=== PATIENT | female | born 1955 | race Caucasian/White ===

== ENCOUNTER → 2017-11-21 11:45 | Outpatient (CLI) | payer OTHER, SELFPAY ==
[2017-11-21 17:27] LABS: Hemoglobin A1c 7.1 % (4.2-6.3)
[2017-11-21 18:08] LABS: AST(SGOT) 17 U/L (15-37); Alanine Aminotransfer ALT/SGPT 28 U/L (13-56); Albumin, Serum 3.4 g/dL (3.2-5.0); Alkaline Phosphatase 182 U/L (45-117); Anion Gap 9 (5-15); BUN 10 mg/dL (7-18); BUN/Creat Ratio 13.4 RATIO (10-20); Chloride 101 mmol/L (98-107); Cholesterol 230 mg/dL (200); Creatinine, Serum 0.75 mg/dL (0.55-1.02); EST Glomerular Filtration Rate 83 mL/min (>60); Est Glom Filt Rate - Afr Amer 101 mL/min (>60); Globulin 3.8 g/dL (2.2-4.2); Glucose 164 mg/dL (74-106); High Density Lipoprotein 43 mg/dL; Potassium 3.3 mmol/L (3.5-5.1); Protein, Total 7.2 g/dL (6.4-8.2); Sodium Level 139 mmol/L (136-145); Triglycerides 300 mg/dL; Very Low Density Lipoprotein 60 mg/dL (5-40)
== END ==
PROVIDERS: Family Provider Family Medicine; PCP Family Medicine; Visit Provider Family Medicine
DX: E11.9 Type 2 diabetes mellitus without complications (principal); I10 Essential (primary) hypertension
CPT/HCPCS: 36415; 80048; 80061; 80076; 83036

== ENCOUNTER 2018-10-12 14:12 | Emergency (ER) | payer SELFPAY ==
[2018-10-12] VITALS (8 sets, daily range): BP systolic 155–199; BP diastolic 78–135; PULSE 71–92; RESP 15–18; TEMP 36.7–37.1; O2SAT 91–95; BMI 26.7
--- NOTE | 2018-10-12 16:27 | CT_ITS ---
STUDY: CT BRAIN WITHOUT CONTRAST REASON FOR EXAM: Female, 63 years old. Weakness. History of breast cancer. RADIATION DOSAGE (If Supplied By Facility): CTDIvol = ( 44.99 ) mGy, DLP = ( 728.62 ) mGycm TECHNIQUE: Transaxial CT imaging of the brain was performed without administration of intravenous contrast material. Individualized dose optimization techniques were used for this CT. COMPARISON: None. FINDINGS: There is no acute bleed or infarct. There are chronic ischemic and atrophic changes. The ventricles are normal in configuration. There is no hydrocephalus. The visualized paranasal sinuses are clear. The mastoid air cells are well aerated. There is no skull fracture. CT/Brain/Head without Contrast IMPRESSION: No acute intracranial abnormality. Chronic ischemic and atrophic changes. Electronically Signed: Juan Carlos Stallings, at 17:48 EST Tel , Service support ,
--- NOTE | 2018-10-12 16:28 | EKG12_ITS ---
Test Reason : Blood Pressure : / mmHG Vent. Rate : 082 BPM Atrial Rate : 082 BPM P-R Int : 118 ms QRS Dur : 086 ms QT Int : 406 ms P-R-T Axes : 000 020 245 degrees QTc Int : 474 ms Sinus rhythm with occasional Premature ventricular complexes ST & T wave abnormality, consider inferolateral ischemia Anterior septal [place], age undetermined, cannot be excluded Abnormal ECG Confirmed by KATHARINA LEO, MYRON ([id number]), supervising editor trailer JEFFERY MEJIA ([id number]) on 10/14/2018 3:27:16 PM Referred By: PATTI Confirmed By:MYRON POSADAS MD
--- NOTE | 2018-10-12 16:29 | ED.VISSUMM ---
- ER Visit Summary Date of Service: 10/12/18 Chief Complaint: Vertigo History of Present Illness: The patient is a 63 F who presents with 1 month of vertigo. Patient states she has had constant symptoms for the last month, described as feeling dizzy and spinning. Symptoms are worse if she changes positions or bends forward. She denies any period where she is not having symptoms but emphasizes that it is worse if she stands up or bends her head forward. Patient denies any associated fever, headache, vision changes, URI symptoms, chest pain, shortness of breath or cough, abdominal pain, nausea or vomiting, diarrhea, urinary symptoms or any other complaints. She has history of COPD, hypothyroidism, hypokalemia, diabetes, hypertension and cholesterol. No history of stroke or coronary artery disease. Patient is a smoker and drinks once a week. Patient is not on home oxygen. Physical Examination: Vital signs: afebrile, hemodynamically stable, 91% on room air General: well nourished, well developed, unkempt appearing, in no distress Skin: warm, dry, no rash, no pallor HEENT: normocephalic and atraumatic; PERRL, EOMI, dry mucous membranes Cardiovascular: regular rate and rhythm without murmurs, no peripheral edema, 2+ pulses all distal extremities Respiratory: No increased work of breathing, lungs show diffuse inspiratory and expiratory wheezing bilaterally Abdominal: Abdomen is soft, nontender with normoactive bowel sounds, no guarding or rebound, no masses MSK: Moves all extremities, no deformities, normal strength Neuro: Awake and alert, oriented ?4. No facial droop, sensation and motor function intact and symmetric, normal finger to nose and heel to garcia testing. Test Results: Abnormal Lab Results 10/12/18 10/12/18 10/12/18 16:35 16:35 16:35 WBC 10.7 RBC 5.21 Hgb 15.2 H Hct 45.6 MCV 87.5 MCH 29.2 MCHC 33.3 RDW 13.9 RDW Differential 44.9 H Plt Count 277 MPV 10.9 Immature Gran % (Auto) 0.300 Neut % (Auto) 58.4 Lymph % (Auto) 33.3 [place] % (Auto) 6.0 Eos % (Auto) 1.3 Baso % (Auto) 0.7 Absolute Neuts (auto) 6.2 Absolute Lymphs (auto) 3.55 Total Counted Not Reportable PT 11.9 INR 0.9 APTT 27.2 Sodium 134 L Potassium 3.2 L Chloride 94 L Carbon Dioxide 33.0 H Anion Gap 7 BUN 14 Creatinine 1.12 H Estim Creat Clear Calc 36.45 Est GFR (MDRD) Af Amer 63 Est GFR (MDRD) Non-Af 52 L BUN/Creatinine Ratio 12.5 Glucose 371 H Calcium 8.9 Total Bilirubin 0.50 AST 21 ALT 20 Alkaline Phosphatase 157 H Troponin I < 0.015 Total Protein 6.7 Albumin 3.4 Globulin 3.3 Albumin/Globulin Ratio 1.0 Urine Color Urine Clarity Urine pH Ur Specific [place] Urine Protein Urine Glucose (UA) Urine Ketones Urine Occult Blood Urine Nitrite Urine Bilirubin Urine Urobilinogen Ur Leukocyte Esterase Urine RBC Urine WBC Ur Squamous Epith Cells Urine Bacteria Urine Mucus Urine Yeast 10/12/18 17:35 WBC RBC Hgb Hct MCV MCH MCHC RDW RDW Differential Plt Count MPV Immature Gran % (Auto) Neut % (Auto) Lymph % (Auto) [place] % (Auto) Eos % (Auto) Baso % (Auto) Absolute Neuts (auto) Absolute Lymphs (auto) Total Counted PT INR APTT Sodium Potassium Chloride Carbon Dioxide Anion Gap BUN Creatinine Estim Creat Clear Calc Est GFR (MDRD) Af Amer Est GFR (MDRD) Non-Af BUN/Creatinine Ratio Glucose Calcium Total Bilirubin AST ALT Alkaline Phosphatase Troponin I Total Protein Albumin Globulin Albumin/Globulin Ratio Urine Color Yellow Urine Clarity Sl. Cloudy Urine pH 7.0 Ur Specific [place] 1.015 Urine Protein 100 H Urine Glucose (UA) 1000 H Urine Ketones Negative Urine Occult Blood 10 H Urine Nitrite Negative Urine Bilirubin Negative Urine Urobilinogen Normal Ur Leukocyte Esterase 100 H Urine RBC 0 SEEN Urine WBC 0-5 SEEN Ur Squamous Epith Cells 5-10 SEEN Urine Bacteria RARE Urine Mucus 0 SEEN Urine Yeast RARE Clinical Impression(s) from Imaging Studies Brain CT 10/12/18 16:27 IMPRESSION: No acute intracranial abnormality. Chronic ischemic and atrophic changes. Electronically Signed: Juan Carlos Stallings, at 17:48 EST Tel , Service support , Chest X-Ray 10/12/18 16:56 IMPRESSION: No acute thoracic pathology. Electronically Signed: Juan Carlos Stallings, at 17:15 EST Tel , Service support , Medications Given Discontinued Medications Sodium Chloride () 1,000 mls @ 1,000 mls/hr IV .Q1H ONE Stop: 10/12/18 17:26 Last Admin: 10/12/18 16:52 Dose: 1,000 mls/hr Meclizine HCl (Antivert) 25 mg PO X1 ONE Stop: 10/12/18 16:33 Last Admin: 10/12/18 16:52 Dose: 25 mg Emergency Department Course and Treatment: Patient states she has been having vertigo for 1 month that is worse with positional changes but is constant. Patient's history of her current complaint and her physical exam is less concerning for central origin, such as stroke. EKG showed a sinus rhythm with diffuse T wave changes, present on an old EKG. CBC unremarkable for leukocytosis or anemia. Chemistry showed no significant lab abnormalities other than mild hypokalemia, for which patient is aware. Urine was negative for infection. Troponin negative. Chest x-ray showed no acute process. Head CT was performed given patient's age and lack of prior workup, and it showed no acute changes. Patient was given IV fluids and meclizine and had great improvement in her symptoms. On reevaluation she remained neurologically intact with no deficits. She was discharged home with a prescription for meclizine. Her blood pressure was elevated while in the emergency department, and patient states she is not taking her medications because it is hard for her to get to the pharmacy to pick them up. That she takes them every other day or less so that they stretch out longer. We discussed the importance of medication compliance since she is currently hypertensive. We discussed the possibility of a mail order prescription, and she will discuss this with her doctor. Patient's blood pressure was not aggressively treated in the emergency department since it is likely chronically elevated and rapid lowering could have worse outcomes then patient taking her medication when she got home. Patient discharged home in improved condition. Treatment Plan: [] Disposition: [] Impression: Peripheral vertigo, episodic, medication noncompliance, poorly controlled hypertension This note was generated with [employer]Bion[employer] software. It may contain incorrect words, spelling, and punctuation that were not noted in review of the chart prior to signing ED Disposition - Plan for ED Patient: Disposition: Home or Assisted Living Chief Complaint: General Illness Instructions: Dizziness (Vertigo) and Balance Problems: Ensuring Your Safety, ED BPV Vertigo Prescriptions: RX: Meclizine HCl 25 mg PO TID PRN #15 tab PRN Reason: Vertigo Referrals: Lydia Moore MD [Primary Care Provider] - 3-5 Days Additional Instructions: Please look into getting your prescriptions delivered by mail so that you can take your medications as prescribed. Your blood pressure is too high and you need to be on your medications every day. Your blood sugar is also too high and you need occasions every day. Take the meclizine as needed for spinning sensation/vertigo. Follow-up with your doctor if you continue to have symptoms despite taking meclizine. If you have any worsening of your condition or any new concerning symptoms, please return immediately to the emergency department for another evaluation.
[2018-10-12 16:52] LABS: Absolute Lymphocyte Count 3.55 X10^3/ul (0.83-4.51); Absolute Neutrophil Count 6.2 X10^3/uL (2.0-7.7); Basophil# 0.07 X10^3/uL; Basophil% 0.7 % (0-1); Eosinophil# 0.14 X10^3/uL; Eosinophils% 1.3 % (0-5); Hematocrit 45.6 % (37-47); Hemoglobin 15.2 g/dl (12.0-15.0); Lymphocyte # 3.55 X10^3/ul (4.0); Lymphocyte % 33.3 % (19-41); Mean Corp Hgb Conc 33.3 g/gl (32-36); Mean Corpuscular Hgb 29.2 pg (27.0-32.0); Mean Corpuscular Volume 87.5 fL (81-99); Mean Platelet Vol. 10.9 fl (6.2-12.0); Monocyte# 0.64 X10^3/uL; Neutrophil # 6.24 X10^3/uL (2.7-7.7); Neutrophil % 58.4 % (47-70); Platelet Count 277 K/mm3 (150-450); RBC Distribution Width CV 13.9 % (11.6-14.6); RBC Distribution Width SD 44.9 fl (35.1-43.9); Red Blood Count 5.21 M/mm3 (4.2-5.4); White Blood Count 10.7 K/mm3 (4.4-11.0)
[2018-10-12] MEDS: 0.9% Normal Saline 1,000 ML 1000 ML IV (16:52)
[2018-10-12] MEDS: Meclizine HCl 25 MG Tablet PO (16:52)
--- NOTE | 2018-10-12 16:56 | RAD_ITS ---
STUDY: X-RAY CHEST REASON FOR EXAM: Female, 63 years old. Shortness of breath TECHNIQUE: Frontal and lateral views of the chest COMPARISON: 11/14/2016 FINDINGS: The lungs are clear. There are no pleural effusions. There is no pneumothorax. The heart is normal in size. The visualized osseous structures are within normal limits. RAD/Chest PA and Lateral IMPRESSION: No acute thoracic pathology. Electronically Signed: Juan Carlos Stallings, at 17:15 EST Tel , Service support ,
[2018-10-12 17:00] LABS: POSITIVE COUNT NO; POSITIVE DIFFERENTIAL NO; POSITIVE MORPHOLOGY NO
[2018-10-12 17:05] LABS: International Normalized Ratio 0.9; Partial Thromboplast Time 27.2 Seconds (24.1-36.2); Prothrombin Time (Protime)PT. 11.9 SECONDS (11.7-14.9)
[2018-10-12 17:16] LABS: AST(SGOT) 21 U/L (15-37); Alanine Aminotransfer ALT/SGPT 20 U/L (13-56); Albumin, Serum 3.4 g/dL (3.2-5.0); Alkaline Phosphatase 157 U/L (45-117); Anion Gap 7 (5-15); BUN 14 mg/dL (7-18); BUN/Creat Ratio 12.5 RATIO (10-20); Calcium,Total 8.9 mg/dL (8.5-10.1); Chloride 94 mmol/L (98-107); Creatinine, Serum 1.12 mg/dL (0.55-1.02); EST Glomerular Filtration Rate 52 mL/min (>60); Est Glom Filt Rate - Afr Amer 63 mL/min (>60); Estimated Creatinine Clearance 36.45 ml/min; Globulin 3.3 g/dL (2.2-4.2); Glucose 371 mg/dL (74-106); Potassium 3.2 mmol/L (3.5-5.1); Protein, Total 6.7 g/dL (6.4-8.2); Sodium Level 134 mmol/L (136-145)
[2018-10-12 17:39] LABS: Mucous, Urine 0 SEEN /hpf (<or=2+)
[2018-10-12 17:41] LABS: Color, Urine Yellow (Yellow); Glucose, Dipstick 1000 mg/dl (Normal); Ketone-Dipstick Negative (Negative); Leukocyte Esterase-Dipstick 100 /ul (Negative); Nitrite-Dipstick Negative (Negative); Occult Blood-Urine 10 /ul (Negative); Protein-Dipstick 100 mg/dl (Negative); Specific Gravity, Urine 1.015 (1.002-1.030); Urine Bilirubin Dipstick Negative (Negative); Urine Clarity Sl. Cloudy (Clear); Urine Urobilinogen Normal (Normal)
[2018-10-12 18:24] LABS: Bacteria RARE /hpf (None Seen); Squamous Epithelial Cells - UA 5-10 SEEN /hpf (5-10); White Blood Cells 0-5 SEEN /hpf (0-5)
[2018-10-12 18:25] LABS: Red Blood Cells-Urine 0 SEEN /hpf (0-5); Yeast-Urine RARE /hpf (None Seen)
--- NOTE | 2018-10-12 19:53 | ED.DEP ---
ED Disposition - Plan for ED Patient: Disposition: Home or Assisted Living Chief Complaint: General Illness Instructions: ED BPV Vertigo, Dizziness (Vertigo) and Balance Problems: Ensuring Your Safety Prescriptions: Meclizine HCl 25 mg PO TID PRN #15 tab PRN Reason: Vertigo Referrals: Lydia Moore MD [Primary Care Provider] - 3-5 Days Additional Instructions: Please look into getting your prescriptions delivered by mail so that you can take your medications as prescribed. Your blood pressure is too high and you need to be on your medications every day. Your blood sugar is also too high and you need occasions every day. Take the meclizine as needed for spinning sensation/vertigo. Follow-up with your doctor if you continue to have symptoms despite taking meclizine. If you have any worsening of your condition or any new concerning symptoms, please return immediately to the emergency department for another evaluation.
== END 2018-10-12 20:08 | disposition home or self-care (01) ==
PROVIDERS: Emergency Provider Emergency Medicine; Family Provider Family Medicine; PCP Family Medicine
DX: H81.399 Other peripheral vertigo, unspecified ear (principal); Z91.14 Patient's other noncompliance with medication regimen; I10 Essential (primary) hypertension; E11.9 Type 2 diabetes mellitus without complications; E78.00 Pure hypercholesterolemia, unspecified; J44.9 Chronic obstructive pulmonary disease, unspecified; E03.9 Hypothyroidism, unspecified; F17.200 Nicotine dependence, unspecified, uncomplicated
CPT/HCPCS: 70450; 71046; 80053; 81001; 84484; 85025; 85610; 85730; 93005; 96360; 99285; J7030; A4216

== ENCOUNTER 2019-03-23 17:28 | Emergency (ER) | payer SELFPAY ==
[2018-10-12 14:13] VITALS: BMI 26.7
[2019-03-23 17:28] VITALS: BP 187/110; PULSE 87; RESP 16; TEMP 36.6; O2SAT 92; BMI 25.7
--- NOTE | 2019-03-23 18:04 | RAD_ITS ---
STUDY: X-RAY CHEST REASON FOR EXAM: Female, 63 years old. Shortness of breath and cough TECHNIQUE: Frontal and lateral views of the chest. COMPARISON: October 12, 2018 FINDINGS: Surgical clips left axilla The lungs are clear and expanded. There is no demonstrated pleural abnormality. Normal size heart. Normal mediastinum and jason. Normal visualized pulmonary arteries. Normal visualized aortic arch and descending thoracic aorta. Normal visualized thoracic spine. Normal visualized ribs, clavicles, and shoulders. There is no demonstrated abnormality of the visualized soft tissue structures of the upper abdomen. RAD/Chest PA and Lateral IMPRESSION: No acute disease Electronically Signed: Kai Breaux MD at 19:42 EDT , Service support ,
--- NOTE | 2019-03-23 18:04 | CT_ITS ---
STUDY: CT BRAIN WITHOUT CONTRAST REASON FOR EXAM: Female, 63 years old. Dizziness and unsteadiness. Frequent falls x1 month. History of breast cancer, hypertension and diabetes. RADIATION DOSAGE (If Supplied By Facility): CTDIvol = ( 44.99 ) mGy, DLP = ( 745.49 ) mGycm TECHNIQUE: Transaxial CT imaging of the brain was performed without administration of intravenous contrast material. Individualized dose optimization techniques were used for this CT. COMPARISON: October 12, 2018. FINDINGS: Normal soft tissue structures. Normal calvarium. Normal size ventricles and extra-axial spaces for the patient's age. There are areas of decreased attenuation within the white matter tracts of the supratentorial brain, consistent with microvascular disease changes. There is a remote lacunar infarct in the head of the right caudate nucleus. Old lacunar infarct is seen in the left external capsule. Otherwise normal basal ganglia and thalami. Normal brainstem. Normal cerebellum. There is no intracranial hemorrhage. There are no findings of an acute ischemic infarction. Normal visualized paranasal sinuses. CT/Brain/Head without Contrast IMPRESSION: Chronic involutional changes without evidence of acute intracranial or calvarial abnormality. There is no major interval change. Electronically Signed: Jose Paredes DO at 19:19 EDT Tel [phone], Service support ,
--- NOTE | 2019-03-23 18:06 | EKG12_ITS ---
Test Reason : Blood Pressure : / mmHG Vent. Rate : 085 BPM Atrial Rate : 085 BPM P-R Int : 152 ms QRS Dur : 074 ms QT Int : 354 ms P-R-T Axes : 051 032 249 degrees QTc Int : 421 ms Normal sinus rhythm Septal infarct , age undetermined ST & T wave abnormality, consider inferolateral ischemia Abnormal ECG Confirmed by BLANKA FLORES ([id number]), art editor BRIGITTE VILLEGAS ([id number]) on 03/29/2019 10:18:00 AM Referred By: TL Confirmed By:BLANKA FLORES
--- NOTE | 2019-03-23 18:08 | ED.DCSUM_ITS ---
- ER Visit Summary Date of Service: 03/23/19 Chief Complaint: Unsteady gait and frequent falls History of Present Illness: The patient is a 63 F who presents with unsteady gait and frequent falls for the past month. Patient states she has been falling more frequently over the past month. Patient states she feels like she is off balance. Patient also admits to some slurred speech and increasing fatigue over this time. Patient also admits to some urinary frequency and occasional incontinence. Patient admits to subjective chills but denies any fevers. Patient admits to nausea but denies any vomiting. Patient also admits to chronic back pain. Patient denies any chest pain or shortness of breath. Physical Examination: Vital signs are stable except for mildly elevated blood pressure 187/110. Patient is afebrile. Patient is in no acute distress. Oral mucosa is pink and moist. Neck is supple. Trachea is midline. There is no JVD noted. Heart was regular rate and rhythm. Lungs are clear and equal bilaterally. Abdomen is soft. Bowel sounds are normal. There is no tenderness. There is no guarding noted. Cranial nerves II through XII are intact. There are no focal motor or sensory deficits noted. Extremities are intact. There is 2+ edema of the right lower extremity 1+ edema of the left lower extremity. Test Results: EKG showed normal sinus rhythm with a rate of 85. There are nonspecific ST-T wave changes in leads V4 through V6. These were unchanged compared to previous EKG dated 10/12/2018. CBC shows slight leukocytosis of 14.0. Potassium was slightly low at 2.8. Glucose was 270. Creatinine is 1.13. This was consistent with prior results. Urinalysis does not show any evidence of urinary tract infection. Troponin was normal. CT scan of the brain was obtained. There is no acute abnormality. Venous duplex of the right lower extremity was obtained and was negative. PA and lateral chest x-ray was obtained. There is no acute cardiopulmonary process. Emergency Department Course and Treatment: Patient was given a dose of oral potassium here. Patient was able to ambulate with a wheeled walker without difficulty. Patient feels like she can go home safely with a wheeled walker. Patient was instructed to take an extra dose of potassium tomorrow. Patient was instructed to follow-up with her primary care physician in 3-5 days. Patient understood and was agreeable with the plan. All questions were answered. Disposition: Discharge home Impression: 1. Hypokalemia 2. General weakness This note was generated with [employer]idence dictation software. It may contain incorrect words, spelling, and punctuation that were not noted in review of the chart prior to signing ED Disposition - Plan for ED Patient: Disposition: Home or Assisted Living Diagnosis: Hypokalemia, General weakness Instructions: Hypokalemia Referrals: Lydia Moore MD [Primary Care Provider] - 3-5 Days Additional Instructions: Your potassium was low today. Take an extra dose of potassium tomorrow. Follow-up with your primary care physician in 3 to 5 days.
--- NOTE | 2019-03-23 18:20 | US_ITS ---
STUDY: VENOUS DOPPLER ULTRASOUND - RIGHT LOWER EXTREMITY REASON FOR EXAM: Female, 63 years old. Swelling right calf TECHNIQUE: Ultrasound evaluation of the deep vein system to include barillas-scale imaging and compression was performed. Barillas-scale imaging and Doppler sonographic evaluation, including duplex spectral analysis and qualitative color flow sonography, was performed. COMPARISON: None. FINDINGS: Common Femoral Vein: Normal compression, spontaneity and augmentation. Normal color Doppler. Common Femoral Vein/Greater Saphenous Junction: Normal compression, spontaneity and augmentation. Normal color Doppler. Deep Femoral Vein: Normal compression, spontaneity and augmentation. Normal color Doppler. Femoral Proximal: Normal compression, spontaneity and augmentation. Normal color Doppler. Femoral Middle: Normal compression, spontaneity and augmentation. Normal color Doppler. Femoral Distal: Normal compression, spontaneity and augmentation. Normal color Doppler. Popliteal Vein: Normal compression, spontaneity and augmentation. Normal color Doppler. Posterior Tibial Vein: Normal compression, spontaneity and augmentation. Normal color Doppler. Peroneal Vein: Normal compression, spontaneity and augmentation. Normal color Doppler. US/Venous Duplex Imag/Limited/Uni IMPRESSION: Normal venous Doppler ultrasound of the lower extremity. Electronically Signed: Kai Breaux MD at 19:55 EDT , Service support ,
[2019-03-23 18:37] LABS: Absolute Lymphocyte Count 4.08 X10^3/ul (0.83-4.51); Absolute Neutrophil Count 8.8 X10^3/uL (2.0-7.7); Basophil# 0.09 X10^3/uL; Basophil% 0.6 % (0-1); Eosinophil# 0.19 X10^3/uL; Eosinophils% 1.4 % (0-5); Hematocrit 46.6 % (37-47); Hemoglobin 15.5 g/dl (12.0-15.0); Lymphocyte # 4.08 X10^3/ul (4.0); Lymphocyte % 29.2 % (19-41); Mean Corp Hgb Conc 33.3 g/gl (32-36); Mean Corpuscular Hgb 28.3 pg (27.0-32.0); Mean Corpuscular Volume 85.2 fL (81-99); Mean Platelet Vol. 10.7 fl (6.2-12.0); Monocyte# 0.77 X10^3/uL; Monocyte% 5.5 % (0-10); Neutrophil # 8.78 X10^3/uL (2.7-7.7); Neutrophil % 62.9 % (47-70); Platelet Count 292 K/mm3 (150-450); RBC Distribution Width CV 14.3 % (11.6-14.6); RBC Distribution Width SD 43.9 fl (35.1-43.9); Red Blood Count 5.47 M/mm3 (4.2-5.4)
[2019-03-23 18:39] LABS: POSITIVE COUNT NO; POSITIVE DIFFERENTIAL NO; POSITIVE MORPHOLOGY NO
[2019-03-23 18:58] LABS: ALB/GLOB Ratio 0.7 RATIO (0.9-2.4); AST(SGOT) 13 U/L (15-37); Alanine Aminotransfer ALT/SGPT 22 U/L (13-56); Albumin, Serum 3.1 g/dL (3.2-5.0); Alkaline Phosphatase 159 U/L (45-117); Anion Gap 10 (5-15); BUN 16 mg/dL (7-18); BUN/Creat Ratio 14.2 RATIO (10-20); Calcium,Total 10.2 mg/dL (8.5-10.1); Chloride 95 mmol/L (98-107); Creatinine, Serum 1.13 mg/dL (0.55-1.02); EST Glomerular Filtration Rate 51 mL/min (>60); Est Glom Filt Rate - Afr Amer 62 mL/min (>60); Estimated Creatinine Clearance 36.13 ml/min; Globulin 4.2 g/dL (2.2-4.2); Glucose 270 mg/dL (74-106); Potassium 2.8 mmol/L (3.5-5.1); Protein, Total 7.3 g/dL (6.4-8.2); Sodium Level 139 mmol/L (136-145)
[2019-03-23 19:36] LABS: Bacteria 0 SEEN /hpf (None Seen); Mucous, Urine 0 SEEN /hpf (<or=2+)
[2019-03-23 19:42] LABS: Color, Urine Yellow (Yellow); Glucose, Dipstick 100 mg/dl (Normal); Ketone-Dipstick Negative (Negative); Leukocyte Esterase-Dipstick Negative /ul (Negative); Nitrite-Dipstick Negative (Negative); Occult Blood-Urine 10 /ul (Negative); Protein-Dipstick 100 mg/dl (Negative); Urine Bilirubin Dipstick Negative (Negative); Urine Clarity Clear (Clear); Urine Urobilinogen Normal (Normal)
[2019-03-23 19:48] LABS: Red Blood Cells-Urine 0-5 SEEN /hpf (0-5); Squamous Epithelial Cells - UA 0-5 SEEN /hpf (5-10); White Blood Cells 0-5 SEEN /hpf (0-5)
[2019-03-23 20:23] VITALS: BP 163/112; PULSE 79; RESP 16; O2SAT 91
[2019-03-23 21:04] VITALS: BP 148/95; PULSE 84; RESP 18; O2SAT 94
== END 2019-03-23 21:05 | disposition home or self-care (01) ==
PROVIDERS: Emergency Provider Emergency Medicine; Family Provider Family Medicine; PCP Family Medicine
DX: E87.6 Hypokalemia (principal); R53.1 Weakness; R60.0 Localized edema; R47.81 Slurred speech; R35.0 Frequency of micturition; R32 Unspecified urinary incontinence; R29.6 Repeated falls; M54.9 Dorsalgia, unspecified; G89.29 Other chronic pain; E11.9 Type 2 diabetes mellitus without complications; I10 Essential (primary) hypertension; E78.00 Pure hypercholesterolemia, unspecified; E03.9 Hypothyroidism, unspecified; Z79.84 Long term (current) use of oral hypoglycemic drugs; Z79.899 Other long term (current) drug therapy; F17.200 Nicotine dependence, unspecified, uncomplicated
CPT/HCPCS: 70450; 71046; 80053; 81001; 84484; 85025; 93005; 93971; 99285; A4216

== ENCOUNTER → 2019-12-27 11:16 | Outpatient (CLI) | payer BC, SELFPAY ==
[2019-12-27 10:47] VITALS: BMI 25.7
[2019-12-27 12:56] LABS: Absolute Lymphocyte Count 3.82 X10^3/uL (0.83-4.51); Absolute Neutrophil Count 7.4 X10^3/uL (2.0-7.7); Basophil# 0.13 X10^3/uL; Eosinophil# 0.54 X10^3/uL; Eosinophils% 4.3 % (0-5); Hemoglobin 14.6 g/dL (12.0-15.0); Lymphocyte # 3.82 X10^3/ul (4.0); Lymphocyte % 30.4 % (19-41); Mean Corp Hgb Conc 31.7 g/dL (32-36); Mean Corpuscular Hgb 27.3 pg (27.0-32.0); Mean Platelet Vol. 11.4 fl (6.2-12.0); Monocyte# 0.65 X10^3/uL; Monocyte% 5.2 % (0-10); NRBC Flagged by Analyzer 0 % (0-5); Neutrophil # 7.38 X10^3/uL (2.7-7.7); Neutrophil % 58.6 % (47-70); Platelet Count 261 K/mm3 (150-450); RBC Distribution Width SD 43.4 fl (35.1-43.9); Red Blood Count 5.35 M/mm3 (4.2-5.4); White Blood Count 12.6 K/mm3 (4.4-11.0)
[2019-12-27 12:57] LABS: Hemoglobin A1c 11.7 % (4.2-6.3)
[2019-12-27 13:15] LABS: ALB/GLOB Ratio 0.8 RATIO (0.9-2.4); AST(SGOT) 16 U/L (15-37); Alanine Aminotransfer ALT/SGPT 18 U/L (13-56); Albumin, Serum 3.1 g/dL (3.2-5.0); Alkaline Phosphatase 179 U/L (45-117); Anion Gap 5 (5-15); BUN 15 mg/dL (7-18); Calcium,Total 9.3 mg/dL (8.5-10.1); Chloride 97 mmol/L (98-107); Cholesterol 284 mg/dL (200); Creatinine, Serum 1.07 mg/dL (0.55-1.02); EST Glomerular Filtration Rate 55 mL/min (>60); Est Glom Filt Rate - Afr Amer 66 mL/min (>60); Globulin 3.8 g/dL (2.2-4.2); Glucose 317 mg/dL (74-106); High Density Lipoprotein 45 mg/dL; Potassium 3.2 mmol/L (3.5-5.1); Protein, Total 6.9 g/dL (6.4-8.2); Sodium Level 135 mmol/L (136-145); Triglycerides 386 mg/dL; Very Low Density Lipoprotein 77 mg/dL (5-40)
[2019-12-27 14:55] LABS: Microalbumin:Creatinine Ratio 5368.7 mg/g CRE (<30 mg/g CRE)
== END ==
PROVIDERS: PCP Internal Medicine; Referring Provider Internal Medicine; Visit Provider Internal Medicine
DX: E03.9 Hypothyroidism, unspecified (principal); I10 Essential (primary) hypertension; E11.9 Type 2 diabetes mellitus without complications
CPT/HCPCS: 36415; 80053; 80061; 82043; 82570; 83036; 84443; 85025

== ENCOUNTER 2020-01-10 17:23 | Inpatient (IN) | payer BC, SELFPAY ==
[2020-01-04 09:14] VITALS: BMI 25.7
[2020-01-10 17:24] VITALS: BP 163/93; PULSE 99; RESP 18; TEMP 36.7; O2SAT 93; BMI 22.6
--- NOTE | 2020-01-10 17:35 | CT_ITS ---
STUDY: CT BRAIN WITHOUT CONTRAST REASON FOR EXAM: Female, 64 years old. FALL, HIT HEAD. NO LOC. RADIATION DOSAGE (If Supplied By Facility): CTDIvol = ( 44.99 ) mGy, DLP = ( 745.49 ) mGycm TECHNIQUE: Transaxial CT imaging of the brain was performed without administration of intravenous contrast material. Individualized dose optimization techniques were used for this CT. COMPARISON: 03/23/2019. FINDINGS: Normal soft tissue structures. Normal calvarium. There is moderate cerebral atrophy with widening of the extra-axial spaces and ventricular dilatation. There are areas of decreased attenuation within the white matter tracts of the supratentorial brain, consistent with microvascular disease changes. There is no intracranial hemorrhage. There are no findings of an acute words or infarct. Chronic right caudate and basal ganglia lacunar infarcts. Chronic left caudate, basal ganglia, and thalamic lacunar infarcts. Normal visualized paranasal sinuses. CT/Brain/Head without Contrast IMPRESSION: 1. No acute findings. 2. Chronic bilateral lacunar infarcts. 3. Microvascular ischemia. Atrophy. Electronically Signed: Rosario Perry MD at 19:09 EDT Tel , Service support ,
--- NOTE | 2020-01-10 17:36 | EKG12_ITS ---
Test Reason : FALL Blood Pressure : / mmHG Vent. Rate : 103 BPM Atrial Rate : 103 BPM P-R Int : 144 ms QRS Dur : 082 ms QT Int : 332 ms P-R-T Axes : 066 046 231 degrees QTc Int : [address] & T wave abnormality, consider inferior ischemia ST & T wave abnormality, consider anterolateral ischemia Abnormal ECG Confirmed by KATHARINA LEO, MYRON ([id number]), food expeditor CARLOS SNELL ([id number]) on 01/11/2020 1:43:58 PM Referred By: DC Confirmed By:MYRON POSADAS MD
[2020-01-10] MEDS: fentaNYL 100 MCG/2 ML Ampul 50 MCG IV (17:59)
[2020-01-10 18:00] LABS: Absolute Lymphocyte Count 3.65 X10^3/uL (0.83-4.51); Basophil# 0.08 X10^3/uL; Basophil% 0.6 % (0-1); Eosinophil# 0.13 X10^3/uL; Hematocrit 46.9 % (37-47); Hemoglobin 15.2 g/dL (12.0-15.0); Lymphocyte # 3.65 X10^3/ul (4.0); Lymphocyte % 28.7 % (19-41); Mean Corp Hgb Conc 32.4 g/dL (32-36); Mean Corpuscular Hgb 28.4 pg (27.0-32.0); Mean Corpuscular Volume 87.5 fL (81-99); Mean Platelet Vol. 10.9 fl (6.2-12.0); Monocyte# 0.74 X10^3/uL; Monocyte% 5.8 % (0-10); NRBC Flagged by Analyzer 0 % (0-5); Neutrophil # 8.01 X10^3/uL (2.7-7.7); Platelet Count 341 K/mm3 (150-450); RBC Distribution Width CV 13.6 % (11.6-14.6); RBC Distribution Width SD 43.4 fl (35.1-43.9); Red Blood Count 5.36 M/mm3 (4.2-5.4); White Blood Count 12.7 K/mm3 (4.4-11.0)
[2020-01-10] MEDS: Ondansetron 4 MG/2 ML Vial IV (18:00)
[2020-01-10 18:14] LABS: Anion Gap 5 (5-15); BUN 18 mg/dL (7-18); BUN/Creat Ratio 15.9 RATIO (10-20); Calcium,Total 9.5 mg/dL (8.5-10.1); Chloride 102 mmol/L (98-107); Creatinine, Serum 1.13 mg/dL (0.55-1.02); EST Glomerular Filtration Rate 51 mL/min (>60); Est Glom Filt Rate - Afr Amer 62 mL/min (>60); Estimated Creatinine Clearance 35.65 ml/min; Glucose 316 mg/dL (74-106); Potassium 3.1 mmol/L (3.5-5.1); Sodium Level 138 mmol/L (136-145)
[2020-01-10 18:23] VITALS: BP 164/91; PULSE 88; RESP 16; O2SAT 94
--- NOTE | 2020-01-10 18:30 | RAD_ITS ---
STUDY: X-RAY - PELVIS AND RIGHT HIP REASON FOR EXAM: Female, 64 years old. Fall today. Rt hip pain TECHNIQUE: 3 views of the pelvis and hip. COMPARISON: None. FINDINGS: Acute intertrochanteric fracture of the right hip, with 1.5 cm medial displacement of the shaft relative to the femoral neck. There is moderate varus angulation. Nondisplaced fracture of the lesser trochanters present. Insufficiency fracture of the sacral ala is questioned. Soft tissues and bony structures are otherwise unremarkable. RAD/HIP, UNI W/ Pelvis 2-3 Views IMPRESSION: 1. Acute intertrochanteric fracture of the right femur with moderate varus angulation. 2. Suspected sacral insufficiency fracture. Electronically Signed: Rosario Perry MD at 19:11 EDT Tel , Service support ,
--- NOTE | 2020-01-10 18:30 | RAD_ITS ---
STUDY: X-RAY - RIGHT SHOULDER REASON FOR EXAM: Female, 64 years old. Fall today. Rt shoulder pain TECHNIQUE: 2 view(s) of the shoulder. COMPARISON: None. FINDINGS: Bones are demineralized. Normal glenohumeral articulation. Normal acromioclavicular joint. Normal acromion. Normal humeral head and visualized proximal humerus. The soft tissue structures are unremarkable. Normal visualized pulmonary apex. RAD/Shoulder min 2 Views IMPRESSION: Bony demineralization, otherwise negative x-ray examination of the shoulder. Electronically Signed: Rosario Perry MD at 19:17 EDT Tel , Service support ,
--- NOTE | 2020-01-10 18:30 | RAD_ITS ---
STUDY: X-RAY CHEST REASON FOR EXAM: Female, 64 years old. Fall today. Rt hip pain. Pre-op chest TECHNIQUE: AP chest. COMPARISON: 03/23/2019. FINDINGS: The lungs are clear and expanded. There is no demonstrated pleural abnormality. Normal size heart. Normal mediastinum and jason. Normal visualized pulmonary arteries. Normal visualized aortic arch and descending thoracic aorta. Normal visualized thoracic spine. Normal visualized ribs, clavicles, and shoulders. There is no demonstrated abnormality of the visualized soft tissue structures of the upper abdomen. RAD/Chest 1 View (Portable) IMPRESSION: Normal x-ray examination of the chest. Electronically Signed: Roasrio Perry MD at 19:12 EDT Tel , Service support ,
[2020-01-10 18:38] LABS: Prothrombin Time (Protime)PT. 12.5 SECONDS (11.7-14.9)
[2020-01-10 19:26] VITALS: BP 164/91; PULSE 98; RESP 18; O2SAT 96
--- NOTE | 2020-01-10 19:27 | ED.DCSUM_ITS ---
- ER Visit Summary Date of Service: 01/10/20 Chief Complaint: Fall History of Present Illness: The patient is a 64 F who fell shortly prior to arrival. She has a history of dizziness and vertigo. This is not a new symptom for her. She had an episode today and it caused her to fall. She landed on her right hip. She complains of pain and is unable to ambulate. She also has right shoulder pain and she hit her head. She did not lose consciousness. She does not take blood thinners. Physical Examination: Afebrile and vital signs unremarkable. Head and neck atraumatic. Heart regular. Lungs clear. Abdomen soft. Right hip tender. Right leg shortened and abnormally rotated. Neurovascular intact distally. Test Results: CT brain unremarkable. Chest x-ray normal. Right hip shows a intertrochanteric fracture and sacral insufficiency fracture. EKG showed sinus rhythm at a rate of [address]-T wave changes. White count 12.7, hemoglobin 15.2, potassium 3.1, glucose 316, creatinine 1.13. Coags normal. Emergency Department Course and Treatment: Patient received fentanyl for pain. She was treated with Zofran as well. X-rays showed a right hip fracture. She was discussed with Dr. El Maurer who will see the patient if she is cleared by medicine. I contacted the hospitalist to admit. Treatment Plan: As above Disposition: Admission Impression: Right hip intertrochanteric fracture This note was generated with [employer] dictation software. It may contain incorrect words, spelling, and punctuation that were not noted in review of the chart prior to signing ED Disposition - Plan for ED Patient: Referrals: Tera Butts MD [Primary Care Provider] -
[2020-01-10 19:48] VITALS: BP 143/90; PULSE 91; RESP 18; TEMP 36.6; O2SAT 95
--- NOTE | 2020-01-10 19:53 | HP.PCM_ITS ---
History of Present Illness Date of Admission: 01/10/20 Chief Complaint: fall The patient is a 64 year old F who was in her normal state of health and then became dizzy as she coming does with her vertigo and fell. Did not lose consciousness but landed on her hip and pain. Also laying on her right shoulder. Presented to the emergency room and was found to have an acute intertrochanteric fracture of the right femur with moderate varus angulation. Possible suspected sacral insufficiency fracture as well. Shoulder x-ray was unremarkable. Patient did receive fentanyl in the emergency room. Dr. Maurer, of orthopedics, was contacted through the emergency room and said he would be happy to see patient in consultation. Patient states that she gets the dizzy intermittently but does not elaborate in regards to addressing how frequent these episodes are. She states that other than when she has her vertigo her performance status is pretty well. She does not engage in stairs but does do routine chores around her house where she does not develop any shortness of breath nor chest pain with that. [] Past Medical History Past Medical History (Chronic Problems): Chronic Problems (Last Reviewed 12/27/19 @ 10:47 by Ivonne Melissa) Type 2 diabetes mellitus (Chronic) Hypothyroidism (Chronic) Vision problems (Chronic) Thyroid disease (Chronic) High blood pressure (Chronic) Hearing problem (Chronic) Diabetes (Chronic) Breast cancer (Chronic) Asthma (Chronic) Arthritis (Chronic) Medical History: Medical History (Last Reviewed 01/10/20 @ 19:[address] Howard Summers, DO) Vision problems (Chronic) H54.7 Thyroid disease (Chronic) E07.9 High blood pressure (Chronic) I10 Hearing problem (Chronic) H91.90 Diabetes (Chronic) E11.9 Carpal tunnel syndrome (Acute) G56.00 Breast cancer (Chronic) C50.919 Asthma (Chronic) J45.909 Arthritis (Chronic) M19.90 Allergies aspirin Allergy (Unknown, Verified 01/10/20 17:27) Nausea albuterol Adverse Reaction (Verified 01/10/20 17:27) I GET VERY SHAKEY/HYPERVENTILATING Penicillins Adverse Reaction (Verified 01/10/20 17:27) Nausea/Vom/Diarrhea Home Medications: Ambulatory Orders Medication Instructions Recorded Glimepiride [Amaryl] 4 mg PO BID 12/22/14 Potassium Chloride [K-Dur] 20 meq PO DAILY 12/22/14 metFORMIN HCl [Glucophage] 500 mg PO DAILY 12/22/14 Anastrozole 1 mg PO DAILY 03/23/19 Amlodipine [Norvasc] 5 mg PO DAILY 01/10/20 Enalapril Maleate [Vasotec] 10 mg PO BID 01/10/20 Hydrochlorothiazide [Hctz] 25 mg PO DAILY 01/10/20 Insulin Glargine,Hum.rec.anlog 10 unit SUBCUT DAILY 01/10/20 [Lantus Solostar U-100 Insulin] Levothyroxine Sodium [Synthroid] 125 mcg PO DAILY 01/10/20 Smoking Status: Heavy Smoker (>10/day) Tobacco Use: Cigarettes Alcohol: None Drugs: Marijuana - 3 times per day - *Family History Maternal Family History: Family History (Last Reviewed 01/10/20 @ 19:[address] Howard Summers, DO) Father Cancer Brother Heart disease Review of Systems Constitutional: Denies: Anorexia, Chills, Fever, Night Sweats Eyes: Denies: Blurred vision, Double vision HEENT: Denies: Head Aches, Sinus Congestion, Sinus Drainage Cardiovascular: Denies: Chest Pain, Palpitations Respiratory: Denies: Cough, Shortness of breath at rest, Sputum production Gastrointestinal: Denies: Abdominal Pain, Nausea, Vomiting Genitourinary: Denies: Dysuria Musculoskeletal: Reports: - - Right hip pain Skin: Denies: Dryness, Jaundice Neurological: Reports: Balance problems Psychiatric: Denies: Anxiety, Depression Hematologic/ Lymphatic: Denies: Easy Bruising, Easy Bleeding, Hx of blood clot Comment: All review of systems were negative except as mentioned above in the history of present illness and the other review of systems. VTE Information - Inpt Only VTE Present on Admission: No VTE Mechan Device Prophylaxis: SCD's VTE Pharm Prophylaxis ordered?: No Reason prophylaxis not ordered:: Medical Contraindication - Physical Exam Vitals/I&O's: Vital Signs Temp Pulse Resp BP Pulse Ox 36.6 C 91 18 143/90 H 95 01/10/20 19:48 01/10/20 19:48 01/10/20 19:48 01/10/20 19:48 01/10/20 19:48 Oxygen Flow Rate (L/min) 3 Oxygen Delivery Method Nasal Cannula Weight: 52.7 kg Body Mass Index (BMI) 22.6 Finger Stick Blood Glucose 181 General: Alert, Cooperative, No apparent distress, - - Appears older than stated age HEENT: Atraumatic, Normocephalic Oral: Moist Mucosa, - - Edentulous Neck: No Nodes, Trachea Midline Lungs: Clear to auscultation, Normal air movement, No rhonchi, No wheeze, No rales Cardiovascular: Regular rate, Regular Rhythm, Normal S1, Normal S2, No murmurs Abdomen: Bowel Sounds Present, Soft, Non Tender, Non-Distended, No Hepato- splenomegaly Extremities: No edema, No Calf Tenderness, - - Right lower extremity shortened as compared to the left Skin: No rashes, No breakdown Musculoskeletal: Cachexia, Muscle Wasting Neurological: Muscle tone normal, Sensory exam intact to light touch and pain Psych/Mental Status: Normal Affect, Appropriate Laboratory Results 01/10/20 17:44: WBC 12.7 H, RBC 5.36, Hgb 15.2 H, Hct 46.9, MCV 87.5, MCH 28.4, MCHC 32.4, RDW Std Deviation 43.4, RDW Coeff of Chad 13.6, Plt Count 341, MPV 10.9, Immature Gran % (Auto) 0.900, Neut % (Auto) 63.0, Lymph % (Auto) 28.7, [place] % (Auto) 5.8, Eos % (Auto) 1.0, Baso % (Auto) 0.6, Absolute Neuts (auto) 8.0 H, Absolute Lymphs (auto) 3.65, Nucleated RBC % 0 01/10/20 17:44: PT 12.5, INR 1.0, APTT 31.0 01/10/20 17:44: Sodium 138, Potassium 3.1 L, Chloride 102, Carbon Dioxide 31.0, Anion Gap 5, BUN 18, Creatinine 1.13 H, Estim Creat Clear Calc 35.65, Est GFR (MDRD) Af Amer 62, Est GFR (MDRD) Non-Af 51 L, BUN/Creatinine Ratio 15.9, Glucose 316 H, Calcium 9.5 EKG reviewed showed sinus tach but no other acute changes. Clinical Impression(s) from Imaging Studies Brain CT 01/10/20 17:35 IMPRESSION: 1. No acute findings. 2. Chronic bilateral lacunar infarcts. 3. Microvascular ischemia. Atrophy. Electronically Signed: Rosario Perry MD at 19:09 EDT Tel , Service support , Chest X-Ray 01/10/20 18:30 IMPRESSION: Normal x-ray examination of the chest. Electronically Signed: Rosario Perry MD at 19:12 EDT Tel , Service support , Hip/Pelvis X-Ray 01/10/20 18:30 IMPRESSION: 1. Acute intertrochanteric fracture of the right femur with moderate varus angulation. 2. Suspected sacral insufficiency fracture. Electronically Signed: Rosario Perry MD at 19:11 EDT Tel , Service support , Shoulder X-Ray 01/10/20 18:30 IMPRESSION: Bony demineralization, otherwise negative x-ray examination of the shoulder. Electronically Signed: Rosario Perry MD at 19:17 EDT Tel , Service support , Assessment/Plan All Active Problems (Last Reviewed 12/27/19 @ 10:47 by Ivonne Melissa) Carpal tunnel syndrome (Acute) 1. Acute right intertrochanteric femur fracture: * Status post fall associated with vertigo. * Patient is medically cleared to proceed with surgery. The NSQIP was assessed and offered no additional recommendations for clearance at this time. * We will fine-tune some of the subtle derangement she has such as her hypokalemia but otherwise nothing to prohibit from her from proceeding with surgery. * Patient is chronically ill given her underlying COPD and other medical comorbidities but medically cleared to proceed with surgery. We will check a 25-hydroxy vitamin D level. * Patient is on Arimidex at baseline which could make her prone to osteoporosis but will continue with that for now 2. COPD: Stable at this time. 3. Diabetes mellitus type 2: Stable. * Patient is on basal insulin in the mornings. We will give her half dose in the morning anticipate that she will have surgery. * Hold metformin. * Sliding scale insulin 4. Hypokalemia: Likely secondary to HCTZ. Will replace check magnesium level and replace accordingly. 5. hypertension: Continue with HCTZ and amlodipine. 6. VTE prophylaxis: High risk but will commence with SCDs for now. Hold chemical prophylaxis until after surgery. 7. Advanced care planning: Discussed with the patient about advanced directives, CPR and intubation. Patient initially said that she wants to be full code but not be intubated. I told her that generally if someone needs to have CPR that they are oftentimes intubated. She then stated that she would not want to have CPR in the event of cardiac arrest. Patient is okay with temporary intubation for surgery. CODE STATUS is DNR Comfort Care arrest no intubation otherwise. Essential Procedure Criteria Procedure Essential: Yes Criteria Note: Urgent procedure for hip repair post fracture Risk to Patient if Procedure Delayed: Threat of permanent dysfunction of an extremity or organ system Inpatient E&M: 83715 Init Hosp L3
[2020-01-10 20:15] VITALS: BP 186/99; PULSE 111; RESP 20; TEMP 37; O2SAT 95
[2020-01-10 20:31] VITALS: BMI 23.5
[2020-01-10 20:40] VITALS: BMI 23.6
--- NOTE | 2020-01-10 20:40 | NURSING ---
Pt reports no flu shot since 2015. Reports last PNA shot was about 6 years ago.
[2020-01-10 20:43] LABS: Vitamin D,25 Hydroxy 17.9 ng/mL
[2020-01-10] MEDS: Lisinopril 10 MG Tablet PO (21:43)
[2020-01-10] MEDS: oxyCODONE 5 MG Tablet 10 MG PO (21:43)
[2020-01-10] MEDS: 0.9% Saline Lock 10 ML Syringe IV (21:43)
[2020-01-10 21:53] VITALS: BP 155/79; PULSE 99; RESP 16; TEMP 37; O2SAT 95
[2020-01-10 23:16] LABS: Bedside Glucose 278 mg/dL (70-110)
[2020-01-11] VITALS (16 sets, daily range): BP systolic 117–177; BP diastolic 68–99; PULSE 87–115; RESP 9–20; TEMP 36.8–38.9; O2SAT 91–95; BMI 23.5; BMI 23.6
[2020-01-11] MEDS: Morphine 2 MG/ML Syringe IV ×3 (04:18→17:04)
[2020-01-11 05:53] LABS: Absolute Neutrophil Count 11.2 X10^3/uL (2.0-7.7); Basophil# 0.08 X10^3/uL; Basophil% 0.5 % (0-1); Eosinophil# 0.07 X10^3/uL; Eosinophils% 0.5 % (0-5); Hematocrit 42.5 % (37-47); Hemoglobin 13.6 g/dL (12.0-15.0); Lymphocyte % 21.2 % (19-41); Mean Corpuscular Hgb 28.1 pg (27.0-32.0); Mean Corpuscular Volume 87.8 fL (81-99); Mean Platelet Vol. 10.9 fl (6.2-12.0); Monocyte# 0.81 X10^3/uL; Monocyte% 5.2 % (0-10); NRBC Flagged by Analyzer 0 % (0-5); Platelet Count 312 K/mm3 (150-450); RBC Distribution Width CV 13.6 % (11.6-14.6); RBC Distribution Width SD 43.8 fl (35.1-43.9); Red Blood Count 4.84 M/mm3 (4.2-5.4); White Blood Count 15.6 K/mm3 (4.4-11.0)
[2020-01-11] MEDS: 0.9% Saline Lock 10 ML Syringe IV ×2 (06:06→17:04)
[2020-01-11 06:14] LABS: Anion Gap 5 (5-15); BUN 11 mg/dL (7-18); BUN/Creat Ratio 14.1 RATIO (10-20); Calcium,Total 8.5 mg/dL (8.5-10.1); Chloride 106 mmol/L (98-107); Creatinine, Serum 0.78 mg/dL (0.55-1.02); EST Glomerular Filtration Rate 79 mL/min (>60); Est Glom Filt Rate - Afr Amer 95 mL/min (>60); Estimated Creatinine Clearance 51.65 ml/min; Glucose 149 mg/dL (74-106); Magnesium 1.4 mg/dL (1.6-2.6); Potassium 3.4 mmol/L (3.5-5.1); Sodium Level 140 mmol/L (136-145); Thyroid Stim Hormone (TSH) 0.87 uIU/mL (0.358-3.74)
[2020-01-11 07:24] LABS: Hemoglobin A1c 10.8 % (4.2-6.3)
[2020-01-11] MEDS: Lactated Ringers 1,000 ML 100 ML IV ×3 (08:49→20:43)
[2020-01-11] MEDS: Potassium Chloride 10mEq/100mL 10 MEQ/100 ML IV.SOLN. 100 MEQ IV BOLUS ×2 (08:51→10:11)
[2020-01-11] MEDS: Lisinopril 10 MG Tablet PO ×2 (09:17→22:21)
[2020-01-11] MEDS: amLODIPine 5 MG Tablet PO (09:18)
[2020-01-11] MEDS: Levothyroxine 125 MCG Tablet PO ×2 (09:18→09:19)
[2020-01-11 09:25] LABS: Bedside Glucose 139 mg/dL (70-110)
--- NOTE | 2020-01-11 11:17 | PCM.CONS.GEN ---
Problem List (1) Intertrochanteric fracture of right hip Status: Acute (2) Type 2 diabetes mellitus Status: Chronic (3) Hypothyroidism Status: Chronic (4) Vision problems Status: Chronic (5) Thyroid disease Status: Chronic (6) High blood pressure Status: Chronic (7) Hearing problem Status: Chronic (8) Diabetes Status: Chronic (9) Carpal tunnel syndrome Status: Chronic (10) Breast cancer Status: Chronic (11) Asthma Status: Chronic (12) Arthritis Status: Chronic Reason for Consult Date of Consultation: 01/11/20 History of Present Illness: The patient is a 64 year old female that fell yesterday injuring her right hip. Was fine before that. Was brought to the emergency room and diagnosed with a hip fracture. Orthopedics was appropriately consulted. [] Past Medical History Past Medical History (Chronic Problems): Chronic Problems (Last Reviewed 01/10/20 @ 19:[address] Howard Summers, DO) Type 2 diabetes mellitus (Chronic) Hypothyroidism (Chronic) Vision problems (Chronic) Thyroid disease (Chronic) High blood pressure (Chronic) Hearing problem (Chronic) Diabetes (Chronic) Carpal tunnel syndrome (Chronic) Breast cancer (Chronic) Asthma (Chronic) Arthritis (Chronic) Medical History: Medical History (Last Reviewed 01/10/20 @ 19:[address] Howard Summers, ) Vision problems (Chronic) H54.7 Thyroid disease (Chronic) E07.9 High blood pressure (Chronic) I10 Hearing problem (Chronic) H91.90 Diabetes (Chronic) E11.9 Carpal tunnel syndrome (Acute) G56.00 Breast cancer (Chronic) C50.919 Asthma (Chronic) J45.909 Arthritis (Chronic) M19.90 Allergies aspirin Allergy (Unknown, Verified 01/10/20 17:27) Nausea albuterol Adverse Reaction (Verified 01/10/20 17:27) I GET VERY SHAKEY/HYPERVENTILATING Penicillins Adverse Reaction (Verified 01/10/20 17:27) Nausea/Vom/Diarrhea Home Medications: Ambulatory Orders Medication Instructions Recorded Potassium Chloride [K-Dur] 20 meq PO DAILY 12/22/14 metFORMIN HCl [Glucophage] 500 mg PO DAILY 12/22/14 Anastrozole 1 mg PO DAILY 03/23/19 Amlodipine [Norvasc] 5 mg PO DAILY 01/10/20 Enalapril Maleate [Vasotec] 10 mg PO BID 01/10/20 Hydrochlorothiazide [Hctz] 25 mg PO DAILY 01/10/20 Insulin Glargine,Hum.rec.anlog 10 unit SUBCUT DAILY 01/10/20 [Lantus Solostar U-100 Insulin] Levothyroxine Sodium [Synthroid] 125 mcg PO DAILY 01/10/20 Smoking Status: Heavy Smoker (>10/day) Tobacco Use: Cigarettes Alcohol: None Drugs: Marijuana - 3 times per day - *Family History Maternal Family History: Family History (Last Reviewed 01/10/20 @ 19:[address] Howard Summers DO) Father Cancer Brother Heart disease Review of Systems HEENT: Denies: Head Aches, Sinus Congestion, Sinus Drainage Cardiovascular: Reports: Light Headedness. Denies: Chest Pain, Palpitations Respiratory: Denies: Cough, Shortness of breath at rest, Sputum production Gastrointestinal: Denies: Abdominal Pain, Nausea, Vomiting Genitourinary: Denies: Dysuria Musculoskeletal: Reports: Leg Pain Skin: Denies: Rash, Wounds Neurological: Denies: Numbness, Tingling, Focal weakness Psychiatric: Denies: Anxiety, Depression, Homicidal Ideations, Suicidal Ideations Hematologic/ Lymphatic: Denies: Easy Bruising, Easy Bleeding Patient Problems: Active and Suspected Problems (Last Reviewed 01/10/20 @ 19:[address] Howard Summers DO) Intertrochanteric fracture of right hip (Acute) Objective: Right hip has shortening and external rotation. Right hip has pain on palpation. No calf pain or swelling bilaterally. Negative Homans sign bilaterally. She is able to gently move her toes and ankles bilaterally. She had no pain on palpation to left hip. No pain with moving the left hip. X-rays AP pelvis AP and lateral right hip there is a displaced intertrochanteric fracture of the right hip. Lab work and vital signs reviewed - Physical Exam Vitals/I&O's: Vital Signs Temp Pulse Resp BP Pulse Ox 99.0 F 90 16 156/95 H 92 01/11/20 07:46 01/11/20 08:06 01/11/20 07:46 01/11/20 07:46 01/11/20 07:46 Oxygen Flow Rate (L/min) 2 Oxygen Delivery Method Nasal Cannula Weight: 54.7 kg Body Mass Index (BMI) 23.5 Finger Stick Blood Glucose 181 Intake and Output for Last 24 Hours 01/09/20 01/10/20 01/11/20 23:59 23:59 23:59 Intake Total 450 / 450 1085 / 1085 Output Total 340 / 340 320 / 320 Balance 110 / 110 765 / 765 Laboratory Results 01/10/20 17:44: WBC 12.7 H, RBC 5.36, Hgb 15.2 H, Hct 46.9, MCV 87.5, MCH 28.4, MCHC 32.4, RDW Std Deviation 43.4, RDW Coeff of Chad 13.6, Plt Count 341, MPV 10.9, Immature Gran % (Auto) 0.900, Neut % (Auto) 63.0, Lymph % (Auto) 28.7, [place] % (Auto) 5.8, Eos % (Auto) 1.0, Baso % (Auto) 0.6, Absolute Neuts (auto) 8.0 H, Absolute Lymphs (auto) 3.65, Nucleated RBC % 0 01/10/20 17:44: PT 12.5, INR 1.0, APTT 31.0 01/10/20 17:44: Sodium 138, Potassium 3.1 L, Chloride 102, Carbon Dioxide 31.0, Anion Gap 5, BUN 18, Creatinine 1.13 H, Estim Creat Clear Calc 35.65, Est GFR (MDRD) Af Amer 62, Est GFR (MDRD) Non-Af 51 L, BUN/Creatinine Ratio 15.9, Glucose 316 H, Calcium 9.5 01/10/20 17:44: Vitamin D 25-Hydroxy 17.9 01/10/20 21:52: POC Glucose 278 H 01/11/20 05:20: WBC 15.6 H, RBC 4.84, Hgb 13.6, Hct 42.5, MCV 87.8, MCH 28.1, MCHC 32.0, RDW Std Deviation 43.8, RDW Coeff of Chad 13.6, Plt Count 312, MPV 10.9, Immature Gran % (Auto) 0.600, Neut % (Auto) 72.0 H, Lymph % (Auto) 21.2, [place] % (Auto) 5.2, Eos % (Auto) 0.5, Baso % (Auto) 0.5, Absolute Neuts (auto) 11.2 H, Absolute Lymphs (auto) 3.30, Nucleated RBC % 0 01/11/20 05:20: Sodium 140, Potassium 3.4 L, Chloride 106, Carbon Dioxide 29.0, Anion Gap 5, BUN 11, Creatinine 0.78, Estim Creat Clear Calc 51.65, Est GFR (MDRD) Af Amer 95, Est GFR (MDRD) Non-Af 79, BUN/Creatinine Ratio 14.1, Glucose 149 H, Calcium 8.5, Magnesium 1.4 L, TSH 0.87 01/11/20 05:20: Hemoglobin A1c 10.8 H 01/11/20 05:20: Blood Type A POSITIVE, Antibody Screen NEGATIVE 01/11/20 09:24: POC Glucose 139 H Current Medications Acetaminophen (Tylenol) 650 mg PO Q6H PRN PRN PRN Reason: Pain Score 1-10/Temp > 100.7 F Amlodipine Besylate (Norvasc) 5 mg PO DAILY COUNT INCLUDES THE [facility] Last Admin: 01/11/20 09:18 Dose: 5 mg Documented by: Anastrozole (Arimidex) 1 mg PO DAILY COUNT INCLUDES THE [facility] Dextrose (D50w Syringe) 0 gm IV X1 PRN; Protocol PRN Reason: Hypoglycemia Glucagon () 1 mg IM .X1 PRN PRN Reason: Hypoglycemia Hydrochlorothiazide (Hctz) 25 mg PO DAILY COUNT INCLUDES THE [facility] Sodium Chloride () 250 mls @ 15 mls/hr IV .[id number] PRN PRN Reason: Saline Flush Sodium Chloride () 250 mls @ 15 mls/hr IV .[id number] PRN PRN Reason: Additional IVPB Infusion Lactated Ringer's () 1,000 mls @ 100 mls/hr IV .Q10H COUNT INCLUDES THE [facility] Last Admin: 01/11/20 08:49 Dose: 100 mls/hr Documented by: Insulin Glargine (Lantus (Bkc)) 10 units SC DAILY COUNT INCLUDES THE [facility] Insulin Human Lispro (Humalog Kwikpen (Bk)) 0 unit SC TIDAC COUNT INCLUDES THE [facility]; Protocol Last Admin: 01/11/20 06:55 Dose: Not Given Documented by: Levothyroxine Sodium (Synthroid) 125 mcg PO DAILY@0600 COUNT INCLUDES THE [facility] Last Admin: 01/11/20 09:19 Dose: 125 mcg Documented by: Lisinopril (Zestril) 10 mg PO BID VANNESSA Last Admin: 01/11/20 09:17 Dose: 10 mg Documented by: Melatonin (Melatonin) 3 mg PO QHS PRN PRN PRN Reason: INSOMNIA Morphine Sulfate () 2 mg IV Q3H PRN PRN PRN Reason: breakthrough pain Last Admin: 01/11/20 08:16 Dose: 2 mg Documented by: Oxycodone HCl (Oxyir) 5 mg PO Q4H PRN PRN PRN Reason: Pain Score 4-5/10 Oxycodone HCl (Oxyir) 10 mg PO Q4H PRN PRN PRN Reason: Pain Score 6-10/10 Last Admin: 01/10/20 21:43 Dose: 10 mg Documented by: Potassium Chloride (K-Dur) 20 meq PO DAILY COUNT INCLUDES THE [facility] Sodium Chloride () 10 - 40 ml IV UD PRN PRN Reason: SALINE FLUSH Last Admin: 01/11/20 06:06 Dose: 10 ml Documented by: Assessment/Plan All Active Problems (Last Reviewed 01/10/20 @ 19:[address] Howard Summers, DO) Intertrochanteric fracture of right hip (Acute) Her diagnosis and treatment options regarding her right hip displaced intertrochanteric fracture discussed with her at length. She would like to proceed with right hip surgery. We will plan open reduction internal fixation. Risk of surgery including but not limited to from operative or postoperative complications. Risk of anesthetic complications such as heart attacks, strokes, seizures, or . Risk of infections. Risk of damage to nerves arteries tendons. Risk of inadvertent fractures or dislocations. Risk of bone or wound healing complications. Possibility of nonunion malunion pain stiffness weakness. Possible need for further surgery such as hardware removal. Risk of DVT PE and other potential complications could lead to or disability explained. No guarantees were stated or implied. All of their questions were answered. Appropriate informed consent was obtained and signed for surgical intervention. Her poorly controlled diabetes discussed with her at length. I recommend with the help of her primary care physician she obtain better control of this because of the risks of infection, bone healing problems, etc.
[2020-01-11 11:25] LABS: Bedside Glucose 153 mg/dL (70-110)
[2020-01-11] MEDS: Cefazolin 1 GM/50 ML BAG IV (11:26)
--- NOTE | 2020-01-11 11:45 | RAD_ITS ---
STUDY: X-RAY - PELVIS AND RIGHT HIP REASON FOR EXAM: Female, 64 years old. RIGHT HIP NAILING TECHNIQUE: 6 views of the pelvis and hip. COMPARISON: None. FINDINGS: Views were obtained intraoperatively during internal fixation of the right femur. Intramedullary marisabel and compression screw are in place. Intertrochanteric fracture is identified. RAD/Hip Min 2 Views (Portable) IMPRESSION: Fluoroscopic spot views for hardware localization. Electronically Signed: Rosario Perry MD at 16:04 EDT Tel , Service support ,
--- NOTE | 2020-01-11 13:17 | PCM.OP.PRO ---
Problem List (1) Intertrochanteric fracture of right hip Status: Acute (2) Type 2 diabetes mellitus Status: Chronic (3) Hypothyroidism Status: Chronic (4) Vision problems Status: Chronic (5) Thyroid disease Status: Chronic (6) High blood pressure Status: Chronic (7) Hearing problem Status: Chronic (8) Diabetes Status: Chronic (9) Carpal tunnel syndrome Status: Chronic (10) Breast cancer Status: Chronic (11) Asthma Status: Chronic (12) Arthritis Status: Chronic
--- NOTE | 2020-01-11 13:22 | PCM.OP.PRO ---
Problem List (1) Intertrochanteric fracture of right hip Status: Acute (2) Type 2 diabetes mellitus Status: Chronic (3) Hypothyroidism Status: Chronic (4) Vision problems Status: Chronic (5) Thyroid disease Status: Chronic (6) High blood pressure Status: Chronic (7) Hearing problem Status: Chronic (8) Diabetes Status: Chronic (9) Carpal tunnel syndrome Status: Chronic (10) Breast cancer Status: Chronic (11) Asthma Status: Chronic (12) Arthritis Status: Chronic Procedure Report Date of Procedure: 01/11/20 Preoperative diagnosis: Right hip displaced unstable intertrochanteric fracture Postoperative diagnosis: Same Title of operation:RIGHT hip open reduction internal fixation, intramedullary nail fixation, locked Surgeon: Dr. El Maurer Telecommunications Network Engineer: Marielena Harris PA-C Anesthesia: General Medications: Ancef Complications none EBL: 50 Indications for surgery: Patient is an 64-year-old fermale sustained a hip fracture yesterday. Patient explained diagnosis and treatment options. Patient evaluated by the medical services. Patient did wish to have surgery. Appropriate informed consent obtained and signed. Findings: Patient had a displaced unstable intertrochanteric hip fracture. They underwent standard reduction, internal fixation using a Dean short gamma nail. X-rays taken throughout. central supply assistant, physician res habilitation assistant, was utilized throughout the entire procedure. They were vital to the procedure from beginning to end. They help with patient transfer, patient padding and positioning, fracture reduction, maintenance of fracture reduction, internal fixation of implants, wound closure, bandage application, patient transfer. Without assistant professor of life sciences, surgical time would have been significantly increased and surgical outcome could have been less optimal. Procedure: Patient was taken to the operating room. Placed under a general anesthetic and transferred to the operating table with the help of the res habilitation assistant. With the help of the res habilitation assistant patient was prepped and padded for surgery. Operative side foot was well-padded and placed in the traction boot. Uninjured lower extremity was abducted and flexed out of harms way. NAVEEN hose and SCDs utilized. Fluoroscopy was brought in. With the help of the res habilitation assistant and manipulation of the limb, reduction was nicely obtained as verified under AP lateral and oblique fluoroscopic images. . Operative hip/thigh was prepped padded draped in usual orthopedic sterile fashion for the procedure. Longitudinal incision was made just proximal to the greater trochanter. Taken through skin and subcutaneous tissue. Sharp awl was placed on the tip of the greater trochanter. Position verified under AP and lateral fluoroscopic images. This was then taken down inside the bone. Slightly bent ball-tipped guide marisabel was then placed from the tip of the greater trochanter into the intra-medullary canal of the femur. Its position verified radiographically. Reamer was then done over the tip of this with the help of the res habilitation assistant holding the soft tissue protector appropriately. We reamed distally with the long reamers to 12.5 mm in diameter. once reaming was done we placed the short 125? angle device over the guidepin. This was easily introduced. Guide marisabel removed. Outrigger device was utilized to position a guidepin from the lateral cortex of the femur across the fracture site and into the femoral head in a good position centrally, as noted on AP lateral and oblique fluoroscopic images. This was measured. Appropriate reaming done. Appreciate length lag screw was placed from the lateral cortex of the femur into the femoral head. Noted the femoral head and neck were rotating with screw placement. A secondary guidepin was placed anteriorly to control the femoral head. Screw was further introduced without further displacement. A small amount of the screw was noted to be protruding laterally as planned. No cartilage penetration of the femoral head noted on any x-ray. Accessory guidepin was removed. fracture was then compressed with the outrigger device. Proximal cap screw was placed by the res habilitation assistant seated down completely, confirmed, and then loosened one fourth turn. We then used the outrigger device to place distal cross locking screw under standard technique. This was confirmed to be of adequate length in good position on AP and lateral images. Outrigger device removed. Final set of AP and lateral proximal x-rays taken and saved. Incisions thoroughly irrigated. Closing by the res habilitation assistant with deep 0 Vicryl, mid layer 0 Vicryl, inverted 2-0 Vicryl, skin teddy. Puncture wounds closed with inverted 2-0 Vicryl and teddy. Xeroform 4 x 4's ABD tape applied. Patient was awoken from their anesthetic, transferred back to their own bed with the help of the res habilitation assistant and into recovery room in satisfactory condition. Patient will continue to be admitted to the hospital under the hospitalist service. This note was generated with [employer] software. It may contain incorrect words, spelling, and punctuation that were not noted in checking the note before signing.
[2020-01-11 13:41] LABS: Bedside Glucose 162 mg/dL (70-110)
--- NOTE | 2020-01-11 15:04 | PN_ITS ---
<Vikash Figueroa - Last Filed: 01/11/20 15:04> Patient Problems: Active and Suspected Problems (Last Reviewed 01/10/20 @ 19:[address] Howard Summers DO) Intertrochanteric fracture of right hip (Acute) Reason for Visit: right intertroch fx Subjective: Pt seen and examined post op. Doing well. Some residual right hip pain. Pt appears comfortable at rest NAD. No fever/chills/SOB/cough/nausea. Still somewhat lethergic post op. Vitals/I&O's: Vital Signs Temp Pulse Resp BP Pulse Ox 98.9 F 102 H 18 134/89 H 94 01/11/20 14:30 01/11/20 14:30 01/11/20 14:30 01/11/20 14:30 01/11/20 14:30 Oxygen Flow Rate (L/min) 3 Oxygen Delivery Method Nasal Cannula Weight: 120 lb 9.486 oz Body Mass Index (BMI) 23.5 Finger Stick Blood Glucose 181 Intake and Output for Last 24 Hours 01/09/20 01/10/20 01/11/20 23:59 23:59 23:59 Intake Total 450 / 450 2339 / 2339 Output Total 340 / 340 750 / 750 Balance 110 / 110 1589 / 1589 General: Alert, Oriented x3, Cooperative HEENT: Atraumatic, PERRLA, EOMI, Normocephalic Neck: Supple, No JVD, Negative Carotid Bruits Lungs: Clear to auscultation, Normal air movement Cardiovascular: Regular rate, No murmurs Abdomen: Bowel Sounds Present, Soft, Non Tender Extremities: No edema, Capillary Refill Less than 3 Seconds Skin: No rashes, No breakdown Musculoskeletal: - - post op right hip Neurological: Cranial nerves II-XII grossly intact Psych/Mental Status: Normal Affect, Appropriate, Alert and oriented to time, place, person, mood and affect Laboratory Results 01/10/20 17:44: WBC 12.7 H, RBC 5.36, Hgb 15.2 H, Hct 46.9, MCV 87.5, MCH 28.4, MCHC 32.4, RDW Std Deviation 43.4, RDW Coeff of Chad 13.6, Plt Count 341, MPV 10.9, Immature Gran % (Auto) 0.900, Neut % (Auto) 63.0, Lymph % (Auto) 28.7, [place] % (Auto) 5.8, Eos % (Auto) 1.0, Baso % (Auto) 0.6, Absolute Neuts (auto) 8.0 H, Absolute Lymphs (auto) 3.65, Nucleated RBC % 0 01/10/20 17:44: PT 12.5, INR 1.0, APTT 31.0 01/10/20 17:44: Sodium 138, Potassium 3.1 L, Chloride 102, Carbon Dioxide 31.0, Anion Gap 5, BUN 18, Creatinine 1.13 H, Estim Creat Clear Calc 35.65, Est GFR (MDRD) Af Amer 62, Est GFR (MDRD) Non-Af 51 L, BUN/Creatinine Ratio 15.9, Glucose 316 H, Calcium 9.5 01/10/20 17:44: Vitamin D 25-Hydroxy 17.9 01/10/20 21:52: POC Glucose 278 H 01/11/20 05:20: WBC 15.6 H, RBC 4.84, Hgb 13.6, Hct 42.5, MCV 87.8, MCH 28.1, MCHC 32.0, RDW Std Deviation 43.8, RDW Coeff of Chad 13.6, Plt Count 312, MPV 10.9, Immature Gran % (Auto) 0.600, Neut % (Auto) 72.0 H, Lymph % (Auto) 21.2, [place] % (Auto) 5.2, Eos % (Auto) 0.5, Baso % (Auto) 0.5, Absolute Neuts (auto) 11.2 H, Absolute Lymphs (auto) 3.30, Nucleated RBC % 0 01/11/20 05:20: Sodium 140, Potassium 3.4 L, Chloride 106, Carbon Dioxide 29.0, Anion Gap 5, BUN 11, Creatinine 0.78, Estim Creat Clear Calc 51.65, Est GFR (MDRD) Af Amer 95, Est GFR (MDRD) Non-Af 79, BUN/Creatinine Ratio 14.1, Glucose 149 H, Calcium 8.5, Magnesium 1.4 L, TSH 0.87 01/11/20 05:20: Hemoglobin A1c 10.8 H 01/11/20 05:20: Blood Type A POSITIVE, Antibody Screen NEGATIVE 01/11/20 06:53: POC Glucose 153 H 01/11/20 09:24: POC Glucose 139 H 01/11/20 13:37: POC Glucose 162 H Current Medications Acetaminophen (Tylenol) 650 mg PO Q6H PRN PRN PRN Reason: Pain Score 1-10/Temp > 100.7 F Amlodipine Besylate (Norvasc) 5 mg PO DAILY COUNTS INCLUDE 234 BEDS AT THE [facility] Last Admin: 01/11/20 09:18 Dose: 5 mg Documented by: Anastrozole (Arimidex) 1 mg PO DAILY COUNTS INCLUDE 234 BEDS AT THE [facility] Last Admin: 01/11/20 14:08 Dose: Not Given Documented by: Dextrose (D50w Syringe) 0 gm IV X1 PRN; Protocol PRN Reason: Hypoglycemia Glucagon () 1 mg IM .X1 PRN PRN Reason: Hypoglycemia Hydrochlorothiazide (Hctz) 25 mg PO DAILY COUNTS INCLUDE 234 BEDS AT THE [facility] Last Admin: 01/11/20 14:09 Dose: Not Given Documented by: Sodium Chloride () 250 mls @ 15 mls/hr IV .[id number] PRN PRN Reason: Saline Flush Sodium Chloride () 250 mls @ 15 mls/hr IV .[id number] PRN PRN Reason: Additional IVPB Infusion Lactated Ringer's () 1,000 mls @ 100 mls/hr IV .Q10H COUNTS INCLUDE 234 BEDS AT THE [facility] Last Admin: 01/11/20 13:25 Dose: 100 mls/hr Documented by: Insulin Glargine (Lantus (Bkc)) 10 units SC DAILY COUNTS INCLUDE 234 BEDS AT THE [facility] Last Admin: 01/11/20 14:09 Dose: Not Given Documented by: Insulin Human Lispro (Humalog Kwikpen (Bk)) 0 unit SC TIDAC COUNTS INCLUDE 234 BEDS AT THE [facility]; Protocol Last Admin: 01/11/20 14:09 Dose: Not Given Documented by: Levothyroxine Sodium (Synthroid) 125 mcg PO DAILY@0600 COUNTS INCLUDE 234 BEDS AT THE [facility] Last Admin: 01/11/20 09:19 Dose: 125 mcg Documented by: Lisinopril (Zestril) 10 mg PO BID COUNTS INCLUDE 234 BEDS AT THE [facility] Last Admin: 01/11/20 09:17 Dose: 10 mg Documented by: Melatonin (Melatonin) 3 mg PO QHS PRN PRN PRN Reason: INSOMNIA Morphine Sulfate () 2 mg IV Q3H PRN PRN PRN Reason: breakthrough pain Last Admin: 01/11/20 08:16 Dose: 2 mg Documented by: Oxycodone HCl (Oxyir) 5 mg PO Q4H PRN PRN PRN Reason: Pain Score 4-5/10 Oxycodone HCl (Oxyir) 10 mg PO Q4H PRN PRN PRN Reason: Pain Score 6-10/10 Last Admin: 01/10/20 21:43 Dose: 10 mg Documented by: Potassium Chloride (K-Dur) 20 meq PO DAILY VANNESSA Last Admin: 01/11/20 14:09 Dose: Not Given Documented by: Sodium Chloride () 10 - 40 ml IV UD PRN PRN Reason: SALINE FLUSH Last Admin: 01/11/20 06:06 Dose: 10 ml Documented by: STROKE Vital Signs/Narrative: Vital Signs Temp Pulse Resp BP Pulse Ox 01/11/20 14:30 98.9 F 102 H 18 134/89 H 94 01/11/20 14:15 99 14 134/89 H 93 01/11/20 14:10 99.2 F H 96 01/11/20 14:00 101 H 14 138/83 H 93 01/11/20 13:45 106 H 14 156/85 H 92 01/11/20 13:30 115 H 16 167/98 H 92 01/11/20 13:24 102.0 F H 115 H 9 L 177/95 H 92 Medical Necessity - Tobacco Use Smoking Status: Heavy Smoker (>10/day) Tobacco Use: Cigarettes Assessment/Plan All Active Problems (Last Reviewed 01/10/20 @ 19:[address] Howard Summers, DO) Intertrochanteric fracture of right hip (Acute) 1. Right intertroch fx - post op D#0 (open reduction internal fixation, inramedullary nail) pt of Dr. Maurer. doing well post op. Had periop cefazolin 2. Fever/leukocytosis/tachycardia - cxr normal. no specific complaints. Fever 102 today. Periop cefazolin. Check UA. 3. Hypokalemia/hypomag - replete, check in AM, check phos. Hold HCTZ. 4. DMt2 - A1C 10.8. will attempt to optimize while here. Continue lantus, hold metformin, continue SSI. 5. hypothyroidism - synthroid. TSH normal. 6. HTN - norvasc. 7. hx Breast cancer - on anastrozole. 8. Vitamin D deficiency - vit d 17.9, start PO replacement. DVT ppx: per ortho. DC planning: PTOT evals This patient was seen by Vikash Figueroa PA-C under the supervision of Dr. Welch. <Bill Welch - Last Filed: 01/11/20 15:38> Reason for Visit: Right intertrochanteric fracture with varus angulation. Objective: Patient was seen and examined in the morning before surgery and then afternoon after surgery. In the morning she was at normal baseline except right hip pain and debility. Right hip abducted and externally rotated. After surgery, she is groggy, sleepy but she is oriented x3. No nausea or vomiting. Labs reviewed. Vitals/I&O's: Vital Signs Temp Pulse Resp BP Pulse Ox 98.7 F 98 15 141/69 H 92 01/11/20 14:58 01/11/20 15:05 01/11/20 14:58 01/11/20 14:58 01/11/20 14:58 Oxygen Flow Rate (L/min) 2.5 Oxygen Delivery Method Room Air Weight: 120 lb 9.486 oz Body Mass Index (BMI) 23.5 Finger Stick Blood Glucose 181 Intake and Output for Last 24 Hours 01/09/20 01/10/20 01/11/20 23:59 23:59 23:59 Intake Total 450 / 450 2339 / 2339 Output Total 340 / 340 750 / 750 Balance 110 / 110 1589 / 1589 General: Oriented x3, Cooperative, Lethargic HEENT: Atraumatic, PERRLA, EOMI, Normocephalic Neck: Supple, No JVD, Negative Carotid Bruits Lungs: Clear to auscultation, No rhonchi, No wheeze, No rales, Diminished - Diminished in bilateral lung emesis Cardiovascular: Regular rate, No murmurs Abdomen: Bowel Sounds Present, Soft, Non Tender, Non-Distended Extremities: No edema, Capillary Refill Less than 3 Seconds Skin: No rashes, No breakdown Musculoskeletal: Arthritic Changes, - - post op right hip There is tenderness in the right hip or groin region and right hip with external rate. After surgery, surgical dressing is dry. Neurological: Cranial nerves II-XII grossly intact, Neuro grossly intact Psych/Mental Status: Normal Affect, Appropriate Laboratory Results 01/10/20 17:44: WBC 12.7 H, RBC 5.36, Hgb 15.2 H, Hct 46.9, MCV 87.5, MCH 28.4, MCHC 32.4, RDW Std Deviation 43.4, RDW Coeff of Chad 13.6, Plt Count 341, MPV 10.9, Immature Gran % (Auto) 0.900, Neut % (Auto) 63.0, Lymph % (Auto) 28.7, [place] % (Auto) 5.8, Eos % (Auto) 1.0, Baso % (Auto) 0.6, Absolute Neuts (auto) 8.0 H, Absolute Lymphs (auto) 3.65, Nucleated RBC % 0 01/10/20 17:44: PT 12.5, INR 1.0, APTT 31.0 01/10/20 17:44: Sodium 138, Potassium 3.1 L, Chloride 102, Carbon Dioxide 31.0, Anion Gap 5, BUN 18, Creatinine 1.13 H, Estim Creat Clear Calc 35.65, Est GFR (MDRD) Af Amer 62, Est GFR (MDRD) Non-Af 51 L, BUN/Creatinine Ratio 15.9, Glucose 316 H, Calcium 9.5 01/10/20 17:44: Vitamin D 25-Hydroxy 17.9 01/10/20 21:52: POC Glucose 278 H 01/11/20 05:20: WBC 15.6 H, RBC 4.84, Hgb 13.6, Hct 42.5, MCV 87.8, MCH 28.1, MCHC 32.0, RDW Std Deviation 43.8, RDW Coeff of Chad 13.6, Plt Count 312, MPV 10.9, Immature Gran % (Auto) 0.600, Neut % (Auto) 72.0 H, Lymph % (Auto) 21.2, [place] % (Auto) 5.2, Eos % (Auto) 0.5, Baso % (Auto) 0.5, Absolute Neuts (auto) 11.2 H, Absolute Lymphs (auto) 3.30, Nucleated RBC % 0 01/11/20 05:20: Sodium 140, Potassium 3.4 L, Chloride 106, Carbon Dioxide 29.0, Anion Gap 5, BUN 11, Creatinine 0.78, Estim Creat Clear Calc 51.65, Est GFR (MDRD) Af Amer 95, Est GFR (MDRD) Non-Af 79, BUN/Creatinine Ratio 14.1, Glucose 149 H, Calcium 8.5, Magnesium 1.4 L, TSH 0.87 01/11/20 05:20: Hemoglobin A1c 10.8 H 01/11/20 05:20: Blood Type A POSITIVE, Antibody Screen NEGATIVE 01/11/20 06:53: POC Glucose 153 H 01/11/20 09:24: POC Glucose 139 H 01/11/20 13:37: POC Glucose 162 H Current Medications Acetaminophen (Tylenol) 650 mg PO Q6H PRN PRN PRN Reason: Pain Score 1-10/Temp > 100.7 F Amlodipine Besylate (Norvasc) 5 mg PO DAILY COUNTS INCLUDE 234 BEDS AT [facility] Last Admin: 01/11/20 09:18 Dose: 5 mg Documented by: Anastrozole (Arimidex) 1 mg PO DAILY COUNTS INCLUDE 234 BEDS AT [facility] Last Admin: 01/11/20 14:08 Dose: Not Given Documented by: Cholecalciferol (Vitamin D (25mcg)) 2,000 unit PO DAILY COUNTS INCLUDE 234 BEDS AT THE [facility] Dextrose (D50w Syringe) 0 gm IV X1 PRN; Protocol PRN Reason: Hypoglycemia Glucagon () 1 mg IM .X1 PRN PRN Reason: Hypoglycemia Sodium Chloride () 250 mls @ 15 mls/hr IV .[id number] PRN PRN Reason: Saline Flush Sodium Chloride () 250 mls @ 15 mls/hr IV .[id number] PRN PRN Reason: Additional IVPB Infusion Lactated Ringer's () 1,000 mls @ 100 mls/hr IV .Q10H COUNTS INCLUDE 234 BEDS AT [facility] Last Admin: 01/11/20 13:25 Dose: 100 mls/hr Documented by: Insulin Glargine (Lantus ([facility])) 10 units SC DAILY COUNTS INCLUDE 234 BEDS AT [facility] Last Admin: 01/11/20 14:09 Dose: Not Given Documented by: Insulin Human Lispro (Humalog Kwikpen ([facility])) 0 unit SC TIDAC COUNTS INCLUDE 234 BEDS AT [facility]; Protocol Last Admin: 01/11/20 14:09 Dose: Not Given Documented by: Levothyroxine Sodium (Synthroid) 125 mcg PO DAILY@0600 COUNTS INCLUDE 234 BEDS AT [facility] Last Admin: 01/11/20 09:19 Dose: 125 mcg Documented by: Lisinopril (Zestril) 10 mg PO BID COUNTS INCLUDE 234 BEDS AT [facility] Last Admin: 01/11/20 09:17 Dose: 10 mg Documented by: Melatonin (Melatonin) 3 mg PO QHS PRN PRN PRN Reason: INSOMNIA Morphine Sulfate () 2 mg IV Q3H PRN PRN PRN Reason: breakthrough pain Last Admin: 01/11/20 08:16 Dose: 2 mg Documented by: Oxycodone HCl (Oxyir) 5 mg PO Q4H PRN PRN PRN Reason: Pain Score 4-5/10 Oxycodone HCl (Oxyir) 10 mg PO Q4H PRN PRN PRN Reason: Pain Score 6-10/10 Last Admin: 01/11/20 15:14 Dose: 10 mg Documented by: Potassium Chloride (K-Dur) 20 meq PO DAILY VANNESSA Last Admin: 01/11/20 14:09 Dose: Not Given Documented by: Sodium Chloride () 10 - 40 ml IV UD PRN PRN Reason: SALINE FLUSH Last Admin: 01/11/20 06:06 Dose: 10 ml Documented by: STROKE Vital Signs/Narrative: Vital Signs Temp Pulse Resp BP Pulse Ox 01/11/20 15:05 98 01/11/20 14:58 98.7 F 101 H 15 141/69 H 92 01/11/20 14:30 98.9 F 102 H 18 134/89 H 94 01/11/20 14:15 99 14 134/89 H 93 01/11/20 14:10 99.2 F H 96 01/11/20 14:00 101 H 14 138/83 H 93 01/11/20 13:45 106 H 14 156/85 H 92 01/11/20 13:30 115 H 16 167/98 H 92 01/11/20 13:24 102.0 F H 115 H 9 L 177/95 H 92 Assessment/Plan This patient was seen in conjunction with Vikash MAHARAJ. I have independently interviewed and examined the patient and reviewed pertinent history, examination findings, laboratory and plan of management. I have reviewed the note and agree with the documented findings with the few additional points. In brief, patient is 64-year-old female is being admitted after she got dizzy and fell down which resulted into right intertrochanteric fracture with moderate varus angulation. Shoulder x-ray was unremarkable. Dr. Maurer, orthopedic surgeon was consulted and patient had right ORIF with intramedullary nail fixation done on 01/11/2020. In the afternoon, patient had fever 102.0 Fahrenheit, tachycardia sinus tachycardia 115/min, blood pressure 177/95 respiratory rate 9 and pulse ox 92% on 3 to of oxygen. Timing coincides with Intra-Op probably effect of anesthetic medications. UA with reflex urine culture ordered. Chest x-ray reported normal. Patient has leukocytosis 12.7 thousand which increased to 50.6 thousand. Mild hypokalemia and hypomagnesemia; electrolytes replaced. Monitor intake and output, incentive spirometry, H&H and electrolytes. If patient further spikes temperature, will need blood culture x2 and repeat chest x-ray and empirically start of antibiotics. Diabetes mellitus type 2: Accu-Chek before meals and at bedtime. Blood sugars are controlled. Hypertension: Blood pressure is controlled on lisinopril 10 mg twice daily. Patient other comorbidities include COPD, hypothyroidism on levothyroxine, breast cancer which is in remission: Multiple comorbidities complicates the present care and expect difficult and delay recovery CODE STATUS: DNR CC arrest with no intubation. I have discussed my assessment with Vikash MAHARAJ and orders have been reviewed. Total time of the visit including total time spent in counseling or coordination of care, (more than 50% of the total time, spent in obtaining medical information from nurses and other ancillary care providers), discussion with solar sales consultant, review of labs and imaging is 35 minutes Laboratory Results 01/10/20 17:44: WBC 12.7 H, RBC 5.36, Hgb 15.2 H, Hct 46.9, MCV 87.5, MCH 28.4, MCHC 32.4, RDW Std Deviation 43.4, RDW Coeff of Chad 13.6, Plt Count 341, MPV 10.9, Immature Gran % (Auto) 0.900, Neut % (Auto) 63.0, Lymph % (Auto) 28.7, [place] % (Auto) 5.8, Eos % (Auto) 1.0, Baso % (Auto) 0.6, Absolute Neuts (auto) 8.0 H, Absolute Lymphs (auto) 3.65, Nucleated RBC % 0 01/10/20 17:44: PT 12.5, INR 1.0, APTT 31.0 01/10/20 17:44: Sodium 138, Potassium 3.1 L, Chloride 102, Carbon Dioxide 31.0, Anion Gap 5, BUN 18, Creatinine 1.13 H, Estim Creat Clear Calc 35.65, Est GFR (M DRD) Af Amer 62, Est GFR (MDRD) Non-Af 51 L, BUN/Creatinine Ratio 15.9, Glucose 316 H, Calcium 9.5 01/10/20 17:44: Vitamin D 25-Hydroxy 17.9 01/10/20 21:52: POC Glucose 278 H 01/11/20 05:20: WBC 15.6 H, RBC 4.84, Hgb 13.6, Hct 42.5, MCV 87.8, MCH 28.1, MCHC 32.0, RDW Std Deviation 43.8, RDW Coeff of Chad 13.6, Plt Count 312, MPV 10.9, Immature Gran % (Auto) 0.600, Neut % (Auto) 72.0 H, Lymph % (Auto) 21.2, [place] % (Auto) 5.2, Eos % (Auto) 0.5, Baso % (Auto) 0.5, Absolute Neuts (auto) 11.2 H, Absolute Lymphs (auto) 3.30, Nucleated RBC % 0 01/11/20 05:20: Sodium 140, Potassium 3.4 L, Chloride 106, Carbon Dioxide 29.0, Anion Gap 5, BUN 11, Creatinine 0.78, Estim Creat Clear Calc 51.65, Est GFR (MDRD) Af Amer 95, Est GFR (MDRD) Non-Af 79, BUN/Creatinine Ratio 14.1, Glucose 149 H, Calcium 8.5, Magnesium 1.4 L, TSH 0.87 01/11/20 05:20: Hemoglobin A1c 10.8 H 01/11/20 05:20: Blood Type A POSITIVE, Antibody Screen NEGATIVE 01/11/20 06:53: POC Glucose 153 H 01/11/20 09:24: POC Glucose 139 H 01/11/20 13:37: POC Glucose 162 H Inpatient E&M: 03163 Subs Hosp L3
[2020-01-11] MEDS: oxyCODONE 5 MG Tablet 10 MG PO ×2 (15:14→22:28)
--- NOTE | 2020-01-11 16:29 | CHAPLAIN ---
two attempts made to visit but patient and bed were out of room
[2020-01-11 16:36] LABS: Bacteria 0 SEEN /hpf (None Seen); Mucous, Urine 0 SEEN /hpf (<or=2+); Squamous Epithelial Cells - UA 0 SEEN /hpf (5-10)
[2020-01-11] MEDS: Acetaminophen 325 MG Tablet 650 MG PO (16:38)
[2020-01-11] MEDS: Insulin Lispro 100 UNIT/ML INSULN.PEN SC (16:41)
[2020-01-11 16:43] LABS: Color, Urine Yellow (Yellow); Glucose, Dipstick 50 mg/dl (Normal); Ketone-Dipstick 15 mg/dl (Negative); Leukocyte Esterase-Dipstick 100 /ul (Negative); Nitrite-Dipstick Negative (Negative); Occult Blood-Urine 150 /ul (Negative); Protein-Dipstick 100 mg/dl (Negative); Specific Gravity, Urine 1.025 (1.002-1.030); Urine Bilirubin Dipstick Negative (Negative); Urine Clarity Clear (Clear); Urine Urobilinogen Normal (Normal)
[2020-01-11 16:54] LABS: White Blood Cells 5-10 SEEN /hpf (0-5)
[2020-01-11 16:55] LABS: Red Blood Cells-Urine 0-5 SEEN /hpf (0-5)
[2020-01-11 18:18] LABS: Hematocrit 40.8 % (37-47)
[2020-01-11 19:16] LABS: Bedside Glucose 194 mg/dL (70-110)
--- NOTE | 2020-01-11 19:53 | NURSING ---
Pt's called in this evening. Updated on pt's status.
[2020-01-11 22:31] LABS: Bedside Glucose 197 mg/dL (70-110)
[2020-01-12] VITALS (7 sets, daily range): BP systolic 124–156; BP diastolic 66–94; PULSE 86–101; RESP 16–20; TEMP 36.8–37; O2SAT 87–97; BMI 23.6
[2020-01-12] MEDS: 0.9% Normal Saline 1,000 ML 999 ML IV (00:31)
[2020-01-12] MEDS: Lactated Ringers 1,000 ML 100 ML IV ×2 (05:57→16:06)
[2020-01-12 06:12] LABS: Absolute Lymphocyte Count 2.37 X10^3/uL (0.83-4.51); Absolute Neutrophil Count 14.2 X10^3/uL (2.0-7.7); Anion Gap 6 (5-15); BUN 13 mg/dL (7-18); BUN/Creat Ratio 15.3 RATIO (10-20); Basophil# 0.08 X10^3/uL; Basophil% 0.5 % (0-1); Calcium,Total 8.1 mg/dL (8.5-10.1); Chloride 108 mmol/L (98-107); Creatinine, Serum 0.85 mg/dL (0.55-1.02); EST Glomerular Filtration Rate 71 mL/min (>60); Eosinophil# 0.02 X10^3/uL; Eosinophils% 0.1 % (0-5); Est Glom Filt Rate - Afr Amer 86 mL/min (>60); Glucose 221 mg/dL (74-106); Hematocrit 33.9 % (37-47); Hemoglobin 10.5 g/dL (12.0-15.0); Lymphocyte # 2.37 X10^3/ul (4.0); Lymphocyte % 13.4 % (19-41); Magnesium 1.6 mg/dL (1.6-2.6); Mean Corpuscular Hgb 27.9 pg (27.0-32.0); Mean Corpuscular Volume 89.9 fL (81-99); Mean Platelet Vol. 11.2 fl (6.2-12.0); Monocyte# 0.88 X10^3/uL; NRBC Flagged by Analyzer 0 % (0-5); Neutrophil # 14.21 X10^3/uL (2.7-7.7); Neutrophil % 80.1 % (47-70); Phosphorus 3.5 mg/dL (2.5-4.9); Platelet Count 249 K/mm3 (150-450); Potassium 3.8 mmol/L (3.5-5.1); RBC Distribution Width CV 13.7 % (11.6-14.6); RBC Distribution Width SD 45.6 fl (35.1-43.9); Red Blood Count 3.77 M/mm3 (4.2-5.4); Sodium Level 138 mmol/L (136-145); White Blood Count 17.7 K/mm3 (4.4-11.0)
[2020-01-12] MEDS: Insulin Lispro 100 UNIT/ML INSULN.PEN SC ×3 (06:42→16:31)
[2020-01-12] MEDS: oxyCODONE 5 MG Tablet 10 MG PO (06:49)
[2020-01-12 06:51] LABS: Bedside Glucose 226 mg/dL (70-110)
--- NOTE | 2020-01-12 08:35 | PN.ORTHO_ITS ---
Patient Problems: Active and Suspected Problems (Last Reviewed 01/10/20 @ 19:[address] Howard Summers, DO) Intertrochanteric fracture of right hip (Acute) Subjective: The patient was sitting in bedside chair upon examination. Patient denies any chest pain, shortness of breath, dizziness, lightheadedness, nausea or vomiting, or calf pain. Pain is controlled on medications. Patient does report pain into her right hip but medications have been helpful. No adverse overnight events. Patient has required nasal oxygen which is gone from 4 L to 3 L. Patient has poorly controlled diabetic with recent A1c 10.8. Does have history of vertigo. Objective: Vital signs stable and afebrile. Patient is able to plantarflex and dorsiflex actively. Sensation is intact to light touch to saphenous, sural, superficial and deep peroneal, and tibial distribution. Dressing is clean dry and intact. Thigh is soft and supple Negative Homans bilaterally, negative signs and symptoms of DVT. - Physical Exam Vitals/I&O's: Vital Signs Temp Pulse Resp BP Pulse Ox 98.2 F 88 16 140/71 H 97 01/12/20 04:41 01/12/20 04:41 01/12/20 04:41 01/12/20 04:41 01/12/20 04:41 Oxygen Flow Rate (L/min) 3 Oxygen Delivery Method Nasal Cannula Weight: 54.7 kg Body Mass Index (BMI) 23.5 Finger Stick Blood Glucose 181 Intake and Output for Last 24 Hours 01/10/20 01/11/20 01/12/20 23:59 23:59 23:59 Intake Total 450 / 450 3569 / 3669 2143.33 / 2143.33 Output Total 340 / 340 930 / 1030 275 / 275 Balance 110 / 110 2639 / 2639 1868.33 / 1868.33 General: Alert, Oriented x3, Cooperative, No apparent distress Laboratory Results 01/11/20 06:53: POC Glucose 153 H 01/11/20 09:24: POC Glucose 139 H 01/11/20 13:37: POC Glucose 162 H 01/11/20 15:35: Urine Color Yellow, Urine Clarity Clear, Urine pH 6.0, Ur Specific [place] 1.025, Urine Protein 100 H, Urine Glucose (UA) 50 H, Urine Ketones 15 H, Urine Occult Blood 150 H, Urine Nitrite Negative, Urine Bilirubin Negative, Urine Urobilinogen Normal, Ur Leukocyte Esterase 100 H, Urine RBC 0-5 SEEN, Urine WBC 5-10 SEEN, Ur Squamous Epith Cells 0 SEEN, Urine Bacteria 0 SEEN, Urine Mucus 0 SEEN 01/11/20 16:32: POC Glucose 194 H 01/11/20 17:54: Hgb 13.0, Hct 40.8 01/11/20 22:24: POC Glucose 197 H 01/12/20 05:32: WBC 17.7 H, RBC 3.77 L, Hgb 10.5 L, Hct 33.9 L, MCV 89.9, MCH 27.9, MCHC 31.0 L, RDW Std Deviation 45.6 H, RDW Coeff of Chad 13.7, Plt Count 249, MPV 11.2, Immature Gran % (Auto) 0.900, Neut % (Auto) 80.1 H, Lymph % (Auto) 13.4 L, [place] % (Auto) 5.0, Eos % (Auto) 0.1, Baso % (Auto) 0.5, Absolute Neuts (auto) 14.2 H, Absolute Lymphs (auto) 2.37, Nucleated RBC % 0 01/12/20 05:32: Sodium 138, Potassium 3.8, Chloride 108 H, Carbon Dioxide 24.0, Anion Gap 6, BUN 13, Creatinine 0.85, Estim Creat Clear Calc 47.40, Est GFR (MDRD) Af Amer 86, Est GFR (MDRD) Non-Af 71, BUN/Creatinine Ratio 15.3, Glucose 221 H, Calcium 8.1 L, Phosphorus 3.5, Magnesium 1.6 01/12/20 06:39: POC Glucose 226 H Current Medications Acetaminophen (Tylenol) 650 mg PO Q6H PRN PRN PRN Reason: Pain Score 1-10/Temp > 100.7 F Last Admin: 01/11/20 16:38 Dose: 650 mg Documented by: Amlodipine Besylate (Norvasc) 5 mg PO DAILY [facility] Last Admin: 01/11/20 09:18 Dose: 5 mg Documented by: Anastrozole (Arimidex) 1 mg PO DAILY [facility] Last Admin: 01/11/20 14:08 Dose: Not Given Documented by: Cholecalciferol (Vitamin D (25mcg)) 2,000 unit PO DAILY [facility] Dextrose (D50w Syringe) 0 gm IV X1 PRN; Protocol PRN Reason: Hypoglycemia Glucagon () 1 mg IM .X1 PRN PRN Reason: Hypoglycemia Sodium Chloride () 250 mls @ 15 mls/hr IV .[id number] PRN PRN Reason: Saline Flush Sodium Chloride () 250 mls @ 15 mls/hr IV .[id number] PRN PRN Reason: Additional IVPB Infusion Lactated Ringer's () 1,000 mls @ 100 mls/hr IV .Q10H [facility] Last Admin: 01/12/20 05:57 Dose: 100 mls/hr Documented by: Insulin Glargine (Lantus ([facility])) 10 units SC DAILY [facility] Last Admin: 01/11/20 14:09 Dose: Not Given Documented by: Insulin Human Lispro (Humalog Kwikpen ([facility])) 0 unit SC TIDAC [facility]; Protocol Last Admin: 01/12/20 06:42 Dose: 2 units Documented by: Levothyroxine Sodium (Synthroid) 125 mcg PO DAILY@0600 [facility] Last Admin: 01/11/20 09:19 Dose: 125 mcg Documented by: Lisinopril (Zestril) 10 mg PO BID [facility] Last Admin: 01/11/20 22:21 Dose: 10 mg Documented by: Melatonin (Melatonin) 3 mg PO QHS PRN PRN PRN Reason: INSOMNIA Morphine Sulfate () 2 mg IV Q3H PRN PRN PRN Reason: breakthrough pain Last Admin: 01/11/20 17:04 Dose: 2 mg Documented by: Oxycodone HCl (Oxyir) 5 mg PO Q4H PRN PRN PRN Reason: Pain Score 4-5/10 Oxycodone HCl (Oxyir) 10 mg PO Q4H PRN PRN PRN Reason: Pain Score 6-10/10 Last Admin: 01/12/20 06:49 Dose: 10 mg Documented by: Potassium Chloride (K-Dur) 20 meq PO DAILY [facility] Last Admin: 01/11/20 14:09 Dose: Not Given Documented by: Sodium Chloride () 10 - 40 ml IV UD PRN PRN Reason: SALINE FLUSH Last Admin: 01/11/20 17:04 Dose: 10 ml Documented by: Medical Necessity - Tobacco Use Smoking Status: Heavy Smoker (>10/day) Tobacco Use: Cigarettes Assessment/Plan All Active Problems (Last Reviewed 01/10/20 @ 19:[address] Howard Summers, DO) Intertrochanteric fracture of right hip (Acute) 1. S/P right hip open reduction internal fixation intramedullary nail fixation locked POD #1 2. Continue Pain Medications: Tylenol and OxyIR 3. DVT Prophylaxis: Xarelto for DVT prophylaxis for 2 weeks postoperatively 4. PT/OT: Toe-touch weightbearing right lower extremity with use of walker for 6 weeks postoperatively 5. H & H: 10.5/33.9, asymptomatic. Preoperatively patient hemoglobin was 15.2 6. Encouraged Incentive Spirometry 7. Continue postoperative medical management per medicine: Appreciate consult for surgical intervention and management of patient's comorbidities 8. Disposition: Orthopedically stable, okay for discharge from orthopedic standpoint when medically stable. Patient will require follow-up with [facility] Marielena Harris PA-C in 10 to 12 days for x-rays and suture/staple removal. Dressing can be removed 5 to 7 days postoperatively. Continue with dry dressing changes. Continue with Tylenol and oxycodone for pain control. Please contact orthopedics with any concerns or questions. Continue with toe-touch weightbearing with use of walker for the r ight lower extremity.
--- NOTE | 2020-01-12 08:36 | RAD_ITS ---
STUDY: X-RAY CHEST REASON FOR EXAM: Female, 64 years old. Hip surgery yesterday with a fever following, leucocytosis TECHNIQUE: Single AP portable view of the chest. COMPARISON: Comparison is made with prior examination of January 10, 2020. FINDINGS: The lungs are clear and expanded. There is no demonstrated pleural abnormality. Normal size heart. Normal mediastinum and jason. Normal visualized pulmonary arteries. There is atherosclerotic tortuosity of the aortic arch and descending thoracic aorta. Normal visualized thoracic spine. Normal visualized ribs, clavicles, and shoulders. There is no demonstrated abnormality of the visualized soft tissue structures of the upper abdomen. RAD/Chest 1 View (Portable) IMPRESSION: Normal x-ray examination of the chest. Electronically Signed: Billy Heath, at 9:27 EDT , Service support ,
--- NOTE | 2020-01-12 09:12 | CASEMGMT ---
Assessment- SW completed assessment with patient. She was sitting up in recliner Living situation- Patient lives with her and son in a 1 story home with a few entry steps PCP: Dr Butts Specialists: None [facility]: walker and grab bars ADL's/IADL's: Patient said she normally does not use her walker. She said she should have been using it. Her helps her with bathing, cooking, and cleaning. She does not drive. She manages her own medications. Past SNF/rehab: None Past HH: None LW: None POA: None Plan: SW spoke with patient about her d/c plan. SW explained that most patients with hip fractures go to nursing homes short term for rehab. She seemed to feel she would need to go to a longterm. SW told her SW will give her a list of nursing homes that are in network with her insurance. She will then just need to let SW know which facilities she would be willing to go to. Josy WHITTEN MSW
--- NOTE | 2020-01-12 09:52 | CASEMGMT ---
LUIS ARMANDO gave patient a list of facilities that are in network with her insurance. LUIS ARMANDO again instructed her to pick a couple of facilities she would be willing to go to. LUIS ARMANDO will check back. Josy WHITTEN MSW
[2020-01-12] MEDS: Levothyroxine 125 MCG Tablet PO (09:59)
[2020-01-12] MEDS: amLODIPine 5 MG Tablet PO (10:00)
[2020-01-12] MEDS: Lisinopril 10 MG Tablet PO ×2 (10:00→22:04)
[2020-01-12] MEDS: Anastrozole 1 MG Tablet PO (10:01)
--- NOTE | 2020-01-12 11:42 | CASEMGMT ---
RN told SW that patient's called in to patient's room and she told him she is going home. RN told patient's that patient is not going home today and that the SW will call him. SW called patient's and there was no answer and no option to leave a voice mail. SW will try and call again in a little bit. Josy WHITTEN MSW
[2020-01-12 11:51] LABS: Bedside Glucose 214 mg/dL (70-110)
--- NOTE | 2020-01-12 12:03 | PCM.PN.HOSP ---
<Vikash Figueroa - Last Filed: 01/12/20 12:03> Patient Problems: Active and Suspected Problems (Last Reviewed 01/10/20 @ 19:[address] Howard Summers DO) Intertrochanteric fracture of right hip (Acute) Reason for Visit: hip fx Subjective: The patient has minimal pain. No fever/chills. No SOB/cough. No nausea/vomiting/diarrhea. No dysuria. She denies LH/dizziness. No urbano bleeding. Vitals/I&O's: Vital Signs Temp Pulse Resp BP Pulse Ox 98.5 F 101 H 20 H 156/94 H 95 01/12/20 08:45 01/12/20 08:45 01/12/20 08:45 01/12/20 08:45 01/12/20 08:45 Oxygen Flow Rate (L/min) 2 Oxygen Delivery Method Nasal Cannula Weight: 120 lb 9.486 oz Body Mass Index (BMI) 23.5 Finger Stick Blood Glucose 181 Intake and Output for Last 24 Hours 01/10/20 01/11/20 01/12/20 23:59 23:59 23:59 Intake Total 450 / 450 3569 / 3669 2143.33 / 2143.33 Output Total 340 / 340 930 / 1030 275 / 275 Balance 110 / 110 2639 / 2639 1868.33 / 1868.33 General: Alert, Oriented x3, Cooperative HEENT: Atraumatic, PERRLA, EOMI, Normocephalic Neck: Supple, No JVD, Negative Carotid Bruits Lungs: Clear to auscultation, Normal air movement Cardiovascular: Regular rate, No murmurs Abdomen: Bowel Sounds Present, Soft, Non Tender Extremities: No edema, Capillary Refill Less than 3 Seconds Skin: No rashes, No breakdown Musculoskeletal: No Tenderness to Palpation of Joints or Extremities Neurological: Cranial nerves II-XII grossly intact Psych/Mental Status: Normal Affect, Appropriate, Alert and oriented to time, place, person, mood and affect Laboratory Results 01/11/20 13:37: POC Glucose 162 H 01/11/20 15:35: Urine Color Yellow, Urine Clarity Clear, Urine pH 6.0, Ur Specific [place] 1.025, Urine Protein 100 H, Urine Glucose (UA) 50 H, Urine Ketones 15 H, Urine Occult Blood 150 H, Urine Nitrite Negative, Urine Bilirubin Negative, Urine Urobilinogen Normal, Ur Leukocyte Esterase 100 H, Urine RBC 0-5 SEEN, Urine WBC 5-10 SEEN, Ur Squamous Epith Cells 0 SEEN, Urine Bacteria 0 SEEN, Urine Mucus 0 SEEN 01/11/20 16:32: POC Glucose 194 H 01/11/20 17:54: Hgb 13.0, Hct 40.8 01/11/20 22:24: POC Glucose 197 H 01/12/20 05:32: WBC 17.7 H, RBC 3.77 L, Hgb 10.5 L, Hct 33.9 L, MCV 89.9, MCH 27.9, MCHC 31.0 L, RDW Std Deviation 45.6 H, RDW Coeff of Chad 13.7, Plt Count 249, MPV 11.2, Immature Gran % (Auto) 0.900, Neut % (Auto) 80.1 H, Lymph % (Auto) 13.4 L, [place] % (Auto) 5.0, Eos % (Auto) 0.1, Baso % (Auto) 0.5, Absolute Neuts (auto) 14.2 H, Absolute Lymphs (auto) 2.37, Nucleated RBC % 0 01/12/20 05:32: Sodium 138, Potassium 3.8, Chloride 108 H, Carbon Dioxide 24.0, Anion Gap 6, BUN 13, Creatinine 0.85, Estim Creat Clear Calc 47.40, Est GFR (MDRD) Af Amer 86, Est GFR (MDRD) Non-Af 71, BUN/Creatinine Ratio 15.3, Glucose 221 H, Calcium 8.1 L, Phosphorus 3.5, Magnesium 1.6 01/12/20 06:39: POC Glucose 226 H 01/12/20 11:43: POC Glucose 214 H Current Medications Acetaminophen (Tylenol) 650 mg PO Q6H PRN PRN PRN Reason: Pain Score 1-10/Temp > 100.7 F Last Admin: 01/11/20 16:38 Dose: 650 mg Documented by: Amlodipine Besylate (Norvasc) 5 mg PO DAILY [facility] Last Admin: 01/12/20 10:00 Dose: 5 mg Documented by: Anastrozole (Arimidex) 1 mg PO DAILY [facility] Last Admin: 01/12/20 10:01 Dose: 1 mg Documented by: Cholecalciferol (Vitamin D (25mcg)) 2,000 unit PO DAILY [facility] Last Admin: 01/12/20 10:00 Dose: 2,000 unit Documented by: Dextrose (D50w Syringe) 0 gm IV X1 PRN; Protocol PRN Reason: Hypoglycemia Glucagon () 1 mg IM .X1 PRN PRN Reason: Hypoglycemia Sodium Chloride () 250 mls @ 15 mls/hr IV .[id number] PRN PRN Reason: Saline Flush Sodium Chloride () 250 mls @ 15 mls/hr IV .[id number] PRN PRN Reason: Additional IVPB Infusion Lactated Ringer's () 1,000 mls @ 100 mls/hr IV .Q10H [facility] Last Admin: 01/12/20 05:57 Dose: 100 mls/hr Documented by: Insulin Glargine (Lantus ([facility])) 10 units SC DAILY [facility] Last Admin: 01/12/20 10:02 Dose: 10 u Documented by: Insulin Human Lispro (Humalog Kwikpen ([facility])) 0 unit SC TIDAC [facility]; Protocol Last Admin: 01/12/20 06:42 Dose: 2 units Documented by: Levothyroxine Sodium (Synthroid) 125 mcg PO DAILY@0600 [facility] Last Admin: 01/12/20 09:59 Dose: 125 mcg Documented by: Lisinopril (Zestril) 10 mg PO BID [facility] Last Admin: 01/12/20 10:00 Dose: 10 mg Documented by: Melatonin (Melatonin) 3 mg PO QHS PRN PRN PRN Reason: INSOMNIA Morphine Sulfate () 2 mg IV Q3H PRN PRN PRN Reason: breakthrough pain Last Admin: 01/11/20 17:04 Dose: 2 mg Documented by: Oxycodone HCl (Oxyir) 5 mg PO Q4H PRN PRN PRN Reason: Pain Score 4-5/10 Oxycodone HCl (Oxyir) 10 mg PO Q4H PRN PRN PRN Reason: Pain Score 6-10/10 Last Admin: 01/12/20 06:49 Dose: 10 mg Documented by: Potassium Chloride (K-Dur) 20 meq PO DAILY [facility] Last Admin: 01/12/20 10:00 Dose: 20 meq Documented by: Sodium Chloride () 10 - 40 ml IV UD PRN PRN Reason: SALINE FLUSH Last Admin: 01/11/20 17:04 Dose: 10 ml Documented by: STROKE Vital Signs/Narrative: Vital Signs Temp Pulse Resp BP Pulse Ox 01/12/20 08:45 98.5 F 101 H 20 H 156/94 H 95 Medical Necessity - Tobacco Use Smoking Status: Heavy Smoker (>10/day) Tobacco Use: Cigarettes Assessment/Plan All Active Problems (Last Reviewed 01/10/20 @ 19:[address] Howard Summers, DO) Intertrochanteric fracture of right hip (Acute) 1. Right intertroch fx - post op D#0 (open reduction internal fixation, inramedullary nail) pt of Dr. Maurer. doing well post op. Had periop cefazolin. -Hgb decreased 15 to 10, recheck H/H. Xarelto held for the time being. If repeat Hgb is stable pt needs to resume xarelto 10 mg qd for DVT ppx as previously ordered by Dr. Maurer. 2. Periop fever- possibly anasthesia reaction as it has not recurred. WBC increased again, possibly reactive to fx/surgery. I do not see any obvious source of infection. CXR normal, UA negative, no symptoms indicating infectious source as per subjective. 3. Hypokalemia/hypomag - K normalized, replete mag. phos normal. 4. DMt2 - A1C 10.8. will attempt to optimize while here. Continue lantus, hold metformin, continue SSI. 5. hypothyroidism - synthroid. TSH normal. 6. HTN - norvasc. 7. hx Breast cancer - on anastrozole. 8. Vitamin D deficiency - vit d 17.9, continue PO replacement. DVT ppx: held for anemia, resume if H/H stable DC planning: PTOT This patient was seen by Vikash Figueroa PA-C under the supervision of Dr. Welch. <Bill Welch - Last Filed: 01/12/20 15:17> Reason for Visit: Right intertrochanteric fracture. Objective: Patient H&H dropped but does not require transfusion. Leukocytosis. No fever or chills. Heart rate is controlled. Yesterday it was in 100s. Vitals/I&O's: Vital Signs Temp Pulse Resp BP Pulse Ox 98.5 F 101 H 20 H 156/94 H 95 01/12/20 08:45 01/12/20 08:45 01/12/20 08:45 01/12/20 08:45 01/12/20 08:45 Oxygen Flow Rate (L/min) 2 Oxygen Delivery Method Nasal Cannula Weight: 120 lb 9.486 oz Body Mass Index (BMI) 23.5 Finger Stick Blood Glucose 181 Intake and Output for Last 24 Hours 01/10/20 01/11/20 01/12/20 23:59 23:59 23:59 Intake Total 450 / 450 3569 / 3669 2343.33 / 2343.33 Output Total 340 / 340 930 / 1030 525 / 525 Balance 110 / 110 2639 / 2639 1818.33 / 1818.33 General: Alert, Oriented x3, Cooperative HEENT: Atraumatic, PERRLA, EOMI, Normocephalic Neck: Supple, No JVD, Negative Carotid Bruits Lungs: Clear to auscultation, Normal air movement Cardiovascular: Regular rate, Regular Rhythm, Normal S1, Normal S2, No murmurs Abdomen: Bowel Sounds Present, Soft, Non Tender, Non-Distended Extremities: No edema, Capillary Refill Less than 3 Seconds Skin: No rashes, No breakdown Musculoskeletal: Arthritic Changes, Tenderness - Tenderness over operative region near night 3. Surgical dressing is dry. Neurological: Cranial nerves II-XII grossly intact, Deep Tendon Reflexes 2+/4 and Symmetrical, Neuro grossly intact Psych/Mental Status: Normal Affect, Appropriate Laboratory Results 01/11/20 15:35: Urine Color Yellow, Urine Clarity Clear, Urine pH 6.0, Ur Specific [place] 1.025, Urine Protein 100 H, Urine Glucose (UA) 50 H, Urine Ketones 15 H, Urine Occult Blood 150 H, Urine Nitrite Negative, Urine Bilirubin Negative, Urine Urobilinogen Normal, Ur Leukocyte Esterase 100 H, Urine RBC 0-5 SEEN, Urine WBC 5-10 SEEN, Ur Squamous Epith Cells 0 SEEN, Urine Bacteria 0 SEEN, Urine Mucus 0 SEEN 01/11/20 16:32: POC Glucose 194 H 01/11/20 17:54: Hgb 13.0, Hct 40.8 01/11/20 22:24: POC Glucose 197 H 01/12/20 05:32: WBC 17.7 H, RBC 3.77 L, Hgb 10.5 L, Hct 33.9 L, MCV 89.9, MCH 27.9, MCHC 31.0 L, RDW Std Deviation 45.6 H, RDW Coeff of [place] 13.7, Plt Count 249, MPV 11.2, Immature Gran % (Auto) 0.900, Neut % (Auto) 80.1 H, Lymph % (Auto) 13.4 L, [place] % (Auto) 5.0, Eos % (Auto) 0.1, Baso % (Auto) 0.5, Absolute Neuts (auto) 14.2 H, Absolute Lymphs (auto) 2.37, Nucleated RBC % 0 01/12/20 05:32: Sodium 138, Potassium 3.8, Chloride 108 H, Carbon Dioxide 24.0, Anion Gap 6, BUN 13, Creatinine 0.85, Estim Creat Clear Calc 47.40, Est GFR (MDRD) Af Amer 86, Est GFR (MDRD) Non-Af 71, BUN/Creatinine Ratio 15.3, Glucose 221 H, Calcium 8.1 L, Phosphorus 3.5, Magnesium 1.6 01/12/20 06:39: POC Glucose 226 H 01/12/20 11:43: POC Glucose 214 H 01/12/20 12:00: Hgb 11.3 L, Hct 36.5 L Current Medications Acetaminophen (Tylenol) 650 mg PO Q6H PRN PRN PRN Reason: Pain Score 1-10/Temp > 100.7 F Last Admin: 01/11/20 16:38 Dose: 650 mg Documented by: Amlodipine Besylate (Norvasc) 5 mg PO DAILY [facility] Last Admin: 01/12/20 10:00 Dose: 5 mg Documented by: Anastrozole (Arimidex) 1 mg PO DAILY [facility] Last Admin: 01/12/20 10:01 Dose: 1 mg Documented by: Cholecalciferol (Vitamin D (25mcg)) 2,000 unit PO DAILY [facility] Last Admin: 01/12/20 10:00 Dose: 2,000 unit Documented by: Dextrose (D50w Syringe) 0 gm IV X1 PRN; Protocol PRN Reason: Hypoglycemia Glucagon () 1 mg IM .X1 PRN PRN Reason: Hypoglycemia Sodium Chloride () 250 mls @ 15 mls/hr IV .[id number] PRN PRN Reason: Saline Flush Sodium Chloride () 250 mls @ 15 mls/hr IV .[id number] PRN PRN Reason: Additional IVPB Infusion Lactated Ringer's () 1,000 mls @ 100 mls/hr IV .Q10H [facility] Last Admin: 01/12/20 05:57 Dose: 100 mls/hr Documented by: Insulin Glargine (Lantus ([facility])) 10 units SC DAILY [facility] Last Admin: 01/12/20 10:02 Dose: 10 u Documented by: Insulin Human Lispro (Humalog Kwikpen ([facility])) 0 unit SC TIDAC [facility]; Protocol Last Admin: 01/12/20 12:09 Dose: 2 units Documented by: Levothyroxine Sodium (Synthroid) 125 mcg PO DAILY@0600 [facility] Last Admin: 01/12/20 09:59 Dose: 125 mcg Documented by: Lisinopril (Zestril) 10 mg PO BID [facility] Last Admin: 01/12/20 10:00 Dose: 10 mg Documented by: Melatonin (Melatonin) 3 mg PO QHS PRN PRN PRN Reason: INSOMNIA Morphine Sulfate () 2 mg IV Q3H PRN PRN PRN Reason: breakthrough pain Last Admin: 01/11/20 17:04 Dose: 2 mg Documented by: Oxycodone HCl (Oxyir) 5 mg PO Q4H PRN PRN PRN Reason: Pain Score 4-5/10 Oxycodone HCl (Oxyir) 10 mg PO Q4H PRN PRN PRN Reason: Pain Score 6-10/10 Last Admin: 01/12/20 06:49 Dose: 10 mg Documented by: Potassium Chloride (K-Dur) 20 meq PO DAILY [facility] Last Admin: 01/12/20 10:00 Dose: 20 meq Documented by: Sodium Chloride () 10 - 40 ml IV UD PRN PRN Reason: SALINE FLUSH Last Admin: 01/11/20 17:04 Dose: 10 ml Documented by: Assessment/Plan This patient was seen in conjunction with Vikash MAHARAJ. I have independently interviewed and examined the patient and reviewed pertinent history, examination findings, laboratory and plan of management. I have reviewed the note and agree with the documented findings with the few additional points. In brief, patient is 64-year-old female is being admitted after she got dizzy and fell down which resulted into right intertrochanteric fracture with moderate varus angulation. Shoulder x-ray was unremarkable. Dr. Maurer, orthopedic surgeon was consulted and patient had right ORIF with intramedullary nail fixation done on 01/11/2020. On the day of surgery, patient had fevers, sinus tachycardia related to perioperative stress and anesthetic medication effects. 01/12/2020: No fever today. UA is negative. Urine culture pending. No new acute urinary tract symptoms including burning micturition. Repeat chest x-ray independently reviewed and no acute change noticed and official report is normal. Leukocytosis worsened probably inflammatory in nature secondary to surgery. Mild acute anemia on anemia of chronic disease: Hemoglobin dropped from 15-11.3. Does not require transfusion. Continue incentive spirometry, DVT prophylaxis, PT and OT as perioperative care. Mild hypokalemia and hypomagnesemia; electrolytes replaced. Repeat magnesium 1.6 and is replaced. Diabetes mellitus type 2: Accu-Chek before meals and at bedtime. Glucose is between 150-214. Hypertension: Blood pressure is controlled on lisinopril 10 mg twice daily. Patient other comorbidities include COPD, hypothyroidism on levothyroxine, breast cancer which is in remission: Multiple comorbidities complicates the present care and expect difficult and delay recovery CODE STATUS: DNR CC arrest with no intubation. I have discussed my assessment with Vikash MAHARAJ and orders have been reviewed. Total time of the visit including total time spent in counseling or coordination of care, (more than 50% of the total time, spent in obtaining medical information from nurses and other ancillary care providers), discussion with platform consultant, review of labs and imaging is 35 minutes Inpatient E&M: [id number] [facility] H[facility] L2
--- NOTE | 2020-01-12 12:06 | CHAPLAIN ---
Type of Pastoral Visit _x__ Initial Visit ___ Follow-up Visit ___ On-call Visit ___ General Patient Visit ___ Spiritual Assessment ___ Family Conference ___ Bereavement ___ Rapid Response ___ Code Blue ___ Other (describe below) Pastoral Care Referral From _x__ Patient ___ Family ___ Nurse ___ Physician ___ Asset Protection Specialist ___ It Risk And Assurance Senior Manager ___ Other (describe below) Sacrament/Intervention _x__ Active listening ___ Anointing ___ Yarsanism ___ Bereavement ___ Communion ___ Tessie exploration ___ ___ Life review _x__ Prayer ___ Reconciliation ___ Sacrament of Sick _x__ Supportive presence ___ Wedding ___ Other (describe below) Pastoral Comments
[2020-01-12] MEDS: Magnesium Oxide 400 MG Tablet 800 MG PO (12:12)
[2020-01-12 12:42] LABS: Hematocrit 36.5 % (37-47); Hemoglobin 11.3 g/dL (12.0-15.0)
--- NOTE | 2020-01-12 13:14 | CASEMGMT ---
SW called patient's and discussed d/c plan. SW explained she will need to go to a shelter for rehab. He said he is not surprised. SW attempted to talk with him regarding which SNF and he told SW to ask patient as she will probably get mad if he picks the wrong one. SW told him SW will keep him up to date. SW went to patient's room and showed her the list again. She said she will have to talk with her about it. LUIS ARMANDO told her the sooner the better as SW will need to make a referral. Josy WHITTEN MSW
[2020-01-12] MEDS: oxyCODONE 5 MG Tablet PO (16:19)
[2020-01-12] MEDS: Rivaroxaban 10 MG Tablet PO (16:19)
[2020-01-12 16:56] LABS: Bedside Glucose 222 mg/dL (70-110)
[2020-01-12] MEDS: Acetaminophen 325 MG Tablet 650 MG PO (18:23)
[2020-01-12] MEDS: Morphine 2 MG/ML Syringe IV (18:23)
[2020-01-12] MEDS: 0.9% Saline Lock 10 ML Syringe IV (18:23)
[2020-01-12 22:31] LABS: Bedside Glucose 137 mg/dL (70-110)
[2020-01-13] MEDS: Lactated Ringers 1,000 ML 100 ML IV (02:42)
[2020-01-13] MEDS: oxyCODONE 5 MG Tablet 10 MG PO ×2 (02:43→20:48)
[2020-01-13] MEDS: Acetaminophen 325 MG Tablet 650 MG PO ×2 (02:43→15:21)
[2020-01-13 02:55] VITALS: BP 156/84; PULSE 114; RESP 18; TEMP 36.8; O2SAT 94
[2020-01-13] MEDS: Levothyroxine 125 MCG Tablet PO (05:31)
[2020-01-13 06:36] LABS: Bedside Glucose 150 mg/dL (70-110)
[2020-01-13 06:53] LABS: Absolute Lymphocyte Count 1.72 X10^3/uL (0.83-4.51); Absolute Neutrophil Count 13.6 X10^3/uL (2.0-7.7); Basophil# 0.06 X10^3/uL; Basophil% 0.4 % (0-1); Eosinophil# 0.05 X10^3/uL; Eosinophils% 0.3 % (0-5); Hemoglobin 9.9 g/dL (12.0-15.0); Lymphocyte # 1.72 X10^3/ul (4.0); Lymphocyte % 10.4 % (19-41); Mean Corp Hgb Conc 31.9 g/dL (32-36); Mean Corpuscular Hgb 27.9 pg (27.0-32.0); Mean Corpuscular Volume 87.3 fL (81-99); Mean Platelet Vol. 11.4 fl (6.2-12.0); Monocyte# 0.85 X10^3/uL; Monocyte% 5.2 % (0-10); NRBC Flagged by Analyzer 0 % (0-5); Neutrophil # 13.62 X10^3/uL (2.7-7.7); Neutrophil % 82.5 % (47-70); Platelet Count 201 K/mm3 (150-450); RBC Distribution Width CV 13.2 % (11.6-14.6); RBC Distribution Width SD 42.1 fl (35.1-43.9); Red Blood Count 3.55 M/mm3 (4.2-5.4); White Blood Count 16.5 K/mm3 (4.4-11.0)
[2020-01-13 09:00] VITALS: BP 168/97; PULSE 89; RESP 18; TEMP 37.1; O2SAT 92
[2020-01-13] MEDS: Lisinopril 10 MG Tablet PO ×2 (09:18→22:13)
[2020-01-13] MEDS: amLODIPine 5 MG Tablet PO ×2 (09:18→15:22)
[2020-01-13] MEDS: 0.9% Saline Lock 10 ML Syringe IV (09:18)
[2020-01-13] MEDS: Morphine 2 MG/ML Syringe IV ×2 (09:18→15:23)
[2020-01-13] MEDS: Anastrozole 1 MG Tablet PO (09:19)
--- NOTE | 2020-01-13 11:20 | CASEMGMT ---
LUIS ARMANDO spoke with patient and she has not talked with her yet. LUIS ARMANDO asked if she is ok with her making the decision and she said she is fine with that. LUIS ARMANDO called patient's and he would like [facility] TCU. LUIS ARMANDO spoke with Tamara and they can accept patient in TCU. She will start the pre-cert. LUIS ARMANDO spoke with patient and let her know this plan. She too was in agreement. LUIS ARMANDO updated RN. Plan: [facility] TCU pending insurance approval. Josy DARNELL
[2020-01-13 11:21] LABS: Bedside Glucose 161 mg/dL (70-110)
[2020-01-13] MEDS: Insulin Lispro 100 UNIT/ML INSULN.PEN SC ×2 (11:23→16:33)
--- NOTE | 2020-01-13 14:29 | PN_ITS ---
<Nazanin Hernandez - Last Filed: 01/13/20 14:36> Patient Problems: Active and Suspected Problems (Last Reviewed 01/10/20 @ 19:[address] Howard Summers DO) Intertrochanteric fracture of right hip (Acute) Subjective: Patient seen and examined. Complains of significant right hip pain. Plan for TCU pending insurance approval. - Physical Exam Vitals/I&O's: Vital Signs Temp Pulse Resp BP Pulse Ox 98.7 F 89 18 168/97 H 92 01/13/20 09:00 01/13/20 09:00 01/13/20 09:00 01/13/20 09:00 01/13/20 09:00 Oxygen Flow Rate (L/min) 2 Oxygen Delivery Method Nasal Cannula Weight: 120 lb 9.486 oz Body Mass Index (BMI) 23.5 Finger Stick Blood Glucose 181 Intake and Output for Last 24 Hours 01/11/20 01/12/20 01/13/20 23:59 23:59 23:59 Intake Total 3569 / 3669 3543.33 / 3543.33 / Output Total 930 / 1030 825 / 825 Balance 2639 / 2639 2718.33 / 2718.33 / General: Alert, Oriented x3, Cooperative HEENT: Atraumatic, PERRLA, EOMI, Normocephalic Neck: Supple, No JVD, Negative Carotid Bruits Lungs: Clear to auscultation, Normal air movement Cardiovascular: Regular rate, Regular Rhythm, Normal S1, Normal S2, No murmurs Abdomen: Bowel Sounds Present, Soft, Non Tender Extremities: No clubbing, No cyanosis, No edema, Capillary Refill Less than 3 Seconds Skin: No rashes, No breakdown, - - Right hip dressing intact Musculoskeletal: Tenderness - Right hip Neurological: Cranial nerves II-XII grossly intact, Neuro grossly intact Psych/Mental Status: Normal Affect, Appropriate Microbiology Past 72 Hours 01/11/20 15:35 Urine Catheter - Leonard Urine Culture - Preliminary Culture exhibits no growth. Laboratory Results 01/12/20 16:30: POC Glucose 222 H 01/12/20 22:03: POC Glucose 137 H 01/13/20 06:10: WBC 16.5 H, RBC 3.55 L, Hgb 9.9 L, Hct 31.0 L, MCV 87.3, MCH 27.9, MCHC 31.9 L, RDW Std Deviation 42.1, RDW Coeff of Chad 13.2, Plt Count 201, MPV 11.4, Immature Gran % (Auto) 1.200 H, Neut % (Auto) 82.5 H, Lymph % (Auto) 10.4 L, Harvey % (Auto) 5.2, Eos % (Auto) 0.3, Baso % (Auto) 0.4, Absolute Neuts (auto) 13.6 H, Absolute Lymphs (auto) 1.72, Nucleated RBC % 0 01/13/20 06:32: POC Glucose 150 H 01/13/20 11:18: POC Glucose 161 H Current Medications Acetaminophen (Tylenol) 650 mg PO Q6H PRN PRN PRN Reason: Pain Score 1-10/Temp > 100.7 F Last Admin: 01/13/20 02:43 Dose: 650 mg Documented by: Amlodipine Besylate (Norvasc) 5 mg PO DAILY [facility] Last Admin: 01/13/20 09:18 Dose: 5 mg Documented by: Anastrozole (Arimidex) 1 mg PO DAILY [facility] [place] Last Admin: 01/13/20 09:19 Dose: 1 mg Documented by: Cholecalciferol (Vitamin D (25mcg)) 2,000 unit PO DAILY [facility] [place] Last Admin: 01/13/20 09:18 Dose: 2,000 unit Documented by: Dextrose (D50w Syringe) 0 gm IV X1 PRN; Protocol PRN Reason: Hypoglycemia Docusate Sodium (Colace) 200 mg PO BID [facility] [place] Glucagon () 1 mg IM .X1 PRN PRN Reason: Hypoglycemia Sodium Chloride () 250 mls @ 15 mls/hr IV .[id number] PRN PRN Reason: Saline Flush Sodium Chloride () 250 mls @ 15 mls/hr IV .[id number] PRN PRN Reason: Additional IVPB Infusion Insulin Glargine (Lantus (Bkc)) 10 units SC DAILY [facility] [place] Last Admin: 01/13/20 09:17 Dose: 10 u Documented by: Insulin Glargine (Lantus (Bkc)) 5 units SC QHS [facility] [place] Last Admin: 01/12/20 22:06 Dose: 5 units Documented by: Insulin Human Lispro (Humalog Kwikpen (Bkc)) 0 unit SC TIDAC [facility] [place]; Protocol Last Admin: 01/13/20 11:23 Dose: 1 units Documented by: Levothyroxine Sodium (Synthroid) 125 mcg PO DAILY@0600 [facility] [place] Last Admin: 01/13/20 05:31 Dose: 125 mcg Documented by: Lisinopril (Zestril) 10 mg PO BID [facility] [place] Last Admin: 01/13/20 09:18 Dose: 10 mg Documented by: Magnesium Hydroxide (Milk Of Magnesia) 30 ml PO DAILY PRN PRN Reason: Constipation Melatonin (Melatonin) 3 mg PO QHS PRN PRN PRN Reason: INSOMNIA Morphine Sulfate () 2 mg IV Q3H PRN PRN PRN Reason: breakthrough pain Last Admin: 01/13/20 09:18 Dose: 2 mg Documented by: Oxycodone HCl (Oxyir) 5 mg PO Q4H PRN PRN PRN Reason: Pain Score 4-5/10 Last Admin: 01/12/20 16:19 Dose: 5 mg Documented by: Oxycodone HCl (Oxyir) 10 mg PO Q4H PRN PRN PRN Reason: Pain Score 6-10/10 Last Admin: 01/13/20 02:43 Dose: 10 mg Documented by: Potassium Chloride (K-Dur) 20 meq PO DAILY [facility] [place] Last Admin: 01/13/20 09:18 Dose: 20 meq Documented by: Rivaroxaban (Xarelto) 10 mg PO DAILY@1700 [facility] [place] Last Admin: 01/12/20 16:19 Dose: 10 mg Documented by: Sodium Chloride () 10 - 40 ml IV UD PRN PRN Reason: SALINE FLUSH Last Admin: 01/13/20 09:18 Dose: 10 ml Documented by: Medical Necessity - Tobacco Use Smoking Status: Heavy Smoker (>10/day) Tobacco Use: Cigarettes Assessment/Plan All Active Problems (Last Reviewed 01/10/20 @ 19:[address] Howard Summers, DO) Intertrochanteric fracture of right hip (Acute) 1. Right intertrochanter fracture status post open reduction internal fixation with intramedullary nailing by Dr. Maurer 01/12/2020- PT/OT. Ortho following. PRN pain regimen. TCU pending acceptance. 2. Perioperative fever-resolved. Suspect reactive. No evidence of infection. Chest x-ray and UA unremarkable. 3. Acute blood loss anemia, expected outcome related to surgery-appears stable, trend CBC. 4. Hypokalemia/hypomagnesia-resolved. 5. Type 2 diabetes mellitus-hemoglobin A1c 10.8%. Hold oral regimen. Accu- Cheks with sliding scale insulin. Continue long-acting regimen. 6. Hypothyroidism-continue Synthroid. 7. Hypertension-continue Norvasc regimen. 8. History of breast cancer-on anastrozole. 9. Vitamin D deficiency-continue oral replacement. DVT prophylaxis-Xarelto. Discharge planning: TCU pending acceptance. This patient was seen by VLADIMIR Berry under the supervision of Dr. Welch. <Bill Welch - Last Filed: 01/13/20 14:46> Subjective: Reason for visit: Right intertrochanteric hip fracture. Objective: Dynamically stable. Blood pressure elevated 168/97 Patient still has leukocytosis. H&H about 10 g%. - Physical Exam Vitals/I&O's: Vital Signs Temp Pulse Resp BP Pulse Ox 98.7 F 89 18 168/97 H 92 01/13/20 09:00 01/13/20 09:00 01/13/20 09:00 01/13/20 09:00 01/13/20 09:00 Oxygen Flow Rate (L/min) 2 Oxygen Delivery Method Nasal Cannula Weight: 120 lb 9.486 oz Body Mass Index (BMI) 23.5 Finger Stick Blood Glucose 181 Intake and Output for Last 24 Hours 01/11/20 01/12/20 01/13/20 23:59 23:59 23:59 Intake Total 3569 / 3669 3543.33 / 3543.33 Output Total 930 / 1030 825 / 825 Balance 2639 / 2639 2718.33 / 2718.33 General: Alert, Oriented x3, Cooperative HEENT: Atraumatic, PERRLA, EOMI, Normocephalic Neck: Supple, No JVD, Negative Carotid Bruits Lungs: Clear to auscultation, No rhonchi, No wheeze, No rales, Diminished - Air entry diminished bilateral lung bases. Cardiovascular: Regular rate, Regular Rhythm, Normal S2, No murmurs Abdomen: Bowel Sounds Present, Soft, Non Tender, Non-Distended Extremities: No edema, Capillary Refill Less than 3 Seconds Skin: No rashes, No breakdown, - - Right hip dressing intact Hip dressing is dry. Musculoskeletal: No Tenderness to Palpation of Joints or Extremities, Tenderness - Right hip Postsurgical pain Neurological: Cranial nerves II-XII grossly intact, Deep Tendon Reflexes 2+/4 and Symmetrical Psych/Mental Status: Normal Affect, Appropriate Microbiology Past 72 Hours 01/11/20 15:35 Urine Catheter - Leonard Urine Culture - Preliminary Culture exhibits no growth. Laboratory Results 01/12/20 16:30: POC Glucose 222 H 01/12/20 22:03: POC Glucose 137 H 01/13/20 06:10: WBC 16.5 H, RBC 3.55 L, Hgb 9.9 L, Hct 31.0 L, MCV 87.3, MCH 27.9, MCHC 31.9 L, RDW Std Deviation 42.1, RDW Coeff of Chad 13.2, Plt Count 201, MPV 11.4, Immature Gran % (Auto) 1.200 H, Neut % (Auto) 82.5 H, Lymph % (Auto) 10.4 L, Harvey % (Auto) 5.2, Eos % (Auto) 0.3, Baso % (Auto) 0.4, Absolute Neuts (auto) 13.6 H, Absolute Lymphs (auto) 1.72, Nucleated RBC % 0 01/13/20 06:32: POC Glucose 150 H 01/13/20 11:18: POC Glucose 161 H Current Medications Acetaminophen (Tylenol) 650 mg PO Q6H PRN PRN PRN Reason: Pain Score 1-10/Temp > 100.7 F Last Admin: 01/13/20 02:43 Dose: 650 mg Documented by: Amlodipine Besylate (Norvasc) 5 mg PO DAILY [facility] Last Admin: 01/13/20 09:18 Dose: 5 mg Documented by: Anastrozole (Arimidex) 1 mg PO DAILY [facility] Last Admin: 01/13/20 09:19 Dose: 1 mg Documented by: Cholecalciferol (Vitamin D (25mcg)) 2,000 unit PO DAILY [facility] [place] Last Admin: 01/13/20 09:18 Dose: 2,000 unit Documented by: Dextrose (D50w Syringe) 0 gm IV X1 PRN; Protocol PRN Reason: Hypoglycemia Docusate Sodium (Colace) 200 mg PO BID [facility] Glucagon () 1 mg IM .X1 PRN PRN Reason: Hypoglycemia Sodium Chloride () 250 mls @ 15 mls/hr IV .[id number] PRN PRN Reason: Saline Flush Sodium Chloride () 250 mls @ 15 mls/hr IV .[id number] PRN PRN Reason: Additional IVPB Infusion Insulin Glargine (Lantus (Bkc)) 10 units SC DAILY [facility] Last Admin: 01/13/20 09:17 Dose: 10 u Documented by: Insulin Glargine (Lantus (Bk)) 5 units SC QHS [facility] [place] Last Admin: 01/12/20 22:06 Dose: 5 units Documented by: Insulin Human Lispro (Humalog Kwikpen ([facility])) 0 unit SC TIDAC [facility]; Protocol Last Admin: 01/13/20 11:23 Dose: 1 units Documented by: Levothyroxine Sodium (Synthroid) 125 mcg PO DAILY@0600 [facility] Last Admin: 01/13/20 05:31 Dose: 125 mcg Documented by: Lisinopril (Zestril) 10 mg PO BID [facility] Last Admin: 01/13/20 09:18 Dose: 10 mg Documented by: Magnesium Hydroxide (Milk Of Magnesia) 30 ml PO DAILY PRN PRN Reason: Constipation Melatonin (Melatonin) 3 mg PO QHS PRN PRN PRN Reason: INSOMNIA Morphine Sulfate () 2 mg IV Q3H PRN PRN PRN Reason: breakthrough pain Last Admin: 01/13/20 09:18 Dose: 2 mg Documented by: Oxycodone HCl (Oxyir) 5 mg PO Q4H PRN PRN PRN Reason: Pain Score 4-5/10 Last Admin: 01/12/20 16:19 Dose: 5 mg Documented by: Oxycodone HCl (Oxyir) 10 mg PO Q4H PRN PRN PRN Reason: Pain Score 6-10/10 Last Admin: 01/13/20 02:43 Dose: 10 mg Documented by: Potassium Chloride (K-Dur) 20 meq PO DAILY [facility] Last Admin: 01/13/20 09:18 Dose: 20 meq Documented by: Rivaroxaban (Xarelto) 10 mg PO DAILY@1700 [facility] Last Admin: 01/12/20 16:19 Dose: 10 mg Documented by: Sodium Chloride () 10 - 40 ml IV UD PRN PRN Reason: SALINE FLUSH Last Admin: 01/13/20 09:18 Dose: 10 ml Documented by: Assessment/Plan This patient was seen in conjunction with Nazanin DEUTSCH. I have independently interviewed and examined the patient and reviewed pertinent history, examination findings, laboratory and plan of management. I have reviewed the note and agree with the documented findings with the few additional points. In brief, patient is 64-year-old female is being admitted after she got dizzy and fell down which resulted into right intertrochanteric fracture with moderate varus angulation. Shoulder x-ray was unremarkable. Dr. Maurer, orthopedic surgeon was consulted and patient had right ORIF with intramedullary nail fixation done on 01/11/2020. On the day of surgery, patient had fevers, sinus tachycardia related to perioperative stress and anesthetic medication effects. 01/13/2020: No fever. UA and urine culture negative. Repeat chest x-ray independently reviewed and no acute change noticed and official report is normal. Cytosis improving. Mild acute anemia on anemia of chronic disease: Hemoglobin dropped from 15-11.3, 9.9/31. Does not require transfusion. Continue incentive spirometry, DVT prophylaxis, PT and OT as perioperative care. Mild hypokalemia and hypomagnesemia; electrolytes replaced. Repeat magnesium 1.6 and is replaced. Diabetes mellitus type 2: Accu-Chek before meals and at bedtime. Glucose is between 150-214. Hypertension: Blood sugar is elevated. On lisinopril 10 mg twice daily and aml odipine 5 mg daily. Amlodipine increased to 10 mg daily. On hydralazine 10 mg IV every 4 hourly as needed for systolic blood pressure more than 180 mmHg. Patient other comorbidities include COPD, hypothyroidism on levothyroxine, breast cancer which is in remission: Multiple comorbidities complicates the present care and expect difficult and delay recovery CODE STATUS: DNR CC arrest with no intubation. I have discussed my assessment with Nazanin DEUTSCH and orders have been reviewed. Inpatient E&M: 36023 Subs Hosp L2
[2020-01-13 15:18] VITALS: BP 189/95; PULSE 100; RESP 18; TEMP 37.6; O2SAT 98
[2020-01-13] MEDS: Magnesium Hydroxide 30 ML UDC PO (15:22)
[2020-01-13] MEDS: Rivaroxaban 10 MG Tablet PO (16:32)
[2020-01-13 16:37] VITALS: BP 164/98; PULSE 102; RESP 18; TEMP 37.2; O2SAT 95
[2020-01-13 16:45] LABS: Bedside Glucose 182 mg/dL (70-110)
[2020-01-13 22:00] VITALS: O2SAT 94
[2020-01-13] MEDS: Docusate Sodium 100 MG Capsule 200 MG PO (22:13)
[2020-01-13 22:35] LABS: Bedside Glucose 231 mg/dL (70-110)
[2020-01-13 22:37] VITALS: BP 161/92; PULSE 97; RESP 16; TEMP 37.3; O2SAT 94
[2020-01-14 04:12] VITALS: BP 182/99; PULSE 98
[2020-01-14] MEDS: hydrALAZINE 20 MG/ML Vial 10 MG IV (04:12)
[2020-01-14 04:22] VITALS: BP 182/99; PULSE 98; RESP 16; TEMP 37.1; O2SAT 97
[2020-01-14 06:59] LABS: Hematocrit 33.2 % (37-47); Mean Corp Hgb Conc 33.1 g/dL (32-36); Mean Corpuscular Volume 84.5 fL (81-99); Mean Platelet Vol. 11.3 fl (6.2-12.0); Platelet Count 245 K/mm3 (150-450); RBC Distribution Width CV 13.3 % (11.6-14.6); RBC Distribution Width SD 41.1 fl (35.1-43.9); Red Blood Count 3.93 M/mm3 (4.2-5.4)
[2020-01-14] MEDS: Levothyroxine 125 MCG Tablet PO (07:01)
[2020-01-14] MEDS: Insulin Lispro 100 UNIT/ML INSULN.PEN SC ×2 (07:01→12:01)
[2020-01-14 07:25] LABS: Anion Gap 7 (5-15); BUN 12 mg/dL (7-18); BUN/Creat Ratio 18.2 RATIO (10-20); Calcium,Total 8.6 mg/dL (8.5-10.1); Chloride 98 mmol/L (98-107); Creatinine, Serum 0.66 mg/dL (0.55-1.02); EST Glomerular Filtration Rate 95 mL/min (>60); Est Glom Filt Rate - Afr Amer 115 mL/min (>60); Estimated Creatinine Clearance 61.04 ml/min; Glucose 181 mg/dL (74-106); Potassium 2.9 mmol/L (3.5-5.1); Sodium Level 134 mmol/L (136-145)
[2020-01-14 08:01] LABS: Bedside Glucose 184 mg/dL (70-110)
[2020-01-14 10:00] VITALS: RESP 18
[2020-01-14] MEDS: oxyCODONE 5 MG Tablet PO (10:32)
[2020-01-14] MEDS: Docusate Sodium 100 MG Capsule 200 MG PO (10:33)
[2020-01-14] MEDS: Lisinopril 10 MG Tablet PO (10:33)
[2020-01-14] MEDS: Anastrozole 1 MG Tablet PO (10:34)
[2020-01-14 10:37] VITALS: BP 137/94; PULSE 95; RESP 18; TEMP 36.8; O2SAT 97
[2020-01-14] MEDS: amLODIPine 10 MG Tablet PO (10:37)
--- NOTE | 2020-01-14 10:57 | CASEMGMT ---
Addendum entered by Eladia Amezcua 01/14/20 12:13: Social Work Pt ready for discharge. Orders faxed to TCU and RN made aware that pt can d/c when ready. SERGEY Pantoja Original Note: Social Work Phone call from Tamara in TCU and pt has been approved by insurance for admission to TCU. Physician notified and d/c planned for today. SW met with pt and informed and she is agreeable. With pt permission, phone call to pt and updated on d/c to TCU today. Plan: TCU, today SERGEY Pantoja
--- NOTE | 2020-01-14 11:37 | PCM.EXTCARCO ---
- Diet 01/12/20 08:03 Diet: Calorie Controlled Is pt able to select menu?: No How many daily calories?: 1800 calorie - Routine Orders/Code Status Enema Type: Fleetz Enema Frequency: Daily PRN Suppository Type: Dulcolax 10mg Suppository Frequency: Daily PRN Routine Lab Work: CBC, BMP, - - Daily X3 days then Q week. Reassess potassium. Code Status: DNRCC-A - No intubation - Wound(s) RIGHT HIP, LATERAL Wound Type: Surgical Incision - Suggestions for Active Care Change Position every (hours): 2 Times a day to sit in chair: 3 - Therapies Weight Bearin % WT BEARING Physical Therapy: Eval and Treat Occupational Therapy: Eval and Treat - Problem/Diagnosis (1) Intertrochanteric fracture of right hip Status: Acute Current Visit: Yes (2) Type 2 diabetes mellitus Status: Chronic Current Visit: No (3) Hypothyroidism Status: Chronic Current Visit: No (4) Thyroid disease Status: Chronic Current Visit: No - Allergies/Procedures Done in Hospital Allergies/Adverse Reactions: Allergies aspirin Allergy (Unknown, Verified 01/10/20 17:27) Nausea albuterol Adverse Reaction (Verified 01/10/20 17:27) I GET VERY SHAKEY/HYPERVENTILATING Penicillins Adverse Reaction (Verified 01/10/20 17:27) Nausea/Vom/Diarrhea Procedures: - - Right hip ORIF, intramedullary nail fixation - Type of Care/Length of Stay Estimated LOS: Convalescent Care Less Than 30 days Type of Care Needed: Skilled Rehab Potential: Fair Prognosis: Fair - Additional Orders/Day of Discharge Additional Orders: Toe-touch weightbearing right lower extremity with use of walker for 6 weeks postoperatively. Encourage incentive spirometry. H&P will serve as current which was dated: 01/10/20 Day of Discharge: 01/14/20 - Follow Up Care Primary Care Physician: Tera Butts MD [Primary Care Provider] - Please follow up with your Primary Care Physician in: 1 Week Please Follow Up With: Marielena Harris - Real When: 10 days
--- NOTE | 2020-01-14 12:07 | DS.PCM_ITS ---
<Nazanin Hernandez - Last Filed: 01/14/20 12:14> Discharge Date and Diagnosis Date of Admission: 01/10/20 Date of Discharge: 01/14/20 - Primary Discharge Diagnosis Active and Suspected Problems (Last Reviewed 01/10/20 @ 19:[address] Howard Summers DO) 1. Right intertrochanter fracture status post open reduction internal fixation with intramedullary nailing by Dr. Maurer 01/12/2020 2. Perioperative fever-resolved. Suspect reactive. No evidence of infection. 3. Acute blood loss anemia, expected outcome related to surgery 4. Hypokalemia/hypomagnesia-resolved. 5. Type 2 diabetes mellitus 6. Hypothyroidism 7. Hypertension 8. History of breast cancer 9. Vitamin D deficiency - Secondary Discharge Diagnosis Chronic Problems (Last Reviewed 01/10/20 @ 19:[address] Howard Summers DO) Type 2 diabetes mellitus (Chronic) Hypothyroidism (Chronic) Vision problems (Chronic) Thyroid disease (Chronic) High blood pressure (Chronic) Hearing problem (Chronic) Diabetes (Chronic) Carpal tunnel syndrome (Chronic) Breast cancer (Chronic) Asthma (Chronic) Arthritis (Chronic) Hospital Course and Treatment Imaging Results: Diagnostic Data Brain CT 01/10/20 17:35 IMPRESSION: 1. No acute findings. 2. Chronic bilateral lacunar infarcts. 3. Microvascular ischemia. Atrophy. Electronically Signed: Rosario Perry MD at 19:09 EDT Tel , Service support , Hip/Pelvis X-Ray 01/10/20 18:30 IMPRESSION: 1. Acute intertrochanteric fracture of the right femur with moderate varus angulation. 2. Suspected sacral insufficiency fracture. Electronically Signed: Rosario Perry MD at 19:11 EDT Tel , Service support , Shoulder X-Ray 01/10/20 18:30 IMPRESSION: Bony demineralization, otherwise negative x-ray examination of the shoulder. Electronically Signed: Rosario Perry MD at 19:17 EDT Tel , Service support , Hip X-Ray 01/11/20 11:45 IMPRESSION: Fluoroscopic spot views for hardware localization. Electronically Signed: Rosario Perry MD at 16:04 EDT Tel , Service support , Chest X-Ray 01/12/20 08:36 IMPRESSION: Normal x-ray examination of the chest. Electronically Signed: Billy Kumar, at 9:27 EDT , Service support , Dr. El Maurer, orthopedic surgery Operations: - - Right hip ORIF, intramedullary nail fixation Procedures: None Summary of Care Provided: The patient is a 64 year old F admitted for 01/10/2020 due to fall right hip. 1. Right intertrochanter fracture status post open reduction internal fixation with intramedullary nailing by Dr. Maurer 01/12/2020- PT/OT. TCU at discharge for rehab. Continue Xarelto for DVT prophylaxis. Follow-up with orthopedic medicine in 10 days for repeat imaging and suture/staple removal. 2. Perioperative fever-resolved. Suspect reactive. No evidence of infection. Chest x-ray and UA unremarkable. 3. Acute blood loss anemia, expected outcome related to surgery-stable, trend CBC. 4. Hypokalemia/hypomagnesia-replaced per protocol. Continue monitoring BMP at SNF. 5. Type 2 diabetes mellitus-hemoglobin A1c 10.8%. Continue home oral and insulin regimen. Home Lantus regimen increased to 10 units twice daily. 6. Hypothyroidism-continue Synthroid. 7. Hypertension-continue Norvasc regimen. 8. History of breast cancer-on anastrozole. 9. Vitamin D deficiency-continue oral replacement. General: Alert, Oriented x3, Cooperative HEENT: Atraumatic, PERRLA, EOMI, Normocephalic Neck: Supple, No JVD, Negative Carotid Bruits Lungs: Clear to auscultation, Normal air movement Cardiovascular: Regular rate, Regular Rhythm, Normal S1, Normal S2, No murmurs Abdomen: Bowel Sounds Present, Soft, Non Tender Extremities: No clubbing, No cyanosis, No edema, Capillary Refill Less than 3 Seconds Skin: No rashes, No breakdown, - - Right hip dressing intact Musculoskeletal: Tenderness - Right hip Neurological: Cranial nerves II-XII grossly intact, Neuro grossly intact Psych/Mental Status: Normal Affect, Appropriate Patient seen and examined prior to discharge. Physical assessment as noted ab ove. Patient is stable for discharge with follow up recommendations as noted above. This patient was seen by VLADIMIR Berry under the supervision of Dr. Welch. - Physical Exam Vitals/I&O's: Vital Signs Temp Pulse Resp BP Pulse Ox 98.2 F 95 18 137/94 H 97 01/14/20 10:37 01/14/20 10:37 01/14/20 10:37 01/14/20 10:37 01/14/20 10:37 Oxygen Flow Rate (L/min) 1 Oxygen Delivery Method Room Air Weight: 120 lb 9.486 oz Body Mass Index (BMI) 23.5 Finger Stick Blood Glucose 181 Intake and Output for Last 24 Hours 01/12/20 01/13/20 01/14/20 23:59 23:59 23:59 Intake Total 3543.33 / 3543.33 2166.67 / 2466.67 500 / 500 Output Total 825 / 825 450 / 450 Balance 2718.33 / 2718.33 2166.67 / 2216.67 50 / 50 Microbiology Past 72 Hours 01/11/20 15:35 Urine Catheter - Leonard Urine Culture - Final Culture exhibits no growth. Laboratory Results 01/13/20 16:31: POC Glucose 182 H 01/13/20 22:17: POC Glucose 231 H 01/14/20 06:24: WBC 14.0 H, RBC 3.93 L, Hgb 11.0 L, Hct 33.2 L, MCV 84.5, MCH 28.0, MCHC 33.1, RDW Std Deviation 41.1, RDW Coeff of Chad 13.3, Plt Count 245, MPV 11.3 01/14/20 06:24: Sodium 134 L, Potassium 2.9 L, Chloride 98, Carbon Dioxide 29.0, Anion Gap 7, BUN 12, Creatinine 0.66, Estim Creat Clear Calc 61.04, Est GFR (MDRD) Af Amer 115, Est GFR (MDRD) Non-Af 95, BUN/Creatinine Ratio 18.2, Glucose 181 H, Calcium 8.6 01/14/20 06:56: POC Glucose 184 H Current Medications Acetaminophen (Tylenol) 650 mg PO Q6H PRN PRN PRN Reason: Pain Score 1-10/Temp > 100.7 F Last Admin: 01/13/20 15:21 Dose: 650 mg Documented by: Amlodipine Besylate (Norvasc) 10 mg PO DAILY [facility] Last Admin: 01/14/20 10:37 Dose: 10 mg Documented by: Anastrozole (Arimidex) 1 mg PO DAILY [facility] Last Admin: 01/14/20 10:34 Dose: 1 mg Documented by: Cholecalciferol (Vitamin D (25mcg)) 2,000 unit PO DAILY [facility] Last Admin: 01/14/20 10:32 Dose: 2,000 unit Documented by: Dextrose (D50w Syringe) 0 gm IV X1 PRN; Protocol PRN Reason: Hypoglycemia Docusate Sodium (Colace) 200 mg PO BID [facility] Last Admin: 01/14/20 10:33 Dose: 200 mg Documented by: Glucagon () 1 mg IM .X1 PRN PRN Reason: Hypoglycemia Hydralazine HCl (Apresoline Iv) 10 mg IV Q4H PRN PRN PRN Reason: SBP>180 Last Admin: 01/14/20 04:12 Dose: 10 mg Documented by: Sodium Chloride () 250 mls @ 15 mls/hr IV .[id number] PRN PRN Reason: Saline Flush Sodium Chloride () 250 mls @ 15 mls/hr IV .[id number] PRN PRN Reason: Additional IVPB Infusion Insulin Glargine (Lantus (Bkc)) 10 units SC DAILY [facility] Last Admin: 01/14/20 10:34 Dose: 10 u Documented by: Insulin Glargine (Lantus (Bkc)) 5 units SC QHS [facility] Last Admin: 01/13/20 22:14 Dose: 5 units Documented by: Insulin Human Lispro (Humalog Kwikpen (Bkc)) 0 unit SC TIDAC [facility]; Protocol Last Admin: 01/14/20 12:01 Dose: 2 units Documented by: Levothyroxine Sodium (Synthroid) 125 mcg PO DAILY@0600 [facility] Last Admin: 01/14/20 07:01 Dose: 125 mcg Documented by: Lisinopril (Zestril) 10 mg PO BID [facility] Last Admin: 01/14/20 10:33 Dose: 10 mg Documented by: Magnesium Hydroxide (Milk Of Magnesia) 30 ml PO DAILY PRN PRN Reason: Constipation Last Admin: 01/13/20 15:22 Dose: 30 ml Documented by: Melatonin (Melatonin) 3 mg PO QHS PRN PRN PRN Reason: INSOMNIA Morphine Sulfate () 2 mg IV Q3H PRN PRN PRN Reason: breakthrough pain Last Admin: 01/13/20 15:23 Dose: 2 mg Documented by: Oxycodone HCl (Oxyir) 5 mg PO Q4H PRN PRN PRN Reason: Pain Score 4-5/10 Last Admin: 01/14/20 10:32 Dose: 5 mg Documented by: Oxycodone HCl (Oxyir) 10 mg PO Q4H PRN PRN PRN Reason: Pain Score 6-10/10 Last Admin: 01/13/20 20:48 Dose: 10 mg Documented by: Potassium Chloride (K-Dur) 20 meq PO DAILY [facility] Last Admin: 01/14/20 10:33 Dose: 20 meq Documented by: Rivaroxaban (Xarelto) 10 mg PO DAILY@1700 [facility] Last Admin: 01/13/20 16:32 Dose: 10 mg Documented by: Sodium Chloride () 10 - 40 ml IV UD PRN PRN Reason: SALINE FLUSH Last Admin: 01/13/20 09:18 Dose: 10 ml Documented by: Home Medications: Medications to take at Discharge metFORMIN HCl [Glucophage] 500 mg PO DAILY 12/22/14 Anastrozole 1 mg PO DAILY 03/23/19 Amlodipine [Norvasc] 5 mg PO DAILY 01/10/20 Enalapril Maleate [Vasotec] 10 mg PO BID 01/10/20 Levothyroxine Sodium [Synthroid] 125 mcg PO DAILY 01/10/20 Acetaminophen [Tylenol Tablet] 650 mg PO Q6H PRN PRN tab 01/14/20 Cholecalciferol (VIT D3) [Vitamin D3] 2,000 unit PO DAILY tab 01/14/20 Docusate Sodium [Colace] 200 mg PO BID cap 01/14/20 Insulin Glargine,Hum.rec.anlog [Lantus Solostar] 10 unit SUBCUT BID #0 01/14/20 Insulin Lispro [Humalog KwikPen] See Protocol SUBCUT TIDAC insuln.pen 01/14/20 Oxycodone [Oxyir] 5 mg PO Q4H PRN PRN 2 Days #10 tab 01/14/20 Potassium Chloride [K-Dur] 40 meq PO DAILY #0 01/14/20 Rivaroxaban [Xarelto] 10 mg PO DAILY@1700 tab 01/14/20 Primary Care Physician: Tera Butts MD [Primary Care Provider] - Please follow up with your Primary Care Physician in: 1 Week Please Follow Up With: Marielena Harris - Real When: 10 days Disposition: Halfway facility Minutes spent on discharge:: 35 Patient Condition:: Stable Medical Necessity - Tobacco Use Smoking Status: Heavy Smoker (>10/day) Tobacco Use: Cigarettes Meaningful Use Info Meaningful Use Diagnoses (Choose all that apply): None applicable <Bill Welch - Last Filed: 01/14/20 13:37> Discharge Date and Diagnosis - Secondary Discharge Diagnosis Chronic Problems (Last Reviewed 01/10/20 @ 19:[address] Howard Summers, DO) Type 2 diabetes mellitus (Chronic) Hypothyroidism (Chronic) Vision problems (Chronic) Thyroid disease (Chronic) High blood pressure (Chronic) Hearing problem (Chronic) Diabetes (Chronic) Carpal tunnel syndrome (Chronic) Breast cancer (Chronic) Asthma (Chronic) Arthritis (Chronic) Hospital Course and Treatment Summary of Care Provided: This patient was seen in conjunction with [employer] OFFICERN[employer]anin. I have independently interviewed and examined the patient and reviewed pertinent history, examination findings, laboratory and plan of management. I have reviewed the note and agree with the documented findings with the few additional points. In brief, patient is 64-year-old female is being admitted after she got dizzy and fell down which resulted into right intertrochanteric fracture with moderate varus angulation. Shoulder x-ray was unremarkable. Dr. Maurer, orthopedic surgeon was consulted and patient had right ORIF with intramedullary nail fixation done on 01/11/2020. On the day of surgery, patient had fevers, sinus tachycardia related to perioperative stress and anesthetic medication effects. 01/14/2020: No fever. UA and urine culture negative. Repeat chest x-ray independently reviewed and no acute change noticed and official report is normal. Leukocytosis improving. Mild acute anemia on anemia of chronic disease: Hemoglobin dropped from 15-11.3, 9., improved to . Does not require transfusion. Continue incentive spirometry, DVT prophylaxis, PT and OT as perioperative care. Mild hypokalemia and hypomagnesemia; electrolytes replaced. K2.9, potassium being replaced. Diabetes mellitus type 2: Accu-Chek before meals and at bedtime. Glucose is between 150-215. Hypertension: Blood sugar is elevated. On lisinopril 10 mg twice daily and Amlodipine 5 mg daily. On hydralazine 10 mg IV every 4 hourly as needed for systolic blood pressure more than 180 mmHg. Patient other comorbidities include COPD, hypothyroidism on levothyroxine, breast cancer which is in remission: Multiple comorbidities complicates the present care and expect difficult and delay recovery CODE STATUS: DNR CC arrest with no intubation.[] Discharge medication reconciliation done. Discharge follow-up instructions completed. Discharge process discussed with the patient and all questions were answered to patient's satisfaction. Patient is being discharged to TCU Total time spent, exact 35 minutes on discharge meds reconciliation, examination, coordination of care with nurses and ancillary staff, review of imaging and blood test and discussion with the patient on follow-up instructions Subjective: Seen and examined. Hemodynamically stable. No fever. Objective: General: Alert, Oriented x3, Cooperative HEENT: Atraumatic, PERRLA, EOMI, Normocephalic Neck: Supple, No JVD, Negative Carotid Bruits Lungs: Clear to auscultation, No rhonchi, No wheeze, No rales, Air entry d iminished bilateral lung bases. Cardiovascular: Regular rate, Regular Rhythm, Normal S2, No murmurs Abdomen: Bowel Sounds Present, Soft, Non Tender, Non-Distended Extremities: No edema, Capillary Refill Less than 3 Seconds Skin: No rashes, No breakdown, Right hip dressing intact Hip dressing is dry. Musculoskeletal: No Tenderness to Palpation of Joints or Extremities, Right hip Postsurgical mild tenderness Neurological: Cranial nerves II-XII grossly intact, Deep Tendon Reflexes 2+/4 and Symmetrical Psych/Mental Status: Normal Affect, Appropriate - Physical Exam Vitals/I&O's: Vital Signs Temp Pulse Resp BP Pulse Ox 97.7 F L 117 H 18 138/55 H 94 01/14/20 12:53 01/14/20 12:53 01/14/20 12:53 01/14/20 12:53 01/14/20 12:53 Oxygen Flow Rate (L/min) 1 Oxygen Delivery Method Room Air Weight: 120 lb 9.486 oz Body Mass Index (BMI) 23.5 Finger Stick Blood Glucose 181 Intake and Output for Last 24 Hours 01/12/20 01/13/20 01/14/20 23:59 23:59 23:59 Intake Total 3543.33 / 3543.33 2166.67 / 2466.67 1250 / 1250 Output Total 825 / 825 450 / 450 Balance 2718.33 / 2718.33 2166.67 / 2216.67 800 / 800 Microbiology Past 72 Hours 01/11/20 15:35 Urine Catheter - Leonard Urine Culture - Final Culture exhibits no growth. Laboratory Results 01/13/20 16:31: POC Glucose 182 H 01/13/20 22:17: POC Glucose 231 H 01/14/20 06:24: WBC 14.0 H, RBC 3.93 L, Hgb 11.0 L, Hct 33.2 L, MCV 84.5, MCH 28.0, MCHC 33.1, RDW Std Deviation 41.1, RDW Coeff of Chad 13.3, Plt Count 245, MPV 11.3 01/14/20 06:24: Sodium 134 L, Potassium 2.9 L, Chloride 98, Carbon Dioxide 29.0, Anion Gap 7, BUN 12, Creatinine 0.66, Estim Creat Clear Calc 61.04, Est GFR (MDRD) Af Amer 115, Est GFR (MDRD) Non-Af 95, BUN/Creatinine Ratio 18.2, Glucose 181 H, Calcium 8.6 01/14/20 06:56: POC Glucose 184 H 01/14/20 11:59: POC Glucose 215 H Inpatient E&M: [id number] Disch Hosp
[2020-01-14 12:21] LABS: Bedside Glucose 215 mg/dL (70-110)
[2020-01-14 12:53] VITALS: BP 138/55; PULSE 117; RESP 18; TEMP 36.5; O2SAT 94
== END 2020-01-14 13:30 | disposition skilled nursing facility (03) | DRG 481 ==
LOC: ED 18:48 → PCU 20:28
PROVIDERS: Anesthesiology; Nurse Practitioner Family; Orthopaedic Surgery; Physician Assistant; Emergency Provider Emergency Medicine; PCP Internal Medicine; Visit Provider Internal Medicine
PROC: 0QS606Z Reposition Right Upper Femur with Intramedullary Internal Fixation Device, Open Approach (ICD-10-PCS; CPT 27245; principal; 2020-01-11 09:40)
DX: S72.141A Displaced intertrochanteric fracture of right femur, initial encounter for closed fracture (principal); D62 Acute posthemorrhagic anemia; R50.9 Fever, unspecified; W19.XXXA Unspecified fall, initial encounter; T50.2X5A Adverse effect of carbonic-anhydrase inhibitors, benzothiadiazides and other diuretics, initial encounter; E87.6 Hypokalemia; D63.8 Anemia in other chronic diseases classified elsewhere; E55.9 Vitamin D deficiency, unspecified; E03.9 Hypothyroidism, unspecified; I10 Essential (primary) hypertension; E11.9 Type 2 diabetes mellitus without complications; J44.9 Chronic obstructive pulmonary disease, unspecified; F17.210 Nicotine dependence, cigarettes, uncomplicated; G56.00 Carpal tunnel syndrome, unspecified upper limb; M19.90 Unspecified osteoarthritis, unspecified site; Z66 Do not resuscitate; Z85.3 Personal history of malignant neoplasm of breast; Z79.899 Other long term (current) drug therapy; Z79.4 Long term (current) use of insulin
CPT/HCPCS: 36415; 70450; 71045; 73030; 73502; 76000; 80048; 81001; 82306; 82962; 83036; 83735; 84100; 84443; 85014; 85018; 85025; 85027; 85610; 85730; 86850; 86900; 86901; 87086; 93005; 97110; 97116; 97162; 97166; 97530; 97535; 99285; 99406; C1713; J7030; J7040; J7120; A4216; J2405

== ENCOUNTER 2020-01-14 13:46 | Inpatient (IN) | payer BC, SELFPAY ==
[2020-01-11 14:57] VITALS: BMI 23.5
[2020-01-14 13:54] VITALS: BP 140/78; PULSE 100; PULSE 120; RESP 18; TEMP 37.7; O2SAT 90; BMI 24.7; BMI 24.8
--- NOTE | 2020-01-14 13:55 | HP.PCM_ITS ---
Problem List (1) Debility Status: Acute (2) Fall Status: Acute (3) Sacral fracture Status: Acute (4) Stroke Status: Chronic (5) Vertigo Status: Chronic (6) Osteoarthritis Status: Chronic (7) Hypokalemia Status: Chronic (8) Marijuana smoker, continuous Status: Chronic (9) Intertrochanteric fracture of right hip Status: Acute (10) Hypothyroidism Status: Chronic (11) High blood pressure Status: Chronic (12) Diabetes Status: Chronic (13) Breast cancer Status: Chronic (14) Asthma Status: Chronic History of Present Illness Date of Admission: 01/14/20 Chief Complaint: Here for rehabilitation, strengthening, prior to discharge home with . The patient is a 64 year old Female with below past medical history presented to [facility] Emergency Department 01/10/2020 with fall. 01/10/2020 CT brain showed chronic bilateral lacunar infarcts, microvascular ischemia, atrophy. 01/10/2020 EKG sinus tachycardia, ST&T wave abnormality, consider inferior, anterolateral ischemia. 01/10/2020 Chest X-ray normal. 01/10/2020 X-ray pelvis, right hip showed right hip fracture, sacral fracture. 01/10/2020 X-ray right shoulder negative. Chronic vertigo, fell, landed right hip. WBC 12.7, Hemoglobin 15.2, Potassium 3.1, Glucose 316. Cr 1.13. Fentanyl, Zofran given. 01/10/2020 Admit to Hospital. Low risk for surgery. Replete potassium for hypokalemia. Hold Metformin, use sliding scale insulin instead for diabetes. 01/11/2020 Dr. El Maurer performed ORIF right hip, intramedullary nail fixation, locked. 01/11/2020 Fever 102, check UA. Replete potassium, magnesium. 01/12/2020 Chest X-ray negative. 01/12/2020 Hold Xarelto for postoperative anemia. Xarelto 10MG daily for DVT prophylaxis if hemoglobin stable. Fever, no obvious source of infection. A1c 10.8, optimize diabetes medication while in hospital. 01/13/2020 Fever resolved. CBC stable. 01/14/2020 Admit to TCU with debility, here for rehabilitation, strengthening, prior to discharge home with . Past Medical History Past Medical History (Chronic Problems): Chronic Problems (Last Reviewed 01/10/20 @ 19:[address] Howard Summers, DO) Stroke (Chronic) Vertigo (Chronic) Osteoarthritis (Chronic) Hypokalemia (Chronic) Marijuana smoker, continuous (Chronic) Type 2 diabetes mellitus (Chronic) Hypothyroidism (Chronic) Vision problems (Chronic) Thyroid disease (Chronic) High blood pressure (Chronic) Hearing problem (Chronic) Diabetes (Chronic) Carpal tunnel syndrome (Chronic) Breast cancer (Chronic) Asthma (Chronic) Arthritis (Chronic) Medical History: Medical History (Last Reviewed 01/10/20 @ 19:[address] Howard Summers DO) Vision problems (Chronic) H54.7 Thyroid disease (Chronic) E07.9 High blood pressure (Chronic) I10 Hearing problem (Chronic) H91.90 Diabetes (Chronic) E11.9 Carpal tunnel syndrome (Chronic) G56.00 Breast cancer (Chronic) C50.919 Asthma (Chronic) J45.909 Arthritis (Chronic) M19.90 Allergies aspirin Allergy (Unknown, Verified 01/10/20 17:27) Nausea albuterol Adverse Reaction (Verified 01/10/20 17:27) I GET VERY SHAKEY/HYPERVENTILATING Penicillins Adverse Reaction (Verified 01/10/20 17:27) Nausea/Vom/Diarrhea Home Medications: Ambulatory Orders Medication Instructions Recorded metFORMIN HCl [Glucophage] 500 mg PO DAILY 12/22/14 Anastrozole 1 mg PO DAILY 03/23/19 Amlodipine [Norvasc] 5 mg PO DAILY 01/10/20 Enalapril Maleate [Vasotec] 10 mg PO BID 01/10/20 Levothyroxine Sodium [Synthroid] 125 mcg PO DAILY 01/10/20 Acetaminophen [Tylenol Tablet] 650 mg PO Q6H PRN PRN tab 01/14/20 Cholecalciferol (VIT D3) [Vitamin 2,000 unit PO DAILY tab 01/14/20 D3] Docusate Sodium [Colace] 200 mg PO BID cap 01/14/20 Insulin Glargine,Hum.rec.anlog 10 unit SUBCUT BID #0 01/14/20 [Lantus Solostar] Insulin Lispro [Humalog KwikPen] See Protocol SUBCUT TIDAC 01/14/20 insuln.pen Oxycodone [Oxyir] 5 mg PO Q4H PRN PRN 2 Days #10 tab 04/10/20 Potassium Chloride [K-Dur] 40 meq PO DAILY #0 01/14/20 Rivaroxaban [Xarelto] 10 mg PO DAILY@1700 tab 01/14/20 Surgical History: - - ORIF right hip, intramedullary nail, locked 01/11/2020. 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 - *Family History Maternal Family History: Family History (Last Reviewed 01/10/20 @ 19:[address] Howard Summers DO) Father Cancer Brother Heart disease History Items: No pertinent history Paternal Family History: Family History (Last Reviewed 01/10/20 @ 19:[address] Howard Summers DO) Father Cancer Brother Heart disease History Items: No pertinent history Review of Systems Constitutional: Denies: Chills, Fever, Weight Change HEENT: Denies: Head Aches, Sinus Congestion, Sinus Drainage Cardiovascular: Denies: Chest Pain, Palpitations Respiratory: Denies: Cough, Shortness of breath at rest, Sputum production Gastrointestinal: Denies: Abdominal Pain, Nausea, Vomiting Genitourinary: Denies: Dysuria Musculoskeletal: Denies: Joint Pain, Joint Tenderness Skin: Denies: Rash, Wounds Neurological: Denies: Numbness, Tingling, Focal weakness Psychiatric: Denies: Anxiety, Depression, Homicidal Ideations, Suicidal Ideations Hematologic/ Lymphatic: Denies: Easy Bruising, Easy Bleeding VTE Information - Inpt Only VTE Present on Admission: No VTE Mechan Device Prophylaxis: Knee High NAVENE Hose VTE Pharm Prophylaxis ordered?: Yes Patient Problems: Active and Suspected Problems (Last Reviewed 01/10/20 @ 19:[address] Howard Summers DO) Debility (Acute) Fall (Acute) Sacral fracture (Acute) - Physical Exam Vitals/I&O's: Body Mass Index (BMI) 23.5 Finger Stick Blood Glucose 181 General: Alert, Oriented x3, Cooperative HEENT: Atraumatic, PERRLA, EOMI, Normocephalic Neck: Supple, No JVD, Negative Carotid Bruits Lungs: Clear to auscultation, Normal air movement Cardiovascular: Regular rate, No murmurs Abdomen: Bowel Sounds Present, Soft, Non Tender Extremities: No edema, Capillary Refill Less than 3 Seconds Skin: No rashes, No breakdown, Incision - Right hip incision clean, dry, intact. Musculoskeletal: No Tenderness to Palpation of Joints or Extremities Neurological: Cranial nerves II-XII grossly intact Psych/Mental Status: Normal Affect, Appropriate Assessment/Plan All Active Problems (Last Reviewed 01/10/20 @ 19:[address] Howard Summers, DO) Debility (Acute) Fall (Acute) Sacral fracture (Acute) Intertrochanteric fracture of right hip (Acute) 64 year old female with below past medical history hospitalized for right hip fracture, sacral fracture, underwent right hip ORIF, intramedullary nail 01/11/[address] El Maurer, postoperative course complicated by reactive fever, admitted to TCU with debility, here for rehabilitation, strengthening, prior to discharge home with . * Debility - PT/OT. * Pain - Tylenol 1000MG Q6H PRN pain (1-3), Oxycodone 5MG Q4H PRN pain (4-10). * Bowel - Miralax 17GM daily, senna/colace 2 tablets BID, Dulcolax 10MG daily PRN. * Adult immunization - Administer Prevnar 13, Pneumovax 23, Fluzone as appropriate. * DVT prophylaxis - Xarelto 10MG daily thru 02/15/2020. * Diabetes Mellitus II - Metformin 500MG daily, Lantus 20 units QHS, Humalog 7 units TIDAC, monitor blood sugars. * Breast cancer - Anastrazole 1MG daily. * Hypertension - Enalapril 10MG BID, Amlodipine 5MG daily. * Hypothyroidism - Levothyroxine 125MCG daily. * Vitamin D deficiency - D3 2000IU daily. * Hypokalemia - K-Dur 40MEQ daily.
--- NOTE | 2020-01-14 14:16 | CASEMGMT ---
Social work Met with pt to complete initial assessment. Completed MOLST form-copy placed on chart. Pt denies wanting to complete advanced directives at this time. Francie Ibanez, social work director international CARIE RiveraW
--- NOTE | 2020-01-14 14:17 | CASEMGMT ---
Social Work Reviewed and agreed with social work planning intern documentation on this date. Denisha Cadet, GARDENER FLORIST CHEMICAL OPERATOR
[2020-01-14] MEDS: Senna/Docusate Sodium 1 Tablet 2 TABLET PO (17:07)
[2020-01-14] MEDS: oxyCODONE 5 MG Tablet PO (17:07)
[2020-01-14] MEDS: Rivaroxaban 10 MG Tablet PO (17:08)
[2020-01-14] MEDS: Lisinopril 10 MG Tablet PO (17:09)
[2020-01-14] MEDS: Insulin Lispro 100 UNIT/ML INSULN.PEN 7 UNIT SC (17:17)
[2020-01-14 17:21] LABS: Bedside Glucose 303 mg/dL (70-110)
[2020-01-14 20:56] LABS: Bedside Glucose 174 mg/dL (70-110)
[2020-01-15] MEDS: oxyCODONE 5 MG Tablet PO ×2 (02:38→19:54)
[2020-01-15 06:01] LABS: Absolute Lymphocyte Count 2.08 X10^3/uL (0.83-4.51); Absolute Neutrophil Count 8.5 X10^3/uL (2.0-7.7); Basophil# 0.08 X10^3/uL; Basophil% 0.7 % (0-1); Eosinophil# 0.38 X10^3/uL; Eosinophils% 3.1 % (0-5); Hemoglobin 11.4 g/dL (12.0-15.0); Lymphocyte # 2.08 X10^3/ul (4.0); Lymphocyte % 17.1 % (19-41); Mean Corp Hgb Conc 32.6 g/dL (32-36); Mean Platelet Vol. 10.5 fl (6.2-12.0); Monocyte# 1.08 X10^3/uL; Monocyte% 8.9 % (0-10); NRBC Flagged by Analyzer 0 % (0-5); Neutrophil # 8.45 X10^3/uL (2.7-7.7); Neutrophil % 69.4 % (47-70); Platelet Count 313 K/mm3 (150-450); RBC Distribution Width CV 13.2 % (11.6-14.6); RBC Distribution Width SD 41.4 fl (35.1-43.9); Red Blood Count 4.07 M/mm3 (4.2-5.4); White Blood Count 12.2 K/mm3 (4.4-11.0)
[2020-01-15 06:11] LABS: Bedside Glucose 100 mg/dL (70-110)
[2020-01-15 06:20] LABS: Anion Gap 5 (5-15); BUN 13 mg/dL (7-18); BUN/Creat Ratio 17.7 RATIO (10-20); Calcium,Total 8.9 mg/dL (8.5-10.1); Chloride 104 mmol/L (98-107); Creatinine, Serum 0.74 mg/dL (0.55-1.02); EST Glomerular Filtration Rate 84 mL/min (>60); Est Glom Filt Rate - Afr Amer 102 mL/min (>60); Estimated Creatinine Clearance 54.44 ml/min; Glucose 89 mg/dL (74-106); Potassium 3.6 mmol/L (3.5-5.1); Sodium Level 140 mmol/L (136-145)
[2020-01-15] MEDS: Lisinopril 10 MG Tablet PO ×2 (07:00→17:48)
[2020-01-15] MEDS: Levothyroxine 125 MCG Tablet PO (07:00)
[2020-01-15] MEDS: amLODIPine 5 MG Tablet PO (07:00)
[2020-01-15] MEDS: Polyethylene Glycol 3350 17 GM PACKET PO (07:00)
[2020-01-15] MEDS: Senna/Docusate Sodium 1 Tablet 2 TABLET PO ×2 (07:00→17:47)
[2020-01-15] MEDS: Anastrozole 1 MG Tablet PO (07:02)
[2020-01-15] MEDS: metFORMIN HCl 500 MG Tablet PO ×2 (08:40)
[2020-01-15] MEDS: Tuberculin,Purif.prot.deriv. 50 TU/ML Vial 5 ML ID (10:44)
[2020-01-15] MEDS: Insulin Lispro 100 UNIT/ML INSULN.PEN 7 UNIT SC (12:53)
[2020-01-15 13:01] LABS: Bedside Glucose 210 mg/dL (70-110)
[2020-01-15 14:04] VITALS: BP 147/89; PULSE 102; RESP 18; TEMP 37.1; O2SAT 91
--- NOTE | 2020-01-15 14:59 | NURSING ---
This nurse is aware of vital signs that were taken this afternoon.
[2020-01-15 16:26] LABS: Bedside Glucose 78 mg/dL (70-110)
[2020-01-15] MEDS: Rivaroxaban 10 MG Tablet PO (17:47)
[2020-01-15 18:21] LABS: Bedside Glucose 160 mg/dL (70-110)
[2020-01-15] MEDS: Acetaminophen 500 MG Tablet 1000 MG PO (19:54)
[2020-01-15 20:06] LABS: Bedside Glucose 173 mg/dL (70-110)
[2020-01-16] MEDS: oxyCODONE 5 MG Tablet PO ×2 (05:50→21:30)
[2020-01-16] MEDS: Acetaminophen 500 MG Tablet 1000 MG PO ×2 (05:50→21:31)
[2020-01-16] MEDS: Anastrozole 1 MG Tablet PO (05:51)
[2020-01-16] MEDS: Lisinopril 10 MG Tablet PO ×2 (05:52→18:05)
[2020-01-16] MEDS: Levothyroxine 125 MCG Tablet PO (05:52)
[2020-01-16] MEDS: amLODIPine 5 MG Tablet PO (05:52)
[2020-01-16 06:36] LABS: Bedside Glucose 103 mg/dL (70-110)
[2020-01-16] MEDS: metFORMIN HCl 500 MG Tablet PO (08:16)
[2020-01-16 10:00] VITALS: PULSE 88; RESP 16
[2020-01-16 11:30] LABS: Bedside Glucose 262 mg/dL (70-110)
[2020-01-16] MEDS: Insulin Lispro 100 UNIT/ML INSULN.PEN 7 UNIT SC ×2 (11:40→18:02)
--- NOTE | 2020-01-16 15:12 | NURSING ---
1510 checked pt's back, some redness noted. pt with no c/o of itching or pain. applied lotion, will monitor. Jason PAGAN
[2020-01-16 15:17] VITALS: BP 129/79; PULSE 90; RESP 18; TEMP 36.9; O2SAT 92
[2020-01-16 16:36] LABS: Bedside Glucose 214 mg/dL (70-110)
[2020-01-16] MEDS: Rivaroxaban 10 MG Tablet PO (18:02)
[2020-01-16 21:05] LABS: Bedside Glucose 123 mg/dL (70-110)
[2020-01-17] MEDS: Anastrozole 1 MG Tablet PO (05:08)
[2020-01-17] MEDS: amLODIPine 5 MG Tablet PO (05:09)
[2020-01-17] MEDS: Levothyroxine 125 MCG Tablet PO (05:09)
[2020-01-17] MEDS: Lisinopril 10 MG Tablet PO ×2 (05:09→16:05)
[2020-01-17] MEDS: Senna/Docusate Sodium 1 Tablet 2 TABLET PO ×2 (05:10→16:05)
[2020-01-17 06:26] LABS: Bedside Glucose 111 mg/dL (70-110)
[2020-01-17] MEDS: metFORMIN HCl 500 MG Tablet PO (08:11)
--- NOTE | 2020-01-17 10:45 | NURSING ---
gema singh called and want xray of RT hip on and will review and notify staff on Friday regarding any new orders and staple removal date/time.
[2020-01-17 10:56] LABS: Bedside Glucose 120 mg/dL (70-110)
[2020-01-17] MEDS: oxyCODONE 5 MG Tablet PO (12:14)
--- NOTE | 2020-01-17 14:25 | PHA.CONS_ITS ---
<NavinAustyn meijai - Last Filed: 01/17/20 14:25> Progress Note - Pharmacy Subjective: TCU Admission Objective: Allergies aspirin Allergy (Unknown, Verified 01/10/20 17:27) Nausea albuterol Adverse Reaction (Verified 01/10/20 17:27) I GET VERY SHAKEY/HYPERVENTILATING Penicillins Adverse Reaction (Verified 01/10/20 17:27) Nausea/Vom/Diarrhea Current Medications Generic Name Dose Route Start Last Admin Trade Name Freq PRN Reason Stop Dose Admin Acetaminophen 1,000 mg 01/14/20 14:20 01/16/20 21:31 Tylenol PO 1,000 mg Q6H PRN Administration Pain Score 1-3/10 Amlodipine Besylate 5 mg 01/15/20 06:00 01/17/20 05:09 Norvasc PO 5 mg DAILY VANNESSA Administration Anastrozole 1 mg 01/15/20 06:00 01/17/20 05:08 Arimidex PO 1 mg DAILY VANNESSA Administration Bisacodyl 10 mg 01/14/20 14:23 Dulcolax PO DAILY PRN Constipation Cholecalciferol 2,000 unit 01/15/20 06:00 01/17/20 05:09 Vitamin D (25mcg) PO 2,000 unit DAILY VANNESSA Administration Hydrocortisone 1 applic 01/17/20 12:51 Hytone TOPICAL TID PRN PRN ITCHING Protocol Insulin Glargine 15 units 01/17/20 22:00 Lantus (Bkc) SC QHS VANNESSA Levothyroxine Sodium 125 mcg 01/15/20 06:00 01/17/20 05:09 Synthroid PO 125 mcg DAILY@0600 VANNESSA Administration Lisinopril 10 mg 01/14/20 18:00 01/17/20 05:09 Zestril PO 10 mg BID VANNESSA Administration Metformin HCl 500 mg 01/15/20 08:00 01/17/20 08:11 Glucophage PO 500 mg DAILYCM VANNESSA Administration Nicotine 21 mg 01/16/20 06:00 01/17/20 05:09 Nicoderm Cq (Pbkc) TRANSDERM. 21 mg DAILY VANNESSA Administration Oxycodone HCl 5 mg 01/14/20 14:21 01/17/20 12:14 Oxyir PO 5 mg Q4H PRN PRN Administration Pain Score 4-10/10 Polyethylene Glycol 17 gm 01/15/20 06:00 01/17/20 05:07 Miralax PO Not Given DAILY VANNESSA Potassium Chloride 40 meq 01/15/20 08:00 01/17/20 08:11 K-Dur PO 40 meq DAILYCM VANNESSA Administration Rivaroxaban 10 mg 01/14/20 17:00 01/16/20 18:02 Xarelto PO 02/15/20 23:59 10 mg DAILY@1700 VANENSSA Administration Senna/Docusate Sodium 2 tablet 01/14/20 18:00 01/17/20 05:10 Senokot-S, Bonny-Colace PO 2 tablet BID VANNESSA Administration Tuberculin PPD 5 tu 01/22/20 10:00 Tubersol, Aplisol, Ppd ID 01/22/20 10:01 X1 ONE Problem List (Last Reviewed 01/10/20 @ 19:[address] Howard Summers, DO) Debility (Acute) Fall (Acute) Sacral fracture (Acute) Stroke (Chronic) Vertigo (Chronic) Osteoarthritis (Chronic) Hypokalemia (Chronic) Marijuana smoker, continuous (Chronic) Vital Signs Temp Pulse Resp BP Pulse Ox 98.5 F 90 18 129/79 H 92 01/16/20 15:17 01/16/20 15:17 01/16/20 15:17 01/16/20 15:17 01/16/20 15:17 Oxygen Delivery Method Room Air Weight: 56.719 kg Body Mass Index (BMI) 24.7 Finger Stick Blood Glucose 181 Sodium 140 mmol/L (136-145) 01/15/20 05:54 Potassium 3.6 mmol/L (3.5-5.1) 01/15/20 05:54 Chloride 104 mmol/L (98-107) 01/15/20 05:54 Carbon Dioxide 31.0 mmol/L (21.0-32.0) 01/15/20 05:54 Anion Gap 5 (5-15) 01/15/20 05:54 BUN 13 mg/dL (7-18) 01/15/20 05:54 Creatinine 0.74 mg/dL (0.55-1.02) 01/15/20 05:54 Est GFR (MDRD) Af Amer 102 mL/min (>60) 01/15/20 05:54 Est GFR (MDRD) Non-Af 84 mL/min (>60) 01/15/20 05:54 BUN/Creatinine Ratio 17.7 RATIO (-20) 01/15/20 05:54 Glucose 89 mg/dL (74-106) 01/15/20 05:54 Assessment/Plan: 1. Pain: acetaminophen 1000mg PO Q6H PRN pain (1-12/13) and oxycodone 5mg PO Q4H PRN pain (4-07/15). Please continue to monitor for increased pain, PRN usage, constipation, and decreased respiratory drive. 2. DVT prophylaxis: rivaroxaban 10mg PO daily with dinner. Please continue to monitor for S/S of bleeding/DVT, hemoglobin and renal function. 3. Breast cancer: anastrozole 1mg PO daily. Please continue to monitor bone mineral density, lipid panel and for GI side effects. 4. Type II Diabetes Mellitus: metformin 500mg PO daily with breakfast and insulin glargine 15units SC QHS. Please continue to monitor blood glucose readings, A1c, renal function, and for S/S of hypo/hyperglycemia. 5. Hypertension: lisinopril 10mg PO BID and amlodipine 5mg PO daily. Please continue to monitor BP, potassium, renal function, and edema. 6. Hypothyroidism: levothyroxine 125mcg PO daily. Please continue to monitor TSH and for S/S of hypo/hyperthyroidism. 7. Hypokalemia: potassium chloride 40mEq PO daily. Please continue to monitor potassium levels. 8. Vitamin D deficiency: cholecalciferol 2000units PO daily. Please continue to monitor vitamin D levels annually as clinically appropriate. 9. Smoking (heavy smoker): nicotine patch 21mg SC daily. Please continue to monitor for skin irritation, vivid dreams, hypertension, and nicotine cravings. Please consider adding nicotine gum 4mg Q2H PRN nicotine cravings if needed. Psychotropic Medications: None Unnecessary Medications: None Bowel Regimen: Miralax 17gm PO daily, senna/docusate 2T PO BID, bisacodyl 10mg P O daily PRN constipation. Patient has refused 2/3 Miralax doses. Please consider changing to daily PRN. Please continue to monitor for constipation and PRN usage. Date of Note:: 01/17/20 - Provider Comments Provider responsibility: Provider responsible to enter orders to implement recommendations <Mj,Maurice Chi - Last Filed: 01/17/20 16:33> Progress Note - Pharmacy Subjective: [] Objective: Allergies aspirin Allergy (Unknown, Verified 01/10/20 17:27) Nausea albuterol Adverse Reaction (Verified 01/10/20 17:27) I GET VERY SHAKEY/HYPERVENTILATING Penicillins Adverse Reaction (Verified 01/10/20 17:27) Nausea/Vom/Diarrhea Current Medications Generic Name Dose Route Start Last Admin Trade Name Freq PRN Reason Stop Dose Admin Acetaminophen 1,000 mg 01/14/20 14:20 01/16/20 21:31 Tylenol PO 1,000 mg Q6H PRN Administration Pain Score 1-3/10 Amlodipine Besylate 5 mg 01/15/20 06:00 01/17/20 05:09 Norvasc PO 5 mg DAILY VANNESSA Administration Anastrozole 1 mg 01/15/20 06:00 01/17/20 05:08 Arimidex PO 1 mg DAILY VANNESSA Administration Bisacodyl 10 mg 01/14/20 14:23 Dulcolax PO DAILY PRN Constipation Cholecalciferol 2,000 unit 01/15/20 06:00 01/17/20 05:09 Vitamin D (25mcg) PO 2,000 unit DAILY VANNESSA Administration Hydrocortisone 1 applic 01/17/20 12:51 Hytone TOPICAL TID PRN PRN ITCHING Protocol Dextrose/Sodium Chloride 1,000 mls @ 60 mls/hr 01/17/20 16:35 IV .[id number] [facility] Insulin Glargine 15 units 01/17/20 22:00 Lantus (Bkc) SC QHS VANNESSA Levothyroxine Sodium 125 mcg 01/15/20 06:00 01/17/20 05:09 Synthroid PO 125 mcg DAILY@0600 VANNESSA Administration Lisinopril 10 mg 01/14/20 18:00 01/17/20 16:05 Zestril PO 10 mg BID VANNESSA Administration Metformin HCl 500 mg 01/15/20 08:00 01/17/20 08:11 Glucophage PO 500 mg DAILYCM VANNESSA Administration Nicotine 21 mg 01/16/20 06:00 01/17/20 05:09 Nicoderm Cq (Pbkc) TRANSDERM. 21 mg DAILY VANNESSA Administration Oxycodone HCl 5 mg 01/14/20 14:21 01/17/20 12:14 Oxyir PO 5 mg Q4H PRN PRN Administration Pain Score 4-1010 Polyethylene Glycol 17 gm 01/15/20 06:00 01/17/20 05:07 Miralax PO Not Given DAILY [facility] Potassium Chloride 40 meq 01/15/20 08:00 01/17/20 08:11 K-Dur PO 40 meq DAILYCM VANNESSA Administration Rivaroxaban 10 mg 01/14/20 17:00 01/17/20 16:05 Xarelto PO 02/15/20 23:59 10 mg DAILY@1700 VANNESSA Administration Senna/Docusate Sodium 2 tablet 01/14/20 18:00 01/17/20 16:05 Senokot-S, Bonny-Colace PO 2 tablet BID VANNESSA Administration Tuberculin PPD 5 tu 01/22/20 10:00 Tubersol, Aplisol, Ppd ID 01/22/20 10:01 X1 ONE Problem List (Last Reviewed 01/10/20 @ 19:[address] Howard uSmmers, DO) Debility (Acute) Fall (Acute) Sacral fracture (Acute) Stroke (Chronic) Vertigo (Chronic) Osteoarthritis (Chronic) Hypokalemia (Chronic) Marijuana smoker, continuous (Chronic) Vital Signs Temp Pulse Resp BP Pulse Ox 98.2 F 95 16 149/99 H 98 01/17/20 14:28 01/17/20 14:28 01/17/20 14:28 01/17/20 14:28 01/17/20 14:28 Oxygen Delivery Method Room Air Weight: 56.719 kg Body Mass Index (BMI) 24.7 Finger Stick Blood Glucose 181 Sodium 140 mmol/L (136-145) 01/15/20 05:54 Potassium 3.6 mmol/L (3.5-5.1) 01/15/20 05:54 Chloride 104 mmol/L (98-107) 01/15/20 05:54 Carbon Dioxide 31.0 mmol/L (21.0-32.0) 01/15/20 05:54 Anion Gap 5 (5-15) 01/15/20 05:54 BUN 13 mg/dL (7-18) 01/15/20 05:54 Creatinine 0.74 mg/dL (0.55-1.02) 01/15/20 05:54 Est GFR (MDRD) Af Amer 102 mL/min (>60) 01/15/20 05:54 Est GFR (MDRD) Non-Af 84 mL/min (>60) 01/15/20 05:54 BUN/Creatinine Ratio 17.7 RATIO (-) 01/15/20 05:54 Glucose 89 mg/dL (74-106) 01/15/20 05:54 Assessment/Plan: Psychotropic Medications: Unnecessary Medications: Bowel Regimen: - Provider Comments Provider responsibility: Provider responsible to enter orders to implement recommendations Provider Comments to Recommendations by Pharmacy: Agree
[2020-01-17 14:28] VITALS: BP 149/99; PULSE 95; RESP 16; TEMP 36.8; O2SAT 98
[2020-01-17] MEDS: Rivaroxaban 10 MG Tablet PO (16:05)
[2020-01-17 16:35] LABS: Bedside Glucose 131 mg/dL (70-110)
--- NOTE | 2020-01-17 16:44 | RAD_ITS ---
STUDY: X-RAY - ABDOMEN/PELVIS REASON FOR EXAM: Female, 64 years old. anorexia TECHNIQUE: Single AP view of the abdomen / pelvis. COMPARISON: None. FINDINGS: Normal visualized lung bases. A pattern suggesting constipation is present. The bowel gas pattern is nonobstructive in appearance. There is no demonstrated free abdominal air. The visualized liver, spleen and kidneys are grossly normal in size and morphology. Pelvic phleboliths. Right femoral hardware. RAD/Abdomen Single View (Portable) IMPRESSION: A pattern suggesting constipation is present. The bowel gas pattern is nonobstructive in appearance. Electronically Signed: Gunnar Campa MD at 17:02 EDT Tel , Service support ,
--- NOTE | 2020-01-17 17:41 | NURSING ---
Addendum entered by Fara Hess 01/18/20 00:08: Pt has only drank about 20cc since it was given to her earlier. Takes lots of encouragement for pt to drink. When pt does take a drink it is a very small sip. Educated pt on importance of drink the full 300ml. Pt said she would work on it more. Resting in bed, call light in reach, PA on. Addendum entered by Sri Kyle 01/17/20 18:40: kub results called to Dr Barker, new order mag citrate 300ml x1. pt aware Original Note: pt w/poor appetite & low blood sugars, Dr Barker aware. new orders for IVF, UA, labs and KUB. pt updated on all.
[2020-01-17 18:14] LABS: Bacteria 0 SEEN /hpf (None Seen); Mucous, Urine 0 SEEN /hpf (<or=2+); Squamous Epithelial Cells - UA 0 SEEN /hpf (5-10)
[2020-01-17 18:15] LABS: Color, Urine Yellow (Yellow); Glucose, Dipstick Normal (Normal); Ketone-Dipstick 5 mg/dl (Negative); Leukocyte Esterase-Dipstick Negative /ul (Negative); Nitrite-Dipstick Negative (Negative); Occult Blood-Urine Negative /ul (Negative); Protein-Dipstick 100 mg/dl (Negative); Urine Bilirubin Dipstick Negative (Negative); Urine Clarity Clear (Clear); Urine Urobilinogen Normal (Normal)
[2020-01-17] MEDS: Dext 5%-0.45% NS 1,000 ML 60 ML IV (18:35)
[2020-01-17] MEDS: 0.9% Saline Lock 10 ML Syringe IV (18:36)
[2020-01-17] MEDS: Magnesium Citrate 300 ML PO (18:38)
[2020-01-17 19:02] LABS: White Blood Cells 0-5 SEEN /hpf (0-5)
[2020-01-17 19:03] LABS: Transitional Epithelial - Ur 0-5 SEEN /hpf (0-5)
[2020-01-17 19:04] LABS: Red Blood Cells-Urine 0-5 SEEN /hpf (0-5)
[2020-01-17 19:08] LABS: Hyaline Cast 0-5 SEEN /lpf (0-5)
[2020-01-17 21:11] LABS: Bedside Glucose 246 mg/dL (70-110)
[2020-01-18] MEDS: oxyCODONE 5 MG Tablet PO ×2 (00:06→17:25)
[2020-01-18] MEDS: amLODIPine 5 MG Tablet PO (05:47)
[2020-01-18] MEDS: Acetaminophen 500 MG Tablet 1000 MG PO ×2 (05:47→20:39)
[2020-01-18] MEDS: Senna/Docusate Sodium 1 Tablet 2 TABLET PO ×2 (05:47→16:24)
[2020-01-18] MEDS: Polyethylene Glycol 3350 17 GM PACKET PO (05:47)
[2020-01-18] MEDS: Menthol/Lanolin/Calamine/Znox 113 GM Tube 1 APPLIC TOPICAL ×2 (05:47→20:39)
[2020-01-18] MEDS: Levothyroxine 125 MCG Tablet PO (05:47)
[2020-01-18] MEDS: Lisinopril 10 MG Tablet PO ×2 (05:47→16:24)
[2020-01-18] MEDS: Anastrozole 1 MG Tablet PO (05:47)
[2020-01-18 05:54] LABS: Absolute Lymphocyte Count 3.15 X10^3/uL (0.83-4.51); Basophil# 0.05 X10^3/uL; Basophil% 0.5 % (0-1); Eosinophil# 0.47 X10^3/uL; Eosinophils% 4.4 % (0-5); Hematocrit 33.7 % (37-47); Hemoglobin 10.6 g/dL (12.0-15.0); Lymphocyte # 3.15 X10^3/ul (4.0); Lymphocyte % 29.2 % (19-41); Mean Corp Hgb Conc 31.5 g/dL (32-36); Mean Corpuscular Hgb 27.2 pg (27.0-32.0); Mean Corpuscular Volume 86.4 fL (81-99); Mean Platelet Vol. 10.4 fl (6.2-12.0); Monocyte# 0.95 X10^3/uL; Monocyte% 8.8 % (0-10); NRBC Flagged by Analyzer 0 % (0-5); Neutrophil % 55.4 % (47-70); Platelet Count 374 K/mm3 (150-450); RBC Distribution Width CV 13.8 % (11.6-14.6); White Blood Count 10.8 K/mm3 (4.4-11.0)
[2020-01-18 06:10] LABS: Bedside Glucose 210 mg/dL (70-110)
[2020-01-18 06:13] LABS: Anion Gap 5 (5-15); BUN 16 mg/dL (7-18); BUN/Creat Ratio 19.8 RATIO (10-20); Calcium,Total 8.3 mg/dL (8.5-10.1); Chloride 103 mmol/L (98-107); Creatinine, Serum 0.81 mg/dL (0.55-1.02); EST Glomerular Filtration Rate 75 mL/min (>60); Est Glom Filt Rate - Afr Amer 91 mL/min (>60); Estimated Creatinine Clearance 49.74 ml/min; Glucose 210 mg/dL (74-106); Sodium Level 136 mmol/L (136-145)
[2020-01-18] MEDS: metFORMIN HCl 500 MG Tablet PO (07:51)
[2020-01-18 10:45] LABS: Bedside Glucose 369 mg/dL (70-110)
[2020-01-18] MEDS: Hydrocortisone 2.5% Crm 1 APPLIC TOPICAL (11:17)
[2020-01-18] MEDS: Insulin Lispro 100 UNIT/ML INSULN.PEN 10 UNIT SC (11:32)
[2020-01-18 14:31] VITALS: BP 122/70; PULSE 87; RESP 18; TEMP 36.8; O2SAT 94
--- NOTE | 2020-01-18 15:47 | CHAPLAIN ---
Type of Pastoral Visit _x__ Initial Visit ___ Follow-up Visit ___ On-call Visit ___ General Patient Visit ___ Spiritual Assessment ___ Family Conference ___ Bereavement ___ Rapid Response ___ Code Blue ___ Other (describe below) Pastoral Care Referral From _x__ Patient ___ Family ___ Nurse ___ Physician ___ Automatic Embroidery Machine Tender ___ Systems Analyst Developer ___ Other (describe below) Sacrament/Intervention _x__ Active listening ___ Anointing ___ Confucianist ___ Bereavement ___ Communion _x__ Tessie exploration ___ ___ Life review _x__ Prayer ___ Reconciliation ___ Sacrament of Sick _x__ Supportive presence ___ Wedding ___ Other (describe below) Pastoral Comments patient is welcoming of spiritual care and support; pt says she relies on the hand of God
[2020-01-18] MEDS: Rivaroxaban 10 MG Tablet PO (16:24)
[2020-01-18 16:25] LABS: Bedside Glucose 121 mg/dL (70-110)
[2020-01-18] MEDS: Insulin Lispro 100 UNIT/ML INSULN.PEN SC (17:26)
--- NOTE | 2020-01-18 18:57 | NURSING ---
SSE given per order, pt had one loose med stool today, small flecks of soft stool noted. pt did not hold fluid well.
--- NOTE | 2020-01-18 19:19 | NURSING ---
Mepilex to RT hip incisions removed, teddy intact, no drng noted, Left JAVED.
[2020-01-18 21:36] LABS: Bedside Glucose 111 mg/dL (70-110)
[2020-01-19] MEDS: oxyCODONE 5 MG Tablet PO ×4 (01:11→21:45)
[2020-01-19] MEDS: Anastrozole 1 MG Tablet PO (05:53)
[2020-01-19] MEDS: Senna/Docusate Sodium 1 Tablet 2 TABLET PO ×2 (05:53→16:48)
[2020-01-19] MEDS: Polyethylene Glycol 3350 17 GM PACKET PO (05:53)
[2020-01-19] MEDS: Lisinopril 10 MG Tablet PO ×2 (05:54→16:48)
[2020-01-19] MEDS: amLODIPine 5 MG Tablet PO (05:54)
[2020-01-19] MEDS: Levothyroxine 125 MCG Tablet PO (05:54)
[2020-01-19] MEDS: Menthol/Lanolin/Calamine/Znox 113 GM Tube 1 APPLIC TOPICAL ×2 (05:59→21:47)
[2020-01-19 06:26] LABS: Bedside Glucose 134 mg/dL (70-110)
[2020-01-19] MEDS: Insulin Lispro 100 UNIT/ML INSULN.PEN SC ×3 (07:43→17:34)
[2020-01-19] MEDS: metFORMIN HCl 500 MG Tablet PO (07:43)
--- NOTE | 2020-01-19 10:17 | CASEMGMT ---
Social Work Met with pt to for care plan meeting. Attempted to call , no answer. Pt is able to do bed mobility, transfers and ambulation at CGA. Pt is able to walk 30ft with FWW at CGA, but has difficulty maintaining TTWBS on rt LE. Pt is able to do UE ADLS set-up, supervised and seated at SBA. Pt is able to do LE bathing and toilet transfers at min assist and LE dressing and clothing management at mod assist. Pt is reading books, playing cards, watching TV for activities. Pt had IV fluids on 01/16 and is on 1800 calorie diet. Pt is eating 50-74% of meals that are small portions and dietary is recommending appetite stimulant-pt agreeable. Pt urine culture came back negative and is having an x-ray done on 01/19 to determine when to get teddy removed. Explained insurance to pt, NRD 01/23. Pt states will be able to assist at home upon DC. Pt requesting new bed, stating bed is uncomfortable, f/u with maintenance and nursing to get bed replaced. Will continue to follow. Francie Ibanez, social work tech intern Denisha Cadet, CONCERT OR LECTURE HALL MANAGER HYPERION ADMINISTRATOR
[2020-01-19 11:16] LABS: Bedside Glucose 205 mg/dL (70-110)
[2020-01-19 13:33] VITALS: BP 137/80; PULSE 84; RESP 20; TEMP 36.8; O2SAT 96
[2020-01-19] MEDS: Rivaroxaban 10 MG Tablet PO (16:49)
[2020-01-19 17:15] LABS: Bedside Glucose 136 mg/dL (70-110)
[2020-01-19 20:16] LABS: Bedside Glucose 162 mg/dL (70-110)
[2020-01-20] MEDS: oxyCODONE 5 MG Tablet PO ×2 (05:12→22:22)
[2020-01-20] MEDS: Levothyroxine 125 MCG Tablet PO (05:13)
[2020-01-20] MEDS: Lisinopril 10 MG Tablet PO ×2 (05:14→18:08)
[2020-01-20] MEDS: Anastrozole 1 MG Tablet PO (05:14)
[2020-01-20] MEDS: Senna/Docusate Sodium 1 Tablet 2 TABLET PO ×2 (05:14→18:07)
[2020-01-20] MEDS: amLODIPine 5 MG Tablet PO (05:14)
[2020-01-20] MEDS: Polyethylene Glycol 3350 17 GM PACKET PO (05:14)
[2020-01-20] MEDS: Menthol/Lanolin/Calamine/Znox 113 GM Tube 1 APPLIC TOPICAL ×2 (05:21→22:24)
[2020-01-20 06:16] LABS: Bedside Glucose 118 mg/dL (70-110)
--- NOTE | 2020-01-20 08:25 | RAD_ITS ---
STUDY: X-RAY - PELVIS AND RIGHT HIP REASON FOR EXAM: Female, 64 years old. RECENT HIP SURGERY TECHNIQUE: 3 views of the pelvis and hip. COMPARISON: None. FINDINGS: There is a non-specific bowel gas pattern. Normal visualized soft tissue structures. There is narrowing with cortical sclerosis and osteophyte formation of the sacroiliac joint consistent with degenerative osteoarthritic changes. Normal bilateral superior and inferior pubic rami. There are degenerative changes of the pubic symphysis with articular narrowing and sclerosis. Normal bilateral ischial tuberosities. There is internal fixation of a right femoral neck fracture in good alignment. RAD/HIP, UNI W/ Pelvis 2-3 Views IMPRESSION: There is internal fixation of a right femoral neck fracture in good alignment. Electronically Signed: Tori Elmore, at 10:23 EDT Tel , Service support ,
[2020-01-20] MEDS: Insulin Lispro 100 UNIT/ML INSULN.PEN SC ×3 (08:46→18:08)
[2020-01-20] MEDS: metFORMIN HCl 500 MG Tablet PO (08:46)
[2020-01-20 11:05] LABS: Bedside Glucose 149 mg/dL (70-110)
--- NOTE | 2020-01-20 11:55 | NURSING ---
Pain interview for muna 01/21/20 completed.
[2020-01-20] MEDS: 0.9% Saline Lock 10 ML Syringe IV ×2 (13:09→22:26)
[2020-01-20 15:27] VITALS: BP 122/69; PULSE 84; RESP 17; TEMP 36.8; O2SAT 96
[2020-01-20 16:30] LABS: Bedside Glucose 131 mg/dL (70-110)
[2020-01-20] MEDS: Rivaroxaban 10 MG Tablet PO (18:08)
[2020-01-20 21:31] LABS: Bedside Glucose 78 mg/dL (70-110)
[2020-01-20 22:31] LABS: Bedside Glucose 139 mg/dL (70-110)
--- NOTE | 2020-01-21 01:01 | NURSING ---
Nicotine patch intact to rt shoulder.
[2020-01-21] MEDS: Senna/Docusate Sodium 1 Tablet 2 TABLET PO (06:05)
[2020-01-21] MEDS: Lisinopril 10 MG Tablet PO ×2 (06:05→15:38)
[2020-01-21] MEDS: amLODIPine 5 MG Tablet PO (06:05)
[2020-01-21 06:06] LABS: Bedside Glucose 95 mg/dL (70-110)
[2020-01-21] MEDS: Anastrozole 1 MG Tablet PO (06:06)
[2020-01-21] MEDS: Levothyroxine 125 MCG Tablet PO (06:06)
[2020-01-21] MEDS: Polyethylene Glycol 3350 17 GM PACKET PO (06:06)
[2020-01-21] MEDS: Menthol/Lanolin/Calamine/Znox 113 GM Tube 1 APPLIC TOPICAL ×2 (06:09→21:12)
[2020-01-21] MEDS: oxyCODONE 5 MG Tablet PO (06:12)
[2020-01-21] MEDS: metFORMIN HCl 500 MG Tablet PO (08:52)
[2020-01-21] MEDS: 0.9% Saline Lock 10 ML Syringe IV (08:55)
[2020-01-21 11:16] LABS: Bedside Glucose 223 mg/dL (70-110)
--- NOTE | 2020-01-21 11:59 | NURSING ---
xray faxed to DR Smallwood, reviewed and then called with orders to DC teddy 12-14 days, ok to shower as long as incision healing & no drng. F/U in 1 month via telehealth.
[2020-01-21 12:02] VITALS: PULSE 84; RESP 16; O2SAT 94
[2020-01-21 13:30] VITALS: BP 133/83; PULSE 90; RESP 14; TEMP 36.7; O2SAT 99
--- NOTE | 2020-01-21 15:29 | CHAPLAIN ---
Type of Pastoral Visit ___ Initial Visit _x__ Follow-up Visit ___ On-call Visit ___ General Patient Visit ___ Spiritual Assessment ___ Family Conference ___ Bereavement ___ Rapid Response ___ Code Blue ___ Other (describe below) Pastoral Care Referral From _x__ Patient ___ Family ___ Nurse ___ Physician ___ Hotel Front Desk Clerk ___ Auto Dismantler ___ Other (describe below) Sacrament/Intervention _x__ Active listening ___ Anointing ___ Restoration ___ Bereavement ___ Communion _x__ Tessie exploration ___ ___ Life review _x__ Prayer ___ Reconciliation ___ Sacrament of Sick _x__ Supportive presence ___ Wedding ___ Other (describe below) Pastoral Comments
[2020-01-21] MEDS: Rivaroxaban 10 MG Tablet PO (15:38)
[2020-01-21 16:11] LABS: Bedside Glucose 190 mg/dL (70-110)
[2020-01-21 21:11] LABS: Bedside Glucose 171 mg/dL (70-110)
[2020-01-22] MEDS: Polyethylene Glycol 3350 17 GM PACKET PO (05:40)
[2020-01-22] MEDS: 0.9% Saline Lock 10 ML Syringe IV (05:40)
[2020-01-22] MEDS: oxyCODONE 5 MG Tablet PO ×3 (05:40→20:29)
[2020-01-22] MEDS: Senna/Docusate Sodium 1 Tablet 2 TABLET PO (05:41)
[2020-01-22] MEDS: Lisinopril 10 MG Tablet PO ×2 (05:41→17:39)
[2020-01-22] MEDS: Anastrozole 1 MG Tablet PO (05:41)
[2020-01-22] MEDS: Menthol/Lanolin/Calamine/Znox 113 GM Tube 1 APPLIC TOPICAL ×2 (05:41→20:30)
[2020-01-22] MEDS: amLODIPine 5 MG Tablet PO (05:41)
[2020-01-22] MEDS: Levothyroxine 125 MCG Tablet PO (05:42)
[2020-01-22 06:31] LABS: Bedside Glucose 77 mg/dL (70-110)
[2020-01-22] MEDS: metFORMIN HCl 500 MG Tablet PO (08:33)
[2020-01-22 10:00] VITALS: PULSE 88; RESP 16; O2SAT 93
[2020-01-22] MEDS: Tuberculin,Purif.prot.deriv. 50 TU/ML Vial 5 ML ID (10:47)
[2020-01-22 10:56] LABS: Bedside Glucose 146 mg/dL (70-110)
[2020-01-22 15:15] VITALS: BP 131/80; PULSE 86; RESP 18; TEMP 36.8; O2SAT 98
[2020-01-22 16:51] LABS: Bedside Glucose 164 mg/dL (70-110)
[2020-01-22] MEDS: Rivaroxaban 10 MG Tablet PO (17:39)
[2020-01-22 21:51] LABS: Bedside Glucose 183 mg/dL (70-110)
[2020-01-23] MEDS: amLODIPine 5 MG Tablet PO (05:33)
[2020-01-23] MEDS: Lisinopril 10 MG Tablet PO ×2 (05:33→17:43)
[2020-01-23] MEDS: Levothyroxine 125 MCG Tablet PO (05:33)
[2020-01-23] MEDS: Anastrozole 1 MG Tablet PO (05:34)
[2020-01-23] MEDS: Menthol/Lanolin/Calamine/Znox 113 GM Tube 1 APPLIC TOPICAL ×2 (05:34→19:54)
[2020-01-23 06:21] LABS: Bedside Glucose 84 mg/dL (70-110)
[2020-01-23] MEDS: metFORMIN HCl 500 MG Tablet PO (07:53)
[2020-01-23] MEDS: oxyCODONE 5 MG Tablet PO ×2 (10:50→19:48)
[2020-01-23 11:01] LABS: Bedside Glucose 220 mg/dL (70-110)
[2020-01-23 14:24] VITALS: BP 110/61; PULSE 87; RESP 16; TEMP 37.2; O2SAT 95
[2020-01-23 15:36] LABS: Bedside Glucose 150 mg/dL (70-110)
[2020-01-23] MEDS: Rivaroxaban 10 MG Tablet PO (17:43)
[2020-01-23 21:05] LABS: Bedside Glucose 211 mg/dL (70-110)
--- NOTE | 2020-01-23 21:35 | NURSING ---
Nicotine patch intact to rt upper arm.
[2020-01-24] MEDS: oxyCODONE 5 MG Tablet PO ×3 (05:10→19:00)
[2020-01-24] MEDS: Menthol/Lanolin/Calamine/Znox 113 GM Tube 1 APPLIC TOPICAL ×2 (05:12→21:07)
[2020-01-24] MEDS: Levothyroxine 125 MCG Tablet PO (05:12)
[2020-01-24] MEDS: Lisinopril 10 MG Tablet PO ×2 (05:12→17:21)
[2020-01-24] MEDS: Anastrozole 1 MG Tablet PO (05:12)
[2020-01-24] MEDS: amLODIPine 5 MG Tablet PO (05:12)
[2020-01-24] MEDS: metFORMIN HCl 500 MG Tablet PO (08:09)
[2020-01-24 10:26] LABS: Bedside Glucose 81 mg/dL (70-110)
[2020-01-24 11:25] LABS: Bedside Glucose 193 mg/dL (70-110)
[2020-01-24 16:35] LABS: Bedside Glucose 147 mg/dL (70-110)
[2020-01-24 16:38] VITALS: BP 123/62; PULSE 78; RESP 14; TEMP 36.8; O2SAT 93
[2020-01-24] MEDS: Rivaroxaban 10 MG Tablet PO (17:20)
[2020-01-24] MEDS: Acetaminophen 500 MG Tablet 1000 MG PO (21:04)
[2020-01-24] MEDS: Mirtazapine 15 MG Tablet 7.5 MG PO (21:06)
[2020-01-24 21:46] LABS: Bedside Glucose 181 mg/dL (70-110)
--- NOTE | 2020-01-24 22:30 | NURSING ---
Nicotine patch intact to lt deltoid.
[2020-01-25] MEDS: oxyCODONE 5 MG Tablet PO ×2 (05:24→20:40)
[2020-01-25] MEDS: Lisinopril 10 MG Tablet PO ×2 (05:25→17:30)
[2020-01-25] MEDS: amLODIPine 5 MG Tablet PO (05:25)
[2020-01-25] MEDS: Anastrozole 1 MG Tablet PO (05:25)
[2020-01-25] MEDS: Senna/Docusate Sodium 1 Tablet 2 TABLET PO ×2 (05:25→17:30)
[2020-01-25] MEDS: Polyethylene Glycol 3350 17 GM PACKET PO (05:26)
[2020-01-25] MEDS: Levothyroxine 125 MCG Tablet PO (05:27)
[2020-01-25] MEDS: Menthol/Lanolin/Calamine/Znox 113 GM Tube 1 APPLIC TOPICAL ×2 (05:32→20:43)
[2020-01-25 05:33] VITALS: BP 116/76; PULSE 66
[2020-01-25 06:31] LABS: Bedside Glucose 113 mg/dL (70-110)
[2020-01-25] MEDS: metFORMIN HCl 500 MG Tablet PO (08:51)
[2020-01-25] MEDS: Acetaminophen 500 MG Tablet 1000 MG PO (08:59)
--- NOTE | 2020-01-25 09:46 | MDS.RN ---
Information for the mds was obtained from review of the clinical record, interview of resident, staff, and direct observation of resident's care.
[2020-01-25 10:51] LABS: Bedside Glucose 236 mg/dL (70-110)
[2020-01-25 14:16] VITALS: BP 96/59; PULSE 77; RESP 18; TEMP 37.2; O2SAT 92
[2020-01-25 16:01] LABS: Bedside Glucose 183 mg/dL (70-110)
[2020-01-25] MEDS: Rivaroxaban 10 MG Tablet PO (17:30)
[2020-01-25 17:32] VITALS: BP 113/74; PULSE 81
[2020-01-25 18:39] LABS: Bacteria 0 SEEN /hpf (None Seen); Mucous, Urine 0 SEEN /hpf (<or=2+); Squamous Epithelial Cells - UA 0 SEEN /hpf (5-10)
[2020-01-25 18:43] LABS: Color, Urine Yellow (Yellow); Glucose, Dipstick Normal (Normal); Ketone-Dipstick Negative (Negative); Leukocyte Esterase-Dipstick 500 /ul (Negative); Nitrite-Dipstick Negative (Negative); Occult Blood-Urine 250 /ul (Negative); Protein-Dipstick 500 mg/dl (Negative); Urine Bilirubin Dipstick Negative (Negative); Urine Clarity Cloudy (Clear); Urine Urobilinogen Normal (Normal)
[2020-01-25 18:49] LABS: Red Blood Cells-Urine 0-5 SEEN /hpf (0-5)
[2020-01-25 18:50] LABS: White Blood Cells >100 SEEN /hpf (0-5)
[2020-01-25] MEDS: Mirtazapine 15 MG Tablet 7.5 MG PO (20:44)
[2020-01-25 21:06] LABS: Bedside Glucose 208 mg/dL (70-110)
[2020-01-25] MEDS: Ciprofloxacin 250 MG Tablet PO (21:21)
[2020-01-26 05:10] VITALS: BP 132/76; PULSE 85
[2020-01-26] MEDS: Senna/Docusate Sodium 1 Tablet 2 TABLET PO ×2 (05:11→16:33)
[2020-01-26] MEDS: Anastrozole 1 MG Tablet PO (05:11)
[2020-01-26] MEDS: Ciprofloxacin 250 MG Tablet PO ×2 (05:11→16:32)
[2020-01-26] MEDS: oxyCODONE 5 MG Tablet PO ×2 (05:11→21:20)
[2020-01-26] MEDS: Levothyroxine 125 MCG Tablet PO (05:12)
[2020-01-26] MEDS: amLODIPine 5 MG Tablet PO (05:12)
[2020-01-26] MEDS: Lisinopril 10 MG Tablet PO ×2 (05:12→16:32)
[2020-01-26] MEDS: Polyethylene Glycol 3350 17 GM PACKET PO (05:12)
[2020-01-26] MEDS: Menthol/Lanolin/Calamine/Znox 113 GM Tube 1 APPLIC TOPICAL ×2 (05:21→21:23)
[2020-01-26 06:06] LABS: Bedside Glucose 104 mg/dL (70-110)
[2020-01-26] MEDS: metFORMIN HCl 500 MG Tablet PO (08:24)
[2020-01-26 08:35] VITALS: PULSE 92; RESP 18; O2SAT 94
[2020-01-26 11:00] LABS: Bedside Glucose 162 mg/dL (70-110)
[2020-01-26 13:44] VITALS: BP 141/63; PULSE 86; RESP 18; TEMP 36.9; O2SAT 95
[2020-01-26 16:31] LABS: Bedside Glucose 146 mg/dL (70-110)
[2020-01-26] MEDS: Rivaroxaban 10 MG Tablet PO (16:32)
--- NOTE | 2020-01-26 16:42 | NURSING ---
pt requesting to lay down in bed, assisted pt from recliner to bed, asked pt if she would like to go to [facility] and pt stated no this nurse noted that pt attends soaked. pt attends changed, pericare provided.
[2020-01-26 21:16] LABS: Bedside Glucose 144 mg/dL (70-110)
[2020-01-26] MEDS: Mirtazapine 15 MG Tablet 7.5 MG PO (21:22)
[2020-01-27] MEDS: oxyCODONE 5 MG Tablet PO ×3 (04:00→20:48)
[2020-01-27 05:35] VITALS: BP 143/75; PULSE 75
[2020-01-27] MEDS: Polyethylene Glycol 3350 17 GM PACKET PO (05:37)
[2020-01-27] MEDS: Lisinopril 10 MG Tablet PO ×2 (05:38→16:30)
[2020-01-27] MEDS: Anastrozole 1 MG Tablet PO (05:38)
[2020-01-27] MEDS: Ciprofloxacin 250 MG Tablet PO ×2 (05:39→16:30)
[2020-01-27] MEDS: Senna/Docusate Sodium 1 Tablet 2 TABLET PO (05:39)
[2020-01-27] MEDS: Levothyroxine 125 MCG Tablet PO (05:39)
[2020-01-27] MEDS: amLODIPine 5 MG Tablet PO (05:39)
[2020-01-27] MEDS: Menthol/Lanolin/Calamine/Znox 113 GM Tube 1 APPLIC TOPICAL ×2 (05:46→20:50)
[2020-01-27 06:11] LABS: Bedside Glucose 101 mg/dL (70-110)
[2020-01-27] MEDS: metFORMIN HCl 500 MG Tablet PO (08:58)
[2020-01-27 11:01] LABS: Bedside Glucose 244 mg/dL (70-110)
[2020-01-27] MEDS: Acetaminophen 500 MG Tablet 1000 MG PO (13:08)
[2020-01-27 13:56] VITALS: BP 107/61; PULSE 83; RESP 16; TEMP 36.8; O2SAT 94
[2020-01-27 16:15] LABS: Bedside Glucose 209 mg/dL (70-110)
[2020-01-27] MEDS: Rivaroxaban 10 MG Tablet PO (16:33)
[2020-01-27] MEDS: Mirtazapine 15 MG Tablet 7.5 MG PO (20:48)
[2020-01-27 21:36] LABS: Bedside Glucose 208 mg/dL (70-110)
[2020-01-28] MEDS: oxyCODONE 5 MG Tablet PO ×3 (03:35→21:13)
[2020-01-28] MEDS: Senna/Docusate Sodium 1 Tablet 2 TABLET PO (05:53)
[2020-01-28] MEDS: amLODIPine 5 MG Tablet PO (05:53)
[2020-01-28] MEDS: Ciprofloxacin 250 MG Tablet PO ×2 (05:53→18:05)
[2020-01-28] MEDS: Levothyroxine 125 MCG Tablet PO (05:53)
[2020-01-28] MEDS: Menthol/Lanolin/Calamine/Znox 113 GM Tube 1 APPLIC TOPICAL ×2 (05:53→21:14)
[2020-01-28] MEDS: Anastrozole 1 MG Tablet PO (05:53)
[2020-01-28] MEDS: Polyethylene Glycol 3350 17 GM PACKET PO (05:53)
[2020-01-28] MEDS: Lisinopril 10 MG Tablet PO ×2 (05:53→18:05)
[2020-01-28 06:16] LABS: Bedside Glucose 156 mg/dL (70-110)
[2020-01-28] MEDS: metFORMIN HCl 500 MG Tablet PO (08:24)
[2020-01-28 11:15] LABS: Bedside Glucose 170 mg/dL (70-110)
[2020-01-28 14:26] VITALS: BP 133/71; PULSE 80; RESP 18; TEMP 36.9; O2SAT 98
[2020-01-28 17:50] LABS: Bedside Glucose 152 mg/dL (70-110)
[2020-01-28] MEDS: Rivaroxaban 10 MG Tablet PO (18:05)
[2020-01-28 21:10] LABS: Bedside Glucose 160 mg/dL (70-110)
[2020-01-28] MEDS: Mirtazapine 15 MG Tablet 7.5 MG PO (21:13)
[2020-01-29] MEDS: amLODIPine 5 MG Tablet PO (05:20)
[2020-01-29] MEDS: Lisinopril 10 MG Tablet PO ×2 (05:20→17:39)
[2020-01-29] MEDS: Senna/Docusate Sodium 1 Tablet 2 TABLET PO ×2 (05:20→17:40)
[2020-01-29] MEDS: Polyethylene Glycol 3350 17 GM PACKET PO (05:20)
[2020-01-29] MEDS: Ciprofloxacin 250 MG Tablet PO ×2 (05:21→17:40)
[2020-01-29] MEDS: Menthol/Lanolin/Calamine/Znox 113 GM Tube 1 APPLIC TOPICAL ×2 (05:21→21:22)
[2020-01-29] MEDS: Levothyroxine 125 MCG Tablet PO (05:21)
[2020-01-29] MEDS: Anastrozole 1 MG Tablet PO (05:21)
[2020-01-29] MEDS: oxyCODONE 5 MG Tablet PO ×3 (05:24→21:20)
[2020-01-29 06:26] LABS: Bedside Glucose 104 mg/dL (70-110)
[2020-01-29] MEDS: metFORMIN HCl 500 MG Tablet PO (08:40)
[2020-01-29 10:06] VITALS: PULSE 80; RESP 18; O2SAT 92
[2020-01-29 11:01] LABS: Bedside Glucose 189 mg/dL (70-110)
[2020-01-29 14:14] VITALS: BP 104/74; PULSE 82; RESP 17; TEMP 36.4; O2SAT 98
[2020-01-29 16:46] LABS: Bedside Glucose 145 mg/dL (70-110)
[2020-01-29] MEDS: Rivaroxaban 10 MG Tablet PO (17:40)
[2020-01-29 21:16] LABS: Bedside Glucose 175 mg/dL (70-110)
[2020-01-29] MEDS: Mirtazapine 15 MG Tablet 7.5 MG PO (21:20)
[2020-01-30] MEDS: Polyethylene Glycol 3350 17 GM PACKET PO (05:30)
[2020-01-30] MEDS: oxyCODONE 5 MG Tablet PO (05:30)
[2020-01-30] MEDS: amLODIPine 5 MG Tablet PO (05:30)
[2020-01-30] MEDS: Senna/Docusate Sodium 1 Tablet 2 TABLET PO ×2 (05:30→17:25)
[2020-01-30] MEDS: Levothyroxine 125 MCG Tablet PO (05:30)
[2020-01-30] MEDS: Anastrozole 1 MG Tablet PO (05:30)
[2020-01-30] MEDS: Ciprofloxacin 250 MG Tablet PO ×2 (05:30→17:25)
[2020-01-30] MEDS: Lisinopril 10 MG Tablet PO ×2 (05:30→17:25)
[2020-01-30] MEDS: Menthol/Lanolin/Calamine/Znox 113 GM Tube 1 APPLIC TOPICAL ×2 (05:33→21:37)
[2020-01-30 06:05] LABS: Bedside Glucose 141 mg/dL (70-110)
[2020-01-30] MEDS: metFORMIN HCl 500 MG Tablet PO (08:52)
[2020-01-30 11:01] LABS: Bedside Glucose 187 mg/dL (70-110)
[2020-01-30 14:17] VITALS: BP 119/64; PULSE 81; RESP 18; TEMP 36.9; O2SAT 94
[2020-01-30 16:45] LABS: Bedside Glucose 180 mg/dL (70-110)
[2020-01-30] MEDS: Rivaroxaban 10 MG Tablet PO (17:25)
[2020-01-30 19:25] VITALS: PULSE 75; O2SAT 98
[2020-01-30 21:30] LABS: Bedside Glucose 214 mg/dL (70-110)
[2020-01-30] MEDS: Mirtazapine 15 MG Tablet 7.5 MG PO (21:36)
[2020-01-31] MEDS: Levothyroxine 125 MCG Tablet PO (06:07)
[2020-01-31] MEDS: oxyCODONE 5 MG Tablet PO ×3 (06:07→21:07)
[2020-01-31] MEDS: Polyethylene Glycol 3350 17 GM PACKET PO (06:07)
[2020-01-31] MEDS: Lisinopril 10 MG Tablet PO ×2 (06:07→17:44)
[2020-01-31] MEDS: amLODIPine 5 MG Tablet PO (06:07)
[2020-01-31] MEDS: Anastrozole 1 MG Tablet PO (06:07)
[2020-01-31] MEDS: Senna/Docusate Sodium 1 Tablet 2 TABLET PO ×2 (06:07→17:44)
[2020-01-31] MEDS: Ciprofloxacin 250 MG Tablet PO ×2 (06:08→17:44)
[2020-01-31] MEDS: Menthol/Lanolin/Calamine/Znox 113 GM Tube 1 APPLIC TOPICAL ×2 (06:11→21:11)
[2020-01-31 06:21] LABS: Bedside Glucose 159 mg/dL (70-110)
[2020-01-31] MEDS: metFORMIN HCl 500 MG Tablet PO (08:03)
[2020-01-31 10:00] VITALS: PULSE 84; RESP 16; O2SAT 96
[2020-01-31 11:31] LABS: Bedside Glucose 220 mg/dL (70-110)
[2020-01-31 15:17] VITALS: BP 108/66; PULSE 79; RESP 16; TEMP 36.8; O2SAT 93
[2020-01-31 16:21] LABS: Bedside Glucose 248 mg/dL (70-110)
--- NOTE | 2020-01-31 16:26 | CHAPLAIN ---
Type of Pastoral Visit ___ Initial Visit _x__ Follow-up Visit ___ On-call Visit ___ General Patient Visit ___ Spiritual Assessment ___ Family Conference ___ Bereavement ___ Rapid Response ___ Code Blue ___ Other (describe below) Pastoral Care Referral From _x__ Patient ___ Family ___ Nurse ___ Physician ___ Housekeeper Caregiver ___ Welt Rougher ___ Other (describe below) Sacrament/Intervention _x__ Active listening ___ Anointing ___ Cheondoism ___ Bereavement ___ Communion _x__ Tessie exploration ___ ___ Life review _x__ Prayer ___ Reconciliation ___ Sacrament of Sick _x__ Supportive presence ___ Wedding ___ Other (describe below) Pastoral Comments patient likes to talk about her tessie in God and about her family
[2020-01-31] MEDS: Rivaroxaban 10 MG Tablet PO (17:44)
[2020-01-31] MEDS: Mirtazapine 15 MG Tablet 7.5 MG PO (21:09)
[2020-01-31 21:11] LABS: Bedside Glucose 245 mg/dL (70-110)
[2020-02-01 05:41] VITALS: BP 146/76; PULSE 84
[2020-02-01] MEDS: Anastrozole 1 MG Tablet PO (05:43)
[2020-02-01] MEDS: Ciprofloxacin 250 MG Tablet PO ×2 (05:43→18:10)
[2020-02-01] MEDS: Levothyroxine 125 MCG Tablet PO (05:43)
[2020-02-01] MEDS: Lisinopril 10 MG Tablet PO ×2 (05:43→18:10)
[2020-02-01] MEDS: amLODIPine 5 MG Tablet PO (05:43)
[2020-02-01] MEDS: Menthol/Lanolin/Calamine/Znox 113 GM Tube 1 APPLIC TOPICAL ×2 (05:46→22:03)
--- NOTE | 2020-02-01 05:46 | NURSING ---
Old Nicotine patch removed from rt deltoid, new one applied to lt deltoid.
[2020-02-01 06:25] LABS: Bedside Glucose 103 mg/dL (70-110)
[2020-02-01] MEDS: metFORMIN HCl 500 MG Tablet PO (08:20)
[2020-02-01 11:30] LABS: Bedside Glucose 152 mg/dL (70-110)
--- NOTE | 2020-02-01 13:53 | CASEMGMT ---
Social Work Spoke with the to discuss discharge plans. Inquired what the pt would need to do for to care for her at home. 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 Explained pt's current level of functioning. stated if she had to come DC home now, he could 'make it work' and they would all care for her. Pt has a FWW and can do 3 steps to get inside the home. Pt is requiring min-max assist for ADLs, walking 100 ft CGA while maintaining TTWBS. IDT recommending continued therapy, but explained insurance to provide 24 hour notice to DC. understands. Will continue to follow. Denisha Cadet, MOLD POLISHER SOLAR INSTALLATION MANAGER
[2020-02-01 15:15] VITALS: BP 103/68; PULSE 91; RESP 16; TEMP 36.6; O2SAT 95
[2020-02-01] MEDS: oxyCODONE 5 MG Tablet PO (15:21)
[2020-02-01 17:16] LABS: Bedside Glucose 152 mg/dL (70-110)
[2020-02-01] MEDS: Rivaroxaban 10 MG Tablet PO (18:10)
[2020-02-01] MEDS: Mirtazapine 15 MG Tablet 7.5 MG PO (22:01)
[2020-02-01 22:20] LABS: Bedside Glucose 180 mg/dL (70-110)
[2020-02-02] MEDS: oxyCODONE 5 MG Tablet PO (05:19)
[2020-02-02] MEDS: Polyethylene Glycol 3350 17 GM PACKET PO (05:20)
--- NOTE | 2020-02-02 05:20 | NURSING ---
Old Nicotine patvh removed from lt deltoid, new one applied to rt deltoid.
[2020-02-02] MEDS: Lisinopril 10 MG Tablet PO ×2 (05:21→16:49)
[2020-02-02] MEDS: Ciprofloxacin 250 MG Tablet PO (05:21)
[2020-02-02] MEDS: Levothyroxine 125 MCG Tablet PO (05:21)
[2020-02-02] MEDS: amLODIPine 5 MG Tablet PO (05:21)
[2020-02-02] MEDS: Senna/Docusate Sodium 1 Tablet 2 TABLET PO (05:21)
[2020-02-02] MEDS: Anastrozole 1 MG Tablet PO (05:22)
[2020-02-02] MEDS: Menthol/Lanolin/Calamine/Znox 113 GM Tube 1 APPLIC TOPICAL ×2 (05:24→22:02)
[2020-02-02 05:25] VITALS: BP 137/80; PULSE 79
[2020-02-02 06:20] LABS: Bedside Glucose 76 mg/dL (70-110)
[2020-02-02] MEDS: metFORMIN HCl 500 MG Tablet PO (09:15)
[2020-02-02 11:30] LABS: Bedside Glucose 177 mg/dL (70-110)
[2020-02-02 14:45] VITALS: BP 108/68; PULSE 74; RESP 18; TEMP 36.7; O2SAT 95
--- NOTE | 2020-02-02 16:08 | NURSING ---
This nurse was told by resident that she has been in contact with her family and are aware of her status.
[2020-02-02 16:15] LABS: Bedside Glucose 137 mg/dL (70-110)
[2020-02-02] MEDS: Rivaroxaban 10 MG Tablet PO (16:46)
[2020-02-02 16:50] VITALS: BP 121/68
[2020-02-02 21:31] LABS: Bedside Glucose 182 mg/dL (70-110)
[2020-02-02] MEDS: Mirtazapine 15 MG Tablet 7.5 MG PO (22:01)
[2020-02-03] MEDS: Polyethylene Glycol 3350 17 GM PACKET PO (05:21)
[2020-02-03] MEDS: amLODIPine 5 MG Tablet PO (05:23)
[2020-02-03] MEDS: Senna/Docusate Sodium 1 Tablet 2 TABLET PO (05:23)
[2020-02-03] MEDS: Lisinopril 10 MG Tablet PO ×2 (05:23→16:21)
[2020-02-03] MEDS: Levothyroxine 125 MCG Tablet PO (05:23)
[2020-02-03] MEDS: Anastrozole 1 MG Tablet PO (05:23)
[2020-02-03] MEDS: Menthol/Lanolin/Calamine/Znox 113 GM Tube 1 APPLIC TOPICAL ×2 (05:29→21:59)
[2020-02-03 06:16] LABS: Bedside Glucose 146 mg/dL (70-110)
[2020-02-03] MEDS: metFORMIN HCl 500 MG Tablet PO (08:13)
[2020-02-03 11:16] LABS: Bedside Glucose 215 mg/dL (70-110)
[2020-02-03 14:51] VITALS: BP 104/69; PULSE 78; RESP 18; TEMP 37; O2SAT 94
--- NOTE | 2020-02-03 15:55 | CASEMGMT ---
Addendum entered by Denisha Cadet 02/04/20 13:36: Muriel stated pt received FWW in 2019 and not eligible for insurance to cover. Spoke with pt and she is okay with not having a new one at [facility]. Original Note: Social Work Spoke with patient whom is requesting to DC home 02/04. IDT agreeable. Insurance approved with NRD 02/02. Pt declined [facility]. requested FWW. Referral made to Muriel. aware. Plan: DC home with 02/04. [facility] [place] - FWW Denisha Cadet, WEB CONTENT DIRECTOR CHEESE BLENDER
[2020-02-03] MEDS: Rivaroxaban 10 MG Tablet PO (16:21)
[2020-02-03 17:21] LABS: Bedside Glucose 147 mg/dL (70-110)
--- NOTE | 2020-02-03 19:48 | PCM.DC ---
- Discharge Diagnoses Current Active Problems: Current Active and Chronic Problems (Last Reviewed 01/10/20 @ 19:[address] Howard Summers, DO) Debility (Acute) Fall (Acute) Sacral fracture (Acute) Stroke (Chronic) Vertigo (Chronic) Osteoarthritis (Chronic) Hypokalemia (Chronic) Marijuana smoker, continuous (Chronic) You will use the following diet at home:: No restrictions, Regular Your food should be the consistency of: Regular Your liquids should be the consistency of: Regular/Thin Discharge Activity: Return to Normal Activity, May Shower, Use Walker Weight Bearing Status: Weight bearing as tolerated Call your doctor if you observe: Fever of 101 or Higher, Inability to urinate, Inability to have a bowel movement, Shortness of breath, Chest pain, Uncontrolled pain Allergies/Adverse Reactions: Allergies aspirin Allergy (Unknown, Verified 01/10/20 17:27) Nausea albuterol Adverse Reaction (Verified 01/10/20 17:27) I GET VERY SHAKEY/HYPERVENTILATING Penicillins Adverse Reaction (Verified 01/10/20 17:27) Nausea/Vom/Diarrhea Medications to take at Discharge metFORMIN HCl [Glucophage] 500 mg PO DAILY 12/22/14 Anastrozole 1 mg PO DAILY 03/23/19 Amlodipine [Norvasc] 5 mg PO DAILY 01/10/20 Enalapril Maleate [Vasotec] 10 mg PO BID 01/10/20 Levothyroxine Sodium [Synthroid] 125 mcg PO DAILY 01/10/20 Cholecalciferol (VIT D3) [Vitamin D3] 2,000 unit PO DAILY tab 01/14/20 Oxycodone [Oxyir] 5 mg PO Q4H PRN PRN 2 Days #10 tab 01/14/20 Rivaroxaban [Xarelto] 10 mg PO DAILY@1700 tab 01/14/20 Acetaminophen [Tylenol] 1,000 mg PO Q6H PRN tablet 02/03/20 Amlodipine [Norvasc] 5 mg PO DAILY tablet 02/03/20 Anastrozole [Arimidex] 1 mg PO DAILY tablet 02/03/20 Cholecalciferol (VIT D3) [Vitamin D3] 2,000 unit PO DAILY tablet 02/03/20 Insulin Glargine [Lantus SoloStar Pen] 15 units SC QHS pen 02/03/20 Levothyroxine [Synthroid] 125 mcg PO DAILY@0600 tablet 02/03/20 Menthol/Lanolin/Calamine/Znox [Calmoseptine Ointment] 1 applic TOPICAL 0600,2200 tube 02/03/20 Nicotine [Nicoderm Cq] 21 mg TRANSDERM. DAILY #30 patch 02/03/20 Oxycodone [Oxyir] 5 mg PO Q4H PRN PRN 7 Days #28 tablet 02/03/20 Polyethylene Glycol 3350 [Miralax] 17 gm PO DAILY #30 packet 02/03/20 Potassium Chloride [K-Dur] 40 meq PO DAILYCM tablet 02/03/20 Rivaroxaban [Xarelto] 10 mg PO DAILY@1700 #10 tab 02/03/20 Senna/Docusate Sodium [Senokot-S] 2 tab PO BID #60 tab 02/03/20 metFORMIN HCl [Glucophage] 500 mg PO DAILYCM tablet 02/03/20 The following prescriptions were given: Polyethylene Glycol 3350 [Miralax] 17 gm PO DAILY #30 packet Transmission Status: Pending to [facility]30 Nicotine [Nicoderm Cq] 21 mg TRANSDERM. DAILY #30 patch Transmission Status: Pending to [facility]30 Oxycodone [Oxyir] 5 mg PO Q4H PRN PRN 7 Days #28 tablet PRN Reason: Pain Score 4-10/10 Transmission Status: Sent to [facility] #30 Senna/Docusate Sodium [Senokot-S] 2 tab PO BID #60 tab Transmission Status: Pending to [facility]30 Rivaroxaban [Xarelto] 10 mg PO DAILY@1700 #10 tab Transmission Status: Pending to [facility]30 Primary Care Physician: Tera Butts MD [Primary Care Provider] - Please follow up with your Primary Care Physician in: 1 week. Test Results: Test results from this visit will be discussed in further detail at your follow-up appointment, if applicable. Please Follow Up With: at [facility] When: 2 weeks. Proposed Discharge Date: 02/05/20
--- NOTE | 2020-02-03 19:49 | PCM.DC.SUM ---
Discharge Date and Diagnosis - Problem List Patient Problems: Active and Suspected Problems (Last Reviewed 01/10/20 @ 19:[address] Howard Summers DO) Debility (Acute) Fall (Acute) Sacral fracture (Acute) Date of Admission: 01/14/20 Date of Discharge: 02/05/20 - Primary Discharge Diagnosis Active and Suspected Problems (Last Reviewed 01/10/20 @ 19:[address] Howard Summers DO) Debility (Acute) Fall (Acute) Sacral fracture (Acute) - Secondary Discharge Diagnosis Chronic Problems (Last Reviewed 01/10/20 @ 19:[address] Howard Summers DO) Stroke (Chronic) Vertigo (Chronic) Osteoarthritis (Chronic) Hypokalemia (Chronic) Marijuana smoker, continuous (Chronic) Type 2 diabetes mellitus (Chronic) Hypothyroidism (Chronic) Vision problems (Chronic) Thyroid disease (Chronic) High blood pressure (Chronic) Hearing problem (Chronic) Diabetes (Chronic) Carpal tunnel syndrome (Chronic) Breast cancer (Chronic) Asthma (Chronic) Arthritis (Chronic) Hospital Course and Treatment Imaging Results: 01/15/20 06:55 Diet: Calorie Controlled Food consistency:: Regular Liquid Consistency:: Regular/Thin Is pt able to select menu?: Yes How many daily calories?: 1800 calorie Clinical Impression(s) from Imaging Studies KUB X-Ray 01/17/20 16:44 IMPRESSION: A pattern suggesting constipation is present. The bowel gas pattern is nonobstructive in appearance. Electronically Signed: Gunnar Campa MD at 17:02 EDT Tel , Service support , Hip/Pelvis X-Ray 01/20/20 08:25 IMPRESSION: There is internal fixation of a right femoral neck fracture in good alignment. Electronically Signed: Tori Elmore at 10:23 EDT Tel , Service support , Labs (Last 48 Hours) 02/01/20 02/02/20 02/02/20 21:59 06:05 11:26 POC Glucose 180 H 76 177 H 02/02/20 02/02/20 02/03/20 16:08 21:26 06:09 POC Glucose 137 H 182 H 146 H 02/03/20 02/03/20 11:06 17:16 POC Glucose 215 H 147 H Operations: None, - - Right hip ORIF, intramedullary nail fixation Procedures: None Summary of Care Provided: The patient is a 64 year old Female with below past medical history hospitalized for right hip fracture, sacral fracture, underwent right hip ORIF, intramedullary nail 01/11/[address] El Maurer, postoperative course complicated by reactive fever, admitted to TCU with debility, here for rehabilitation, strengthening, prior to discharge home with . Discharge home with , [employer] Front Wheeled Walker. Patient Problems: Active and Suspected Problems (Last Reviewed 01/10/20 @ 19:[address] Howard Summers, DO) Debility (Acute) Fall (Acute) Sacral fracture (Acute) - Physical Exam Vitals/I&O's: Vital Signs Temp Pulse Resp BP Pulse Ox 98.6 F 78 18 104/69 94 02/03/20 14:51 02/03/20 14:51 02/03/20 14:51 02/03/20 14:51 02/03/20 14:51 Oxygen Delivery Method Room Air Weight: 56.702 kg Body Mass Index (BMI) 24.7 Finger Stick Blood Glucose 181 Intake and Output for Last 24 Hours 02/01/20 02/02/20 02/03/20 23:59 23:59 23:59 Intake Total 720 / 720 400 / 400 360 / 360 Balance 720 / 720 400 / 400 360 / 360 Laboratory Results 02/02/20 21:26: POC Glucose 182 H 02/03/20 06:09: POC Glucose 146 H 02/03/20 11:06: POC Glucose 215 H 02/03/20 17:16: POC Glucose 147 H Current Medications Acetaminophen (Tylenol) 1,000 mg PO Q6H PRN PRN Reason: Pain Score 1-3/10 Last Admin: 01/27/20 13:08 Dose: 1,000 mg Documented by: Amlodipine Besylate (Norvasc) 5 mg PO DAILY [facility] Last Admin: 02/03/20 05:23 Dose: 5 mg Documented by: Anastrozole (Arimidex) 1 mg PO DAILY [facility] Last Admin: 02/03/20 05:23 Dose: 1 mg Documented by: Bisacodyl (Dulcolax) 10 mg PO DAILY PRN PRN Reason: Constipation Calamine/Phenol (Calmoseptine Ointment) 1 applic TOPICAL 0600,2200 [facility]; Protocol Last Admin: 02/03/20 05:29 Dose: 1 applicatio Documented by: Cholecalciferol (Vitamin D (25mcg)) 2,000 unit PO DAILY [facility] Last Admin: 02/03/20 05:23 Dose: 2,000 unit Documented by: Dextrose (D50w Syringe) 0 gm IV X1 PRN; Protocol PRN Reason: Hypoglycemia Glucagon () 1 mg IM .X1 PRN PRN Reason: Hypoglycemia Hydrocortisone (Hytone) 1 applic TOPICAL TID PRN PRN; Protocol PRN Reason: ITCHING Last Admin: 01/18/20 11:17 Dose: 1 applicatio Documented by: Insulin Glargine (Lantus (Bkc)) 15 units SC QHS [facility] Last Admin: 02/02/20 22:00 Dose: 15 units Documented by: Levothyroxine Sodium (Synthroid) 125 mcg PO DAILY@0600 [facility] Last Admin: 02/03/20 05:23 Dose: 125 mcg Documented by: Lisinopril (Zestril) 10 mg PO BID [facility] Last Admin: 02/03/20 16:21 Dose: 10 mg Documented by: [facility] Admin: 02/03/20 08:13 Dose: 500 mg Documented by: Mirtazapine (Remeron) 7.5 mg PO QHS [facility] Last Admin: 02/02/20 22:01 Dose: 7.5 mg Documented by: Nicotine (Nicoderm Cq (Pbkc)) 21 mg TRANSDERM. DAILY [facility] Last Admin: 02/03/20 05:23 Dose: 21 mg Documented by: Oxycodone HCl (Oxyir) 5 mg PO Q4H PRN PRN PRN Reason: Pain Score 4-10/10 Last Admin: 02/02/20 05:19 Dose: 5 mg Documented by: Polyethylene Glycol (Miralax) 17 gm PO DAILY [facility] Last Admin: 02/03/20 05:21 Dose: 17 gm Documented by: Potassium Chloride (K-Dur) [facility] Last Admin: 04/30/20 08:13 Dose: 40 meq Documented by: Rivaroxaban (Xarelto) 10 mg PO DAILY@1700 [facility] Stop: 02/15/20 23:59 Last Admin: 02/03/20 16:21 Dose: 10 mg Documented by: Senna/Docusate Sodium (Senokot-S, Bonny-Colace) 2 tablet PO BID [facility] Last Admin: 02/03/20 16:20 Dose: Not Given Documented by: Sodium Chloride () 10 - 40 ml IV UD PRN PRN Reason: SALINE FLUSH Last Admin: 01/22/20 05:40 Dose: 10 ml Documented by: Discharge Diet: No Restrictions Discharge Activity: Return to Normal Activity, May Shower, Use Walker Weight Bearing Status: Weight bearing as tolerated Call your doctor if you observe: Fever of 101 or Higher, Inability to urinate, Inability to have a bowel movement, Shortness of breath, Chest pain, Uncontrolled pain Home Medications: Medications to take at Discharge metFORMIN HCl [Glucophage] 500 mg PO DAILY 12/22/14 Anastrozole 1 mg PO DAILY 03/23/19 Amlodipine [Norvasc] 5 mg PO DAILY 01/10/20 Enalapril Maleate [Vasotec] 10 mg PO BID 01/10/20 Levothyroxine Sodium [Synthroid] 125 mcg PO DAILY 01/10/20 Cholecalciferol (VIT D3) [Vitamin D3] 2,000 unit PO DAILY tab 01/14/20 Oxycodone [Oxyir] 5 mg PO Q4H PRN PRN 2 Days #10 tab 01/14/20 Rivaroxaban [Xarelto] 10 mg PO DAILY@1700 tab 01/14/20 Acetaminophen [Tylenol] 1,000 mg PO Q6H PRN tablet 02/03/20 Amlodipine [Norvasc] 5 mg PO DAILY tablet 02/03/20 Anastrozole [Arimidex] 1 mg PO DAILY tablet 02/03/20 Cholecalciferol (VIT D3) [Vitamin D3] 2,000 unit PO DAILY tablet 02/03/20 Insulin Glargine [Lantus SoloStar Pen] 15 units SC QHS pen 02/03/20 Levothyroxine [Synthroid] 125 mcg PO DAILY@0600 tablet 02/03/20 Menthol/Lanolin/Calamine/Znox [Calmoseptine Ointment] 1 applic TOPICAL 0600,2200 tube 02/03/20 Nicotine [Nicoderm Cq] 21 mg TRANSDERM. DAILY #30 patch 02/03/20 Oxycodone [Oxyir] 5 mg PO Q4H PRN PRN 7 Days #28 tablet 02/03/20 Polyethylene Glycol 3350 [Miralax] 17 gm PO DAILY #30 packet 02/03/20 Potassium Chloride [K-Dur] 40 meq PO DAILYCM tablet 02/03/20 Rivaroxaban [Xarelto] 10 mg PO DAILY@1700 #10 tab 02/03/20 Senna/Docusate Sodium [Senokot-S] 2 tab PO BID #60 tab 02/03/20 metFORMIN HCl [Glucophage] 500 mg PO DAILYCM tablet 02/03/20 Following Prescrptions Were Given to Patient: Polyethylene Glycol 3350 [Miralax] 17 gm PO DAILY #30 packet Transmission Status: Pending to [facility]. #30 Nicotine [Nicoderm Cq] 21 mg TRANSDERM. DAILY #30 patch Transmission Status: Pending to [facility] #30 Oxycodone [Oxyir] 5 mg PO Q4H PRN PRN 7 Days #28 tablet PRN Reason: Pain Score 4-10/10 Transmission Status: Sent to [facility]. #30 Senna/Docusate Sodium [Senokot-S] 2 tab PO BID #60 tab Transmission Status: Pending to [facility] #30 Rivaroxaban [Xarelto] 10 mg PO DAILY@1700 #10 tab Transmission Status: Pending to [facility] #30 Primary Care Physician: Tera Butts MD [Primary Care Provider] - Please follow up with your Primary Care Physician in: 1 week. Please Follow Up With: at [facility] When: 2 weeks. Disposition: Home Minutes spent on discharge:: 30 Patient Condition:: Stable Medical Necessity - Tobacco Use Smoking Status: Heavy Smoker (>10/day) Tobacco Use: Cigarettes Meaningful Use Info Meaningful Use Diagnoses (Choose all that apply): None applicable
[2020-02-03 21:35] LABS: Bedside Glucose 181 mg/dL (70-110)
[2020-02-03] MEDS: oxyCODONE 5 MG Tablet PO (21:57)
[2020-02-03] MEDS: Mirtazapine 15 MG Tablet 7.5 MG PO (21:57)
[2020-02-04] MEDS: Polyethylene Glycol 3350 17 GM PACKET PO (05:29)
[2020-02-04] MEDS: Anastrozole 1 MG Tablet PO (05:30)
[2020-02-04] MEDS: Lisinopril 10 MG Tablet PO ×2 (05:30→16:51)
[2020-02-04] MEDS: amLODIPine 5 MG Tablet PO (05:30)
[2020-02-04] MEDS: Levothyroxine 125 MCG Tablet PO (05:30)
[2020-02-04] MEDS: Senna/Docusate Sodium 1 Tablet 2 TABLET PO (05:30)
[2020-02-04] MEDS: Menthol/Lanolin/Calamine/Znox 113 GM Tube 1 APPLIC TOPICAL (05:38)
[2020-02-04 06:25] LABS: Bedside Glucose 89 mg/dL (70-110)
[2020-02-04] MEDS: metFORMIN HCl 500 MG Tablet PO (09:22)
[2020-02-04 11:21] LABS: Bedside Glucose 227 mg/dL (70-110)
--- NOTE | 2020-02-04 13:11 | MDS.RN ---
Pain interview for muna 02/05/20 completed.
--- NOTE | 2020-02-04 14:26 | CASEMGMT ---
Social Work BIMS and PHQ-9 completed for MDS assessment. Denisha Cadet, MANAGER STUDENT SERVICES PARTS FACILITATOR
[2020-02-04 14:49] VITALS: BP 104/67; PULSE 80; RESP 16; TEMP 36.7; O2SAT 96
[2020-02-04 16:25] LABS: Bedside Glucose 170 mg/dL (70-110)
[2020-02-04] MEDS: Rivaroxaban 10 MG Tablet PO (16:51)
--- NOTE | 2020-02-04 21:50 | CASEMGMT ---
Social Work Consult: Support Informant: Officer No Maurer Officer Erasto reporting to patient that patient son, Mekhi this evening. Patient tearful but able to collected self. Patient wanting family to come to be with patient. Due to COVID-19 precautions there are to be no visitors at this time. Patient with a planned discharge date for tomorrow. Collaborating with medical team including Dr. Barker, patient is cleared for discharge this evening. Patient updated to be cleared for discharge this evening if patient would like to discharge, patient choosing to discharge this evening to be with family. Patient reporting to have all needed DME in the home (walker) and to have support from spouse. Patient stating that patient spouse, Cullen will need to come coal picker patient. Patient stating that spouse works at [employer]. Officer Erasto getting in contact with patient spouse. Patient spouse able to come and coal picker patient. Active support and listening provided. Patient tearful but able to collect self throughout conversation. Medical team aware of plan. Patient to discharge on this day: 02/04/2020 to home with spouse. Sanjiv DARNELL, MARIA DOLORES
[2020-02-04 22:00] VITALS: BP 134/81; PULSE 96; RESP 18; TEMP 36.7; O2SAT 96
== END 2020-02-04 22:15 | disposition home or self-care (01) | DRG 561 ==
PROVIDERS: Admitting Provider Family Medicine Geriatric Medicine; PCP Internal Medicine; Visit Provider Family Medicine Geriatric Medicine
DX: S72.141D Displaced intertrochanteric fracture of right femur, subsequent encounter for closed fracture with routine healing (principal); S32.10XD Unspecified fracture of sacrum, subsequent encounter for fracture with routine healing; W19.XXXD Unspecified fall, subsequent encounter; J45.909 Unspecified asthma, uncomplicated; M19.90 Unspecified osteoarthritis, unspecified site; E03.9 Hypothyroidism, unspecified; E11.9 Type 2 diabetes mellitus without complications; F17.210 Nicotine dependence, cigarettes, uncomplicated; E87.6 Hypokalemia; E55.9 Vitamin D deficiency, unspecified; I10 Essential (primary) hypertension; Z23 Encounter for immunization
CPT/HCPCS: 36415; 73502; 74018; 80048; 81001; 82962; 85025; 87086; 87088; 87186; 97110; 97116; 97162; 97166; 97530; 97535; 97802; 99406; 90670; A4216; J7799

== ENCOUNTER 2020-02-08 08:13 | Emergency (ER) | payer BC, SELFPAY ==
[2020-01-14 13:54] VITALS: BMI 24.7
[2020-02-08 08:15] VITALS: BP 175/99; PULSE 100; RESP 16; TEMP 36.4; O2SAT 99; BMI 24.7
--- NOTE | 2020-02-08 08:36 | RAD_ITS ---
STUDY: X-RAY - RIGHT HAND REASON FOR EXAM: Female, 64 years old. Fell last night, injury to 5th finger, swelling -- unable to move hand very well TECHNIQUE: 3 view(s) of the hand. COMPARISON: None. FINDINGS: Normal radiocarpal articulation. Normal distal radioulnar joint. Normal visualized carpal bones. Normal carpal articulations Normal carpometacarpal articulation of the thumb. Normal second through fifth carpometacarpal joints. Normal metacarpi. Normal metacarpophalangeal joint of the thumb. Normal interphalangeal joint of the thumb. Normal proximal and distal phalanges of the thumb. Normal metacarpophalangeal joints of the second through fifth fingers. Normal proximal and distal interphalangeal joints of the second through fifth fingers. Nondisplaced fracture at the base of the middle phalanx of the fifth digit. Soft tissue swelling. RAD/Hand Min 3 Views IMPRESSION: Nondisplaced fracture at the base of the middle phalanx of the fifth digit. Soft tissue swelling. Electronically Signed: Billy Heath, at 9:17 EDT , Service support ,
--- NOTE | 2020-02-08 08:36 | RAD_ITS ---
STUDY: X-RAY - RIGHT FEMUR REASON FOR STUDY: Female, 64 years old. Fell last night, no hip pain, but hip surgery last month TECHNIQUE: 4 view(s) of the femur. COMPARISON: Comparison is made with prior examination dated January 20, 2020. FINDINGS: The patient is status post intramedullary marisabel and compression screw fixation of the right intertrochanteric fracture. There is evidence of healing of the fracture. The position is maintained. Normal visualized soft tissue structure. RAD/Femur Min 2 Views IMPRESSION: Status post ORIF of the right intratrochanteric fracture. The fracture is healing. The alignment is maintained. Electronically Signed: Billy Heath, at 9:03 EDT , Service support ,
[2020-02-08] MEDS: HYDROcodone Bitartrate/Apap 5/325 Tablet PO (08:55)
--- NOTE | 2020-02-08 09:31 | ED.VISSUMM ---
- ER Visit Summary Date of Service: 02/08/20 Chief Complaint: Fall History of Present Illness: The patient is a [address] El Maurer and Dr. Butts. Patient reports that this morning she was using her walker and caught it on the is door strip to the bathroom and lost her balance and fell. She reports that she has right hand pain is 10 of 10 in severity. She has right hip pain that is 4 out of 10 in severity. She denies any blow to the head or loss consciousness. She is not on anticoagulants. She denies any neck, back, shoulder pain. Physical Examination: Vitals: Stable. Afebrile. Neck: No vertebral tenderness. Full ROM without difficulty. Cleared by NEXUS criteria. Back: No vertebral tenderness. General: A&O x 3. NAD. Cardiovascular exam: Regular rate and rhythm, no murmur, rub or gallop. Respiratory exam: Chest nontender. No crepitus. Clear to auscultation bilaterally. No wheezes or stridor. Abdominal exam: Soft, nontender, nondistended, normal bowel sounds. No pain in RUQ or LUQ specifically. No peritoneal signs. Extremity: Mild tenderness palpation over the right greater trochanter. Minimal pain with internal or external rotation of her hip. Moderate tensional patient soft tissue swelling over her right fourth and fifth digits. She is neurovascular intact distally. Test Results: Clinical Impression(s) from Imaging Studies Femur X-Ray 02/08/20 08:36 IMPRESSION: Status post ORIF of the right intratrochanteric fracture. The fracture is healing. The alignment is maintained. Electronically Signed: Billy Heath, at 9:03 EDT , Service support , Hand X-Ray 02/08/20 08:36 IMPRESSION: Nondisplaced fracture at the base of the middle phalanx of the fifth digit. Soft tissue swelling. Electronically Signed: Billy Heath, at 9:17 EDT , Service support , Emergency Department Course and Treatment: Patient was treated with [place] p.o. I discussed with her the possibility of an aluminum foam splint Ortho-Glass splint. She would rather have the Ortho-Glass splint. This was placed. Treatment Plan: Patient is asking for a wheelchair for home. She is given a prescription for this. She will be discharged with [place]. Instructed to follow-up Dr. El Maurer in 1 week for another exam. Return to the emergency department for any worsening symptoms. Disposition: To home in improved and stable condition. Impression: 1. Fall. 2. Right fifth finger middle phalanx fracture. 3. Ortho-Glass ulnar gutter splint, fabricated. This note was generated with [employer] dictation software. It may contain incorrect words, spelling, and punctuation that were not noted in review of the chart prior to signing ED Disposition - Plan for ED Patient: Instructions: ED FINGER FRACTURE Closed Prescriptions: Hydrocodone Bitart/Apap 5-325 [[place] 5MG-325MG] 1 tablet PO Q4H PRN PRN 2 Days #10 tablet PRN Reason: Pain Wheelchair 1 each MC CONT #1 each Referrals: El Maurer MD [STAFF PHYSICIAN] - 1 Week
== END 2020-02-08 10:08 | disposition home or self-care (01) ==
LOC: ED 09:32
PROVIDERS: Emergency Provider Emergency Medicine; PCP Internal Medicine
DX: S62.626A Displaced fracture of middle phalanx of right little finger, initial encounter for closed fracture (principal); W01.0XXA Fall on same level from slipping, tripping and stumbling without subsequent striking against object, initial encounter; Y93.9 Activity, unspecified; Y92.89 Other specified places as the place of occurrence of the external cause; Y99.9 Unspecified external cause status; E11.9 Type 2 diabetes mellitus without complications; J44.9 Chronic obstructive pulmonary disease, unspecified; I10 Essential (primary) hypertension; E78.00 Pure hypercholesterolemia, unspecified; F17.210 Nicotine dependence, cigarettes, uncomplicated
CPT/HCPCS: 29130; 73130; 73552; 99283

== ENCOUNTER → 2020-02-15 09:06 | Outpatient (CLI) | payer BC, SELFPAY ==
[2020-02-09 10:50] VITALS: BMI 24.7
--- NOTE | 2020-02-15 09:10 | BD_ITS ---
STUDY: DUAL ENERGY X-RAY ABSORPTIOMETRY / DXA REASON FOR EXAM: Female, 64 years old. 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 ( PT DIDN''T MENTION, BUT FOUND FEMUR MURALI ON IMAGE) -- HX OF RIGHT FEMUR MURALI -- FORD OF 1 INCH TECHNIQUE: Bone Mineral Density (BMD) measurements of lumbar spine and left hip were obtained. COMPARISON: None. FINDINGS: Lumbar Spine (L1-L4): g/cm2 (0.884) / T-score (-2.5) / Z-score (0.9) Findings are suggestive of osteoporosis with a high fracture risk. Left Femur Total: g/cm2 (0.685) / T-score (-2.6) / Z-score (-1.3) Left Femoral Neck: g/cm2 (0.655) / T-score (-2.8) / Z-score (-1.3) BD/Dexa Bone Density Study IMPRESSION: The patient is considered osteoporotic as outlined below according to World Bry[employer] Organization (WHO) criteria with a high fracture risk. Reference Information: The T-score is the number of standard deviations above or below the standard which is normal for young adults at their peak bone mineral density. The World Health Organization (WHO) interprets the T-scores as follows: Above -1 Normal bone density Between -1 and -2.5 Osteopenia Equal to / or below -2.5 Osteoporosis As a practical clinical guideline, osteopenia may be graded as follows: Mild -1 through -1.5 Moderate -1.6 through -2.0 Severe -2.1 through -2.4 The Z-score is the number of standard deviations above or below age-matched controls. A Z-score of less than -1.5 would be considered abnormal. References: 1. NIH Osteoporosis and Related Bone Diseases http://www.osteo.org 2. International Society for Clinical Densitometry http://www.iscd.org 3. National Osteoporosis Foundation http://www.nof.org Electronically Signed: Billy Heath, at 11:59 EDT , Service support ,
== END ==
PROVIDERS: PCP Internal Medicine; Referring Provider Internal Medicine; Visit Provider Internal Medicine
DX: Z78.0 Asymptomatic menopausal state (principal)
CPT/HCPCS: 77080

== ENCOUNTER 2020-03-21 10:32 | Inpatient (IN) | payer BC, SELFPAY ==
[2020-02-24 13:25] VITALS: BMI 24.7
[2020-03-21] VITALS (15 sets, daily range): BP systolic 138–175; BP diastolic 78–102; PULSE 85–101; RESP 12–18; TEMP 36.2–37.1; O2SAT 93–97; BMI 22.4; BMI 20.2; BMI 21.5
--- NOTE | 2020-03-21 10:44 | EKG12_ITS ---
Test Reason : STROKE Blood Pressure : / mmHG Vent. Rate : 093 BPM Atrial Rate : 093 BPM P-R Int : 142 ms QRS Dur : 070 ms QT Int : 376 ms P-R-T Axes : 083 026 -57 degrees QTc Int : 467 ms Normal sinus rhythm Nonspecific ST and T wave abnormality Abnormal ECG Confirmed by KATHARINA LEO, MYRON ([id number]), make up editor JEFFERY MEJIA ([id number] on 03/24/2020 11:06:10 AM Referred By: TAHIR Confirmed By:MYRON POSADAS MD
--- NOTE | 2020-03-21 10:44 | CT_ITS ---
STUDY: CT BRAIN WITHOUT CONTRAST REASON FOR EXAM: Female, 64 years old. CVA RADIATION DOSAGE (If Supplied By Facility): CTDIvol = ( 44.99 ) mGy, DLP = ( 711.75 ) mGycm TECHNIQUE: Transaxial CT imaging of the brain was performed without administration of intravenous contrast material. Individualized dose optimization techniques were used for this CT. COMPARISON: Comparison is made with prior study dated January 10, 2020. FINDINGS: Normal soft tissue structures. Normal calvarium. There is mild cerebral atrophy with widening of the extra-axial spaces and ventricular dilatation. There are areas of decreased attenuation within the white matter tracts of the supratentorial brain, consistent with microvascular disease changes. Old lacunar infarcts in the basal ganglion bilaterally. Normal brainstem. There is mild cerebellar atrophy. There is no intracranial hemorrhage. There are no findings of an acute ischemic infarction. Normal visualized paranasal sinuses. CT/Brain/Head without Contrast IMPRESSION: Chronic involutional changes of the brain. Old lacunar infarcts in the basal ganglion bilaterally. N.B. : The above information has been verbally conveyed by Billy Heath to Josephine Blevins on 03/21/2020 11:06:18 (ET). Electronically Signed: Billy Heath, at 11:07 EDT , Service support ,
--- NOTE | 2020-03-21 10:45 | CT_ITS ---
STUDY: CTA HEAD AND NECK WITH CONTRAST REASON FOR EXAM: Female, 64 years old. CVA RADIATION DOSAGE (If Supplied By Facility): CTDIvol = ( 15.27 ) mGy, DLP = ( 457.50 ) mGycm TECHNIQUE: CT angiography was performed with a multi-detector CT scanner. Data acquisition was obtained from the skull base through the vertex following intravenous administration of 100ML ISOVUE 370. MIP images were reconstructed from the axial data set. Post-processing of the angiographic images was performed, with multiplanar reformation and 3D reconstruction. Individualized dose optimization techniques were used for this CT. COMPARISON: No relevant priors. FINDINGS: Normal bilateral petrous carotid arteries. There is calcified plaque formation of the right cavernous carotid artery, without a cross-sectional luminal stenosis. There is calcified plaque formation of the left cavernous carotid artery, without a cross-sectional luminal stenosis. Normal right A1 segments of the anterior cerebral artery. Normal left A1 segments of the anterior cerebral artery. Normal intact anterior communicating artery (ACOM). Normal bilateral A2 segments of the anterior cerebral arteries. Normal right M1 and M2 segments of the middle cerebral arteries, with a normal M1 bifurcation. Normal left M1 and M2 segments of the middle cerebral arteries, with a normal M1 bifurcation. Normal right posterior communicating artery (PCOM). Normal left posterior communicating artery (PCOM). Normal bilateral vertebral arteries. Normal basilar artery with a normal basilar bifurcation. The visualized bilateral superior cerebellar (SCA) arteries are normal. Normal bilateral P1, P2 and visualized P3 segments of the posterior cerebral arteries. There is no demonstrated aneurysm of the [place]. There is no demonstrated abnormality of the visualized brain. AORTIC ARCH: There is atherosclerotic calcific plaque formation of the aortic arch and great vessels arising from the aortic arch, without a hemodynamically significant stenosis. There is a normal origin of the brachiocephalic, left common carotid, and left subclavian arteries. Focal nonstenotic plaque is seen at the origin of the left subclavian artery. RIGHT CAROTID ARTERIES: Normal right common carotid artery (CCA). Normal right common carotid bulb. There is mild atherosclerotic plaque formation of the origin of the right internal carotid artery with less than 50% cross sectional diameter stenosis. Normal visualized cervical portion of the right internal carotid artery. Normal origin of the right external carotid artery (ECA). LEFT CAROTID ARTERIES: Normal left common carotid artery (CCA). Normal left common carotid bulb. There is mild atherosclerotic plaque formation of the origin of the left internal carotid artery with less than 50% cross sectional diameter stenosis. Normal visualized cervical portion of the left internal carotid artery. Normal origin of the left external carotid artery (ECA). VERTEBRAL ARTERIES: Normal bilateral vertebral arteries. CT/CTA Head AND Neck W/ Contrast IMPRESSION: Minimal nonstenotic calcific plaques are seen at the origins of the left and right internal carotid arteries. N.B. : The above information has been verbally conveyed by Billy Heath to Dr Alison DO, on 03/21/2020 11:10:46 (ET). Electronically Signed: Billy Heath, at 11:12 EDT , Service support ,
--- NOTE | 2020-03-21 10:49 | ED.DCSUM_ITS ---
- ER Visit Summary Date of Service: 03/21/20 Chief Complaint: [Slurred speech and left-sided weakness] History of Present Illness: The patient is a 64 F [presents to the emergency department with symptoms that started sometime after 11 PM last evening. Patient went to bed her normal self and woke up a little after 3 AM when her son came home from work and she had slurred speech. Patient also complains of some weakness to her left side. She does complain of a headache. She complains of pain in the back of her neck. She denies any chest pain or shortness of breath. She denies recent illness. Patient does have history of prior diabetes, hypertension, hypothyroidism, breast cancer, and asthma. Patient is currently on Xarelto for history of DVT. She denies urinary symptoms or recent illness.] Patient continues to smoke Physical Examination: [HEENT-PERRLA, EOMI. Cranial nerves II through XII grossly intact. TMs clear. Mucous membranes moist. No adenopathy. Cardiovascular-regular rate and rhythm without murmur or ectopy Lungs-clear to auscultation, chest wall stable without crepitus or subcu emphysema Abdomen-normoactive bowel sounds, soft, nontender, no rebound or rigidity, no peritoneal signs. Neuro exam-no facial droop noted. Patient does have dysarthria. Patient has subtle weakness of the left leg as she is able to hold it up for a count of 5 but it does start to drift towards the bed. Patient has no paresthesias. Her NIH stroke scale for us was a 3. Extremities-intact ?4, normal range of motion, normal pulses, atraumatic] Test Results: [EKG obtained arrival shows sinus rhythm with a ventricular rate of 93 bpm with some nonspecific ST changes. CBC with differential showed a white of 16.2, hemoglobin 13, hematocrit 44, platelets 450. Chemistries unremarkable. INR was 1.0. Troponin less than 0.015. On arrival a fingerstick blood sugar was performed and was 154. CT scan of the brain showed old lacunar infarct otherwise nothing acute. CTA of the head and neck essentially unremarkable.] Emergency Department Course and Treatment: [Patient is not a thrombolytic candidate given time of onset greater than 7 hours and also patient on Xarelto.] Patient was evaluated by stroke neurologist from [facility] and recommendations were that if patient had large vessel occlusion she was to be transferred to their facility. Without a large vessel occlusion patient could remain at [facility] for further evaluation and definitive treatment. Treatment Plan: [Admit] Disposition: [Admit] Impression: [CVA Leukocytosis-etiology uncertain] This note was generated with [employer] dictation software. It may contain incorrect words, spelling, and punctuation that were not noted in review of the chart prior to signing ED Disposition - Plan for ED Patient: Referrals: Tera Butts MD [Primary Care Provider] -
[2020-03-21 10:50] LABS: Bedside Glucose 154 mg/dL (70-110)
[2020-03-21 10:55] LABS: Absolute Lymphocyte Count 3.45 X10^3/uL (0.83-4.51); Absolute Neutrophil Count 11.4 X10^3/uL (2.0-7.7); Basophil# 0.14 X10^3/uL; Basophil% 0.9 % (0-1); Eosinophil# 0.27 X10^3/uL; Eosinophils% 1.7 % (0-5); Hemoglobin 13.5 g/dL (12.0-15.0); Lymphocyte # 3.45 X10^3/ul (4.0); Lymphocyte % 21.4 % (19-41); Mean Corp Hgb Conc 30.7 g/dL (32-36); Mean Corpuscular Hgb 25.6 pg (27.0-32.0); Mean Corpuscular Volume 83.3 fL (81-99); Monocyte# 0.85 X10^3/uL; Monocyte% 5.3 % (0-10); NRBC Flagged by Analyzer 0 % (0-5); Neutrophil # 11.37 X10^3/uL (2.7-7.7); Neutrophil % 70.3 % (47-70); Platelet Count 450 K/mm3 (150-450); RBC Distribution Width SD 42.4 fl (35.1-43.9); Red Blood Count 5.28 M/mm3 (4.2-5.4); White Blood Count 16.2 K/mm3 (4.4-11.0)
[2020-03-21] MEDS: 0.9% Normal Saline 1,000 ML 100 ML IV (10:57)
--- NOTE | 2020-03-21 10:58 | CM.ED ---
Social Work Responding to stork alert, patient son present and appears to be coping well. Patient son stepped outside to get air and then came back in and is now with patient in room. Waiting [facility] neurologist evaluation. Son talking with patient. Ludell Ray also present and providing support. Sanjiv DARNELL, MARIA DOLORES
[2020-03-21 11:07] LABS: Prothrombin Time (Protime)PT. 12.4 SECONDS (11.7-14.9)
[2020-03-21 11:10] LABS: Anion Gap 6 (5-15); BUN 15 mg/dL (7-18); BUN/Creat Ratio 18.5 RATIO (10-20); Calcium,Total 9.2 mg/dL (8.5-10.1); Chloride 105 mmol/L (98-107); Creatinine, Serum 0.81 mg/dL (0.55-1.02); EST Glomerular Filtration Rate 75 mL/min (>60); Est Glom Filt Rate - Afr Amer 91 mL/min (>60); Estimated Creatinine Clearance 56.73 ml/min; Glucose 154 mg/dL (74-106); Potassium 3.5 mmol/L (3.5-5.1); Sodium Level 140 mmol/L (136-145)
--- NOTE | 2020-03-21 11:22 | CHAPLAIN ---
Type of Pastoral Visit ___ Initial Visit ___ Follow-up Visit ___ On-call Visit ___ General Patient Visit ___ Spiritual Assessment ___ Family Conference ___ Bereavement _x__ Rapid Response ___ Code Blue ___ Other (describe below) Pastoral Care Referral From ___ Patient ___ Family ___ Nurse ___ Physician ___ Supervisor Fishing ___ Operator Prefinish _x__ Other (describe below) Sacrament/Intervention ___ Active listening ___ Anointing ___ Uatsdin ___ Bereavement ___ Communion ___ Tessie exploration ___ ___ Life review ___ Prayer ___ Reconciliation ___ Sacrament of Sick _x__ Supportive presence ___ Wedding ___ Other (describe below) Pastoral Comments met spouse and escorted him to room of patient; offer of presence and support
--- NOTE | 2020-03-21 11:30 | HP.PCM_ITS ---
Problem List (1) Debility Status: Chronic (2) Fall Status: Chronic (3) Sacral fracture Status: Chronic (4) Stroke Status: Acute (5) Vertigo Status: Chronic (6) Osteoarthritis Status: Chronic (7) Hypokalemia Status: Chronic (8) Marijuana smoker, continuous Status: Chronic (9) Intertrochanteric fracture of right hip Status: Acute (10) Type 2 diabetes mellitus Status: Chronic (11) Hypothyroidism Status: Chronic (12) Vision problems Status: Chronic (13) Thyroid disease Status: Chronic (14) High blood pressure Status: Chronic (15) Hearing problem Status: Chronic (16) Diabetes Status: Chronic (17) Carpal tunnel syndrome Status: Chronic (18) Breast cancer Status: Chronic (19) Asthma Status: Chronic (20) Arthritis Status: Chronic History of Present Illness Date of Admission: 03/21/20 Chief Complaint: Slurred speech The patient is a 64 year old F multiple comorbidities including physical debility following recent fall with right hip fracture for which patient underwent surgical intervention in February 2020, hypertension, diabetes mellitus type 2, previous history of CVA, tobacco dependence who was brought to the emergency department by the on account of suspected stroke. Patient was last known to be well around 10 PM on the night prior to her admission. Son found the patient on the morning of her admission with slurred speech and some left-sided weakness. Patient was brought to the emergency department. She did not qualify for TPA since she was outside the window moreover patient is on Xarelto for previous DVTs. Initial head CT did not reveal any acute CVA patient symptoms were however consistent and suspicious for CVA she was therefore ad mitted to monitored bed for further management Past Medical History Past Medical History (Chronic Problems): Chronic Problems (Last Reviewed 03/21/20 @ 11:[address] Ulises Rainey MD) Debility (Chronic) Fall (Chronic) Sacral fracture (Chronic) Vertigo (Chronic) Osteoarthritis (Chronic) Hypokalemia (Chronic) Marijuana smoker, continuous (Chronic) Type 2 diabetes mellitus (Chronic) Hypothyroidism (Chronic) Vision problems (Chronic) Thyroid disease (Chronic) High blood pressure (Chronic) Hearing problem (Chronic) Diabetes (Chronic) Carpal tunnel syndrome (Chronic) Breast cancer (Chronic) Asthma (Chronic) Arthritis (Chronic) Medical History: Medical History (Last Reviewed 03/21/20 @ 11:[address] Ulises Rainey MD) Vision problems (Chronic) H54.7 Thyroid disease (Chronic) E07.9 High blood pressure (Chronic) I10 Hearing problem (Chronic) H91.90 Diabetes (Chronic) E11.9 Carpal tunnel syndrome (Chronic) G56.00 Breast cancer (Chronic) C50.919 Asthma (Chronic) J45.909 Arthritis (Chronic) M19.90 Allergies aspirin Allergy (Unknown, Verified 03/21/20 10:36) Nausea albuterol Adverse Reaction (Verified 03/21/20 10:36) I GET VERY SHAKEY/HYPERVENTILATING Penicillins Adverse Reaction (Verified 03/21/20 10:36) Nausea/Vom/Diarrhea Home Medications: Ambulatory Orders Medication Instructions Recorded Enalapril Maleate [Vasotec] 10 mg PO BID 01/10/20 Alendronate Sodium [Fosamax] 70 mg PO QWEEK 03/21/20 Amlodipine [Norvasc] 5 mg PO DAILY 03/21/20 Anastrozole [Arimidex] 1 mg PO DAILY 03/21/20 Calcium Carbonate [Calcium] 600 mg PO BID 03/21/20 Cholecalciferol (Vitamin D3) 50 mcg PO DAILY 03/21/20 [Vitamin D3] Hydrochlorothiazide [Hctz] 25 mg PO DAILY 03/21/20 Insulin Glargine [Lantus SoloStar 15 units SUBCUT QHS 03/21/20 Pen] Levothyroxine [Synthroid] 125 mcg PO DAILY@0600 03/21/20 Potassium Chloride [K-Dur] 40 meq PO DAILYCM 03/21/20 Rivaroxaban [Xarelto] 10 mg PO DAILY@1700 03/21/20 Wheelchair 1 ea MC CONT 03/21/20 metFORMIN HCl [Glucophage] 500 mg PO DAILYCM 03/21/20 Surgical History: - - ORIF right hip, intramedullary nail, locked 01/11/2020. 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 Ulises aRiney MD) Father Cancer Brother Heart disease History Items: No pertinent history Paternal Family History: Family History (Last Reviewed 03/21/20 @ 11:[address] Ulises Rainey MD) Father Cancer Brother Heart disease History Items: No pertinent history Review of Systems Constitutional: Denies: Anorexia, Chills, Fever, Weight Change HEENT: Denies: Head Aches, Sinus Drainage Cardiovascular: Denies: Chest Pain, Orthopnea, Palpitations, Paroxysmal Noc. Dyspnea Respiratory: Denies: Cough, Shortness of breath at rest, Shortness of breath upon exertion, Sputum production Gastrointestinal: Denies: Abdominal Pain, Hematemesis, Hematochezia, Nausea, Melena, Vomiting Genitourinary: Denies: Dysuria, Frequency, Hematuria, Urgency Musculoskeletal: Denies: Joint Pain, Joint Tenderness Skin: Denies: Rash Neurological: Reports: Slurred speech, Focal weakness Psychiatric: Denies: Homicidal Ideations, Suicidal Ideations Hematologic/ Lymphatic: Denies: Easy Bruising, Easy Bleeding VTE Information - Inpt Only VTE Present on Admission: No VTE Mechan Device Prophylaxis: None VTE Pharm Prophylaxis ordered?: Yes Objective: GENERAL: cooperative HEENT: Atraumatic; EYES; Anicteric, Normal Conjunctiva NECK; supple, normal thyroid, RESPIRATORY: Diminished to auscultation CARDIOVASCULAR: Regular S1 S2, GI: soft, normoactive bowel sounds, : No Renal angle tenderness; EXTREMITIES: No edema, no clubbing, MUSCULOSKELETAL: no muscle waisting NEURO: 3 with muscle strength in left lower extremity 3/5 in 4/5 in left upper extremity 5/5 on the right SKIN: No Rash PSYCH; Flat affect - Physical Exam Vitals/I&O's: Vital Signs Temp Pulse Resp BP Pulse Ox 97.2 F L 100 18 154/89 H 94 03/21/20 11:23 03/21/20 11:23 03/21/20 11:23 03/21/20 11:23 03/21/20 11:23 Oxygen Delivery Method Room Air Weight: 51.9 kg Body Mass Index (BMI) 20.2 Finger Stick Blood Glucose 154 Laboratory Results 03/21/20 10:43: POC Glucose 154 H 03/21/20 10:45: WBC 16.2 H, RBC 5.28, Hgb 13.5, Hct 44.0, MCV 83.3, MCH 25.6 L, MCHC 30.7 L, RDW Std Deviation 42.4, RDW Coeff of Chad 14.0, Plt Count 450, MPV 10.0, Immature Gran % (Auto) 0.400, Neut % (Auto) 70.3 H, Lymph % (Auto) 21.4, Hudspeth % (Auto) 5.3, Eos % (Auto) 1.7, Baso % (Auto) 0.9, Absolute Neuts (auto) 11.4 H, Absolute Lymphs (auto) 3.45, Nucleated RBC % 0 03/21/20 10:45: PT 12.4, INR 1.0, APTT 32.0 03/21/20 10:45: Sodium 140, Potassium 3.5, Chloride 105, Carbon Dioxide 29.0, Anion Gap 6, BUN 15, Creatinine 0.81, Estim Creat Clear Calc 56.73, Est GFR (MDRD) Af Amer 91, Est GFR (MDRD) Non-Af 75, BUN/Creatinine Ratio 18.5, Glucose 154 H, Calcium 9.2, Troponin I < 0.015 Current Medications Sodium Chloride () 1,000 mls @ 100 mls/hr IV .Q10H ONE Stop: 03/21/20 20:43 Last Admin: 03/21/20 10:57 Dose: 100 mls/hr Documented by: Labetalol HCl (Trandate) 20 mg IV X1 PRN PRN Reason: BLOOD PRESSURE Assessment/Plan All Active Problems (Last Reviewed 03/21/20 @ 11:[address] Ulises Rainey MD) Stroke (Acute) Intertrochanteric fracture of right hip (Acute) Elvira is a 64-year-old lady with multiple comorbidities admitted with dysarthria and left-sided weakness 1. Suspected acute CVA ?Patient has been admitted to monitored bed currently being managed with every 4 neurochecks, MRI ordered to confirm the suspicion. Patient also had a 2D echo performed patient is already on antiplatelet therapy did continue 2. Physical debility ?Patient has history of recent right hip fracture for which patient underwent ORIF on 01/12/2020 3. Diabetes mellitus type II - uncontrolled, patient's oral hypoglycemics held. Placed on l Accu-Cheks a.c. and at bedtime and covered with sliding scale insulin 4. Hypertension - Blood pressure controlled, home medications continued with dose adjustment as needed 5. Hypothyroidism - Patient is on levothyroxine home dose continued 6. Previous history of DVTs ?Patient is on Xarelto 7. Tobacco dependence - Counseled on cessation, offered nicotine patch for tobacco cravings 8. History of breast CA ?Currently on remission on anastrozole 9. Vitamin D deficiency ?Patient is on oral supplement 10. DVT prophylaxis -patient is on Xarelto Inpatient E&M: 02096 Init Hosp L3
[2020-03-21 11:36] LABS: Bacteria 0 SEEN /hpf (None Seen); Mucous, Urine 0 SEEN /hpf (<or=2+); Red Blood Cells-Urine 0 SEEN /hpf (0-5)
[2020-03-21 11:40] LABS: Color, Urine Yellow (Yellow); Glucose, Dipstick Normal (Normal); Ketone-Dipstick Negative (Negative); Leukocyte Esterase-Dipstick 25 /ul (Negative); Nitrite-Dipstick Negative (Negative); Occult Blood-Urine Negative /ul (Negative); Protein-Dipstick 100 mg/dl (Negative); Specific Gravity, Urine 1.005 (1.002-1.030); Urine Bilirubin Dipstick Negative (Negative); Urine Clarity Sl. Cloudy (Clear); Urine Urobilinogen Normal (Normal)
[2020-03-21 11:50] LABS: Squamous Epithelial Cells - UA 0-5 SEEN /hpf (5-10); White Blood Cells 0-5 SEEN /hpf (0-5)
--- NOTE | 2020-03-21 12:02 | MRI_ITS ---
We are attempting to reach an attending provider to discuss findings. An addendum with communication details will be sent when the communication is complete. STUDY: MRI BRAIN WITHOUT CONTRAST REASON FOR EXAM: Female, 64 years old. CVA, slurred speech, left sided weakness TECHNIQUE: Standardized multiplanar fat and water weighted pulse sequences were obtained. COMPARISON: CT 03/21/2020 FINDINGS: Normal size of the ventricles and extra-axial spaces for the patient''s age. There are multiple white matter hyperintensities, distributed throughout the deep white matter tracts of the cerebral hemispheres, consistent with moderate chronic white matter ischemic changes. An acute infarct is present extending from the right urban radiata to the posterior limb of the right internal capsule. Remote infarcts in the bilateral basal ganglia. Remote infarct in the right thalamus. There is no extra-axial fluid accumulation. Normal flow voids within the major intracranial circulation suggesting patency by spin echo criteria. Normal sella turcica, pituitary gland, infundibular stalk, optic chiasm and hypothalamus. Normal tectal plate and pineal gland. Normal midbrain, king and medulla. Normal cerebellum. Normal basal cisterns. Normal bilateral temporal bones. Normal bilateral internal auditory canals. No demonstrated orbital abnormality, within the constraints of a routine brain study. Normal visualized paranasal sinuses. Normal calvarium and skull base. Normal visualized soft tissue structures. Normal visualized upper cervical spine. MRI/Brain without Contrast IMPRESSION: An acute infarct is present extending from the right urban radiata to the posterior limb of the right internal capsule. No evidence of acute intracranial hemorrhage. Electronically Signed: Gunnar Campa MD at 17:02 EDT Tel , Service support ,
--- NOTE | 2020-03-21 12:02 | ECHOCS_ITS ---
Reason For Study: TIA/CVA Procedure This was a 2D Doppler, Color Flow transthoracic echocardiogram. Poor parasternal window. The study was technically difficult. Contrast injection was performed. Exam performed portable in patient room. Left Ventricle Normal LV size. Left ventricular systolic function is normal. The estimated ejection fraction is 65 %. Diastolic function is indeterminate. No regional wall motion abnormalities noted. Right Ventricle Normal RV size. Normal systolic function. Atria Normal left atrium. Normal right atrium. No doppler evidence for ASD. Bubble contrast study negative for right to left interatrial shunt. Mitral Valve There is no mitral annular calcification. Normal mitral valve. Trivial mitral valve insufficiency. Tricuspid Valve Normal tricuspid valve. Trivial tricuspid valve insufficiency. Unable to estimate RV systolic pressure/pulmonary artery pressure due to technically difficult study. Aortic Valve The aortic valve is not well visualized. Mild focal aortic valve calcification. Mild aortic stenosis. Pulmonic Valve The pulmonic valve is not well visualized. Great Vessels Normal sized aortic root. Calcified aortic root. Pericardium/Pleural No pericardial effusion. Medication Diluted definity 4.0ml given slow IV push to enhance endocardial definition. Performed a rapid injection of agitated mix of 9 cc saline and 1cc air to assess for atrial septal defect. MMode/2D Measurements & Calculations LVIDd: 4.2 cm IVSd: 0.89 cm LVOT diam: 1.9 cm LVIDs: 2.8 cm LVPWd: 1.0 cm RVDd: 2.5 cm FS: 33.1 % LVOT area: 2.8 cm2 Ao root diam: 2.6 cm LAV(MOD-bp): 25.4 ml LA A4 area: 8.7 cm2 LAV(MOD-bp) Indexed: 16.7 ml/m2 LAV(MOD-sp2): 31.6 ml LAV(MOD-sp4): 17.0 ml LA dimension(2D): 2.9 cm RA A4 area: 7.9 cm2 Time Measurements MV dec time: 0.22 sec Doppler Measurements & Calculations MV E max true: 68.4 cm/sec Lat Peak E' True: 6.8 cm/sec Med Peak E' True: 4.5 cm/sec MV A max true: 115.2 cm/sec E/E' lat: 10.0 E/E' med: 15.1 MV E/A: 0.59 Ao V2 max: 177.7 cm/sec LV V1 max: 101.2 cm/sec SV(LVOT): 57.9 ml Ao max P.6 mmHg LV V1 max P.1 mmHg Ao V2 mean: 133.9 cm/sec LV V1 mean P.2 mmHg Ao mean P.7 mmHg LV V1 mean: 68.5 cm/sec Ao V2 VTI: 36.0 cm LV V1 VTI: 21.0 cm GREG(I,D): 1.6 cm2 GREG(V,D): 1.6 cm2 Interpretation Summary The study was technically difficult. Contrast injection was performed. Left ventricular systolic function is normal. The estimated ejection fraction is 65 %. Trivial mitral valve insufficiency. Trivial tricuspid valve insufficiency. Mild aortic stenosis. Calcified aortic root. Unable to estimate RV systolic pressure/pulmonary artery pressure due to technically difficult study. Diastolic function is indeterminate. Bubble contrast study negative for right to left interatrial shunt. Ordering Physician: Ulises Rainey Referring Physician: Tera Butts Performed By: Kiki Childress, HUMA, RVT
[2020-03-21 12:46] LABS: Bedside Glucose 137 mg/dL (70-110)
--- NOTE | 2020-03-21 14:33 | NURSING ---
This RN taking over care at this time
[2020-03-21] MEDS: 0.9% Saline Lock 10 ML Syringe IV (15:50)
[2020-03-21] MEDS: LORazepam 2 MG/ML Syringe 1 MG IV (15:51)
--- NOTE | 2020-03-21 16:12 | NURSING ---
Unable to complete vitals and NIHSS on time due to patient being off floor at MRI
[2020-03-21 17:15] LABS: Bedside Glucose 130 mg/dL (70-110)
[2020-03-21 21:25] LABS: Bedside Glucose 135 mg/dL (70-110)
[2020-03-22] VITALS (12 sets, daily range): BP systolic 131–166; BP diastolic 76–112; PULSE 78–102; RESP 16–18; TEMP 36.7–37.2; O2SAT 94–98; BMI 21.5
[2020-03-22 00:46] LABS: Bedside Glucose 128 mg/dL (70-110)
[2020-03-22] MEDS: 0.9% Saline Lock 10 ML Syringe IV (05:25)
[2020-03-22 05:31] LABS: Absolute Lymphocyte Count 3.86 X10^3/uL (0.83-4.51); Basophil# 0.13 X10^3/uL; Basophil% 0.9 % (0-1); Eosinophil# 0.35 X10^3/uL; Eosinophils% 2.5 % (0-5); Hematocrit 40.3 % (37-47); Hemoglobin 12.3 g/dL (12.0-15.0); Lymphocyte # 3.86 X10^3/ul (4.0); Lymphocyte % 27.2 % (19-41); Mean Corp Hgb Conc 30.5 g/dL (32-36); Mean Corpuscular Hgb 25.8 pg (27.0-32.0); Mean Corpuscular Volume 84.7 fL (81-99); Monocyte# 0.85 X10^3/uL; NRBC Flagged by Analyzer 0 % (0-5); Neutrophil # 8.95 X10^3/uL (2.7-7.7); Neutrophil % 62.9 % (47-70); Platelet Count 402 K/mm3 (150-450); RBC Distribution Width CV 14.2 % (11.6-14.6); RBC Distribution Width SD 42.8 fl (35.1-43.9); Red Blood Count 4.76 M/mm3 (4.2-5.4); White Blood Count 14.2 K/mm3 (4.4-11.0)
[2020-03-22 05:36] LABS: Bedside Glucose 81 mg/dL (70-110)
[2020-03-22 05:51] LABS: Anion Gap 7 (5-15); BUN 9 mg/dL (7-18); BUN/Creat Ratio 14.4 RATIO (10-20); Calcium,Total 8.4 mg/dL (8.5-10.1); Chloride 108 mmol/L (98-107); Cholesterol 188 mg/dL (200); Creatinine, Serum 0.62 mg/dL (0.55-1.02); EST Glomerular Filtration Rate 101 mL/min (>60); Est Glom Filt Rate - Afr Amer 123 mL/min (>60); Estimated Creatinine Clearance 64.98 ml/min; Glucose 83 mg/dL (74-106); High Density Lipoprotein 32 mg/dL; Magnesium 1.4 mg/dL (1.6-2.6); Potassium 3.2 mmol/L (3.5-5.1); Sodium Level 140 mmol/L (136-145); Triglycerides 176 mg/dL; Very Low Density Lipoprotein 35 mg/dL (5-40)
--- NOTE | 2020-03-22 07:16 | PN_ITS ---
Reason for Visit: Acute CVA Subjective: Patient is a 64-year-old lady with multiple comorbidities admitted with dysarthria and left-sided weakness MRI obtained as part of patient's evaluation demonstrated An acute infarct is present extending from the right urban radiata to the posterior limb of the right internal capsule. No evidence of acute intracranial hemorrhage. Patient has significant electrolyte abnormalities including hypokalemia and hypomagnesemia Objective: GENERAL: cooperative HEENT: Atraumatic; EYES; Anicteric, Normal Conjunctiva NECK; supple, normal thyroid, RESPIRATORY: Diminished to auscultation CARDIOVASCULAR: Regular S1 S2, GI: soft, normoactive bowel sounds, : No Renal angle tenderness; EXTREMITIES: No edema, no clubbing, MUSCULOSKELETAL: no muscle waisting NEURO: 3 with muscle strength in left lower extremity 3/5 in 4/5 in left upper extremity 5/5 on the right SKIN: No Rash PSYCH; Flat affect Vitals/I&O's: Vital Signs Temp Pulse Resp BP Pulse Ox 98.4 F 83 18 161/100 H 95 03/22/20 04:40 03/22/20 06:52 03/22/20 04:40 03/22/20 04:40 03/22/20 04:40 Oxygen Delivery Method Room Air Weight: 50 kg Body Mass Index (BMI) 21.5 Finger Stick Blood Glucose 154 Intake and Output for Last 24 Hours 03/20/20 03/21/20 03/22/20 23:59 23:59 23:59 Intake Total 1076.66 / 1076.66 83.34 / 83.34 Output Total 450 / 450 250 / 250 Balance 626.66 / 626.66 -166.66 / -166.66 Laboratory Results 03/21/20 10:43: POC Glucose 154 H 03/21/20 10:45: WBC 16.2 H, RBC 5.28, Hgb 13.5, Hct 44.0, MCV 83.3, MCH 25.6 L, MCHC 30.7 L, RDW Std Deviation 42.4, RDW Coeff of Chad 14.0, Plt Count 450, MPV 10.0, Immature Gran % (Auto) 0.400, Neut % (Auto) 70.3 H, Lymph % (Auto) 21.4, Ector % (Auto) 5.3, Eos % (Auto) 1.7, Baso % (Auto) 0.9, Absolute Neuts (auto) 11.4 H, Absolute Lymphs (auto) 3.45, Nucleated RBC % 0 03/21/20 10:45: PT 12.4, INR 1.0, APTT 32.0 03/21/20 10:45: Sodium 140, Potassium 3.5, Chloride 105, Carbon Dioxide 29.0, Anion Gap 6, BUN 15, Creatinine 0.81, Estim Creat Clear Calc 56.73, Est GFR (MDRD) Af Amer 91, Est GFR (MDRD) Non-Af 75, BUN/Creatinine Ratio 18.5, Glucose 154 H, Calcium 9.2, Troponin I < 0.015 03/21/20 11:33: Urine Color Yellow, Urine Clarity Sl. Cloudy, Urine pH 7.0, Ur Specific [place] 1.005, Urine Protein 100 H, Urine Glucose (UA) Normal, Urine Ketones Negative, Urine Occult Blood Negative, Urine Nitrite Negative, Urine Bilirubin Negative, Urine Urobilinogen Normal, Ur Leukocyte Esterase 25 H, Urine RBC 0 SEEN, Urine WBC 0-5 SEEN, Ur Squamous Epith Cells 0-5 SEEN, Urine Bacteria 0 SEEN, Urine Mucus 0 SEEN 03/21/20 12:35: Troponin I < 0.015 03/21/20 12:42: POC Glucose 137 H 03/21/20 16:38: POC Glucose 130 H 03/21/20 21:11: POC Glucose 135 H 03/22/20 00:25: POC Glucose 128 H 03/22/20 05:02: WBC 14.2 H, RBC 4.76, Hgb 12.3, Hct 40.3, MCV 84.7, MCH 25.8 L, MCHC 30.5 L, RDW Std Deviation 42.8, RDW Coeff of Chad 14.2, Plt Count 402, MPV 10.0, Immature Gran % (Auto) 0.500, Neut % (Auto) 62.9, Lymph % (Auto) 27.2, Ector % (Auto) 6.0, Eos % (Auto) 2.5, Baso % (Auto) 0.9, Absolute Neuts (auto) 9.0 H, Absolute Lymphs (auto) 3.86, Nucleated RBC % 0 03/22/20 05:02: Sodium 140, Potassium 3.2 L, Chloride 108 H, Carbon Dioxide 25.0, Anion Gap 7, BUN 9, Creatinine 0.62, Estim Creat Clear Calc 64.98, Est GFR (MDRD) Af Amer 123, Est GFR (MDRD) Non-Af 101, BUN/Creatinine Ratio 14.4, Glucose 83, Calcium 8.4 L, Magnesium 1.4 L, Triglycerides 176, Cholesterol 188, LDL Cholesterol 121, VLDL Cholesterol 35, HDL Cholesterol 32 L 03/22/20 05:31: POC Glucose 81 Current Medications Acetaminophen (Tylenol) 650 mg PO Q6H PRN PRN PRN Reason: Pain Score 1-10/Temp > 100.7 F Al Hydroxide/Mg Hydroxide (Mylanta Ii) 30 ml PO Q6H PRN PRN PRN Reason: Gastric Burning Amlodipine Besylate (Norvasc) 5 mg PO DAILY [facility] Anastrozole (Arimidex) 1 mg PO DAILY [facility] Atorvastatin Calcium (Lipitor) 80 mg PO QHS [facility] Last Admin: 03/21/20 21:00 Dose: Not Given Documented by: Calcium Carbonate (Os-Rian 500) 500 mg PO BIDCM [facility] Last Admin: 03/21/20 16:14 Dose: Not Given Documented by: Dextrose (D50w Syringe) 0 gm IV X1 PRN; Protocol PRN Reason: Hypoglycemia Glucagon () 1 mg IM .X1 PRN PRN Reason: Hypoglycemia Hydralazine HCl (Apresoline Iv) 5 mg IV Q30M PRN PRN Reason: to maintain BP goals Hydrochlorothiazide (Hctz) 25 mg PO DAILY [facility] Potassium Chloride/Sodium Chloride () 1,000 mls @ 100 mls/hr IV .Q10H [facility] Last Admin: 03/22/20 00:58 Dose: 100 mls/hr Documented by: Potassium Chloride () 10 meq in 100 mls @ 100 mls/hr IV BOLUS Q1H [facility] Stop: 03/22/20 11:14 Magnesium Sulfate () 4 gm in 100 mls @ 25 mls/hr IV X1 ONE Stop: 03/22/20 11:13 Insulin Glargine (Lantus (Bkc)) 15 units SC QHS [facility] Last Admin: 03/21/20 21:19 Dose: 15 units Documented by: Insulin Human Lispro (Humalog Kwikpen (Bk)) 0 unit SC Q6 [facility]; Protocol Last Admin: 03/22/20 05:31 Dose: Not Given Documented by: Labetalol HCl (Trandate) 20 mg IV X1 PRN PRN Reason: BLOOD PRESSURE Labetalol HCl (Trandate) 10 - 20 mg IV Q10M PRN PRN PRN Reason: to maintain BP goals Levothyroxine Sodium (Synthroid) 125 mcg PO DAILY@0600 [facility] Last Admin: 03/22/20 05:26 Dose: Not Given Documented by: Lisinopril (Zestril) 10 mg PO BID [facility] Last Admin: 03/21/20 21:01 Dose: Not Given Documented by: Magnesium Hydroxide (Milk Of Magnesia) 30 ml PO DAILY PRN PRN PRN Reason: Constipation Magnesium Oxide (Mag-Ox 400) 400 mg PO BIDCO[facility] Melatonin (Melatonin) 3 mg PO QHS PRN PRN PRN Reason: INSOMNIA Morphine Sulfate () 2 mg IV Q3H PRN PRN PRN Reason: Pain Score 6-10/10 Nitroglycerin (Nitrostat) 0.4 mg SUBLINGUAL Q5M PRN PRN Reason: CARDIAC/CHEST PAIN Ondansetron HCl (Zofran) 4 mg IV Q8H PRN PRN PRN Reason: NAUSEA/VOMITING Oxycodone HCl (Oxyir) 5 mg PO Q4H PRN PRN PRN Reason: Pain Score 4-5/10 Potassium Chloride (K-Dur) 40 meq PO DAILY[facility] Rivaroxaban (Xarelto) 10 mg PO DAILY@1700 [facility] Last Admin: 03/21/20 16:14 Dose: Not Given Documented by: Sodium Chloride () 10 - 40 ml IV UD PRN PRN Reason: SALINE FLUSH Last Admin: 03/22/20 05:25 Dose: 10 ml Documented by: STROKE Vital Signs/Narrative: Vital Signs Temp Pulse Resp BP Pulse Ox 03/22/20 06:52 83 03/22/20 04:40 98.4 F 93 18 161/100 H 95 Medical Necessity - Tobacco Use Smoking Status: Current every day smoker Assessment/Plan All Active Problems (Last Reviewed 03/21/20 @ 11:[address] Ulises Rainey MD) Stroke (Acute) Intertrochanteric fracture of right hip (Acute) Patient is a 64-year-old lady with multiple comorbidities admitted with dysarthria and left-sided weakness 1. Suspected acute CVA ?Patient has been admitted to monitored bed currently being managed with every 4 neurochecks, MRI ordered to confirm the suspicion. Patient also had a 2D echo performed patient is already on antiplatelet therapy did continue -03/22/2020; MRI obtained as part of patient's evaluation demonstrated An acute infarct is present extending from the right urban radiata to the posterior limb of the right internal capsule. No evidence of acute intracranial hemorrhage. Currently on recommended therapy including antiplatelet therapy as well as statin therapy. Patient is scheduled to be evaluated by speech; physical as well as Occupational Therapy. Did discuss with neurology; plan is for patient to be discharged home with a Holter monitor and follow-up with neurology as outpatient 2. Physical debility ?Patient has history of recent right hip fracture for which patient underwent ORIF on 01/12/2020 3. Diabetes mellitus type II - uncontrolled, patient's oral hypoglycemics held. Placed on l Accu-Cheks a.c. and at bedtime and covered with sliding scale insulin 4. Hypertension - Blood pressure controlled, home medications continued with dose adjustment as needed 5. Hypothyroidism - Patient is on levothyroxine home dose continued 6. Previous history of DVTs ?Patient is on Xarelto 7. Tobacco dependence - Counseled on cessation, offered nicotine patch for tobacco cravings 8. History of breast CA ?Currently on remission on anastrozole 9. Vitamin D deficiency ?Patient is on oral supplement 10. Hypokalemia - Repleted as needed 11. Hypomagnesemia - Repleted as needed 12. DVT prophylaxis -patient is on Xarelto Active Medications Acetaminophen (Tylenol) 650 mg PO Q6H PRN PRN PRN Reason: Pain Score 1-10/Temp > 100.7 F Al Hydroxide/Mg Hydroxide (Mylanta Ii) 30 ml PO Q6H PRN PRN PRN Reason: Gastric Burning Amlodipine Besylate (Norvasc) 5 mg PO DAILY [facility] Anastrozole (Arimidex) 1 mg PO DAILY [facility] Atorvastatin Calcium (Lipitor) 80 mg PO QHS [facility] Last Admin: 03/21/20 21:00 Dose: Not Given Documented by: Calcium Carbonate (Os-Rian 500) 500 mg PO BIDCM [facility] Last Admin: 03/21/20 16:14 Dose: Not Given Documented by: Dextrose (D50w Syringe) 0 gm IV X1 PRN; Protocol PRN Reason: Hypoglycemia Glucagon () 1 mg IM .X1 PRN PRN Reason: Hypoglycemia Hydralazine HCl (Apresoline Iv) 5 mg IV Q30M PRN PRN Reason: to maintain BP goals Hydrochlorothiazide (Hctz) 25 mg PO DAILY [facility] Potassium Chloride/Sodium Chloride () 1,000 mls @ 100 mls/hr IV .Q10H [facility] Last Admin: 03/22/20 00:58 Dose: 100 mls/hr Documented by: Potassium Chloride () 10 meq in 100 mls @ 100 mls/hr IV BOLUS Q1H [facility] Stop: 03/22/20 11:29 Magnesium Sulfate () 4 gm in 100 mls @ 25 mls/hr IV X1 ONE Stop: 03/22/20 11:13 Insulin Glargine (Lantus ([facility])) 15 units SC QHS [facility] Last Admin: 03/21/20 21:19 Dose: 15 units Documented by: Insulin Human Lispro (Humalog Kwikpen ([facility])) 0 unit SC Q6 [facility]; Protocol Last Admin: 03/22/20 05:31 Dose: Not Given Documented by: Labetalol HCl (Trandate) 20 mg IV X1 PRN PRN Reason: BLOOD PRESSURE Labetalol HCl (Trandate) 10 - 20 mg IV Q10M PRN PRN PRN Reason: to maintain BP goals Levothyroxine Sodium (Synthroid) 125 mcg PO DAILY@0600 [facility] Last Admin: 03/22/20 05:26 Dose: Not Given Documented by: Lisinopril (Zestril) 10 mg PO BID [facility] Last Admin: 03/21/20 21:01 Dose: Not Given Documented by: Magnesium Hydroxide (Milk Of Magnesia) 30 ml PO DAILY PRN PRN PRN Reason: Constipation Magnesium Oxide (Mag-Ox 400) 400 mg PO BIDCOX BRANSON Melatonin (Melatonin) 3 mg PO QHS PRN PRN PRN Reason: INSOMNIA Morphine Sulfate () 2 mg IV Q3H PRN PRN PRN Reason: Pain Score 6-10/10 Nitroglycerin (Nitrostat) 0.4 mg SUBLINGUAL Q5M PRN PRN Reason: CARDIAC/CHEST PAIN Ondansetron HCl (Zofran) 4 mg IV Q8H PRN PRN PRN Reason: NAUSEA/VOMITING Oxycodone HCl (Oxyir) 5 mg PO Q4H PRN PRN PRN Reason: Pain Score 4-5/10 Potassium Chloride (K-Dur) 40 meq PO DAILYCM [facility] Rivaroxaban (Xarelto) 10 mg PO DAILY@1700 [facility] Last Admin: 03/21/20 16:14 Dose: Not Given Documented by: Sodium Chloride () 10 - 40 ml IV UD PRN PRN Reason: SALINE FLUSH Last Admin: 03/22/20 05:25 Dose: 10 ml Documented by: Inpatient E&M: [id number] Subs Hosp L3
[2020-03-22] MEDS: Potassium Chloride 10mEq/100mL 10 MEQ/100 ML IV.SOLN. 100 MEQ IV BOLUS ×4 (08:23→12:00)
[2020-03-22] MEDS: amLODIPine 5 MG Tablet PO (10:11)
[2020-03-22] MEDS: hydroCHLOROthiazide 25 MG Tablet PO (10:12)
[2020-03-22] MEDS: Lisinopril 10 MG Tablet PO ×2 (10:12→22:26)
[2020-03-22] MEDS: Anastrozole 1 MG Tablet PO (10:12)
[2020-03-22] MEDS: Clopidogrel Bisulfate 75 MG Tablet PO (10:16)
--- NOTE | 2020-03-22 10:18 | CASEMGMT ---
Addendum entered by Josy Montana 03/22/20 12:32: LUIS ARMANDO called patient's and left him a voice mail letting him know that d/c plan is for TCU. Josy WHITTEN AGENT PRODUCER Addendum entered by Josy Montana 03/22/20 12:16: Patient will also need a COVID test before she can go to TCU. These tests are sent out and have been taking 48-72 hours. LUIS ARMANDO notified discharge planner who notified physician that test needs ordered. LUIS ARMANDO spoke with Tamara and she will start the pre-cert. LUIS ARMANDO also spoke with patient and she is okay with going to [facility] TCU for her rehab. She was ok with LUIS ARMANDO calling her to update him on the d/c plan. Josy WHITTEN AGENT PRODUCER Addendum entered by Josy Montana 03/22/20 12:01: LUIS ARMANDO spoke with Kirsten in Rehab and due to physician staffing issues patient would not be able to go to Inpatient Rehab until Friday. Patient would definitely be ready for d/c before then so it was decided to plan for TCU. LUIS ARMANDO called Tamara and left her a message asking her to please start the pre-cert. LUIS ARMANDO will also confirm with patient that this is ok. Josy WHITTEN AGENT PRODUCER Original Note: LUIS ARMANDO completed a PHQ 9 with patient and she scored a 14 which indicates moderate depression. Patient was just in the hospital in January for hip fracture then she went to TCU for rehab. She left TCU February 03 as her son completed suicide. Patient has had an unfortunate chain of events and would benefit from mental health follow up. LUIS ARMANDO spoke with her about [facility] Inpatient Rehab Unit and she agreed to go there if she would be able to do 3 hours of therapy. LUIS ARMANDO will see how patient does and make referral to rehab. LUIS ARMANDO will pass along above concerns to rehab SW if patient does end up going there. Josy DARNELL
[2020-03-22] MEDS: Magnesium Sulfate 4gm/100mL 4 GM/100 ML IV.SOLN. IV (10:20)
[2020-03-22] MEDS: Acetaminophen 325 MG Tablet 650 MG PO (10:58)
[2020-03-22] MEDS: oxyCODONE 5 MG Tablet PO ×2 (10:58→20:09)
[2020-03-22 11:10] LABS: Bedside Glucose 137 mg/dL (70-110)
--- NOTE | 2020-03-22 13:12 | NURSING ---
Updated patient's , Cullen, on patient status and POC at this time.
--- NOTE | 2020-03-22 14:34 | PCM.NTREPORT ---
Nutrition Therapy Report - History Nutrition Services has been consulted to:: Manage nutrient details of diet order, Conduct nutrition education Current diet / nutrition support order:: 1800 calorie controlled, cardiac- puree/honey thick - Anthropometric Measurements Height:: 5 ft Weight:: 50 kg Body Mass Index (BMI):: 21.5 - Relevant Labs Relevant Labs:: WBC 14.2 K/mm3 (4.4-11.0) H 03/22/20 05:02 MCH 25.8 pg (27.0-32.0) L 03/22/20 05:02 MCHC 30.5 g/dL (32-36) L 03/22/20 05:02 Neut % (Auto) 70.3 % (47-70) H 03/21/20 10:45 Absolute Neuts (auto) 9.0 X10^3/uL (2.0-7.7) H 03/22/20 05:02 Potassium 3.2 mmol/L (3.5-5.1) L 03/22/20 05:02 Chloride 108 mmol/L (98-107) H 03/22/20 05:02 Glucose 154 mg/dL (74-106) H 03/21/20 10:45 Calcium 8.4 mg/dL (8.5-10.1) L 03/22/20 05:02 Magnesium 1.4 mg/dL (1.6-2.6) L 03/22/20 05:02 HDL Cholesterol 32 mg/dL (40-) L 03/22/20 05:02 - Assessment Food / Nutrition-Related History:: 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 States she always eats like a bird, but does admit to some decline w/ intake recently and wt loss after hip fx in January. UBW ~120-125#. Per EMR, was 125# on 01/25/20 and CBW 110.2#-14.8#/11.8% wt loss x <3 months, significant for malnutrition. OFFICE AUTOMATION TECHNICIAN evaluated this date, on puree/honey thick diet. Tolerating w/o complaints this afternoon. - Nutrition Diagnosis Problem / Etiology / Signs & Symptoms (PES):: Severe, acute malnutrition related to hip fx in January 2020 as evidenced by estimated PO intake >50% of estimated needs >1 week and 14.8#/11.8% wt loss < 3 months Evidence of Malnutrition Exists:: Yes Severe PCM:: Acute Illness - Nutrition Intervention Nutrition Prescription:: [id number] calories/day, 45-55 g protein/day - Food / Nutrient Delivery Interventions Summary of nutrition intervention:: Will add ensure pudding or magic cup w/ lunch/dinner for additional protein/calories if consumed. Pt w/ no nutritional concerns at this time. Nutrition support ordered as / adjusted to:: 1600 calorie controlled, cardiac; ensure pudding or magic cup BID Nutrition education provided?: No - pt declined - MNT Monitoring Further MNT monitoring and evaluation required?: Yes MNT Follow-up in:: 3-5 days
--- NOTE | 2020-03-22 14:54 | CASEMGMT ---
LUIS ARMANDO received a return call from patient's . LUIS ARMANDO updated him and let him know the plan is TCU whenever she is ready and insurance approves. Josy WHITTEN MSW
[2020-03-22] MEDS: Calcium (Elemental) 500 MG Tablet PO (15:59)
[2020-03-22] MEDS: Magnesium Oxide 400 MG Tablet PO (15:59)
[2020-03-22] MEDS: Rivaroxaban 10 MG Tablet PO (16:00)
[2020-03-22 18:18] LABS: Bacteria 0 SEEN /hpf (None Seen); Mucous, Urine 0 SEEN /hpf (<or=2+); Squamous Epithelial Cells - UA 0 SEEN /hpf (5-10)
[2020-03-22 18:25] LABS: Color, Urine Straw (Yellow); Glucose, Dipstick Normal (Normal); Ketone-Dipstick 15 mg/dl (Negative); Leukocyte Esterase-Dipstick Negative /ul (Negative); Nitrite-Dipstick Negative (Negative); Occult Blood-Urine 250 /ul (Negative); Protein-Dipstick 30 mg/dl (Negative); Specific Gravity, Urine 1.005 (1.002-1.030); Urine Bilirubin Dipstick Negative (Negative); Urine Clarity Clear (Clear); Urine Urobilinogen Normal (Normal)
[2020-03-22 18:37] LABS: Red Blood Cells-Urine 50-100 SEEN /hpf (0-5); White Blood Cells 0-5 SEEN /hpf (0-5)
[2020-03-22] MEDS: Atorvastatin Calcium 80 MG Tablet PO (22:27)
[2020-03-22] MEDS: Insulin Lispro 100 UNIT/ML INSULN.PEN SC (22:35)
[2020-03-22 23:01] LABS: Bedside Glucose 212 mg/dL (70-110)
[2020-03-23] VITALS (7 sets, daily range): BP systolic 131–152; BP diastolic 76–94; PULSE 80–91; RESP 16–18; TEMP 36.8–36.9; O2SAT 94–98; BMI 21.5
[2020-03-23 06:04] LABS: Absolute Lymphocyte Count 3.86 X10^3/uL (0.83-4.51); Absolute Neutrophil Count 10.8 X10^3/uL (2.0-7.7); Basophil# 0.14 X10^3/uL; Basophil% 0.9 % (0-1); Eosinophil# 0.37 X10^3/uL; Eosinophils% 2.3 % (0-5); Hematocrit 39.9 % (37-47); Hemoglobin 12.6 g/dL (12.0-15.0); Lymphocyte # 3.86 X10^3/ul (4.0); Lymphocyte % 24.1 % (19-41); Mean Corp Hgb Conc 31.6 g/dL (32-36); Mean Corpuscular Hgb 25.9 pg (27.0-32.0); Mean Corpuscular Volume 81.9 fL (81-99); Mean Platelet Vol. 10.1 fl (6.2-12.0); Monocyte# 0.78 X10^3/uL; Monocyte% 4.9 % (0-10); NRBC Flagged by Analyzer 0 % (0-5); Neutrophil # 10.76 X10^3/uL (2.7-7.7); Neutrophil % 67.2 % (47-70); Platelet Count 435 K/mm3 (150-450); RBC Distribution Width CV 13.7 % (11.6-14.6); Red Blood Count 4.87 M/mm3 (4.2-5.4)
[2020-03-23 06:31] LABS: Anion Gap 8 (5-15); BUN 7 mg/dL (7-18); BUN/Creat Ratio 10.8 RATIO (10-20); Calcium,Total 8.5 mg/dL (8.5-10.1); Chloride 107 mmol/L (98-107); Creatinine, Serum 0.65 mg/dL (0.55-1.02); EST Glomerular Filtration Rate 98 mL/min (>60); Est Glom Filt Rate - Afr Amer 118 mL/min (>60); Estimated Creatinine Clearance 61.98 ml/min; Glucose 125 mg/dL (74-106); Potassium 3.7 mmol/L (3.5-5.1); Sodium Level 138 mmol/L (136-145)
[2020-03-23] MEDS: Levothyroxine 125 MCG Tablet PO (06:39)
[2020-03-23 06:56] LABS: Bedside Glucose 133 mg/dL (70-110)
[2020-03-23] MEDS: Magnesium Oxide 400 MG Tablet PO ×2 (08:29→16:47)
[2020-03-23] MEDS: Calcium (Elemental) 500 MG Tablet PO ×2 (08:30→16:47)
[2020-03-23] MEDS: Anastrozole 1 MG Tablet PO (08:30)
[2020-03-23] MEDS: hydroCHLOROthiazide 25 MG Tablet PO (08:31)
[2020-03-23] MEDS: Lisinopril 10 MG Tablet PO (08:31)
[2020-03-23] MEDS: Clopidogrel Bisulfate 75 MG Tablet PO (08:31)
[2020-03-23] MEDS: amLODIPine 5 MG Tablet PO (08:31)
[2020-03-23] MEDS: Insulin Lispro 100 UNIT/ML INSULN.PEN SC (12:06)
[2020-03-23 12:11] LABS: Bedside Glucose 225 mg/dL (70-110)
--- NOTE | 2020-03-23 16:21 | NURSING ---
Phone call received from Tamara Marina informing that pre-cert came through and bed is available. Dr Funes informed.
[2020-03-23] MEDS: Rivaroxaban 10 MG Tablet PO (16:48)
--- NOTE | 2020-03-23 16:54 | PCM.TXEXTCAR ---
- Diet 03/22/20 10:06 Diet: Cardiac: Calorie-Controlled Food consistency:: Puree Liquid Consistency:: Honey Thick Is pt able to select menu?: Yes Diet Comments: 1:1 supervision, all bite/sip by tsp, HOB 90, meds crushed w/ pureed How many daily calories?: 1600 calorie - Routine Orders/Code Status Routine Lab Work: - - Fingerstick blood sugars before meals /nightly-sliding scale insulin with Humalog subcu per protocol: 200-250: 5 units subcu, 251-300: 8 units subcu, 301-350: 12 units subcu - Therapies Weight Bearing: Full weight bearing Physical Therapy: Eval and Treat Occupational Therapy: Eval and Treat Speech Therapy: Eval and Treat - Problem/Diagnosis (1) Acute infarct right urban radiata Status: Acute Current Visit: Yes (2) Osteoarthritis Status: Chronic Current Visit: No (3) Type 2 diabetes mellitus Status: Chronic Current Visit: No (4) Hypothyroidism Status: Chronic Current Visit: No (5) High blood pressure Status: Chronic Current Visit: No (6) Breast cancer Status: Chronic Current Visit: No - Allergies/Procedures Done in Hospital Allergies/Adverse Reactions: Allergies aspirin Allergy (Unknown, Verified 03/21/20 10:36) Nausea albuterol Adverse Reaction (Verified 03/21/20 10:36) I GET VERY SHAKEY/HYPERVENTILATING Penicillins Adverse Reaction (Verified 03/21/20 10:36) Nausea/Vom/Diarrhea Procedures: 2-D Echocardiogram - Type of Care/Length of Stay Estimated LOS: Convalescent Care Less Than 30 days Type of Care Needed: Skilled Rehab Potential: Good Prognosis: Good - Additional Orders/Day of Discharge H&P will serve as current which was dated: 03/21/20 Day of Discharge: 03/23/20 - Dietary and Speech Recommendations Dietitian Recommendations/Changes: Will change diet to cardiac, 1600 calorie controlled diet- consistency per REGISTERED ASSOCIATE. If PO intake declines, will consider liberalizing diet. Will add ONS w/ meals for additional calories/protein if consumed. Speech Linguistic Eval Summary: Tearful throughout evaluation. Informal evaluation completed this date. Oriented except day of week, off by one. Simple/complex yes/no ?s 100% accuracy. 1 & 2 step commands 100% accuracy, 0% w/ complex/3 step commands. Able to read at the phrase level - further assessment recommended. No appreciated neglect or field cut. Picture naming - 100% accuracy. ID by function WNL w/ min prompting. Divergent naming - 8 items named w/in 45 seconds, patient discontinued d/t dysarthria/difficulty expressing words rather than inability to recall/generate additional responses. Immediate recall 3/3 words; delayed recall 2/3 words, able to recall 3/3 w/ category cue. Severe flaccid dysarthria characterized by reduced breath support and articulatory precision. Education provided re: compensatory strategy use to improve speech intelligibility and listener comprehension for expression and wants/needs. Recommend inpatient rehabilitation for intensive skilled ST intervention following acute care stay w/ the goal of returning home at the highest level of independent function, expressing wants/needs independently & tolerating the least restrictive means of nutrition hydration possible. Additional assessment of cognitive-lingusitic function recommended at next level of care w/ additional goals to be established as appropriate. - Follow Up Care Primary Care Physician: Tera Butts MD [Primary Care Provider] -
[2020-03-23 17:00] LABS: Bedside Glucose 120 mg/dL (70-110)
--- NOTE | 2020-03-23 17:16 | NURSING ---
Report called to TCU nurse.
--- NOTE | 2020-03-30 14:34 | PCM.DC.SUM ---
Discharge Date and Diagnosis - Problem List Patient Problems: Active and Suspected Problems (Last Reviewed 03/21/20 @ 11:[address] Ulises Rainey MD) Dysarthria (Acute) Left hemiparesis (Acute) Date of Admission: 03/21/20 Date of Discharge: 03/23/20 - Primary Discharge Diagnosis Acute Problems: Active Problems (Last Reviewed 03/21/20 @ 11:[address] Ulises Rainey MD) #1 acute ischemic stroke from right urban radiata to the posterior limb of the right internal capsule #2 essential hypertension #3 type 2 diabetes #4 hypokalemia #5 hypomagnesemia #6 leukocytosis-etiology unknown - Secondary Discharge Diagnosis Chronic Problems: Chronic Problems (Last Reviewed 03/21/20 @ 11:[address] Ulises Rainey MD) Fall (Chronic) Sacral fracture (Chronic) Vertigo (Chronic) Osteoarthritis (Chronic) Hypokalemia (Chronic) Marijuana smoker, continuous (Chronic) Marijuana abuse (Chronic) Closed right hip fracture (Chronic) DVT (deep venous thrombosis) (Chronic) Tobacco abuse (Chronic) Type 2 diabetes mellitus (Chronic) Hypothyroidism (Chronic) Vision problems (Chronic) Thyroid disease (Chronic) High blood pressure (Chronic) Hearing problem (Chronic) Diabetes (Chronic) Carpal tunnel syndrome (Chronic) Breast cancer (Chronic) Asthma (Chronic) Arthritis (Chronic) Hospital Course and Treatment Operations: None, - - Right hip ORIF, intramedullary nail fixation Procedures: 2-D Echocardiogram Summary of Care Provided: The patient is a 64 year old F was seen in the emergency room at [facility] with a chief complaint of slurred speech and left-sided weakness. Patient did complain of a headache. Work-up in the emergency room included a CBC which showed an elevated white blood cell count at 16.2, chemistries were unremarkable, CT of the brain showed an old lacunar infarct, CT of the head and neck for negative for significant stenosis. Patient was evaluated by a neurologist from [facility] via tele-consultation, it was felt that the patient was not a candidate for TPA due to the time of onset of symptoms and also the fact the patient was on Xarelto. Patient was admitted to PCU, MRI was obtained which showed an acute stroke of the right urban radiata and right internal capsule. Patient was seen by PT OT and speech therapy, echocardiogram was obtained which showed no evidence of thrombus with a normal ejection fraction. It was felt that the patient would be a candidate for a short stay in inpatient rehab. On 03/23/2020, patient was seen and examined: On examination she appeared in good health and spirits, she does not appear to be in any distress. Vital signs as documented. Skin warm and dry and without overt rashes. Neck without JVD, thyroid appears normal, trachea is midline, neck is supple. Lungs clear, normal air movement was noted. Heart exam notable for regular rhythm, normal sounds and absence of murmurs, rubs or gallops. Abdomen unremarkable and without evidence of organomegaly, masses, or abdominal aortic enlargement, bowel sounds are present in all 4 quadrants, no abdominal tenderness was noted. Extremities nonedematous, no cyanosis was noted, no clubbing was noted. Neuro: Cranial nerves II through XII are grossly intact, mild left-sided upper extremity weakness was noted, sensation to light touch and pinprick is intact. Psych: Patient is alert and oriented x3, she does not appear anxious or depressed, she does not appear agitated. On 03/23/2020, patient was transferred to TCU for inpatient rehab services. Patient Problems: Active and Suspected Problems (Last Reviewed 03/21/20 @ 11:[address] Ulises Rainey MD) Dysarthria (Acute) Left hemiparesis (Acute) - Physical Exam Vitals/I&O's: Vital Signs Temp Pulse Resp BP Pulse Ox 98.2 F 86 16 145/88 H 98 03/23/20 16:58 03/23/20 16:58 03/23/20 16:58 03/23/20 16:58 03/23/20 16:58 Oxygen Delivery Method Room Air Weight: 50 kg Body Mass Index (BMI) 21.5 Finger Stick Blood Glucose 154 Home Medications: Medications to take at Discharge Alendronate Sodium [Fosamax] 70 mg PO QWEEK 03/21/20 Amlodipine [Norvasc] 5 mg PO DAILY 03/21/20 Anastrozole [Arimidex] 1 mg PO DAILY 03/21/20 Calcium Carbonate [Calcium] 600 mg PO BID 03/21/20 Hydrochlorothiazide [Hctz] 25 mg PO DAILY 03/21/20 Insulin Glargine [Lantus SoloStar Pen] 15 units SUBCUT QHS 03/21/20 Levothyroxine [Synthroid] 125 mcg PO DAILY@0600 03/21/20 Potassium Chloride [K-Dur] 40 meq PO DAILYCM 03/21/20 Rivaroxaban [Xarelto] 10 mg PO DAILY@1700 03/21/20 Acetaminophen [Tylenol Tablet] 650 mg PO Q6H PRN PRN tab 03/23/20 Atorvastatin Calcium [Lipitor] 80 mg PO QHS 03/23/20 Cholecalciferol (VIT D3) [Vitamin D] 2,000 unit PO DAILY 03/23/20 Clopidogrel Bisulfate [Plavix] 75 mg PO DAILY 03/23/20 Lisinopril [Zestril] 10 mg PO BID 03/23/20 Magnesium Oxide [Mag-Ox 400] 400 mg PO BIDCM 03/23/20 Nicotine [Nicoderm Cq] 21 mg TRANSDERM. DAILY 03/23/20 metFORMIN HCl [Glucophage] 500 mg PO BIDCM 03/23/20 Primary Care Physician: Tera Butts MD [Primary Care Provider] - Disposition: Senior Care facility Minutes spent on discharge:: 32 Patient Condition:: Stable Medical Necessity - Tobacco Use Smoking Status: Heavy Smoker (>10/day) Tobacco Use: Cigarettes Meaningful Use Info Meaningful Use Diagnoses (Choose all that apply): Ischemic CVA - CVA Therapy Assessed for PT,OT and/or ST?: Yes - Ischemic Stroke Antithrombotic order at d/c?: Yes Dx of Atrial fib/flutter?: No Anticoagulant at discharge?: Yes Statins at discharge?: Yes Primary Dx Acute Ischemic CVA?: Yes IV tPA ordered during stay?: No Reason IV t-PA not ordered: Treatment not Indicated Inpatient E&M: 34185 Disch Hosp
== END 2020-03-23 17:50 | disposition skilled nursing facility (03) | DRG 66 ==
LOC: ED 11:22 → PCU 11:36
PROVIDERS: Admitting Provider Internal Medicine; Emergency Provider Emergency Medicine; PCP Internal Medicine; Visit Provider Internal Medicine
DX: I63.9 Cerebral infarction, unspecified (principal); E11.65 Type 2 diabetes mellitus with hyperglycemia; R47.1 Dysarthria and anarthria; E55.9 Vitamin D deficiency, unspecified; I10 Essential (primary) hypertension; E03.9 Hypothyroidism, unspecified; Z79.01 Long term (current) use of anticoagulants; Z86.718 Personal history of other venous thrombosis and embolism; Z85.3 Personal history of malignant neoplasm of breast; F17.200 Nicotine dependence, unspecified, uncomplicated; E87.6 Hypokalemia; Z79.4 Long term (current) use of insulin; Z79.83 Long term (current) use of bisphosphonates; Z79.890 Hormone replacement therapy; R29.703 NIHSS score 3; F12.90 Cannabis use, unspecified, uncomplicated; J45.909 Unspecified asthma, uncomplicated; Z86.73 Personal history of transient ischemic attack (TIA), and cerebral infarction without residual deficits
CPT/HCPCS: 36415; 70450; 70496; 70498; 70551; 80048; 80061; 81001; 82962; 83735; 84484; 85025; 85610; 85730; 87086; 87088; 87186; 87635; 92523; 92610; 93005; 93306; 94762; 97116; 97162; 97166; 97530; 97535; 97802; 99251; 99285; 99406; G2023; J7030; Q9957; Q9967; A4216; C8929; G0463; U0003

== ENCOUNTER 2020-03-23 18:10 | Inpatient (IN) | payer BC, SELFPAY ==
[2020-03-23 10:35] VITALS: BMI 21.5
[2020-03-23 18:15] VITALS: BP 158/97; PULSE 94; RESP 16; TEMP 37.3; O2SAT 95; BMI 21.5
[2020-03-23] MEDS: Acetaminophen 325 MG Tablet 650 MG PO (20:43)
--- NOTE | 2020-03-23 20:44 | HP.PCM_ITS ---
Problem List (1) Dysarthria Status: Acute (2) Left hemiparesis Status: Acute (3) Marijuana abuse Status: Chronic (4) Closed right hip fracture Status: Chronic (5) DVT (deep venous thrombosis) Status: Chronic (6) Tobacco abuse Status: Chronic (7) Debility Status: Acute (8) Stroke Status: Acute (9) Vertigo Status: Chronic (10) Osteoarthritis Status: Chronic (11) Hypokalemia Status: Chronic (12) Hypothyroidism Status: Chronic (13) High blood pressure Status: Chronic (14) Diabetes Status: Chronic (15) Breast cancer Status: Chronic (16) Asthma Status: Chronic History of Present Illness Date of Admission: 03/23/20 Chief Complaint: Here for rehabilitation, strengthening, prior to discharge home with . 03/21/2020 The patient is a 64 year old Female with below past medical history presented to [facility] [place] Emergency Department with slurred speech, left sided weakness. 03/21/2020 CT brain chronic involutional changes of brain, old lacunar infarcts in bilateral basal ganglia. 03/21/2020 CTA head, neck, minimal nonstenotic calcific plaques origins bilateral internal carotid arteries. Headache, slurred speech, left sided weakness. EKG sinus rhythm, nonspecific ST changes. WBC 16.2, Hemoglobin 13, Hematocrit 44, Platelets 450, BMP okay. INR 1.0, Troponin negative, glucose 154. Not tPA candidate due to time, and already on Xarelto for DVT. Telestroke recommended transfer to tertiary center if large vessel occlusion. 03/21/2020 Admit to Hospital. 03/21/2020 MRI brain confirmed right stroke. 03/21/2020 Echo EF 65%. Mild aortic stenosis. negative bubble study for shunt. 03/21/2020 Telestroke recommended Holter monitor, hypercoagulable panel, Atorvastatin 40MG QHS, NPO until passing swallowing evaluation. 03/23/2020 Admit to TCU with debility, here for rehabilitation, strengthening, prior to discharge home with . Past Medical History Past Medical History (Chronic Problems): Chronic Problems (Last Reviewed 03/21/20 @ 11:[address] Ulises Rainey MD) Fall (Chronic) Sacral fracture (Chronic) Vertigo (Chronic) Osteoarthritis (Chronic) Hypokalemia (Chronic) Marijuana smoker, continuous (Chronic) Marijuana abuse (Chronic) Closed right hip fracture (Chronic) DVT (deep venous thrombosis) (Chronic) Tobacco abuse (Chronic) Type 2 diabetes mellitus (Chronic) Hypothyroidism (Chronic) Vision problems (Chronic) Thyroid disease (Chronic) High blood pressure (Chronic) Hearing problem (Chronic) Diabetes (Chronic) Carpal tunnel syndrome (Chronic) Breast cancer (Chronic) Asthma (Chronic) Arthritis (Chronic) Medical History: Medical History (Last Reviewed 03/21/20 @ 11:[address] Ulises Rainey MD) Vision problems (Chronic) H54.7 Thyroid disease (Chronic) E07.9 High blood pressure (Chronic) I10 Hearing problem (Chronic) H91.90 Diabetes (Chronic) E11.9 Carpal tunnel syndrome (Chronic) G56.00 Breast cancer (Chronic) C50.919 Asthma (Chronic) J45.909 Arthritis (Chronic) M19.90 Allergies aspirin Allergy (Unknown, Verified 03/21/20 10:36) Nausea albuterol Adverse Reaction (Verified 03/21/20 10:36) I GET VERY SHAKEY/HYPERVENTILATING Penicillins Adverse Reaction (Verified 03/21/20 10:36) Nausea/Vom/Diarrhea Home Medications: Ambulatory Orders Medication Instructions Recorded Alendronate Sodium [Fosamax] 70 mg PO QWEEK 03/21/20 Amlodipine [Norvasc] 5 mg PO DAILY 03/21/20 Anastrozole [Arimidex] 1 mg PO DAILY 03/21/20 Calcium Carbonate [Calcium] 600 mg PO BID 03/21/20 Hydrochlorothiazide [Hctz] 25 mg PO DAILY 03/21/20 Insulin Glargine [Lantus SoloStar 15 units SUBCUT QHS 03/21/20 Pen] Levothyroxine [Synthroid] 125 mcg PO DAILY@0600 03/21/20 Potassium Chloride [K-Dur] 40 meq PO DAILYCM 03/21/20 Rivaroxaban [Xarelto] 10 mg PO DAILY@1700 03/21/20 Acetaminophen [Tylenol Tablet] 650 mg PO Q6H PRN PRN tab 03/23/20 Atorvastatin Calcium [Lipitor] 80 mg PO QHS 03/23/20 Cholecalciferol (VIT D3) [Vitamin 2,000 unit PO DAILY 03/23/20 D] Clopidogrel Bisulfate [Plavix] 75 mg PO DAILY 03/23/20 Lisinopril [Zestril] 10 mg PO BID 03/23/20 Magnesium Oxide [Mag-Ox 400] 400 mg PO BIDCM 03/23/20 Nicotine [Nicoderm Cq] 21 mg TRANSDERM. DAILY 03/23/20 metFORMIN HCl [Glucophage] 500 mg PO BIDCM 03/23/20 Surgical History: - - ORIF right hip, intramedullary nail, locked 01/11/2020. 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 - *Family History Maternal Family History: Family History (Last Reviewed 03/21/20 @ 11:[address] Ulises Rainey MD) Father Cancer Brother Heart disease History Items: No pertinent history Paternal Family History: Family History (Last Reviewed 03/21/20 @ 11:[address] Ulises Rainey MD) Father Cancer Brother Heart disease History Items: No pertinent history Review of Systems Constitutional: Denies: Chills, Fever, Weight Change HEENT: Denies: Head Aches, Sinus Congestion, Sinus Drainage Cardiovascular: Denies: Chest Pain, Palpitations Respiratory: Denies: Cough, Shortness of breath at rest, Sputum production Gastrointestinal: Denies: Abdominal Pain, Nausea, Vomiting Genitourinary: Denies: Dysuria Musculoskeletal: Denies: Joint Pain, Joint Tenderness Skin: Denies: Rash, Wounds Neurological: Reports: Focal weakness - Left lower extremity.. Denies: Numbness, Tingling Psychiatric: Denies: Anxiety, Depression, Homicidal Ideations, Suicidal Ideations Hematologic/ Lymphatic: Denies: Easy Bruising, Easy Bleeding VTE Information - Inpt Only VTE Present on Admission: No VTE Mechan Device Prophylaxis: Knee High NAVEEN Hose VTE Pharm Prophylaxis ordered?: No Reason prophylaxis not ordered:: Treatment Not Indicated Patient Problems: Active and Suspected Problems (Last Reviewed 03/21/20 @ 11:[address] Ulises Rainey MD) Dysarthria (Acute) Left hemiparesis (Acute) - Physical Exam Vitals/I&O's: Vital Signs Temp Pulse Resp BP Pulse Ox 99.1 F 94 16 158/97 H 95 03/23/20 18:15 03/23/20 18:15 03/23/20 18:15 03/23/20 18:15 03/23/20 18:15 Oxygen Delivery Method Room Air Weight: 50.1 kg Body Mass Index (BMI) 21.5 Finger Stick Blood Glucose 154 General: Alert, Oriented x3, Cooperative HEENT: Atraumatic, PERRLA, EOMI, Normocephalic Neck: Supple, No JVD, Negative Carotid Bruits Lungs: Clear to auscultation, Normal air movement Cardiovascular: Regular rate, No murmurs Abdomen: Bowel Sounds Present, Soft, Non Tender Extremities: No edema, Capillary Refill Less than 3 Seconds Skin: No rashes, No breakdown Musculoskeletal: No Tenderness to Palpation of Joints or Extremities Neurological: Cranial nerves II-XII grossly intact, - - Mild left hemiparesis. Psych/Mental Status: Normal Affect, Appropriate Laboratory Results 03/23/20 19:55: COVID-19 ([facility]) Pending Current Medications Acetaminophen (Tylenol) 650 mg PO Q6H PRN PRN PRN Reason: Pain Score 1-10/Temp > 100.7 F Alendronate Sodium (Fosamax) 70 mg PO QWEEK [facility] Amlodipine Besylate (Norvasc) 5 mg PO DAILY [facility] Anastrozole (Arimidex) 1 mg PO DAILY [facility] Atorvastatin Calcium (Lipitor) 80 mg PO QHS [facility] Calamine/Phenol (Calmoseptine Ointment) 1 applic TOPICAL 0600,2200 [facility]; Protocol Calcium Carbonate ([facility]Rian 500) [facility] Cholecalciferol (Vitamin D (25mcg)) 2,000 unit PO DAILY [facility] Clopidogrel Bisulfate (Plavix) 75 mg PO DAILY [facility] Hydrochlorothiazide (Hctz) 25 mg PO DAILY [facility] Insulin Glargine (Lantus (Bkc)) 15 units SC QHS [facility] Insulin Human Lispro (Humalog Kwikpen (Bkc)) 0 unit SC ACHS [facility]; Protocol Levothyroxine Sodium (Synthroid) 125 mcg PO DAILY@0600 [facility] Lisinopril (Zestril) 10 mg PO BID [facility] Magnesium Oxide (Mag-Ox 400) [facility] Metformin HCl (Glucophage) [facility] Nicotine (Nicoderm Cq (Pbkc)) 21 mg TRANSDERM. DAILY [facility] Potassium Chloride (K-Dur) 40 meq [facility] Rivaroxaban (Xarelto) 10 mg PO DAILY@1700 [facility] Tuberculin PPD (Tubersol, Aplisol, Ppd) 5 tu ID X1 ONE Stop: 03/24/20 10:01 Tuberculin PPD (Tubersol, Aplisol, Ppd) 5 tu ID X1 ONE Stop: 03/31/20 10:01 Assessment/Plan All Active Problems (Last Reviewed 03/21/20 @ 11:[address] Ulises Rainey MD) Debility (Acute) Stroke (Acute) Acute infarct right urban radiata (Acute) Dysarthria (Acute) Left hemiparesis (Acute) Intertrochanteric fracture of right hip (Acute) 64 year old female with below past medical history hospitalized for right sided stroke, admitted to TCU with debility, here for rehabilitation, strengthening, prior to discharge home with . * Debility - PT/OT. * Dysphagia - ST. * Pain - Tylenol 1000MG Q6H PRN pain (1-10). * Bowel - Miralax 17GM daily, Senna/colace 1 tablet BID, Dulcolax 10MG [place] daily PRN. * Adult immunization - Administer Prevnar 13, Pneumovax 23, Fluzone as appropriate. * DVT prophylaxis - Not necessary, already on Xarelto. * Osteoporosis - Alendronate 70MG Qweek. * Hypertension - Amlodipine 5MG daily, Lisinopril 10MG daily, HCTZ 25MG daily. * Breast Cancer - Anastrozole 1MG daily. * Hyperlipidemia - High intensity Atorvastatin 80MG QHS. * Calcium deficiency - Calcium 500MG BID. * Vitamin D deficiency - D3 2000IU daily. * Stroke - Plavix 75MG daily, Xarelto 10MG daily. * Diabetes Mellitus II - Metformin 500MG BID, Lantus 15 units QHS. * Hypothyroidism - Levothyroxine 125MCG daily. * Hypomagnesemia - Magnesium Oxide 400MG BID. * Skin irritation - Calmoseptine BID. * Tobacco Abuse - Nicotine 21MG patch daily. * Hypokalemia - K-Dur 40MEQ daily. * DVT - Xarelto 10MG daily.
[2020-03-23] MEDS: Atorvastatin Calcium 80 MG Tablet PO (20:53)
[2020-03-23] MEDS: Menthol/Lanolin/Calamine/Znox 113 GM Tube 1 APPLIC TOPICAL (20:58)
[2020-03-23 22:16] LABS: Bedside Glucose 220 mg/dL (70-110)
[2020-03-24 06:12] LABS: Absolute Lymphocyte Count 3.61 X10^3/uL (0.83-4.51); Absolute Neutrophil Count 6.2 X10^3/uL (2.0-7.7); Basophil# 0.12 X10^3/uL; Basophil% 1.1 % (0-1); Eosinophil# 0.39 X10^3/uL; Eosinophils% 3.5 % (0-5); Hematocrit 40.1 % (37-47); Hemoglobin 12.5 g/dL (12.0-15.0); Lymphocyte # 3.61 X10^3/ul (4.0); Lymphocyte % 32.8 % (19-41); Mean Corp Hgb Conc 31.2 g/dL (32-36); Mean Corpuscular Hgb 26.2 pg (27.0-32.0); Mean Corpuscular Volume 84.1 fL (81-99); Mean Platelet Vol. 10.3 fl (6.2-12.0); Monocyte# 0.64 X10^3/uL; Monocyte% 5.8 % (0-10); NRBC Flagged by Analyzer 0 % (0-5); Neutrophil # 6.19 X10^3/uL (2.7-7.7); Neutrophil % 56.2 % (47-70); Platelet Count 401 K/mm3 (150-450); RBC Distribution Width CV 14.2 % (11.6-14.6); RBC Distribution Width SD 43.2 fl (35.1-43.9); Red Blood Count 4.77 M/mm3 (4.2-5.4)
[2020-03-24 06:25] LABS: Anion Gap 6 (5-15); BUN 10 mg/dL (7-18); BUN/Creat Ratio 12.7 RATIO (10-20); Calcium,Total 8.9 mg/dL (8.5-10.1); Chloride 108 mmol/L (98-107); Creatinine, Serum 0.79 mg/dL (0.55-1.02); EST Glomerular Filtration Rate 78 mL/min (>60); Est Glom Filt Rate - Afr Amer 94 mL/min (>60); Glucose 146 mg/dL (74-106); Sodium Level 139 mmol/L (136-145)
[2020-03-24 06:41] LABS: Bedside Glucose 152 mg/dL (70-110)
[2020-03-24 06:59] VITALS: BP 131/70; PULSE 80; RESP 14; TEMP 36.6; O2SAT 94
[2020-03-24] MEDS: Anastrozole 1 MG Tablet PO (07:02)
[2020-03-24] MEDS: Menthol/Lanolin/Calamine/Znox 113 GM Tube 1 APPLIC TOPICAL ×2 (07:03→21:52)
[2020-03-24] MEDS: hydroCHLOROthiazide 25 MG Tablet PO (07:04)
[2020-03-24] MEDS: Polyethylene Glycol 3350 17 GM PACKET PO (07:05)
[2020-03-24] MEDS: amLODIPine 5 MG Tablet PO (07:05)
[2020-03-24] MEDS: Clopidogrel Bisulfate 75 MG Tablet PO (07:06)
[2020-03-24] MEDS: Senna/Docusate Sodium 1 Tablet PO ×2 (07:06→17:53)
[2020-03-24] MEDS: Levothyroxine 125 MCG Tablet PO (07:07)
[2020-03-24] MEDS: Lisinopril 10 MG Tablet PO ×2 (07:07→17:54)
--- NOTE | 2020-03-24 07:14 | NURSING ---
nicotine patch removed on rt arm and new reapplied to lt upper arm
[2020-03-24] MEDS: metFORMIN HCl 500 MG Tablet PO ×2 (09:23→17:51)
[2020-03-24] MEDS: Calcium (Elemental) 500 MG Tablet PO ×2 (09:23→17:52)
[2020-03-24] MEDS: Magnesium Oxide 400 MG Tablet PO ×2 (09:23→17:51)
[2020-03-24 11:36] LABS: Bedside Glucose 281 mg/dL (70-110)
[2020-03-24] MEDS: Tuberculin,Purif.prot.deriv. 50 TU/ML Vial 5 ML ID (12:00)
--- NOTE | 2020-03-24 12:02 | CASEMGMT ---
Social Work Multiple staff members noted pt to be very tearful. Met with patient to complete initial assessment. While conversing with pt, she became tearful when relaying her wedding anniversary is 03/29. She apologized for getting emotional and stated I just cry all the time now, but they told me it is because of my stroke. Provided emotional support and confirmed it is common to be tearful/emotional after a stroke. Inquired about reason behind tearfulness when speaking about anniversary - pt explained I'm happy but because I'm here. Validated feelings and offered a video call, if able, with on that date. Pt appreciative. Pt opened up about son's suicide about a month ago the previous admission in TCU. Discussed pt's feelings, personal details on the relationship between the son and pt, and son's personal life. Pt very tearful during discussion. Continued to provide supportive listening. Discussed coping mechanisms. Pt expressed she does like to talk about her feelings, enjoys playing cards, is orthodox and has good family support. Offered counseling - pt agreed and for SW to make appt at [facility]. Offered Cushion Former visits - pt agreed. Offered medications - pt agreeable. Pt overall stated 2020 has been bad and COVID-19 has been making me depressed. Validated feelings. SW inquired about care at home and needs being met. Pt explained her son and have a routine and take very good care of her. Inquired about showers. Pt stated her shower doesn't work - the shower head is broken and has not replaced it yet; therefore, pt has not gotten a shower for awhile. does try to give pt bed baths every other day. SW observed pt could benefit from a shower. SW provided ongoing emotional support and active listening. Provided pt with name and phone number to contact any time. Pt very appreciative. Notified speech correction assistant and shower was given and fingernails were cleaned on this date. OT to complete morning ADL on following date. Referral made to mission support specialist. Notified physician of request for medications. Will continue to follow. CARIE Rivera
[2020-03-24] MEDS: Acetaminophen 500 MG Tablet 1000 MG PO (13:28)
--- NOTE | 2020-03-24 14:27 | PCM.PN.RX ---
<Jah Loyola D - Last Filed: 03/24/20 14:27> Progress Note - Pharmacy Subjective: TCU Admission Objective: Allergies aspirin Allergy (Unknown, Verified 03/21/20 10:36) Nausea albuterol Adverse Reaction (Verified 03/21/20 10:36) I GET VERY SHAKEY/HYPERVENTILATING Penicillins Adverse Reaction (Verified 03/21/20 10:36) Nausea/Vom/Diarrhea Current Medications Generic Name Dose Route Start Last Admin Trade Name Freq PRN Reason Stop Dose Admin Acetaminophen 1,000 mg 03/23/20 21:01 03/24/20 13:28 Tylenol PO 1,000 mg Q6H PRN PRN Administration Pain Score 1-3/10 Alendronate Sodium 70 mg 03/27/20 06:00 Fosamax PO Mo@0600 [facility] Amlodipine Besylate 5 mg 03/24/20 06:00 03/24/20 07:05 Norvasc PO 5 mg DAILY [facility] Administration Anastrozole 1 mg 03/24/20 06:00 03/24/20 07:02 Arimidex PO 1 mg DAILY [facility] Administration Atorvastatin Calcium 80 mg 03/23/20 22:00 03/23/20 20:53 Lipitor PO 80 mg QHS [facility] Administration Baclofen 10 mg 03/24/20 22:00 Lioresal PO 03/31/20 22:01 QHS [facility] Bisacodyl 10 mg 03/23/20 21:01 Dulcolax RECTAL DAILY PRN Constipation Calamine/Phenol 1 applic 03/23/20 22:00 03/24/20 07:03 Calmoseptine Ointment TOPICAL 1 applicatio 0600,2200 [facility] Administration Protocol Calcium Carbonate 500 mg 03/24/20 08:00 03/24/20 09:23 Os-Rian 500 PO 500 mg BIDCM [facility] Administration Cholecalciferol 2,000 unit 03/24/20 06:00 03/24/20 07:07 Vitamin D (25mcg) PO 2,000 unit DAILY [facility] Administration Clopidogrel Bisulfate 75 mg 03/24/20 06:00 03/24/20 07:06 Plavix PO 75 mg DAILY [facility] Administration Hydrochlorothiazide 25 mg 03/24/20 06:00 03/24/20 07:04 Hctz PO 25 mg DAILY [facility] Administration Insulin Glargine 15 units 03/23/20 22:00 03/23/20 23:18 Lantus ([facility]) SC 15 u QHS [facility] Administration Insulin Human Lispro 5 unit 03/24/20 16:45 Humalog Kwikpen ([facility]) SC TIDAC [facility] Levothyroxine Sodium 125 mcg 03/24/20 06:00 03/24/20 07:07 Synthroid PO 125 mcg DAILY@0600 [facility] Administration Lisinopril 10 mg 03/24/20 06:00 03/24/20 07:07 Zestril PO 10 mg BID [facility] Administration Magnesium Oxide 400 mg 03/24/20 08:00 03/24/20 09:23 Mag-Ox 400 PO 400 mg BIDCM [facility] Administration Metformin HCl 500 mg 03/24/20 08:00 03/24/20 09:23 Glucophage PO 500 mg BIDCM [facility] Administration Mirtazapine 7.5 mg 03/24/20 22:00 Remeron PO QHS [facility] Nicotine 21 mg 03/24/20 06:00 03/24/20 07:05 Nicoderm Cq ([facility]) TRANSDERM. 21 mg DAILY [facility] Administration Polyethylene Glycol 17 gm 03/24/20 06:00 03/24/20 07:05 Miralax PO 17 gm DAILY [facility] Administration Potassium Chloride 40 meq 03/24/20 08:00 03/24/20 09:23 K[facility]Dur [facility] Administration Rivaroxaban 10 mg 03/24/20 17:00 Xarelto PO DAILY@1700 [facility] Senna/Docusate Sodium 1 tablet 03/24/20 06:00 03/24/20 07:06 Senokot-S, Bonny-Colace PO 1 tablet BID [facility] Administration Tuberculin PPD 5 tu 03/31/20 10:00 Tubersol, Aplisol, Ppd ID 03/31/20 10:01 X1 ONE Problem List (Last Reviewed 03/21/20 @ 11:[address] Ulises Rainey MD) Dysarthria (Acute) Left hemiparesis (Acute) Marijuana abuse (Chronic) Closed right hip fracture (Chronic) DVT (deep venous thrombosis) (Chronic) Tobacco abuse (Chronic) Vital Signs Temp Pulse Resp BP Pulse Ox 97.8 F 80 14 131/70 H 94 03/24/20 06:59 03/24/20 06:59 03/24/20 06:59 03/24/20 06:59 03/24/20 06:59 Oxygen Delivery Method Room Air Weight: 50.1 kg Body Mass Index (BMI) 21.5 Finger Stick Blood Glucose 154 Sodium 139 mmol/L (136-145) 03/24/20 05:10 Potassium 4.0 mmol/L (3.5-5.1) 03/24/20 05:10 Chloride 108 mmol/L (98-107) H 03/24/20 05:10 Carbon Dioxide 25.0 mmol/L (21.0-32.0) 03/24/20 05:10 Anion Gap 6 (5-15) 03/24/20 05:10 BUN 10 mg/dL (7-18) 03/24/20 05:10 Creatinine 0.79 mg/dL (0.55-1.02) 03/24/20 05:10 Est GFR (MDRD) Af Amer 94 mL/min (>60) 03/24/20 05:10 Est GFR (MDRD) Non-Af 78 mL/min (>60) 03/24/20 05:10 BUN/Creatinine Ratio 12.7 RATIO (10-20) 03/24/20 05:10 Glucose 146 mg/dL (74-106) H 03/24/20 05:10 Assessment/Plan: 1) Pain APAP prn, baclofen for neck pain. Continue to monitor prn medication use, daily pain scores. 2) HTN Amlodipine, HCTZ, lisinopril. Continue to monitor BP/HR, renal function, electrolytes. 3) DVT Rivaroxaban. Continue to monitor renal function, s/s bleeding/clot. 4) Hypothyroidism Levothyroxine. Continue to monitor s/s hyper/hypothyroidism. 5) Lipids/Stroke Atorvastatin, clopidogrel. Continue to monitor lipids, s/s stroke. 6) DM2 Insulin glargine, aspart, metformin. Continue to monitor renal function, BGT, s/s hyper/hypoglycemia. 7) Nutrition/Osteoporosis Ca, D, alendronate, Mg, KCL. Continue to monitor electrolytes. 8) Breast Ca Anastrozole. Continue to monitor clinically. Psychotropic Medications: 9) Depression Mirtazapine at HS. Continue to monitor clinically. Unnecessary Medications: None Bowel Regimen: 10) Senna/s, PEG, prn bisacodyl. Continue to monitor prn medication use, for constipation/diarrhea. Date of Note:: 03/24/20 - Provider Comments Provider responsibility: Provider responsible to enter orders to implement recommendations <Mj,Maurice Foy - Last Filed: 03/24/20 16:44> Progress Note - Pharmacy Subjective: [] Objective: Allergies aspirin Allergy (Unknown, Verified 03/21/20 10:36) Nausea albuterol Adverse Reaction (Verified 03/21/20 10:36) I GET VERY SHAKEY/HYPERVENTILATING Penicillins Adverse Reaction (Verified 03/21/20 10:36) Nausea/Vom/Diarrhea Current Medications Generic Name Dose Route Start Last Admin Trade Name Freq PRN Reason Stop Dose Admin Acetaminophen 1,000 mg 03/23/20 21:01 03/24/20 13:28 Tylenol PO 1,000 mg Q6H PRN PRN Administration Pain Score 1-3/10 Alendronate Sodium 70 mg 03/27/20 06:00 Fosamax PO Mo@0600 [facility] Amlodipine Besylate 5 mg 03/24/20 06:00 03/24/20 07:05 Norvasc PO 5 mg DAILY [facility] Administration Anastrozole 1 mg 03/24/20 06:00 03/24/20 07:02 Arimidex PO 1 mg DAILY [facility] Administration Atorvastatin Calcium 80 mg 03/23/20 22:00 03/23/20 20:53 Lipitor PO 80 mg QHS [facility] Administration Baclofen 10 mg 03/24/20 22:00 Lioresal PO 03/31/20 22:01 QHS [facility] Bisacodyl 10 mg 03/23/20 21:01 Dulcolax RECTAL DAILY PRN Constipation Calamine/Phenol 1 applic 03/23/20 22:00 03/24/20 07:03 Calmoseptine Ointment TOPICAL 1 applicatio 0600,2200 [facility] Administration Protocol Calcium Carbonate 500 mg 03/24/20 08:00 03/24/20 09:23 Os-Rian 500 PO 500 mg BIDCM [facility] Administration Cholecalciferol 2,000 unit 03/24/20 06:00 03/24/20 07:07 Vitamin D (25mcg) PO 2,000 unit DAILY [facility] Administration Clopidogrel Bisulfate 75 mg 03/24/20 06:00 03/24/20 07:06 Plavix PO 75 mg DAILY [facility] Administration Hydrochlorothiazide 25 mg 03/24/20 06:00 03/24/20 07:04 Hctz PO 25 mg DAILY [facility] Administration Insulin Glargine 15 units 03/23/20 22:00 03/23/20 23:18 Lantus ([facility]) SC 15 u QHS [facility] Administration Insulin Human Lispro 5 unit 03/24/20 16:45 Humalog Kwikpen ([facility]) SC TIDAC [facility] Levothyroxine Sodium 125 mcg 03/24/20 06:00 03/24/20 07:07 Synthroid PO 125 mcg DAILY@0600 [facility] Administration Lisinopril 10 mg 03/24/20 06:00 03/24/20 07:07 Zestril PO 10 mg BID [facility] Administration Magnesium Oxide 400 mg 03/24/20 08:00 03/24/20 09:23 Mag-Ox 400 PO 400 mg BIDCM [facility] Administration Metformin HCl 500 mg 03/24/20 08:00 03/24/20 09:23 Glucophage PO 500 mg BIDCM [facility] Administration Mirtazapine 7.5 mg 03/24/20 22:00 Remeron PO QHS [facility] Nicotine 21 mg 03/24/20 06:00 03/24/20 07:05 Nicoderm Cq ([facility]) TRANSDERM. 21 mg DAILY [facility] Administration Polyethylene Glycol 17 gm 03/24/20 06:00 03/24/20 07:05 Miralax PO 17 gm DAILY [facility] Administration Potassium Chloride 40 meq 03/24/20 08:00 03/24/20 09:23 K-Dur PO 40 meq DAILYCM [facility] Administration Rivaroxaban 10 mg 03/24/20 17:00 Xarelto PO DAILY@1700 [facility] Senna/Docusate Sodium 1 tablet 03/24/20 06:00 03/24/20 07:06 Senokot-S, Bonny-Colace PO 1 tablet BID [facility] Administration Tuberculin PPD 5 tu 03/31/20 10:00 Tubersol, Aplisol, Ppd ID 03/31/20 10:01 X1 ONE Problem List (Last Reviewed 03/21/20 @ 11:[address] Ulises Rianey MD) Dysarthria (Acute) Left hemiparesis (Acute) Marijuana abuse (Chronic) Closed right hip fracture (Chronic) DVT (deep venous thrombosis) (Chronic) Tobacco abuse (Chronic) Vital Signs Temp Pulse Resp BP Pulse Ox 98.1 F 83 15 151/90 H 98 03/24/20 14:41 03/24/20 14:41 03/24/20 14:41 03/24/20 14:41 03/24/20 14:41 Oxygen Delivery Method Room Air Weight: 50.1 kg Body Mass Index (BMI) 21.5 Finger Stick Blood Glucose 154 Sodium 139 mmol/L (136-145) 03/24/20 05:10 Potassium 4.0 mmol/L (3.5-5.1) 03/24/20 05:10 Chloride 108 mmol/L (98-107) H 03/24/20 05:10 Carbon Dioxide 25.0 mmol/L (21.0-32.0) 03/24/20 05:10 Anion Gap 6 (5-15) 03/24/20 05:10 BUN 10 mg/dL (7-18) 03/24/20 05:10 Creatinine 0.79 mg/dL (0.55-1.02) 03/24/20 05:10 Est GFR (MDRD) Af Amer 94 mL/min (>60) 03/24/20 05:10 Est GFR (MDRD) Non-Af 78 mL/min (>60) 03/24/20 05:10 BUN/Creatinine Ratio 12.7 RATIO (10-20) 03/24/20 05:10 Glucose 146 mg/dL (74-106) H 03/24/20 05:10 Assessment/Plan: Psychotropic Medications: Unnecessary Medications: Bowel Regimen: - Provider Comments Provider responsibility: Provider responsible to enter orders to implement recommendations Provider Comments to Recommendations by Pharmacy: Agree
--- NOTE | 2020-03-24 14:28 | CHAPLAIN ---
Type of Pastoral Visit _x__ Initial Visit ___ Follow-up Visit ___ On-call Visit ___ General Patient Visit ___ Spiritual Assessment ___ Family Conference ___ Bereavement ___ Rapid Response ___ Code Blue ___ Other (describe below) Pastoral Care Referral From _x__ Patient ___ Family ___ Nurse ___ Physician _x__ Leading Firefighter ___ Fabric Designer ___ Other (describe below) Sacrament/Intervention _x__ Active listening ___ Anointing ___ Christian _x__ Bereavement ___ Communion _x__ Tessie exploration ___ _x__ Life review _x__ Prayer ___ Reconciliation ___ Sacrament of Sick _x__ Supportive presence ___ Wedding ___ Other (describe below) Pastoral Comments patient was seen in previous admission; pt referred to this head grower by SW due to new grief issues; pt's son of suicide recently; pt and spouse to have their 25th anniversary next week but will be separate due to current visitation restrictions; pt talks of her tessie and that God will see her through; future support would be recommended
[2020-03-24 14:41] VITALS: BP 151/90; PULSE 83; RESP 15; TEMP 36.7; O2SAT 98
[2020-03-24 16:50] LABS: Bedside Glucose 243 mg/dL (70-110)
[2020-03-24] MEDS: Insulin Lispro 100 UNIT/ML INSULN.PEN SC (17:48)
[2020-03-24] MEDS: Rivaroxaban 10 MG Tablet PO (17:53)
[2020-03-24] MEDS: Mirtazapine 15 MG Tablet 7.5 MG PO (21:49)
[2020-03-24] MEDS: Atorvastatin Calcium 80 MG Tablet PO (21:50)
[2020-03-24] MEDS: Baclofen 10 MG Tablet PO (21:50)
[2020-03-24 23:26] LABS: Bedside Glucose 172 mg/dL (70-110)
[2020-03-25] MEDS: Senna/Docusate Sodium 1 Tablet PO ×2 (05:52→17:40)
[2020-03-25] MEDS: Lisinopril 10 MG Tablet PO ×2 (05:52→17:40)
[2020-03-25] MEDS: Clopidogrel Bisulfate 75 MG Tablet PO (05:52)
[2020-03-25] MEDS: Anastrozole 1 MG Tablet PO (05:52)
[2020-03-25] MEDS: amLODIPine 5 MG Tablet PO (05:52)
[2020-03-25] MEDS: Levothyroxine 125 MCG Tablet PO (05:52)
[2020-03-25] MEDS: hydroCHLOROthiazide 25 MG Tablet PO (05:52)
[2020-03-25] MEDS: Polyethylene Glycol 3350 17 GM PACKET PO (05:53)
[2020-03-25] MEDS: Menthol/Lanolin/Calamine/Znox 113 GM Tube 1 APPLIC TOPICAL ×2 (05:57→20:38)
[2020-03-25 06:02] VITALS: BP 161/94; PULSE 75; RESP 14; TEMP 36.4; O2SAT 95
--- NOTE | 2020-03-25 06:10 | NURSING ---
nicotine patch replaced on rt upper arm
[2020-03-25 06:41] LABS: Bedside Glucose 144 mg/dL (70-110)
[2020-03-25] MEDS: Insulin Lispro 100 UNIT/ML INSULN.PEN SC ×3 (09:36→17:39)
[2020-03-25] MEDS: metFORMIN HCl 500 MG Tablet PO ×2 (09:37→17:39)
[2020-03-25] MEDS: Calcium (Elemental) 500 MG Tablet PO ×2 (09:38→17:40)
[2020-03-25] MEDS: Magnesium Oxide 400 MG Tablet PO ×2 (09:38→17:39)
[2020-03-25 10:00] VITALS: O2SAT 97
[2020-03-25 11:35] LABS: Bedside Glucose 255 mg/dL (70-110)
[2020-03-25 14:56] VITALS: BP 103/67; PULSE 81; RESP 14; TEMP 36.6; O2SAT 96
[2020-03-25 16:41] LABS: Bedside Glucose 159 mg/dL (70-110)
[2020-03-25] MEDS: Rivaroxaban 10 MG Tablet PO (17:40)
[2020-03-25] MEDS: Mirtazapine 15 MG Tablet 7.5 MG PO (20:34)
[2020-03-25] MEDS: Atorvastatin Calcium 80 MG Tablet PO (20:34)
[2020-03-25] MEDS: Baclofen 10 MG Tablet PO (20:35)
[2020-03-25 21:31] LABS: Bedside Glucose 135 mg/dL (70-110)
--- NOTE | 2020-03-26 03:22 | NURSING ---
Nicotine patch on right deltoid
[2020-03-26 06:01] VITALS: BP 120/77; PULSE 72; RESP 16; O2SAT 96
[2020-03-26] MEDS: Levothyroxine 125 MCG Tablet PO (06:03)
[2020-03-26] MEDS: amLODIPine 5 MG Tablet PO (06:03)
[2020-03-26] MEDS: Lisinopril 10 MG Tablet PO ×2 (06:03→17:01)
[2020-03-26] MEDS: Clopidogrel Bisulfate 75 MG Tablet PO (06:03)
[2020-03-26] MEDS: Anastrozole 1 MG Tablet PO (06:04)
[2020-03-26] MEDS: hydroCHLOROthiazide 25 MG Tablet PO (06:05)
[2020-03-26] MEDS: Menthol/Lanolin/Calamine/Znox 113 GM Tube 1 APPLIC TOPICAL ×2 (06:06→21:19)
--- NOTE | 2020-03-26 06:10 | NURSING ---
Old nicotine patch removed from right arm and new patch on left deltoid.
[2020-03-26 06:21] LABS: Bedside Glucose 108 mg/dL (70-110)
[2020-03-26] MEDS: Insulin Lispro 100 UNIT/ML INSULN.PEN SC ×3 (08:51→17:01)
[2020-03-26] MEDS: Magnesium Oxide 400 MG Tablet PO ×2 (08:52→17:02)
[2020-03-26] MEDS: metFORMIN HCl 500 MG Tablet PO ×2 (08:52→17:02)
[2020-03-26] MEDS: Calcium (Elemental) 500 MG Tablet PO ×2 (08:53→17:02)
[2020-03-26 11:15] LABS: Bedside Glucose 216 mg/dL (70-110)
[2020-03-26 14:18] VITALS: BP 128/75; PULSE 84; RESP 16; TEMP 36.8; O2SAT 95
[2020-03-26 16:25] LABS: Bedside Glucose 115 mg/dL (70-110)
[2020-03-26] MEDS: Rivaroxaban 10 MG Tablet PO (17:01)
--- NOTE | 2020-03-26 20:45 | RAD_ITS ---
STUDY: X-RAY - ABDOMEN/PELVIS REASON FOR EXAM: Female, 64 years old. Diarrhea TECHNIQUE: AP supine and upright views of the abdomen and pelvis. COMPARISON: 01/17/2020. FINDINGS: Normal visualized lung bases. There is an unremarkable bowel gas pattern. There is no demonstrated free abdominal air. The visualized liver, spleen and kidneys are grossly normal in size and morphology. Normal soft tissue structures. Normal visualized osseous structures. RAD/Abd Inc Decub and/or Erect IMPRESSION: No definite acute or significant abnormality seen. Electronically Signed: Markie Mathews MD at 22:41 EDT , Service support ,
[2020-03-26] MEDS: Mirtazapine 15 MG Tablet 7.5 MG PO (21:14)
[2020-03-26] MEDS: Baclofen 10 MG Tablet PO (21:14)
[2020-03-26] MEDS: Atorvastatin Calcium 80 MG Tablet PO (21:15)
[2020-03-26 21:20] VITALS: PULSE 80; RESP 16; O2SAT 96
[2020-03-26 21:21] LABS: Bedside Glucose 105 mg/dL (70-110)
--- NOTE | 2020-03-26 23:26 | NURSING ---
2030- Pt c/o loose stools on and off x2 days. Had 6 LG loose BMs in about 2 hours this shift and laxatives were held today. Dr. Barker notified and new orders received for KUB.
[2020-03-27 05:20] VITALS: BP 121/85; PULSE 70; RESP 16; TEMP 36.9; O2SAT 94
[2020-03-27] MEDS: Nystatin Powder 15gm Bottle 1 APPLIC TOPICAL ×2 (05:23→17:42)
[2020-03-27] MEDS: Anastrozole 1 MG Tablet PO (05:24)
[2020-03-27] MEDS: Clopidogrel Bisulfate 75 MG Tablet PO (05:24)
[2020-03-27] MEDS: amLODIPine 5 MG Tablet PO (05:24)
[2020-03-27] MEDS: Lisinopril 10 MG Tablet PO ×2 (05:24→17:43)
[2020-03-27] MEDS: hydroCHLOROthiazide 25 MG Tablet PO (05:24)
[2020-03-27] MEDS: Levothyroxine 125 MCG Tablet PO (05:24)
[2020-03-27] MEDS: Alendronate Sodium 70 MG Tablet PO (05:26)
[2020-03-27] MEDS: Menthol/Lanolin/Calamine/Znox 113 GM Tube 1 APPLIC TOPICAL ×2 (05:31→21:27)
[2020-03-27 06:30] LABS: Bedside Glucose 143 mg/dL (70-110)
--- NOTE | 2020-03-27 06:50 | NURSING ---
Old nicotine patch removed from left deltoid and new nicotine patch placed on right deltoid.
[2020-03-27] MEDS: metFORMIN HCl 500 MG Tablet PO ×2 (08:28→17:40)
[2020-03-27] MEDS: Insulin Lispro 100 UNIT/ML INSULN.PEN SC ×2 (08:29→17:40)
[2020-03-27] MEDS: Magnesium Oxide 400 MG Tablet PO ×2 (08:30→17:41)
[2020-03-27] MEDS: Calcium (Elemental) 500 MG Tablet PO ×2 (08:30→17:41)
[2020-03-27 09:07] VITALS: RESP 18
[2020-03-27 11:31] LABS: Bedside Glucose 86 mg/dL (70-110)
[2020-03-27 14:40] VITALS: BP 100/66; PULSE 89; RESP 16; TEMP 36.7; O2SAT 93
--- NOTE | 2020-03-27 14:47 | NURSING ---
Dr avila aware of KUB results.
[2020-03-27 16:36] LABS: Bedside Glucose 209 mg/dL (70-110)
[2020-03-27] MEDS: Rivaroxaban 10 MG Tablet PO (17:42)
[2020-03-27] MEDS: Mirtazapine 15 MG Tablet 7.5 MG PO (21:23)
[2020-03-27] MEDS: Baclofen 10 MG Tablet PO (21:23)
[2020-03-27] MEDS: Atorvastatin Calcium 80 MG Tablet PO (21:23)
[2020-03-27 21:31] LABS: Bedside Glucose 122 mg/dL (70-110)
--- NOTE | 2020-03-28 06:00 | NURSING ---
Removed old nicotine patch from right deltoid. Placed new Nicotine patch to left deltoid.
[2020-03-28] MEDS: Lisinopril 10 MG Tablet PO ×2 (06:17→18:06)
[2020-03-28] MEDS: Levothyroxine 125 MCG Tablet PO (06:17)
[2020-03-28] MEDS: Clopidogrel Bisulfate 75 MG Tablet PO (06:17)
[2020-03-28] MEDS: Anastrozole 1 MG Tablet PO (06:17)
[2020-03-28] MEDS: hydroCHLOROthiazide 25 MG Tablet PO (06:17)
[2020-03-28] MEDS: amLODIPine 5 MG Tablet PO (06:17)
[2020-03-28] MEDS: Menthol/Lanolin/Calamine/Znox 113 GM Tube 1 APPLIC TOPICAL ×2 (06:24→20:58)
[2020-03-28] MEDS: Nystatin Powder 15gm Bottle 1 APPLIC TOPICAL ×2 (06:24→18:06)
[2020-03-28 06:26] LABS: Bedside Glucose 86 mg/dL (70-110)
[2020-03-28 06:44] VITALS: BP 116/73; PULSE 79; RESP 16; TEMP 36.2; O2SAT 94
[2020-03-28] MEDS: metFORMIN HCl 500 MG Tablet PO ×2 (09:55→17:43)
[2020-03-28] MEDS: Calcium (Elemental) 500 MG Tablet PO ×2 (09:56→17:46)
[2020-03-28] MEDS: Magnesium Oxide 400 MG Tablet PO ×2 (09:56→17:45)
[2020-03-28 11:30] LABS: Bedside Glucose 336 mg/dL (70-110)
[2020-03-28] MEDS: Insulin Lispro 100 UNIT/ML INSULN.PEN SC ×2 (12:29→17:43)
[2020-03-28 15:28] VITALS: BP 100/68; PULSE 83; RESP 14; TEMP 37.1; O2SAT 96
[2020-03-28] MEDS: Acetaminophen 500 MG Tablet 1000 MG PO (16:31)
[2020-03-28 16:36] LABS: Bedside Glucose 214 mg/dL (70-110)
[2020-03-28] MEDS: Rivaroxaban 10 MG Tablet PO (17:46)
[2020-03-28] MEDS: Baclofen 10 MG Tablet PO (20:57)
[2020-03-28] MEDS: Atorvastatin Calcium 80 MG Tablet PO (20:57)
[2020-03-28] MEDS: Mirtazapine 15 MG Tablet 7.5 MG PO (20:57)
[2020-03-28 21:16] LABS: Bedside Glucose 132 mg/dL (70-110)
[2020-03-29 01:16] LABS: Bedside Glucose 158 mg/dL (70-110)
[2020-03-29] MEDS: Clopidogrel Bisulfate 75 MG Tablet PO (05:15)
[2020-03-29] MEDS: Anastrozole 1 MG Tablet PO (05:15)
[2020-03-29] MEDS: Levothyroxine 125 MCG Tablet PO (05:15)
[2020-03-29] MEDS: Menthol/Lanolin/Calamine/Znox 113 GM Tube 1 APPLIC TOPICAL ×2 (05:25→21:16)
[2020-03-29] MEDS: Nystatin Powder 15gm Bottle 1 APPLIC TOPICAL ×2 (05:25→17:01)
[2020-03-29 05:26] VITALS: BP 102/65; PULSE 77; RESP 16; TEMP 36.9; O2SAT 97
[2020-03-29 06:06] LABS: Bedside Glucose 121 mg/dL (70-110)
[2020-03-29 06:23] VITALS: BP 99/70; PULSE 80
[2020-03-29] MEDS: Insulin Lispro 100 UNIT/ML INSULN.PEN SC ×3 (08:05→16:53)
[2020-03-29] MEDS: Magnesium Oxide 400 MG Tablet PO ×2 (08:09→16:55)
[2020-03-29] MEDS: metFORMIN HCl 500 MG Tablet PO ×2 (08:09→16:55)
[2020-03-29] MEDS: hydroCHLOROthiazide 25 MG Tablet PO (08:10)
[2020-03-29] MEDS: Lisinopril 10 MG Tablet PO ×2 (08:10→16:59)
[2020-03-29] MEDS: amLODIPine 5 MG Tablet PO (08:10)
[2020-03-29] MEDS: Calcium (Elemental) 500 MG Tablet PO ×2 (08:10→16:55)
[2020-03-29 10:00] VITALS: PULSE 84; RESP 16; O2SAT 95
[2020-03-29 11:06] LABS: Bedside Glucose 189 mg/dL (70-110)
[2020-03-29 14:09] VITALS: BP 98/59; PULSE 64; RESP 16; TEMP 37.3; O2SAT 90
--- NOTE | 2020-03-29 15:14 | CASEMGMT ---
Social Work IDT met with patient and via conference call for care plan meeting. Discussed patient's progress in therapy. Pt is SBA for bed mobility, uses bed rail, CGA for transfers with FWW, CGA to ambulate 40 ft with FWW. Pt is min assist for grooming, mod assist for bathing, SBA for UE dressing, min assist for LE dressing, mod assist for toileting for clothing and hygiene management, min assist for toilet transfers. Pt is on [facility]. soft, thin liquid diet. ST working on swallowing exercises, continuing with cognitive testing and voice strategies. Pt is on a carb controlled diet, receiving ensure, and appetite tis improving with diet upgrade. Pit os out of room isolation 04/06, and responding well to Remeron. Explained [employer] insurance with [employer] 03/27 and continued stay is not guaranteed. and son can continue to assist her at [place]. Will continue to follow. Insurance approved with [employer] 04/01. Denisha Cadet, CARIE REVELESW
--- NOTE | 2020-03-29 16:01 | CHAPLAIN ---
Type of Pastoral Visit ___ Initial Visit _x__ Follow-up Visit ___ On-call Visit ___ General Patient Visit ___ Spiritual Assessment ___ Family Conference ___ Bereavement ___ Rapid Response ___ Code Blue ___ Other (describe below) Pastoral Care Referral From _x__ Patient ___ Family ___ Nurse ___ Physician ___ Pigment Pumper ___ Business Leader ___ Other (describe below) Sacrament/Intervention _x__ Active listening ___ Anointing ___ Oriental Orthodox ___ Bereavement ___ Communion ___ Tessie exploration ___ ___ Life review _x__ Prayer ___ Reconciliation ___ Sacrament of Sick _x__ Supportive presence ___ Wedding ___ Other (describe below) Pastoral Comments today is patient's 25th anniversary and she is not able to see her
[2020-03-29 16:26] LABS: Bedside Glucose 120 mg/dL (70-110)
[2020-03-29] MEDS: Rivaroxaban 10 MG Tablet PO (16:56)
--- NOTE | 2020-03-29 19:45 | NURSING ---
Called and left message with Patient's son for Patient's , Cullen to update him on patient. States that he will have his father call him back when he gets home after midnight from work.
[2020-03-29] MEDS: Baclofen 10 MG Tablet PO (21:10)
[2020-03-29] MEDS: Mirtazapine 15 MG Tablet 7.5 MG PO (21:10)
[2020-03-29] MEDS: Atorvastatin Calcium 80 MG Tablet PO (21:11)
--- NOTE | 2020-03-29 21:19 | NURSING ---
nicotine patch on right deltoid
[2020-03-29 21:31] LABS: Bedside Glucose 137 mg/dL (70-110)
[2020-03-30 04:00] VITALS: BP 111/67; PULSE 73; RESP 16; TEMP 36.8; O2SAT 96
[2020-03-30 06:35] LABS: Bedside Glucose 80 mg/dL (70-110)
[2020-03-30] MEDS: hydroCHLOROthiazide 25 MG Tablet PO (06:47)
[2020-03-30] MEDS: Lisinopril 10 MG Tablet PO ×2 (06:47→17:23)
[2020-03-30] MEDS: amLODIPine 5 MG Tablet PO (06:47)
[2020-03-30] MEDS: Clopidogrel Bisulfate 75 MG Tablet PO (06:47)
[2020-03-30] MEDS: Levothyroxine 125 MCG Tablet PO (06:47)
[2020-03-30] MEDS: Anastrozole 1 MG Tablet PO (06:48)
[2020-03-30] MEDS: Nystatin Powder 15gm Bottle 1 APPLIC TOPICAL ×2 (06:54→17:23)
[2020-03-30] MEDS: Menthol/Lanolin/Calamine/Znox 113 GM Tube 1 APPLIC TOPICAL ×2 (06:54→20:46)
--- NOTE | 2020-03-30 07:30 | NURSING ---
Pt nicotine patch removed from right deltoid and new patch on left deltoid.
[2020-03-30] MEDS: Insulin Lispro 100 UNIT/ML INSULN.PEN SC ×3 (08:11→16:49)
[2020-03-30] MEDS: metFORMIN HCl 500 MG Tablet PO ×2 (08:12→16:50)
[2020-03-30] MEDS: Calcium (Elemental) 500 MG Tablet PO ×2 (08:12→16:50)
[2020-03-30] MEDS: Magnesium Oxide 400 MG Tablet PO ×2 (08:12→16:51)
[2020-03-30 11:15] LABS: Bedside Glucose 186 mg/dL (70-110)
[2020-03-30 14:45] VITALS: BP 99/52; PULSE 87; RESP 16; TEMP 36.7; O2SAT 95
--- NOTE | 2020-03-30 16:35 | CASEMGMT ---
Social Work Brief interview for mental status (BIMS) and resident mood assessment (PHQ-9) completed on this day. BIMS score . PHQ-9 score 06/01. Sanjiv DARNELL, MARIA DOLORES
[2020-03-30 16:46] LABS: Bedside Glucose 141 mg/dL (70-110)
[2020-03-30] MEDS: Rivaroxaban 10 MG Tablet PO (16:50)
[2020-03-30 17:24] VITALS: BP 117/70; PULSE 81
[2020-03-30 20:00] VITALS: PULSE 85; RESP 18; O2SAT 98
--- NOTE | 2020-03-30 20:09 | NURSING ---
STATION MECHANIC APPRENTICE notified this nurse that the patient was on the floor. This nurse went in to assess the patient and she was sitting on her coccyx and knees bent. No injuries noted during the assessment call light was wrapped around the side rail within reach for the patient to reach. States she was getting up to get call light because she didn't have it. States when she was assisted back to bed from chair that she didn't have call light. STATION MECHANIC APPRENTICE was in the room and notice the call light wrapped around the side rail within patient reach. Vital signs Bp-111/71, RR 18, HR 85, Spo2-98 RA, & Temp 98.2 oral. Lungs clear A&P. Denies any pain. Pt states she used the side table to walk over to get call light. This call and left a voicemail for her to call back. Rn made aware.
[2020-03-30] MEDS: Mirtazapine 15 MG Tablet 7.5 MG PO (20:41)
[2020-03-30] MEDS: Baclofen 10 MG Tablet PO (20:42)
[2020-03-30] MEDS: Atorvastatin Calcium 80 MG Tablet PO (20:42)
[2020-03-30 21:51] LABS: Bedside Glucose 170 mg/dL (70-110)
--- NOTE | 2020-03-30 23:34 | NURSING ---
21:40 Pt was having problems with cellphone not been able to connect to the wifi this nurse was able to get cellphone connected to wifi. Pt called son on Facetime while nurse was in the room and she let him know that she fell on her coccyx. has not called back at this time.
--- NOTE | 2020-03-31 02:08 | NURSING ---
Pt called at this time communicated that pt was found on the floor and no injuries noted.
[2020-03-31 06:02] LABS: Absolute Lymphocyte Count 3.33 X10^3/uL (0.83-4.51); Absolute Neutrophil Count 8.1 X10^3/uL (2.0-7.7); Basophil# 0.11 X10^3/uL; Basophil% 0.8 % (0-1); Eosinophil# 0.54 X10^3/uL; Eosinophils% 4.2 % (0-5); Hematocrit 39.5 % (37-47); Lymphocyte # 3.33 X10^3/ul (4.0); Lymphocyte % 25.7 % (19-41); Mean Corp Hgb Conc 30.4 g/dL (32-36); Mean Corpuscular Hgb 25.9 pg (27.0-32.0); Mean Corpuscular Volume 85.3 fL (81-99); Mean Platelet Vol. 10.9 fl (6.2-12.0); Monocyte# 0.78 X10^3/uL; NRBC Flagged by Analyzer 0 % (0-5); Neutrophil # 8.13 X10^3/uL (2.7-7.7); Neutrophil % 62.8 % (47-70); Platelet Count 415 K/mm3 (150-450); RBC Distribution Width CV 14.2 % (11.6-14.6); RBC Distribution Width SD 43.5 fl (35.1-43.9); Red Blood Count 4.63 M/mm3 (4.2-5.4)
[2020-03-31 06:20] VITALS: BP 121/72; PULSE 72; RESP 16; TEMP 36.9; O2SAT 95
[2020-03-31 06:22] LABS: Anion Gap 4 (5-15); BUN 31 mg/dL (7-18); BUN/Creat Ratio 32.6 RATIO (10-20); Calcium,Total 8.7 mg/dL (8.5-10.1); Chloride 108 mmol/L (98-107); Creatinine, Serum 0.95 mg/dL (0.55-1.02); EST Glomerular Filtration Rate 63 mL/min (>60); Est Glom Filt Rate - Afr Amer 76 mL/min (>60); Estimated Creatinine Clearance 42.41 ml/min; Glucose 102 mg/dL (74-106); Potassium 3.9 mmol/L (3.5-5.1); Sodium Level 140 mmol/L (136-145)
[2020-03-31] MEDS: amLODIPine 5 MG Tablet PO (06:27)
[2020-03-31] MEDS: Senna/Docusate Sodium 1 Tablet PO (06:27)
[2020-03-31] MEDS: Levothyroxine 125 MCG Tablet PO (06:27)
[2020-03-31] MEDS: Clopidogrel Bisulfate 75 MG Tablet PO (06:27)
[2020-03-31] MEDS: Lisinopril 10 MG Tablet PO ×2 (06:27→18:02)
[2020-03-31] MEDS: hydroCHLOROthiazide 25 MG Tablet PO (06:27)
[2020-03-31] MEDS: Anastrozole 1 MG Tablet PO (06:28)
[2020-03-31 06:31] LABS: Bedside Glucose 105 mg/dL (70-110)
[2020-03-31] MEDS: Menthol/Lanolin/Calamine/Znox 113 GM Tube 1 APPLIC TOPICAL ×2 (06:34→21:17)
[2020-03-31] MEDS: Nystatin Powder 15gm Bottle 1 APPLIC TOPICAL ×2 (06:35→18:00)
--- NOTE | 2020-03-31 07:14 | NURSING ---
old nicotine patch removed from left deltoid, new patch on right deltoid.
[2020-03-31] MEDS: metFORMIN HCl 500 MG Tablet PO ×2 (08:28→18:01)
[2020-03-31] MEDS: Calcium (Elemental) 500 MG Tablet PO ×2 (08:28→18:00)
[2020-03-31] MEDS: Magnesium Oxide 400 MG Tablet PO ×2 (08:28→18:01)
[2020-03-31] MEDS: Insulin Lispro 100 UNIT/ML INSULN.PEN SC ×3 (08:28→17:59)
[2020-03-31] MEDS: Tuberculin,Purif.prot.deriv. 50 TU/ML Vial 5 ML ID (10:24)
[2020-03-31 11:35] LABS: Bedside Glucose 124 mg/dL (70-110)
[2020-03-31 16:00] VITALS: BP 99/66; PULSE 90; RESP 16; TEMP 37.3; O2SAT 94
--- NOTE | 2020-03-31 16:05 | PCM.CONS.GEN ---
Reason for Consult Date of Consultation: 03/31/20 Reason for Consultation: Toenails History of Present Illness: The patient is a 64 year old F who has long thickened toenails which need to be reduced, she has no other pedal complaints. Patient w/ hx of stroke. Past Medical History Past Medical History (Chronic Problems): Chronic Problems (Last Reviewed 03/21/20 @ 11:[address] Ulises Rainey MD) Fall (Chronic) Sacral fracture (Chronic) Vertigo (Chronic) Osteoarthritis (Chronic) Hypokalemia (Chronic) Marijuana smoker, continuous (Chronic) Marijuana abuse (Chronic) Closed right hip fracture (Chronic) DVT (deep venous thrombosis) (Chronic) Tobacco abuse (Chronic) Type 2 diabetes mellitus (Chronic) Hypothyroidism (Chronic) Vision problems (Chronic) Thyroid disease (Chronic) High blood pressure (Chronic) Hearing problem (Chronic) Diabetes (Chronic) Carpal tunnel syndrome (Chronic) Breast cancer (Chronic) Asthma (Chronic) Arthritis (Chronic) Medical History: Medical History (Last Reviewed 03/21/20 @ 11:[address] Ulises Rainey MD) Vision problems (Chronic) H54.7 Thyroid disease (Chronic) E07.9 High blood pressure (Chronic) I10 Hearing problem (Chronic) H91.90 Diabetes (Chronic) E11.9 Carpal tunnel syndrome (Chronic) G56.00 Breast cancer (Chronic) C50.919 Asthma (Chronic) J45.909 Arthritis (Chronic) M19.90 Allergies aspirin Allergy (Unknown, Verified 03/21/20 10:36) Nausea albuterol Adverse Reaction (Verified 03/21/20 10:36) I GET VERY SHAKEY/HYPERVENTILATING Penicillins Adverse Reaction (Verified 03/21/20 10:36) Nausea/Vom/Diarrhea Home Medications: Ambulatory Orders Medication Instructions Recorded Alendronate Sodium [Fosamax] 70 mg PO QWEEK 03/21/20 Amlodipine [Norvasc] 5 mg PO DAILY 03/21/20 Anastrozole [Arimidex] 1 mg PO DAILY 03/21/20 Calcium Carbonate [Calcium] 600 mg PO BID 03/21/20 Hydrochlorothiazide [Hctz] 25 mg PO DAILY 03/21/20 Insulin Glargine [Lantus SoloStar 15 units SUBCUT QHS 03/21/20 Pen] Levothyroxine [Synthroid] 125 mcg PO DAILY@0600 06/16/20 Potassium Chloride [K-Dur] 40 meq PO DAILYCM 03/21/20 Rivaroxaban [Xarelto] 10 mg PO DAILY@1700 03/21/20 Acetaminophen [Tylenol Tablet] 650 mg PO Q6H PRN PRN tab 03/23/20 Atorvastatin Calcium [Lipitor] 80 mg PO QHS 03/23/20 Cholecalciferol (VIT D3) [Vitamin 2,000 unit PO DAILY 03/23/20 D] Clopidogrel Bisulfate [Plavix] 75 mg PO DAILY 03/23/20 Lisinopril [Zestril] 10 mg PO BID 03/23/20 Magnesium Oxide [Mag-Ox 400] 400 mg PO BIDCM 03/23/20 Nicotine [Nicoderm Cq] 21 mg TRANSDERM. DAILY 03/23/20 metFORMIN HCl [Glucophage] 500 mg PO BIDCM 03/23/20 Surgical History: - - ORIF right hip, intramedullary nail, locked 01/11/2020. Psychiatric History: No pertinent psych hx SAND MIXER History: No pertinent SAND MIXER history Lives: Spouse/ Significant Other Smoking Status: Heavy Smoker (>10/day) Tobacco Use: Cigarettes Alcohol: None Drugs: Marijuana - 3x/day. - *Family History Maternal Family History: Family History (Last Reviewed 03/21/20 @ 11:[address] Ulises Rainey MD) Father Cancer Brother Heart disease History Items: No pertinent history Paternal Family History: Family History (Last Reviewed 03/21/20 @ 11:[address] Ulises Rainey MD) Father Cancer Brother Heart disease History Items: No pertinent history Patient Problems: Active and Suspected Problems (Last Reviewed 03/21/20 @ 11:[address] Ulises Rainey MD) Dysarthria (Acute) Left hemiparesis (Acute) - Physical Exam Vitals/I&O's: Vital Signs Temp Pulse Resp BP Pulse Ox 98.5 F 72 16 121/72 H 95 03/31/20 06:20 03/31/20 06:20 03/31/20 06:20 03/31/20 06:20 03/31/20 06:20 Oxygen Delivery Method Room Air Weight: 50.434 kg Body Mass Index (BMI) 21.5 Finger Stick Blood Glucose 154 Intake and Output for Last 24 Hours 03/29/20 03/30/20 03/31/20 23:59 23:59 23:59 Intake Total 840 / 840 920 / 920 480 / 480 Balance 840 / 840 920 / 920 480 / 480 General: Alert, Oriented x3, Cooperative, No apparent distress Extremities: Capillary Refill Less than 3 Seconds, No Calf Tenderness, - - Toenails 1-5 elongated, thickened, dystrophic, yellow, incurvated w/ subungual debris, painful bilateral. No open lesions, no cellulitis, no maloder, no crepitus bilateral. No m/s POP or pain on ROM to the foot/ankle bilateral. No evidence of ischemia to the foot/ankle bilateral. Psych/Mental Status: Appropriate Microbiology Past 72 Hours 03/29/20 14:00 Stool Enteric Bacteriology - Final 03/29/20 14:00 Stool C. difficile DNA Amplification - Final Laboratory Results 03/30/20 16:13: POC Glucose 141 H 03/30/20 21:38: POC Glucose 170 H 03/31/20 05:06: WBC 13.0 H, RBC 4.63, Hgb 12.0, Hct 39.5, MCV 85.3, MCH 25.9 L, MCHC 30.4 L, RDW Std Deviation 43.5, RDW Coeff of Chad 14.2, Plt Count 415, MPV 10.9, Immature Gran % (Auto) 0.500, Neut % (Auto) 62.8, Lymph % (Auto) 25.7, Harmon % (Auto) 6.0, Eos % (Auto) 4.2, Baso % (Auto) 0.8, Absolute Neuts (auto) 8.1 H, Absolute Lymphs (auto) 3.33, Nucleated RBC % 0 03/31/20 05:06: Sodium 140, Potassium 3.9, Chloride 108 H, Carbon Dioxide 28.0, Anion Gap 4 L, BUN 31 H, Creatinine 0.95, Estim Creat Clear Calc 42.41, Est GFR (MDRD) Af Amer 76, Est GFR (MDRD) Non-Af 63, BUN/Creatinine Ratio 32.6 H, Glucose 102, Calcium 8.7 03/31/20 06:11: POC Glucose 105 03/31/20 11:15: POC Glucose 124 H Current Medications Acetaminophen (Tylenol) 1,000 mg PO Q6H PRN PRN PRN Reason: Pain Score 1-3/10 Last Admin: 03/28/20 16:31 Dose: 1,000 mg Documented by: Alendronate Sodium (Fosamax) 70 mg PO Mo@0600 [facility] Last Admin: 03/27/20 05:26 Dose: 70 mg Documented by: Amlodipine Besylate (Norvasc) 5 mg PO DAILY [facility] Last Admin: 03/31/20 06:27 Dose: 5 mg Documented by: Anastrozole (Arimidex) 1 mg PO DAILY [facility] Last Admin: 03/31/20 06:28 Dose: 1 mg Documented by: Atorvastatin Calcium (Lipitor) 80 mg PO QHS [facility] Last Admin: 03/30/20 20:42 Dose: 80 mg Documented by: Baclofen (Lioresal) 10 mg PO QHS [facility] Stop: 03/31/20 22:01 Last Admin: 03/30/20 20:42 Dose: 10 mg Documented by: Bisacodyl (Dulcolax) 10 mg RECTAL DAILY PRN PRN Reason: Constipation Calamine/Phenol (Calmoseptine Ointment) 1 applic TOPICAL 0600,2200 [facility]; Protocol Last Admin: 03/31/20 06:34 Dose: 1 applicatio Documented by: Calcium Carbonate (Os-Rian 500) 500 mg PO BIDCM [facility] Last Admin: 03/31/20 08:28 Dose: 500 mg Documented by: Cholecalciferol (Vitamin D (25mcg)) 2,000 unit PO DAILY [facility] Last Admin: 03/31/20 06:27 Dose: 2,000 unit Documented by: Clopidogrel Bisulfate (Plavix) 75 mg PO DAILY [facility] Last Admin: 03/31/20 06:27 Dose: 75 mg Documented by: Hydrochlorothiazide (Hctz) 25 mg PO DAILY [facility] Last Admin: 03/31/20 06:27 Dose: 25 mg Documented by: Insulin Glargine (Lantus (Bkc)) 15 units SC QHS [facility] Last Admin: 03/30/20 23:01 Dose: 15 u Documented by: Insulin Human Lispro (Humalog Kwikpen (Bkc)) 5 unit SC TIDAC [facility] Last Admin: 03/31/20 11:56 Dose: 5 u Documented by: Levothyroxine Sodium (Synthroid) 125 mcg PO DAILY@0600 [facility] Last Admin: 03/31/20 06:27 Dose: 125 mcg Documented by: Lisinopril (Zestril) 10 mg PO BID [facility] Last Admin: 03/31/20 06:27 Dose: 10 mg Documented by: [facility] ([facility]Ox 400) [facility] Last Admin: 03/31/20 08:28 Dose: 400 mg Documented by: Metformin HCl (Glucophage) [facility] Last Admin: 03/31/20 08:28 Dose: 500 mg Documented by: Mirtazapine (Remeron) 7.5 mg PO QHS [facility] Last Admin: 03/30/20 20:41 Dose: 7.5 mg Documented by: Nicotine (Nicoderm Cq (Pbkc)) 21 mg TRANSDERM. DAILY [facility] Last Admin: 03/31/20 06:24 Dose: 21 mg Documented by: Nystatin (Mycostatin Powder) 1 applic TOPICAL BID [facility]; Protocol Last Admin: 03/31/20 06:35 Dose: 1 applicatio Documented by: Polyethylene Glycol (Miralax) 17 gm PO DAILY [facility] Last Admin: 03/31/20 06:27 Dose: Not Given Documented by: Potassium Chloride (K-Dur) [facility]q [facility] Last Admin: 03/31/20 08:28 Dose: 40 meq Documented by: Rivaroxaban (Xarelto) 10 mg PO DAILY@1700 [facility] Last Admin: 03/30/20 16:50 Dose: 10 mg Documented by: Senna/Docusate Sodium (Senokot-S, Bonny-Colace) 1 tablet PO BID [facility] Last Admin: 03/31/20 06:27 Dose: 1 tablet Documented by: Assessment/Plan All Active Problems (Last Reviewed 03/21/20 @ 11:[address] Ulises Rainey MD) Debility (Acute) Stroke (Acute) Acute infarct right urban radiata (Acute) Dysarthria (Acute) Left hemiparesis (Acute) Intertrochanteric fracture of right hip (Acute) Onychomycosis/Dystrophic 1-5 bilateral Pain toe, right and left Debrided toenails 1-5 bilateral using a nail nipper, this was done w/out incident. Reviewed foot care with patient. Patient can follow up at [facility] for further foot care as needed. Thank you for consult.
[2020-03-31 17:01] LABS: Bedside Glucose 143 mg/dL (70-110)
[2020-03-31] MEDS: Rivaroxaban 10 MG Tablet PO (18:01)
[2020-03-31] MEDS: Baclofen 10 MG Tablet PO (21:19)
[2020-03-31] MEDS: Mirtazapine 15 MG Tablet 7.5 MG PO (21:20)
[2020-03-31] MEDS: Atorvastatin Calcium 80 MG Tablet PO (21:20)
[2020-03-31 21:25] LABS: Bedside Glucose 145 mg/dL (70-110)
[2020-04-01 04:00] VITALS: BP 116/74; PULSE 75; RESP 14; TEMP 36.8; O2SAT 90
[2020-04-01 06:31] LABS: Bedside Glucose 120 mg/dL (70-110)
[2020-04-01] MEDS: hydroCHLOROthiazide 25 MG Tablet PO (06:58)
[2020-04-01] MEDS: amLODIPine 5 MG Tablet PO (06:58)
[2020-04-01] MEDS: Levothyroxine 125 MCG Tablet PO (06:59)
[2020-04-01] MEDS: Senna/Docusate Sodium 1 Tablet PO (06:59)
[2020-04-01] MEDS: Lisinopril 10 MG Tablet PO ×2 (06:59→18:06)
[2020-04-01] MEDS: Clopidogrel Bisulfate 75 MG Tablet PO (06:59)
[2020-04-01] MEDS: Anastrozole 1 MG Tablet PO (07:01)
[2020-04-01] MEDS: Menthol/Lanolin/Calamine/Znox 113 GM Tube 1 APPLIC TOPICAL ×2 (07:06→21:02)
[2020-04-01] MEDS: Nystatin Powder 15gm Bottle 1 APPLIC TOPICAL ×2 (07:07→18:06)
[2020-04-01] MEDS: metFORMIN HCl 500 MG Tablet PO ×2 (08:45→18:05)
[2020-04-01] MEDS: Insulin Lispro 100 UNIT/ML INSULN.PEN SC ×3 (08:45→18:06)
[2020-04-01] MEDS: Magnesium Oxide 400 MG Tablet PO ×2 (08:46→18:05)
[2020-04-01] MEDS: Calcium (Elemental) 500 MG Tablet PO ×2 (08:47→18:06)
[2020-04-01 11:40] LABS: Bedside Glucose 196 mg/dL (70-110)
[2020-04-01 14:28] VITALS: BP 111/70; PULSE 86; RESP 16; TEMP 37.4; O2SAT 93
[2020-04-01 17:06] LABS: Bedside Glucose 121 mg/dL (70-110)
[2020-04-01] MEDS: Rivaroxaban 10 MG Tablet PO (18:05)
[2020-04-01] MEDS: Mirtazapine 15 MG Tablet 7.5 MG PO (21:00)
[2020-04-01] MEDS: Atorvastatin Calcium 80 MG Tablet PO (21:00)
[2020-04-01 21:45] LABS: Bedside Glucose 179 mg/dL (70-110)
[2020-04-02 04:00] VITALS: BP 122/67; PULSE 71; RESP 14; TEMP 36.8; O2SAT 93
[2020-04-02 06:26] LABS: Bedside Glucose 133 mg/dL (70-110)
[2020-04-02] MEDS: amLODIPine 5 MG Tablet PO (06:56)
[2020-04-02] MEDS: Anastrozole 1 MG Tablet PO (06:56)
[2020-04-02] MEDS: Levothyroxine 125 MCG Tablet PO (06:56)
[2020-04-02] MEDS: hydroCHLOROthiazide 25 MG Tablet PO (06:56)
[2020-04-02] MEDS: Clopidogrel Bisulfate 75 MG Tablet PO (06:57)
[2020-04-02] MEDS: Lisinopril 10 MG Tablet PO ×2 (06:57→17:11)
[2020-04-02] MEDS: Nystatin Powder 15gm Bottle 1 APPLIC TOPICAL ×2 (07:05→17:12)
[2020-04-02] MEDS: Menthol/Lanolin/Calamine/Znox 113 GM Tube 1 APPLIC TOPICAL ×2 (07:06→21:33)
--- NOTE | 2020-04-02 07:26 | NURSING ---
NICOTINE PATCH REMOVED FROM LT DELT AND NEW APPLIED TO RT.
[2020-04-02] MEDS: Magnesium Oxide 400 MG Tablet PO ×2 (08:29→17:12)
[2020-04-02] MEDS: metFORMIN HCl 500 MG Tablet PO ×2 (08:29→17:12)
[2020-04-02] MEDS: Insulin Lispro 100 UNIT/ML INSULN.PEN SC ×3 (08:29→17:12)
[2020-04-02] MEDS: Calcium (Elemental) 500 MG Tablet PO ×2 (08:29→17:12)
[2020-04-02 11:36] LABS: Bedside Glucose 197 mg/dL (70-110)
[2020-04-02 14:51] VITALS: BP 114/65; PULSE 88; RESP 16; TEMP 36.8; O2SAT 95
[2020-04-02 16:41] LABS: Bedside Glucose 128 mg/dL (70-110)
[2020-04-02] MEDS: Rivaroxaban 10 MG Tablet PO (17:11)
[2020-04-02] MEDS: Mirtazapine 15 MG Tablet 7.5 MG PO (21:27)
[2020-04-02] MEDS: Atorvastatin Calcium 80 MG Tablet PO (21:27)
[2020-04-02 21:30] LABS: Bedside Glucose 109 mg/dL (70-110)
[2020-04-03 04:00] VITALS: BP 126/75; PULSE 75; RESP 14; TEMP 36.8; O2SAT 92
[2020-04-03] MEDS: Levothyroxine 125 MCG Tablet PO (06:05)
[2020-04-03] MEDS: Anastrozole 1 MG Tablet PO (06:05)
[2020-04-03] MEDS: Lisinopril 10 MG Tablet PO ×2 (06:05→17:54)
[2020-04-03] MEDS: Senna/Docusate Sodium 1 Tablet PO ×2 (06:05→17:53)
[2020-04-03] MEDS: hydroCHLOROthiazide 25 MG Tablet PO (06:05)
[2020-04-03] MEDS: amLODIPine 5 MG Tablet PO (06:05)
[2020-04-03] MEDS: Clopidogrel Bisulfate 75 MG Tablet PO (06:05)
[2020-04-03] MEDS: Nystatin Powder 15gm Bottle 1 APPLIC TOPICAL ×2 (06:05→18:00)
[2020-04-03] MEDS: Menthol/Lanolin/Calamine/Znox 113 GM Tube 1 APPLIC TOPICAL ×2 (06:07→21:26)
[2020-04-03] MEDS: Alendronate Sodium 70 MG Tablet PO (06:07)
[2020-04-03 06:11] LABS: Bedside Glucose 144 mg/dL (70-110)
[2020-04-03] MEDS: Magnesium Oxide 400 MG Tablet PO ×2 (09:04→17:52)
[2020-04-03] MEDS: Calcium (Elemental) 500 MG Tablet PO ×2 (09:04→17:53)
[2020-04-03] MEDS: metFORMIN HCl 500 MG Tablet PO ×2 (09:04→17:52)
[2020-04-03] MEDS: Insulin Lispro 100 UNIT/ML INSULN.PEN SC ×3 (09:05→17:51)
[2020-04-03 11:10] LABS: Bedside Glucose 269 mg/dL (70-110)
[2020-04-03 14:36] VITALS: BP 102/68; PULSE 85; RESP 17; TEMP 36.8; O2SAT 92
[2020-04-03 16:56] LABS: Bedside Glucose 196 mg/dL (70-110)
[2020-04-03] MEDS: Rivaroxaban 10 MG Tablet PO (17:53)
[2020-04-03] MEDS: Mirtazapine 15 MG Tablet 7.5 MG PO (21:15)
[2020-04-03 21:16] LABS: Bedside Glucose 170 mg/dL (70-110)
[2020-04-03] MEDS: Atorvastatin Calcium 80 MG Tablet PO (21:16)
[2020-04-03 21:30] VITALS: PULSE 72; RESP 16; O2SAT 95
[2020-04-04 05:00] VITALS: BP 138/83; PULSE 78; RESP 16; TEMP 36.8; O2SAT 98
[2020-04-04] MEDS: Clopidogrel Bisulfate 75 MG Tablet PO (06:21)
[2020-04-04] MEDS: Senna/Docusate Sodium 1 Tablet PO (06:21)
[2020-04-04] MEDS: Anastrozole 1 MG Tablet PO (06:21)
[2020-04-04] MEDS: Levothyroxine 125 MCG Tablet PO (06:21)
[2020-04-04] MEDS: Lisinopril 10 MG Tablet PO (06:21)
[2020-04-04] MEDS: hydroCHLOROthiazide 25 MG Tablet PO (06:21)
[2020-04-04] MEDS: amLODIPine 5 MG Tablet PO (06:21)
[2020-04-04] MEDS: Menthol/Lanolin/Calamine/Znox 113 GM Tube 1 APPLIC TOPICAL ×2 (06:23→23:12)
[2020-04-04 06:26] LABS: Bedside Glucose 84 mg/dL (70-110)
[2020-04-04] MEDS: Nystatin Powder 15gm Bottle 1 APPLIC TOPICAL ×2 (06:31→16:52)
--- NOTE | 2020-04-04 07:10 | NURSING ---
Nicotine patch removed from left deltoid and new patch applied to right deltoid.
[2020-04-04] MEDS: Calcium (Elemental) 500 MG Tablet PO ×2 (08:37→16:52)
[2020-04-04] MEDS: metFORMIN HCl 500 MG Tablet PO ×2 (08:37→16:52)
[2020-04-04] MEDS: Magnesium Oxide 400 MG Tablet PO ×2 (08:37→16:52)
[2020-04-04 11:06] LABS: Bedside Glucose 190 mg/dL (70-110)
[2020-04-04] MEDS: Insulin Lispro 100 UNIT/ML INSULN.PEN SC ×2 (11:56→18:09)
--- NOTE | 2020-04-04 13:00 | MDS.RN ---
Information for the mds was obtained from review of the clinical record, interview of resident, staff, and direct observation of resident's care.
[2020-04-04 13:29] VITALS: BP 95/72; PULSE 88; RESP 18; TEMP 36.8; O2SAT 97
[2020-04-04] MEDS: Rivaroxaban 10 MG Tablet PO (16:52)
[2020-04-04 16:56] LABS: Bedside Glucose 159 mg/dL (70-110)
--- NOTE | 2020-04-04 17:00 | CASEMGMT ---
Social Work Pt requesting to return home. SW spoke with team who agreeable to d/c and recommending home health PT/OT/ST. SW met with pt who would like to d/c on Friday and is agreeable to [facility] with no preference of company. Attempted to call pt while in room with pt and left message requesting return call to discuss d/c. SW will await return call from pt and make final d/c arrangements. SERGEY Pantoja
[2020-04-04 21:30] LABS: Bedside Glucose 118 mg/dL (70-110)
[2020-04-04] MEDS: Mirtazapine 15 MG Tablet 7.5 MG PO (23:07)
[2020-04-04] MEDS: Atorvastatin Calcium 80 MG Tablet PO (23:08)
[2020-04-05 04:00] VITALS: BP 119/74; PULSE 78; RESP 16; TEMP 36.7; O2SAT 93
[2020-04-05] MEDS: Lisinopril 10 MG Tablet PO ×2 (05:40→17:11)
[2020-04-05] MEDS: hydroCHLOROthiazide 25 MG Tablet PO (05:40)
[2020-04-05] MEDS: Clopidogrel Bisulfate 75 MG Tablet PO (05:40)
[2020-04-05] MEDS: Levothyroxine 125 MCG Tablet PO (05:40)
[2020-04-05] MEDS: Anastrozole 1 MG Tablet PO (05:41)
[2020-04-05] MEDS: Menthol/Lanolin/Calamine/Znox 113 GM Tube 1 APPLIC TOPICAL ×2 (05:41→21:43)
[2020-04-05] MEDS: amLODIPine 5 MG Tablet PO (05:41)
[2020-04-05] MEDS: Nystatin Powder 15gm Bottle 1 APPLIC TOPICAL ×2 (05:51→17:11)
--- NOTE | 2020-04-05 05:52 | NURSING ---
Old nicotine patch removed from right deltoid and new patch applied to left deltoid.
[2020-04-05 06:26] LABS: Bedside Glucose 88 mg/dL (70-110)
[2020-04-05] MEDS: Calcium (Elemental) 500 MG Tablet PO ×2 (08:17→17:11)
[2020-04-05] MEDS: Insulin Lispro 100 UNIT/ML INSULN.PEN SC ×3 (08:18→17:36)
[2020-04-05] MEDS: metFORMIN HCl 500 MG Tablet PO ×2 (08:18→17:11)
[2020-04-05] MEDS: Magnesium Oxide 400 MG Tablet PO ×2 (08:18→17:11)
[2020-04-05] MEDS: Acetaminophen 500 MG Tablet 1000 MG PO (09:28)
[2020-04-05 11:21] LABS: Bedside Glucose 217 mg/dL (70-110)
--- NOTE | 2020-04-05 12:44 | CASEMGMT ---
Social Work SW spoke with pt who is agreeable to pt discharge on 04/08/20. Pt is agreeable to home health services PT/OT/ST/[employer] and referral as made to [facility]. [facility] states pt insurance does not always cover a [employer] but if so, it will be provided. Pt made aware. Pt has needed DME and pt and spouse both state they feel pt will be able to function well at home. Pt to tranport pt home and and son will assist with care needs as required. Pt has been tearful throughout stay and SW spoke with pt about this. Pt denies feelings of depression and states she is crying because she is happy to go home. SW provided a list of counseling services but pt denies need for SW to make a referral at this time. No further discharge needs. Plan: d/c 04/08/20 home with family and [facility] PT/OT/ST/[employer] [facility] SERGEY Pantoja
[2020-04-05 15:35] VITALS: BP 122/65; PULSE 86; RESP 18; TEMP 36.2; O2SAT 94
[2020-04-05 17:01] LABS: Bedside Glucose 161 mg/dL (70-110)
[2020-04-05] MEDS: Rivaroxaban 10 MG Tablet PO (17:11)
--- NOTE | 2020-04-05 20:51 | DCINST_ITS ---
- Discharge Diagnoses Current Active Problems: Current Active and Chronic Problems (Last Reviewed 03/21/20 @ 11:[address] Ulises Rainey MD) Dysarthria (Acute) Left hemiparesis (Acute) Marijuana abuse (Chronic) Closed right hip fracture (Chronic) DVT (deep venous thrombosis) (Chronic) Tobacco abuse (Chronic) You will use the following diet at home:: No restrictions, Regular Your food should be the consistency of: Regular Your liquids should be the consistency of: Regular/Thin Discharge Activity: Return to Normal Activity, May Shower, Use Walker Weight Bearing Status: Weight bearing as tolerated Call your doctor if you observe: Fever of 101 or Higher, Inability to urinate, Inability to have a bowel movement, Shortness of breath, Chest pain, Uncontrolled pain Allergies/Adverse Reactions: Allergies aspirin Allergy (Unknown, Verified 03/21/20 10:36) Nausea albuterol Adverse Reaction (Verified 03/21/20 10:36) I GET VERY SHAKEY/HYPERVENTILATING Penicillins Adverse Reaction (Verified 03/21/20 10:36) Nausea/Vom/Diarrhea Medications to take at Discharge Alendronate Sodium [Fosamax] 70 mg PO QWEEK 03/21/20 Amlodipine [Norvasc] 5 mg PO DAILY 03/21/20 Anastrozole [Arimidex] 1 mg PO DAILY 03/21/20 Calcium Carbonate [Calcium] 600 mg PO BID 03/21/20 Hydrochlorothiazide [Hctz] 25 mg PO DAILY 03/21/20 Insulin Glargine [Lantus SoloStar Pen] 15 units SUBCUT QHS 03/21/20 Levothyroxine [Synthroid] 125 mcg PO DAILY@0600 03/21/20 Potassium Chloride [K-Dur] 40 meq PO DAILYCM 03/21/20 Rivaroxaban [Xarelto] 10 mg PO DAILY@1700 03/21/20 Cholecalciferol (VIT D3) [Vitamin D3] 2,000 unit PO DAILY 03/23/20 Lisinopril [Zestril] 10 mg PO BID 03/23/20 Magnesium Oxide [Mag-Ox 400] 400 mg PO BIDCM 03/23/20 metFORMIN HCl [Glucophage] 500 mg PO BIDCM 03/23/20 Acetaminophen [Tylenol] 1,000 mg PO Q6H PRN PRN tab 07/01/20 Atorvastatin Calcium [Lipitor] 80 mg PO QHS #30 tab 04/05/20 Clopidogrel Bisulfate [Plavix] 75 mg PO DAILY #30 tab 04/05/20 Insulin Lispro [Humalog KwikPen] 5 unit SUBCUT TIDAC #1 insuln.pen 04/05/20 Menthol/Lanolin/Calamine/Znox [Calmoseptine Ointment] 1 applic TOPICAL 0600,2200 tube 04/05/20 Mirtazapine [Remeron] 7.5 mg PO QHS #30 tab 04/05/20 Nicotine [Nicoderm Cq] 21 mg TRANSDERM. DAILY #30 patch 04/05/20 Nystatin Powder [Mycostatin Powder] 1 applic TOPICAL BID bottle 04/05/20 The following prescriptions were given: Insulin Lispro [Humalog KwikPen] 5 unit SUBCUT TIDAC #1 insuln.pen Transmission Status: Pending to [facility] Atorvastatin Calcium [Lipitor] 80 mg PO QHS #30 tab Transmission Status: Pending to [facility] Nicotine [Nicoderm Cq] 21 mg TRANSDERM. DAILY #30 patch Transmission Status: Pending to [facility] Clopidogrel Bisulfate [Plavix] 75 mg PO DAILY #30 tab Transmission Status: Pending to [facility] Mirtazapine [Remeron] 7.5 mg PO QHS #30 tab Transmission Status: Pending to [facility] Primary Care Physician: Tera Butts MD [Primary Care Provider] - Please follow up with your Primary Care Physician in: 1 week. Test Results: Test results from this visit will be discussed in further detail at your follow- up appointment, if applicable. Please Follow Up With: CT SCAN AT [facility] When: lung screen Proposed Discharge Date: 04/08/20
--- NOTE | 2020-04-05 20:53 | DS.PCM_ITS ---
Discharge Date and Diagnosis - Problem List Patient Problems: Active and Suspected Problems (Last Reviewed 03/21/20 @ 11:[address] Ulises Rainey MD) Dysarthria (Acute) Left hemiparesis (Acute) Date of Admission: 03/21/20 Date of Discharge: 04/08/20 - Primary Discharge Diagnosis Acute Problems: Active Problems (Last Reviewed 03/21/20 @ 11:[address] Ulises Rainey MD) Dysarthria (Acute) Left hemiparesis (Acute) - Secondary Discharge Diagnosis Chronic Problems: Chronic Problems (Last Reviewed 03/21/20 @ 11:[address] Ulises Rainey MD) Fall (Chronic) Sacral fracture (Chronic) Vertigo (Chronic) Osteoarthritis (Chronic) Hypokalemia (Chronic) Marijuana smoker, continuous (Chronic) Marijuana abuse (Chronic) Closed right hip fracture (Chronic) DVT (deep venous thrombosis) (Chronic) Tobacco abuse (Chronic) Type 2 diabetes mellitus (Chronic) Hypothyroidism (Chronic) Vision problems (Chronic) Thyroid disease (Chronic) High blood pressure (Chronic) Hearing problem (Chronic) Diabetes (Chronic) Carpal tunnel syndrome (Chronic) Breast cancer (Chronic) Asthma (Chronic) Arthritis (Chronic) Hospital Course and Treatment Imaging Results: 03/24/20 13:13 Diet: Carbohydrate Controlled Food consistency:: Mechanical Soft/Ground Liquid Consistency:: Regular/Thin Is pt able to select menu?: Yes Diet Comments: 1:1 SUPERVISION, No straws, HOB 90, MEDS CRUSHED W/PUREES Clinical Impression(s) from Imaging Studies Abdomen X-Ray 03/26/20 20:45 IMPRESSION: No definite acute or significant abnormality seen. Electronically Signed: Markie Mathews MD at 22:41 EDT , Service support , Labs (Last 48 Hours) 04/03/20 04/04/20 04/04/20 20:57 06:09 10:50 POC Glucose 170 H 84 190 H 04/04/20 04/04/20 04/05/20 16:49 21:23 06:01 POC Glucose 159 H 118 H 88 04/05/20 04/05/20 11:14 16:57 POC Glucose 217 H 161 H Operations: None, - - Right hip ORIF, intramedullary nail fixation Procedures: None Summary of Care Provided: The patient is a 64 year old Female with below past medical history hospitalized for right sided stroke, admitted to TCU with debility, here for rehabilitation, strengthening, prior to discharge home with . Mirtazapine 7.5MG QHS added for appetite stimulation, can discontinue as outpatient. Humalog 5 units TID added for sugar control, can discontinue as outpatient. 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 Patient Problems: Active and Suspected Problems (Last Reviewed 03/21/20 @ 11:[address] Ulises Rainey MD) Dysarthria (Acute) Left hemiparesis (Acute) - Physical Exam Vitals/I&O's: Vital Signs Temp Pulse Resp BP Pulse Ox 97.2 F L 86 18 122/65 H 94 04/05/20 15:35 04/05/20 15:35 04/05/20 15:35 04/05/20 15:35 04/05/20 15:35 Oxygen Delivery Method Room Air Weight: 50.859 kg Body Mass Index (BMI) 21.5 Finger Stick Blood Glucose 154 Intake and Output for Last 24 Hours 04/03/20 04/04/20 04/05/20 23:59 23:59 23:59 Intake Total 480 / 480 360 / 360 480 / 480 Balance 480 / 480 360 / 360 480 / 480 Laboratory Results 04/04/20 21:23: POC Glucose 118 H 04/05/20 06:01: POC Glucose 88 04/05/20 11:14: POC Glucose 217 H 04/05/20 16:57: POC Glucose 161 H Current Medications Acetaminophen (Tylenol) 1,000 mg PO Q6H PRN PRN PRN Reason: Pain Score 1-3/10 Last Admin: 04/05/20 09:28 Dose: 1,000 mg Documented by: Alendronate Sodium (Fosamax) 70 mg PO Mo@0600 [facility] Last Admin: 04/03/20 06:07 Dose: 70 mg Documented by: Amlodipine Besylate (Norvasc) 5 mg PO DAILY [facility] Last Admin: 04/05/20 05:41 Dose: 5 mg Documented by: Anastrozole (Arimidex) 1 mg PO DAILY [facility] Last Admin: 04/05/20 05:41 Dose: 1 mg Documented by: Atorvastatin Calcium (Lipitor) 80 mg PO QHS [facility] Last Admin: 04/04/20 23:08 Dose: 80 mg Documented by: Bisacodyl (Dulcolax) 10 mg RECTAL DAILY PRN PRN Reason: Constipation Calamine/Phenol (Calmoseptine Ointment) 1 applic TOPICAL 0600,2200 [facility]; Protocol Last Admin: 04/05/20 05:41 Dose: 1 applicatio Documented by: Calcium Carbonate (Os-Rian 500) [facility] Last Admin: 04/05/20 17:11 Dose: 500 mg Documented by: Cholecalciferol (Vitamin D (25mcg)) 2,000 unit PO DAILY [facility] Last Admin: 04/05/20 05:40 Dose: 2,000 unit Documented by: Clopidogrel Bisulfate (Plavix) 75 mg PO DAILY [facility] Last Admin: 04/05/20 05:40 Dose: 75 mg Documented by: Hydrochlorothiazide (Hctz) 25 mg PO DAILY [facility] Last Admin: 04/05/20 05:40 Dose: 25 mg Documented by: Insulin Glargine (Lantus (Bk)) 15 units SC QHS [facility] Last Admin: 04/04/20 22:59 Dose: 15 u Documented by: Insulin Human Lispro (Humalog Kwikpen ([facility])) 5 [facility] Last Admin: 04/05/20 17:36 Dose: 5 u Documented by: Levothyroxine Sodium (Synthroid) 125 mcg PO DAILY@0600 [facility] Last Admin: 04/05/20 05:40 Dose: 125 mcg Documented by: Lisinopril (Zestril) 10 mg PO BID [facility] Last Admin: 04/05/20 17:11 Dose: 10 mg Documented by: Magnesium Oxide (Mag-Ox 400) 400 [facility]UN[facility] Last Admin: 04/05/20 17:11 Dose: 400 mg Documented by: Metformin HCl (Glucophage) 500 [facility] Last Admin: 04/05/20 17:11 Dose: 500 mg Documented by: Mirtazapine (Remeron) 7.5 mg PO QHS [facility] Last Admin: 04/04/20 23:07 Dose: 7.5 mg Documented by: Nicotine (Nicoderm Cq (Pbkc)) 21 mg TRANSDERM. DAILY [facility] Last Admin: 04/05/20 05:41 Dose: 21 mg Documented by: Nystatin (Mycostatin Powder) 1 applic TOPICAL BID [facility]; Protocol Last Admin: 04/05/20 17:11 Dose: 1 applicatio Documented by: Polyethylene Glycol (Miralax) 17 gm PO DAILY [facility] Last Admin: 04/05/20 05:39 Dose: Not Given Documented by: Potassium Chloride (K-Dur) 40 meq PO [facility]ILYUN[facility] Last Admin: 04/05/20 08:18 Dose: 40 meq Documented by: Rivaroxaban (Xarelto) 10 mg PO DAILY@1700 [facility] Last Admin: 04/05/20 17:11 Dose: 10 mg Documented by: Senna/Docusate Sodium (Senokot-S, Bonny-Colace) 1 tablet PO BID [facility] Last Admin: 04/05/20 17:12 Dose: Not Given Documented by: Discharge Diet: No Restrictions Discharge Activity: Return to Normal Activity, May Shower, Use Walker Weight Bearing Status: Weight bearing as tolerated Call your doctor if you observe: Fever of 101 or Higher, Inability to urinate, Inability to have a bowel movement, Shortness of breath, Chest pain, Uncont rolled pain Home Medications: Medications to take at Discharge Alendronate Sodium [Fosamax] 70 mg PO QWEEK 03/21/20 Amlodipine [Norvasc] 5 mg PO DAILY 03/21/20 Anastrozole [Arimidex] 1 mg PO DAILY 03/21/20 Calcium Carbonate [Calcium] 600 mg PO BID 03/21/20 Hydrochlorothiazide [Hctz] 25 mg PO DAILY 03/21/20 Insulin Glargine [Lantus SoloStar Pen] 15 units SUBCUT QHS 03/21/20 Levothyroxine [Synthroid] 125 mcg PO DAILY@0600 03/21/20 Potassium Chloride [K-Dur] 40 meq PO DAILY 03/21/20 Rivaroxaban [Xarelto] 10 mg PO DAILY@1700 03/21/20 Cholecalciferol (VIT D3) [Vitamin D3] 2,000 unit PO DAILY 03/23/20 Lisinopril [Zestril] 10 mg PO BID 03/23/20 Magnesium Oxide [Mag-Ox 400] 400 mg PO BID 03/23/20 metFORMIN HCl [Glucophage] 500 mg PO BID 03/23/20 Acetaminophen [Tylenol] 1,000 mg PO Q6H PRN PRN tab 04/05/20 Atorvastatin Calcium [Lipitor] 80 mg PO QHS #30 tab 04/05/20 Clopidogrel Bisulfate [Plavix] 75 mg PO DAILY #30 tab 04/05/20 Insulin Lispro [Humalog KwikPen] 5 unit SUBCUT TIDAC #1 insuln.pen 04/05/20 Menthol/Lanolin/Calamine/Znox [Calmoseptine Ointment] 1 applic TOPICAL 0600,2200 tube 04/05/20 Mirtazapine [Remeron] 7.5 mg PO QHS #30 tab 04/05/20 Nicotine [Nicoderm Cq] 21 mg TRANSDERM. DAILY #30 patch 04/05/20 Nystatin Powder [Mycostatin Powder] 1 applic TOPICAL BID bottle 04/05/20 Following Prescrptions Were Given to Patient: Insulin Lispro [Humalog KwikPen] 5 unit SUBCUT TIDAC #1 insuln.pen Transmission Status: Pending to [facility]30 Atorvastatin Calcium [Lipitor] 80 mg PO QHS #30 tab Transmission Status: Pending to [facility]30 Nicotine [Nicoderm Cq] 21 mg TRANSDERM. DAILY #30 patch Transmission Status: Pending to [facility] #30 Clopidogrel Bisulfate [Plavix] 75 mg PO DAILY #30 tab Transmission Status: Pending to [facility]30 Mirtazapine [Remeron] 7.5 mg PO QHS #30 tab Transmission Status: Pending to [facility]30 Primary Care Physician: Tera Butts MD [Primary Care Provider] - Please follow up with your Primary Care Physician in: 1 week. Please Follow Up With: CT SCAN AT [facility] When: lung screen Disposition: Home with Home Health Minutes spent on discharge:: 35 Patient Condition:: Stable Medical Necessity - Tobacco Use Smoking Status: Heavy Smoker (>10/day) Tobacco Use: Cigarettes Meaningful Use Info Meaningful Use Diagnoses (Choose all that apply): None applicable
[2020-04-05] MEDS: Atorvastatin Calcium 80 MG Tablet PO (21:36)
[2020-04-05] MEDS: Mirtazapine 15 MG Tablet 7.5 MG PO (21:37)
[2020-04-05 21:51] LABS: Bedside Glucose 132 mg/dL (70-110)
[2020-04-05 21:55] VITALS: PULSE 76; RESP 16; O2SAT 96
[2020-04-06 06:25] VITALS: BP 121/77; PULSE 74; RESP 16; TEMP 36.6; O2SAT 96
[2020-04-06 06:26] LABS: Bedside Glucose 89 mg/dL (70-110)
[2020-04-06] MEDS: amLODIPine 5 MG Tablet PO (06:29)
[2020-04-06] MEDS: Clopidogrel Bisulfate 75 MG Tablet PO (06:29)
[2020-04-06] MEDS: hydroCHLOROthiazide 25 MG Tablet PO (06:29)
[2020-04-06] MEDS: Levothyroxine 125 MCG Tablet PO (06:29)
[2020-04-06] MEDS: Anastrozole 1 MG Tablet PO (06:29)
[2020-04-06] MEDS: Lisinopril 10 MG Tablet PO ×2 (06:29→17:13)
[2020-04-06] MEDS: Menthol/Lanolin/Calamine/Znox 113 GM Tube 1 APPLIC TOPICAL ×2 (06:30→22:24)
[2020-04-06] MEDS: Nystatin Powder 15gm Bottle 1 APPLIC TOPICAL ×2 (06:31→17:12)
[2020-04-06] MEDS: Magnesium Oxide 400 MG Tablet PO ×2 (08:12→16:16)
[2020-04-06] MEDS: Calcium (Elemental) 500 MG Tablet PO ×2 (08:12→16:16)
[2020-04-06] MEDS: metFORMIN HCl 500 MG Tablet PO ×2 (08:12→16:16)
[2020-04-06] MEDS: Insulin Lispro 100 UNIT/ML INSULN.PEN SC ×3 (08:13→17:11)
[2020-04-06 11:01] LABS: Bedside Glucose 148 mg/dL (70-110)
--- NOTE | 2020-04-06 13:50 | MDS.RN ---
Pain interview for muna 04/08/20 completed.
[2020-04-06 14:15] VITALS: BP 100/73; PULSE 85; RESP 16; TEMP 36.9; O2SAT 95
[2020-04-06] MEDS: Rivaroxaban 10 MG Tablet PO (16:17)
--- NOTE | 2020-04-06 16:58 | CASEMGMT ---
Brief interview for mental status (BIMS) and resident mood assessment (PHQ-9) completed on this day. BIMS score . PHQ-9 score 12/30. Sanjiv DARNELL, MARIA DOLORES
[2020-04-06 17:00] LABS: Bedside Glucose 108 mg/dL (70-110)
[2020-04-06 21:11] LABS: Bedside Glucose 103 mg/dL (70-110)
[2020-04-06] MEDS: Atorvastatin Calcium 80 MG Tablet PO (22:19)
[2020-04-06] MEDS: Mirtazapine 15 MG Tablet 7.5 MG PO (22:19)
[2020-04-07 04:00] VITALS: BP 125/79; PULSE 77; RESP 15; TEMP 37; O2SAT 92
[2020-04-07] MEDS: Anastrozole 1 MG Tablet PO (05:20)
[2020-04-07] MEDS: hydroCHLOROthiazide 25 MG Tablet PO (05:21)
[2020-04-07] MEDS: Lisinopril 10 MG Tablet PO ×2 (05:21→18:08)
[2020-04-07] MEDS: Levothyroxine 125 MCG Tablet PO (05:21)
[2020-04-07] MEDS: Clopidogrel Bisulfate 75 MG Tablet PO (05:21)
[2020-04-07] MEDS: amLODIPine 5 MG Tablet PO (05:21)
[2020-04-07] MEDS: Menthol/Lanolin/Calamine/Znox 113 GM Tube 1 APPLIC TOPICAL ×2 (05:29→21:19)
[2020-04-07] MEDS: Nystatin Powder 15gm Bottle 1 APPLIC TOPICAL ×2 (05:29→18:08)
[2020-04-07 06:31] LABS: Bedside Glucose 121 mg/dL (70-110)
[2020-04-07 06:58] LABS: Absolute Neutrophil Count 9.8 X10^3/uL (2.0-7.7); Basophil# 0.11 X10^3/uL; Basophil% 0.8 % (0-1); Eosinophil# 0.52 X10^3/uL; Eosinophils% 3.7 % (0-5); Hematocrit 38.4 % (37-47); Hemoglobin 11.9 g/dL (12.0-15.0); Lymphocyte % 20.6 % (19-41); Mean Corpuscular Volume 83.8 fL (81-99); Mean Platelet Vol. 10.3 fl (6.2-12.0); Monocyte# 0.63 X10^3/uL; Monocyte% 4.5 % (0-10); NRBC Flagged by Analyzer 0 % (0-5); Neutrophil # 9.81 X10^3/uL (2.7-7.7); Neutrophil % 69.8 % (47-70); Platelet Count 443 K/mm3 (150-450); RBC Distribution Width CV 14.5 % (11.6-14.6); RBC Distribution Width SD 43.3 fl (35.1-43.9); Red Blood Count 4.58 M/mm3 (4.2-5.4); White Blood Count 14.1 K/mm3 (4.4-11.0)
[2020-04-07 07:21] LABS: Anion Gap 4 (5-15); BUN 19 mg/dL (7-18); BUN/Creat Ratio 23.3 RATIO (10-20); Calcium,Total 8.8 mg/dL (8.5-10.1); Chloride 107 mmol/L (98-107); Creatinine, Serum 0.82 mg/dL (0.55-1.02); EST Glomerular Filtration Rate 75 mL/min (>60); Est Glom Filt Rate - Afr Amer 90 mL/min (>60); Estimated Creatinine Clearance 49.13 ml/min; Glucose 120 mg/dL (74-106); Potassium 3.8 mmol/L (3.5-5.1); Sodium Level 138 mmol/L (136-145)
[2020-04-07] MEDS: metFORMIN HCl 500 MG Tablet PO ×2 (08:11→18:06)
[2020-04-07] MEDS: Calcium (Elemental) 500 MG Tablet PO ×2 (08:11→18:06)
[2020-04-07] MEDS: Magnesium Oxide 400 MG Tablet PO ×2 (08:11→18:07)
[2020-04-07] MEDS: Insulin Lispro 100 UNIT/ML INSULN.PEN SC ×3 (08:12→18:06)
[2020-04-07 09:27] VITALS: PULSE 94; RESP 16; O2SAT 95
[2020-04-07 11:30] LABS: Bedside Glucose 129 mg/dL (70-110)
[2020-04-07 15:02] VITALS: BP 101/62; PULSE 96; RESP 16; TEMP 36.6; O2SAT 97
[2020-04-07 16:41] LABS: Bedside Glucose 149 mg/dL (70-110)
[2020-04-07] MEDS: Rivaroxaban 10 MG Tablet PO (18:08)
[2020-04-07] MEDS: Atorvastatin Calcium 80 MG Tablet PO (21:09)
[2020-04-07] MEDS: Mirtazapine 15 MG Tablet 7.5 MG PO (21:09)
[2020-04-07 21:11] LABS: Bedside Glucose 186 mg/dL (70-110)
[2020-04-08 06:25] LABS: Bedside Glucose 75 mg/dL (70-110)
[2020-04-08] MEDS: Clopidogrel Bisulfate 75 MG Tablet PO (06:31)
[2020-04-08] MEDS: amLODIPine 5 MG Tablet PO (06:31)
[2020-04-08] MEDS: hydroCHLOROthiazide 25 MG Tablet PO (06:31)
[2020-04-08] MEDS: Levothyroxine 125 MCG Tablet PO (06:32)
[2020-04-08] MEDS: Lisinopril 10 MG Tablet PO (06:32)
[2020-04-08] MEDS: Anastrozole 1 MG Tablet PO (06:32)
[2020-04-08] MEDS: Menthol/Lanolin/Calamine/Znox 113 GM Tube 1 APPLIC TOPICAL (06:35)
[2020-04-08] MEDS: Nystatin Powder 15gm Bottle 1 APPLIC TOPICAL (06:38)
[2020-04-08 06:46] VITALS: BP 136/70; PULSE 77; RESP 16; TEMP 36.9; O2SAT 93
[2020-04-08 06:59] VITALS: PULSE 77; RESP 16; O2SAT 93
[2020-04-08] MEDS: metFORMIN HCl 500 MG Tablet PO (07:49)
[2020-04-08] MEDS: Magnesium Oxide 400 MG Tablet PO (07:49)
[2020-04-08] MEDS: Calcium (Elemental) 500 MG Tablet PO (07:51)
== END 2020-04-08 10:05 | disposition home health service (06) | DRG 57 ==
PROVIDERS: Admitting Provider Family Medicine Geriatric Medicine; PCP Internal Medicine; Visit Provider Family Medicine Geriatric Medicine
DX: I69.354 Hemiplegia and hemiparesis following cerebral infarction affecting left non-dominant side (principal); I69.322 Dysarthria following cerebral infarction; J45.909 Unspecified asthma, uncomplicated; E11.9 Type 2 diabetes mellitus without complications; E03.9 Hypothyroidism, unspecified; M19.90 Unspecified osteoarthritis, unspecified site; F17.210 Nicotine dependence, cigarettes, uncomplicated; M81.0 Age-related osteoporosis without current pathological fracture; I10 Essential (primary) hypertension; C50.919 Malignant neoplasm of unspecified site of unspecified female breast; E78.5 Hyperlipidemia, unspecified; E55.9 Vitamin D deficiency, unspecified; E87.6 Hypokalemia; Z86.718 Personal history of other venous thrombosis and embolism; F32.9 Major depressive disorder, single episode, unspecified; B35.1 Tinea unguium
CPT/HCPCS: 36415; 74019; 80048; 82962; 85025; 87493; 87506; 87635; 92507; 92523; 92526; 92610; 97110; 97116; 97162; 97166; 97530; 97535; 97802; G2023; U0003

== ENCOUNTER → 2020-06-13 11:34 | Outpatient (CLI) | payer BC, SELFPAY ==
[2020-06-13 11:14] VITALS: BMI 21.5
[2020-06-13 12:57] LABS: Magnesium 1.7 mg/dL (1.6-2.6); Thyroid Stim Hormone (TSH) 0.02 uIU/mL (0.358-3.74)
== END ==
PROVIDERS: PCP Internal Medicine; Visit Provider Internal Medicine
DX: E03.9 Hypothyroidism, unspecified (principal); E83.42 Hypomagnesemia
CPT/HCPCS: 36415; 83735; 84443

== ENCOUNTER 2020-07-16 12:01 | Emergency (ER) | payer BC, SELFPAY ==
[2020-06-13 11:14] VITALS: BMI 21.5
[2020-07-16 12:02] VITALS: BP 143/92; PULSE 99; RESP 16; TEMP 36.2; O2SAT 99; BMI 21.9
--- NOTE | 2020-07-16 12:36 | RAD_ITS ---
STUDY: X-RAY CHEST REASON FOR EXAM: Female, 65 years old. LEFT ARM PAIN. HX MASTECTOMY, CVA TECHNIQUE: AP COMPARISON: 01/12/2020 FINDINGS: Left breast is surgically absent. The lungs are clear and expanded. There is no demonstrated pleural abnormality. Normal size heart. Normal mediastinum and jason. Normal visualized pulmonary arteries. Normal visualized aortic arch and descending thoracic aorta. Normal visualized thoracic spine. Normal visualized ribs, clavicles, and shoulders. There is no demonstrated abnormality of the visualized soft tissue structures of the upper abdomen. RAD/Chest 1 View (Portable) IMPRESSION: Stable, nonacute portable x-ray examination of the chest. Electronically Signed: Jose A Wang MD (Brooks) at 13:56 EDT , Service support ,
--- NOTE | 2020-07-16 12:36 | EKG12_ITS ---
Test Reason : UPPER EXTREMETY Blood Pressure : / mmHG Vent. Rate : 094 BPM Atrial Rate : 094 BPM P-R Int : 148 ms QRS Dur : 078 ms QT Int : 374 ms P-R-T Axes : 057 021 -67 degrees QTc Int : 467 ms Normal sinus rhythm Septal infarct , age undetermined Nonspecific T- wave abnormality Abnormal ECG Confirmed by KATHARINA LEO, MYRON ([id number]), news assignment editor BRIGITTE VILLEGAS ([id number]) on 07/18/2020 12:52:47 PM Referred By: HILARY Confirmed By:MYRON POSADAS MD
--- NOTE | 2020-07-16 12:37 | RAD_ITS ---
STUDY: X-RAY - LEFT HUMERUS REASON FOR EXAM: Female, 65 years old. LEFT ARM PAIN. NKI TECHNIQUE: 2 view(s) of the humerus. COMPARISON: None. FINDINGS: Normal visualized humerus. There is no demonstrated fracture or osseous destructive process. There is no demonstrated soft tissue abnormality. Left breast is surgically absent. RAD/Humerus min 2 Views IMPRESSION: No fracture or malalignment. No lytic or sclerotic bone lesions. Electronically Signed: Jose A Wang MD (Brooks) at 13:56 EDT , Service support ,
--- NOTE | 2020-07-16 12:37 | ED.VIS.GEN ---
History of Present Illness Chief Complaint: Upper Extremity Injury Informant: Patient Onset: Days Context: Gradual Onset Current Severity: Moderate Maximum Severity: Moderate Narrative: Patient presents with a couple day history of left upper extremity pain. She denies any known injury. She states she had worsened pain with trying to move her arm. She is right-hand dominant. She has not taken anything for pain at this time. She denies paresthesias. She does have history of CVA with chronic left-sided weakness but states this is at her baseline. - Past Medical History (1) Stroke Status: Chronic (2) Arthritis Status: Chronic (3) Asthma Status: Chronic (4) Breast cancer Status: Chronic (5) Closed right hip fracture Status: Chronic (6) DVT (deep venous thrombosis) Status: Chronic (7) Diabetes Status: Chronic (8) High blood pressure Status: Chronic (9) Hypothyroidism Status: Chronic (10) Type 2 diabetes mellitus Status: Chronic (11) Vertigo Status: Chronic Past Medical History - Allergies and Home Meds Allergies/Adverse Reactions: Allergies aspirin Allergy (Unknown, Verified 07/16/20 12:02) Nausea albuterol Adverse Reaction (Verified 07/16/20 12:02) I GET VERY SHAKEY/HYPERVENTILATING Penicillins Adverse Reaction (Verified 07/16/20 12:02) Nausea/Vom/Diarrhea Primary Care Physician: Tera Butts MD [Primary Care Provider] - Prior records reviewed: Yes Surgical History: - - ORIF right hip, intramedullary nail, locked 01/11/2020. Smoking Status: Heavy Smoker (>10/day) - Family History Maternal Family History: Family History (Last Reviewed 03/21/20 @ 11:[address] Ulises Rainey MD) Father Cancer Brother Heart disease Family History: Reports: No pertinent history Paternal Family History: Family History (Last Reviewed 03/21/20 @ 11:[address] Ulises Rainey MD) Father Cancer Brother Heart disease Family History: Reports: No pertinent history Review of Systems General: Denies: Chills, Fever Eyes: Denies: Visual changes - bilaterally ENT: Denies: Bilateral ear pain Cardiovascular: Denies: Chest pain Respiratory: Denies: Dyspnea, Cough Gastrointestinal: Denies: Abdominal pain, Nausea, Vomiting, Diarrhea Musculoskeletal: Reports: Extremity Pain. Denies: Swelling Neurological: Denies: Parasthesia, Numbness Hematologic: Denies: Easy bruising, Easy bleeding Allergy: Denies: Uticaria Physical Exam Vital Signs/Narrative: Vital Signs Temp Pulse Resp BP Pulse Ox 07/16/20 12:02 97.2 F L 99 16 143/92 H 99 Inital Vital Signs reviewed: Yes General: Well nourished, Well developed Head: Normocephalic ENT: Moist mucous membranes Neck: Supple Cardiovascular: Regular rate, Regular rhythm Respiratory: No distress, CTA bilaterally Abdomen: Soft, Nontender Extremities: - - Tenderness palpation around the left shoulder and proximal left humerus. No deformity noted. No overlying skin changes. Strong distal pulses noted. Good range of motion. Skin: Normal color Neurological: Alert, Oriented x3 Psychological: Normal affect Diagnostic/Tx/Re-eval Impressions Chest X-Ray 07/16/20 12:36 IMPRESSION: Stable, nonacute portable x-ray examination of the chest. Electronically Signed: Jose A Wang MD (Brooks) at 13:56 EDT , Service support , Humerus X-Ray 07/16/20 12:37 IMPRESSION: No fracture or malalignment. No lytic or sclerotic bone lesions. Electronically Signed: Jsoe A Wang MD ([place]oks) at 13:56 EDT , Service support , 07/16/20 12:36 Chest 1 View (Portable) [RAD] Stat 07/16/20 12:37 Humerus min 2 Views [RAD] Stat Laboratory Results 07/16/20 07/16/20 12:50 12:50 WBC 15.6 H RBC 5.31 Hgb 13.8 Hct 43.6 MCV 82.1 MCH 26.0 L MCHC 31.7 L RDW Std Deviation 46.7 H RDW Coeff of Chad 15.7 H Plt Count 347 MPV 10.0 Immature Gran % (Auto) 0.600 Neut % (Auto) 70.0 Lymph % (Auto) 21.4 Pleasants % (Auto) 6.1 Eos % (Auto) 1.4 Baso % (Auto) 0.5 Absolute Neuts (auto) 10.9 H Absolute Lymphs (auto) 3.32 Nucleated RBC % 0 Sodium 139 Potassium 3.3 L Chloride 105 Carbon Dioxide 30.0 Anion Gap 4 L BUN 17 Creatinine 0.92 Estim Creat Clear Calc 43.21 Est GFR (MDRD) Af Amer 78 Est GFR (MDRD) Non-Af 65 BUN/Creatinine Ratio 18.5 Glucose 72 L Calcium 9.9 Troponin I < 0.015 - EKG Initial EKG Interpretation: Sinus Rhythm - Sinus at 94 with no acute ischemia. - Medical Decision Making Patient was given dose of [place] on arrival here. On repeat evaluation she is resting comfortably was able to sleep. Cardiac work-up is unremarkable. She does have reproducible pain over her left upper arm and I do believe this is musculoskeletal in nature. She will be given a short course of [place] for home. She is to follow-up with her PCP in the next 5 to 7 days. ED Disposition - Plan for ED Patient: Disposition: Home or Assisted Living Diagnosis: Musculoskeletal pain of left upper extremity Instructions: ED Shoulder Pain Uncertain Cause Prescriptions: Hydrocodone Bitart/Apap 5-325 [[place] 5MG-325MG] 1 tablet PO Q6H PRN PRN 3 Days #10 tablet PRN Reason: Pain Transmission Status: Sent to [facility] Referrals: Tera Butts MD [Primary Care Provider] - 5-7 Days
[2020-07-16] MEDS: HYDROcodone Bitartrate/Apap 5/325 Tablet PO (12:53)
[2020-07-16 13:01] LABS: Absolute Lymphocyte Count 3.32 X10^3/uL (0.83-4.51); Absolute Neutrophil Count 10.9 X10^3/uL (2.0-7.7); Basophil# 0.07 X10^3/uL; Basophil% 0.5 % (0-1); Eosinophil# 0.22 X10^3/uL; Eosinophils% 1.4 % (0-5); Hematocrit 43.6 % (37-47); Hemoglobin 13.8 g/dL (12.0-15.0); Lymphocyte # 3.32 X10^3/ul (4.0); Lymphocyte % 21.4 % (19-41); Mean Corp Hgb Conc 31.7 g/dL (32-36); Mean Corpuscular Volume 82.1 fL (81-99); Monocyte# 0.95 X10^3/uL; Monocyte% 6.1 % (0-10); NRBC Flagged by Analyzer 0 % (0-5); Platelet Count 347 K/mm3 (150-450); RBC Distribution Width CV 15.7 % (11.6-14.6); RBC Distribution Width SD 46.7 fl (35.1-43.9); Red Blood Count 5.31 M/mm3 (4.2-5.4); White Blood Count 15.6 K/mm3 (4.4-11.0)
[2020-07-16 13:19] LABS: Anion Gap 4 (5-15); BUN 17 mg/dL (7-18); BUN/Creat Ratio 18.5 RATIO (10-20); Calcium,Total 9.9 mg/dL (8.5-10.1); Chloride 105 mmol/L (98-107); Creatinine, Serum 0.92 mg/dL (0.55-1.02); EST Glomerular Filtration Rate 65 mL/min (>60); Est Glom Filt Rate - Afr Amer 78 mL/min (>60); Estimated Creatinine Clearance 43.21 ml/min; Glucose 72 mg/dL (74-106); Potassium 3.3 mmol/L (3.5-5.1); Sodium Level 139 mmol/L (136-145)
[2020-07-16 13:30] VITALS: BP 126/77; PULSE 89; RESP 16
[2020-07-16 14:16] VITALS: BP 118/74; PULSE 85; RESP 15
== END 2020-07-16 14:22 | disposition home or self-care (01) ==
PROVIDERS: Emergency Provider Emergency Medicine; PCP Internal Medicine
DX: M79.602 Pain in left arm (principal); M79.18 Myalgia, other site; I63.9 Cerebral infarction, unspecified; I69.354 Hemiplegia and hemiparesis following cerebral infarction affecting left non-dominant side; J45.909 Unspecified asthma, uncomplicated; M19.90 Unspecified osteoarthritis, unspecified site; E11.9 Type 2 diabetes mellitus without complications; I10 Essential (primary) hypertension; Z86.718 Personal history of other venous thrombosis and embolism; Z79.02 Long term (current) use of antithrombotics/antiplatelets; Z79.4 Long term (current) use of insulin; Z79.899 Other long term (current) drug therapy
CPT/HCPCS: 71045; 73060; 80048; 84484; 85025; 93005; 99285; A4216

== ENCOUNTER → 2020-07-20 10:36 | Outpatient (CLI) | payer BC, SELFPAY ==
[2020-07-19 09:51] VITALS: BMI 22.0
--- NOTE | 2020-07-20 11:05 | RAD_ITS ---
HISTORY: LEFT SHOULDER PAIN FOR 1 WEEK. NO KNOWN INJURY. ADDITIONAL HISTORY: None provided. EXAMINATION/TECHNIQUE: XR Shoulder Min 2 Views Left Number of images including paperwork: 4 COMPARISON: Humerus 07/16/2020 FINDINGS: BONES: No acute fracture. Mineralization appears decreased. JOINTS: No subluxation. SOFT TISSUES: No distinct foreign body. Left axillary surgical clips. RAD/Shoulder min 2 Views IMPRESSION: No acute osseous abnormality. at 1710 Reported and signed by: Ping Ross MD Electronically Signed: Ping Ross MD at 17:10 EDT Tel , Service support ,
== END ==
PROVIDERS: PCP Internal Medicine; Visit Provider Internal Medicine
DX: M25.512 Pain in left shoulder (principal)
CPT/HCPCS: 73030

== ENCOUNTER → 2020-09-11 11:43 | Outpatient (CLI) | payer BC, SELFPAY ==
[2020-09-11 11:03] VITALS: BMI 24.4
[2020-09-11 13:07] LABS: Thyroid Stim Hormone (TSH) 0.03 uIU/mL (0.358-3.74)
== END ==
PROVIDERS: PCP Internal Medicine; Visit Provider Internal Medicine
DX: E03.9 Hypothyroidism, unspecified (principal); E11.9 Type 2 diabetes mellitus without complications
CPT/HCPCS: 36415; 83036; 84443

== ENCOUNTER 2020-12-04 21:24 | Emergency (ER) | payer BC, SELFPAY ==
[2020-09-11 11:03] VITALS: BMI 24.4
[2020-12-04 21:25] VITALS: BP 153/103; PULSE 89; RESP 18; TEMP 36.1; O2SAT 95; BMI 24.2
[2020-12-04] MEDS: oxyCODONE 5 MG Tablet PO (21:52)
--- NOTE | 2020-12-04 22:08 | RAD_ITS ---
HISTORY: post rib pain ADDITIONAL HISTORY: None provided. COMPARISON: Chest 07/16/2020 EXAMINATION/TECHNIQUE: XR Ribs 4 Views W/ PA Chest Bilateral Bilateral FINDINGS: No acute fracture. Old left posterior lateral fifth rib fracture. Degenerative changes. No consolidation, pleural effusion or pneumothorax. Hyperinflation. Minimal linear opacities suggestive of subsegmental atelectasis versus scarring. Acute rib fractures can be difficult to visualize radiographically. Follow-up as clinically warranted. RAD/Ribs Zbigniew Min 4V w/PA Chest IMPRESSION: No acute rib fracture detected. at 2235 Reported and signed by: Ping Ross MD Electronically Signed: Ping Ross MD at 22:35 EST Tel , Service support ,
--- NOTE | 2020-12-04 22:42 | ED.DCSUM_ITS ---
History of Present Illness Chief Complaint: Back Narrative: Patient presents with left posterior rib pain. Is worse with twisting movement or palpation in that region especially when she lays down or sits against a seat. No rash in that region. She has no fever or chills she has no anterior chest pain she has no pleuritic component. She has no abdominal pain or urinary symptoms. No known trauma. Past medical history: Reviewed, includes COPD Medications: Reviewed Social history: Smoker Review of systems: All systems negative except as indicated General: Denies: Fever Eyes: Denies: Visual changes - bilaterally ENT: Denies: Rhinorrhea, Sore throat Cardiovascular: Denies: Chest pain Chest wall: There is left rib pain to palpation Respiratory: Denies: Dyspnea, Cough Gastrointestinal: Denies: Abdominal pain, Nausea, Vomiting Genitourinary: Denies: Dysuria Musculoskeletal: Denies: Myalgias Skin: Denies: Rash Neurological: Denies: Headache, no focal weakness Psych: Reports: negative Hematologic: Denies: Easy bruising, Easy bleeding Physical exam General: She appears chronically ill Head: Normocephalic, Atraumatic Eyes: Conjunctiva not pale ENT: Moist mucous membranes Neck: Supple, Nontender, No lymphadenopathy Cardiovascular: Regular rate, Regular rhythm Chest wall: There is left-sided posterior rib pain to palpation I did not see any rash or vesicles in that region. The pain is quite reducible. Respiratory: No distress, CTA bilaterally Abdomen: Soft, Nontender, Nondistended Back: Upper rib pain as in HPI otherwise no thoracic or lumbar spine tenderness no flank pain Extremities: Nontender, No edema Skin: Normal color, No rash Neurological: Alert, Normal Strength, Normal Sensation Psychological: Normal affect Past Medical History - Allergies and Home Meds Allergies/Adverse Reactions: Allergies aspirin Allergy (Unknown, Verified 12/04/20 21:29) Nausea albuterol Adverse Reaction (Verified 12/04/20 21:29) I GET VERY SHAKEY/HYPERVENTILATING Penicillins Adverse Reaction (Verified 12/04/20 21:29) Nausea/Vom/Diarrhea Primary Care Physician: Tera Butts MD [Primary Care Provider] - Surgical History: - - ORIF right hip, intramedullary nail, locked 01/11/2020. Smoking Status: Current every day smoker - Family History Maternal Family History: Family History (Last Reviewed 09/11/20 @ 11:15 by Ro De La Cruz) Father Cancer Brother Heart disease Family History: Reports: No pertinent history Paternal Family History: Family History (Last Reviewed 09/11/20 @ 11:15 by Ro De La Cruz) Father Cancer Brother Heart disease Family History: Reports: No pertinent history Physical Exam Vital Signs/Narrative: Vital Signs Temp Pulse Resp BP Pulse Ox 12/04/20 21:25 96.9 F L 89 18 153/103 H 95 Diagnostic/Tx/Re-eval Rib x-ray interpreted by radiologist and reviewed by me shows normal lungs no rib fracture is seen - Medical Decision Making Patient will be treated with analgesia, her pain is quite reproducible in the rib region. I emphasized again smoking cessation I will discharge in stable condition ED Disposition - Plan for ED Patient: Disposition: Psychiatric Hospital or Unit Diagnosis: Rib pain on left side Instructions: ED Chest Wall Pain, Costochondritis Prescriptions: Hydrocodone Bitart/Apap 5-325 [[place] 5MG-325MG] 1 tablet PO Q4H PRN PRN 2 Days #10 tablet PRN Reason: Pain Transmission Status: Sent to [facility] #30 Referrals: Tera Butts MD [Primary Care Provider] - 2 Days
--- NOTE | 2020-12-04 22:58 | ED.DEP ---
ED Disposition - Plan for ED Patient: Disposition: Psychiatric Hospital or Unit Diagnosis: Rib pain on left side Instructions: ED Chest Wall Pain, Costochondritis Prescriptions: Hydrocodone Bitart/Apap 5-325 [[place] 5MG-325MG] 1 tab PO Q4H PRN PRN 2 Days #10 tab PRN Reason: Pain Transmission Status: Received by [facility] #30 Referrals: Tera Butts MD [Primary Care Provider] - 2 Days
== END 2020-12-04 23:30 ==
PROVIDERS: Emergency Provider Emergency Medicine; PCP Internal Medicine
DX: R07.81 Pleurodynia (principal); J44.9 Chronic obstructive pulmonary disease, unspecified; F17.200 Nicotine dependence, unspecified, uncomplicated; Z82.49 Family history of ischemic heart disease and other diseases of the circulatory system; Z88.0 Allergy status to penicillin
CPT/HCPCS: 71111; 99283

== ENCOUNTER → 2021-01-12 15:39 | Outpatient (CLI) | payer BC, SELFPAY ==
[2021-01-12 10:07] VITALS: BMI 23.8
[2021-01-12 15:39] LABS: Mucous, Urine 0 SEEN /hpf (<or=2+)
[2021-01-12 16:47] LABS: Color, Urine Straw (Yellow); Glucose, Dipstick 1000 mg/dl (Normal); Ketone-Dipstick Negative (Negative); Leukocyte Esterase-Dipstick Negative /ul (Negative); Nitrite-Dipstick Negative (Negative); Occult Blood-Urine 10 /ul (Negative); Protein-Dipstick 500 mg/dl (Negative); Urine Bilirubin Dipstick Negative (Negative); Urine Clarity Clear (Clear); Urine Urobilinogen Normal (Normal)
[2021-01-12 17:05] LABS: Bacteria 1+ /hpf (None Seen); Red Blood Cells-Urine 0-5 SEEN /hpf (0-5); Squamous Epithelial Cells - UA 0-5 SEEN /hpf (5-10); White Blood Cells 0-5 SEEN /hpf (0-5)
== END ==
LOC: LABSPEC 15:39
PROVIDERS: PCP Internal Medicine; Referring Provider Internal Medicine; Visit Provider Internal Medicine
DX: R35.0 Frequency of micturition (principal)
CPT/HCPCS: 81001; 87086; 87088

== ENCOUNTER 2021-03-05 17:04 | Emergency (ER) | payer BC, SELFPAY ==
[2021-02-07 10:14] VITALS: BMI 23.8
[2021-03-05 17:05] VITALS: BP 128/102; PULSE 87; RESP 18; TEMP 36.2; O2SAT 96; BMI 24.7
--- NOTE | 2021-03-05 17:14 | RAD_ITS ---
STUDY: X-RAY - RIGHT ANKLE REASON FOR EXAM: Female, 65 years old. ankle pain TECHNIQUE: 3 view(s) of the ankle. COMPARISON: None. FINDINGS: Diffuse demineralization of the osseous structures. Normal medial and lateral malleoli. Normal tibiotalar articulation and ankle mortise. Normal visualized talus and calcaneus. A small plantar calcaneal spur is present as well as plantar fascial calcification. The visualized subtalar, talonavicular, calcaneocuboid and tarsal articulations are normal. There is no demonstrated fracture. The soft tissue structures are unremarkable. RAD/Ankle min 3 Views IMPRESSION: 1. A small plantar calcaneal spur is present as well as plantar fascial calcification. Electronically Signed: Henry Gale MD at 18:06 EDT , Service support ,
--- NOTE | 2021-03-05 17:15 | EX.ED.DYSGE1 ---
HPI History of Present Illness Chief Complaint: Lower Extremity Injury Narrative Narrative: 65-year-old female presenting with nontraumatic right ankle pain. She states she was sitting at a picnic and when she went to stand up her ankle started to hurt. She is ambulatory with antalgic gait. She denies any direct trauma. She has no numbness or tingling. She complains of some mild swelling. She states she smoked marijuana for pain control. [facility] Medical History Arthritis Asthma Breast cancer Carpal tunnel syndrome Diabetes Hearing problem High blood pressure Hypertension Right hip pain Thyroid disease Vision problems Home Medications alendronate 70 mg PO QWEEK 03/21/20 [History Last Taken Unknown] anastrozole 1 mg PO DAILY 03/21/20 [History Last Taken Unknown] hydrochlorothiazide 25 mg PO DAILY 03/21/20 [History Last Taken Unknown] rivaroxaban 10 mg PO DAILY@1700 03/21/20 [History Last Taken Unknown] cholecalciferol (vitamin D3) 2,000 unit PO DAILY 03/23/20 [History Last Taken Unknown] atorvastatin 80 mg PO QHS #30 tab 04/05/20 [Rx Last Taken Unknown] clopidogrel 75 mg PO DAILY #30 tab 04/05/20 [Rx Last Taken Unknown] mirtazapine 7.5 mg PO QHS #30 tab 04/05/20 [Rx Last Taken Unknown] magnesium oxide 400 mg (241.3 mg magnesium) tablet 400 mg PO BIDCM #180 tab 05/02/20 [Rx Last Taken Unknown] amlodipine 10 mg tablet 10 mg PO DAILY #90 tab 06/13/20 [Rx Last Taken Unknown] potassium chloride 20 mEq tablet,extended release(part/cryst) 40 meq PO DAILYCM #90 tab 06/30/20 [Rx Last Taken Unknown] enalapril maleate 10 mg tablet 10 mg PO BID #180 tab 07/07/20 [Rx Last Taken Unknown] calcium carbonate 600 mg calcium (1,500 mg) tablet 600 mg PO BID #180 tab 08/16/20 [Rx Last Taken Unknown] metformin 500 mg tablet 500 mg PO BIDCM #60 tab 09/06/20 [Rx Last Taken Unknown] compress.stocking,knee,reg,lrg #2 ea 09/11/20 [Rx Last Taken Unknown] levothyroxine 100 mcg tablet 100 mcg PO DAILY@0600 #60 tab 09/13/20 [Rx Last Taken Unknown] hydrocodone-acetaminophen 5-325mg 5mg-325mg 1 tab PO tab 12/06/20 [History Last Taken Unknown] naproxen sodium 220 mg capsule 220 mg PO BID PRN 12/06/20 [History Last Taken Unknown] insulin aspart U-100 100 unit/mL (3 mL) subcutaneous pen 7 unit SC TID 90 Days #18.9 ml 12/18/20 [Rx Last Taken Unknown] nicotine 14 mg/24 hr daily transdermal patch 1 patch TD Q24H #28 each 01/12/21 [Rx Last Taken Unknown] nicotine 21 mg/24 hr daily transdermal patch 1 patch TD Q24H #28 each 01/12/21 [Rx Last Taken Unknown] baclofen 5 mg tablet 5 mg PO BID PRN #20 tab 02/01/21 [Rx Last Taken Unknown] carvedilol 12.5 mg tablet 12.5 mg PO Q12H #60 tab 02/07/21 [Rx Last Taken Unknown] insulin glargine 100 unit/mL (3 mL) subcutaneous pen 25 unit SUBCUT QPM #15 ml 02/09/21 [Rx Last Taken Unknown] Allergy/AdvReac Type Severity Reaction Status Date / Time aspirin Allergy Unknown Nausea Verified 03/05/21 17:06 albuterol AdvReac I GET VERY Verified 03/05/21 17:06 SHAKEY/HYPERVENTILATING Penicillins AdvReac Nausea/Vom/ Verified 03/05/21 17:06 Diarrhea Family History Father Cancer bone cancer Brother Heart disease Surgical History History of appendectomy Social History Smoking Status: Current every day smoker tobacco type: cigarettes Tobacco: How many years used: 50 alcohol intake: never substance use type: marijuana and other details: smokes 4 joints a day ROS ROS ED Constitutional Constitutional ED: Denies chills, fever(s) or sweats Eyes Eyes: Denies blurry vision or change in vision ENT ENT ED: Denies ear pain, rhinorrhea or sore throat Cardiovascular Cardiovascular: Denies chest pain, palpitations or racing heartbeat Respiratory/Chest Respiratory/Chest: Denies cough, dyspnea or sputum Gastrointestinal Gastrointestinal: Denies abdominal pain, constipation, diarrhea or vomiting Genitourinary Genitourinary ED: Denies dysuria, hematuria or urinary frequency Musculoskeletal Musculoskeletal: Reports other Details: Right ankle pain ; Denies myalgias or neck pain Integumentary Denies abscess, Abrasions or rash Neurologic Neurologic: Denies headache(s), paresthesias or weakness Psychiatric Psychiatric: Denies anxiety, depression, suicidal ideation or suicidal thoughts Endocrine Endocrinology: Denies polydipsia or polyuria EXAM Physical Exam Const Vital Signs: 03/05/21 17:05 Temperature 97.2 F L Temperature Source Temporal Pulse Rate 87 Respiratory Rate 18 Blood Pressure 128/102 H Blood Pressure Mean 110 Pulse Ox 96 Oxygen Delivery Method Room Air Positive well nourished General Appearance ED: NAD HEENT Reports moist mucous membranes Negative for trauma Eyes PERRL and EOMs intact bilaterally Extremity Extremity Narrative: Tenderness to palpation over the distal lateral malleolus on the right. There is slight swelling here. There is no deformity. Right foot is neurovascular intact with brisk cap refill to all 5 toes. Neuro oriented x3 Sensorium / Orientation: alert Psych mental status grossly normal Skin no rashes or lesions noted and no wounds MDM MDM MDM Narrative Medical decision making narrative: Patient seen and evaluated on arrival for right ankle pain. She has no pain in the foot. She states she just stood up and it started to hurt. She denies any trauma. She had x-ray of the right ankle which shows a small calcaneal spur however on my interpretation there is no acute fracture or subluxation. Patient was placed in Julian wrap. She is counseled on alternating ice and heat as well as Tylenol and ibuprofen. Impression: 1 right ankle sprain Radiography Diagnostic Testing: Radiology Impression Ankle X-Ray 03/05/21 17:14 IMPRESSION: 1. A small plantar calcaneal spur is present as well as plantar fascial calcification. Electronically Signed: Henry Gale MD at 18:06 EDT , Service support , Discharge Plan Triage Chief Complaint: Lower Extremity Injury ED Provider: Tommie Valera Dx/Rx/DC Orders Instructions: ED Ankle Sprain (Adult) Prescriptions: No Action amlodipine 10 mg tablet 10 mg PO DAILY Qty: 90 RF: 3 (DME) compress.stocking,knee,reg,lrg Misc See Rx Instructions .MEDSUPPLY Qty: 2 RF: 1 insulin aspart U-100 [Novolog Flexpen U-100 Insulin] 100 unit/mL (3 mL) insulin pen 7 unit SC TID 90 Days Qty: 18.9 RF: 3 naproxen sodium [Aleve] 220 mg capsule 220 mg PO BID PRNRF: 0 hydrocodone-acetaminophen 5-325 mg tablet 1 tab PO RF: 0 carvedilol 12.5 mg tablet 12.5 mg PO Q12H Qty: 60 RF: 2 nicotine 21 mg/24 hr patch 24 hour 1 patch TD Q24H Qty: 28 RF: 0 nicotine 14 mg/24 hr patch 24 hour 1 patch TD Q24H Qty: 28 RF: 1 hydrochlorothiazide 25 MG tablet 25 mg PO DAILY RF: 0 anastrozole 1 MG tablet 1 mg PO DAILY RF: 0 alendronate 70 MG tablet 70 mg PO QWEEK RF: 0 rivaroxaban 10 MG tablet 10 mg PO DAILY@1700 RF: 0 cholecalciferol (vitamin D3) 1,000 UNIT tablet 2,000 unit PO DAILY RF: 0 mirtazapine 15 MG tablet 7.5 mg PO QHS Qty: 30 RF: 0 atorvastatin 80 MG tablet 80 mg PO QHS Qty: 30 RF: 0 clopidogrel 75 MG tablet 75 mg PO DAILY Qty: 30 RF: 0 magnesium oxide 400 mg (241.3 mg magnesium) tablet 400 mg PO BIDCM Qty: 180 RF: 3 potassium chloride 20 mEq tablet,ER particles/crystals 40 meq PO DAILYCM Qty: 90 RF: 2 enalapril maleate 10 mg tablet 10 mg PO BID Qty: 180 RF: 2 calcium carbonate 600 mg calcium (1,500 mg) tablet 600 mg PO BID Qty: 180 RF: 1 metformin 500 mg tablet 500 mg PO BIDCM Qty: 60 RF: 1 levothyroxine 100 mcg tablet 100 mcg PO DAILY@0600 Qty: 60 RF: 3 baclofen 5 mg tablet 5 mg PO BID PRN (Reason: muscle pain) Qty: 20 RF: 0 Lantus Solostar U-100 Insulin 100 unit/mL (3 mL) insulin pen 25 unit subcut QPM Qty: 15 RF: 3 Primary Care Provider: Tera Butts Referrals: Tera Butts MD [Primary Care Provider] - Disposition Disposition: Home, self care
[2021-03-05 19:12] VITALS: BP 138/79; PULSE 88; RESP 12; O2SAT 94
== END 2021-03-05 19:13 | disposition home or self-care (01) ==
PROVIDERS: Emergency Provider Student in an Organized Health Care Education/Training Program; PCP Internal Medicine
DX: S93.401A Sprain of unspecified ligament of right ankle, initial encounter (principal); X58.XXXA Exposure to other specified factors, initial encounter; Y93.89 Activity, other specified; Y92.89 Other specified places as the place of occurrence of the external cause; Y99.9 Unspecified external cause status; F12.90 Cannabis use, unspecified, uncomplicated; I10 Essential (primary) hypertension; E11.9 Type 2 diabetes mellitus without complications; Z85.3 Personal history of malignant neoplasm of breast; F17.210 Nicotine dependence, cigarettes, uncomplicated; M77.31 Calcaneal spur, right foot
CPT/HCPCS: 73610; 99282

== ENCOUNTER → 2021-03-09 11:39 | Outpatient (CLI) | payer BC, SELFPAY ==
[2021-03-09 11:04] VITALS: BMI 24.7
[2021-03-09 12:40] LABS: ALB/GLOB Ratio 0.9 RATIO (0.9-2.4); AST(SGOT) 9 U/L (15-37); Alanine Aminotransfer ALT/SGPT 14 U/L (13-56); Alkaline Phosphatase 184 U/L (45-117); Anion Gap 6 (5-15); BUN 15 mg/dL (7-18); BUN/Creat Ratio 13.8 RATIO (10-20); Calcium,Total 9.4 mg/dL (8.5-10.1); Chloride 99 mmol/L (98-107); Creatinine, Serum 1.09 mg/dL (0.55-1.02); EST Glomerular Filtration Rate 53 mL/min (>60); Est Glom Filt Rate - Afr Amer 64 mL/min (>60); Globulin 3.4 g/dL (2.2-4.2); Glucose 392 mg/dL (74-106); Potassium 3.7 mmol/L (3.5-5.1); Protein, Total 6.4 g/dL (6.4-8.2); Sodium Level 135 mmol/L (136-145)
[2021-03-09 14:58] LABS: Absolute Lymphocyte Count 3.03 X10^3/uL (0.83-4.51); Basophil# 0.11 X10^3/uL; Eosinophils% 1.8 % (0-5); Hematocrit 45.7 % (37-47); Hemoglobin 14.7 g/dL (12.0-15.0); Lymphocyte # 3.03 X10^3/ul (0.83-4.51); Lymphocyte % 27.4 % (19-41); Mean Corp Hgb Conc 32.2 g/dL (32-36); Mean Corpuscular Hgb 26.9 pg (27.0-32.0); Mean Corpuscular Volume 83.7 fL (81-99); Mean Platelet Vol. 11.2 fl (6.2-12.0); Monocyte# 0.63 X10^3/uL; Monocyte% 5.7 % (0-10); NRBC Flagged by Analyzer 0 % (0-5); Neutrophil # 7.02 X10^3/uL (2.7-7.7); Neutrophil % 63.4 % (47-70); Platelet Count 274 K/mm3 (150-450); RBC Distribution Width CV 13.9 % (11.6-14.6); RBC Distribution Width SD 42.3 fl (35.1-43.9); Red Blood Count 5.46 M/mm3 (4.2-5.4); White Blood Count 11.1 K/mm3 (4.4-11.0)
[2021-03-12 10:15] LABS: Thyroid Stim Hormone (TSH) 0.52 uIU/mL (0.358-3.74)
== END ==
LOC: BIMLAB 11:39
PROVIDERS: PCP Internal Medicine; Visit Provider Internal Medicine
DX: E03.9 Hypothyroidism, unspecified (principal); I10 Essential (primary) hypertension
CPT/HCPCS: 36415; 80053; 84443; 85025

== ENCOUNTER → 2021-06-29 11:19 | Outpatient (CLI) | payer BC, SELFPAY ==
[2021-06-29 12:12] LABS: Absolute Lymphocyte Count 2.94 X10^3/uL (0.83-4.51); Absolute Neutrophil Count 6.9 X10^3/uL (2.0-7.7); Basophil% 0.9 % (0-1); Eosinophil# 0.18 X10^3/uL; Eosinophils% 1.7 % (0-5); Hematocrit 45.5 % (37-47); Hemoglobin 14.7 g/dL (12.0-15.0); Lymphocyte # 2.94 X10^3/ul (0.83-4.51); Lymphocyte % 27.5 % (19-41); Mean Corp Hgb Conc 32.3 g/dL (32-36); Mean Corpuscular Hgb 27.6 pg (27.0-32.0); Mean Corpuscular Volume 85.5 fL (81-99); Mean Platelet Vol. 11.5 fl (6.2-12.0); Monocyte# 0.47 X10^3/uL; Monocyte% 4.4 % (0-10); NRBC Flagged by Analyzer 0 % (0-5); Neutrophil # 6.92 X10^3/uL (2.7-7.7); Neutrophil % 64.8 % (47-70); Platelet Count 272 K/mm3 (150-450); RBC Distribution Width CV 13.6 % (11.6-14.6); RBC Distribution Width SD 42.5 fl (35.1-43.9); Red Blood Count 5.32 M/mm3 (4.2-5.4); White Blood Count 10.7 K/mm3 (4.4-11.0)
[2021-06-29 12:54] LABS: ALB/GLOB Ratio 0.7 RATIO (0.9-2.4); AST(SGOT) 13 U/L (15-37); Alanine Aminotransfer ALT/SGPT 21 U/L (13-56); Albumin, Serum 2.7 g/dL (3.2-5.0); Alkaline Phosphatase 194 U/L (45-117); Anion Gap 6 (5-15); BUN 16 mg/dL (7-18); Calcium,Total 9.3 mg/dL (8.5-10.1); Chloride 99 mmol/L (98-107); Creatinine, Serum 1.14 mg/dL (0.55-1.02); EST Glomerular Filtration Rate 51 mL/min (>60); Est Glom Filt Rate - Afr Amer 61 mL/min (>60); Globulin 3.9 g/dL (2.2-4.2); Glucose 570 mg/dL (74-106); Potassium 3.6 mmol/L (3.5-5.1); Protein, Total 6.6 g/dL (6.4-8.2); Sodium Level 134 mmol/L (136-145)
== END ==
LOC: BIMLAB 11:21
PROVIDERS: PCP Internal Medicine; Referring Provider Internal Medicine; Visit Provider Internal Medicine
DX: I10 Essential (primary) hypertension (principal); E11.9 Type 2 diabetes mellitus without complications
CPT/HCPCS: 36415; 80053; 85025

== ENCOUNTER 2021-06-29 17:03 | Emergency (ER) | payer BC, SELFPAY ==
[2021-06-29 17:06] VITALS: BP 142/85; PULSE 90; RESP 18; TEMP 36.4; O2SAT 96; BMI 23.4
[2021-06-29 17:16] LABS: Bedside Glucose 421 mg/dL (70-110)
--- NOTE | 2021-06-29 19:34 | EX.ED.DYSGE1 ---
HPI History of Present Illness Chief Complaint: Hyperglycemia Detail of Chief Complaint: Blood sugar greater than 600 at primary care physician's office Informant: patient and spouse/S.O. Onset/Context/Timing Onset: Days Quality: Hyperglycemia due to noncompliance, A1c greater than 11 Current Severity: Moderate Maximum Severity: Moderate Worsened by: Nothing Relieved by: Nothing Associated Symptoms Associated Symptoms: None Narrative Narrative: Patient is a 66-year-old woman who is noncompliant with medical therapy who presents because of blood sugar greater than 600. She does report polyuria, polydipsia and nocturia. She has intermittent blurred vision. She also complains of thirst and dry mouth. She has no other complaints. Prior similar symptoms: Yes Recent Illness/Hospitalization: No PFSH PFSH Medical History Arthritis Asthma Breast cancer Carpal tunnel syndrome Diabetes Flu vaccine need Hearing problem High blood pressure Hypertension Noncompliance Right hip pain Thyroid disease Vision problems Home Medications alendronate 70 mg PO QWEEK 03/21/20 [History Last Taken Unknown] anastrozole 1 mg PO DAILY 03/21/20 [History Last Taken Unknown] hydrochlorothiazide 25 mg PO DAILY 03/21/20 [History Last Taken Unknown] rivaroxaban 10 mg PO DAILY@1700 03/21/20 [History Last Taken Unknown] cholecalciferol (vitamin D3) 2,000 unit PO DAILY 03/23/20 [History Last Taken Unknown] atorvastatin 80 mg PO QHS #30 tab 04/05/20 [Rx Last Taken Unknown] clopidogrel 75 mg PO DAILY #30 tab 04/05/20 [Rx Last Taken Unknown] mirtazapine 7.5 mg PO QHS #30 tab 04/05/20 [Rx Last Taken Unknown] magnesium oxide 400 mg (241.3 mg magnesium) tablet 400 mg PO BIDCM #180 tab 05/02/20 [Rx Last Taken Unknown] amlodipine 10 mg tablet 10 mg PO DAILY #90 tab 06/13/20 [Rx Last Taken Unknown] potassium chloride 20 mEq tablet,extended release(part/cryst) 40 meq PO DAILYCM #90 tab 06/30/20 [Rx Last Taken Unknown] enalapril maleate 10 mg tablet 10 mg PO BID #180 tab 07/07/20 [Rx Last Taken Unknown] calcium carbonate 600 mg calcium (1,500 mg) tablet 600 mg PO BID #180 tab 08/16/20 [Rx Last Taken Unknown] metformin 500 mg tablet 500 mg PO BIDCM #60 tab 09/06/20 [Rx Last Taken Unknown] compress.stocking,knee,reg,lrg #2 ea 09/11/20 [Rx Last Taken Unknown] levothyroxine 100 mcg tablet 100 mcg PO DAILY@0600 #60 tab 09/13/20 [Rx Last Taken Unknown] hydrocodone-acetaminophen 5-325mg 5mg-325mg 1 tab PO tab 12/06/20 [History Last Taken Unknown] naproxen sodium 220 mg capsule 220 mg PO BID PRN 12/06/20 [History Last Taken Unknown] insulin aspart U-100 100 unit/mL (3 mL) subcutaneous pen 7 unit SC TID 90 Days #18.9 ml 12/18/20 [Rx Last Taken Unknown] nicotine 14 mg/24 hr daily transdermal patch 1 patch TD Q24H #28 each 01/12/21 [Rx Last Taken Unknown] nicotine 21 mg/24 hr daily transdermal patch 1 patch TD Q24H #28 each 01/12/21 [Rx Last Taken Unknown] baclofen 5 mg tablet 5 mg PO BID PRN #20 tab 02/01/21 [Rx Last Taken Unknown] carvedilol 12.5 mg tablet 12.5 mg PO Q12H #60 tab 02/07/21 [Rx Last Taken Unknown] insulin glargine 100 unit/mL (3 mL) subcutaneous pen 25 unit SUBCUT QPM #15 ml 02/09/21 [Rx Last Taken Unknown] doxazosin 2 mg tablet 2 mg PO DAILY #30 tab 03/09/21 [Rx Last Taken Unknown] dulaglutide 1.5 mg/0.5 mL subcutaneous pen injector 1.5 mg SUBCUT QWEEK #2 ml 04/30/21 [Rx Last Taken Unknown] Allergy/AdvReac Type Severity Reaction Status Date / Time aspirin Allergy Unknown Nausea Verified 06/29/21 17:08 albuterol AdvReac I GET VERY Verified 06/29/21 17:08 SHAKEY/HYPERVENTILATING Penicillins AdvReac Nausea/Vom/ Verified 06/29/21 17:08 Diarrhea Family History Father Cancer bone cancer Brother Heart disease Surgical History History of appendectomy Social History (Updated 06/29/21 @ 19:[address] Christian Jones MD) household members: significant other Smoking Status: Current every day smoker tobacco type: cigarettes Tobacco: How many years used: 50 alcohol intake: never substance use type: marijuana and other details: smokes 4 joints a day ROS ROS ED Constitutional Constitutional ED: Denies chills, fever(s), subjective or sweats Eyes Eyes: Reports blurry vision bilateral; Denies change in vision or diplopia ENT ENT ED: Denies ear pain, rhinorrhea or sore throat Cardiovascular Cardiovascular: Denies chest pain, orthopnea, palpitations, paroxysmal nocturnal dyspnea or racing heartbeat Respiratory/Chest Respiratory/Chest: Reports cough and dyspnea; Denies dyspnea on exertion, orthopnea, paroxysmal nocturnal dyspnea or sputum Gastrointestinal Gastrointestinal: Denies abdominal pain, constipation, diarrhea, nausea or vomiting Genitourinary Genitourinary ED: Reports urinary frequency; Denies dysuria or hematuria Musculoskeletal Musculoskeletal: Denies arthralgias, back pain, myalgias or neck pain Integumentary Denies rash Neurologic Neurologic: Reports weakness; Denies headache(s) or paresthesias Endocrine Endocrinology: Reports polydipsia and polyuria Allergic/Immunologic Allergic/Immunologic ED: Denies urticaria EXAM Physical Exam Const Vital Signs: 06/29/21 17:06 Temperature 97.6 F L Temperature Source Temporal Pulse Rate 90 Respiratory Rate 18 Blood Pressure 142/85 H Blood Pressure Mean 104 Pulse Ox 96 Oxygen Delivery Method Room Air Positive well nourished, well developed and unkempt General Appearance ED: unkempt, well developed and NAD HEENT Reports dry mucous membranes HEENT Narrative: Head is atraumatic normocephalic. Ears are normal. Nares patent. Posterior pharynx no erythema or exudate. Mouth ED: Yes dry mucous membranes Mouth: dry mucous membranes Eyes PERRL and EOMs intact bilaterally General Eye ED: Negative for pale conjunctiva or scleral icterus Neck no lymphadenopathy, supple and no JVD Chest Wall inspection of chest normal and palpation of chest normal Resp normal respiratory effort and clear to auscultation bilaterally Cardio regular rate, regular rhythm, S1 normal heart sound, S2 normal heart sound and no murmurs GI normal to inspection, nondistended, normoactive bowel sounds, non-tender and non-distended Palpation: soft Back/Spine no CVA tenderness Cervical Spine: Negative for cervical spine tenderness Thoracic Spine / Upper Back: Negative for thoracic spinal tenderness or paraspinal muscle tenderness Extremity normal to inspection General Extremety ED: Negative for edema or tenderness General Extremity: Negative for edema Neuro oriented x3, CN's II-XII intact bilaterally and no sensory deficits noted Sensorium / Orientation: alert Motor Exam: strength 5/5 throughout Psych mental status grossly normal Appearance: unkempt Skin no rashes or lesions noted and no wounds MDM MDM MDM Narrative Medical decision making narrative: IV was established. Blood work was obtained to assess anion gap, renal function and electrolytes. CBC to assess white count and rule out anemia. Urine to assess for ketones and determine if she has a urinary tract infection. Lab Data Attestation: I reviewed the patient's lab results. Lab results narrative: Hyperglycemia with normal CO2 and anion gap. Patient was treated with IV fluids and insulin. She was discharged to home. Patient is poorly compliant. Her last A1c was greater than 11. Labs: Laboratory Results - last 24 hr 06/29/21 06/29/21 06/29/21 17:05 19:50 19:50 WBC 12.8 H RBC 5.43 H Hgb 14.7 Hct 45.5 MCV 83.8 MCH 27.1 MCHC 32.3 RDW Std Deviation 41.6 RDW Coeff of Cahd 13.7 Plt Count 283 MPV 11.1 Immature Gran % (Auto) 0.500 Neut % (Auto) 64.5 Lymph % (Auto) 28.2 [place] % (Auto) 4.9 Eos % (Auto) 1.4 Baso % (Auto) 0.5 Absolute Neuts (auto) 8.2 H Absolute Lymphs (auto) 3.60 Nucleated RBC % 0 Sodium 133 L Potassium 3.3 L Chloride 99 Carbon Dioxide 28.0 Anion Gap 6 BUN 15 Creatinine 1.03 H Estim Creat Clear Calc 38.07 Est GFR (MDRD) Af Amer 69 Est GFR (MDRD) Non-Af 57 L BUN/Creatinine Ratio 14.6 Glucose 376 H Calcium 9.3 POC Glucose 421 H Discharge Plan Triage Chief Complaint: Hyperglycemia ED Provider: Christian Jones Dx/Rx/DC Orders Clinical Impression: Diabetes mellitus due to underlying condition, uncontrolled, with hyperglycemia Instructions: ED Diabetic Hyperglycemia Prescriptions: No Action amlodipine 10 mg tablet 10 mg PO DAILY Qty: 90 RF: 3 (DME) compress.stocking,knee,reg,lrg Misc See Rx Instructions .MEDSUPPLY Qty: 2 RF: 1 insulin aspart U-100 [Novolog Flexpen U-100 Insulin] 100 unit/mL (3 mL) insulin pen 7 unit SC TID 90 Days Qty: 18.9 RF: 3 Hold Instructions: Order Changed naproxen sodium [Aleve] 220 mg capsule 220 mg PO BID PRNRF: 0 hydrocodone-acetaminophen 5-325 mg tablet 1 tab PO RF: 0 carvedilol 12.5 mg tablet 12.5 mg PO Q12H Qty: 60 RF: 2 nicotine 21 mg/24 hr patch 24 hour 1 patch TD Q24H Qty: 28 RF: 0 nicotine 14 mg/24 hr patch 24 hour 1 patch TD Q24H Qty: 28 RF: 1 doxazosin 2 mg tablet 2 mg PO DAILY Qty: 30 RF: 1 hydrochlorothiazide 25 MG tablet 25 mg PO DAILY RF: 0 anastrozole 1 MG tablet 1 mg PO DAILY RF: 0 alendronate 70 MG tablet 70 mg PO QWEEK RF: 0 rivaroxaban 10 MG tablet 10 mg PO DAILY@1700 RF: 0 cholecalciferol (vitamin D3) 1,000 UNIT tablet 2,000 unit PO DAILY RF: 0 mirtazapine 15 MG tablet 7.5 mg PO QHS Qty: 30 RF: 0 atorvastatin 80 MG tablet 80 mg PO QHS Qty: 30 RF: 0 clopidogrel 75 MG tablet 75 mg PO DAILY Qty: 30 RF: 0 magnesium oxide 400 mg (241.3 mg magnesium) tablet 400 mg PO BIDCM Qty: 180 RF: 3 potassium chloride 20 mEq tablet,ER particles/crystals 40 meq PO DAILYCM Qty: 90 RF: 2 enalapril maleate 10 mg tablet 10 mg PO BID Qty: 180 RF: 2 calcium carbonate 600 mg calcium (1,500 mg) tablet 600 mg PO BID Qty: 180 RF: 1 metformin 500 mg tablet 500 mg PO BIDCM Qty: 60 RF: 1 levothyroxine 100 mcg tablet 100 mcg PO DAILY@0600 Qty: 60 RF: 3 baclofen 5 mg tablet 5 mg PO BID PRN (Reason: muscle pain) Qty: 20 RF: 0 Lantus Solostar U-100 Insulin 100 unit/mL (3 mL) insulin pen 25 unit subcut QPM Qty: 15 RF: 3 Hold Instructions: Order Changed Trulicity 1.5 mg/0.5 mL pen injector 1.5 mg subcut QWEEK Qty: 2 RF: 0 Primary Care Provider: Tera Butts Referrals: Tera Butts MD [Primary Care Provider] - 3-5 Days Activity Restrictions/Additional Instructions: 1. You need to take your medicine as instructed. 2. You need to be compliant with your diet. 3. Your A1c is very elevated. This puts you at risk for stroke, heart attack, kidney failure and loss of toes and limbs Disposition Disposition: Home, Self Care
[2021-06-29] MEDS: 0.9% Normal Saline 1,000 ML 1000 ML IV (19:48)
[2021-06-29 20:02] LABS: Absolute Neutrophil Count 8.2 X10^3/uL (2.0-7.7); Basophil# 0.07 X10^3/uL; Basophil% 0.5 % (0-1); Eosinophil# 0.18 X10^3/uL; Eosinophils% 1.4 % (0-5); Hematocrit 45.5 % (37-47); Hemoglobin 14.7 g/dL (12.0-15.0); Lymphocyte % 28.2 % (19-41); Mean Corp Hgb Conc 32.3 g/dL (32-36); Mean Corpuscular Hgb 27.1 pg (27.0-32.0); Mean Corpuscular Volume 83.8 fL (81-99); Mean Platelet Vol. 11.1 fl (6.2-12.0); Monocyte# 0.63 X10^3/uL; Monocyte% 4.9 % (0-10); NRBC Flagged by Analyzer 0 % (0-5); Neutrophil # 8.22 X10^3/uL (2.7-7.7); Neutrophil % 64.5 % (47-70); Platelet Count 283 K/mm3 (150-450); RBC Distribution Width CV 13.7 % (11.6-14.6); RBC Distribution Width SD 41.6 fl (35.1-43.9); Red Blood Count 5.43 M/mm3 (4.2-5.4); White Blood Count 12.8 K/mm3 (4.4-11.0)
[2021-06-29 20:16] LABS: Anion Gap 6 (5-15); BUN 15 mg/dL (7-18); BUN/Creat Ratio 14.6 RATIO (10-20); Calcium,Total 9.3 mg/dL (8.5-10.1); Chloride 99 mmol/L (98-107); Creatinine, Serum 1.03 mg/dL (0.55-1.02); EST Glomerular Filtration Rate 57 mL/min (>60); Est Glom Filt Rate - Afr Amer 69 mL/min (>60); Estimated Creatinine Clearance 38.07 ml/min; Glucose 376 mg/dL (74-106); Potassium 3.3 mmol/L (3.5-5.1); Sodium Level 133 mmol/L (136-145)
[2021-06-29] MEDS: Insulin Lispro 100 UNIT/ML INSULN.PEN 6 UNIT SC (21:44)
== END 2021-06-29 21:47 | disposition home or self-care (01) ==
PROVIDERS: Emergency Provider Emergency Medicine; PCP Internal Medicine
DX: E11.65 Type 2 diabetes mellitus with hyperglycemia (principal); F17.210 Nicotine dependence, cigarettes, uncomplicated; I10 Essential (primary) hypertension; J45.909 Unspecified asthma, uncomplicated; M19.90 Unspecified osteoarthritis, unspecified site; Z79.01 Long term (current) use of anticoagulants; Z79.4 Long term (current) use of insulin; Z79.899 Other long term (current) drug therapy; Z91.14 Patient's other noncompliance with medication regimen
CPT/HCPCS: 80048; 82962; 85025; 96360; 99284; J7030; A4216

== ENCOUNTER → 2021-07-12 12:56 | Outpatient (CLI) | payer BC, SELFPAY | PROVIDERS: PCP Internal Medicine; Referring Provider Nurse Practitioner Adult Health; Visit Provider Nurse Practitioner Adult Health | DX: N39.0 Urinary tract infection, site not specified (principal) | CPT/HCPCS: 87077; 87086; 87088; 87186 ==

== ENCOUNTER 2021-08-06 16:50 | Emergency (ER) | payer BC, SELFPAY ==
[2021-08-06 16:52] VITALS: BP 172/104; PULSE 89; RESP 14; TEMP 36.1; O2SAT 96; BMI 22.8
--- NOTE | 2021-08-06 18:58 | RAD_ITS ---
STUDY: X-RAY CHEST REASON FOR EXAM: Female, 66 years old. History of COPD, cough, wheezing and pain TECHNIQUE: PA and lateral COMPARISON: 07/16/2020 FINDINGS: The lungs are clear and expanded. There is no demonstrated pleural abnormality. There are surgical clips in the left lateral chest wall status post mastectomy Normal size heart. Normal mediastinum and jason. Normal visualized pulmonary arteries. Normal visualized aortic arch and descending thoracic aorta. Normal visualized thoracic spine. Normal visualized ribs, clavicles, and shoulders. There is no demonstrated abnormality of the visualized soft tissue structures of the upper abdomen. No significant change since prior exam RAD/Chest PA and Lateral IMPRESSION: No acute disease status post left mastectomy Electronically Signed: Azam Hernadez MD at 20:39 EDT , Service support ,
--- NOTE | 2021-08-06 19:21 | EX.ED.DYSGE1 ---
HPI History of Present Illness Chief Complaint: Other, Pain/Inj Informant: patient and spouse/S.O. Onset/Context/Timing Onset: Days Context: Sudden Onset Timing: Intermittent Quality: Pain Location: Right breast Current Severity: Mild Maximum Severity: Severe Worsened by: Palpation Relieved by: Nothing Associated Symptoms Associated Symptoms: Patient does have a cough and wheezing Narrative Narrative: Patient presents because of right breast pain. She is concerned because she is status post mastectomy. She had a mastectomy 2 years ago. She denies fever or chills. She does report weight loss. states has not been eating well. She denies rhinorrhea, congestion, postnasal drainage or sore throat. Denies loss of taste or smell. She denies ear pain, ringing in ears or decreased hearing. Denies drainage from her ears. Denies neck pain or neck stiffness. She does have a cough. The cough is nonproductive. She does admit to dyspnea on exertion. She denies orthopnea or PND. She denies pleuritic chest pain. She does have remote history of DVT. She denies leg pain, swelling discoloration. She denies GI or symptoms. Prior similar symptoms: Yes (Breast cancer) Recent Illness/Hospitalization: No PFSH PFSH Medical History Arthritis Asthma Breast cancer Carpal tunnel syndrome Diabetes Flu vaccine need Hearing problem High blood pressure Hypertension Noncompliance Right hip pain Thyroid disease Vision problems Home Medications alendronate 70 mg PO QWEEK 03/21/20 [History Last Taken Unknown] hydrochlorothiazide 25 mg PO DAILY 03/21/20 [History Last Taken Unknown] cholecalciferol (vitamin D3) 2,000 unit PO DAILY 03/23/20 [History Last Taken Unknown] atorvastatin 80 mg PO QHS #30 tab 04/05/20 [Rx Last Taken Unknown] clopidogrel 75 mg PO DAILY #30 tab 04/05/20 [Rx Last Taken Unknown] mirtazapine 7.5 mg PO QHS #30 tab 04/05/20 [Rx Last Taken Unknown] magnesium oxide 400 mg (241.3 mg magnesium) tablet 400 mg PO BIDCM #180 tab 05/02/20 [Rx Last Taken Unknown] amlodipine 10 mg tablet 10 mg PO DAILY #90 tab 06/13/20 [Rx Last Taken Unknown] potassium chloride 20 mEq tablet,extended release(part/cryst) 40 meq PO DAILYCM #90 tab 06/30/20 [Rx Last Taken Unknown] enalapril maleate 10 mg tablet 10 mg PO BID #180 tab 07/07/20 [Rx Last Taken Unknown] calcium carbonate 600 mg calcium (1,500 mg) tablet 600 mg PO BID #180 tab 08/16/20 [Rx Last Taken Unknown] metformin 500 mg tablet 500 mg PO BIDCM #60 tab 09/06/20 [Rx Last Taken Unknown] compress.stocking,knee,reg,lrg #2 ea 09/11/20 [Rx Last Taken Unknown] hydrocodone-acetaminophen 5-325mg 5mg-325mg 1 tab PO tab 12/06/20 [History Last Taken Unknown] naproxen sodium 220 mg capsule 220 mg PO BID PRN 12/06/20 [History Last Taken Unknown] insulin aspart U-100 100 unit/mL (3 mL) subcutaneous pen 7 unit SC TID 90 Days #18.9 ml 12/18/20 [Rx Last Taken Unknown] carvedilol 12.5 mg tablet 12.5 mg PO Q12H #60 tab 02/07/21 [Rx Last Taken Unknown] doxazosin 2 mg tablet 2 mg PO DAILY #30 tab 03/09/21 [Rx Last Taken Unknown] baclofen 5 mg tablet 5 mg PO BID PRN #20 tab 07/02/21 [Rx Last Taken Unknown] levothyroxine 100 mcg tablet 100 mcg PO DAILY@0600 #60 tab 07/03/21 [Rx Last Taken Unknown] anastrozole 1 mg tablet 1 mg PO DAILY #90 tab 07/04/21 [Rx Last Taken Unknown] dulaglutide 3 mg/0.5 mL subcutaneous pen injector 3 mg SUBCUT QWEEK #2 ml 07/04/21 [Rx Last Taken Unknown] insulin glargine 100 unit/mL (3 mL) subcutaneous pen 25 unit SUBCUT QPM #15 ml 07/04/21 [Rx Last Taken Unknown] ciprofloxacin HCl 500 mg tablet 500 mg PO Q12H #14 tab 07/12/21 [Rx Last Taken Unknown] albuterol sulfate [Ventolin HFA] 2 puff INHALATION Q4H PRN PRN #1 inhaler 08/06/21 [Rx Last Taken Unknown] doxycycline monohydrate 100 mg PO BID #10 capsule 08/06/21 [Rx Last Taken Unknown] prednisone 60 mg PO DAILY #15 tablet 08/06/21 [Rx Last Taken Unknown] Allergy/AdvReac Type Severity Reaction Status Date / Time aspirin Allergy Unknown Nausea Verified 08/06/21 16:52 albuterol AdvReac I GET VERY Verified 08/06/21 16:52 SHAKEY/HYPERVENTILATING Penicillins AdvReac Nausea/Vom/ Verified 08/06/21 16:52 Diarrhea Family History Father Cancer bone cancer Brother Heart disease Surgical History History of appendectomy Social History household members: significant other Smoking Status: Current every day smoker tobacco type: cigarettes Tobacco: How many years used: 50 alcohol intake: never substance use type: marijuana and other details: smokes 4 joints a day ROS ROS ED Constitutional Constitutional ED: Reports weight loss; Denies chills, fever(s), subjective or sweats Eyes Eyes: Denies blurry vision, change in vision or diplopia ENT ENT ED: Denies ear pain, rhinorrhea or sore throat Cardiovascular Cardiovascular: Reports chest pain and other Details: Right anterior breast pain ; Denies orthopnea, palpitations, paroxysmal nocturnal dyspnea or racing heartbeat Respiratory/Chest Respiratory/Chest: Reports cough, dyspnea and dyspnea on exertion; Denies orthopnea, paroxysmal nocturnal dyspnea or sputum Gastrointestinal Gastrointestinal: Denies abdominal pain, diarrhea, nausea or vomiting Genitourinary Genitourinary ED: Denies dysuria, hematuria or urinary frequency Musculoskeletal Musculoskeletal: Denies arthralgias, myalgias or neck pain Integumentary Denies rash Neurologic Neurologic: Reports weakness; Denies headache(s) or paresthesias Endocrine Endocrinology: Denies polydipsia, polyphagia or polyuria Allergic/Immunologic Allergic/Immunologic ED: Denies mouth swelling or urticaria EXAM Physical Exam Const Vital Signs: 08/06/21 16:52 08/06/21 20:00 08/06/21 22:00 Temperature 97 F L Temperature Source Temporal Pulse Rate 89 82 81 Respiratory Rate 14 18 16 Blood Pressure 172/104 H 209/128 H 170/86 H Blood Pressure Mean 126 155 114 Pulse Ox 96 95 97 Oxygen Delivery Method Room Air Positive well nourished, well developed and unkempt General Appearance ED: unkempt, well developed and NAD; Negative for cyanotic, diaphoretic or pallor HEENT HEENT Narrative: Head is atraumatic and normocephalic. Ears normal. Nares patent. Posterior pharynx out erythema or exudate. Eyes PERRL and EOMs intact bilaterally General Eye ED: Negative for pale conjunctiva or scleral icterus Neck no lymphadenopathy, supple and no JVD Chest Wall inspection of chest normal and palpation of chest normal Chest Narrative: Breast exam with avionics safety inspector reveals no erythema, dimpling, induration, palpable mass, axillary lymphadenopathy. There is no discharge from the nipple. Resp normal respiratory effort and No clear to auscultation bilaterally Effort and Inspection: Negative for pain with movement Auscultation: wheezes Cardio regular rate, regular rhythm, S1 normal heart sound, S2 normal heart sound and no murmurs GI normal to inspection, nondistended, normoactive bowel sounds, non-tender and non-distended Palpation: soft Back/Spine no CVA tenderness Thoracic Spine / Upper Back: Negative for thoracic spinal tenderness Lumbar Spine / Lower Back: Negative for lumbar spinal tenderness Extremity normal to inspection General Extremety ED: Negative for edema or tenderness General Extremity: Negative for edema Neuro CN's II-XII intact bilaterally and no sensory deficits noted Sensorium / Orientation: alert Motor Exam: strength 5/5 throughout Psych mental status grossly normal Appearance: unkempt Skin no rashes or lesions noted and no wounds General Skin Exam: Negative for jaundice or pallor MDM MDM MDM Narrative Medical decision making narrative: With cough, wheezing history of COPD concern patient has aggressively COPD versus pneumonia versus viral infection with chest wall pain. There is no evidence of any abnormality on breast exam. Patient refused aerosol treatments that were ordered. Patient was informed of her laboratory results. Patient needs a prescription for inhaler. She was also treated with antibiotic and prednisone. Lab Data Attestation: I reviewed the patient's lab results. Lab results narrative: White count is slightly elevated with no shift. Sodium is 131 chloride 97. Creatinine slightly 1.23. Blood sugar is elevated at 410 and the low sodium probably represents pseudohyponatremia. Labs: Laboratory Results - last 24 hr 08/06/21 08/06/21 19:25 19:25 WBC 13.1 H RBC 5.86 H Hgb 16.1 H Hct 48.4 H MCV 82.6 MCH 27.5 MCHC 33.3 RDW Std Deviation 42.9 RDW Coeff of Chad 14.5 Plt Count 334 MPV 10.9 Immature Gran % (Auto) 0.800 Neut % (Auto) 70.0 Lymph % (Auto) 22.9 [place] % (Auto) 4.3 Eos % (Auto) 1.2 Baso % (Auto) 0.8 Absolute Neuts (auto) 9.2 H Absolute Lymphs (auto) 3.01 Nucleated RBC % 0 Sodium 131 L Potassium 3.6 Chloride 97 L Carbon Dioxide 27.0 Anion Gap 7 BUN 23 H Creatinine 1.23 H Estim Creat Clear Calc 31.88 Est GFR (MDRD) Af Amer 56 L Est GFR (MDRD) Non-Af 46 L BUN/Creatinine Ratio 18.7 Glucose 410 H Calcium 9.2 Radiography Chest X-Ray - ED: 2 View, Read by ED Physician, Unchanged, Heart, Lungs, Mediastinum, Bony Structures, No Acute Disease and Chronic Changes Diagnostic Testing: Clinical Impression(s) from Imaging Studies Chest X-Ray 08/06/21 18:58 IMPRESSION: No acute disease status post left mastectomy Electronically Signed: Azam Hernadez MD at 20:39 EDT , Service support , Discharge Plan Triage Chief Complaint: Other, Pain/Inj ED Provider: Christian Jones Dx/Rx/DC Orders Clinical Impression: Acute exacerbation of chronic obstructive pulmonary disease, Acute chest wall pain Instructions: Chronic Lung Disease ... Prescriptions: New prednisone 20 MG tablet 60 mg PO DAILY Qty: 15 RF: 0 doxycycline monohydrate 100 MG capsule 100 mg PO BID Qty: 10 RF: 0 albuterol sulfate [Ventolin HFA] 1 INHALER inhaler 2 puff inhalation Q4H PRN PRN (Reason: Wheezing) Qty: 1 RF: 0 No Action amlodipine 10 mg tablet 10 mg PO DAILY Qty: 90 RF: 3 (DME) compress.stocking,knee,reg,lrg Misc See Rx Instructions .MEDSUPPLY Qty: 2 RF: 1 insulin aspart U-100 [Novolog Flexpen U-100 Insulin] 100 unit/mL (3 mL) insulin pen 7 unit SC TID 90 Days Qty: 18.9 RF: 3 Hold Instructions: Order Changed naproxen sodium [Aleve] 220 mg capsule 220 mg PO BID PRNRF: 0 hydrocodone-acetaminophen 5-325 mg tablet 1 tab PO RF: 0 carvedilol 12.5 mg tablet 12.5 mg PO Q12H Qty: 60 RF: 2 doxazosin 2 mg tablet 2 mg PO DAILY Qty: 30 RF: 1 anastrozole 1 mg tablet 1 mg PO DAILY Qty: 90 RF: 0 Trulicity 3 mg/0.5 mL pen injector 3 mg subcut QWEEK Qty: 2 RF: 0 Lantus Solostar U-100 Insulin 100 unit/mL (3 mL) insulin pen 25 unit subcut QPM Qty: 15 RF: 3 Hold Instructions: Order Changed ciprofloxacin HCl 500 mg tablet 500 mg PO Q12H Qty: 14 RF: 0 hydrochlorothiazide 25 MG tablet 25 mg PO DAILY RF: 0 alendronate 70 MG tablet 70 mg PO QWEEK RF: 0 cholecalciferol (vitamin D3) 1,000 UNIT tablet 2,000 unit PO DAILY RF: 0 mirtazapine 15 MG tablet 7.5 mg PO QHS Qty: 30 RF: 0 atorvastatin 80 MG tablet 80 mg PO QHS Qty: 30 RF: 0 clopidogrel 75 MG tablet 75 mg PO DAILY Qty: 30 RF: 0 magnesium oxide 400 mg (241.3 mg magnesium) tablet 400 mg PO BIDCM Qty: 180 RF: 3 potassium chloride 20 mEq tablet,ER particles/crystals 40 meq PO DAILYCM Qty: 90 RF: 2 enalapril maleate 10 mg tablet 10 mg PO BID Qty: 180 RF: 2 calcium carbonate 600 mg calcium (1,500 mg) tablet 600 mg PO BID Qty: 180 RF: 1 metformin 500 mg tablet 500 mg PO BIDCM Qty: 60 RF: 1 baclofen 5 mg tablet 5 mg PO BID PRN (Reason: muscle pain) Qty: 20 RF: 0 levothyroxine 100 mcg tablet 100 mcg PO DAILY@0600 Qty: 60 RF: 3 Primary Care Provider: Tera Butts Referrals: Tera Butts MD [Primary Care Provider] - 3-5 Days if not improving Disposition Disposition: Home, Self Care
--- NOTE | 2021-08-06 19:24 | CPS ---
pt refused aero tx-states makes her hyper-tried to tell her it would help
[2021-08-06 19:43] LABS: Absolute Lymphocyte Count 3.01 X10^3/uL (0.83-4.51); Absolute Neutrophil Count 9.2 X10^3/uL (2.0-7.7); Basophil% 0.8 % (0-1); Eosinophil# 0.16 X10^3/uL; Eosinophils% 1.2 % (0-5); Hematocrit 48.4 % (37-47); Hemoglobin 16.1 g/dL (12.0-15.0); Lymphocyte # 3.01 X10^3/ul (0.83-4.51); Lymphocyte % 22.9 % (19-41); Mean Corp Hgb Conc 33.3 g/dL (32-36); Mean Corpuscular Hgb 27.5 pg (27.0-32.0); Mean Corpuscular Volume 82.6 fL (81-99); Mean Platelet Vol. 10.9 fl (6.2-12.0); Monocyte# 0.56 X10^3/uL; Monocyte% 4.3 % (0-10); NRBC Flagged by Analyzer 0 % (0-5); Neutrophil # 9.18 X10^3/uL (2.7-7.7); Platelet Count 334 K/mm3 (150-450); RBC Distribution Width CV 14.5 % (11.6-14.6); RBC Distribution Width SD 42.9 fl (35.1-43.9); Red Blood Count 5.86 M/mm3 (4.2-5.4); White Blood Count 13.1 K/mm3 (4.4-11.0)
[2021-08-06] MEDS: predniSONE 20 MG Tablet 60 MG PO (19:47)
[2021-08-06 20:00] VITALS: BP 209/128; PULSE 82; RESP 18; O2SAT 95
[2021-08-06 20:03] LABS: Anion Gap 7 (5-15); BUN 23 mg/dL (7-18); BUN/Creat Ratio 18.7 RATIO (10-20); Calcium,Total 9.2 mg/dL (8.5-10.1); Chloride 97 mmol/L (98-107); Creatinine, Serum 1.23 mg/dL (0.55-1.02); EST Glomerular Filtration Rate 46 mL/min (>60); Est Glom Filt Rate - Afr Amer 56 mL/min (>60); Estimated Creatinine Clearance 31.88 ml/min; Glucose 410 mg/dL (74-106); Potassium 3.6 mmol/L (3.5-5.1); Sodium Level 131 mmol/L (136-145)
[2021-08-06 22:00] VITALS: BP 170/86; PULSE 81; RESP 16; O2SAT 97
== END 2021-08-06 22:14 | disposition home or self-care (01) ==
PROVIDERS: Emergency Provider Emergency Medicine; PCP Internal Medicine
DX: J44.1 Chronic obstructive pulmonary disease with (acute) exacerbation (principal); R07.89 Other chest pain; F17.210 Nicotine dependence, cigarettes, uncomplicated; F12.90 Cannabis use, unspecified, uncomplicated; R63.4 Abnormal weight loss; Z86.718 Personal history of other venous thrombosis and embolism; E11.9 Type 2 diabetes mellitus without complications; I10 Essential (primary) hypertension; M19.90 Unspecified osteoarthritis, unspecified site; Z79.4 Long term (current) use of insulin; Z79.52 Long term (current) use of systemic steroids; Z91.19 Patient's noncompliance with other medical treatment and regimen; Z90.10 Acquired absence of unspecified breast and nipple
CPT/HCPCS: 71046; 80048; 85025; 94640; 99285; J7030

== ENCOUNTER 2021-10-03 08:15 | Inpatient (IN) | payer BC, SELFPAY ==
[2021-10-03] VITALS (15 sets, daily range): BP systolic 128–208; BP diastolic 83–130; PULSE 88–115; RESP 16–18; TEMP 36.3–36.9; O2SAT 89–97; BMI 19.4; BMI 26.6
[2021-10-03 08:30] LABS: Bedside Glucose > 500 mg/dL (70-110)
--- NOTE | 2021-10-03 08:33 | CT_ITS ---
STUDY: CT BRAIN WITHOUT CONTRAST REASON FOR EXAM: Female, 66 years old. fall RADIATION DOSAGE (If Supplied By Facility): CTDIvol = ( 44.99 ) mGy, DLP = ( 745.49 ) mGycm TECHNIQUE: Transaxial CT imaging of the brain was performed without administration of intravenous contrast material. Limited by motion artifact. Individualized dose optimization techniques were used for this CT. COMPARISON: 03/21/2020 FINDINGS: Normal soft tissue structures. Normal calvarium. There is mild cerebral atrophy with widening of the extra-axial spaces and ventricular dilatation. There are areas of decreased attenuation within the white matter tracts of the supratentorial brain, consistent with microvascular disease changes. 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 Normal brainstem. Normal cerebellum. There is no intracranial hemorrhage. There are no findings of an acute ischemic infarction. Normal visualized paranasal sinuses. CT/Brain/Head without Contrast IMPRESSION: No acute intracranial hemorrhage or mass effect. Stable chronic changes, as above. Electronically Signed: Jose A Wang MD ([place]) at 9:23 EST , Service support ,
--- NOTE | 2021-10-03 08:33 | RAD_ITS ---
STUDY: X-RAY CHEST REASON FOR EXAM: Female, 66 years old. hypoxia , seizure-like symptoms TECHNIQUE: AP COMPARISON: 08/06/2021 FINDINGS: EKG leads project over the chest. Left mastectomy. The lungs are clear and expanded. There is no demonstrated pleural abnormality. Normal size heart. Normal mediastinum and jason. Normal visualized pulmonary arteries. Normal visualized aortic arch and descending thoracic aorta. Normal visualized thoracic spine. Normal visualized ribs, clavicles, and shoulders. There is no demonstrated abnormality of the visualized soft tissue structures of the upper abdomen. RAD/Chest 1 View (Portable) IMPRESSION: Nonacute portable x-ray examination of the chest. Electronically Signed: Jose A Wang MD ([place]) at 9:34 EST , Service support ,
--- NOTE | 2021-10-03 08:33 | EKG12_ITS ---
Test Reason : GENERAL ILLNESS Blood Pressure : / mmHG Vent. Rate : 114 BPM Atrial Rate : 114 BPM P-R Int : 152 ms QRS Dur : 078 ms QT Int : 324 ms P-R-T Axes : 088 038 245 degrees QTc Int : 446 ms Sinus tachycardia Anteroseptal infarct (cited on or before 16-JUL-2020) ST & T wave abnormality, consider inferolateral ischemia Abnormal ECG Confirmed by ANJUM LEO, DARRON ([id number]), sound editor CARLOS SNELL ([id number]) on 10/09/2021 10:20:33 AM Referred By: OSCAR Confirmed By:DARRON VALERO MD
--- NOTE | 2021-10-03 08:38 | EX.ED.DYSGE1 ---
HPI History of Present Illness Chief Complaint: General Illness Narrative Narrative: 66-year-old female presenting for generalized weakness. Apparently she tried to get out of bed today and slid down onto the floor. Her son states that she was shaking her right arm but she was awake to this whole episode. He was concerned that maybe she had a mini stroke as she has had these before. He states he is pretty sure she did not hit her head. No LOC. She could not get up on her own strength. Blood sugar noted to be over 600 at home. Patient states she has some pain over her sacrum from the fall and she also states she was incontinent of urine after this. She does report that she started feeling unwell yesterday.She is unsure when her last normal blood sugar was. [facility] Medical History Arthritis Asthma Breast cancer Carpal tunnel syndrome Constipation Diabetes Flu vaccine need Hearing problem High blood pressure Hypertension Noncompliance Right hip pain Thyroid disease Vision problems Home Medications alendronate 70 mg PO QWEEK 03/21/20 [History Last Taken Unknown] hydrochlorothiazide 25 mg PO DAILY 03/21/20 [History Last Taken Unknown] cholecalciferol (vitamin D3) 2,000 unit PO DAILY 03/23/20 [History Last Taken Unknown] atorvastatin 80 mg PO QHS #30 tab 04/05/20 [Rx Last Taken Unknown] clopidogrel 75 mg PO DAILY #30 tab 04/05/20 [Rx Last Taken Unknown] mirtazapine 7.5 mg PO QHS #30 tab 04/05/20 [Rx Last Taken Unknown] magnesium oxide 400 mg (241.3 mg magnesium) tablet 400 mg PO BIDCM #180 tab 05/02/20 [Rx Last Taken Unknown] amlodipine 10 mg tablet 10 mg PO DAILY #90 tab 06/13/20 [Rx Last Taken Unknown] potassium chloride 20 mEq tablet,extended release(part/cryst) 40 meq PO DAILYCM #90 tab 06/30/20 [Rx Last Taken Unknown] enalapril maleate 10 mg tablet 10 mg PO BID #180 tab 07/07/20 [Rx Last Taken Unknown] calcium carbonate 600 mg calcium (1,500 mg) tablet 600 mg PO BID #180 tab 08/16/20 [Rx Last Taken Unknown] metformin 500 mg tablet 500 mg PO BIDCM #60 tab 09/06/20 [Rx Last Taken Unknown] compress.stocking,knee,reg,lrg #2 ea 09/11/20 [Rx Last Taken Unknown] hydrocodone-acetaminophen 5-325mg 5mg-325mg 1 tab PO tab 12/06/20 [History Last Taken Unknown] naproxen sodium 220 mg capsule 220 mg PO BID PRN 12/06/20 [History Last Taken Unknown] insulin aspart U-100 100 unit/mL (3 mL) subcutaneous pen 7 unit SC TID 90 Days #18.9 ml 12/18/20 [Rx Last Taken Unknown] carvedilol 12.5 mg tablet 12.5 mg PO Q12H #60 tab 02/07/21 [Rx Last Taken Unknown] doxazosin 2 mg tablet 2 mg PO DAILY #30 tab 03/09/21 [Rx Last Taken Unknown] baclofen 5 mg tablet 5 mg PO BID PRN #20 tab 07/02/21 [Rx Last Taken Unknown] levothyroxine 100 mcg tablet 100 mcg PO DAILY@0600 #60 tab 07/03/21 [Rx Last Taken Unknown] anastrozole 1 mg tablet 1 mg PO DAILY #90 tab 07/04/21 [Rx Last Taken Unknown] dulaglutide 3 mg/0.5 mL subcutaneous pen injector 3 mg SUBCUT QWEEK #2 ml 07/04/21 [Rx Last Taken Unknown] prednisone 60 mg PO DAILY #15 tablet 08/06/21 [Rx Last Taken Unknown] blood sugar diagnostic #50 ea 08/14/21 [Rx Last Taken Unknown] blood-glucose meter #1 ea 08/14/21 [Rx Last Taken Unknown] insulin glargine 100 unit/mL (3 mL) subcutaneous pen 25 unit SUBCUT QPM #15 ml 08/14/21 [Rx Last Taken Unknown] lancets 28 gauge #100 ea 08/14/21 [Rx Last Taken Unknown] polyethylene glycol 3350 17 gram/dose oral powder 17 g PO BID PRN #850 g 08/14/21 [Rx Last Taken Unknown] pen needle, diabetic 29 gauge x 1/2 #100 ea 09/05/21 [Rx Last Taken Unknown] Allergy/AdvReac Type Severity Reaction Status Date / Time aspirin Allergy Unknown Nausea Verified 10/03/21 08:16 albuterol AdvReac I GET VERY Verified 10/03/21 08:16 SHAKEY/HYPERVENTILATING Penicillins AdvReac Nausea/Vom/ Verified 10/03/21 08:16 Diarrhea Family History Father Cancer bone cancer Brother Heart disease Surgical History History of appendectomy Social History household members: significant other Smoking Status: Current every day smoker tobacco type: cigarettes Tobacco: How many years used: 50 alcohol intake: never substance use type: marijuana and other details: smokes 4 joints a day ROS ROS ED Constitutional Constitutional ED: Denies chills or fever(s) Eyes Eyes: Denies blurry vision or diplopia ENT ENT ED: Denies rhinorrhea or sore throat Cardiovascular Cardiovascular: Denies chest pain or palpitations Respiratory/Chest Respiratory/Chest: Denies cough or dyspnea Gastrointestinal Gastrointestinal: Denies abdominal pain, nausea or vomiting Genitourinary Genitourinary ED: Denies dysuria or hematuria Musculoskeletal Musculoskeletal: Reports other Details: Sacral pain Integumentary Reports other Details: Contusion to sacrum Neurologic Neurologic: Denies headache(s) Psychiatric Psychiatric: Denies anxiety or depression EXAM Physical Exam Const Vital Signs: 10/03/21 08:17 10/03/21 08:48 10/03/21 08:50 Temperature 97.5 F L 97.9 F 97.9 F Temperature Source Temporal Temporal Temporal Pulse Rate 115 H 113 H Respiratory Rate 16 16 Respiratory Effort Respiratory Pattern Blood Pressure 172/119 H 173/111 H Blood Pressure Mean 136 131 Pulse Ox 89 89 Oxygen Delivery Method Room Air Room Air Oxygen Flow Rate (L/min) 10/03/21 08:51 10/03/21 10:08 Temperature 97.4 F L Temperature Source Temporal Pulse Rate 115 H Respiratory Rate 18 Respiratory Effort Normal Respiratory Pattern Normal Blood Pressure 208/130 H Blood Pressure Mean 156 Pulse Ox 97 Oxygen Delivery Method Nasal Cannula Oxygen Flow Rate (L/min) 2 Positive obese General Appearance ED: NAD; Negative for pallor Nutritional Appearance: obese HEENT Reports moist mucous membranes Negative for trauma Eyes PERRL and EOMs intact bilaterally Resp normal respiratory effort and clear to auscultation bilaterally Cardio regular rate and regular rhythm GI normal to inspection, nondistended, normoactive bowel sounds Neuro oriented x3 and CN's II-XII intact bilaterally Sensorium / Orientation: alert Psych mental status grossly normal Skin General Skin Exam: Negative for jaundice or pallor MDM MDM MDM Narrative Medical decision making narrative: Patient presenting with hyperglycemia and generalized weakness. Sepsis work-up was obtained due to hypoxia and tachycardia. Patient found to have a slight white blood cell count 11.2. Hemoglobin hematocrit are stable. PT/INR normal. Lactic acid 0.8. Creatinine is elevated at 1.47. Patient was given a liter of normal saline given that she has dehydration and an elevated blood sugar of 739. Patient will be given 20 units of insulin subcutaneously. Patient found to have a urinary tract infection and was started on Cipro as her last UTI was pansensitive but she has allergy to penicillins. After speaking with the son it does not appear that he has the ability to care for her as he has still has to work. It does sound as if her blood sugar is not well managed and the patient is having difficulty taking care of herself at home. She is generally weak which could be a combination of the hyperglycemia as well as a UTI. Patient did not receive any of her home medications this morning. For this reason I think the patient would benefit from inpatient treatment and possibly retirement. This was discussed with the hospitalist for admission. Impression: 1. Generalized weakness 2. UTI 3. Hyperglycemia Lab Data Attestation: I reviewed the patient's lab results. Labs: Laboratory Results - last 24 hr 10/03/21 10/03/21 10/03/21 08:26 08:50 08:50 WBC 11.2 H RBC 4.73 Hgb 13.7 Hct 40.9 MCV 86.5 MCH 29.0 MCHC 33.5 RDW Std Deviation 45.4 H RDW Coeff of Chad 14.2 Plt Count 270 MPV 11.1 Immature Gran % (Auto) 4.100 H Neut % (Auto) 67.4 Lymph % (Auto) 21.0 [place] % (Auto) 5.4 Eos % (Auto) 1.0 Baso % (Auto) 1.1 H Absolute Neuts (auto) 7.6 Absolute Lymphs (auto) 2.35 Nucleated RBC % 0 PT 11.8 INR 0.9 APTT 26.5 Sodium Potassium Chloride Carbon Dioxide Anion Gap BUN Creatinine Estim Creat Clear Calc Est GFR (MDRD) Af Amer Est GFR (MDRD) Non-Af BUN/Creatinine Ratio Glucose Lactic Acid Calcium Total Bilirubin AST ALT Alkaline Phosphatase Troponin I High Sens Total Protein Albumin Globulin Albumin/Globulin Ratio Urine Color Urine Clarity Urine pH Ur Specific [place] Urine Protein Urine Glucose (UA) Urine Ketones Urine Occult Blood Urine Nitrite Urine Bilirubin Urine Urobilinogen Ur Leukocyte Esterase Urine RBC Urine WBC Ur Squamous Epith Cells Urine Bacteria Urine Mucus Acetone Level POC Glucose > 500 H* 10/03/21 10/03/21 10/03/21 08:50 08:50 08:50 WBC RBC Hgb Hct MCV MCH MCHC RDW Std Deviation RDW Coeff of Chad Plt Count MPV Immature Gran % (Auto) Neut % (Auto) Lymph % (Auto) [place] % (Auto) Eos % (Auto) Baso % (Auto) Absolute Neuts (auto) Absolute Lymphs (auto) Nucleated RBC % PT INR APTT Sodium 131 L Potassium 4.1 Chloride 95 L Carbon Dioxide 28.0 Anion Gap 8 BUN 36 H Creatinine 1.47 H Estim Creat Clear Calc 26.46 Est GFR (MDRD) Af Amer 46 L Est GFR (MDRD) Non-Af 38 L BUN/Creatinine Ratio 24.5 H Glucose 739 H* Lactic Acid 0.8 Calcium 9.2 Total Bilirubin 0.30 AST 14 L ALT 28 Alkaline Phosphatase 212 H Troponin I High Sens 33 Total Protein 6.2 L Albumin 2.4 L Globulin 3.8 Albumin/Globulin Ratio 0.6 L Urine Color Urine Clarity Urine pH Ur Specific [place] Urine Protein Urine Glucose (UA) Urine Ketones Urine Occult Blood Urine Nitrite Urine Bilirubin Urine Urobilinogen Ur Leukocyte Esterase Urine RBC Urine WBC Ur Squamous Epith Cells Urine Bacteria Urine Mucus Acetone Level NEGATIVE POC Glucose 10/03/21 09:01 WBC RBC Hgb Hct MCV MCH MCHC RDW Std Deviation RDW Coeff of Chad Plt Count MPV Immature Gran % (Auto) Neut % (Auto) Lymph % (Auto) [place] % (Auto) Eos % (Auto) Baso % (Auto) Absolute Neuts (auto) Absolute Lymphs (auto) Nucleated RBC % PT INR APTT Sodium Potassium Chloride Carbon Dioxide Anion Gap BUN Creatinine Estim Creat Clear Calc Est GFR (MDRD) Af Amer Est GFR (MDRD) Non-Af BUN/Creatinine Ratio Glucose Lactic Acid Calcium Total Bilirubin AST ALT Alkaline Phosphatase Troponin I High Sens Total Protein Albumin Globulin Albumin/Globulin Ratio Urine Color Yellow Urine Clarity Cloudy Urine pH 6.0 Ur Specific [place] 1.010 Urine Protein 100 H Urine Glucose (UA) 1000 H Urine Ketones Negative Urine Occult Blood 50 H Urine Nitrite Negative Urine Bilirubin Negative Urine Urobilinogen Normal Ur Leukocyte Esterase 500 H Urine RBC 0 SEEN Urine WBC >100 SEEN Ur Squamous Epith Cells 0 SEEN Urine Bacteria 2+ Urine Mucus 0 SEEN Acetone Level POC Glucose Radiography Diagnostic Testing: Clinical Impression(s) from Imaging Studies Brain CT 10/03/21 08:33 IMPRESSION: No acute intracranial hemorrhage or mass effect. Stable chronic changes, as above. Electronically Signed: Jose A Wang MD ([place]) at 9:23 EST , Service support , Chest X-Ray 10/03/21 08:33 IMPRESSION: Nonacute portable x-ray examination of the chest. Electronically Signed: Jose A Wang MD ([place]) at 9:34 EST , Service support , Sacrum and Coccyx X-Ray 10/03/21 08:41 IMPRESSION: 1. No demonstrated fracture. Electronically Signed: Jose A Wang MD ([place]) at 9:35 EST , Service support , Discharge Plan Triage Chief Complaint: General Illness ED Provider: Tommie Valera Dx/Rx/DC Orders Primary Care Provider: Tera Butts
--- NOTE | 2021-10-03 08:41 | RAD_ITS ---
STUDY: X-RAY - SACRUM/COCCYX REASON FOR EXAM: Female, 66 years old. pain after falling, seizure-like activity TECHNIQUE: 3 view(s) of the sacrum and coccyx were obtained. COMPARISON: None. FINDINGS: There is degenerative arthrosis of the bilateral sacroiliac joints. There is demineralization of the sacral ala. Normal sacrococcygeal junction with a normal angulation. There is demineralization of the coccygeal segments. The presacral soft tissue structures are unremarkable. Right hip operative changes. Vascular phleboliths of the pelvis. RAD/Sacrum-Coccyx min 2 Views IMPRESSION: 1. No demonstrated fracture. Electronically Signed: Jose A Wang MD ([place]) at 9:35 EST , Service support ,
[2021-10-03 09:04] LABS: Absolute Lymphocyte Count 2.35 X10^3/uL (0.83-4.51); Absolute Neutrophil Count 7.6 X10^3/uL (2.0-7.7); Basophil# 0.12 X10^3/uL; Basophil% 1.1 % (0-1); Eosinophil# 0.11 X10^3/uL; Hematocrit 40.9 % (37-47); Hemoglobin 13.7 g/dL (12.0-15.0); Lymphocyte # 2.35 X10^3/ul (0.83-4.51); Mean Corp Hgb Conc 33.5 g/dL (32-36); Mean Corpuscular Volume 86.5 fL (81-99); Mean Platelet Vol. 11.1 fl (6.2-12.0); Monocyte% 5.4 % (0-10); NRBC Flagged by Analyzer 0 % (0-5); Neutrophil # 7.56 X10^3/uL (2.7-7.7); Neutrophil % 67.4 % (47-70); Platelet Count 270 K/mm3 (150-450); RBC Distribution Width CV 14.2 % (11.6-14.6); RBC Distribution Width SD 45.4 fl (35.1-43.9); Red Blood Count 4.73 M/mm3 (4.2-5.4); White Blood Count 11.2 K/mm3 (4.4-11.0)
[2021-10-03] MEDS: 0.9% Normal Saline 1,000 ML 999 ML IV ×3 (09:07→15:22)
[2021-10-03 09:13] LABS: Mucous, Urine 0 SEEN /hpf (<or=2+); Red Blood Cells-Urine 0 SEEN /hpf (0-5); Squamous Epithelial Cells - UA 0 SEEN /hpf (5-10)
[2021-10-03 09:20] LABS: Color, Urine Yellow (Yellow); Glucose, Dipstick 1000 mg/dl (Normal); Ketone-Dipstick Negative (Negative); Leukocyte Esterase-Dipstick 500 /ul (Negative); Nitrite-Dipstick Negative (Negative); Occult Blood-Urine 50 /ul (Negative); Protein-Dipstick 100 mg/dl (Negative); Urine Bilirubin Dipstick Negative (Negative); Urine Clarity Cloudy (Clear); Urine Urobilinogen Normal (Normal)
[2021-10-03 09:23] LABS: ALB/GLOB Ratio 0.6 RATIO (0.9-2.4); AST(SGOT) 14 U/L (15-37); Alanine Aminotransfer ALT/SGPT 28 U/L (13-56); Albumin, Serum 2.4 g/dL (3.2-5.0); Alkaline Phosphatase 212 U/L (45-117); Anion Gap 8 (5-15); BUN 36 mg/dL (7-18); BUN/Creat Ratio 24.5 RATIO (10-20); Calcium,Total 9.2 mg/dL (8.5-10.1); Chloride 95 mmol/L (98-107); Creatinine, Serum 1.47 mg/dL (0.55-1.02); EST Glomerular Filtration Rate 38 mL/min (>60); Est Glom Filt Rate - Afr Amer 46 mL/min (>60); Estimated Creatinine Clearance 26.46 ml/min; Globulin 3.8 g/dL (2.2-4.2); Glucose 739 mg/dL (74-106); Potassium 4.1 mmol/L (3.5-5.1); Protein, Total 6.2 g/dL (6.4-8.2); Sodium Level 131 mmol/L (136-145); Troponin-I HS 33 pg/mL (3.0-54.0)
[2021-10-03 09:27] LABS: Lactic Acid 0.8 mmol/L (0.4-1.9)
[2021-10-03 09:30] LABS: International Normalized Ratio 0.9; Partial Thromboplast Time 26.5 Seconds (24.1-36.2); Prothrombin Time (Protime)PT. 11.8 SECONDS (11.7-14.9)
[2021-10-03 09:33] LABS: Bacteria 2+ /hpf (None Seen); White Blood Cells >100 SEEN /hpf (0-5)
[2021-10-03] MEDS: Ciprofloxacin 400 MG/200 ML BAG 200 MG IV (11:03)
[2021-10-03 11:11] LABS: Bedside Glucose > 500 mg/dL (70-110)
[2021-10-03] MEDS: Insulin Lispro 100 UNIT/ML INSULN.PEN 20 UNIT SC (11:19)
--- NOTE | 2021-10-03 11:40 | NURSING ---
PCU TERELETSKY UTI, HYPERGLYCEMIA
--- NOTE | 2021-10-03 13:55 | PCM.HP.STD ---
Documented by User: Tremayne MAHARAJ 10/03/21 14:29 HPI - General General Date of Admission: 10/03/21 Date of Service: 10/03/21 Chief Complaint: weakness w/ fall HPI Narrative MELODY HUGGINS is a 66-year-old female who presents to the ED at [facility] on 09/13/2021 with a chief complaint of fall secondary to weakness. Patient recollection of episode was extremely limited, although patient reports that she fell when attempting to get out of bed this morning. ED physician note notes that family members observed some right arm shaking, concerning for possible stroke as patient has had these in the past, there was no loss of consciousness noted from family or patient. Vital signs in the ED are temperature of 97.5 ?F, HR 115, BP of 117/119, RR of 16 and patient is satting 89% on room air. CBC demonstrates WBCs at 11.2,, hemoglobin at 13.7 and platelet count of 270. CBC shows sodium at 131, potassium of 4.1, creatinine at 1.47 with a BUN of 36. Initially patient glucose was noted to be 739 in the ED. UA demonstrates yellow cloudy urine with negative nitrites, 500 leukocyte esterase, greater than 100 WBCs seen and 2+ bacteria. Patient acetone level negative. Brain CT demonstrates no acute intracranial hemorrhage or mass-effect, and is otherwise stable. Chest x-ray demonstrates no acute findings. X-ray of the sacrum and coccyx demonstrated no acute fracture. [facility] Medical History (Updated 10/03/21 @ 14:10 by Tremayne MAHARAJ) Arthritis Asthma Breast cancer Carpal tunnel syndrome Constipation CVA (cerebral vascular accident) Diabetes Flu vaccine need Hearing problem High blood pressure Hypertension Noncompliance Right hip pain Thyroid disease Vertigo Vision problems Home Medications cholecalciferol (vitamin D3) 2,000 unit PO DAILY 03/23/20 [History Last Taken Unknown] amlodipine 10 mg tablet 10 mg PO DAILY #90 tab 06/13/20 [Rx Last Taken Unknown] potassium chloride 20 mEq tablet,extended release(part/cryst) 40 meq PO DAILYCM #90 tab 06/30/20 [Rx Last Taken Unknown] enalapril maleate 10 mg tablet 10 mg PO BID #180 tab 07/07/20 [Rx Last Taken Unknown] calcium carbonate 600 mg calcium (1,500 mg) tablet 600 mg PO BID #180 tab 08/16/20 [Rx Last Taken Unknown] metformin 500 mg tablet 500 mg PO BIDCM #60 tab 09/06/20 [Rx Last Taken Unknown] compress.stocking,knee,reg,lrg #2 ea 09/11/20 [Rx Last Taken Unknown] carvedilol 12.5 mg tablet 12.5 mg PO Q12H #60 tab 02/07/21 [Rx Last Taken Unknown] doxazosin 2 mg tablet 2 mg PO DAILY #30 tab 03/09/21 [Rx Last Taken Unknown] levothyroxine 100 mcg tablet 100 mcg PO DAILY@0600 #60 tab 07/03/21 [Rx Last Taken Unknown] anastrozole 1 mg tablet 1 mg PO DAILY #90 tab 07/04/21 [Rx Last Taken Unknown] dulaglutide 3 mg/0.5 mL subcutaneous pen injector 3 mg SUBCUT QWEEK #2 ml 07/04/21 [Rx Last Taken 09/24/21] blood sugar diagnostic #50 ea 08/14/21 [Rx Last Taken Unknown] blood-glucose meter #1 ea 08/14/21 [Rx Last Taken Unknown] lancets 28 gauge #100 ea 08/14/21 [Rx Last Taken Unknown] pen needle, diabetic 29 gauge x 1/2 #100 ea 09/05/21 [Rx Last Taken Unknown] albuterol sulfate 2 puff INHALATION Q4H PRN 10/03/21 [History Last Taken Unknown] insulin aspart U-100 [Novolog Flexpen U-100 Insulin] 5 unit SUBCUT TIDCM 10/03/21 [History Last Taken Unknown] insulin glargine [Basaglar KwikPen U-100 Insulin] 25 unit SUBCUT QHS 10/03/21 [History Last Taken Unknown] magnesium oxide 400 mg PO BID 10/03/21 [History Last Taken Unknown] Allergy/AdvReac Type Severity Reaction Status Date / Time aspirin Allergy Unknown Nausea Verified 10/03/21 08:16 albuterol AdvReac I GET VERY Verified 10/03/21 08:16 SHAKEY/HYPERVENTILATING Penicillins AdvReac Nausea/Vom/ Verified 10/03/21 08:16 Diarrhea Family History Father Cancer bone cancer Brother Heart disease Surgical History (Updated 10/03/21 @ 14:06 by Tremayne MAHARAJ) H/O mastectomy History of appendectomy History of section Social History household members: significant other Smoking Status: Current every day smoker tobacco type: cigarettes Tobacco: How many years used: 50 alcohol intake: never substance use type: marijuana and other details: smokes 4 joints a day ROS Review of Systems ROS Unobtainable: due to encephalopathy and due to mental status Vital Signs Vital Signs Vital Signs: 10/03/21 08:17 10/03/21 08:48 10/03/21 08:50 Temperature 97.5 F L 97.9 F 97.9 F Temperature Source Temporal Temporal Temporal Pulse Rate 115 H 113 H Respiratory Rate 16 16 Respiratory Effort Respiratory Pattern Blood Pressure 172/119 H 173/111 H Blood Pressure Mean 136 131 Blood Pressure Source Blood Pressure Position Blood Pressure Location Pulse Ox 89 89 Oxygen Delivery Method Room Air Room Air Oxygen Flow Rate (L/min) 10/03/21 08:51 10/03/21 10:08 10/03/21 11:32 Temperature 97.4 F L 97.7 F L Temperature Source Temporal Temporal Pulse Rate 115 H 115 H Respiratory Rate 18 16 Respiratory Effort Normal Respiratory Pattern Normal Blood Pressure 208/130 H 150/95 H Blood Pressure Mean 156 113 Blood Pressure Source Blood Pressure Position Blood Pressure Location Pulse Ox 97 97 Oxygen Delivery Method Nasal Cannula Nasal Cannula Oxygen Flow Rate (L/min) 2 2 10/03/21 11:49 10/03/21 12:13 10/03/21 13:00 Temperature 97.7 F L 97.7 F L 97.9 F Temperature Source Temporal Temporal Oral Pulse Rate 115 H 109 H Respiratory Rate 18 16 Respiratory Effort Respiratory Pattern Blood Pressure 150/99 H 128/83 H Blood Pressure Mean 116 98 Blood Pressure Source Monitor Blood Pressure Position Semi-Fowlers Blood Pressure Location Left Arm Pulse Ox 96 95 Oxygen Delivery Method Nasal Cannula Nasal Cannula Oxygen Flow Rate (L/min) 2 2 Weight Weight: 136 lb 3.931 oz Body Mass Index (BMI) 26.6 Physical Exam Const alert and oriented x3 General Appearance: cooperative HEENT normocephalic, head/scalp atraumatic and hearing grossly normal bilaterally Eyes PERRL, EOMs intact bilaterally and conjunctivae normal Neck no lymphadenopathy, supple and no JVD Resp normal respiratory effort, no retractions, no use of accessory muscles and clear to auscultation bilaterally Cardio regular rate, regular rhythm, no murmurs and no JVD GI normal to inspection, nondistended, normoactive bowel sounds, soft to palpation and non-tender Extremity normal to inspection, full ROM and no clubbing, cyanosis or edema Peripheral Pulses: Yes pulses 2+ throughout Skin no rashes or lesions noted, no wounds and skin turgor normal Neuro CN's II-XII intact bilaterally Psych affect normal Results Lab / Micro Data Result Diagrams: 10/03/21 08:50 10/03/21 13:46 Labs: Laboratory Results - last 24 hr 10/03/21 08:26: POC Glucose > 500 H* 10/03/21 08:50: WBC 11.2 H, RBC 4.73, Hgb 13.7, Hct 40.9, MCV 86.5, MCH 29.0, MCHC 33.5, RDW Std Deviation 45.4 H, RDW Coeff of Chad 14.2, Plt Count 270, MPV 11.1, Immature Gran % (Auto) 4.100 H, Neut % (Auto) 67.4, Lymph % (Auto) 21.0, Coleman % (Auto) 5.4, Eos % (Auto) 1.0, Baso % (Auto) 1.1 H, Absolute Neuts (auto) 7.6, Absolute Lymphs (auto) 2.35, Nucleated RBC % 0 10/03/21 08:50: PT 11.8, INR 0.9, APTT 26.5 10/03/21 08:50: Sodium 131 L, Potassium 4.1, Chloride 95 L, Carbon Dioxide 28.0, Anion Gap 8, BUN 36 H, Creatinine 1.47 H, Estim Creat Clear Calc 26.46, Est GFR (MDRD) Af Amer 46 L, Est GFR (MDRD) Non-Af 38 L, BUN/Creatinine Ratio 24.5 H, Glucose 739 H*, Calcium 9.2, Total Bilirubin 0.30, AST 14 L, ALT 28, Alkaline Phosphatase 212 H, Troponin I High Sens 33, Total Protein 6.2 L, Albumin 2.4 L, Globulin 3.8, Albumin/Globulin Ratio 0.6 L 10/03/21 08:50: Acetone Level NEGATIVE 10/03/21 08:50: Lactic Acid 0.8 10/03/21 09:01: Urine Color Yellow, Urine Clarity Cloudy, Urine pH 6.0, Ur Specific Aurora 1.010, Urine Protein 100 H, Urine Glucose (UA) 1000 H, Urine Ketones Negative, Urine Occult Blood 50 H, Urine Nitrite Negative, Urine Bilirubin Negative, Urine Urobilinogen Normal, Ur Leukocyte Esterase 500 H, Urine RBC 0 SEEN, Urine WBC >100 SEEN, Ur Squamous Epith Cells 0 SEEN, Urine Bacteria 2+, Urine Mucus 0 SEEN 10/03/21 10:58: POC Glucose > 500 H* Radiology Impression Brain CT 10/03/21 08:33 IMPRESSION: No acute intracranial hemorrhage or mass effect. Stable chronic changes, as above. Electronically Signed: Jose A Wang MD (Brooks) at 9:23 EST , Service support , Chest X-Ray 10/03/21 08:33 IMPRESSION: Nonacute portable x-ray examination of the chest. Electronically Signed: Jose A Wang MD (Brooks) at 9:34 EST , Service support , Sacrum and Coccyx X-Ray 10/03/21 08:41 IMPRESSION: 1. No demonstrated fracture. Electronically Signed: Jose A Wang MD (Bro[place]) at 9:35 EST , Service support , Assessment & Plan Assessment/Plan (1) Acute hyperglycemia: (2) Acute cystitis: (3) Debility: PLAN: Patient is a 66-year-old female who presents to the ED at [facility] on 10/03/2021 with a chief complaint of fall secondary to weakness. Patient will be admitted for evaluation of acute hyperglycemia, acute cystitis and evaluation of debility. 1) acute hyperglycemia with DM2 history Believe this is due to medication noncompliance as patient and family member are unclear about insulin requirements. Initial blood glucose in the ED was 740, repeat sugars pending. Patient was placed on prednisone recently for COPD exacerbation in early August by Dr. Jones, patient and family are unclear whether she is still taking this medication or not. Plan; admit to PCU for monitoring, continue home insulin requirements, obtain hemoglobin A1c, initiate IV fluids, CBC and CMP in a.m., Accu-Cheks with sliding scale ordered, calorie controlled diet ordered. 2) acute cystitis UA obtained in the ED demonstrates yellow cloudy urine, negative nitrites, 500 leukocyte esterase, greater than 100 WBCs seen and 2+ bacteria. Patient does have a tachycardia, but is afebrile and other vital signs are stable. WBCs are mildly elevated at 11.2. Patient is without urinary complaints. Plan; continue Rocephin initiated in the ED, urine culture pending, blood cultures pending. 3) debility/adult failure to thrive Admission note from the ED states that patient fell out of bed this morning due to weakness. Imaging was negative for any acute fracture. PT/OT eval for possible placement to SNF. Chronic medications yet to be reconciled. CODE STATUS: Full code DVT prophylaxis - heparin Patient seen by Tremayne Vasques PA-C, under the supervision of Dr. Funes. Documented by User: Dr. Johnnie Funes, DO 10/03/21 20:44 HPI - General General Date of Admission: 10/03/21 [facility] Medical History (Updated 10/03/21 @ 14:10 by Tremayne MAHARAJ) Arthritis Asthma Breast cancer Carpal tunnel syndrome Constipation CVA (cerebral vascular accident) Diabetes Flu vaccine need Hearing problem High blood pressure Hypertension Noncompliance Right hip pain Thyroid disease Vertigo Vision problems Home Medications cholecalciferol (vitamin D3) 2,000 unit PO DAILY 03/23/20 [History Last Taken Unknown] amlodipine 10 mg tablet 10 mg PO DAILY #90 tab 06/13/20 [Rx Last Taken Unknown] potassium chloride 20 mEq tablet,extended release(part/cryst) 40 meq PO DAILYCM #90 tab 06/30/20 [Rx Last Taken Unknown] enalapril maleate 10 mg tablet 10 mg PO BID #180 tab 07/07/20 [Rx Last Taken Unknown] calcium carbonate 600 mg calcium (1,500 mg) tablet 600 mg PO BID #180 tab 08/16/20 [Rx Last Taken Unknown] metformin 500 mg tablet 500 mg PO BIDCM #60 tab 09/06/20 [Rx Last Taken Unknown] compress.stocking,knee,reg,lrg #2 ea 09/11/20 [Rx Last Taken Unknown] carvedilol 12.5 mg tablet 12.5 mg PO Q12H #60 tab 02/07/21 [Rx Last Taken Unknown] doxazosin 2 mg tablet 2 mg PO DAILY #30 tab 03/09/21 [Rx Last Taken Unknown] levothyroxine 100 mcg tablet 100 mcg PO DAILY@0600 #60 tab 07/03/21 [Rx Last Taken Unknown] anastrozole 1 mg tablet 1 mg PO DAILY #90 tab 07/04/21 [Rx Last Taken Unknown] dulaglutide 3 mg/0.5 mL subcutaneous pen injector 3 mg SUBCUT QWEEK #2 ml 07/04/21 [Rx Last Taken 09/24/21] blood sugar diagnostic #50 ea 08/14/21 [Rx Last Taken Unknown] blood-glucose meter #1 ea 08/14/21 [Rx Last Taken Unknown] lancets 28 gauge #100 ea 08/14/21 [Rx Last Taken Unknown] pen needle, diabetic 29 gauge x 1/2 #100 ea 09/05/21 [Rx Last Taken Unknown] albuterol sulfate 2 puff INHALATION Q4H PRN 10/03/21 [History Last Taken Unknown] insulin aspart U-100 [Novolog Flexpen U-100 Insulin] 5 unit SUBCUT TIDCM 10/03/21 [History Last Taken Unknown] insulin glargine [Basaglar KwikPen U-100 Insulin] 25 unit SUBCUT QHS 10/03/21 [History Last Taken Unknown] magnesium oxide 400 mg PO BID 10/03/21 [History Last Taken Unknown] Allergy/AdvReac Type Severity Reaction Status Date / Time aspirin Allergy Unknown Nausea Verified 10/03/21 08:16 albuterol AdvReac I GET VERY Verified 10/03/21 08:16 SHAKEY/HYPERVENTILATING Penicillins AdvReac Nausea/Vom/ Verified 10/03/21 08:16 Diarrhea Family History Father Cancer bone cancer Brother Heart disease Surgical History (Updated 10/03/21 @ 14:06 by Tremayne MAHARAJ) H/O mastectomy History of appendectomy History of section Social History household members: significant other Smoking Status: Current every day smoker tobacco type: cigarettes Tobacco: How many years used: 50 alcohol intake: never substance use type: marijuana and other details: smokes 4 joints a day Results Lab / Micro Data Result Diagrams: 10/03/21 08:50 10/03/21 13:46 Charges/Coding Addendum Addendum: Patient was seen and examined today independently of Tremayne Vasques, she came to the emergency room today with generalized weakness, she had a fall today at home. On examination she appeared older than her stated age, she is a poor informant, she does not appear to be in any distress. Vital signs as documented. Skin warm and dry and without overt rashes. Neck without JVD, thyroid appears normal, trachea is midline, neck is supple. Lungs clear, normal air movement was noted. Heart exam notable for regular rhythm, normal sounds and absence of murmurs, rubs or gallops. Abdomen unremarkable and without evidence of organomegaly, masses, or abdominal aortic enlargement, bowel sounds are present in all 4 quadrants, no abdominal tenderness was noted. Extremities nonedematous, no cyanosis was noted, no clubbing was noted. Neuro: Cranial nerves II through XII are grossly intact, no focal motor deficits were noted, sensation to light touch and pinprick is intact, motor exam 5/5 throughout. Psych: Patient is alert, she is a poor informant Work-up in the emergency room showed the patient's blood sugar to be highly elevated, her white count was 11.2, and she had evidence of acute cystitis. Patient will be admitted to PCU, she was given IV fluids and insulin in the emergency room, she is not in DKA and I do not believe she needs to be on an insulin drip at this time. In talking with the patient and the patient's , it appears that the patient has not been taking any of her medications, she states she does not want to take a lot of pills. Patient has had a history of noncompliance according to her medical record here. I told the patient that we will try to consolidate her medications and place her on once a day medications if she would agree to take these medications at the time of discharge-she stated that she was agreeable to this. I have readjusted her medications with the hope of making them as simple as possible, she will probably have to take some twice daily medications however. understands this. I will have podiatry see the patient for toenail care. I have reviewed Tremayne Vasques's history and physical including his medical assessment and plan of care and endorse it. Visit Charges Inpatient E&M: 84022 Init Hosp L3
--- NOTE | 2021-10-03 14:04 | PCS.PANDOC ---
PANDEMIC DOCUMENTATION INITIATED: Date: 05/21/2021 Time: 190
[2021-10-03 14:33] LABS: Glucose 440 mg/dL (74-106)
[2021-10-03] MEDS: Acetaminophen 325 MG Tablet 650 MG PO ×2 (14:52→21:33)
[2021-10-03] MEDS: Insulin Lispro 100 UNIT/ML INSULN.PEN 15 UNIT SC (15:22)
[2021-10-03] MEDS: 0.9% Normal Saline 1,000 ML 125 ML IV (16:44)
[2021-10-03] MEDS: Insulin Lispro 100 UNIT/ML INSULN.PEN SC (16:48)
[2021-10-03 16:55] LABS: Bedside Glucose 196 mg/dL (70-110)
[2021-10-03] MEDS: Atorvastatin Calcium 80 MG Tablet PO (21:33)
[2021-10-03] MEDS: Heparin Injection (Vial) 5,000 UNIT/ML VIAL 5000 UNIT SC (21:34)
[2021-10-03 21:51] LABS: Bedside Glucose 60 mg/dL (70-110)
[2021-10-03] MEDS: Ceftriaxone 1 GM/50 ML BAG IV (21:55)
[2021-10-03 22:56] LABS: Bedside Glucose 118 mg/dL (70-110)
[2021-10-03] MEDS: Mirtazapine 15 MG Tablet 7.5 MG PO (23:54)
[2021-10-04] VITALS (9 sets, daily range): BP systolic 128–154; BP diastolic 85–107; PULSE 83–106; RESP 16–18; TEMP 36.6–36.9; O2SAT 2–95
[2021-10-04] MEDS: 0.9% Normal Saline 1,000 ML 125 ML IV (04:04)
[2021-10-04 04:21] LABS: Bedside Glucose 62 mg/dL (70-110)
[2021-10-04 05:39] LABS: Absolute Lymphocyte Count 2.82 X10^3/uL (0.83-4.51); Absolute Neutrophil Count 9.3 X10^3/uL (2.0-7.7); Basophil# 0.08 X10^3/uL; Basophil% 0.6 % (0-1); Eosinophil# 0.08 X10^3/uL; Eosinophils% 0.6 % (0-5); Hematocrit 36.3 % (37-47); Hemoglobin 11.7 g/dL (12.0-15.0); Lymphocyte # 2.82 X10^3/ul (0.83-4.51); Lymphocyte % 21.5 % (19-41); Mean Corp Hgb Conc 32.2 g/dL (32-36); Mean Corpuscular Hgb 28.3 pg (27.0-32.0); Mean Corpuscular Volume 87.7 fL (81-99); Mean Platelet Vol. 11.2 fl (6.2-12.0); Monocyte# 0.73 X10^3/uL; Monocyte% 5.6 % (0-10); NRBC Flagged by Analyzer 0 % (0-5); Neutrophil # 9.27 X10^3/uL (2.7-7.7); Neutrophil % 70.5 % (47-70); Platelet Count 240 K/mm3 (150-450); RBC Distribution Width CV 14.6 % (11.6-14.6); RBC Distribution Width SD 47.1 fl (35.1-43.9); Red Blood Count 4.14 M/mm3 (4.2-5.4); White Blood Count 13.1 K/mm3 (4.4-11.0)
[2021-10-04 06:20] LABS: Anion Gap 6 (5-15); BUN 22 mg/dL (7-18); Calcium,Total 7.5 mg/dL (8.5-10.1); Chloride 110 mmol/L (98-107); Creatinine, Serum 0.96 mg/dL (0.55-1.02); EST Glomerular Filtration Rate 62 mL/min (>60); Est Glom Filt Rate - Afr Amer 75 mL/min (>60); Estimated Creatinine Clearance 40.85 ml/min; Glucose 68 mg/dL (74-106); Sodium Level 143 mmol/L (136-145)
[2021-10-04] MEDS: Levothyroxine 100 MCG Tablet PO (06:32)
[2021-10-04 07:16] LABS: Bedside Glucose 58 mg/dL (70-110)
[2021-10-04] MEDS: Dextrose 50%-Water 25 GM/50 ML DISP.SYRIN IV (07:16)
[2021-10-04] MEDS: Ceftriaxone 1 GM/50 ML BAG IV (09:56)
[2021-10-04] MEDS: Doxazosin 1 MG Tablet 2 MG PO (09:57)
[2021-10-04] MEDS: Acetaminophen 325 MG Tablet 650 MG PO ×2 (09:57→16:16)
[2021-10-04] MEDS: Heparin Injection (Vial) 5,000 UNIT/ML VIAL 5000 UNIT SC (09:57)
[2021-10-04] MEDS: Potassium Chloride Oral Tablet 20 MEQ 40 MEQ PO (09:57)
[2021-10-04] MEDS: Lisinopril 20 MG Tablet PO (09:58)
[2021-10-04] MEDS: Clopidogrel Bisulfate 75 MG Tablet PO (09:58)
[2021-10-04] MEDS: amLODIPine 10 MG Tablet PO (09:58)
--- NOTE | 2021-10-04 10:26 | CASEMGMT ---
RN CM Assessment: Face to Face with patient for initial transition planning/care coordination assessment. Patient sitting in chair, appears drowsy but able to answer questions appropriately. CCM introduced self and role at [facility]. Care providers, pharmacy, and demographics verified. PCP: Benjamín Specialists: None [facility] Insurance: [place] Prescription Benefit: yes Living Will/HPOA: Patient denies having living will or HPOA. LNOK: , [place] Living Arrangements: Patient lives with and friend in two story house with one step to enter the home. Patient states she needs assistance with ADLs. Transportation: DME/HHC: Patient ambulates short distances with walker. Patient has glucometer at home, states checks blood sugars once a day. Denies previous HHC or SNF stays. Plan: SNF
--- NOTE | 2021-10-04 10:47 | CASEMGMT ---
Physician informed SW that patient is in agreement with going to a SNF as long as it is TCU. SW met with patient, introduced self as well as role at [facility]. Patient confirmed she wants [facility] TCU. SW offered a list of local SNFs with Medicare ratings, but patient declined stating she wants [facility] TCU. SW spoke with Kirti in TCU and they can take patient. Kirti will start the pre-cert. SW called patient's . Introduced self and role at [facility]. SW let him know that patient is going to go to [facility] TCU when her insurance gives us the okay. LUIS ARMANDO explained staff will notify him when patient is being discharged to TCU. Plan: d/c to [facility] TCU pending insurance approval. Josy WHITTEN
[2021-10-04] MEDS: Insulin Lispro 100 UNIT/ML INSULN.PEN SC (11:30)
[2021-10-04 11:35] LABS: Bedside Glucose 208 mg/dL (70-110)
--- NOTE | 2021-10-04 12:08 | CHAPLAIN ---
Type of Pastoral Visit _x__ Initial Visit ___ Follow-up Visit ___ On-call Visit ___ General Patient Visit ___ Spiritual Assessment ___ Family Conference ___ Bereavement ___ Rapid Response ___ Code Blue ___ Other (describe below) Pastoral Care Referral From _x__ Patient ___ Family ___ Nurse ___ Physician ___ Counter Sales Person ___ Bristle Machine Operator ___ Other (describe below) Sacrament/Intervention _x__ Active listening ___ Anointing ___ Hindu ___ Bereavement ___ Communion ___ Tessie exploration ___ ___ Life review _x__ Prayer ___ Reconciliation ___ Sacrament of Sick _x__ Supportive presence ___ Wedding ___ Other (describe below) Pastoral Comments patient has been seen in previous admission; pt welcomes presence and prayer
[2021-10-04 12:15] LABS: Magnesium 1.5 mg/dL (1.6-2.6)
[2021-10-04] MEDS: Furosemide 40 MG/4 ML Vial IV (13:38)
[2021-10-04] MEDS: Magnesium Sulfate 4gm/100mL 4 GM/100 ML IV.SOLN. IV (13:39)
[2021-10-04] MEDS: Potassium Chloride Oral Tablet 20 MEQ PO (13:39)
--- NOTE | 2021-10-04 13:40 | PCM.TXEXTCAR ---
Diet 10/03/21 13:19 Diet: Cardiac: Calorie-Controlled Food consistency:: Regular Liquid Consistency:: Regular/Thin How many daily calories?: 1800 calorie Routine Orders/Code Status Enema Type: Fleetz Enema Frequency: Daily PRN Suppository Type: Dulcolax 10mg Suppository Frequency: Daily PRN Code Status: Full Code Wound(s) BLE: Wound Type: cat scratches Suggestions for Active Care Hours to sit in a chair: 3 Times a day to sit in chair: 2 Therapies Physical Therapy: Eval and Treat Occupational Therapy: Eval and Treat Problem/Diagnosis (1) Acute hyperglycemia: Status: Acute (2) Acute cystitis: Status: Acute (3) Debility: Status: Acute Allergies/Procedures Done in Hospital Allergies aspirin Allergy (Unknown, Verified 10/03/21 08:16) Nausea albuterol Adverse Reaction (Verified 10/03/21 08:16) I GET VERY SHAKEY/HYPERVENTILATING Penicillins Adverse Reaction (Verified 10/03/21 08:16) Nausea/Vom/Diarrhea Procedures: None Type of Care/Length of Stay Estimated LOS: Convalescent Care Less Than 30 days Type of Care Needed: Skilled Rehab Potential: Fair Prognosis: Fair Additional Orders/Day of Discharge Day of Discharge: 10/04/21 Discharge Plan Admission Admit Date/Time: 10/03/21 10:57 Primary Reason for Your Visit: Debility Attending Provider: Johnnie Funes Primary Care Provider: Tera Butts Consulting Providers: Azam Mcclelland Discharge Orders/Prescriptions Prescriptions: New lisinopril 20 mg Tablet 20 mg PO DAILY Qty: 0 RF: 0 potassium chloride [Klor-Con M20] 20 mEq Tablet,Er Particles/Crystals 20 meq PO BIDCM Qty: 0 RF: 0 clopidogrel [Plavix] 75 mg tablet 75 mg PO DAILY Qty: 30 RF: 0 Basaglar KwikPen U-100 Insulin 100 unit/mL (3 mL) insulin pen 15 unit subcut BID Qty: 15 RF: 0 Continued amlodipine 10 mg tablet 10 mg PO DAILY Qty: 90 RF: 3 carvedilol 12.5 mg tablet 12.5 mg PO Q12H Qty: 60 RF: 2 doxazosin 2 mg tablet 2 mg PO DAILY Qty: 30 RF: 1 anastrozole 1 mg tablet 1 mg PO DAILY Qty: 90 RF: 0 cholecalciferol (vitamin D3) 1,000 UNIT tablet 2,000 unit PO DAILY RF: 0 albuterol sulfate 90 mcg/actuation HFA aerosol inhaler 2 puff INHALATION Q4H PRN (Reason: SOB) RF: 0 potassium chloride 20 mEq tablet,ER particles/crystals 40 meq PO DAILYCM Qty: 90 RF: 2 calcium carbonate 600 mg calcium (1,500 mg) tablet 600 mg PO BID Qty: 180 RF: 1 metformin 500 mg tablet 500 mg PO BIDCM Qty: 60 RF: 1 levothyroxine 100 mcg tablet 100 mcg PO DAILY@0600 Qty: 60 RF: 3 Discontinued Trulicity 3 mg/0.5 mL pen injector 3 mg subcut QWEEK Qty: 2 RF: 0 insulin aspart U-100 [Novolog Flexpen U-100 Insulin] 100 unit/mL (3 mL) insulin pen 5 unit SUBCUT TIDCM RF: 0 Basaglar KwikPen U-100 Insulin 100 unit/mL (3 mL) insulin pen 25 unit SUBCUT QHS RF: 0 magnesium oxide 400 mg magnesium Capsule 400 mg PO BID RF: 0 enalapril maleate 10 mg tablet 10 mg PO BID Qty: 180 RF: 2 No Action (DME) compress.stocking,knee,reg,lrg Misc See Rx Instructions .MEDSUPPLY Qty: 2 RF: 1 (DME) lancets [FreeStyle Lancets] 28 gauge misc See Rx Instructions .ROUTE .MEDSUPPLY Qty: 100 RF: 11 (DME) blood-glucose meter [FreeStyle System Kit] Kit See Rx Instructions .ROUTE .MEDSUPPLY Qty: 1 RF: 0 (DME) FreeStyle Test Strip See Rx Instructions .ROUTE .MEDSUPPLY Qty: 50 RF: 11 (DME) pen needle, diabetic [Unifine Pentips] 29 gauge x 1/2 needle See Rx Instructions .ROUTE .MEDSUPPLY Qty: 100 RF: 3 Referrals / Follow Up: Tera Butts MD [Primary Care Provider] - Disposition Disposition (needs filled in before D/C Order can be placed): [facility]
--- NOTE | 2021-10-04 13:56 | DS.PCM_ITS ---
Documented by User: [email or web address] Bryan 10/04/21 14:03 Providers Date of Admission: 10/03/21 Primary Care Physician: Dr. Tera Butts MD Consultations 10/03/21 14:36 Consult: Podiatry Routine Consulting Provider: Azam Mcclelland Reason for Consult: toenail care EMERGENT Consult: No MD Notified: Yes Date Notified: 10/03/21 Time Notified: 14:36 Method of Notification: Verbal Reason For Visit: CYSTITIS, UNCONTROLLED DIABETES Diagnosis Discharge Diagnosis (1) Acute hyperglycemia: Status: Acute Code(s): R73.9 - Hyperglycemia, unspecified (2) Acute cystitis: Status: Acute Code(s): N30.00 - Acute cystitis without hematuria (3) Debility: Status: Acute Code(s): R53.81 - Other malaise Medications at Discharge Home Medications cholecalciferol (vitamin D3) 2,000 unit PO DAILY 03/23/20 amlodipine 10 mg tablet 10 mg PO DAILY #90 tab 06/13/20 calcium carbonate 600 mg calcium (1,500 mg) tablet 600 mg PO BID #180 tab 08/16/20 metformin 500 mg tablet 500 mg PO BIDCM #60 tab 09/06/20 levothyroxine 100 mcg tablet 100 mcg PO DAILY@0600 #60 tab 07/03/21 anastrozole 1 mg tablet 1 mg PO DAILY #90 tab 07/04/21 albuterol sulfate 2 puff INHALATION Q4H PRN 10/03/21 blood sugar diagnostic [FreeStyle Test] 10/04/21 blood-glucose meter [FreeStyle System Kit] 10/04/21 carvedilol 12.5 mg PO Q12H 10/04/21 cephalexin [Keflex] 750 mg PO BID 10/04/21 clopidogrel [Plavix] 75 mg PO DAILY 10/04/21 compress.stocking,knee,reg,lrg 10/04/21 doxazosin 2 mg PO DAILY 10/04/21 insulin glargine [Basaglar KwikPen U-100 Insulin] 15 unit SUBCUT BID 10/04/21 lancets [FreeStyle Lancets] 10/04/21 lisinopril 20 mg PO DAILY 10/04/21 pen needle, diabetic [Unifine Pentips] 10/04/21 potassium chloride [Klor-Con M20] 20 meq PO BIDCM 10/04/21 Hospital Course Operations None Procedures None Summary of Care Provided Minutes Spent on Discharge: 35 Physical Exam Const General Appearance: cooperative Orientation / Consciousness: lethargic HEENT normocephalic and head/scalp atraumatic Eyes conjunctivae normal and no scleral icterus Neck supple General: trachea midline Resp normal respiratory effort, normal air movement and clear to auscultation bilaterally Cardio regular rate, regular rhythm, S1 normal heart sound and S2 normal heart sound GI normal to inspection, nondistended, normoactive bowel sounds, soft to palpation and non-tender Extremity normal capillary refill General Extremity: edema bilateral lower extremity Details: moderate and no tenderness to palpation of joints or extremities Skin skin turgor normal Lesions: no lesions Rashes: no rashes Neuro oriented x3, moves all extremities, no focal motor deficits and no sensory deficits noted Psych Mood & Affect: flat affect Weight / BMI Weight Weight: 136 lb 3.931 oz Body Mass Index (BMI) 26.6 ABG / Lab / Microbiology Data Result Diagrams: 10/04/21 05:05 10/04/21 05:05 Laboratory: Laboratory Results - last 24 hr 10/03/21 13:46: Glucose 440 H 10/03/21 16:47: POC Glucose 196 H 10/03/21 21:23: POC Glucose 60 L 10/03/21 22:50: POC Glucose 118 H 10/04/21 03:52: POC Glucose 62 L 10/04/21 05:05: WBC 13.1 H, RBC 4.14 L, Hgb 11.7 L, Hct 36.3 L, MCV 87.7, MCH 28.3, MCHC 32.2, RDW Std Deviation 47.1 H, RDW Coeff of Chad 14.6, Plt Count 240, MPV 11.2, Immature Gran % (Auto) 1.200 H, Neut % (Auto) 70.5 H, Lymph % (Auto) 21.5, [place] % (Auto) 5.6, Eos % (Auto) 0.6, Baso % (Auto) 0.6, Absolute Neuts ( auto) 9.3 H, Absolute Lymphs (auto) 2.82, Nucleated RBC % 0 10/04/21 05:05: Sodium 143, Potassium 3.0 L, Chloride 110 H, Carbon Dioxide 27.0, Anion Gap 6, BUN 22 H, Creatinine 0.96, Estim Creat Clear Calc 40.85, Est GFR (MDRD) Af Amer 75, Est GFR (MDRD) Non-Af 62, BUN/Creatinine Ratio 23.0 H, Glucose 68 L, Calcium 7.5 L 10/04/21 05:05: Magnesium 1.5 L 10/04/21 06:40: POC Glucose 58 L 10/04/21 11:29: POC Glucose 208 H Microbiology: Microbiology 10/03/21 09:01 Urine, Catheterized Urine Culture - Preliminary Beta streptococcus D/C Instructions Discharge Diet: Low fat / Low cholesterol and 1800 Calorie Control Diet Call your doctor if you observe: Shortness of breath, Swelling in the ankles and Chest pain Meaningful Use Info Meaningful Use Diagnoses (Choose all that apply): None applicable Discharge Plan Admission Admit Date/Time: 10/03/21 10:57 Primary Reason for Your Visit: Debility Attending Provider: Johnnie Funes Primary Care Provider: Tera Butts Consulting Providers: Azam Mcclelland Instructions Patient Instructions: Taking Medication Safely, Tips for Taking Medicines Discharge Orders/Prescriptions Prescriptions: Continued amlodipine 10 mg tablet 10 mg PO DAILY Qty: 90 RF: 3 anastrozole 1 mg tablet 1 mg PO DAILY Qty: 90 RF: 0 cholecalciferol (vitamin D3) 1,000 UNIT tablet 2,000 unit PO DAILY RF: 0 albuterol sulfate 90 mcg/actuation HFA aerosol inhaler 2 puff INHALATION Q4H PRN (Reason: SOB) RF: 0 calcium carbonate 600 mg calcium (1,500 mg) tablet 600 mg PO BID Qty: 180 RF: 1 metformin 500 mg tablet 500 mg PO BIDCM Qty: 60 RF: 1 levothyroxine 100 mcg tablet 100 mcg PO DAILY@0600 Qty: 60 RF: 3 Discontinued Trulicity 3 mg/0.5 mL pen injector 3 mg subcut QWEEK Qty: 2 RF: 0 insulin aspart U-100 [Novolog Flexpen U-100 Insulin] 100 unit/mL (3 mL) insulin pen 5 unit SUBCUT TIDCM RF: 0 Basaglar KwikPen U-100 Insulin 100 unit/mL (3 mL) insulin pen 25 unit SUBCUT QHS RF: 0 magnesium oxide 400 mg magnesium Capsule 400 mg PO BID RF: 0 enalapril maleate 10 mg tablet 10 mg PO BID Qty: 180 RF: 2 No Action carvedilol 12.5 mg tablet 12.5 mg PO Q12H RF: 0 lisinopril 20 mg tablet 20 mg PO DAILY RF: 0 clopidogrel [Plavix] 75 mg tablet 75 mg PO DAILY RF: 0 (DME) FreeStyle Test Strip See Rx Instructions .ROUTE .MEDSUPPLY RF: 0 potassium chloride [Klor-Con M20] 20 mEq tablet,ER particles/crystals 20 meq PO BIDCM RF: 0 (DME) blood-glucose meter [FreeStyle System Kit] Kit See Rx Instructions .ROUTE .MEDSUPPLY RF: 0 doxazosin 2 mg tablet 2 mg PO DAILY RF: 0 (DME) pen needle, diabetic [Unifine Pentips] 29 gauge x 1/2 needle See Rx Instructions .ROUTE .MEDSUPPLY RF: 0 cephalexin [Keflex] 750 mg capsule 750 mg PO BID RF: 0 Basaglar KwikPen U-100 Insulin 100 unit/mL (3 mL) insulin pen 15 unit subcut BID RF: 0 (DME) compress.stocking,knee,reg,lrg Misc See Rx Instructions MISCELLANEOUS RF: 0 (DME) lancets [FreeStyle Lancets] 28 gauge misc See Rx Instructions .ROUTE .MEDSUPPLY RF: 0 Referrals / Follow Up: Tera Butts MD [Primary Care Provider] - Disposition Disposition (needs filled in before D/C Order can be placed): [facility]irement Facility Documented by User: Dr. Johnnie Funes DO 10/07/21 19:25 Providers Date of Admission: 10/03/21 Reason For Visit: CYSTITIS, UNCONTROLLED DIABETES Medications at Discharge Home Medications cholecalciferol (vitamin D3) 2,000 unit PO DAILY 03/23/20 amlodipine 10 mg tablet 10 mg PO DAILY #90 tab 06/13/20 calcium carbonate 600 mg calcium (1,500 mg) tablet 600 mg PO BID #180 tab 08/16/20 metformin 500 mg tablet 500 mg PO BIDCM #60 tab 09/06/20 levothyroxine 100 mcg tablet 100 mcg PO DAILY@0600 #60 tab 07/03/21 anastrozole 1 mg tablet 1 mg PO DAILY #90 tab 07/04/21 albuterol sulfate 2 puff INHALATION Q4H PRN 10/03/21 blood sugar diagnostic [FreeStyle Test] 10/04/21 blood-glucose meter [FreeStyle System Kit] 10/04/21 carvedilol 12.5 mg PO Q12H 10/04/21 cephalexin [Keflex] 750 mg PO BID 10/04/21 clopidogrel [Plavix] 75 mg PO DAILY 10/04/21 compress.stocking,knee,reg,lrg 10/04/21 doxazosin 2 mg PO DAILY 10/04/21 insulin glargine [Basaglar KwikPen U-100 Insulin] 15 unit SUBCUT BID 10/04/21 lancets [FreeStyle Lancets] 10/04/21 lisinopril 20 mg PO DAILY 10/04/21 pen needle, diabetic [Unifine Pentips] 10/04/21 potassium chloride [Klor-Con M20] 20 meq PO BIDCM 10/04/21 ABG / Lab / Microbiology Data Result Diagrams: 10/04/21 05:05 10/04/21 05:05 Discharge Plan Admission Admit Date/Time: 10/03/21 10:57 Primary Reason for Your Visit: Debility Attending Provider: Johnnie Funes Primary Care Provider: Tera Butts Consulting Providers: Azam Mcclelland Instructions Patient Instructions: Taking Medication Safely, Tips for Taking Medicines Discharge Orders/Prescriptions Prescriptions: Continued amlodipine 10 mg tablet 10 mg PO DAILY Qty: 90 RF: 3 anastrozole 1 mg tablet 1 mg PO DAILY Qty: 90 RF: 0 cholecalciferol (vitamin D3) 1,000 UNIT tablet 2,000 unit PO DAILY RF: 0 albuterol sulfate 90 mcg/actuation HFA aerosol inhaler 2 puff INHALATION Q4H PRN (Reason: SOB) RF: 0 calcium carbonate 600 mg calcium (1,500 mg) tablet 600 mg PO BID Qty: 180 RF: 1 metformin 500 mg tablet 500 mg PO BIDCM Qty: 60 RF: 1 levothyroxine 100 mcg tablet 100 mcg PO DAILY@0600 Qty: 60 RF: 3 Discontinued Trulicity 3 mg/0.5 mL pen injector 3 mg subcut QWEEK Qty: 2 RF: 0 insulin aspart U-100 [Novolog Flexpen U-100 Insulin] 100 unit/mL (3 mL) insulin pen 5 unit SUBCUT TIDCM RF: 0 Basaglar KwikPen U-100 Insulin 100 unit/mL (3 mL) insulin pen 25 unit SUBCUT QHS RF: 0 magnesium oxide 400 mg magnesium Capsule 400 mg PO BID RF: 0 enalapril maleate 10 mg tablet 10 mg PO BID Qty: 180 RF: 2 No Action carvedilol 12.5 mg tablet 12.5 mg PO Q12H RF: 0 lisinopril 20 mg tablet 20 mg PO DAILY RF: 0 clopidogrel [Plavix] 75 mg tablet 75 mg PO DAILY RF: 0 (DME) FreeStyle Test Strip See Rx Instructions .ROUTE .MEDSUPPLY RF: 0 potassium chloride [Klor-Con M20] 20 mEq tablet,ER particles/crystals 20 meq PO BIDCM RF: 0 (DME) blood-glucose meter [FreeStyle System Kit] Kit See Rx Instructions .ROUTE .MEDSUPPLY RF: 0 doxazosin 2 mg tablet 2 mg PO DAILY RF: 0 (DME) pen needle, diabetic [Unifine Pentips] 29 gauge x 1/2 needle See Rx Instructions .ROUTE .MEDSUPPLY RF: 0 cephalexin [Keflex] 750 mg capsule 750 mg PO BID RF: 0 Basaglar KwikPen U-100 Insulin 100 unit/mL (3 mL) insulin pen 15 unit subcut BID RF: 0 (DME) compress.stocking,knee,reg,lrg Misc See Rx Instructions MISCELLANEOUS RF: 0 (DME) lancets [FreeStyle Lancets] 28 gauge misc See Rx Instructions .ROUTE .MEDSUPPLY RF: 0 Referrals / Follow Up: Tera Butts MD [Primary Care Provider] - Disposition Disposition (needs filled in before D/C Order can be placed): Retirement Facility Charges/Coding Addendum Addendum: Patient was seen and examined today independently of Zina Gil. Her blood sugars are under better control at this time and she appears to be stable for transfer to an extended care facility for short-term rehab services. On examination she appeared older than her stated age, she does not appear to be in any distress. Vital signs as documented. Skin warm and dry and without overt rashes. Neck without JVD, thyroid appears normal, trachea is midline, neck is supple. Lungs clear, normal air movement was noted. Heart exam notable for regular rhythm, normal sounds and absence of murmurs, rubs or gallops. Abdomen unremarkable and without evidence of organomegaly, masses, or abdominal aortic enlargement, bowel sounds are present in all 4 quadrants, no abdominal tenderness was noted. Extremities nonedematous, no cyanosis was noted, no clubbing was noted. Neuro: Cranial nerves II through XII are grossly intact, no focal motor deficits were noted, sensation to light touch and pinprick is intact, motor exam 5/5 throughout. Psych: Patient is alert and oriented x3, she does not appear anxious or depressed, she does not appear agitated. Assessment #1 uncontrolled type 2 diabetes-I have adjusted the patient's insulin at the time of discharge to TCU, blood sugars will be monitored #2 acute cystitis with Streptococcus agalactiae-patient will finish antibiotic treatment in TCU #3 hypothyroidism-patient will resume her home medications in TCU #4 cerebrovascular disease-patient is on aspirin for prevention #5 essential hypertension-patient's blood pressure medications were adjusted #6 noncompliance with medication usage-patient will need to be educated on the importance of taking her home medications while she is in TCU. #7 stage IIIa chronic kidney disease secondary to type 2 diabetes-labs will need to be monitored as an outpatient, blood sugars will need to be controlled to prevent further kidney injury #8 hypokalemia-potassium replacement was given during the patient's hospitalization, potassium level at the time of discharge was normal I have reviewed Zina Rosarioestella's discharge summary including her medical assessment and plan of care and with the above additions endorse it Visit Charges Inpatient E&M: 75322 Disch Hosp
--- NOTE | 2021-10-04 13:57 | CASEMGMT ---
LUIS ARMANDO spoke with Kirti and patient's insurance is waiving pre-cert. Patient can go to TCU today. LUIS ARMANDO notified RN and Nurse Practitioner. Josy [place] MSW MARIA DOLORES
--- NOTE | 2021-10-04 14:15 | CASEMGMT ---
LUIS ARMANDO notified patient that she will be discharged to [facility] TCU today. SW let her know SW will call her and let him know. LUIS ARMANDO called patient's Cullen and let him know patient will be going to [facility] TCU today. He thanked LUIS ARMANDO for letting him know. Plan: d/c to [facility] TCU under skilled level of care. Josy WHITTEN
--- NOTE | 2021-10-04 14:20 | NURSING ---
Gave report to nurse Aguilar on TCU
--- NOTE | 2021-10-04 14:57 | PCM.CONS.GEN ---
Assessment & Plan Assessment/Plan (1) Nail dystrophy: (2) Type 2 diabetes mellitus: (3) Pain of toes of both feet: (4) Pain in left toe(s): PLAN: Evaluation performed. Discussed condition and treatment options with patient. Debrided toenails 1-5 bilateral using a nail nipper removing bulk. This was done without incident. Proper foot care reviewed. She can follow up with [facility] for further [facility] care after discharge. Please call sooner if needed. HPI Consult Data Date of Consult: 10/04/21 HPI Narrative HPI Narrative: MELODY HUGGINS, is a 66 F who was seen for long thickened ingrown painful toenails, she is unable to maintain herself. Patient with no other pedal complaints, and suppose to go to TCU today. [facility] Medical History (Updated 10/04/21 @ 14:[address] Azam Mcclelland, DPChing) Arthritis Asthma Breast cancer Carpal tunnel syndrome Constipation CVA (cerebral vascular accident) Diabetes Flu vaccine need Hearing problem High blood pressure Hypertension Noncompliance Right hip pain Thyroid disease Vertigo Vision problems Home Medications cholecalciferol (vitamin D3) 2,000 unit PO DAILY 03/23/20 [History Last Taken Unknown] amlodipine 10 mg tablet 10 mg PO DAILY #90 tab 06/13/20 [Rx Last Taken Unknown] potassium chloride 20 mEq tablet,extended release(part/cryst) 40 meq PO DAILYCM #90 tab 06/30/20 [Rx Last Taken Unknown] calcium carbonate 600 mg calcium (1,500 mg) tablet 600 mg PO BID #180 tab 08/16/20 [Rx Last Taken Unknown] metformin 500 mg tablet 500 mg PO BIDCM #60 tab 09/06/20 [Rx Last Taken Unknown] compress.stocking,knee,reg,lrg #2 ea 09/11/20 [Rx Last Taken Unknown] carvedilol 12.5 mg tablet 12.5 mg PO Q12H #60 tab 02/07/21 [Rx Last Taken Unknown] doxazosin 2 mg tablet 2 mg PO DAILY #30 tab 03/09/21 [Rx Last Taken Unknown] levothyroxine 100 mcg tablet 100 mcg PO DAILY@0600 #60 tab 07/03/21 [Rx Last Taken Unknown] anastrozole 1 mg tablet 1 mg PO DAILY #90 tab 07/04/21 [Rx Last Taken Unknown] blood sugar diagnostic #50 ea 08/14/21 [Rx Last Taken Unknown] blood-glucose meter #1 ea 08/14/21 [Rx Last Taken Unknown] lancets 28 gauge #100 ea 08/14/21 [Rx Last Taken Unknown] pen needle, diabetic 29 gauge x 1/2 #100 ea 09/05/21 [Rx Last Taken Unknown] albuterol sulfate 2 puff INHALATION Q4H PRN 10/03/21 [History Last Taken Unknown] cephalexin [Keflex] 750 mg PO BID 7 Days #14 cap 10/04/21 [Rx Last Taken Unknown] clopidogrel [Plavix] 75 mg PO DAILY #30 tab 10/04/21 [Rx Last Taken Unknown] insulin glargine [Basaglar KwikPen U-100 Insulin] 15 unit SUBCUT BID #15 ml 10/04/21 [Rx Last Taken Unknown] lisinopril 20 mg PO DAILY #0 tab 10/04/21 [Rx Last Taken Unknown] potassium chloride [Klor-Con M20] 20 meq PO BIDCM #0 tab 10/04/21 [Rx Last Taken Unknown] Allergy/AdvReac Type Severity Reaction Status Date / Time aspirin Allergy Unknown Nausea Verified 10/03/21 08:16 albuterol AdvReac I GET VERY Verified 10/03/21 08:16 SHAKEY/HYPERVENTILATING Penicillins AdvReac Nausea/Vom/ Verified 10/03/21 08:16 Diarrhea Family History Father Cancer bone cancer Brother Heart disease Surgical History (Updated 10/03/21 @ 14:06 by Tremayne MAHARAJ) H/O mastectomy History of appendectomy History of section Social History household members: significant other Smoking Status: Current every day smoker tobacco type: cigarettes Tobacco: How many years used: 50 alcohol intake: never substance use type: marijuana and other details: smokes 4 joints a day Physical Exam Const alert, oriented x3 and no apparent distress Extremity Extremity Narrative: Toenails 1-5 bilateral are elongated, thickened, dystrophic, incurvated, painful with subungual debris. There are no open lesions, no erythema, no cellulitis, no necrosis, no tissue loss to the foot or ankle bilateral. CFT < 2 seconds to all toes bilateral, pedal pulses intact bilateral. No m/s POP or pain on ROM to the foot or ankle, no gross instability to the foot or ankle bilateral. Sensation intact via light touch to the foot and ankle bilateral. Lab / Micro Data Result Diagrams: 10/04/21 05:05 10/04/21 05:05 Labs: Laboratory Results - last 24 hr 10/03/21 16:47: POC Glucose 196 H 10/03/21 21:23: POC Glucose 60 L 10/03/21 22:50: POC Glucose 118 H 10/04/21 03:52: POC Glucose 62 L 10/04/21 05:05: WBC 13.1 H, RBC 4.14 L, Hgb 11.7 L, Hct 36.3 L, MCV 87.7, MCH 28.3, MCHC 32.2, RDW Std Deviation 47.1 H, RDW Coeff of Chad 14.6, Plt Count 240, MPV 11.2, Immature Gran % (Auto) 1.200 H, Neut % (Auto) 70.5 H, Lymph % (Auto) 21.5, [place] % (Auto) 5.6, Eos % (Auto) 0.6, Baso % (Auto) 0.6, Absolute Neuts (auto) 9.3 H, Absolute Lymphs (auto) 2.82, Nucleated RBC % 0 10/04/21 05:05: Sodium 143, Potassium 3.0 L, Chloride 110 H, Carbon Dioxide 27.0, Anion Gap 6, BUN 22 H, Creatinine 0.96, Estim Creat Clear Calc 40.85, Est GFR (MDRD) Af Amer 75, Est GFR (MDRD) Non-Af 62, BUN/Creatinine Ratio 23.0 H, Glucose 68 L, Calcium 7.5 L 10/04/21 05:05: Magnesium 1.5 L 10/04/21 06:40: POC Glucose 58 L 10/04/21 11:29: POC Glucose 208 H Micro: Microbiology 10/04/21 13:45 Nasal Secretion SARS-CoV-2 Antigen (Rapid) - Final 10/03/21 09:01 Urine, Catheterized Urine Culture - Preliminary Streptococcus group B
[2021-10-04 16:45] LABS: Bedside Glucose 78 mg/dL (70-110)
== END 2021-10-04 18:24 | disposition skilled nursing facility (03) | DRG 638 ==
LOC: ED 09:14 → PCU 11:54
PROVIDERS: Admitting Provider Internal Medicine; Emergency Provider Student in an Organized Health Care Education/Training Program; PCP Internal Medicine; Visit Provider Internal Medicine
DX: E11.65 Type 2 diabetes mellitus with hyperglycemia (principal); N30.01 Acute cystitis with hematuria; B95.4 Other streptococcus as the cause of diseases classified elsewhere; E03.9 Hypothyroidism, unspecified; R62.7 Adult failure to thrive; W06.XXXA Fall from bed, initial encounter; I67.9 Cerebrovascular disease, unspecified; E87.6 Hypokalemia; E11.22 Type 2 diabetes mellitus with diabetic chronic kidney disease; N18.31 Chronic kidney disease, stage 3a; I12.9 Hypertensive chronic kidney disease with stage 1 through stage 4 chronic kidney disease, or unspecified chronic kidney disease; F17.210 Nicotine dependence, cigarettes, uncomplicated; L60.3 Nail dystrophy; J45.909 Unspecified asthma, uncomplicated; Z85.3 Personal history of malignant neoplasm of breast; Z79.4 Long term (current) use of insulin; Z91.14 Patient's other noncompliance with medication regimen; Z79.82 Long term (current) use of aspirin; Z82.3 Family history of stroke; Z82.49 Family history of ischemic heart disease and other diseases of the circulatory system; Z88.6 Allergy status to analgesic agent
CPT/HCPCS: 36415; 70450; 71045; 72220; 80048; 80053; 81001; 82009; 82947; 82962; 83605; 83735; 84484; 85025; 85610; 85730; 87040; 87077; 87086; 87088; 87186; 87426; 93005; 97110; 97162; 97166; 97535; 99285; J7030; J7050; A4216; J0744; J1940

== ENCOUNTER 2021-10-04 18:30 | Inpatient (IN) | payer BC, SELFPAY ==
--- NOTE | 2021-10-04 19:38 | HP.PCM_ITS ---
HPI - General General Date of Admission: 10/04/21 HPI Narrative 10/03/2021 MELODY HUGGINS, is a 66 Female who presents to [facility] Emergency Department with generalized illness. 10/03/2021 EKG sinus tachycardia, T wave inversions V5, V6, II, III. Tried to get out of bed, slid to floor. Blood sugar > 600. Sacral pain, incontinent of urine. Hypoxia, Tachycardic. Insulin given for glucose 739. Rocephin IV given for urinary tract infection, patient was on Cipro for urinary tract infection as outpatient. 10/03/2021 Admit to Hospital. A1c, IV fluids, insulin for hyperglycemia. Rocephin IV, urine culture, blood culture for urinary tract infection. PT/OT for shelter facility. 10/04/2021 Dr. Mcclelland consulted for ingrown toenails. 10/04/2021 VTach today. Low potassium repleted with IV potassium. Low magnesium repleted with IV magnesium. 10/04/2021 Admit to TCU with debility, here for rehabilitation, strengthening, prior to discharge home with . Resident's medical compliance questionable, she smokes 4 cannabis joints per day, and her medication list is long, complicated. Consider simplifying resident's medication. [facility] Medical History Arthritis Asthma Breast cancer Carpal tunnel syndrome Constipation CVA (cerebral vascular accident) Diabetes Flu vaccine need Hearing problem High blood pressure Hypertension Noncompliance Right hip pain Thyroid disease Vertigo Vision problems Home Medications cholecalciferol (vitamin D3) 2,000 unit PO DAILY 03/23/20 [History Last Taken Unknown] amlodipine 10 mg tablet 10 mg PO DAILY #90 tab 06/13/20 [Rx Last Taken Unknown] calcium carbonate 600 mg calcium (1,500 mg) tablet 600 mg PO BID #180 tab 08/16/20 [Rx Last Taken Unknown] metformin 500 mg tablet 500 mg PO BIDCM #60 tab 09/06/20 [Rx Last Taken Unknown] levothyroxine 100 mcg tablet 100 mcg PO DAILY@0600 #60 tab 07/03/21 [Rx Last Taken Unknown] anastrozole 1 mg tablet 1 mg PO DAILY #90 tab 07/04/21 [Rx Last Taken Unknown] albuterol sulfate 2 puff INHALATION Q4H PRN 10/03/21 [History Last Taken Unknown] blood sugar diagnostic [FreeStyle Test] 10/04/21 [History Last Taken Unknown] blood-glucose meter [FreeStyle System Kit] 10/04/21 [History Last Taken Unknown] carvedilol 12.5 mg PO Q12H 10/04/21 [History Last Taken Unknown] cephalexin [Keflex] 750 mg PO BID 10/04/21 [History Last Taken Unknown] clopidogrel [Plavix] 75 mg PO DAILY 10/04/21 [History Last Taken Unknown] compress.stocking,knee,reg,lrg 10/04/21 [History Last Taken Unknown] doxazosin 2 mg PO DAILY 10/04/21 [History Last Taken Unknown] insulin glargine [Basaglar KwikPen U-100 Insulin] 15 unit SUBCUT BID 10/04/21 [History Last Taken Unknown] lancets [FreeStyle Lancets] 10/04/21 [History Last Taken Unknown] lisinopril 20 mg PO DAILY 10/04/21 [History Last Taken Unknown] pen needle, diabetic [Unifine Pentips] 10/04/21 [History Last Taken Unknown] potassium chloride [Klor-Con M20] 20 meq PO BIDCM 10/04/21 [History Last Taken Unknown] Allergy/AdvReac Type Severity Reaction Status Date / Time aspirin Allergy Unknown Nausea Verified 10/03/21 08:16 albuterol AdvReac I GET VERY Verified 10/03/21 08:16 SHAKEY/HYPERVENTILATING Penicillins AdvReac Nausea/Vom/ Verified 10/03/21 08:16 Diarrhea Family History Father Cancer bone cancer Brother Heart disease Surgical History H/O mastectomy History of appendectomy History of section Social History household members: significant other Smoking Status: Current every day smoker tobacco type: cigarettes Tobacco: How many years used: 50 alcohol intake: never substance use type: marijuana and other details: smokes 4 joints a day ROS Constitutional Constitutional: Denies chills, fever(s) or weight gain ENT HEENT: Denies headache(s), nasal congestion or nasal discharge Cardiovascular Cardiovascular: Denies chest pain or palpitations Respiratory/Chest Respiratory/Chest: Denies cough, excessive phlegm production or shortness of breath with exertion Gastrointestinal Gastrointestinal: Denies abdominal pain, nausea or vomiting Genitourinary Genitourinary: Denies dysuria Musculoskeletal Musculoskeletal: Denies joint pain or joint swelling Integumentary Integumentary: Denies rash or wounds Neurologic Neurologic: Denies focal weakness, numbness or tingling Psychiatric Psychiatric: Denies anxiety, auditory hallucinations, depression, homicidal ideation or suicidal ideation Physical Exam Const alert and oriented x3 General Appearance: cooperative HEENT normocephalic Eyes PERRL and EOMs intact bilaterally Neck supple, no JVD and no carotid bruits Resp normal respiratory effort, normal air movement and clear to auscultation bilaterally Cardio regular rate and regular rhythm GI normal to inspection, nondistended, normoactive bowel sounds, non-tender and non-distended Extremity normal capillary refill General Extremity: Negative for edema Skin no rashes or lesions noted General Skin Exam: no breakdown Psych affect normal Appearance: appropriate Results Lab / Micro Data Result Diagrams: 10/05/21 07:10 10/05/21 07:10 Assessment & Plan Assessment/Plan (1) Debility: (2) Hyperglycemia: (3) Diabetes mellitus: (4) Acute kidney injury: (5) Dehydration: (6) Urinary tract infection: (7) Noncompliance w/medication treatment due to intermit use of medication: (8) Cannabis abuse: (9) Osteoporosis: (10) Hypertension: (11) Vitamin D deficiency: (12) Hyperlipidemia: (13) Stroke: (14) Depression: (15) Insomnia: (16) Appetite loss: (17) Hypomagnesemia: (18) Hypokalemia: (19) Muscle spasm: (20) Hypothyroidism: (21) Breast cancer: PLAN: 66 year old female with below past medical history hospitalized for hyperglycemia, urinary tract infection, acute kidney injury, dehydration, complicated by vtach, hypokalemia, hypomagnesemia, admitted to TCU with dhiraj montanez, here for rehabilitation, strengthening, prior to discharge home with significant other. * Debility - PT/OT. * Pain - Tylenol 1000mg q6h prn pain (1-10). * Bowel - Senna/colace 1 tablet bid, Dulcolax 10mg daily prn. * Adult immunization - Administer prevnar 13, pneumovax 23, fluzone, covid19 vaccine as appropriate. * DVT prophylaxis - Lovenox 40mg sc daily. * Shortness of breath - Albuterol MDI 2 puffs Q4H prn. * Hypertension - Coreg 12.5mg q12h, Lisinopril 20mg daily, Amlodipine 10mg daily, Doxazosin 2mg daily. * Breast cancer - Anastrozole 1mg daily. * Calcium deficiency - Calcium 500mg bid. * Urinary tract infection - Keflex 750mg bid thru 10/09/2021. * Vitamin D deficiency - D3 50mcg daily. * Stroke - Plavix 75mg daily. * Diabetes Mellitus II - Metformin 500mg bidcm, Lantus 15 units bid. * Hypothyroidism - Levothyroxine 100mcg daily. * Hypokalemia - KCL 20meq bidcm. * Cannabis abuse - I asked her if she would consider stopping pot smoking, currently smokes 4 joints per day, I let her know it is difficult for her to care for herself when she is high all the time.
[2021-10-04 19:49] VITALS: BMI 26.7
[2021-10-04 20:11] VITALS: BP 119/80; TEMP 36.9
[2021-10-04 20:24] VITALS: PULSE 101; RESP 14; O2SAT 93
[2021-10-04] MEDS: Senna/Docusate Sodium 1 Tablet PO (22:52)
[2021-10-04] MEDS: Acetaminophen 500 MG Tablet 1000 MG PO (22:52)
[2021-10-04 23:45] LABS: Bedside Glucose 187 mg/dL (70-110)
[2021-10-05] MEDS: amLODIPine 10 MG Tablet PO (04:57)
[2021-10-05] MEDS: Menthol/Lanolin/Calamine/Znox 113 GM Tube 1 APPLIC TOPICAL ×2 (04:57→18:20)
[2021-10-05] MEDS: Anastrozole 1 MG TABLET PO (04:57)
[2021-10-05] MEDS: Clopidogrel Bisulfate 75 MG Tablet PO (04:58)
[2021-10-05] MEDS: Levothyroxine 100 MCG Tablet PO (04:58)
[2021-10-05] MEDS: Cephalexin 250 MG Capsule 750 MG PO ×2 (04:58→18:19)
[2021-10-05] MEDS: Lisinopril 20 MG Tablet PO (04:58)
[2021-10-05] MEDS: Cholecalciferol (VIT D3) 25 MCG TABLET (1,000 UNITS) 50 MCG PO (04:58)
[2021-10-05] MEDS: Carvedilol 12.5 MG Tablet PO ×2 (04:59→18:19)
[2021-10-05] MEDS: Doxazosin 1 MG Tablet 2 MG PO (04:59)
[2021-10-05] MEDS: Nystatin Powder 15gm Bottle 1 APPLIC TOPICAL ×2 (05:00→18:20)
[2021-10-05] MEDS: Senna/Docusate Sodium 1 Tablet PO ×2 (05:00→18:20)
[2021-10-05] MEDS: Enoxaparin 40 MG/0.4 ML Syringe SC (05:00)
[2021-10-05 06:01] LABS: Bedside Glucose 188 mg/dL (70-110)
--- NOTE | 2021-10-05 06:30 | NURSING ---
Pt alert and oriented. Cooperative with care. Meds taken without difficulty. IV flushed easily.
[2021-10-05 07:39] LABS: Absolute Lymphocyte Count 2.47 X10^3/uL (0.83-4.51); Absolute Neutrophil Count 8.1 X10^3/uL (2.0-7.7); Basophil% 0.9 % (0-1); Eosinophil# 0.14 X10^3/uL; Eosinophils% 1.2 % (0-5); Hemoglobin 12.1 g/dL (12.0-15.0); Lymphocyte # 2.47 X10^3/ul (0.83-4.51); Lymphocyte % 21.3 % (19-41); Mean Corp Hgb Conc 32.7 g/dL (32-36); Mean Corpuscular Hgb 28.9 pg (27.0-32.0); Mean Corpuscular Volume 88.3 fL (81-99); Mean Platelet Vol. 10.9 fl (6.2-12.0); Monocyte# 0.65 X10^3/uL; Monocyte% 5.6 % (0-10); NRBC Flagged by Analyzer 0 % (0-5); Neutrophil # 8.06 X10^3/uL (2.7-7.7); Neutrophil % 69.7 % (47-70); Platelet Count 224 K/mm3 (150-450); RBC Distribution Width CV 15.5 % (11.6-14.6); RBC Distribution Width SD 49.6 fl (35.1-43.9); Red Blood Count 4.19 M/mm3 (4.2-5.4); White Blood Count 11.6 K/mm3 (4.4-11.0)
[2021-10-05 08:17] LABS: Anion Gap 5 (5-15); BUN 20 mg/dL (7-18); Calcium,Total 7.8 mg/dL (8.5-10.1); Chloride 110 mmol/L (98-107); Creatinine, Serum 1.11 mg/dL (0.55-1.02); EST Glomerular Filtration Rate 52 mL/min (>60); Est Glom Filt Rate - Afr Amer 63 mL/min (>60); Estimated Creatinine Clearance 47.98 ml/min; Glucose 194 mg/dL (74-106); Potassium 3.7 mmol/L (3.5-5.1); Sodium Level 138 mmol/L (136-145)
[2021-10-05] MEDS: metFORMIN HCl 500 MG Tablet PO ×2 (08:20→18:19)
[2021-10-05] MEDS: Potassium Chloride Oral Tablet 20 MEQ PO ×2 (08:21→18:18)
[2021-10-05] MEDS: Calcium (Elemental) 500 MG Tablet PO ×2 (08:21→18:18)
[2021-10-05] MEDS: Acetaminophen 500 MG Tablet 1000 MG PO (08:21)
[2021-10-05] MEDS: Baclofen 10 MG Tablet PO (08:51)
[2021-10-05 10:46] LABS: Bedside Glucose 300 mg/dL (70-110)
[2021-10-05] MEDS: Tuberculin,Purif.prot.deriv. 50 TU/ML Vial 0.1 ML ID (12:05)
[2021-10-05 13:10] VITALS: PULSE 98; RESP 16; O2SAT 92
[2021-10-05 15:04] VITALS: BP 129/71; PULSE 78; RESP 18; TEMP 36.3; O2SAT 90
[2021-10-05 16:41] LABS: Bedside Glucose 323 mg/dL (70-110)
--- NOTE | 2021-10-05 18:02 | NURSING ---
Pt Blood Sugar 323 Dr. Barker updated no new orders at this time.
[2021-10-05 21:31] LABS: Bedside Glucose 295 mg/dL (70-110)
[2021-10-06] MEDS: Acetaminophen 500 MG Tablet 1000 MG PO ×2 (02:45→11:56)
[2021-10-06] MEDS: 0.9% Saline Lock 10 ML Syringe IV (05:56)
[2021-10-06] MEDS: Levothyroxine 100 MCG Tablet PO (06:04)
[2021-10-06] MEDS: amLODIPine 10 MG Tablet PO (06:04)
[2021-10-06] MEDS: Nystatin Powder 15gm Bottle 1 APPLIC TOPICAL ×2 (06:04→18:10)
[2021-10-06] MEDS: Cephalexin 250 MG Capsule 750 MG PO ×2 (06:04→18:08)
[2021-10-06] MEDS: Senna/Docusate Sodium 1 Tablet PO ×2 (06:04→18:08)
[2021-10-06] MEDS: Lisinopril 20 MG Tablet PO (06:04)
[2021-10-06] MEDS: Carvedilol 12.5 MG Tablet PO ×2 (06:04→18:08)
[2021-10-06] MEDS: Baclofen 10 MG Tablet PO ×2 (06:04→18:22)
[2021-10-06] MEDS: Doxazosin 1 MG Tablet 2 MG PO (06:04)
[2021-10-06] MEDS: Enoxaparin 40 MG/0.4 ML Syringe SC (06:04)
[2021-10-06] MEDS: Cholecalciferol (VIT D3) 25 MCG TABLET (1,000 UNITS) 50 MCG PO (06:04)
[2021-10-06] MEDS: Anastrozole 1 MG TABLET PO (06:04)
[2021-10-06] MEDS: Clopidogrel Bisulfate 75 MG Tablet PO (06:04)
[2021-10-06] MEDS: Menthol/Lanolin/Calamine/Znox 113 GM Tube 1 APPLIC TOPICAL ×2 (06:05→18:09)
[2021-10-06 06:17] VITALS: BP 132/87; PULSE 79
[2021-10-06 06:45] LABS: Bedside Glucose 257 mg/dL (70-110)
[2021-10-06] MEDS: metFORMIN HCl 500 MG Tablet PO ×2 (09:38→18:08)
[2021-10-06] MEDS: Calcium (Elemental) 500 MG Tablet PO ×2 (09:38→18:08)
[2021-10-06] MEDS: Potassium Chloride Oral Tablet 20 MEQ PO ×2 (09:39→18:08)
[2021-10-06 11:40] LABS: Bedside Glucose 434 mg/dL (70-110)
[2021-10-06] MEDS: Insulin Lispro 100 UNIT/ML INSULN.PEN 7 UNIT SC ×2 (11:50→18:07)
[2021-10-06 15:05] VITALS: BP 108/67; PULSE 92; RESP 14; TEMP 36; O2SAT 92
--- NOTE | 2021-10-06 15:18 | NURSING ---
Patient, and son informed of a covid patient on unit.
[2021-10-06 16:25] LABS: Bedside Glucose 264 mg/dL (70-110)
[2021-10-06 22:06] LABS: Bedside Glucose 181 mg/dL (70-110)
[2021-10-06 22:41] VITALS: PULSE 103; RESP 16; O2SAT 96
--- NOTE | 2021-10-06 22:41 | NURSING ---
Nicotine patch dated 10/04/21 was removed from Right deltoid by this Nurse.
--- NOTE | 2021-10-06 23:32 | NURSING ---
Pt requested nursing staff fill out menus for tomorrow.
--- NOTE | 2021-10-06 23:46 | NURSING ---
Addendum entered by Janeen Xiong 10/07/21 18:44: Late Entry-Nicotine removed from Right deltoid dated 10/04. Original Note: Groin and buttocks has rash, very yeasty, excoriated, and shearing noted. Questionable blisters verses pustules. Moderate amount yellow thick, clumps in vaginal area. Also noted yellowish colored drainage from anus area. PeriCare given by this nurse with warm water and several wash cloths. Applied Aloevesta cream. Will leave message for Dr. Barker.
--- NOTE | 2021-10-07 01:14 | NURSING ---
Patient given shower at this time by this Nurse. Nails cut and cleaned on bilateral hands. Nits and lice noted in hair. RN notified and called Dr. Barker. New order for Nix to treat hair.
[2021-10-07] MEDS: Permethrin 1% 1 APPLIC Bottle TOPICAL (05:23)
[2021-10-07] MEDS: Cholecalciferol (VIT D3) 25 MCG TABLET (1,000 UNITS) 50 MCG PO (05:23)
[2021-10-07] MEDS: Doxazosin 1 MG Tablet 2 MG PO (05:23)
[2021-10-07] MEDS: Cephalexin 250 MG Capsule 750 MG PO (05:24)
[2021-10-07] MEDS: Lisinopril 20 MG Tablet PO (05:24)
[2021-10-07] MEDS: Senna/Docusate Sodium 1 Tablet PO (05:24)
[2021-10-07] MEDS: amLODIPine 10 MG Tablet PO (05:24)
[2021-10-07] MEDS: Levothyroxine 100 MCG Tablet PO (05:24)
[2021-10-07] MEDS: Enoxaparin 40 MG/0.4 ML Syringe SC (05:24)
[2021-10-07] MEDS: Anastrozole 1 MG TABLET PO (05:24)
[2021-10-07] MEDS: Carvedilol 12.5 MG Tablet PO (05:24)
[2021-10-07] MEDS: Clopidogrel Bisulfate 75 MG Tablet PO (05:24)
[2021-10-07] MEDS: Clotrimazole/Betamethasone 1 Tube 1 APPLIC TOPICAL (05:27)
[2021-10-07] MEDS: Baclofen 10 MG Tablet PO (05:31)
[2021-10-07 06:25] LABS: Bedside Glucose 131 mg/dL (70-110)
--- NOTE | 2021-10-07 06:31 | RAD_ITS ---
STUDY: X-RAY - ABDOMEN/PELVIS REASON FOR EXAM: Female, 66 years old. Abdominal distention w/diarrhea TECHNIQUE: Frontal view COMPARISON: None. FINDINGS: There is an unremarkable bowel gas pattern. There is no demonstrated free abdominal air. The visualized liver, spleen and kidneys are grossly normal in size and morphology. Normal soft tissue structures. Status post ORIF of the right femur. RAD/Abdomen Single View IMPRESSION: No acute pathology of the abdomen and pelvis. Electronically Signed: Cruz Negrete DO at 8:29 EST Tel [phone], Service support ,
[2021-10-07] MEDS: Insulin Lispro 100 UNIT/ML INSULN.PEN 7 UNIT SC (06:42)
[2021-10-07] MEDS: metFORMIN HCl 500 MG Tablet PO (08:21)
[2021-10-07] MEDS: Potassium Chloride Oral Tablet 20 MEQ PO (08:21)
[2021-10-07] MEDS: Calcium (Elemental) 500 MG Tablet PO (08:22)
[2021-10-07] MEDS: Glucagon 1 MG/ML Syringe IM (11:24)
--- NOTE | 2021-10-07 11:27 | NURSING ---
Addendum entered by Lauren Brandt 10/07/21 11:44: Nik aware of N.O. and clinical situation, Pt reassessed and BS 109 at this time, pt currently sitting up and eating lunch and is back to baseline cognitively Original Note: Blood sugar 37 prior to Lunch, Staff gave pt orange juice with sugar in it and tried to get pt to eat some peanut butter. Pt lethargic and hard to arouse. Pt needed a lot of encouragement to take anything oral, Dr. Barker updated and N.O. Glucagon 1mg IM x1 dose and d/c humalog. Glucagon administered to left thigh
[2021-10-07 11:46] LABS: Bedside Glucose 109 mg/dL (70-110)
--- NOTE | 2021-10-07 12:57 | NURSING ---
Addendum entered by Lauren Brandt 10/07/21 13:20: Pt's dressed in new gown and wheeled to room 2 vie shower chair and immediately assisted into shower and washed by staff. Pt's belongings were left in old room and door taped off to control spread. Pt in contact precautions Original Note: House Keeping found bed bug on pt's floor while cleaning. Insect taken to EVS and confirmed to be a bed bug. Cullen pt's , and pt updated. Pt stated she had bed bugs in the past
[2021-10-07 15:26] LABS: Bedside Glucose 185 mg/dL (70-110)
[2021-10-07 15:50] VITALS: BP 118/78; PULSE 75; RESP 16; TEMP 36.6; O2SAT 90
[2021-10-07 16:30] LABS: Bedside Glucose 173 mg/dL (70-110)
--- NOTE | 2021-10-07 17:32 | NURSING ---
Pt refusing to eat dinner and all of her 6pm medications despite multiple attempts, and encouragement, pt does not want staff to order her anything else. Pt states i'm not hungry, I do not want any medication, I am ready to
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
[2021-10-07 21:21] LABS: Bedside Glucose 69 mg/dL (70-110)
[2021-10-07 22:13] VITALS: BP 139/98; PULSE 119; RESP 16; O2SAT 93
[2021-10-07 22:16] VITALS: TEMP 37.1
[2021-10-07 22:45] LABS: Bedside Glucose 79 mg/dL (70-110)
[2021-10-07] MEDS: Dext 5%-0.45% NS 1,000 ML 75 ML IV (22:58)
--- NOTE | 2021-10-07 23:42 | NURSING ---
Patient continues to refuse care and a snack. Dr. Barker updated. New orders for Palliative consult and Dextrose 5% in 45% NS. 22 gauge started in right AC. Flushed with 10cc Normal Saline. secured with tegaderm. Patient tolerated well.
--- NOTE | 2021-10-08 00:02 | NURSING ---
Attempted to call consult to [facility]iative staff. Voicemail is not identifiable and no message left. Will report to oncoming nurse.
[2021-10-08 06:25] LABS: Bedside Glucose 121 mg/dL (70-110)
[2021-10-08] MEDS: Cephalexin 250 MG Capsule 750 MG PO ×2 (06:48→18:00)
[2021-10-08] MEDS: Carvedilol 12.5 MG Tablet PO ×2 (06:48→18:00)
[2021-10-08] MEDS: Doxazosin 1 MG Tablet 2 MG PO (06:48)
[2021-10-08] MEDS: Anastrozole 1 MG TABLET PO (06:48)
[2021-10-08] MEDS: Enoxaparin 40 MG/0.4 ML Syringe SC (06:49)
[2021-10-08] MEDS: amLODIPine 10 MG Tablet PO (06:51)
[2021-10-08] MEDS: Clopidogrel Bisulfate 75 MG Tablet PO (06:52)
[2021-10-08] MEDS: Cholecalciferol (VIT D3) 25 MCG TABLET (1,000 UNITS) 50 MCG PO (06:52)
[2021-10-08] MEDS: Lisinopril 20 MG Tablet PO (06:52)
[2021-10-08] MEDS: Levothyroxine 100 MCG Tablet PO (06:53)
[2021-10-08] MEDS: Clotrimazole/Betamethasone 1 Tube 1 APPLIC TOPICAL ×2 (06:56→18:01)
[2021-10-08 07:02] VITALS: BP 142/98; PULSE 99
--- NOTE | 2021-10-08 07:02 | NURSING ---
Nicotine patch removed from left deltoid and new one placed on right deltoid.
[2021-10-08] MEDS: Potassium Chloride Oral Tablet 20 MEQ PO ×2 (08:22→17:59)
[2021-10-08] MEDS: metFORMIN HCl 500 MG Tablet PO ×2 (08:22→17:59)
[2021-10-08] MEDS: Calcium (Elemental) 500 MG Tablet PO ×2 (08:23→18:00)
[2021-10-08 09:26] VITALS: PULSE 72; RESP 18; O2SAT 90
[2021-10-08] MEDS: Baclofen 10 MG Tablet PO (09:43)
--- NOTE | 2021-10-08 10:06 | NURSING ---
DR CRANDALL UPDATED, MULTIPLE COIL WINDER REPORTED THAT PT EMOTIONAL AND DEPRESSED, TEARFUL ABOUT HISTORY OF SON COMMITTING SUICIDE. NEW ORDER CELEXA 10MG
[2021-10-08 10:45] LABS: Bedside Glucose 296 mg/dL (70-110)
--- NOTE | 2021-10-08 11:32 | NURSING ---
Entomology Professor Note: Upon entering room to introduce self, resident immediately became tearful and stated that she feels so depressed. Offered support and listening. Res states that she is depressed because her son of suicide in February 2020. Res states that he was unable to work or pay child support and was very depressed. Offered her information on local support group for families who have lost loved ones to suicide. Res states that she now lives w/ , another son, his friend and one other person. Unable to identify any interests at this time. Will refer to Manifold Operator and PROJECT GEOPHYSICIST.
[2021-10-08] MEDS: Dext 5%-0.45% NS 1,000 ML 75 ML IV (11:51)
[2021-10-08] MEDS: Citalopram 10 MG Tablet PO (12:14)
--- NOTE | 2021-10-08 15:13 | PT ---
Spoke with pt's and updated him on pt's progress with therapy today. Pt's stated she needs to be motivated at times. Pt's thankful for update.
--- NOTE | 2021-10-08 15:38 | PHA.CONS1_ITS ---
Progress Note - Pharmacy Subjective: TCU Admission Objective: Allergies aspirin Allergy (Unknown, Verified 10/03/21 08:16) Nausea albuterol Adverse Reaction (Verified 10/03/21 08:16) I GET VERY SHAKEY/HYPERVENTILATING Penicillins Adverse Reaction (Verified 10/03/21 08:16) Nausea/Vom/Diarrhea Current Medications Generic Name Dose Route Start Last Admin Trade Name Ariesq PRN Reason Stop Dose Admin Acetaminophen 1,000 mg 10/04/21 20:08 10/06/21 11:56 Acetaminophen 500 Mg Tablet PO 1,000 mg Q6H PRN PRN Administration Pain Score 1-10 Albuterol Sulfate 2 puff 10/04/21 21:25 Albuterol Sulfate 8 Gm Inhaler (60 Puffs) INHALATION Q4H PRN PRN SHORTNESS OF BREATH Amlodipine Besylate 10 mg 10/05/21 06:00 10/08/21 06:51 Amlodipine 10 Mg Tablet PO 10 mg DAILY VANNESSA Administration Anastrozole 1 mg 10/05/21 06:00 10/08/21 06:48 Anastrozole 1 Mg Tablet PO 1 mg DAILY VANNESSA Administration Baclofen 10 mg 10/05/21 08:03 10/08/21 09:43 Baclofen 10 Mg Tablet PO 10 mg TID PRN Administration MUSCLE SPASM Bisacodyl 10 mg 10/04/21 20:08 Bisacodyl 5 Mg Tablet PO DAILY PRN PRN Constipation Calamine/Phenol 1 applic 10/05/21 06:00 10/08/21 06:49 Menthol/Lanolin/Calamine/Znox 113 Gm Tube TOPICAL Not Given BID [facility] Protocol Calcium Carbonate 500 mg 10/05/21 08:00 10/08/21 08:23 Calcium (Elemental) 500 Mg Tablet PO 500 mg BIDCM VANNESSA Administration Carvedilol 12.5 mg 10/05/21 06:00 10/08/21 06:48 Carvedilol 12.5 Mg Tablet PO 12.5 mg Q12 VANNESSA Administration Cephalexin 750 mg 10/05/21 06:00 10/08/21 06:48 Cephalexin 250 Mg Capsule PO 10/09/21 23:59 750 mg BID VANNESSA Administration Cholecalciferol 50 mcg 10/05/21 06:00 10/08/21 06:52 Cholecalciferol (Vit D3) 25 Mcg Tablet (1,000 Units) PO 50 mcg DAILY VANNESSA Administration Citalopram Hydrobromide 10 mg 10/08/21 11:00 10/08/21 12:14 Citalopram 10 Mg Tablet PO 10 mg DAILY VANNESSA Administration Clopidogrel Bisulfate 75 mg 10/05/21 06:00 10/08/21 06:52 Clopidogrel Bisulfate 75 Mg Tablet PO 75 mg DAILY VANNESSA Administration Clotrimazole 1 applic 10/07/21 06:00 10/08/21 06:56 Clotrimazole/Betamethasone 1 Tube TOPICAL 10/17/21 06:01 1 applic BID [facility] Administration Protocol Doxazosin Mesylate 2 mg 10/05/21 06:00 10/08/21 06:48 Doxazosin 1 Mg Tablet PO 2 mg DAILY VANNESSA Administration Enoxaparin Sodium 40 mg 10/05/21 06:00 10/08/21 06:49 Enoxaparin 40 Mg/0.4 Ml Syringe SC 40 mg DAILY@0600 VANNESSA Administration Dextrose/Sodium Chloride 1,000 mls @ 75 mls/hr 10/07/21 22:25 10/08/21 11:51 IV 75 mls/hr .[id number] VANNESSA Administration Insulin Glargine 15 units 10/05/21 06:00 10/08/21 08:24 Insulin Glargine 100 Units/Ml Pen SC 15 units BID VANNESSA Administration Levothyroxine Sodium 100 mcg 10/05/21 06:00 10/08/21 06:53 Levothyroxine 100 Mcg Tablet PO 100 mcg DAILY@0600 VANNESSA Administration Lisinopril 20 mg 10/05/21 06:00 10/08/21 06:52 Lisinopril 20 Mg Tablet PO 20 mg DAILY VANNESSA Administration Metformin HCl 500 mg 10/05/21 08:00 10/08/21 08:22 Metformin Hcl 500 Mg Tablet PO 500 mg BIDCM VANNESSA Administration Nicotine 21 mg 10/07/21 06:45 10/08/21 06:57 Nicotine 21 Mg Patch TD 21 mg DAILY [facility] Administration Nystatin 1 applic 10/05/21 06:00 10/08/21 06:50 Nystatin Powder 15gm Bottle TOPICAL Not Given BID [facility] Protocol Potassium Chloride 20 meq 10/05/21 08:00 10/08/21 08:22 Potassium Chloride Oral Tablet 20 Meq PO 20 meq BIDCM [facility] Administration Senna/Docusate Sodium 1 tablet 10/04/21 20:15 10/08/21 06:52 Senna/Docusate Sodium 1 Tablet PO Not Given BID VANNESSA Sodium Chloride 10 - 40 ml 10/04/21 20:16 10/06/21 05:56 0.9% Saline Lock 10 Ml Syringe IV 10 ml UD PRN Administration SALINE FLUSH Tuberculin PPD 0.1 ml 10/12/21 10:00 Tuberculin,Purif.Prot.Deriv. 50 Tu/Ml Vial ID 10/12/21 10:01 X1 ONE Problem List (Last Reviewed 10/04/21 @ 19:[address] Maurice Barker MD) Breast cancer (Acute) Hypothyroidism (Acute) Muscle spasm (Acute) Hypokalemia (Acute) Hypomagnesemia (Acute) Appetite loss (Acute) Insomnia (Acute) Depression (Acute) Stroke (Acute) Hyperlipidemia (Acute) Vitamin D deficiency (Acute) Hypertension (Chronic) Osteoporosis (Acute) Cannabis abuse (Acute) Noncompliance w/medication treatment due to intermit use of medication (Acute) Urinary tract infection (Acute) Dehydration (Acute) Acute kidney injury (Acute) Diabetes mellitus (Acute) Hyperglycemia (Acute) Debility (Acute) Vital Signs Temp Pulse Resp BP Pulse Ox 98.8 F 72 18 142/98 H 90 10/07/21 22:16 10/08/21 09:26 10/08/21 09:26 10/08/21 07:02 10/08/21 09:26 Oxygen Delivery Method Room Air Weight: 61.8 kg Body Mass Index (BMI) 26.7 Sodium 138 mmol/L (136-145) 10/05/21 07:10 Potassium 3.7 mmol/L (3.5-5.1) 10/05/21 07:10 Chloride 110 mmol/L (98-107) H 10/05/21 07:10 Carbon Dioxide 23.0 mmol/L (21.0-32.0) 10/05/21 07:10 Anion Gap 5 (5-15) 10/05/21 07:10 BUN 20 mg/dL (7-18) H 10/05/21 07:10 Creatinine 1.11 mg/dL (0.55-1.02) H 10/05/21 07:10 Est GFR (MDRD) Af Amer 63 mL/min (>60) 10/05/21 07:10 Est GFR (MDRD) Non-Af 52 mL/min (>60) L 10/05/21 07:10 BUN/Creatinine Ratio 18.0 RATIO (10-20) 10/05/21 07:10 Glucose 194 mg/dL (74-106) H 10/05/21 07:10 Assessment/Plan: 1. Pain: acetaminophen 1000mg PO Q6H PRN pain 1-07/15. Please continue to monitor for increased pain and PRN usage. 2. DVT prophylaxis: enoxaparin 40mg SC daily. Please continue to monitor for S/S of bleeding, hemoglobin (last 12.1g/dL), platelets (last 224,000), and renal function. 3. Hypertension: carvedilol 12.5mg PO BID, lisinopril 20mg PO daily, amlodipine 10mg PO daily and doxazosin 2mg PO daily. Please continue to monitor BP (last 142/98), HR (last 72), potassium (last 3.7mmol/L), renal function and swelling. 4. UTI: cephalexin 750mg PO BID thru 10/09/21. Please continue to monitor for urinary symptoms, diarrhea and S/S of infection. 5. Breast cancer: anastrozole 1mg PO daily. Please continue to monitor hot flashes and peripheral edema. 6. Stroke: clopidogrel 75mg PO daily. Please continue to monitor for S/S of bleeding. *7. Diabetes mellitus II: metformin 500mg PO BIDCM and insulin glargine 15units SC BID. Please consider ordering a hemoglobin A1c if clinically appropriate. Last A1c from 09/2020. Thanks. Please continue to monitor for S/S of hypoglycemia, renal function, diarrhea, and glucose (last 296 mg/dL). 8. Hypothyroidism: levothyroxine 100mcg PO daily. Please continue to monitor TSH (last 03/09/21) and S/S of hypo/hyperthyroidism. 9. Hypokalemia: potassium chloride 20mEq PO BIDCM. Please continue to monitor potassium levels. 10. Shortness of breath: albuterol MDI 2inhalations Q4H PRN shortness of breath. Please continue to monitor for S/S of SOB and PRN usage. 11. Smoking cessation: nicotine 21mg patch TD daily. Please continue to monitor HR, nicotine cravings and vivid dreams. 12. Muscle spasm: baclofen 10mg PO TID PRN muscle spasms. Please continue to monitor for muscle spasms and PRN usage. *13. Calcium/vitamin D deficiency: calcium carbonate 500mg PO BIDCM and cholecalciferol 50mcg PO daily. Please consider ordering a vitamin D level (last 01/2020) if clinically appropriate. Please continue to monitor calcium levels (last 7.8mg/dL). Psychotropic Medications: 1. Depression: citalopram 10mg PO daily. New medication, GDR not appropriate. This medication is on the BEER[facility] list for falls/fractures. Please continue to monitor for falls. Unnecessary Medications: None Bowel Regimen: senna/docusate 1T PO BID and bisacodyl 10mg PO daily daily PRN constipation. Please continue to monitor for S/S of constipation and PRN usage. Date of Note:: 10/08/21
[2021-10-08 16:00] VITALS: BP 109/70; PULSE 83; RESP 16; TEMP 36.7; O2SAT 94
[2021-10-08 16:01] LABS: Bedside Glucose 292 mg/dL (70-110)
[2021-10-08] MEDS: Senna/Docusate Sodium 1 Tablet PO (18:00)
[2021-10-08 21:36] LABS: Bedside Glucose 278 mg/dL (70-110)
[2021-10-09] MEDS: Dext 5%-0.45% NS 1,000 ML 75 ML IV ×2 (01:29→15:02)
[2021-10-09] MEDS: Acetaminophen 500 MG Tablet 1000 MG PO ×3 (01:43→18:56)
[2021-10-09 06:35] LABS: Bedside Glucose 167 mg/dL (70-110)
[2021-10-09] MEDS: Anastrozole 1 MG TABLET PO (06:51)
[2021-10-09] MEDS: Enoxaparin 40 MG/0.4 ML Syringe SC (06:51)
[2021-10-09] MEDS: Cephalexin 250 MG Capsule 750 MG PO ×2 (06:51→19:02)
[2021-10-09] MEDS: Clopidogrel Bisulfate 75 MG Tablet PO (06:52)
[2021-10-09] MEDS: Citalopram 10 MG Tablet PO (06:52)
[2021-10-09] MEDS: amLODIPine 10 MG Tablet PO (06:52)
[2021-10-09] MEDS: Levothyroxine 100 MCG Tablet PO (06:52)
[2021-10-09] MEDS: Cholecalciferol (VIT D3) 25 MCG TABLET (1,000 UNITS) 50 MCG PO (06:52)
[2021-10-09] MEDS: Doxazosin 1 MG Tablet 2 MG PO (06:52)
[2021-10-09] MEDS: Lisinopril 20 MG Tablet PO (06:52)
[2021-10-09] MEDS: Senna/Docusate Sodium 1 Tablet PO (06:52)
[2021-10-09] MEDS: Clotrimazole/Betamethasone 1 Tube 1 APPLIC TOPICAL ×2 (06:52→19:03)
[2021-10-09] MEDS: Carvedilol 12.5 MG Tablet PO ×2 (06:52→18:56)
[2021-10-09 07:16] LABS: Bedside Glucose 37 mg/dL (70-110)
[2021-10-09 07:16] LABS: Bedside Glucose 53 mg/dL (70-110)
[2021-10-09] MEDS: metFORMIN HCl 500 MG Tablet PO ×2 (08:47→18:56)
[2021-10-09] MEDS: Calcium (Elemental) 500 MG Tablet PO ×2 (08:47→18:56)
[2021-10-09] MEDS: Potassium Chloride Oral Tablet 20 MEQ PO ×2 (08:47→18:56)
--- NOTE | 2021-10-09 10:19 | CON.PCM.PA_ITS ---
Assessment & Plan Assessment/Plan (1) Hypothyroidism: (2) Hypokalemia: (3) Hypomagnesemia: (4) Depression: (5) Stroke: (6) Hypertension: (7) Osteoporosis: (8) Appetite loss: (9) Acute cystitis: (10) Debility: (11) Sacral pain: PLAN: MELODY HUGGINS, is a 66 F referred to [facility] for symptoms related to uncontrolled chronic medical conditions and pelvic pain from arthritic changes. She is agreeable to Palliative following for surveillance of chronic conditions and emotional support. Palliative will not be managing pain. Plan is as follows: 1) Sacrum pain from fall: appears to be related to arthritic changes and not acute fracture. Discussed with Dr. Barker that patient could be better managed with Pain management if needed. With Marijuana use, close surveillance would be needed with opioid medications. 2) anxiety/depression/appetite: Palliative could assess and provide regular emotional support through Palliative services. Continue Citalopram. Will monitor appetite and see if improved after counseling and emotional support. Discussed with SS. Feel that patient could benefit for long-term placement due to inability to care for herself at home and home environment. 3) Debility: PT/OT as ordered. 4) DM/Hyperthyroidism/Hx of breast CA/ Hypokalemia/Hypomagnesemia/hx of stroke: Complicates overall care, management and prognosis. Defer to PCP for specialists. Thank you for the opportunity to participate in this patient's care, please do not hesitate to contact [facility] with any further questions or concerns. Palliative direct line is [phone]. Patient is agreeable for Palliative services for chronic management support and emotional support. Understanding that pain will not be managed by Palliative. Greater than 50% of F2F visit dedicated to education and counseling of palliative care services, medications, comorbid conditions and potential assistance with management, and plan of care moving forward. Start time: 0955 AM End time: 1100 AM HPI Consult Data Date of Consult: 10/09/21 HPI Narrative HPI Narrative: MELODY HUGGINS, is a 66 F referred to [facility] for symptoms related to uncontrolled chronic medical conditions and pelvic pain from arthritic changes. Past medical history listed below: She presented to the ER on 10/03/21 with generalized weakness. She had tried to get out of bed and slid to the floor. Son reports that her right arm was shaking and she was awake. He was concerned that she was having a stroke. She was unable to get up and blood sugar was over 600 at home. complained of pain in her sacrum from the fall and was incontinent of urine after the fall. Sepsis work-up was obtained due to hypoxia and tachycardia. Patient found to have a slight white blood cell count 11.2. Hemoglobin/ hematocrit were stable. PT/INR normal. Lactic acid 0.8. Creatinine is elevated at 1.47. Patient was given a liter of normal saline given that she has dehydration and an elevated blood sugar of 739. Patient was given 20 units of insulin subcutaneously. Noted to have a urinary tract infection and was started on Cipro. Brain CT No acute intracranial hemorrhage or mass effect. Stable chronic changes. Chest Xray Nonacute portable x-ray examination of the chest. Sacrum and coccyx Xray; no fracture. She was admitted for fluid replacement, IV antibiotics and blood sugar surveillance, med compliance with plan for Dc to ECF or TCU. Dr. Mcclelland was able to d?bride toenails 1-5 bilateral using a nail nipper removing bulk. She was then transferred to TCU on 10/04/21. Patient lives with and friend in two story house with one step to enter the home. Patient states she needs assistance with ADLs. does transport. Patient was ambulating short distances with walker, but has not been currently due to pain. Patient has glucometer at home, states checks blood sugars once a day. Seen today in her TCU room speaking with SS. Alert, oriented and appropriate. Discussed Palliative care versus pain management. Feels that pain management would be a better option for patient at this time. Reports pain in sacrum/hips as 10/10 sharp pain with movement. Tylenol brings it down to a 7/10. Denies any dyspnea, chest pain, abdominal pain, nausea/vomiting or constipation. Palliative can follow patient and provide chronic disease support and emotional support counseling. Patient is agreeable for this. Tearful about drinking and family that she has lost to alcohol. [facility] Medical History Arthritis Asthma Breast cancer Carpal tunnel syndrome Constipation CVA (cerebral vascular accident) Diabetes Flu vaccine need Hearing problem High blood pressure Hypertension Noncompliance Right hip pain Thyroid disease Vertigo Vision problems Home Medications cholecalciferol (vitamin D3) 2,000 unit PO DAILY 03/23/20 [History Last Taken Unknown] amlodipine 10 mg tablet 10 mg PO DAILY #90 tab 06/13/20 [Rx Last Taken Unknown] calcium carbonate 600 mg calcium (1,500 mg) tablet 600 mg PO BID #180 tab 1 10/16/19 [Rx Last Taken Unknown] metformin 500 mg tablet 500 mg PO BIDCM #60 tab 09/06/20 [Rx Last Taken Unknown] levothyroxine 100 mcg tablet 100 mcg PO DAILY@0600 #60 tab 07/03/21 [Rx Last Taken Unknown] anastrozole 1 mg tablet 1 mg PO DAILY #90 tab 07/04/21 [Rx Last Taken Unknown] albuterol sulfate 2 puff INHALATION Q4H PRN 10/03/21 [History Last Taken Unknown] blood sugar diagnostic [FreeStyle Test] 10/04/21 [History Last Taken Unknown] blood-glucose meter [FreeStyle System Kit] 10/04/21 [History Last Taken Unknown] carvedilol 12.5 mg PO Q12H 10/04/21 [History Last Taken Unknown] cephalexin [Keflex] 750 mg PO BID 10/04/21 [History Last Taken Unknown] clopidogrel [Plavix] 75 mg PO DAILY 10/04/21 [History Last Taken Unknown] compress.stocking,knee,reg,lrg 10/04/21 [History Last Taken Unknown] doxazosin 2 mg PO DAILY 10/04/21 [History Last Taken Unknown] insulin glargine [Basaglar KwikPen U-100 Insulin] 15 unit SUBCUT BID 10/04/21 [History Last Taken Unknown] lancets [FreeStyle Lancets] 10/04/21 [History Last Taken Unknown] lisinopril 20 mg PO DAILY 10/04/21 [History Last Taken Unknown] pen needle, diabetic [Unifine Pentips] 10/04/21 [History Last Taken Unknown] potassium chloride [Klor-Con M20] 20 meq PO BIDCM 10/04/21 [History Last Taken Unknown] Allergy/AdvReac Type Severity Reaction Status Date / Time aspirin Allergy Unknown Nausea Verified 10/03/21 08:16 albuterol AdvReac I GET VERY Verified 10/03/21 08:16 SHAKEY/HYPERVENTILATING Penicillins AdvReac Nausea/Vom/ Verified 10/03/21 08:16 Diarrhea Family History Father Cancer bone cancer Brother Heart disease Surgical History H/O mastectomy History of appendectomy History of section Social History household members: significant other Smoking Status: Current every day smoker tobacco type: cigarettes Tobacco: How many years used: 50 alcohol intake: never substance use type: marijuana and other details: smokes 4 joints a day ROS Constitutional Constitutional: Denies fatigue, headache(s) or lethargy Cardiovascular Cardiovascular: Denies abdominal pain, chest pain, cyanosis, dyspnea at rest or dyspnea on exertion Respiratory/Chest Respiratory/Chest: Denies change in mental status, chest tightness, cough or dyspnea on exertion Gastrointestinal Gastrointestinal: Denies abdominal pain, change in bowel habits, constipation or diarrhea Musculoskeletal Musculoskeletal: Reports difficulty walking, joint pain, joint stiffness and muscle weakness Neurologic Neurologic: Denies abnormal speech, behavior changes or confusion Physical Exam Const alert, oriented x3 and no apparent distress General Appearance: cooperative Nutritional Appearance: obese HEENT normocephalic and head/scalp atraumatic Eyes EOMs intact bilaterally and conjunctivae normal Neck full ROM Resp normal respiratory effort and normal air movement Effort and Inspection: able to speak in complete sentences Auscultation: clear to auscultation bilaterally Cardio regular rate and regular rhythm GI Auscultation: normoactive bowel sounds Palpation: soft Extremity normal to inspection and no pedal edema Skin no rashes or lesions noted Neuro oriented x3, CN's II-XII intact bilaterally, moves all extremities, no focal motor deficits and no sensory deficits noted Psych Appearance: appropriate Attitude: calm Activity / Motor Behavior: appropriate eye contact Speech: normal speech
[2021-10-09 11:05] LABS: Bedside Glucose 305 mg/dL (70-110)
--- NOTE | 2021-10-09 11:57 | CASEMGMT ---
Social Work SW met with pt and completed psychosocial assessment. SW reviewed code status and assisted pt in completing MOLST form. PT wishes for full code with intubation. MOLST communicated to physician and placed in pt chart. Physician requesting Palliative referral and referral made. Palliative saw pt today and will follow up with pt at time of discharge. SW explained [employer] and that NRD is 11/4 and continued stay is not guaranteed. SW also discussed possible need for SNF at time of discharge and pt is clear that she refuses SNF placement. SW spoke with pt regarding home situation and she denies any problems at this time. Pt continues to deal with of son in 2020 and admits she is depressed. Pt denies any feelings of suicide intentions. Pt recently started on anti depressant and agreeable to counseling referral at discharge and is interested in suicide support group. SW will assist with this at appropriate time. APS referral will be made at time of discharge. SW will continue to follow. SERGEY Pantoja
[2021-10-09] MEDS: Baclofen 10 MG Tablet PO (13:59)
[2021-10-09 14:44] VITALS: BP 114/68; PULSE 76; RESP 14; TEMP 36.6; O2SAT 97
[2021-10-09 16:10] LABS: Bedside Glucose 224 mg/dL (70-110)
[2021-10-09] MEDS: Nystatin Powder 15gm Bottle 1 APPLIC TOPICAL (19:02)
[2021-10-09] MEDS: Menthol/Lanolin/Calamine/Znox 113 GM Tube 1 APPLIC TOPICAL (19:12)
[2021-10-09 21:30] LABS: Bedside Glucose 219 mg/dL (70-110)
[2021-10-10] MEDS: Senna/Docusate Sodium 1 Tablet PO (04:52)
[2021-10-10] MEDS: amLODIPine 10 MG Tablet PO (04:52)
[2021-10-10] MEDS: Citalopram 10 MG Tablet PO (04:52)
[2021-10-10] MEDS: Lisinopril 20 MG Tablet PO (04:52)
[2021-10-10] MEDS: Doxazosin 1 MG Tablet 2 MG PO (04:52)
[2021-10-10] MEDS: Clopidogrel Bisulfate 75 MG Tablet PO (04:52)
[2021-10-10] MEDS: Cholecalciferol (VIT D3) 25 MCG TABLET (1,000 UNITS) 50 MCG PO (04:52)
[2021-10-10] MEDS: Anastrozole 1 MG TABLET PO (04:52)
[2021-10-10] MEDS: Carvedilol 12.5 MG Tablet PO ×2 (04:52→16:54)
[2021-10-10] MEDS: Levothyroxine 100 MCG Tablet PO (04:53)
[2021-10-10] MEDS: Dext 5%-0.45% NS 1,000 ML 75 ML IV (04:53)
[2021-10-10] MEDS: Clotrimazole/Betamethasone 1 Tube 1 APPLIC TOPICAL ×2 (04:54→16:55)
[2021-10-10] MEDS: Enoxaparin 40 MG/0.4 ML Syringe SC (04:54)
[2021-10-10 07:10] LABS: Bedside Glucose 138 mg/dL (70-110)
[2021-10-10] MEDS: Potassium Chloride Oral Tablet 20 MEQ PO ×2 (10:37→16:53)
[2021-10-10] MEDS: Acetaminophen 500 MG Tablet 1000 MG PO ×2 (10:37→16:52)
[2021-10-10] MEDS: Calcium (Elemental) 500 MG Tablet PO ×2 (10:37→16:53)
--- NOTE | 2021-10-10 10:42 | NURSING ---
Resident sleeping upon entering room. When woken up she states her pain to back is #10/10. tylenol given. Refusing speech therapy. Reports refusing breakfast due to being too tired. Encouraged to eat lunch. Will not give Glucaphage at this time. No IV fluids at this time due to Rt arm being infiltrated. Rt arm elevated. No use of Lt arm. Will check with Dr Barker on what to do with IV fluids. Family at bedside.
[2021-10-10 11:25] LABS: Bedside Glucose 135 mg/dL (70-110)
--- NOTE | 2021-10-10 11:55 | CASEMGMT ---
Social Work Plan of care meeting held with pt, pt Cullen and pt dgt Lalitha present. Pt is receiving PT/OT, Speech has attempted to evaluated but pt has refused at this time. Pt is co treated with PT/OT to maximize pt care in therapy. Pt currently Max Ax2 for bed mobility and Min Ax2 for transfers. Pain is a limiting factor during therapy. Pt encouraged to get up to chair as much as possible. Pt lives at home with her and three other individuals. Discharge plan discussed and extent of pt care needs and pt dgt Lalitha states that she is educated and willing to assist pt will all care needs. Lalitha states that Adele lives in the home and can assist with meals and cleaning but is unable to assist with personal care. Lalitha states she and another friend will come to pt home daily and stay with pt when spouse is at work and provide all needed personal care. Pt is agreeable to this plan and states he will care for pt when not at work. Pt is agreeable to this discharge plan. Pt and family not open to ECF placement. LUIS ARMANDO informed pt that insurance review date was 10/09 and continued stay is not guaranteed. Suicide support group information provided to pt and pt dgt states she feels pt would benefit from this and would take pt to meetings. LUIS ARMANDO will continue to follow for d/c planning and support. SERGEY Pantoja
--- NOTE | 2021-10-10 14:01 | NURSING ---
Resident and spouse, Cullen, notified of 3 staff members testing positive for COVID.
--- NOTE | 2021-10-10 14:23 | NURSING ---
daughter here with pt and educated on the importance of wearing surgical mask and PPE while here visiting pt and that she needs to stay in pt room. daughter has been walking halls and sitting in lobby and pt is in contact isolation d/t bed bugs/lice. daughter verbalized understanding.
[2021-10-10 14:30] VITALS: BP 102/57; PULSE 69; RESP 16; TEMP 36.3; O2SAT 91
[2021-10-10 15:50] LABS: Bedside Glucose 132 mg/dL (70-110)
[2021-10-10] MEDS: Baclofen 10 MG Tablet PO (16:52)
[2021-10-10] MEDS: Menthol/Lanolin/Calamine/Znox 113 GM Tube 1 APPLIC TOPICAL (16:55)
[2021-10-10] MEDS: Nystatin Powder 15gm Bottle 1 APPLIC TOPICAL (16:57)
[2021-10-10] MEDS: metFORMIN HCl 500 MG Tablet PO (18:31)
[2021-10-10 21:30] LABS: Bedside Glucose 137 mg/dL (70-110)
[2021-10-11] MEDS: Senna/Docusate Sodium 1 Tablet PO ×2 (05:11→18:38)
[2021-10-11] MEDS: Levothyroxine 100 MCG Tablet PO (05:11)
[2021-10-11] MEDS: Baclofen 10 MG Tablet PO ×3 (05:11→18:49)
[2021-10-11] MEDS: amLODIPine 10 MG Tablet PO (05:11)
[2021-10-11] MEDS: Carvedilol 12.5 MG Tablet PO ×2 (05:11→18:37)
[2021-10-11] MEDS: Clopidogrel Bisulfate 75 MG Tablet PO (05:11)
[2021-10-11] MEDS: Doxazosin 1 MG Tablet 2 MG PO (05:11)
[2021-10-11] MEDS: Anastrozole 1 MG TABLET PO (05:11)
[2021-10-11] MEDS: Cholecalciferol (VIT D3) 25 MCG TABLET (1,000 UNITS) 50 MCG PO (05:11)
[2021-10-11] MEDS: Enoxaparin 40 MG/0.4 ML Syringe SC (05:11)
[2021-10-11] MEDS: Lisinopril 20 MG Tablet PO (05:11)
[2021-10-11] MEDS: Acetaminophen 500 MG Tablet 1000 MG PO ×2 (05:12→18:49)
[2021-10-11] MEDS: Citalopram 10 MG Tablet PO (05:12)
[2021-10-11] MEDS: Clotrimazole/Betamethasone 1 Tube 1 APPLIC TOPICAL ×2 (05:12→18:41)
[2021-10-11 06:26] LABS: Bedside Glucose 119 mg/dL (70-110)
[2021-10-11] MEDS: metFORMIN HCl 500 MG Tablet PO ×2 (08:38→18:36)
[2021-10-11] MEDS: Calcium (Elemental) 500 MG Tablet PO ×2 (08:39→18:37)
[2021-10-11] MEDS: Potassium Chloride Oral Tablet 20 MEQ PO ×2 (08:39→18:35)
[2021-10-11 10:46] LABS: Bedside Glucose 136 mg/dL (70-110)
[2021-10-11 15:10] VITALS: BP 114/75; PULSE 62; RESP 12; TEMP 36.5; O2SAT 94
--- NOTE | 2021-10-11 15:40 | CASEMGMT ---
Social Work BIMS and PHQ-9 completed for MDS assessment. Pt expressed depressive symptoms. Attempted to get further information on interests, changes in mood, etc. Pt very monotone and not giving detailed responses. Pt has experienced great loss in the last year and mood, appetite, energy level has not improved. Pt states she does not have anyone to talk to or seek support. Offered counseling at [facility]. Pt agreeable for SW to make appt to follow up. Pt remains interested in attending Suicide Support Group at [facility]. Pt was started on antidepressant at admission. No changes to mood noted thus far. Pt agreed to smaller portions so meals are not as overwhelming to her. Nursing notified. Pt expressed her main interest and enjoyment is watching TV. Pt stated she was getting tired and asked to be done talking with SW. SW offered continued support throughout stay and complied. Will continue to follow. Denisha Cadet, CARIE REVELESW
[2021-10-11 16:05] LABS: Bedside Glucose 163 mg/dL (70-110)
[2021-10-11] MEDS: Nystatin Powder 15gm Bottle 1 APPLIC TOPICAL (18:41)
[2021-10-11 21:16] LABS: Bedside Glucose 195 mg/dL (70-110)
[2021-10-11 21:57] VITALS: PULSE 64; RESP 16; O2SAT 94
--- NOTE | 2021-10-12 03:51 | NURSING ---
Patient continues to have yellowish vaginal discharge and discomfort. Message left for Dr. Barker.
[2021-10-12] MEDS: Lisinopril 20 MG Tablet PO (05:18)
[2021-10-12] MEDS: Anastrozole 1 MG TABLET PO (05:18)
[2021-10-12] MEDS: Senna/Docusate Sodium 1 Tablet PO (05:18)
[2021-10-12] MEDS: Clopidogrel Bisulfate 75 MG Tablet PO (05:18)
[2021-10-12] MEDS: Citalopram 10 MG Tablet PO (05:19)
[2021-10-12] MEDS: Cholecalciferol (VIT D3) 25 MCG TABLET (1,000 UNITS) 50 MCG PO (05:19)
[2021-10-12] MEDS: Levothyroxine 100 MCG Tablet PO (05:19)
[2021-10-12] MEDS: Carvedilol 12.5 MG Tablet PO ×2 (05:19→17:38)
[2021-10-12] MEDS: amLODIPine 10 MG Tablet PO (05:19)
[2021-10-12] MEDS: Enoxaparin 40 MG/0.4 ML Syringe SC (05:19)
[2021-10-12] MEDS: Doxazosin 1 MG Tablet 2 MG PO (05:19)
[2021-10-12] MEDS: Acetaminophen 500 MG Tablet 1000 MG PO ×2 (05:25→17:35)
[2021-10-12] MEDS: Clotrimazole/Betamethasone 1 Tube 1 APPLIC TOPICAL ×2 (05:28→17:36)
--- NOTE | 2021-10-12 05:30 | NURSING ---
Old Nicotine patch removed from Right shoulder and wasted. New patch placed on left upper chest.
[2021-10-12 05:31] VITALS: BP 125/82; PULSE 64
[2021-10-12 06:01] LABS: Absolute Lymphocyte Count 2.77 X10^3/uL (0.83-4.51); Absolute Neutrophil Count 8.4 X10^3/uL (2.0-7.7); Basophil# 0.09 X10^3/uL; Basophil% 0.7 % (0-1); Eosinophil# 0.05 X10^3/uL; Eosinophils% 0.4 % (0-5); Hematocrit 39.6 % (37-47); Lymphocyte # 2.77 X10^3/ul (0.83-4.51); Lymphocyte % 22.9 % (19-41); Mean Corp Hgb Conc 30.3 g/dL (32-36); Mean Corpuscular Hgb 28.2 pg (27.0-32.0); Mean Corpuscular Volume 93.2 fL (81-99); Mean Platelet Vol. 11.5 fl (6.2-12.0); Monocyte# 0.53 X10^3/uL; Monocyte% 4.4 % (0-10); NRBC Flagged by Analyzer 0 % (0-5); Neutrophil # 8.41 X10^3/uL (2.7-7.7); Neutrophil % 69.7 % (47-70); Platelet Count 332 K/mm3 (150-450); RBC Distribution Width CV 15.6 % (11.6-14.6); RBC Distribution Width SD 53.3 fl (35.1-43.9); Red Blood Count 4.25 M/mm3 (4.2-5.4); White Blood Count 12.1 K/mm3 (4.4-11.0)
[2021-10-12 06:20] LABS: Bedside Glucose 149 mg/dL (70-110)
[2021-10-12 06:25] LABS: Anion Gap 7 (5-15); BUN 32 mg/dL (7-18); BUN/Creat Ratio 22.2 RATIO (10-20); Calcium,Total 8.7 mg/dL (8.5-10.1); Chloride 111 mmol/L (98-107); Creatinine, Serum 1.44 mg/dL (0.55-1.02); EST Glomerular Filtration Rate 39 mL/min (>60); Est Glom Filt Rate - Afr Amer 47 mL/min (>60); Estimated Creatinine Clearance 36.99 ml/min; Glucose 141 mg/dL (74-106); Potassium 4.8 mmol/L (3.5-5.1); Sodium Level 140 mmol/L (136-145)
[2021-10-12] MEDS: metFORMIN HCl 500 MG Tablet PO ×2 (07:57→17:37)
[2021-10-12] MEDS: Potassium Chloride Oral Tablet 20 MEQ PO ×2 (07:57→17:37)
[2021-10-12] MEDS: Calcium (Elemental) 500 MG Tablet PO ×2 (07:57→17:38)
--- NOTE | 2021-10-12 08:10 | RAD_ITS ---
STUDY: X-RAY - PELVIS AND RIGHT HIP REASON FOR EXAM: Female, 66 years old. Pain TECHNIQUE: 3 views of the pelvis and hip. COMPARISON: None. FINDINGS: There is a normal bowel gas pattern. Normal visualized soft tissue structures. There is diffuse demineralization of the osseous structures. Normal bilateral iliac wings, sacroiliac joints and visualized sacrum. Normal bilateral superior and inferior pubic rami. Normal pubic symphysis. Normal bilateral ischial tuberosities. There is right hip pinning. There is no acute fracture. Normal hip joint. RAD/HIP, UNI W/ Pelvis 2-3 Views IMPRESSION: Prior right hip pinning. No acute fracture. Demineralization. Electronically Signed: Nam Cantu MD at 11:49 EST , Service support ,
[2021-10-12] MEDS: FLUCONAZOLE 150 MG TABLET PO (10:02)
[2021-10-12] MEDS: Baclofen 10 MG Tablet PO ×2 (10:09→17:35)
[2021-10-12 10:56] LABS: Bedside Glucose 158 mg/dL (70-110)
[2021-10-12] MEDS: Tuberculin,Purif.prot.deriv. 50 TU/ML Vial 0.1 ML ID (11:46)
--- NOTE | 2021-10-12 12:13 | NURSING ---
Resident and , Cullen, notified of resident on the unit testing positive for COVID.
--- NOTE | 2021-10-12 12:13 | PT ---
Pt was min A/CGA for sit to stands from recliner. Pt needed repeated cueing to attempt standing. pt very resistive to therapy but finally agreeable after max encouragement. Spoke with pt and at length about pt's plan for when she leaves TCU. Pt and state plan is for pt to go home. asked pt how she would be able to go home if she was not able to walk. Pt did not answer. Educated pt on importance of ambulation and exercises to assist with decreasing pain and improving overall mobility.
[2021-10-12 14:52] VITALS: BP 108/63; PULSE 58; RESP 18; TEMP 36.4; O2SAT 94
[2021-10-12 14:58] VITALS: PULSE 57; RESP 16; O2SAT 93
[2021-10-12 16:01] LABS: Bedside Glucose 180 mg/dL (70-110)
[2021-10-12] MEDS: Nystatin Powder 15gm Bottle 1 APPLIC TOPICAL (17:38)
[2021-10-12 21:21] LABS: Bedside Glucose 170 mg/dL (70-110)
[2021-10-13] MEDS: Anastrozole 1 MG TABLET PO (05:11)
[2021-10-13] MEDS: Senna/Docusate Sodium 1 Tablet PO ×2 (05:11→17:06)
[2021-10-13] MEDS: Carvedilol 12.5 MG Tablet PO ×2 (05:12→17:06)
[2021-10-13] MEDS: Citalopram 10 MG Tablet PO (05:12)
[2021-10-13] MEDS: Levothyroxine 100 MCG Tablet PO (05:13)
[2021-10-13] MEDS: Enoxaparin 40 MG/0.4 ML Syringe SC (05:13)
[2021-10-13] MEDS: Clotrimazole/Betamethasone 1 Tube 1 APPLIC TOPICAL ×2 (05:13→17:07)
[2021-10-13] MEDS: Cholecalciferol (VIT D3) 25 MCG TABLET (1,000 UNITS) 50 MCG PO (05:14)
[2021-10-13] MEDS: Clopidogrel Bisulfate 75 MG Tablet PO (05:14)
[2021-10-13] MEDS: amLODIPine 10 MG Tablet PO (05:15)
[2021-10-13] MEDS: Nystatin Powder 15gm Bottle 1 APPLIC TOPICAL ×2 (05:16→17:07)
[2021-10-13] MEDS: Doxazosin 1 MG Tablet 2 MG PO (05:16)
[2021-10-13] MEDS: Lisinopril 20 MG Tablet PO (05:17)
[2021-10-13 06:30] LABS: Bedside Glucose 124 mg/dL (70-110)
[2021-10-13] MEDS: Potassium Chloride Oral Tablet 20 MEQ PO ×2 (07:32→17:06)
[2021-10-13] MEDS: Calcium (Elemental) 500 MG Tablet PO ×2 (07:32→17:06)
[2021-10-13] MEDS: metFORMIN HCl 500 MG Tablet PO ×2 (07:32→17:06)
[2021-10-13 12:16] LABS: Bedside Glucose 105 mg/dL (70-110)
[2021-10-13 14:06] VITALS: BP 114/72; PULSE 76; RESP 16; TEMP 36.1; O2SAT 95
[2021-10-13 16:56] LABS: Bedside Glucose 118 mg/dL (70-110)
[2021-10-13] MEDS: Acetaminophen 500 MG Tablet 1000 MG PO (17:05)
[2021-10-13 21:46] LABS: Bedside Glucose 146 mg/dL (70-110)
[2021-10-14] MEDS: Anastrozole 1 MG TABLET PO (06:27)
[2021-10-14] MEDS: Carvedilol 12.5 MG Tablet PO ×2 (06:28→18:33)
[2021-10-14] MEDS: Doxazosin 1 MG Tablet 2 MG PO (06:29)
[2021-10-14] MEDS: Cholecalciferol (VIT D3) 25 MCG TABLET (1,000 UNITS) 50 MCG PO (06:30)
[2021-10-14] MEDS: Levothyroxine 100 MCG Tablet PO (06:30)
[2021-10-14] MEDS: amLODIPine 10 MG Tablet PO (06:31)
[2021-10-14] MEDS: Citalopram 10 MG Tablet PO (06:32)
[2021-10-14] MEDS: Enoxaparin 40 MG/0.4 ML Syringe SC (06:32)
[2021-10-14] MEDS: Senna/Docusate Sodium 1 Tablet PO ×2 (06:33→18:34)
[2021-10-14] MEDS: Clopidogrel Bisulfate 75 MG Tablet PO (06:33)
[2021-10-14] MEDS: Lisinopril 20 MG Tablet PO (06:34)
[2021-10-14] MEDS: Menthol/Lanolin/Calamine/Znox 113 GM Tube 1 APPLIC TOPICAL (06:35)
[2021-10-14] MEDS: Nystatin Powder 15gm Bottle 1 APPLIC TOPICAL ×2 (06:36→18:36)
[2021-10-14] MEDS: Clotrimazole/Betamethasone 1 Tube 1 APPLIC TOPICAL ×2 (06:37→18:36)
[2021-10-14 07:15] LABS: Bedside Glucose 82 mg/dL (70-110)
[2021-10-14] MEDS: Potassium Chloride Oral Tablet 20 MEQ PO ×2 (09:37→18:33)
[2021-10-14] MEDS: Calcium (Elemental) 500 MG Tablet PO ×2 (09:38→18:41)
[2021-10-14] MEDS: metFORMIN HCl 500 MG Tablet PO ×2 (09:38→18:33)
[2021-10-14] MEDS: Acetaminophen 500 MG Tablet 1000 MG PO (09:42)
[2021-10-14] MEDS: Baclofen 10 MG Tablet PO (09:42)
[2021-10-14 09:56] VITALS: RESP 18
[2021-10-14 11:01] LABS: Bedside Glucose 123 mg/dL (70-110)
[2021-10-14 13:31] VITALS: BP 94/64; PULSE 58; RESP 16; TEMP 36.4
[2021-10-14 16:40] LABS: Bedside Glucose 174 mg/dL (70-110)
[2021-10-14 21:25] LABS: Bedside Glucose 190 mg/dL (70-110)
[2021-10-15] MEDS: Anastrozole 1 MG TABLET PO (05:25)
[2021-10-15] MEDS: Menthol/Lanolin/Calamine/Znox 113 GM Tube 1 APPLIC TOPICAL (05:25)
[2021-10-15] MEDS: Senna/Docusate Sodium 1 Tablet PO ×2 (05:26→17:18)
[2021-10-15] MEDS: Levothyroxine 100 MCG Tablet PO (05:26)
[2021-10-15] MEDS: Citalopram 10 MG Tablet PO (05:26)
[2021-10-15] MEDS: Doxazosin 1 MG Tablet 2 MG PO (05:27)
[2021-10-15] MEDS: Enoxaparin 40 MG/0.4 ML Syringe SC (05:27)
[2021-10-15] MEDS: Clotrimazole/Betamethasone 1 Tube 1 APPLIC TOPICAL ×2 (05:27→17:19)
[2021-10-15] MEDS: Carvedilol 12.5 MG Tablet PO ×2 (05:27→17:18)
[2021-10-15] MEDS: Clopidogrel Bisulfate 75 MG Tablet PO (05:28)
[2021-10-15] MEDS: Nystatin Powder 15gm Bottle 1 APPLIC TOPICAL ×2 (05:28→17:20)
[2021-10-15] MEDS: amLODIPine 10 MG Tablet PO (05:28)
[2021-10-15] MEDS: Lisinopril 20 MG Tablet PO (05:29)
[2021-10-15] MEDS: Cholecalciferol (VIT D3) 25 MCG TABLET (1,000 UNITS) 50 MCG PO (05:29)
[2021-10-15 06:31] LABS: Bedside Glucose 144 mg/dL (70-110)
[2021-10-15] MEDS: Potassium Chloride Oral Tablet 20 MEQ PO ×2 (07:40→17:18)
[2021-10-15] MEDS: Calcium (Elemental) 500 MG Tablet PO ×2 (07:40→17:18)
[2021-10-15] MEDS: metFORMIN HCl 500 MG Tablet PO ×2 (07:40→17:18)
[2021-10-15] MEDS: FLUCONAZOLE 150 MG TABLET PO (07:41)
[2021-10-15 10:00] VITALS: PULSE 57; RESP 16; O2SAT 94
[2021-10-15 10:55] LABS: Bedside Glucose 158 mg/dL (70-110)
--- NOTE | 2021-10-15 11:27 | NURSING ---
called in asking how patient was doing. updated that patient had refused her ADL's this morning and patient was resting at this time. requesting for patient to have head CT. expressed he thinks maybe patient had another stroke. RN updated. Message left Dr. Barker.
[2021-10-15 13:54] VITALS: BP 118/76; PULSE 76; RESP 94; TEMP 36.3
[2021-10-15 16:06] LABS: Bedside Glucose 138 mg/dL (70-110)
[2021-10-15 21:20] LABS: Bedside Glucose 139 mg/dL (70-110)
[2021-10-16] MEDS: Baclofen 10 MG Tablet PO ×2 (01:25→22:09)
[2021-10-16] MEDS: amLODIPine 10 MG Tablet PO (06:55)
[2021-10-16] MEDS: Enoxaparin 40 MG/0.4 ML Syringe SC (06:55)
[2021-10-16 06:56] LABS: Bedside Glucose 78 mg/dL (70-110)
[2021-10-16] MEDS: Lisinopril 20 MG Tablet PO (06:56)
[2021-10-16] MEDS: Cholecalciferol (VIT D3) 25 MCG TABLET (1,000 UNITS) 50 MCG PO (06:56)
[2021-10-16] MEDS: Doxazosin 1 MG Tablet 2 MG PO (06:56)
[2021-10-16] MEDS: Clopidogrel Bisulfate 75 MG Tablet PO (06:56)
[2021-10-16] MEDS: Levothyroxine 100 MCG Tablet PO (06:56)
[2021-10-16] MEDS: Anastrozole 1 MG TABLET PO (06:57)
[2021-10-16] MEDS: Citalopram 10 MG Tablet PO (06:58)
[2021-10-16] MEDS: Senna/Docusate Sodium 1 Tablet PO ×2 (06:58→17:18)
[2021-10-16] MEDS: Carvedilol 12.5 MG Tablet PO ×2 (06:58→17:18)
[2021-10-16] MEDS: Nystatin Powder 15gm Bottle 1 APPLIC TOPICAL ×2 (06:58→17:27)
[2021-10-16] MEDS: Menthol/Lanolin/Calamine/Znox 113 GM Tube 1 APPLIC TOPICAL ×2 (06:58→17:19)
[2021-10-16] MEDS: Clotrimazole/Betamethasone 1 Tube 1 APPLIC TOPICAL ×2 (06:59→21:55)
[2021-10-16] MEDS: Potassium Chloride Oral Tablet 20 MEQ PO ×2 (06:59→17:18)
[2021-10-16] MEDS: metFORMIN HCl 500 MG Tablet PO ×2 (06:59→17:18)
[2021-10-16] MEDS: Calcium (Elemental) 500 MG Tablet PO ×2 (06:59→17:18)
--- NOTE | 2021-10-16 09:26 | MDS.RN ---
Information for the mds was obtained from review of the clinical record, interview of resident, staff, and direct observation of resident's care.
--- NOTE | 2021-10-16 10:09 | NURSING ---
Insurance called for pre authorization for CT of head without contrast. Awaiting authorization. Peer to Peer needs completed with Dr. Barker and additional clinical information fax over Fax number Attn Nurse Reviewer. .
--- NOTE | 2021-10-16 10:46 | NURSING ---
faxed clinicals per insurance request for review.
--- NOTE | 2021-10-16 10:47 | NURSING ---
here and aware that clinical faxed, awaiting insurance approval for CT head. states he gonnna call them, feels its taking too long. Explained that we just got order this AM and it takes 1 -2 days sometimes longer. pt verbalized understanding. pt to get Pfizer booster today, signed consent.
[2021-10-16 11:05] LABS: Bedside Glucose 130 mg/dL (70-110)
--- NOTE | 2021-10-16 12:32 | NURSING ---
Resident and spouse updated that a staff member tested positive for COVID.
[2021-10-16 14:08] VITALS: BP 108/66; PULSE 56; RESP 18; TEMP 36.6; O2SAT 92
[2021-10-16] MEDS: COVID-19 VACC, MRNA(PFIZER)/PF 30 MCG/0.3 ML SYRINGE IM (14:35)
[2021-10-16 16:01] LABS: Bedside Glucose 155 mg/dL (70-110)
[2021-10-16 21:30] LABS: Bedside Glucose 127 mg/dL (70-110)
[2021-10-16 22:00] VITALS: PULSE 59; RESP 14; O2SAT 93
[2021-10-16] MEDS: Acetaminophen 500 MG Tablet 1000 MG PO (22:09)
[2021-10-17] MEDS: Levothyroxine 100 MCG Tablet PO (05:31)
[2021-10-17] MEDS: Enoxaparin 40 MG/0.4 ML Syringe SC (05:31)
[2021-10-17] MEDS: Anastrozole 1 MG TABLET PO (05:31)
[2021-10-17] MEDS: Citalopram 10 MG Tablet PO (05:31)
[2021-10-17] MEDS: Doxazosin 1 MG Tablet 2 MG PO (05:31)
[2021-10-17] MEDS: Lisinopril 20 MG Tablet PO (05:31)
[2021-10-17] MEDS: Carvedilol 12.5 MG Tablet PO ×2 (05:31→17:42)
[2021-10-17] MEDS: Cholecalciferol (VIT D3) 25 MCG TABLET (1,000 UNITS) 50 MCG PO (05:31)
[2021-10-17] MEDS: Clopidogrel Bisulfate 75 MG Tablet PO (05:31)
[2021-10-17] MEDS: amLODIPine 10 MG Tablet PO (05:31)
[2021-10-17] MEDS: Senna/Docusate Sodium 1 Tablet PO (05:31)
[2021-10-17] MEDS: Clotrimazole/Betamethasone 1 Tube 1 APPLIC TOPICAL (05:32)
[2021-10-17] MEDS: Nystatin Powder 15gm Bottle 1 APPLIC TOPICAL ×2 (05:33→14:00)
[2021-10-17 06:00] VITALS: BP 126/77; PULSE 58
[2021-10-17 06:41] LABS: Bedside Glucose 78 mg/dL (70-110)
[2021-10-17] MEDS: Potassium Chloride Oral Tablet 20 MEQ PO ×2 (07:51→17:42)
[2021-10-17] MEDS: metFORMIN HCl 500 MG Tablet PO ×2 (07:51→17:41)
[2021-10-17] MEDS: Calcium (Elemental) 500 MG Tablet PO ×2 (07:52→17:42)
[2021-10-17 11:15] LABS: Bedside Glucose 230 mg/dL (70-110)
[2021-10-17] MEDS: Menthol/Lanolin/Calamine/Znox 113 GM Tube 1 APPLIC TOPICAL (14:00)
[2021-10-17] MEDS: Acetaminophen 500 MG Tablet 1000 MG PO (14:03)
[2021-10-17 15:17] VITALS: BP 126/73; PULSE 68; RESP 16; TEMP 36.4; O2SAT 92
[2021-10-17 16:25] LABS: Bedside Glucose 183 mg/dL (70-110)
[2021-10-17] MEDS: Glucerna Shake 120 ML LIQUID PO (17:53)
[2021-10-17 21:16] LABS: Bedside Glucose 175 mg/dL (70-110)
[2021-10-18 05:33] VITALS: BP 129/86; PULSE 70
[2021-10-18] MEDS: Menthol/Lanolin/Calamine/Znox 113 GM Tube 1 APPLIC TOPICAL ×2 (05:36→17:21)
[2021-10-18] MEDS: Anastrozole 1 MG TABLET PO (05:36)
[2021-10-18] MEDS: Nystatin Powder 15gm Bottle 1 APPLIC TOPICAL ×2 (05:37→17:21)
[2021-10-18] MEDS: Carvedilol 12.5 MG Tablet PO ×2 (05:37→17:21)
[2021-10-18] MEDS: Citalopram 10 MG Tablet PO (05:37)
[2021-10-18] MEDS: Doxazosin 1 MG Tablet 2 MG PO (05:37)
[2021-10-18] MEDS: amLODIPine 10 MG Tablet PO (05:38)
[2021-10-18] MEDS: Lisinopril 20 MG Tablet PO (05:39)
[2021-10-18] MEDS: Cholecalciferol (VIT D3) 25 MCG TABLET (1,000 UNITS) 50 MCG PO (05:39)
[2021-10-18] MEDS: Clopidogrel Bisulfate 75 MG Tablet PO (05:39)
[2021-10-18] MEDS: Levothyroxine 100 MCG Tablet PO (05:39)
[2021-10-18] MEDS: Enoxaparin 40 MG/0.4 ML Syringe SC (05:40)
[2021-10-18 06:25] LABS: Bedside Glucose 113 mg/dL (70-110)
[2021-10-18] MEDS: FLUCONAZOLE 150 MG TABLET PO (08:35)
[2021-10-18] MEDS: Calcium (Elemental) 500 MG Tablet PO ×2 (08:35→17:21)
[2021-10-18] MEDS: metFORMIN HCl 500 MG Tablet PO ×2 (08:35→17:21)
[2021-10-18] MEDS: Glucerna Shake 120 ML LIQUID PO ×3 (08:35→17:21)
[2021-10-18] MEDS: Potassium Chloride Oral Tablet 20 MEQ PO ×2 (08:35→17:21)
[2021-10-18 11:00] LABS: Bedside Glucose 162 mg/dL (70-110)
--- NOTE | 2021-10-18 15:38 | CHAPLAIN ---
Type of Pastoral Visit ___ Initial Visit _x__ Follow-up Visit ___ On-call Visit ___ General Patient Visit ___ Spiritual Assessment ___ Family Conference ___ Bereavement ___ Rapid Response ___ Code Blue ___ Other (describe below) Pastoral Care Referral From _x__ Patient ___ Family ___ Nurse ___ Physician ___ Social Insurance Specialist ___ Hot Wort Settler ___ Other (describe below) Sacrament/Intervention _x__ Active listening ___ Anointing ___ Church ___ Bereavement ___ Communion _x__ Tessie exploration ___ _x__ Life review _x__ Prayer ___ Reconciliation ___ Sacrament of Sick _x__ Supportive presence ___ Wedding ___ Other (describe below) Pastoral Comments
[2021-10-18 16:10] LABS: Bedside Glucose 97 mg/dL (70-110)
[2021-10-18 16:34] VITALS: BP 114/60; PULSE 64; RESP 18; TEMP 36.3; O2SAT 90
[2021-10-18 21:30] LABS: Bedside Glucose 107 mg/dL (70-110)
[2021-10-18 22:25] VITALS: PULSE 56; RESP 16; O2SAT 95
[2021-10-19] MEDS: Doxazosin 1 MG Tablet 2 MG PO (05:16)
[2021-10-19] MEDS: Anastrozole 1 MG TABLET PO (05:16)
[2021-10-19] MEDS: Levothyroxine 100 MCG Tablet PO (05:17)
[2021-10-19] MEDS: Lisinopril 20 MG Tablet PO (05:17)
[2021-10-19] MEDS: Carvedilol 12.5 MG Tablet PO ×2 (05:17→17:34)
[2021-10-19] MEDS: amLODIPine 10 MG Tablet PO (05:17)
[2021-10-19] MEDS: Clopidogrel Bisulfate 75 MG Tablet PO (05:17)
[2021-10-19] MEDS: Citalopram 10 MG Tablet PO (05:17)
[2021-10-19] MEDS: Senna/Docusate Sodium 1 Tablet PO ×2 (05:17→17:33)
[2021-10-19] MEDS: Cholecalciferol (VIT D3) 25 MCG TABLET (1,000 UNITS) 50 MCG PO (05:17)
[2021-10-19] MEDS: Menthol/Lanolin/Calamine/Znox 113 GM Tube 1 APPLIC TOPICAL ×2 (05:26→17:32)
[2021-10-19] MEDS: Enoxaparin 40 MG/0.4 ML Syringe SC (05:27)
[2021-10-19] MEDS: Nystatin Powder 15gm Bottle 1 APPLIC TOPICAL ×2 (05:27→17:34)
[2021-10-19 05:28] VITALS: BP 134/83; PULSE 63; RESP 16; TEMP 37.4; O2SAT 93
[2021-10-19] MEDS: Acetaminophen 500 MG Tablet 1000 MG PO (05:32)
[2021-10-19 05:45] LABS: Absolute Neutrophil Count 4.4 X10^3/uL (2.0-7.7); Basophil# 0.07 X10^3/uL; Eosinophils% 1.5 % (0-5); Hematocrit 36.8 % (37-47); Hemoglobin 11.2 g/dL (12.0-15.0); Lymphocyte % 22.4 % (19-41); Mean Corp Hgb Conc 30.4 g/dL (32-36); Mean Corpuscular Hgb 28.1 pg (27.0-32.0); Mean Corpuscular Volume 92.2 fL (81-99); Mean Platelet Vol. 11.3 fl (6.2-12.0); Monocyte# 0.53 X10^3/uL; Monocyte% 7.9 % (0-10); NRBC Flagged by Analyzer 0 % (0-5); Neutrophil # 4.42 X10^3/uL (2.7-7.7); Neutrophil % 65.9 % (47-70); Platelet Count 292 K/mm3 (150-450); RBC Distribution Width CV 14.8 % (11.6-14.6); RBC Distribution Width SD 50.3 fl (35.1-43.9); Red Blood Count 3.99 M/mm3 (4.2-5.4); White Blood Count 6.7 K/mm3 (4.4-11.0)
[2021-10-19 06:27] LABS: Anion Gap 5 (5-15); BUN 26 mg/dL (7-18); Chloride 111 mmol/L (98-107); Creatinine, Serum 1.18 mg/dL (0.55-1.02); EST Glomerular Filtration Rate 49 mL/min (>60); Est Glom Filt Rate - Afr Amer 59 mL/min (>60); Estimated Creatinine Clearance 44.81 ml/min; Glucose 65 mg/dL (74-106); Potassium 4.4 mmol/L (3.5-5.1); Sodium Level 140 mmol/L (136-145)
[2021-10-19 06:41] LABS: Bedside Glucose 75 mg/dL (70-110)
[2021-10-19] MEDS: metFORMIN HCl 500 MG Tablet PO ×2 (07:30→17:32)
[2021-10-19] MEDS: Calcium (Elemental) 500 MG Tablet PO ×2 (07:31→17:32)
[2021-10-19] MEDS: Potassium Chloride Oral Tablet 20 MEQ PO ×2 (07:31→17:32)
[2021-10-19] MEDS: Glucerna Shake 120 ML LIQUID PO (07:31)
[2021-10-19 08:38] VITALS: PULSE 63; RESP 16; O2SAT 93
[2021-10-19 11:26] LABS: Bedside Glucose 127 mg/dL (70-110)
[2021-10-19 14:55] VITALS: BP 107/67; PULSE 76; RESP 16; TEMP 36.1; O2SAT 94
[2021-10-19 16:00] LABS: Bedside Glucose 110 mg/dL (70-110)
[2021-10-19] MEDS: Bisacodyl 5 MG Tablet 10 MG PO (17:32)
[2021-10-19 21:35] LABS: Bedside Glucose 133 mg/dL (70-110)
[2021-10-20] MEDS: Doxazosin 1 MG Tablet 2 MG PO (06:47)
[2021-10-20] MEDS: Enoxaparin 40 MG/0.4 ML Syringe SC (06:47)
[2021-10-20] MEDS: Levothyroxine 100 MCG Tablet PO (06:47)
[2021-10-20] MEDS: Potassium Chloride Oral Tablet 20 MEQ PO ×2 (06:47→17:30)
[2021-10-20] MEDS: Clopidogrel Bisulfate 75 MG Tablet PO (06:47)
[2021-10-20] MEDS: Citalopram 10 MG Tablet PO (06:47)
[2021-10-20] MEDS: Calcium (Elemental) 500 MG Tablet PO ×2 (06:47→17:30)
[2021-10-20] MEDS: Lisinopril 20 MG Tablet PO (06:47)
[2021-10-20] MEDS: Cholecalciferol (VIT D3) 25 MCG TABLET (1,000 UNITS) 50 MCG PO (06:47)
[2021-10-20] MEDS: amLODIPine 10 MG Tablet PO (06:47)
[2021-10-20] MEDS: metFORMIN HCl 500 MG Tablet PO ×2 (06:47→17:29)
[2021-10-20] MEDS: Anastrozole 1 MG TABLET PO (06:47)
[2021-10-20] MEDS: Carvedilol 12.5 MG Tablet PO ×2 (06:47→17:29)
[2021-10-20] MEDS: Nystatin Powder 15gm Bottle 1 APPLIC TOPICAL ×2 (06:48→17:30)
[2021-10-20] MEDS: Menthol/Lanolin/Calamine/Znox 113 GM Tube 1 APPLIC TOPICAL ×2 (06:48→17:30)
[2021-10-20 06:55] VITALS: BP 124/75; PULSE 66
[2021-10-20 06:56] LABS: Bedside Glucose 78 mg/dL (70-110)
[2021-10-20 11:00] LABS: Bedside Glucose 98 mg/dL (70-110)
[2021-10-20 14:46] VITALS: BP 125/70; PULSE 58; RESP 15; TEMP 36.2; O2SAT 91
[2021-10-20 17:35] LABS: Bedside Glucose 80 mg/dL (70-110)
[2021-10-20 21:31] LABS: Bedside Glucose 115 mg/dL (70-110)
[2021-10-20 23:01] VITALS: RESP 16
[2021-10-21 05:31] VITALS: BP 130/77; PULSE 59; RESP 16; TEMP 36.9; O2SAT 93
[2021-10-21] MEDS: Menthol/Lanolin/Calamine/Znox 113 GM Tube 1 APPLIC TOPICAL ×2 (05:37→16:24)
[2021-10-21] MEDS: Doxazosin 1 MG Tablet 2 MG PO (05:37)
[2021-10-21] MEDS: Anastrozole 1 MG TABLET PO (05:37)
[2021-10-21] MEDS: Citalopram 10 MG Tablet PO (05:38)
[2021-10-21] MEDS: Enoxaparin 40 MG/0.4 ML Syringe SC (05:38)
[2021-10-21] MEDS: Carvedilol 12.5 MG Tablet PO ×2 (05:38→16:24)
[2021-10-21] MEDS: Nystatin Powder 15gm Bottle 1 APPLIC TOPICAL ×2 (05:39→18:48)
[2021-10-21] MEDS: Lisinopril 20 MG Tablet PO (05:40)
[2021-10-21] MEDS: amLODIPine 10 MG Tablet PO (05:40)
[2021-10-21] MEDS: Clopidogrel Bisulfate 75 MG Tablet PO (05:40)
[2021-10-21] MEDS: Levothyroxine 100 MCG Tablet PO (05:40)
[2021-10-21] MEDS: Cholecalciferol (VIT D3) 25 MCG TABLET (1,000 UNITS) 50 MCG PO (05:40)
[2021-10-21 07:20] LABS: Bedside Glucose 85 mg/dL (70-110)
[2021-10-21] MEDS: metFORMIN HCl 500 MG Tablet PO ×2 (07:58→16:24)
[2021-10-21] MEDS: Potassium Chloride Oral Tablet 20 MEQ PO ×2 (07:58→16:23)
[2021-10-21] MEDS: Calcium (Elemental) 500 MG Tablet PO ×2 (07:58→16:24)
[2021-10-21 11:01] LABS: Bedside Glucose 95 mg/dL (70-110)
[2021-10-21 14:35] VITALS: BP 120/73; PULSE 64; RESP 16; TEMP 36.3; O2SAT 92
[2021-10-21 15:50] LABS: Bedside Glucose 66 mg/dL (70-110)
[2021-10-21 15:56] LABS: Bedside Glucose 104 mg/dL (70-110)
[2021-10-21 19:58] VITALS: RESP 17
[2021-10-21 21:21] LABS: Bedside Glucose 145 mg/dL (70-110)
[2021-10-21] MEDS: Acetaminophen 500 MG Tablet 1000 MG PO (23:32)
[2021-10-22] MEDS: amLODIPine 10 MG Tablet PO (05:58)
[2021-10-22] MEDS: Lisinopril 20 MG Tablet PO (05:59)
[2021-10-22] MEDS: Cholecalciferol (VIT D3) 25 MCG TABLET (1,000 UNITS) 50 MCG PO (05:59)
[2021-10-22] MEDS: Nystatin Powder 15gm Bottle 1 APPLIC TOPICAL ×2 (05:59→18:11)
[2021-10-22] MEDS: Doxazosin 1 MG Tablet 2 MG PO (05:59)
[2021-10-22] MEDS: Anastrozole 1 MG TABLET PO (05:59)
[2021-10-22] MEDS: Carvedilol 12.5 MG Tablet PO ×2 (05:59→18:10)
[2021-10-22] MEDS: Levothyroxine 100 MCG Tablet PO (05:59)
[2021-10-22] MEDS: Citalopram 10 MG Tablet PO (05:59)
[2021-10-22] MEDS: Clopidogrel Bisulfate 75 MG Tablet PO (05:59)
[2021-10-22] MEDS: Menthol/Lanolin/Calamine/Znox 113 GM Tube 1 APPLIC TOPICAL ×2 (06:00→18:11)
[2021-10-22] MEDS: Enoxaparin 40 MG/0.4 ML Syringe SC (06:00)
[2021-10-22 06:25] LABS: Bedside Glucose 62 mg/dL (70-110)
[2021-10-22] MEDS: Potassium Chloride Oral Tablet 20 MEQ PO ×2 (08:12→18:10)
[2021-10-22] MEDS: Calcium (Elemental) 500 MG Tablet PO ×2 (08:12→18:10)
[2021-10-22 10:56] LABS: Bedside Glucose 138 mg/dL (70-110)
[2021-10-22 13:26] VITALS: BP 118/68; PULSE 66; RESP 16; TEMP 36.4; O2SAT 93
--- NOTE | 2021-10-22 14:37 | NURSING ---
Resident and spouse, Cullen, notified of 2 staff members testing positive for COVID.
[2021-10-22 16:21] LABS: Bedside Glucose 138 mg/dL (70-110)
[2021-10-22] MEDS: Senna/Docusate Sodium 1 Tablet PO (18:10)
[2021-10-22 21:41] LABS: Bedside Glucose 111 mg/dL (70-110)
[2021-10-23] MEDS: Cholecalciferol (VIT D3) 25 MCG TABLET (1,000 UNITS) 50 MCG PO (06:08)
[2021-10-23] MEDS: Citalopram 10 MG Tablet PO (06:08)
[2021-10-23] MEDS: Senna/Docusate Sodium 1 Tablet PO ×2 (06:08→17:36)
[2021-10-23] MEDS: Enoxaparin 40 MG/0.4 ML Syringe SC (06:08)
[2021-10-23] MEDS: Doxazosin 1 MG Tablet 2 MG PO (06:08)
[2021-10-23] MEDS: Lisinopril 20 MG Tablet PO (06:09)
[2021-10-23] MEDS: Nystatin Powder 15gm Bottle 1 APPLIC TOPICAL ×2 (06:09→21:51)
[2021-10-23] MEDS: Levothyroxine 100 MCG Tablet PO (06:09)
[2021-10-23] MEDS: Carvedilol 12.5 MG Tablet PO ×2 (06:09→17:36)
[2021-10-23] MEDS: Menthol/Lanolin/Calamine/Znox 113 GM Tube 1 APPLIC TOPICAL ×2 (06:09→21:51)
[2021-10-23] MEDS: amLODIPine 10 MG Tablet PO (06:09)
[2021-10-23] MEDS: Clopidogrel Bisulfate 75 MG Tablet PO (06:09)
[2021-10-23] MEDS: Anastrozole 1 MG TABLET PO (06:10)
[2021-10-23 06:18] VITALS: BP 124/68; PULSE 55
[2021-10-23 06:41] LABS: Bedside Glucose 64 mg/dL (70-110)
[2021-10-23] MEDS: Potassium Chloride Oral Tablet 20 MEQ PO ×2 (08:37→17:36)
[2021-10-23] MEDS: metFORMIN HCl 500 MG Tablet PO (08:37)
[2021-10-23] MEDS: Calcium (Elemental) 500 MG Tablet PO ×2 (08:37→17:36)
[2021-10-23 11:00] LABS: Bedside Glucose 98 mg/dL (70-110)
[2021-10-23 14:16] VITALS: BP 109/72; PULSE 60; RESP 14; TEMP 36.4; O2SAT 93
[2021-10-23 16:26] LABS: Bedside Glucose 89 mg/dL (70-110)
[2021-10-23 17:41] VITALS: BP 126/80; PULSE 65
[2021-10-23 21:40] LABS: Bedside Glucose 158 mg/dL (70-110)
[2021-10-24] MEDS: Carvedilol 12.5 MG Tablet PO ×2 (06:30→19:03)
[2021-10-24] MEDS: Doxazosin 1 MG Tablet 2 MG PO (06:30)
[2021-10-24] MEDS: Cholecalciferol (VIT D3) 25 MCG TABLET (1,000 UNITS) 50 MCG PO (06:30)
[2021-10-24] MEDS: Lisinopril 20 MG Tablet PO (06:30)
[2021-10-24] MEDS: Levothyroxine 100 MCG Tablet PO (06:30)
[2021-10-24] MEDS: Citalopram 10 MG Tablet PO (06:30)
[2021-10-24] MEDS: Clopidogrel Bisulfate 75 MG Tablet PO (06:30)
[2021-10-24 06:31] LABS: Bedside Glucose 98 mg/dL (70-110)
[2021-10-24] MEDS: Enoxaparin 40 MG/0.4 ML Syringe SC (06:31)
[2021-10-24] MEDS: Anastrozole 1 MG TABLET PO (06:31)
[2021-10-24] MEDS: amLODIPine 10 MG Tablet PO (06:31)
[2021-10-24 06:39] VITALS: BP 141/81; PULSE 66
[2021-10-24] MEDS: Menthol/Lanolin/Calamine/Znox 113 GM Tube 1 APPLIC TOPICAL ×2 (06:39→19:02)
[2021-10-24] MEDS: Calcium (Elemental) 500 MG Tablet PO ×2 (08:22→17:29)
[2021-10-24] MEDS: metFORMIN HCl 500 MG Tablet PO (08:22)
[2021-10-24] MEDS: Potassium Chloride Oral Tablet 20 MEQ PO ×2 (08:22→17:29)
--- NOTE | 2021-10-24 09:41 | NURSING ---
Patient still refusing to get out of bed this AM, Incontinent of stool and urine and would not roll for smita care.
[2021-10-24 11:01] LABS: Bedside Glucose 184 mg/dL (70-110)
[2021-10-24 13:24] VITALS: BP 114/70; PULSE 60; RESP 16; TEMP 36.6; O2SAT 94
[2021-10-24 16:56] LABS: Bedside Glucose 140 mg/dL (70-110)
[2021-10-24] MEDS: Glucerna Shake 120 ML LIQUID PO (17:29)
[2021-10-24] MEDS: Nystatin Powder 15gm Bottle 1 APPLIC TOPICAL (19:03)
[2021-10-24 21:41] LABS: Bedside Glucose 154 mg/dL (70-110)
[2021-10-25] MEDS: Menthol/Lanolin/Calamine/Znox 113 GM Tube 1 APPLIC TOPICAL ×2 (06:09→17:51)
[2021-10-25] MEDS: Anastrozole 1 MG TABLET PO (06:09)
[2021-10-25] MEDS: Carvedilol 12.5 MG Tablet PO ×2 (06:10→17:52)
[2021-10-25] MEDS: Enoxaparin 40 MG/0.4 ML Syringe SC (06:10)
[2021-10-25] MEDS: Doxazosin 1 MG Tablet 2 MG PO (06:10)
[2021-10-25] MEDS: Citalopram 10 MG Tablet PO (06:10)
[2021-10-25] MEDS: Nystatin Powder 15gm Bottle 1 APPLIC TOPICAL ×2 (06:11→17:51)
[2021-10-25] MEDS: Cholecalciferol (VIT D3) 25 MCG TABLET (1,000 UNITS) 50 MCG PO (06:13)
[2021-10-25] MEDS: amLODIPine 10 MG Tablet PO (06:13)
[2021-10-25] MEDS: Clopidogrel Bisulfate 75 MG Tablet PO (06:13)
[2021-10-25] MEDS: Levothyroxine 100 MCG Tablet PO (06:13)
[2021-10-25] MEDS: Lisinopril 20 MG Tablet PO (06:14)
[2021-10-25 06:51] LABS: Bedside Glucose 108 mg/dL (70-110)
[2021-10-25] MEDS: Calcium (Elemental) 500 MG Tablet PO ×2 (08:14→17:51)
[2021-10-25] MEDS: Potassium Chloride Oral Tablet 20 MEQ PO ×2 (08:14→17:50)
[2021-10-25] MEDS: metFORMIN HCl 500 MG Tablet PO (08:14)
[2021-10-25 11:00] LABS: Bedside Glucose 143 mg/dL (70-110)
[2021-10-25] MEDS: Glucerna Shake 120 ML LIQUID PO ×2 (11:35→17:50)
--- NOTE | 2021-10-25 12:29 | CASEMGMT ---
Addendum entered by Denisha Cadet 10/26/21 11:48: [facility] can accept. Updated pt. Addendum entered by Denisha Cadet 10/25/21 16:24: [facility] unable to accept. Referred to [facility]. Original Note: Social Work Pt requesting to speak with this worker for DC plan. Met with patient. She is requesting to DC home 10/29, the day of [place] next review date. Pt states her can care for her at home, she denies counseling at [facility], states she counseling herself but agreeable to [facility]. IDT still recommending APS referral for safety and conditions at home. SW will make referral. Pt denies any DME needs. can transport pt. Referral made to [facility] PT/OT/SN/CO[place]/SW. Plan: DC home with 10/29, [facility] PT/OT/SN/CO[facility]INS/SW CARIE RiveraW
[2021-10-25 13:50] VITALS: BP 104/59; PULSE 57; RESP 16; TEMP 36.4; O2SAT 95
[2021-10-25 16:06] LABS: Bedside Glucose 141 mg/dL (70-110)
[2021-10-25] MEDS: Senna/Docusate Sodium 1 Tablet PO (17:50)
[2021-10-25 19:40] VITALS: PULSE 59; RESP 16
--- NOTE | 2021-10-25 19:57 | PCM.DC.SUM ---
Providers Date of Admission: 10/04/21 Primary Care Physician: Dr. Tera Butts MD Consultations 10/07/21 22:25 Consult: Hospice / Palliative Care Routine Consulting Provider: [facility] Reason for Consult: Palliative consult: goals of care, significant disease burden, poor adheren EMERGENT Consult: No MD Notified: Yes Date Notified: 10/07/21 Time Notified: 22:25 Method of Notification: Verbal Reason For Visit: CYSTITIS, UNCONTROLLED DIABETES Diagnosis Discharge Diagnosis (1) Hypothyroidism: Status: Acute Code(s): E03.9 - Hypothyroidism, unspecified (2) Hypokalemia: Status: Acute Code(s): E87.6 - Hypokalemia (3) Hypomagnesemia: Status: Acute Code(s): E83.42 - Hypomagnesemia (4) Depression: Status: Acute Code(s): F32.A - Depression, unspecified (5) Stroke: Status: Acute Code(s): I63.9 - Cerebral infarction, unspecified (6) Hypertension: Status: Chronic Code(s): I10 - Essential (primary) hypertension (7) Osteoporosis: Status: Acute Code(s): M81.0 - Age-related osteoporosis without current pathological fracture (8) Appetite loss: Status: Acute Code(s): R63.0 - Anorexia (9) Acute cystitis: Status: Acute Code(s): N30.00 - Acute cystitis without hematuria (10) Debility: Status: Acute Code(s): R53.81 - Other malaise (11) Sacral pain: Status: Acute Code(s): M53.3 - Sacrococcygeal disorders, not elsewhere classified Medications at Discharge Home Medications cholecalciferol (vitamin D3) 2,000 unit PO DAILY 03/23/20 amlodipine 10 mg tablet 10 mg PO DAILY #90 tab 06/13/20 calcium carbonate 600 mg calcium (1,500 mg) tablet 600 mg PO BID #180 tab 08/16/20 metformin 500 mg tablet 500 mg PO BIDCM #60 tab 09/06/20 levothyroxine 100 mcg tablet 100 mcg PO DAILY@0600 #60 tab 07/03/21 anastrozole 1 mg tablet 1 mg PO DAILY #90 tab 07/04/21 albuterol sulfate 2 puff INHALATION Q4H PRN 10/03/21 blood sugar diagnostic [FreeStyle Test] 10/04/21 blood-glucose meter [FreeStyle System Kit] 10/04/21 carvedilol 12.5 mg PO Q12H 10/04/21 compress.stocking,knee,reg,lrg 10/04/21 doxazosin 2 mg PO DAILY 10/04/21 lancets [FreeStyle Lancets] 10/04/21 lisinopril 20 mg PO DAILY 10/04/21 pen needle, diabetic [Unifine Pentips] 10/04/21 potassium chloride [Klor-Con M20] 20 meq PO BIDCM 10/04/21 citalopram 10 mg PO DAILY 30 Days #30 tab 10/25/21 clopidogrel [Plavix] 75 mg PO DAILY 30 Days #30 tab 10/25/21 nicotine 21 mg TRANSDERMAL DAILY 30 Days #30 ea 10/25/21 Hospital Course Operations None Procedures None Summary of Care Provided Minutes Spent on Discharge: 35 Hospital Course: 66 year old female with below past medical history hospitalized for hyperglycemia, urinary tract infection, acute kidney injury, dehydration, complicated by vtach, hypokalemia, hypomagnesemia, admitted to TCU with debility, here for rehabilitation, strengthening, prior to discharge home with significant other. Discharge home with 10/29/2021, [facility] PT/OT/SN/COLLINS/SW. Physical Exam Const alert and oriented x3 General Appearance: cooperative HEENT normocephalic Eyes PERRL and EOMs intact bilaterally Neck supple, no JVD and no carotid bruits Resp normal respiratory effort, normal air movement and clear to auscultation bilaterally Cardio regular rate and regular rhythm GI normal to inspection, nondistended, normoactive bowel sounds, non-tender and non-distended Extremity normal capillary refill General Extremity: Negative for edema Skin no rashes or lesions noted General Skin Exam: no breakdown Psych affect normal Appearance: appropriate Weight / BMI Weight Weight: 61.348 kg Body Mass Index (BMI) 26.7 ABG / Lab / Microbiology Data Result Diagrams: 10/19/21 05:08 10/19/21 05:08 Laboratory: Laboratory Results - last 24 hr 10/24/21 21:31: POC Glucose 154 H 10/25/21 06:19: POC Glucose 108 10/25/21 10:58: POC Glucose 143 H 10/25/21 15:53: POC Glucose 141 H Microbiology: Microbiology 10/25/21 12:15 Nasal Secretion SARS-CoV-2 Antigen (Rapid) - Final 10/18/21 13:40 Nasal Secretion SARS-CoV-2 Antigen (Rapid) - Final 10/11/21 10:52 Nasal Secretion SARS-CoV-2 Antigen (Rapid) - Final D/C Instructions Discharge Diet: No restrictions Discharge Activity: Return to Normal Activity, May Shower and Use Walker May resume sexual activity in: No Restrictions Weight Bearing Status: Weight bearing as tolerated Call your doctor if you observe: Fever of 101 or Higher, Inability to urinate, Inability to have a bowel movement, Shortness of breath, Dizziness, Fainting spells, Swelling in the ankles, Chest pain and Uncontrolled pain Additional Instructions: Discharge home with 10/29/2021, [facility] PT/OT/SN/COLLINS/SW. Please Follow Up With: Tera Butts MD When: 1 week. Meaningful Use Info Meaningful Use Diagnoses (Choose all that apply): None applicable Discharge Plan Admission Admit Date/Time: 10/04/21 18:30 Primary Reason for Your Visit: Debility. Attending Provider: Maurice Barker Chi Primary Care Provider: Tera Butts Consulting Providers: Mikayla Lo ; Ulises Joe ; Lety Moya ; Magdalena Neff ; Roro Martinez ; Jeanie Crespo KIER TENDER Instructions Additional Instructions / Restrictions: Discharge home with 10/29/2021, [facility] PT/OT/SN/COLLINS/SW. Discharge Orders/Prescriptions Prescriptions: New citalopram 10 mg Tablet 10 mg PO DAILY 30 Days Qty: 30 RF: 0 nicotine 21 mg/24 hr Patch 24 Hour 21 mg transdermal DAILY 30 Days Qty: 30 RF: 0 Continued amlodipine 10 mg tablet 10 mg PO DAILY Qty: 90 RF: 3 anastrozole 1 mg tablet 1 mg PO DAILY Qty: 90 RF: 0 cholecalciferol (vitamin D3) 1,000 UNIT tablet 2,000 unit PO DAILY RF: 0 albuterol sulfate 90 mcg/actuation HFA aerosol inhaler 2 puff INHALATION Q4H PRN (Reason: SOB) RF: 0 carvedilol 12.5 mg tablet 12.5 mg PO Q12H RF: 0 lisinopril 20 mg tablet 20 mg PO DAILY RF: 0 potassium chloride [Klor-Con M20] 20 mEq tablet,ER particles/crystals 20 meq PO BIDCM RF: 0 doxazosin 2 mg tablet 2 mg PO DAILY RF: 0 clopidogrel [Plavix] 75 mg tablet 75 mg PO DAILY 30 Days Qty: 30 RF: 0 calcium carbonate 600 mg calcium (1,500 mg) tablet 600 mg PO BID Qty: 180 RF: 1 metformin 500 mg tablet 500 mg PO BIDCM Qty: 60 RF: 1 levothyroxine 100 mcg tablet 100 mcg PO DAILY@0600 Qty: 60 RF: 3 Discontinued cephalexin [Keflex] 750 mg capsule 750 mg PO BID RF: 0 Basaglar KwikPen U-100 Insulin 100 unit/mL (3 mL) insulin pen 15 unit subcut BID RF: 0 No Action (DME) FreeStyle Test Strip See Rx Instructions .ROUTE .MEDSUPPLY RF: 0 (DME) blood-glucose meter [FreeStyle System Kit] Kit See Rx Instructions .ROUTE .MEDSUPPLY RF: 0 (DME) pen needle, diabetic [Unifine Pentips] 29 gauge x 1/2 needle See Rx Instructions .ROUTE .MEDSUPPLY RF: 0 (DME) compress.stocking,knee,reg,lrg Misc See Rx Instructions MISCELLANEOUS RF: 0 (DME) lancets [FreeStyle Lancets] 28 gauge misc See Rx Instructions .ROUTE .MEDSUPPLY RF: 0 Referrals / Follow Up: Tera Butts MD [Primary Care Provider] - Disposition Disposition (needs filled in before D/C Order can be placed): Home Health Service
[2021-10-25 21:21] LABS: Bedside Glucose 182 mg/dL (70-110)
[2021-10-26 05:48] LABS: Absolute Lymphocyte Count 3.43 X10^3/uL (0.83-4.51); Absolute Neutrophil Count 4.1 X10^3/uL (2.0-7.7); Basophil# 0.08 X10^3/uL; Eosinophils% 2.4 % (0-5); Hematocrit 36.6 % (37-47); Hemoglobin 11.6 g/dL (12.0-15.0); Lymphocyte # 3.43 X10^3/ul (0.83-4.51); Lymphocyte % 41.1 % (19-41); Mean Corp Hgb Conc 31.7 g/dL (32-36); Mean Corpuscular Hgb 28.6 pg (27.0-32.0); Mean Corpuscular Volume 90.4 fL (81-99); Mean Platelet Vol. 10.8 fl (6.2-12.0); Monocyte# 0.47 X10^3/uL; Monocyte% 5.6 % (0-10); NRBC Flagged by Analyzer 0 % (0-5); Neutrophil # 4.11 X10^3/uL (2.7-7.7); Neutrophil % 49.2 % (47-70); Platelet Count 302 K/mm3 (150-450); RBC Distribution Width CV 14.1 % (11.6-14.6); RBC Distribution Width SD 47.4 fl (35.1-43.9); Red Blood Count 4.05 M/mm3 (4.2-5.4); White Blood Count 8.4 K/mm3 (4.4-11.0)
[2021-10-26 06:19] LABS: Anion Gap 4 (5-15); BUN 15 mg/dL (7-18); BUN/Creat Ratio 13.6 RATIO (10-20); Calcium,Total 8.9 mg/dL (8.5-10.1); Chloride 110 mmol/L (98-107); EST Glomerular Filtration Rate 53 mL/min (>60); Est Glom Filt Rate - Afr Amer 64 mL/min (>60); Estimated Creatinine Clearance 48.06 ml/min; Glucose 98 mg/dL (74-106); Potassium 3.9 mmol/L (3.5-5.1); Sodium Level 141 mmol/L (136-145)
[2021-10-26 06:46] LABS: Bedside Glucose 103 mg/dL (70-110)
[2021-10-26] MEDS: Doxazosin 1 MG Tablet 2 MG PO (06:48)
[2021-10-26] MEDS: Anastrozole 1 MG TABLET PO (06:48)
[2021-10-26] MEDS: Menthol/Lanolin/Calamine/Znox 113 GM Tube 1 APPLIC TOPICAL ×2 (06:48→17:38)
[2021-10-26] MEDS: Enoxaparin 40 MG/0.4 ML Syringe SC (06:49)
[2021-10-26] MEDS: Citalopram 10 MG Tablet PO (06:49)
[2021-10-26] MEDS: Carvedilol 12.5 MG Tablet PO ×2 (06:49→17:35)
[2021-10-26] MEDS: Nystatin Powder 15gm Bottle 1 APPLIC TOPICAL ×2 (06:50→17:35)
[2021-10-26] MEDS: amLODIPine 10 MG Tablet PO (06:51)
[2021-10-26] MEDS: Cholecalciferol (VIT D3) 25 MCG TABLET (1,000 UNITS) 50 MCG PO (06:52)
[2021-10-26] MEDS: Clopidogrel Bisulfate 75 MG Tablet PO (06:52)
[2021-10-26] MEDS: Levothyroxine 100 MCG Tablet PO (06:52)
[2021-10-26] MEDS: Lisinopril 20 MG Tablet PO (06:53)
[2021-10-26 08:16] VITALS: PULSE 57; RESP 16; O2SAT 95
[2021-10-26] MEDS: metFORMIN HCl 500 MG Tablet PO (08:23)
[2021-10-26] MEDS: Potassium Chloride Oral Tablet 20 MEQ PO ×2 (08:23→17:37)
[2021-10-26] MEDS: Calcium (Elemental) 500 MG Tablet PO ×2 (08:23→17:38)
[2021-10-26 11:25] LABS: Bedside Glucose 196 mg/dL (70-110)
[2021-10-26 16:00] VITALS: BP 116/63; PULSE 59; RESP 16; TEMP 36.3; O2SAT 94
[2021-10-26 16:01] LABS: Bedside Glucose 150 mg/dL (70-110)
[2021-10-26] MEDS: Senna/Docusate Sodium 1 Tablet PO (17:38)
[2021-10-26 21:26] LABS: Bedside Glucose 133 mg/dL (70-110)
[2021-10-27] MEDS: Enoxaparin 40 MG/0.4 ML Syringe SC (06:05)
[2021-10-27] MEDS: Cholecalciferol (VIT D3) 25 MCG TABLET (1,000 UNITS) 50 MCG PO (06:06)
[2021-10-27] MEDS: Senna/Docusate Sodium 1 Tablet PO ×2 (06:06→17:54)
[2021-10-27] MEDS: Carvedilol 12.5 MG Tablet PO ×2 (06:06→17:54)
[2021-10-27] MEDS: Levothyroxine 100 MCG Tablet PO (06:06)
[2021-10-27] MEDS: Anastrozole 1 MG TABLET PO (06:06)
[2021-10-27] MEDS: Clopidogrel Bisulfate 75 MG Tablet PO (06:06)
[2021-10-27] MEDS: Nystatin Powder 15gm Bottle 1 APPLIC TOPICAL ×2 (06:06→17:54)
[2021-10-27] MEDS: Doxazosin 1 MG Tablet 2 MG PO (06:06)
[2021-10-27] MEDS: Lisinopril 20 MG Tablet PO (06:06)
[2021-10-27] MEDS: amLODIPine 10 MG Tablet PO (06:06)
[2021-10-27] MEDS: Citalopram 10 MG Tablet PO (06:06)
[2021-10-27] MEDS: Menthol/Lanolin/Calamine/Znox 113 GM Tube 1 APPLIC TOPICAL ×2 (06:06→17:54)
[2021-10-27 06:21] LABS: Bedside Glucose 102 mg/dL (70-110)
[2021-10-27] MEDS: Calcium (Elemental) 500 MG Tablet PO ×2 (07:56→17:54)
[2021-10-27] MEDS: Potassium Chloride Oral Tablet 20 MEQ PO ×2 (07:56→17:54)
[2021-10-27] MEDS: metFORMIN HCl 500 MG Tablet PO (07:56)
[2021-10-27 11:11] LABS: Bedside Glucose 195 mg/dL (70-110)
[2021-10-27 13:43] VITALS: BP 113/70; PULSE 63; RESP 18; TEMP 36.3; O2SAT 93
[2021-10-27 16:15] LABS: Bedside Glucose 132 mg/dL (70-110)
[2021-10-27 21:35] LABS: Bedside Glucose 188 mg/dL (70-110)
--- NOTE | 2021-10-27 22:15 | NURSING ---
Offered hs snack and pt declined.
[2021-10-28] MEDS: Doxazosin 1 MG Tablet 2 MG PO (05:38)
[2021-10-28] MEDS: Enoxaparin 40 MG/0.4 ML Syringe SC (05:38)
[2021-10-28] MEDS: Citalopram 10 MG Tablet PO (05:39)
[2021-10-28] MEDS: amLODIPine 10 MG Tablet PO (05:39)
[2021-10-28] MEDS: Carvedilol 12.5 MG Tablet PO ×2 (05:39→16:50)
[2021-10-28] MEDS: Clopidogrel Bisulfate 75 MG Tablet PO (05:39)
[2021-10-28] MEDS: Levothyroxine 100 MCG Tablet PO (05:40)
[2021-10-28] MEDS: Cholecalciferol (VIT D3) 25 MCG TABLET (1,000 UNITS) 50 MCG PO (05:40)
[2021-10-28] MEDS: Menthol/Lanolin/Calamine/Znox 113 GM Tube 1 APPLIC TOPICAL ×2 (05:41→16:51)
[2021-10-28] MEDS: Nystatin Powder 15gm Bottle 1 APPLIC TOPICAL ×2 (05:41→16:51)
[2021-10-28] MEDS: Lisinopril 20 MG Tablet PO (05:41)
[2021-10-28] MEDS: Anastrozole 1 MG TABLET PO (05:42)
[2021-10-28 05:51] VITALS: BP 114/77; PULSE 66
[2021-10-28 06:35] LABS: Bedside Glucose 134 mg/dL (70-110)
[2021-10-28] MEDS: Potassium Chloride Oral Tablet 20 MEQ PO ×2 (07:46→16:50)
[2021-10-28] MEDS: Calcium (Elemental) 500 MG Tablet PO ×2 (07:47→16:50)
[2021-10-28] MEDS: metFORMIN HCl 500 MG Tablet PO (07:47)
[2021-10-28 11:36] LABS: Bedside Glucose 205 mg/dL (70-110)
[2021-10-28 15:56] LABS: Bedside Glucose 174 mg/dL (70-110)
[2021-10-28 16:00] VITALS: BP 113/68; PULSE 62; RESP 12; TEMP 36.4; O2SAT 93
[2021-10-28 22:40] LABS: Bedside Glucose 168 mg/dL (70-110)
[2021-10-29] MEDS: amLODIPine 10 MG Tablet PO (05:44)
[2021-10-29] MEDS: Menthol/Lanolin/Calamine/Znox 113 GM Tube 1 APPLIC TOPICAL (05:44)
[2021-10-29] MEDS: Clopidogrel Bisulfate 75 MG Tablet PO (05:44)
[2021-10-29] MEDS: Lisinopril 20 MG Tablet PO (05:44)
[2021-10-29] MEDS: Cholecalciferol (VIT D3) 25 MCG TABLET (1,000 UNITS) 50 MCG PO (05:44)
[2021-10-29] MEDS: Citalopram 10 MG Tablet PO (05:44)
[2021-10-29] MEDS: Levothyroxine 100 MCG Tablet PO (05:44)
[2021-10-29] MEDS: Doxazosin 1 MG Tablet 2 MG PO (05:44)
[2021-10-29] MEDS: Carvedilol 12.5 MG Tablet PO (05:44)
[2021-10-29] MEDS: Anastrozole 1 MG TABLET PO (05:44)
[2021-10-29] MEDS: Enoxaparin 40 MG/0.4 ML Syringe SC (05:45)
[2021-10-29] MEDS: Nystatin Powder 15gm Bottle 1 APPLIC TOPICAL (05:51)
[2021-10-29 05:52] VITALS: PULSE 63; RESP 16; O2SAT 95
[2021-10-29 05:57] VITALS: BP 127/71; PULSE 63; RESP 16; TEMP 36.9; O2SAT 95
[2021-10-29 06:30] LABS: Bedside Glucose 116 mg/dL (70-110)
[2021-10-29] MEDS: metFORMIN HCl 500 MG Tablet PO (08:16)
[2021-10-29] MEDS: Potassium Chloride Oral Tablet 20 MEQ PO (08:17)
[2021-10-29] MEDS: Calcium (Elemental) 500 MG Tablet PO (08:17)
--- NOTE | 2021-10-29 09:03 | CASEMGMT ---
Addendum entered by Denisha Cadet 10/29/21 15:33: Received return phone call from [facility]. Provided report, concerns and recommendations to LUIS ARMANDO Coffey. Original Note: Social Work Left message with LUIS ARMANDO Landeros at [facility] to make referral. CARIE RiveraW
[2021-10-29 11:05] LABS: Bedside Glucose 189 mg/dL (70-110)
== END 2021-10-29 11:15 | disposition home health service (06) | DRG 690 ==
PROVIDERS: Admitting Provider Family Medicine Geriatric Medicine; PCP Internal Medicine; Visit Provider Family Medicine Geriatric Medicine
DX: N30.00 Acute cystitis without hematuria (principal); C50.919 Malignant neoplasm of unspecified site of unspecified female breast; Z79.4 Long term (current) use of insulin; E11.9 Type 2 diabetes mellitus without complications; E03.9 Hypothyroidism, unspecified; F12.10 Cannabis abuse, uncomplicated; E55.9 Vitamin D deficiency, unspecified; I10 Essential (primary) hypertension; E87.6 Hypokalemia; M19.90 Unspecified osteoarthritis, unspecified site; J45.909 Unspecified asthma, uncomplicated; E78.5 Hyperlipidemia, unspecified; F17.210 Nicotine dependence, cigarettes, uncomplicated; F41.9 Anxiety disorder, unspecified; M53.3 Sacrococcygeal disorders, not elsewhere classified; Z79.899 Other long term (current) drug therapy; Z79.890 Hormone replacement therapy; Z79.02 Long term (current) use of antithrombotics/antiplatelets; Z91.19 Patient's noncompliance with other medical treatment and regimen; Z23 Encounter for immunization; F32.A Depression, unspecified
CPT/HCPCS: 0004A; 36415; 73502; 74018; 80048; 82962; 85025; 87426; 91300; 97110; 97116; 97162; 97166; 97530; 97535; 97802; 97803; 99406; A4216; J1610; J7799

== ENCOUNTER 2021-10-30 09:08 | Emergency (ER) | payer BC, SELFPAY ==
[2021-10-30 09:12] VITALS: BP 162/98; PULSE 86; RESP 15; TEMP 36.4; O2SAT 97; BMI 24.7
--- NOTE | 2021-10-30 09:12 | RAD_ITS ---
STUDY: X-RAY - RIGHT KNEE REASON FOR EXAM: Female, 66 years old. fall, pain TECHNIQUE: 3 view(s) of the knee. COMPARISON: None. FINDINGS: There is demineralization of the visualized distal femur. There is demineralization of the tibia and fibula. Normal proximal tibiofibular articulation. Normal medial femorotibial compartment. Normal lateral femorotibial compartment. Normal patellofemoral articulation. There is a moderate volume joint effusion. 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 The soft tissue structures are unremarkable. RAD/Knee 3 Views IMPRESSION: Effusion, as described above. Correlation with MRI may be useful to exclude radiographically occult fracture in this patient with osteopenia. Electronically Signed: Armani Orona MD at 10:03 EST Tel , Service support ,
--- NOTE | 2021-10-30 09:12 | RAD_ITS ---
STUDY: X-RAY - PELVIS REASON FOR EXAM: Female, 66 years old. fall, pain TECHNIQUE: One view of the pelvis was obtained. COMPARISON: 10/12/2021 FINDINGS: There is a non-specific bowel gas pattern. Normal visualized soft tissue structures. Normal bilateral iliac wings, sacroiliac joints and visualized sacrum. Normal visualized bilateral superior and inferior pubic rami. Normal pubic symphysis. Normal ischial tuberosities. Healed fracture of right intratrochanteric femur after reduction internal fixation with a femoral neck compression screw and a short intramedullary marisabel. Normal right acetabulum. Normal right hip joint. Normal visualized left femoral head. Normal left acetabulum. Normal left hip joint. RAD/Pelvis 1 or 2 Views IMPRESSION: No acute fracture or dislocation. Electronically Signed: Armani Orona MD at 10:02 EST Tel , Service support ,
--- NOTE | 2021-10-30 09:14 | EDS_ITS ---
HPI History of Present Illness Chief Complaint: Lower Extremity Injury Informant: patient Narrative Narrative: Patient is a poor informant for past history. But she cannot tell me the reason for this visit. Patient was brought in by EMS. Yesterday she was walking through a doorway in her house. She uses a walker normally. Her brother was trying to get through the door at the same time. They got twisted up and she fell onto her right knee. This was a mechanical fall and not syncope. She never hit her head. Per her chart she is on Plavix. Her sole complaint is the right knee. She does have people with her 24 hours a day and they were able to help get her up. Because it was still hurting today she came in for evaluation. She has not been able to put weight on the leg because of right knee pain. She denies hip or ankle area pain. Of note, patient was just in TCU. She states she was there for high blood pressure. She can give no further details. She also knows she has high blood pressure and diabetes but does not know what meds she is on. I did review her chart for her history. [facility] Medical History Arthritis Asthma Breast cancer Carpal tunnel syndrome Constipation CVA (cerebral vascular accident) Diabetes Flu vaccine need Hearing problem High blood pressure Hypertension Noncompliance Right hip pain Thyroid disease Vertigo Vision problems Home Medications cholecalciferol (vitamin D3) 2,000 unit PO DAILY 03/23/20 [History Last Taken Unknown] amlodipine 10 mg tablet 10 mg PO DAILY #90 tab 06/13/20 [Rx Last Taken Unknown] calcium carbonate 600 mg calcium (1,500 mg) tablet 600 mg PO BID #180 tab 08/16/20 [Rx Last Taken Unknown] metformin 500 mg tablet 500 mg PO BIDCM #60 tab 09/06/20 [Rx Last Taken Unknown] levothyroxine 100 mcg tablet 100 mcg PO DAILY@0600 #60 tab 07/03/21 [Rx Last Taken Unknown] anastrozole 1 mg tablet 1 mg PO DAILY #90 tab 07/04/21 [Rx Last Taken Unknown] albuterol sulfate 2 puff INHALATION Q4H PRN 10/03/21 [History Last Taken Unknown] blood sugar diagnostic [FreeStyle Test] 10/04/21 [History Last Taken Unknown] blood-glucose meter [FreeStyle System Kit] 10/04/21 [History Last Taken Unknown] carvedilol 12.5 mg PO Q12H 10/04/21 [History Last Taken Unknown] compress.stocking,knee,reg,lrg 10/04/21 [History Last Taken Unknown] doxazosin 2 mg PO DAILY 10/04/21 [History Last Taken Unknown] lancets [FreeStyle Lancets] 10/04/21 [History Last Taken Unknown] lisinopril 20 mg PO DAILY 10/04/21 [History Last Taken Unknown] pen needle, diabetic [Unifine Pentips] 10/04/21 [History Last Taken Unknown] potassium chloride [Klor-Con M20] 20 meq PO BIDCM 10/04/21 [History Last Taken Unknown] citalopram 10 mg PO DAILY 30 Days #30 tab 10/25/21 [Rx Last Taken Unknown] clopidogrel [Plavix] 75 mg PO DAILY 30 Days #30 tab 10/25/21 [Rx Last Taken Unknown] nicotine 21 mg TRANSDERMAL DAILY 30 Days #30 ea 10/25/21 [Rx Last Taken Unknown] Allergy/AdvReac Type Severity Reaction Status Date / Time aspirin Allergy Unknown Nausea Verified 10/30/21 09:16 albuterol AdvReac I GET VERY Verified 10/30/21 09:16 SHAKEY/HYPERVENTILATING Penicillins AdvReac Nausea/Vom/ Verified 10/30/21 09:16 Diarrhea Family History Father Cancer bone cancer Brother Heart disease Surgical History H/O mastectomy History of appendectomy History of section Social History household members: significant other Smoking Status: Current every day smoker tobacco type: cigarettes Tobacco: How many years used: 50 alcohol intake: never substance use type: marijuana and other details: smokes 4 joints a day ROS ROS ED Constitutional Constitutional ED: Denies chills or fever(s) Eyes Eyes: Denies blurry vision or diplopia ENT ENT ED: Denies rhinorrhea or sore throat Cardiovascular Cardiovascular: Denies chest pain or palpitations Respiratory/Chest Respiratory/Chest: Denies cough or dyspnea Gastrointestinal Gastrointestinal: Denies diarrhea, nausea or vomiting Genitourinary Genitourinary ED: Denies dysuria Musculoskeletal Musculoskeletal: Reports other Details: See history of present illness ; Denies back pain or neck pain Integumentary Denies Abrasions or rash Neurologic Neurologic: Denies headache(s), paresthesias or weakness Endocrine Endocrinology: Denies polydipsia or polyuria Allergic/Immunologic Allergic/Immunologic ED: Denies mouth swelling or urticaria EXAM Physical Exam Const Vital Signs: 10/30/21 09:12 Temperature 97.6 F L Temperature Source Oral Pulse Rate 86 Respiratory Rate 15 Blood Pressure 162/98 H Blood Pressure Mean 119 Pulse Ox 97 Oxygen Delivery Method Room Air HEENT Reports moist mucous membranes Negative for trauma Eyes General Eye ED: Negative for pale conjunctiva or scleral icterus Neck no JVD Chest Wall inspection of chest normal Resp normal respiratory effort and clear to auscultation bilaterally Effort and Inspection: Negative for pain with movement Auscultation: Negative for rales, rhonchi or wheezes Cardio regular rate, regular rhythm and no murmurs GI normal to inspection, nondistended, normoactive bowel sounds and non-tender GI Narrative: Patient did have stool in her adult diaper. She states this was just from this morning. Palpation: soft Back/Spine no CVA tenderness Extremity Extremity Narrative: Lower extremity was unwrapped. Pants were pulled down. Julian wrap was taken off the right knee. There is some mild diffuse tenderness. I see no gross deformity. There may be a small amount of swelling but the recent Julian wrap does alter this appearance. I do not get tenderness further down the garcia ankle or foot. No tenderness of the femur. No pain with compression of the hips or motion. Neuro oriented x3 Neuro Narrative: Patient is oriented x3. She is just not a good informant for the details of her medical history. However she is very clear on what happened regarding the fall and what brought her in today. Sensorium / Orientation: alert Skin no rashes or lesions noted and no wounds MDM MDM MDM Narrative Medical decision making narrative: Patient's x-ray showed some effusion but no sign of fracture. It certainly possible there could be an occult fracture. However patient is states it hurts but not that bad. She would like to go home. We got the patient up and walked. She actually did rather well with her walker. Her is here with her. They would like to go home. I think this is a reasonable option. If she develops more pain or weakness or inability to bear weight I think we can look further. Radiography Diagnostic Testing: Clinical Impression(s) from Imaging Studies Knee X-Ray 10/30/21 09:12 IMPRESSION: Effusion, as described above. Correlation with MRI may be useful to exclude radiographically occult fracture in this patient with osteopenia. Electronically Signed: Armani Orona MD at 10:03 EST Tel , Service support , Pelvis X-Ray 10/30/21 09:12 IMPRESSION: No acute fracture or dislocation. Electronically Signed: Armani Orona MD at 10:02 EST Tel , Service support , Discharge Plan Triage Chief Complaint: Lower Extremity Injury ED Provider: Barron Seals Dx/Rx/DC Orders Clinical Impression: Fall at home, Contusion of right knee Instructions: ED Knee Sprain Prescriptions: No Action amlodipine 10 mg tablet 10 mg PO DAILY Qty: 90 RF: 3 anastrozole 1 mg tablet 1 mg PO DAILY Qty: 90 RF: 0 cholecalciferol (vitamin D3) 1,000 UNIT tablet 2,000 unit PO DAILY RF: 0 albuterol sulfate 90 mcg/actuation HFA aerosol inhaler 2 puff INHALATION Q4H PRN (Reason: SOB) RF: 0 carvedilol 12.5 mg tablet 12.5 mg PO Q12H RF: 0 lisinopril 20 mg tablet 20 mg PO DAILY RF: 0 (DME) FreeStyle Test Strip See Rx Instructions .ROUTE .MEDSUPPLY RF: 0 potassium chloride [Klor-Con M20] 20 mEq tablet,ER particles/crystals 20 meq PO BIDCM RF: 0 (DME) blood-glucose meter [FreeStyle System Kit] Kit See Rx Instructions .ROUTE .MEDSUPPLY RF: 0 doxazosin 2 mg tablet 2 mg PO DAILY RF: 0 (DME) pen needle, diabetic [Unifine Pentips] 29 gauge x 1/2 needle See Rx Instructions .ROUTE .MEDSUPPLY RF: 0 (DME) compress.stocking,knee,reg,lrg Misc See Rx Instructions MISCELLANEOUS RF: 0 (DME) lancets [FreeStyle Lancets] 28 gauge misc See Rx Instructions .ROUTE .MEDSUPPLY RF: 0 citalopram 10 mg Tablet 10 mg PO DAILY 30 Days Qty: 30 RF: 0 nicotine 21 mg/24 hr Patch 24 Hour 21 mg transdermal DAILY 30 Days Qty: 30 RF: 0 clopidogrel [Plavix] 75 mg tablet 75 mg PO DAILY 30 Days Qty: 30 RF: 0 calcium carbonate 600 mg calcium (1,500 mg) tablet 600 mg PO BID Qty: 180 RF: 1 metformin 500 mg tablet 500 mg PO BIDCM Qty: 60 RF: 1 levothyroxine 100 mcg tablet 100 mcg PO DAILY@0600 Qty: 60 RF: 3 Primary Care Provider: Tera Butts Referrals: Tera Butts MD [Primary Care Provider] - 3-5 Days if not improving Disposition Disposition: Home, Self Care
[2021-10-30 11:29] VITALS: BP 138/79; PULSE 82; RESP 16; O2SAT 98
[2021-10-30] MEDS: Acetaminophen 325 MG Tablet 650 MG PO (11:29)
== END 2021-10-30 11:47 | disposition home or self-care (01) ==
PROVIDERS: Emergency Provider Emergency Medicine; PCP Internal Medicine; Visit Provider Emergency Medicine
DX: S80.01XA Contusion of right knee, initial encounter (principal); E11.9 Type 2 diabetes mellitus without complications; W19.XXXA Unspecified fall, initial encounter; Y93.01 Activity, walking, marching and hiking; Y92.019 Unspecified place in single-family (private) house as the place of occurrence of the external cause; I10 Essential (primary) hypertension; F17.210 Nicotine dependence, cigarettes, uncomplicated; J45.909 Unspecified asthma, uncomplicated; M19.90 Unspecified osteoarthritis, unspecified site; Z79.02 Long term (current) use of antithrombotics/antiplatelets; Z85.3 Personal history of malignant neoplasm of breast; Z86.73 Personal history of transient ischemic attack (TIA), and cerebral infarction without residual deficits; Z79.899 Other long term (current) drug therapy; Z79.84 Long term (current) use of oral hypoglycemic drugs; E07.9 Disorder of thyroid, unspecified
CPT/HCPCS: 72170; 73562; 99285

== ENCOUNTER 2021-11-08 13:09 | Emergency (ER) | payer BC, SELFPAY ==
[2021-11-08 13:09] VITALS: BP 165/105; PULSE 88; RESP 17; TEMP 36.4; O2SAT 97; BMI 24.9
--- NOTE | 2021-11-08 13:22 | EDS_ITS ---
HPI <CAROL ANN Jennings - Last Filed: 11/08/21 14:32> History of Present Illness Chief Complaint: Lower Extremity Injury Narrative Narrative: 66-year-old female presents with persistent right knee pain. She normally ambulates with a walker and 2 weeks ago had a mechanical fall onto the flexed right knee. She was evaluated at [facility] and had negative x-rays. Since then the swelling has slightly improved but she continues to have pain and cannot bear weight. Her family has been pushing around in a wheelchair and her daughter lifts her to transfer. She has been taking Tylenol with no relief. She has an appointment with the orthopedic doctor on November 13 but came in today seeking further imaging or pain control. No new injury. No paresthesias. PFS <CAROL ANN Jennings - Last Filed: 11/08/21 14:32> [facility] Medical History Arthritis Asthma Breast cancer Carpal tunnel syndrome Constipation CVA (cerebral vascular accident) Diabetes Flu vaccine need Hearing problem High blood pressure Hypertension Noncompliance Right hip pain Thyroid disease Vertigo Vision problems Home Medications cholecalciferol (vitamin D3) 2,000 unit PO DAILY 03/23/20 [History Last Taken Unknown] amlodipine 10 mg tablet 10 mg PO DAILY #90 tab 06/13/20 [Rx Last Taken Unknown] calcium carbonate 600 mg calcium (1,500 mg) tablet 600 mg PO BID #180 tab 08/16/20 [Rx Last Taken Unknown] metformin 500 mg tablet 500 mg PO BIDCM #60 tab 09/06/20 [Rx Last Taken Unknown] levothyroxine 100 mcg tablet 100 mcg PO DAILY@0600 #60 tab 07/03/21 [Rx Last Taken Unknown] anastrozole 1 mg tablet 1 mg PO DAILY #90 tab 07/04/21 [Rx Last Taken Unknown] albuterol sulfate 2 puff INHALATION Q4H PRN 10/03/21 [History Last Taken Unknown] blood sugar diagnostic [FreeStyle Test] 10/04/21 [History Last Taken Unknown] blood-glucose meter [FreeStyle System Kit] 10/04/21 [History Last Taken Unknown] carvedilol 12.5 mg PO Q12H 10/04/21 [History Last Taken Unknown] compress.stocking,knee,reg,lrg 10/04/21 [History Last Taken Unknown] doxazosin 2 mg PO DAILY 10/04/21 [History Last Taken Unknown] lancets [FreeStyle Lancets] 10/04/21 [History Last Taken Unknown] lisinopril 20 mg PO DAILY 10/04/21 [History Last Taken Unknown] pen needle, diabetic [Unifine Pentips] 10/04/21 [History Last Taken Unknown] potassium chloride [Klor-Con M20] 20 meq PO BIDCM 10/04/21 [History Last Taken Unknown] citalopram 10 mg PO DAILY 30 Days #30 tab 10/25/21 [Rx Last Taken Unknown] clopidogrel [Plavix] 75 mg PO DAILY 30 Days #30 tab 10/25/21 [Rx Last Taken Unknown] nicotine 21 mg TRANSDERMAL DAILY 30 Days #30 ea 10/25/21 [Rx Last Taken Unknown] hydrocodone-acetaminophen 1 tab PO Q6H PRN PRN 3 Days #12 tablet 11/08/21 [Rx Last Taken Unknown] Allergy/AdvReac Type Severity Reaction Status Date / Time aspirin Allergy Unknown Nausea Verified 11/08/21 13:13 albuterol AdvReac I GET VERY Verified 11/08/21 13:13 SHAKEY/HYPERVENTILATING Penicillins AdvReac Nausea/Vom/ Verified 11/08/21 13:13 Diarrhea Family History Father Cancer bone cancer Brother Heart disease Surgical History H/O mastectomy History of appendectomy History of section Social History household members: significant other Smoking Status: Current every day smoker tobacco type: cigarettes Tobacco: How many years used: 50 alcohol intake: never substance use type: marijuana and other details: smokes 4 joints a day ROS <CAROL ANN Jennings - Last Filed: 11/08/21 14:32> ROS ED ROS Narrative Constitutional: Negative for fever, chills, malaise. ENT: Negative for sore throat, ear pain, rhinorrhea. CVS: Negative for palpitations, chest pain, syncope. Respiratory: Negative for shortness of breath, cough, orthopnea. GI: Negative for abdominal pain, nausea, vomiting, diarrhea, constipation, m neno, hematochezia. : Negative for dysuria, hematuria or frequency. Neuro: Negative for headache, motor/sensory dysfunction. Skin: Negative for rash, abscess, or wound. Musc: Positive for right knee pain, swelling, trauma. Heme: Negative for easy bruising, bleeding, lymphadenopathy. EXAM <CAROL ANN Jennings - Last Filed: 11/08/21 14:32> Physical Exam Narrative Exam Narrative: CONST: Patient sitting in no acute distress. EYES: Normal inspection. ENT: Normal inspection, moist mucous membranes. NECK: Normal inspection. RESP: No respiratory distress, CTAB. CVS: Regular rate and rhythm, no murmur, no gallop. SKIN: Color normal, no rash, warm, dry, intact. EXTREMITIES: Small right knee effusion with no bruising or overlying skin changes, extensor mechanism intact but pain with range of motion, no palpable defect of the quadriceps tendon, pain with varus stress but no significant laxity, negative anterior/posterior drawer. Normal sensation to light touch, 2+ PT pulse. NEURO: Oriented x4. PSYCH: Normal affect. Const Vital Signs: 11/08/21 13:09 Temperature 97.6 F L Temperature Source Oral Pulse Rate 88 Respiratory Rate 17 Blood Pressure 165/105 H Blood Pressure Mean 125 Pulse Ox 97 Oxygen Delivery Method Room Air <Dr. Howard Levy, DO - Last Filed: 11/08/21 18:54> Physical Exam Const Vital Signs: 11/08/21 13:09 Temperature 97.6 F L Temperature Source Oral Pulse Rate 88 Respiratory Rate 17 Blood Pressure 165/105 H Blood Pressure Mean 125 Pulse Ox 97 Oxygen Delivery Method Room Air MDM <CAROL ANN Jennings - Last Filed: 11/08/21 14:32> [facility] Narrative Medical decision making narrative: Patient had a mechanical fall onto her flexed right knee 2 weeks ago and presents with persistent pain and inability to ambulate. She has a small effusion but no evidence of trauma on exam. Extensor mechanism is intact but she has limited range of motion and pain with varus stress. Extremity is neurovascularly intact. Repeat x-ray interpreted by the ED attending physician shows no missed occult fracture or acute process. Patient was counseled to keep her orthopedic appointment next week and I prescribed a short course of [place] for pain. She will continue using her wheelchair and family can help her with ADLs. She was agreeable to this plan and discharged in stable condition. Radiography Diagnostic Testing: Clinical Impression(s) from Imaging Studies Knee X-Ray 11/08/21 13:30 IMPRESSION: Degenerative arthrosis. Decreased size of the joint effusion. Electronically Signed: Billy Heath MD at 14:34 EST , <Dr. Howard Levy, DO - Last Filed: 11/08/21 18:54> [facility] MDM Narrative Medical decision making narrative: Patient was seen with me. I agree with the history and physical examination. Patient presents with right knee pain that began after a fall 5 days ago. Patient states her pain is worse with certain movements and weightbearing. Patient denies any paresthesias or weakness. Patient states she had a knee x-ray done initially which was negative. Vital signs are stable. Patient is afebrile. Patient is in no acute distress. Musculoskeletal exam reveals tenderness over the anterior aspect of the right knee. There is mild effusion. There is no edema or ecchymosis. There is no bony crepitance or step-off. There is no laxity appreciated. Varus and valgus stress test were negative. Trung's test was negative. Pedal pulses are equal bilaterally. There are no sensory deficits. X-rays of the right knee were repeated. There are 4 views. On my interpretation, there is a mild joint effusion which is improved compared to previous x-ray. There is no acute fracture. There are some degenerative changes. Radiologist also interpreted the x-rays and agrees. Patient was advised of her findings. Patient was instructed to ice and elevate the right knee. Patient was instructed to follow-up with her primary care physician in 5 to 7 days. Patient and family understood and were agreeable with the plan. All questions were answered. Radiography Diagnostic Testing: Clinical Impression(s) from Imaging Studies Knee X-Ray 11/08/21 13:30 IMPRESSION: Degenerative arthrosis. Decreased size of the joint effusion. Electronically Signed: Billy Heath MD at 14:34 EST , Discharge Plan Triage Chief Complaint: Lower Extremity Injury ED Provider: Sylvie Rosas Dx/Rx/DC Orders Clinical Impression: Acute pain of right knee Prescriptions: New hydrocodone-acetaminophen 5-325 mg tablet 1 tab PO Q6H PRN PRN (Reason: pain) 3 Days Qty: 12 RF: 0 No Action amlodipine 10 mg tablet 10 mg PO DAILY Qty: 90 RF: 3 anastrozole 1 mg tablet 1 mg PO DAILY Qty: 90 RF: 0 cholecalciferol (vitamin D3) 1,000 UNIT tablet 2,000 unit PO DAILY RF: 0 albuterol sulfate 90 mcg/actuation HFA aerosol inhaler 2 puff INHALATION Q4H PRN (Reason: SOB) RF: 0 carvedilol 12.5 mg tablet 12.5 mg PO Q12H RF: 0 lisinopril 20 mg tablet 20 mg PO DAILY RF: 0 (DME) FreeStyle Test Strip See Rx Instructions .ROUTE .MEDSUPPLY RF: 0 potassium chloride [Klor-Con M20] 20 mEq tablet,ER particles/crystals 20 meq PO BIDCM RF: 0 (DME) blood-glucose meter [FreeStyle System Kit] Kit See Rx Instructions .ROUTE .MEDSUPPLY RF: 0 doxazosin 2 mg tablet 2 mg PO DAILY RF: 0 (DME) pen needle, diabetic [Unifine Pentips] 29 gauge x 1/2 needle See Rx Instructions .ROUTE .MEDSUPPLY RF: 0 (DME) compress.stocking,knee,reg,lrg Misc See Rx Instructions MISCELLANEOUS RF: 0 (DME) lancets [FreeStyle Lancets] 28 gauge misc See Rx Instructions .ROUTE .MEDSUPPLY RF: 0 citalopram 10 mg Tablet 10 mg PO DAILY 30 Days Qty: 30 RF: 0 nicotine 21 mg/24 hr Patch 24 Hour 21 mg transdermal DAILY 30 Days Qty: 30 RF: 0 clopidogrel [Plavix] 75 mg tablet 75 mg PO DAILY 30 Days Qty: 30 RF: 0 calcium carbonate 600 mg calcium (1,500 mg) tablet 600 mg PO BID Qty: 180 RF: 1 metformin 500 mg tablet 500 mg PO BIDCM Qty: 60 RF: 1 levothyroxine 100 mcg tablet 100 mcg PO DAILY@0600 Qty: 60 RF: 3 Primary Care Provider: Tera Butts Referrals: Tera Butts MD [Primary Care Provider] - Disposition Disposition: Home, Self Care Discharge Date/Time: 11/08/21 14:50
--- NOTE | 2021-11-08 13:30 | RAD_ITS ---
STUDY: X-RAY - RIGHT KNEE REASON FOR EXAM: Female, 66 years old. Injury/Pain TECHNIQUE: 4 view(s) of the knee. COMPARISON: Comparison is made with prior examination dated 10/30/2021. FINDINGS: Normal visualized distal femur. Normal visualized proximal tibia and fibula. Normal proximal tibiofibular articulation. There is mild degenerative arthrosis of the medial femorotibial compartment. Normal lateral femorotibial compartment. Normal patellofemoral articulation. Chondrocalcinosis. Small residual joint effusion. RAD/Knee 4 or More Views IMPRESSION: Degenerative arthrosis. Decreased size of the joint effusion. Electronically Signed: Billy Heath MD at 14:34 EST ,
== END 2021-11-08 14:50 | disposition home or self-care (01) ==
PROVIDERS: Emergency Provider Physician Assistant; PCP Internal Medicine; Visit Provider Physician Assistant
DX: M25.561 Pain in right knee (principal); E11.9 Type 2 diabetes mellitus without complications; F12.90 Cannabis use, unspecified, uncomplicated; M25.461 Effusion, right knee; R26.2 Difficulty in walking, not elsewhere classified; I10 Essential (primary) hypertension; F17.210 Nicotine dependence, cigarettes, uncomplicated
CPT/HCPCS: 73564; 99284

== ENCOUNTER 2021-12-26 12:30 | Outpatient (RCR) | payer BC, SELFPAY ==
--- NOTE | 2021-11-20 13:22 | HP.PTEVAL_ITS ---
Patient's Visit Information MELODY HUGGINS is a 66 year old F referred to Physical Therapy by CAROL ANN Mott with a diagnosis of Right Knee Pain. Date of Evaluation: 11/20/21 Physical Therapist: Ruchi Fitzpatrick DPT - Visit Plan Frequency: 3x /Week Duration: 3 Weeks Plan: Focus on LE and core strength/stabilization and functional movement. Gait belt and FWW. HEP Given IE: Seated marching, HR/TR, LAQ- Standing for 2 min every hour and walking to/from the bathroom instead of being pushed in an office chair. Encouraged movement! - Subjective October 11- coming home from hospital- stay was due to HTN and high blood sugar- she fell and landed on her right knee. She has been having problems with it since then. Her daughter has been putting a lidocaine patch for the soreness which has been helping. She has been to the Er 2x for x-rays which were negative. She has pain on the medial patella and medial joint line. Worst: 10/10 Agg: movement. She is no longer walking- prior to the fall she was using a walker but has not been walking since the fall. She has to have help transferring- because her knee hurts so bad. She does not put any weight on the right LE. Best: 0/10 when she is sleeping. Sleep: not disturbed- sleeps in a bed. and daughter help at home. Prior to the fall she was doing all of her own dressing and bathing. She is now fully dependent on her caregivers to help with all ADL's. She has a wheelchair- she spends most of her day at the dining room table- in an office chair with wheels. She was up moving around a lot prior to the fall- rollerator. She was able to perform transfers indep. She reports pain is 8/10 while she is sitting in the wheelchair. Pain radiates to the hip. Describes the pain as sharp and dull depends on what she is doing. Her goals is to be able to walk again. She reports no N/T in her toes. Went to see ortho and sent her to PT. No MRI at this time and pain medication which patient reports did not help. No stairs at home. Work: does not work. PMHx/ Meds: no change since saw ortho. - Objective Posture: FH, RS- can correct but is unable to maintain. Gait: 10 feet- FWW- stand by assist- slow beth and decreased step length. HR/TR: able with UE A. Standing: weight shift fully to the right LE. Balance: sitting: good, Standing: static: fair minus, Dynamic: poor. ROM: 10 degrees from neutral- 100 degrees. Strength: Core: poor, Hip: 3/5, Knee: 2+/5, Ankle: 4-/5. Patient gives poor effort during evaluation- has great potential if she is willing to participate and work on things at home. - Balance/Special Test Scores Lower Extremity Functional Score: 9 - Goals Goal 1:: Patient will be I with HEP and progression Goal Time Frame: 4-6 Weeks Goal 2:: Patient will transfer mod I with LRD Goal Time Frame: 4-6 Weeks Goal 3:: Patient will ambulate >300 feet with mod I and LRD Goal Time Frame: 4-6 Weeks Goal 4:: Patient will demo 4/5 strength in LE Goal Time Frame: 4-6 Weeks - Rehabilitation Potential Physical Therapy Diagnosis: Patient presents with hypomobility- she has decreased LE and core strength/stabilization, flex and muscular endurance leading to abnormal gait pattern and decreased ability to perform ADL's. Rehabilitation Potential: Fair - Anticipated Interventions Patient/Client Instruction: Educate patient on: Benefits of Fitness Program Therapeutic Exercise to Include: Strength training, Endurance training, Balance training, Coordination, Agility training, Body mechanics, Postural training, Flexibilty training, Gait and locomotor training, Neuromotor development, Dynamic Lumbar Stabilization, Scapular Strength/Stabilization For the Purpose of:: To improve muscle performance and motor function TENS: Yes Cryotherapy (ice pack, ice massage): Yes Thermo therapy (hot pack): Yes Ultrasound (thermal/non thermal): Yes Thank you for the opportunity to evaluate your patient. For Medicare and Medicare HMO plans, please review the plan of care and approve it. It will need to be FAXED BACK to us at [phone] for Medicare purposes. For Medicare only, by signing this I certify the plan of care. Please let me know if there are questions or concerns regarding this plan of care. Physician Signature: Date:
--- NOTE | 2021-12-17 12:59 | HP.PTREVAL ---
CAROL ANN Mott, It has been my pleasure to treat MELODY HUGGINS over the last 7 visits for Right Knee Pain. Please see the progress note below for an update on the physical therapy plan of care! Subjective: Patient reports that the pain is still really bad. The cold weather really bothers her. 07/15 yesterday. She is moving more at home. They are planning to go see ortho about the knee. The pain is all over the front of the knee and radiating to the hip. Sleep is the worst- in the bed- back- she was a side but she prefers to be on her back now. She has been doing some exercise at home. She is using the office chair at home to get around- but she is using the walker at home too. She is still sitting most of the day. Objective/Function: Posture: FH, RS- can correct but is unable to maintain. Gait: 150 feet- FWW- stand by assist- slow beth and decreased step length. HR/TR: able with UE A. Standing: weight shift fully to the right LE. Balance: sitting: good, Standing: static: fair minus, Dynamic: poor. ROM: 10 degrees from neutral- 115 degrees. Strength: Core: poor, Hip: 3+/5, Knee: 3+/5, Ankle: 4/5. Plan Plan: 12/17/21: Continue with POC 3x a week for 4 weeks to progress towards functional mobility. Focus on LE and core strength/stabilization and functional movement. Gait belt and FWW. Balance/Gait/Functional tests - Balance/Special Test Scores Lower Extremity Functional Score: 15 Goals Goal 1:: Patient will be I with HEP and progression Goal Time Frame: 4-6 Weeks Goal Progress: Progressing Goal 2:: Patient will transfer mod I with LRD Goal Time Frame: 4-6 Weeks Goal Progress: Goal Met Goal 3:: Patient will ambulate >300 feet with mod I and LRD Goal Time Frame: 4-6 Weeks Goal Progress: Progressing Goal 4:: Patient will demo 4/5 strength in LE Goal Time Frame: 4-6 Weeks Goal Progress: Progressing Anticipated Interventions Patient/Client Instruction: Educate patient on: Benefits of Fitness Program Therapeutic Exercise to Include: Strength training, Endurance training, Balance training, Coordination, Agility training, Body mechanics, Postural training, Flexibilty training, Gait and locomotor training, Neuromotor development, Dynamic Lumbar Stabilization, Scapular Strength/Stabilization For the Purpose of:: To improve muscle performance and motor function TENS: Yes Cryotherapy (ice pack, ice massage): Yes Thermo therapy (hot pack): Yes Ultrasound (thermal/non thermal): Yes Please do not hesitate to contact me at [phone] by phone or if you have questions or concerns regarding this new plan of care! Sincerely, AMA AdanT
--- NOTE | 2022-03-20 10:36 | HP.PT.NRP ---
MELODY HUGGINS was seen in my office for initial evaluation on 11/20/21. The following Plan of Care was established for this patient: Initial Frequency: 3x /Week Initial Duration: 3 Weeks Patient/Client Instruction: Educate patient on: Benefits of Fitness Program Therapeutic Exercise to Include: Strength training, Endurance training, Balance training, Coordination, Agility training, Body mechanics, Postural training, Flexibilty training, Gait and locomotor training, Neuromotor development, Dynamic Lumbar Stabilization, Scapular Strength/Stabilization For the Purpose of:: To improve muscle performance and motor function TENS: Yes Cryotherapy (ice pack, ice massage): Yes Thermo therapy (hot pack): Yes Ultrasound (thermal/non thermal): Yes This patient was last seen in our office . Pertinent comments regarding their Physical therapy will appear below: Patient has been non compliant with physical therapy and is appropriate for d/c- return to MD for further evaluation At this point I will be discontinuing this patient from physical therapy. I would be happy to see this patient again in the future if found appropriate by the physician. Thank you! Ruchi Fitzpatrick DPT Balance/Gait/Functional tests - Balance/Special Test Scores Lower Extremity Functional Score: 15
== END 2021-12-26 19:00 | disposition home or self-care (01) ==
LOC: PT 12:30
PROVIDERS: PCP Internal Medicine; Referring Provider Physician Assistant; Visit Provider Physician Assistant
DX: M25.561 Pain in right knee (principal)
CPT/HCPCS: 97110; 97161; 97164

== ENCOUNTER 2022-01-26 21:23 | Inpatient (IN) | payer BC, SELFPAY ==
[2022-01-26 21:24] VITALS: BP 203/139; PULSE 94; RESP 18; TEMP 36.6; O2SAT 87; BMI 53.6
[2022-01-26 21:46] LABS: Bedside Glucose 401 mg/dL (74-106)
--- NOTE | 2022-01-26 21:47 | EKG12_ITS ---
Test Reason : HYPERGLYCEMIA Blood Pressure : / mmHG Vent. Rate : 093 BPM Atrial Rate : 093 BPM P-R Int : 152 ms QRS Dur : 084 ms QT Int : 380 ms P-R-T Axes : 064 007 242 degrees QTc Int : 472 ms Normal sinus rhythm ST & T wave abnormality, consider inferolateral ischemia Abnormal ECG Confirmed by KATHARINA LEO, MYRON ([id number]), research editor KENDELL FERNÁNDEZ ([id number]) on 01/29/2022 9:24:26 AM Referred By: Confirmed By:MYRON POSADAS MD
[2022-01-26 22:00] LABS: Absolute Lymphocyte Count 2.52 X10^3/uL (0.83-4.51); Absolute Neutrophil Count 9.4 X10^3/uL (2.0-7.7); Basophil# 0.13 X10^3/uL; Eosinophil# 0.16 X10^3/uL; Eosinophils% 1.2 % (0-5); Hematocrit 48.2 % (37-47); Hemoglobin 16.4 g/dL (12.0-15.0); Lymphocyte # 2.52 X10^3/ul (0.83-4.51); Lymphocyte % 19.6 % (19-41); Mean Corpuscular Hgb 28.2 pg (27.0-32.0); Mean Platelet Vol. 10.9 fl (6.2-12.0); Monocyte# 0.56 X10^3/uL; Monocyte% 4.4 % (0-10); NRBC Flagged by Analyzer 0 % (0-5); Neutrophil # 9.38 X10^3/uL (2.7-7.7); Neutrophil % 73.2 % (47-70); Platelet Count 338 K/mm3 (150-450); RBC Distribution Width CV 14.4 % (11.6-14.6); Red Blood Count 5.81 M/mm3 (4.2-5.4); White Blood Count 12.8 K/mm3 (4.4-11.0)
--- NOTE | 2022-01-26 22:00 | RAD_ITS ---
STUDY: X-RAY CHEST REASON FOR EXAM: Female, 66 years old. cough , hypertension, hyperglycemia TECHNIQUE: AP COMPARISON: 10/03/2021 FINDINGS: Left mastectomy. EKG leads project over the chest. The lungs are clear and expanded. There is no demonstrated pleural abnormality. Normal size heart. Normal mediastinum and jason. Normal visualized pulmonary arteries. There is atherosclerotic tortuosity of the aortic arch and descending thoracic aorta. No acute bony process. There is no demonstrated abnormality of the visualized soft tissue structures of the upper abdomen. RAD/Chest 1 View (Portable) IMPRESSION: Nonacute portable x-ray examination of the chest. Electronically Signed: Jose A Wang MD ([place]) at 22:25 EDT ,
[2022-01-26 22:18] LABS: AST(SGOT) 14 U/L (15-37); Alanine Aminotransfer ALT/SGPT 15 U/L (13-56); Alkaline Phosphatase 186 U/L (45-117); Anion Gap 10 (5-15); BUN 17 mg/dL (7-18); BUN/Creat Ratio 10.8 RATIO (10-20); Calcium,Total 9.5 mg/dL (8.5-10.1); Chloride 93 mmol/L (98-107); Creatinine, Serum 1.57 mg/dL (0.55-1.02); EST Glomerular Filtration Rate 35 mL/min (>60); Est Glom Filt Rate - Afr Amer 42 mL/min (>60); Estimated Creatinine Clearance 24.98 ml/min; Globulin 4.2 g/dL (2.2-4.2); Glucose 423 mg/dL (74-106); Potassium 2.8 mmol/L (3.5-5.1); Protein, Total 7.2 g/dL (6.4-8.2); Sodium Level 132 mmol/L (136-145)
[2022-01-26] MEDS: Ipratropium 0.5 MG/2.5 ML SOLUTION INHALATION (22:19)
[2022-01-26 23:00] LABS: Mucous, Urine 0 SEEN /hpf (<or=2+); Red Blood Cells-Urine 0 SEEN /hpf (0-5); Squamous Epithelial Cells - UA 0 SEEN /hpf (5-10); White Blood Cells 0 SEEN /hpf (0-5)
[2022-01-26 23:01] LABS: Color, Urine Yellow (Yellow); Glucose, Dipstick 1000 mg/dl (Normal); Ketone-Dipstick 15 mg/dl (Negative); Leukocyte Esterase-Dipstick Negative /ul (Negative); Nitrite-Dipstick Positive (Negative); Occult Blood-Urine 25 /ul (Negative); Protein-Dipstick 500 mg/dl (Negative); Specific Gravity, Urine 1.015 (1.002-1.030); Urine Bilirubin Dipstick Negative (Negative); Urine Clarity Sl. Cloudy (Clear); Urine Urobilinogen Normal (Normal)
[2022-01-26] MEDS: Potassium Chloride Oral Tablet 20 MEQ 40 MEQ PO (23:08)
[2022-01-26] MEDS: 0.9% Normal Saline 1,000 ML 150 ML IV (23:08)
[2022-01-26 23:13] VITALS: BP 194/127; PULSE 89; RESP 11; O2SAT 93
[2022-01-26 23:19] LABS: Bacteria 3+ /hpf (None Seen)
[2022-01-27] VITALS (17 sets, daily range): BP systolic 125–191; BP diastolic 87–130; PULSE 71–85; RESP 15–20; TEMP 36.3–37.1; O2SAT 84–95; BMI 23.5
[2022-01-27] MEDS: Labetalol 100 MG/20 ML Vial 10 MG IV (00:05)
[2022-01-27 00:06] LABS: Bedside Glucose 394 mg/dL (74-106)
--- NOTE | 2022-01-27 00:09 | EDS_ITS ---
HPI History of Present Illness Chief Complaint: Hyperglycemia Informant: patient Onset/Context/Timing Onset: Days Narrative Narrative: Patient presents via EMS secondary to elevated blood pressure and blood sugar. She is supposed to be on prescription medication for both but states she stopped taking her medications on January 12. She developed URI symptoms with mild cough 2 days ago. Blood pressure on arrival 203/139. [facility] Medical History Arthritis Asthma Breast cancer Carpal tunnel syndrome Constipation CVA (cerebral vascular accident) Diabetes Flu vaccine need Hearing problem High blood pressure Hypertension Noncompliance Right hip pain Right knee pain Thyroid disease Tobacco abuse Vertigo Vision problems Home Medications compress.stocking,knee,reg,lrg 10/04/21 [History Last Taken Unknown] nicotine 21 mg TRANSDERMAL DAILY 30 Days #30 ea 10/25/21 [Rx Last Taken Unknown] shower chair #1 ea 11/15/21 [Rx Last Taken Unknown] cyclobenzaprine 5 mg tablet 5 mg PO BID PRN #30 tab 01/04/22 [Rx Last Taken Unknown] lidocaine 5 % topical patch 1 patch TOPICAL DAILY PRN #30 ea 01/04/22 [Rx Last Taken Unknown] acetaminophen 325 mg capsule 325 - 650 mg PO Q6H PRN #90 cap 01/15/22 [Rx Last Taken Unknown] albuterol sulfate 90 mcg/actuation aerosol inhaler 2 puff INHALATION Q4H PRN #8.5 g 01/15/22 [Rx Last Taken Unknown] amlodipine 10 mg tablet 10 mg PO DAILY #90 tab 01/15/22 [Rx Last Taken Unknown] anastrozole 1 mg tablet 1 mg PO DAILY #90 tab 01/15/22 [Rx Last Taken Unknown] blood sugar diagnostic #100 ea 01/15/22 [Rx Last Taken Unknown] blood-glucose meter #1 ea 01/15/22 [Rx Last Taken Unknown] calcium carbonate 600 mg calcium (1,500 mg) tablet 600 mg PO BID #180 tab 01/15/22 [Rx Last Taken Unknown] carvedilol 12.5 mg tablet 12.5 mg PO Q12H #180 tab 01/15/22 [Rx Last Taken Unknown] cholecalciferol (vitamin D3) 50 mcg (2,000 unit) tablet 2,000 unit PO DAILY #90 tab 01/15/22 [Rx Last Taken Unknown] citalopram 10 mg tablet 10 mg PO DAILY #90 tab 01/15/22 [Rx Last Taken Unknown] clopidogrel 75 mg tablet 75 mg PO DAILY 30 Days #30 tab 01/15/22 [Rx Last Taken Unknown] doxazosin 2 mg tablet 2 mg PO DAILY #90 tab 01/15/22 [Rx Last Taken Unknown] lancets 28 gauge #100 ea 01/15/22 [Rx Last Taken Unknown] levothyroxine 100 mcg tablet 100 mcg PO DAILY@0600 #90 tab 01/15/22 [Rx Last Taken Unknown] lisinopril 20 mg tablet 20 mg PO DAILY #90 tab 01/15/22 [Rx Last Taken Unknown] metformin 500 mg tablet 500 mg PO BIDCM #180 tab 01/15/22 [Rx Last Taken Unknown] pen needle, diabetic 29 gauge x 1/2 #100 ea 01/15/22 [Rx Last Taken Unknown] potassium chloride 20 mEq tablet,extended release(part/cryst) 20 meq PO BIDCM #180 tab 01/15/22 [Rx Last Taken Unknown] Allergy/AdvReac Type Severity Reaction Status Date / Time aspirin Allergy Unknown Nausea Verified 01/26/22 21:29 albuterol AdvReac I GET VERY Verified 01/26/22 21:29 SHAKEY/HYPERVENTILATING Penicillins AdvReac Nausea/Vom/ Verified 01/26/22 21:29 Diarrhea Family History Father Cancer bone cancer Brother Heart disease Surgical History H/O mastectomy History of appendectomy History of section Social History household members: spouse Smoking Status: Current every day smoker tobacco type: cigarettes Tobacco: How many years used: 50 alcohol intake: never substance use type: marijuana and other details: smokes 4 joints a day ROS ROS ED Constitutional Constitutional ED: Denies chills or fever(s) Eyes Eyes: Denies change in vision ENT ENT ED: Denies sore throat Cardiovascular Cardiovascular: Denies chest pain Respiratory/Chest Respiratory/Chest: Reports cough and dyspnea; Denies sputum Gastrointestinal Gastrointestinal: Reports other Details: Decreased appetite ; Denies abdominal pain, diarrhea, nausea or vomiting Musculoskeletal Musculoskeletal: Denies back pain Integumentary Denies rash Neurologic Neurologic: Reports weakness; Denies headache(s) Endocrine Endocrinology: Reports polydipsia and polyuria Allergic/Immunologic Allergic/Immunologic ED: Denies urticaria EXAM Physical Exam Const Vital Signs: 01/26/22 21:24 01/26/22 23:13 01/27/22 00:16 Temperature 98 F Temperature Source Oral Pulse Rate 94 89 82 Respiratory Rate 18 11 L 18 Blood Pressure 203/139 H 194/127 H 189/107 H Blood Pressure Mean 160 149 134 Pulse Ox 87 93 84 Oxygen Delivery Method Room Air Nasal Cannula Room Air Oxygen Flow Rate (L/min) 2 Positive well nourished and well developed General Appearance ED: well developed HEENT Reports dry mucous membranes Mouth ED: Yes dry mucous membranes Mouth: dry mucous membranes Eyes PERRL and EOMs intact bilaterally Neck supple Chest Wall inspection of chest normal and palpation of chest normal Resp normal respiratory effort Auscultation: wheezes Cardio regular rate and regular rhythm GI non-tender Auscultation: normoactive bowel sounds Palpation: soft Extremity normal to inspection Neuro oriented x3 Neuro Narrative: Chronic weakness secondary to prior stroke. No new deficits appreciated. Sensorium / Orientation: alert Psych mental status grossly normal Skin no rashes or lesions noted MDM MDM MDM Narrative Medical decision making narrative: Patient given IV fluids. The time of my examination blood pressure is 169/129. Lab work, EKG, chest x-ray, urinalysis ordered. Lab Data Attestation: I reviewed the patient's lab results. Labs: Laboratory Results - last 24 hr 01/26/22 01/26/22 01/26/22 21:36 21:43 21:43 WBC 12.8 H RBC 5.81 H Hgb 16.4 H Hct 48.2 H MCV 83.0 MCH 28.2 MCHC 34.0 RDW Std Deviation 43.0 RDW Coeff of Chad 14.4 Plt Count 338 MPV 10.9 Immature Gran % (Auto) 0.600 Neut % (Auto) 73.2 H Lymph % (Auto) 19.6 [place] % (Auto) 4.4 Eos % (Auto) 1.2 Baso % (Auto) 1.0 Absolute Neuts (auto) 9.4 H Absolute Lymphs (auto) 2.52 Nucleated RBC % 0 Sodium 132 L Potassium 2.8 L Chloride 93 L Carbon Dioxide 29.0 Anion Gap 10 BUN 17 Creatinine 1.57 H Estim Creat Clear Calc 24.98 Est GFR (MDRD) Af Amer 42 L Est GFR (MDRD) Non-Af 35 L BUN/Creatinine Ratio 10.8 Glucose 423 H Calcium 9.5 Total Bilirubin 0.50 Direct Bilirubin 0.10 AST 14 L ALT 15 Alkaline Phosphatase 186 H Total Protein 7.2 Albumin 3.0 L Globulin 4.2 Urine Color Urine Clarity Urine pH Ur Specific [place] Urine Protein Urine Glucose (UA) Urine Ketones Urine Occult Blood Urine Nitrite Urine Bilirubin Urine Urobilinogen Ur Leukocyte Esterase Urine RBC Urine WBC Ur Squamous Epith Cells Urine Bacteria Urine Mucus Acetone Level POC Glucose 401 H 01/26/22 01/26/22 01/27/22 21:43 22:52 00:01 WBC RBC Hgb Hct MCV MCH MCHC RDW Std Deviation RDW Coeff of Chad Plt Count MPV Immature Gran % (Auto) Neut % (Auto) Lymph % (Auto) [place] % (Auto) Eos % (Auto) Baso % (Auto) Absolute Neuts (auto) Absolute Lymphs (auto) Nucleated RBC % Sodium Potassium Chloride Carbon Dioxide Anion Gap BUN Creatinine Estim Creat Clear Calc Est GFR (MDRD) Af Amer Est GFR (MDRD) Non-Af BUN/Creatinine Ratio Glucose Calcium Total Bilirubin Direct Bilirubin AST ALT Alkaline Phosphatase Total Protein Albumin Globulin Urine Color Yellow Urine Clarity Sl. Cloudy Urine pH 7.0 Ur Specific [place] 1.015 Urine Protein 500 H Urine Glucose (UA) 1000 H Urine Ketones 15 H Urine Occult Blood 25 H Urine Nitrite Positive H Urine Bilirubin Negative Urine Urobilinogen Normal Ur Leukocyte Esterase Negative Urine RBC 0 SEEN Urine WBC 0 SEEN Ur Squamous Epith Cells 0 SEEN Urine Bacteria 3+ Urine Mucus 0 SEEN Acetone Level NEGATIVE POC Glucose 394 H Radiography Chest X-Ray - ED: 1 View, Read by ED Physician and Chronic Changes Diagnostic Testing: Clinical Impression(s) from Imaging Studies Chest X-Ray 01/26/22 22:00 IMPRESSION: Nonacute portable x-ray examination of the chest. Electronically Signed: Jose A Wang MD (Brooks) at 22:25 EDT Reading Location ID and State: [facility] / [place] , Service support , EKG Initial EKG: Attestation: I personally reviewed and interpreted this EKG as follows: Interpretation: Sinus Rhythm (Sinus at 93 with T wave inversions in the lateral leads. Similar to prior study from September 2021) Treatment and Re-Evaluation Narrative: Patient's blood pressure did elevate again and she is given labetalol for blood pressure. CBC reveals white count of 12.8. Hemoglobin concentrated at 16.4. Chemistry studies significant for potassium of 2.8. This is replaced orally. Glucose is 423. Serum acetone is negative. Urinalysis reveals pos itive nitrites with 3+ bacteria. No white cells are noted at this time. Urine culture will be sent. After IV fluids, blood sugar remains elevated at 394. She is given 10 units of insulin. Patient was given Atrovent treatment. Patient be given Rocephin and Zithromax to cover her COPD exacerbation as well as urine. Patient was initially hypoxic 87% on room air on arrival. After Atrovent treatment she was taken off of nasal cannula and again dropped her O2 sat to 84%. At this time O2 sat is in the low 90s on 2 L nasal cannula. I will speak with hospitalist. Discharge Plan Dx/Rx/DC Orders Clinical Impression: COPD exacerbation, Hypokalemia, UTI (urinary tract infection), Hyperglycemia Disposition Disposition: Acute Care Hospital [facility]
[2022-01-27] MEDS: Insulin Lispro 100 UNIT/ML INSULN.PEN 10 UNIT SC (00:16)
[2022-01-27] MEDS: Labetalol (Prefilled) 20 MG/4 ML 10 MG IV (00:56)
[2022-01-27] MEDS: Ceftriaxone 1 GM/50 ML BAG IV ×2 (01:02→21:37)
[2022-01-27 01:11] LABS: Bedside Glucose 380 mg/dL (74-106)
--- NOTE | 2022-01-27 01:24 | HP.PCM.HOS_ITS ---
HPI - General General Date of Admission: 01/27/22 HPI Narrative MELODY HUGGINS, is a 66 F who presents to the hospital with hyperglycemia. She is also been little bit short of breath and was found to be hypoxic here in the ER down to 84% on room air. All of this started because she stopped taking her medications, she cannot give me a good answer as to why, family mentions that they may have lost some of her pills and moving. They did state that not taking of the medications was accidental. In the ER she was found to be hypertensive with a white count of 12.8 she also had a potassium of 2.8 and a blood sugar in the 400s. Of note she also developed a cough and some shortness of breath about 2 to 3 days ago, but denies any significant sick contacts around her. [facility] Medical History Arthritis Asthma Breast cancer Carpal tunnel syndrome Constipation CVA (cerebral vascular accident) Diabetes Flu vaccine need Hearing problem High blood pressure Hypertension Noncompliance Right hip pain Right knee pain Thyroid disease Tobacco abuse Vertigo Vision problems Home Medications compress.stocking,knee,reg,lrg 10/04/21 [History Last Taken Unknown] nicotine 21 mg TRANSDERMAL DAILY 30 Days #30 ea 10/25/21 [Rx Last Taken Unknown] shower chair #1 ea 11/15/21 [Rx Last Taken Unknown] cyclobenzaprine 5 mg tablet 5 mg PO BID PRN #30 tab 01/04/22 [Rx Last Taken Unknown] lidocaine 5 % topical patch 1 patch TOPICAL DAILY PRN #30 ea 01/04/22 [Rx Last Taken Unknown] acetaminophen 325 mg capsule 325 - 650 mg PO Q6H PRN #90 cap 01/15/22 [Rx Last Taken Unknown] albuterol sulfate 90 mcg/actuation aerosol inhaler 2 puff INHALATION Q4H PRN #8.5 g 01/15/22 [Rx Last Taken Unknown] amlodipine 10 mg tablet 10 mg PO DAILY #90 tab 01/15/22 [Rx Last Taken Unknown] anastrozole 1 mg tablet 1 mg PO DAILY #90 tab 01/15/22 [Rx Last Taken Unknown] blood sugar diagnostic #100 ea 01/15/22 [Rx Last Taken Unknown] blood-glucose meter #1 ea 01/15/22 [Rx Last Taken Unknown] calcium carbonate 600 mg calcium (1,500 mg) tablet 600 mg PO BID #180 tab 01/15/22 [Rx Last Taken Unknown] carvedilol 12.5 mg tablet 12.5 mg PO Q12H #180 tab 01/15/22 [Rx Last Taken Unknown] cholecalciferol (vitamin D3) 50 mcg (2,000 unit) tablet 2,000 unit PO DAILY #90 tab 01/15/22 [Rx Last Taken Unknown] citalopram 10 mg tablet 10 mg PO DAILY #90 tab 01/15/22 [Rx Last Taken Unknown] clopidogrel 75 mg tablet 75 mg PO DAILY 30 Days #30 tab 01/15/22 [Rx Last Taken Unknown] doxazosin 2 mg tablet 2 mg PO DAILY #90 tab 01/15/22 [Rx Last Taken Unknown] lancets 28 gauge #100 ea 01/15/22 [Rx Last Taken Unknown] levothyroxine 100 mcg tablet 100 mcg PO DAILY@0600 #90 tab 01/15/22 [Rx Last Taken Unknown] lisinopril 20 mg tablet 20 mg PO DAILY #90 tab 01/15/22 [Rx Last Taken Unknown] metformin 500 mg tablet 500 mg PO BIDCM #180 tab 01/15/22 [Rx Last Taken Unknown] pen needle, diabetic 29 gauge x 1/2 #100 ea 01/15/22 [Rx Last Taken Unknown] potassium chloride 20 mEq tablet,extended release(part/cryst) 20 meq PO BIDCM #180 tab 01/15/22 [Rx Last Taken Unknown] Allergy/AdvReac Type Severity Reaction Status Date / Time aspirin Allergy Unknown Nausea Verified 01/26/22 21:29 albuterol AdvReac I GET VERY Verified 01/26/22 21:29 SHAKEY/HYPERVENTILATING Penicillins AdvReac Nausea/Vom/ Verified 01/26/22 21:29 Diarrhea Family History Father Cancer bone cancer Brother Heart disease Surgical History H/O mastectomy History of appendectomy History of section Social History household members: spouse Smoking Status: Current every day smoker tobacco type: cigarettes Tobacco: How many years used: 50 alcohol intake: never substance use type: marijuana and other details: smokes 4 joints a day ROS Constitutional Constitutional: Denies chills, fatigue, fever(s) or malaise Eyes Eyes: Denies blurry vision ENT HEENT: Denies headache(s) or nasal discharge Cardiovascular Cardiovascular: Denies chest pain, dyspnea on exertion or syncope Respiratory/Chest Respiratory/Chest: Reports cough and shortness of breath at rest; Denies shortness of breath with exertion Gastrointestinal Gastrointestinal: Denies constipation, diarrhea, nausea or vomiting Genitourinary Genitourinary: Denies dysuria Neurologic Neurologic: Denies focal weakness, numbness or tremor(s) Psychiatric Psychiatric: Denies anxiety or depression Vital Signs Vital Signs Vital Signs: 01/26/22 21:24 01/26/22 23:13 01/27/22 00:16 Temperature 98 F Temperature Source Oral Pulse Rate 94 89 82 Respiratory Rate 18 11 L 18 Blood Pressure 203/139 H 194/127 H 189/107 H Blood Pressure Mean 160 149 134 Pulse Ox 87 93 84 Oxygen Delivery Method Room Air Nasal Cannula Room Air Oxygen Flow Rate (L/min) 2 01/27/22 00:58 01/27/22 01:00 Temperature 98.7 F Temperature Source Temporal Pulse Rate 81 78 Respiratory Rate 18 15 Blood Pressure 176/130 H 173/123 H Blood Pressure Mean 145 139 Pulse Ox 92 94 Oxygen Delivery Method Room Air Nasal Cannula Oxygen Flow Rate (L/min) 2 Weight Weight: 274 lb 7.608 oz Body Mass Index (BMI) 53.6 Physical Exam Const alert and oriented x3 General Appearance: cooperative HEENT normocephalic Mouth: dry mucous membranes Eyes PERRL, EOMs intact bilaterally and conjunctivae normal Neck supple and no JVD Resp normal respiratory effort, no retractions and no use of accessory muscles Auscultation: wheezes; Negative for crackles, rales or rhonchi Cardio regular rate, regular rhythm, S1 normal heart sound, S2 normal heart sound and no murmurs GI soft to palpation, non-tender and non-distended; Negative for hepatosplenomegaly Extremity no clubbing, cyanosis or edema Skin no rashes or lesions noted Neuro no focal motor deficits and no sensory deficits noted Psych affect normal Appearance: appropriate Results Lab / Micro Data Result Diagrams: 01/26/22 21:43 04/23/22 21:43 Labs: Laboratory Results - last 24 hr 01/26/22 21:36: POC Glucose 401 H 01/26/22 21:43: WBC 12.8 H, RBC 5.81 H, Hgb 16.4 H, Hct 48.2 H, MCV 83.0, MCH 28.2, MCHC 34.0, RDW Std Deviation 43.0, RDW Coeff of Chad 14.4, Plt Count 338, MPV 10.9, Immature Gran % (Auto) 0.600, Neut % (Auto) 73.2 H, Lymph % (Auto) 19.6, [place] % (Auto) 4.4, Eos % (Auto) 1.2, Baso % (Auto) 1.0, Absolute Neuts (auto) 9.4 H, Absolute Lymphs (auto) 2.52, Nucleated RBC % 0 01/26/22 21:43: Sodium 132 L, Potassium 2.8 L, Chloride 93 L, Carbon Dioxide 29.0, Anion Gap 10, BUN 17, Creatinine 1.57 H, Estim Creat Clear Calc 24.98, Est GFR (MDRD) Af Amer 42 L, Est GFR (MDRD) Non-Af 35 L, BUN/Creatinine Ratio 10.8, Glucose 423 H, Calcium 9.5, Total Bilirubin 0.50, Direct Bilirubin 0.10, AST 14 L, ALT 15, Alkaline Phosphatase 186 H, Total Protein 7.2, Albumin 3.0 L, Globulin 4.2 01/26/22 21:43: Acetone Level NEGATIVE 01/26/22 22:52: Urine Color Yellow, Urine Clarity Sl. Cloudy, Urine pH 7.0, Ur Specific [place] 1.015, Urine Protein 500 H, Urine Glucose (UA) 1000 H, Urine Ke tones 15 H, Urine Occult Blood 25 H, Urine Nitrite Positive H, Urine Bilirubin Negative, Urine Urobilinogen Normal, Ur Leukocyte Esterase Negative, Urine RBC 0 SEEN, Urine WBC 0 SEEN, Ur Squamous Epith Cells 0 SEEN, Urine Bacteria 3+, Urine Mucus 0 SEEN 01/27/22 00:01: POC Glucose 394 H 01/27/22 01:03: POC Glucose 380 H Radiology Impression Chest X-Ray 01/26/22 22:00 IMPRESSION: Nonacute portable x-ray examination of the chest. Electronically Signed: Jose A Wang MD (Brooks) at 22:25 EDT , Assessment & Plan Assessment/Plan (1) COPD exacerbation: (2) Acute respiratory failure with hypoxia: PLAN: 1. Acute hypoxic respiratory failure secondary to COPD exacerbation with possible pneumonia ? White count is elevated to 12, will continue with Rocephin and azithromycin ? Continue with steroids and breathing treatments ? We will continue with oxygen and wean as able ? Incentive spirometry 2. HTN ? She cannot provide a list of her medications ? Will restart blood pressure medications that we have. Listed and make adjustments as necessary, these include Norvasc, Coreg, lisinopril ? Continue with Plavix 3. DM2 ? We will hold any oral medication she may take ? Continue with long-acting and sliding scale insulins ? Accu-Cheks AC at bedtime ? We will make adjustments as necessary 4. Hypothyroidism ? Stable ? Continue with Synthroid 5. Anxiety/depression ? Stable ? Continue with Celexa DVT:Lovenox Charges/Coding Visit Charges Inpatient E&M: 51477 Init Hosp L3
[2022-01-27] MEDS: Carvedilol 12.5 MG Tablet PO ×2 (03:36→13:59)
[2022-01-27] MEDS: 0.9% Normal Saline 1,000 ML 75 ML IV ×2 (03:36→13:56)
[2022-01-27 06:00] LABS: Absolute Lymphocyte Count 2.83 X10^3/uL (0.83-4.51); Absolute Neutrophil Count 8.4 X10^3/uL (2.0-7.7); Basophil# 0.11 X10^3/uL; Basophil% 0.9 % (0-1); Eosinophil# 0.16 X10^3/uL; Eosinophils% 1.3 % (0-5); Hematocrit 41.5 % (37-47); Hemoglobin 13.9 g/dL (12.0-15.0); Lymphocyte # 2.83 X10^3/ul (0.83-4.51); Lymphocyte % 23.3 % (19-41); Mean Corp Hgb Conc 33.5 g/dL (32-36); Mean Corpuscular Hgb 27.5 pg (27.0-32.0); Mean Platelet Vol. 10.5 fl (6.2-12.0); Monocyte# 0.54 X10^3/uL; Monocyte% 4.5 % (0-10); NRBC Flagged by Analyzer 0 % (0-5); Neutrophil # 8.42 X10^3/uL (2.7-7.7); Neutrophil % 69.5 % (47-70); Platelet Count 290 K/mm3 (150-450); RBC Distribution Width CV 14.3 % (11.6-14.6); Red Blood Count 5.06 M/mm3 (4.2-5.4); White Blood Count 12.1 K/mm3 (4.4-11.0)
[2022-01-27] MEDS: Menthol/Lanolin/Calamine/Znox 113 GM Tube 1 APPLIC TOPICAL ×3 (06:29→21:32)
[2022-01-27] MEDS: Levothyroxine 100 MCG Tablet PO (06:29)
[2022-01-27] MEDS: Insulin Lispro 100 UNIT/ML INSULN.PEN SC ×5 (06:30→22:24)
[2022-01-27 06:38] LABS: Anion Gap 9 (5-15); BUN 16 mg/dL (7-18); BUN/Creat Ratio 11.5 RATIO (10-20); Calcium,Total 7.9 mg/dL (8.5-10.1); Chloride 97 mmol/L (98-107); Creatinine, Serum 1.39 mg/dL (0.55-1.02); EST Glomerular Filtration Rate 40 mL/min (>60); Est Glom Filt Rate - Afr Amer 49 mL/min (>60); Estimated Creatinine Clearance 28.21 ml/min; Glucose 438 mg/dL (74-106); Sodium Level 134 mmol/L (136-145)
[2022-01-27] MEDS: Ipratropium/Albuterol Sulfate 3 ML AMPUL.NEB INHALATION ×4 (06:49→19:13)
[2022-01-27 06:50] LABS: Bedside Glucose 395 mg/dL (74-106)
[2022-01-27] MEDS: amLODIPine 10 MG Tablet PO (10:06)
[2022-01-27] MEDS: Clopidogrel Bisulfate 75 MG Tablet PO (10:06)
[2022-01-27] MEDS: Lisinopril 20 MG Tablet PO (10:06)
[2022-01-27] MEDS: Citalopram 10 MG Tablet PO (10:07)
[2022-01-27] MEDS: Enoxaparin 30 MG/0.3 ML Syringe SC (10:07)
[2022-01-27 11:21] LABS: Bedside Glucose 265 mg/dL (74-106)
--- NOTE | 2022-01-27 11:27 | PCM.PN.HOSP ---
Documented by User: Nazanin Hernandez SHAKER SCREEN OPERATOR, SHAKER SCREEN OPERATOR-C 01/27/22 11:40 Subjective Subjective Patient seen and examined. Reports improvement in breathing. Denies cough, fever, chills. Remains on supplemental oxygen. Denies home oxygen use. Objective Data Objective Data Vital Signs: Vital Signs Temp Pulse Resp BP Pulse Ox 97.7 F L 82 16 171/111 H 93 01/27/22 09:54 01/27/22 10:43 01/27/22 10:43 01/27/22 09:54 01/27/22 09:54 Oxygen Flow Rate (L/min) 2 Oxygen Delivery Method Nasal Cannula Weight: 120 lb 9.486 oz Body Mass Index (BMI) 23.5 Intake & Output: Intake and Output for Last 24 Hours 01/25/22 01/26/22 01/27/22 23:59 23:59 23:59 Intake Total 500 / 500 1075 / 1075 Balance 500 / 500 1075 / 1075 Lab / Micro Data Result Diagrams: 01/27/22 05:33 01/27/22 05:33 Labs: Laboratory Results - last 24 hr 01/26/22 21:36: POC Glucose 401 H 01/26/22 21:43: WBC 12.8 H, RBC 5.81 H, Hgb 16.4 H, Hct 48.2 H, MCV 83.0, MCH 28.2, MCHC 34.0, RDW Std Deviation 43.0, RDW Coeff of Chad 14.4, Plt Count 338, MPV 10.9, Immature Gran % (Auto) 0.600, Neut % (Auto) 73.2 H, Lymph % (Auto) 19.6, [place] % (Auto) 4.4, Eos % (Auto) 1.2, Baso % (Auto) 1.0, Absolute Neuts (auto) 9.4 H, Absolute Lymphs (auto) 2.52, Nucleated RBC % 0 01/26/22 21:43: Sodium 132 L, Potassium 2.8 L, Chloride 93 L, Carbon Dioxide 29.0, Anion Gap 10, BUN 17, Creatinine 1.57 H, Estim Creat Clear Calc 24.98, Est GFR (MDRD) Af Amer 42 L, Est GFR (MDRD) Non-Af 35 L, BUN/Creatinine Ratio 10.8, Glucose 423 H, Calcium 9.5, Total Bilirubin 0.50, Direct Bilirubin 0.10, AST 14 L, ALT 15, Alkaline Phosphatase 186 H, Total Protein 7.2, Albumin 3.0 L, Globulin 4.2 01/26/22 21:43: Acetone Level NEGATIVE 01/26/22 22:52: Urine Color Yellow, Urine Clarity Sl. Cloudy, Urine pH 7.0, Ur Specific [place] 1.015, Urine Protein 500 H, Urine Glucose (UA) 1000 H, Urine Ketones 15 H, Urine Occult Blood 25 H, Urine Nitrite Positive H, Urine Bilirubin Negative, Urine Urobilinogen Normal, Ur Leukocyte Esterase Negative, Urine RBC 0 SEEN, Urine WBC 0 SEEN, Ur Squamous Epith Cells 0 SEEN, Urine Bacteria 3+, Urine Mucus 0 SEEN 01/27/22 00:01: POC Glucose 394 H 01/27/22 01:03: POC Glucose 380 H 01/27/22 05:33: WBC 12.1 H, RBC 5.06, Hgb 13.9, Hct 41.5, MCV 82.0, MCH 27.5, MCHC 33.5, RDW Std Deviation 42.0, RDW Coeff of [place] 14.3, Plt Count 290, MPV 10.5, Immature Gran % (Auto) 0.500, Neut % (Auto) 69.5, Lymph % (Auto) 23.3, [place] % (Auto) 4.5, Eos % (Auto) 1.3, Baso % (Auto) 0.9, Absolute Neuts (auto) 8.4 H, Absolute Lymphs (auto) 2.83, Nucleated RBC % 0 01/27/22 05:33: Sodium 134 L, Potassium 3.0 L, Chloride 97 L, Carbon Dioxide 28.0, Anion Gap 9, BUN 16, Creatinine 1.39 H, Estim Creat Clear Calc 28.21, Est GFR (MDRD) Af Amer 49 L, Est GFR (MDRD) Non-Af 40 L, BUN/Creatinine Ratio 11.5, Glucose 438 H, Calcium 7.9 L 01/27/22 06:27: POC Glucose 395 H 01/27/22 11:12: POC Glucose 265 H Radiography Diagnostic Testing: Radiology Impression Chest X-Ray 01/26/22 22:00 IMPRESSION: Nonacute portable x-ray examination of the chest. Electronically Signed: Jose A Wang MD (Brooks) at 22:25 EDT , Physical Exam Const alert and oriented x3 Orientation / Consciousness: awake, oriented to person, oriented to place and oriented to time HEENT normocephalic Mouth: dry mucous membranes Eyes PERRL, EOMs intact bilaterally and conjunctivae normal Neck no lymphadenopathy Resp Auscultation: wheezes and diminished lung sounds Cardio regular rate, regular rhythm and no murmurs Peripheral Pulses: pulses 2+ throughout GI normal to inspection, nondistended, normoactive bowel sounds, non-tender and non-distended Extremity normal to inspection Skin no rashes or lesions noted Lesions: no lesions Rashes: no rashes Trauma: no lacerations or abrasions Neuro CN's II-XII intact bilaterally, no focal motor deficits, no sensory deficits noted and deep tendon reflexes 2+ bilaterally Psych mental status grossly normal and affect normal Assessment & Plan Assessment/Plan (1) COPD exacerbation: PLAN: 1. Acute hypoxic respiratory failure secondary to exacerbation of COPD-patient noted to be hypoxic on room air. Continue supplemental oxygen to maintain O2 above 90%. Will need walking pulse ox prior to discharge. Albuterol and DuoNeb aerosols. IV Solu-Medrol. Low suspicion for pneumonia. Elevated white count likely due to UTI. Chest x-ray without infiltrate. Afebrile. 2. Hypokalemia- replace per protocol. Trend BMP. 3. Acute UTI-on IV Rocephin. Urine culture pending. 4. Hypertension-blood pressure above goal. Continue home regimen. IV hydralazine as needed. 5. Type 2 diabetes [id number] with sliding scale insulin. Hemoglobin A1c 12/12/2021 8.6. On metformin. 6. Chronic kidney disease stage IIIa-appears at baseline. 7. History of CVA-not on aspirin/statin? 8. Hypothyroidism-continue Synthroid. 9. Anxiety/depression-on Celexa DVT prophylaxis-Lovenox subcu This patient was seen by VLADIMIR Berry under the supervision of Dr. Rainey. Documented by User: Dr. Ulises Rainey MD 01/27/22 13:20 Objective Data Lab / Micro Data Result Diagrams: 01/27/22 05:33 01/27/22 05:33
[2022-01-27 12:14] LABS: Magnesium 1.3 mg/dL (1.6-2.6)
[2022-01-27] MEDS: Potassium Chloride Oral Tablet 20 MEQ 40 MEQ PO (12:16)
[2022-01-27 16:01] LABS: Bedside Glucose 394 mg/dL (74-106)
[2022-01-27] MEDS: Insulin Glargine-YFGN 100 UNIT/ML Pen 20 UNIT SC (22:20)
[2022-01-28] VITALS (15 sets, daily range): BP systolic 132–162; BP diastolic 95–104; PULSE 69–89; RESP 16–18; TEMP 36.2–37.2; O2SAT 92–96
[2022-01-28 00:21] LABS: Bedside Glucose > 500 mg/dL (74-106)
[2022-01-28] MEDS: Carvedilol 12.5 MG Tablet PO ×2 (01:25→15:12)
[2022-01-28 02:11] LABS: Bedside Glucose 403 mg/dL (74-106)
[2022-01-28] MEDS: 0.9% Normal Saline 1,000 ML 75 ML IV (03:32)
[2022-01-28 06:28] LABS: Absolute Lymphocyte Count 2.86 X10^3/uL (0.83-4.51); Absolute Neutrophil Count 20.1 X10^3/uL (2.0-7.7); Basophil# 0.06 X10^3/uL; Basophil% 0.3 % (0-1); Hemoglobin 14.5 g/dL (12.0-15.0); Lymphocyte # 2.86 X10^3/ul (0.83-4.51); Mean Corpuscular Hgb 27.8 pg (27.0-32.0); Mean Corpuscular Volume 84.5 fL (81-99); Mean Platelet Vol. 10.5 fl (6.2-12.0); Monocyte# 0.45 X10^3/uL; Monocyte% 1.9 % (0-10); NRBC Flagged by Analyzer 0 % (0-5); Neutrophil # 20.06 X10^3/uL (2.7-7.7); POSITIVE DIFFERENTIAL YES; Platelet Count 342 K/mm3 (150-450); RBC Distribution Width CV 14.6 % (11.6-14.6); RBC Distribution Width SD 44.7 fl (35.1-43.9); Red Blood Count 5.21 M/mm3 (4.2-5.4); White Blood Count 23.9 K/mm3 (4.4-11.0)
[2022-01-28 06:40] LABS: Differential Indicated SCAN CRITERIA MET
[2022-01-28 06:51] LABS: Anion Gap 8 (5-15); BUN 23 mg/dL (7-18); Calcium,Total 8.3 mg/dL (8.5-10.1); Chloride 103 mmol/L (98-107); Creatinine, Serum 1.53 mg/dL (0.55-1.02); EST Glomerular Filtration Rate 36 mL/min (>60); Est Glom Filt Rate - Afr Amer 43 mL/min (>60); Estimated Creatinine Clearance 25.63 ml/min; Glucose 274 mg/dL (74-106); Potassium 3.1 mmol/L (3.5-5.1); Sodium Level 135 mmol/L (136-145)
[2022-01-28] MEDS: Menthol/Lanolin/Calamine/Znox 113 GM Tube 1 APPLIC TOPICAL ×3 (06:51→22:48)
[2022-01-28] MEDS: Insulin Lispro 100 UNIT/ML INSULN.PEN SC ×4 (06:52→22:52)
[2022-01-28] MEDS: Levothyroxine 100 MCG Tablet PO (06:53)
[2022-01-28] MEDS: Ipratropium/Albuterol Sulfate 3 ML AMPUL.NEB INHALATION ×4 (07:00→19:32)
[2022-01-28 07:02] LABS: Differential Comment SCANNED
[2022-01-28 07:06] LABS: Bedside Glucose 269 mg/dL (74-106)
--- NOTE | 2022-01-28 09:10 | CASEMGMT ---
LATASHA BOSTON assessment: Face to Face with patient for initial transition planning/care coordination assessment. LATASHA BOSTON introduced self and role at [facility], pt voices understanding and consents to assessment. Pt is lying in bed in no distress on 3L nc. Pt is A/O x4 and answers all questions appropriately. Care providers, pharmacy, and demographics verified. Presentation: Pt states stopped taking meds and now her BP is high and blood sugar elevated Admitting dx: COPD, pna PCP: Benjamín Specialists: None Preferred [facility]: [facility] Pres[facility] Benef[place] [facility] Living Will/HPOA: Pt does not have LW/HPOA and declines AD info. LNOK: Cullen Dale, ; Beatris Gorman, daughter Living Arrangements: Pt lives and friend in 2 story home with 1 step in and states no concerns at home. Pt's /friend assist with ADL's. Transportation: Pt's family drives and states no transportation concerns. DME/HHC: Pt has the following DME: walker and glucometer. Pt states no need for any further DME. Pt states no preference for DME company at discharge. Pt has no hx of HHC but has been to TCU in past. Pt is agreeable to palliative c/s if physician agreeable. Pt states no concerns with going home at time of discharge. Pt is retired. Pt states smokes about 2 packs cigarettes daily and does not drink ETOH. Pt voices no further concerns/needs. CM to follow for any further discharge planning/needs. Advised pt to ask for CM if any further questions/concerns/needs arise, voices understanding. Pt Goal: Home Plan[place] LATASHA BOSTON
[2022-01-28] MEDS: Anastrozole 1 MG TABLET PO (09:48)
[2022-01-28] MEDS: Lisinopril 20 MG Tablet PO (09:48)
[2022-01-28] MEDS: amLODIPine 10 MG Tablet PO (09:48)
[2022-01-28] MEDS: Clopidogrel Bisulfate 75 MG Tablet PO (09:48)
[2022-01-28] MEDS: Enoxaparin 30 MG/0.3 ML Syringe SC (09:49)
[2022-01-28] MEDS: Citalopram 10 MG Tablet PO (09:49)
[2022-01-28] MEDS: Calcium (Elemental) 500 MG Tablet PO ×2 (09:49→17:36)
[2022-01-28] MEDS: Doxazosin 1 MG Tablet 2 MG PO (09:49)
[2022-01-28] MEDS: Potassium Chloride Oral Soln 20 MEQ/15 ML UDC 60 MEQ PO (10:43)
--- NOTE | 2022-01-28 12:11 | PN.HOSP_ITS ---
Documented by User: Nazanin Hernandez RESIDENTIAL CAREGIVER, RESIDENTIAL CAREGIVER-C 01/28/22 12:18 Subjective Subjective Patient seen and examined. Denies significant shortness of breath. Remains on minimal supplemental oxygen. Denies fever, chills. Objective Data Objective Data Vital Signs: Vital Signs Temp Pulse Resp BP Pulse Ox 98.9 F 89 16 132/102 H 96 01/28/22 10:00 01/28/22 11:21 01/28/22 11:21 01/28/22 10:00 01/28/22 10:00 Oxygen Flow Rate (L/min) 1 Oxygen Delivery Method Nasal Cannula Weight: 120 lb 9.486 oz Body Mass Index (BMI) 23.5 Intake & Output: Intake and Output for Last 24 Hours 01/26/22 01/27/22 01/28/22 23:59 23:59 23:59 Intake Total 500 / 500 2380 / 2380 1120 / 1120 Balance 500 / 500 2380 / 2380 1120 / 1120 Lab / Micro Data Result Diagrams: 01/28/22 06:15 01/28/22 06:15 Labs: Laboratory Results - last 24 hr 01/27/22 05:33: Magnesium 1.3 L 01/27/22 15:49: POC Glucose 394 H 01/27/22 21:39: POC Glucose > 500 H* 01/28/22 02:04: POC Glucose 403 H 01/28/22 06:15: WBC 23.9 H, RBC 5.21, Hgb 14.5, Hct 44.0, MCV 84.5, MCH 27.8, MCHC 33.0, RDW Std Deviation 44.7 H, RDW Coeff of Chad 14.6, Plt Count 342, MPV 10.5, Immature Gran % (Auto) 1.800 H, Neut % (Auto) 84.0 H, Lymph % (Auto) 12.0 L, Meriwether % (Auto) 1.9, Eos % (Auto) 0.0, Baso % (Auto) 0.3, Absolute Neuts (auto) 20.1 H, Absolute Lymphs (auto) 2.86, Nucleated RBC % 0, Differential Comment SCANNED 01/28/22 06:15: Sodium 135 L, Potassium 3.1 L, Chloride 103, Carbon Dioxide 24.0, Anion Gap 8, BUN 23 H, Creatinine 1.53 H, Estim Creat Clear Calc 25.63, Est GFR (MDRD) Af Amer 43 L, Est GFR (MDRD) Non-Af 36 L, BUN/Creatinine Ratio 15.0, Glucose 274 H, Calcium 8.3 L 01/28/22 06:50: POC Glucose 269 H Micro: Microbiology 01/26/22 22:52 Urine, Clean Catch Urine Culture - Preliminary Alpha Hemolytic Streptococcus 01/28/22 07:50 Nasal Secretion SARS-CoV-2 Antigen (Rapid) - Final Physical Exam Const alert and oriented x3 Orientation / Consciousness: awake, oriented to person, oriented to place and oriented to time Nutritional Appearance: cachectic HEENT normocephalic Mouth: dry mucous membranes Eyes PERRL, EOMs intact bilaterally and conjunctivae normal Neck no lymphadenopathy Resp clear to auscultation bilaterally Auscultation: diminished lung sounds Cardio regular rate, regular rhythm and no murmurs Peripheral Pulses: pulses 2+ throughout GI normal to inspection, nondistended, normoactive bowel sounds, non-tender and non-distended Extremity normal to inspection Skin no rashes or lesions noted Lesions: no lesions Rashes: no rashes Trauma: no lacerations or abrasions Neuro CN's II-XII intact bilaterally, no focal motor deficits, no sensory deficits noted and deep tendon reflexes 2+ bilaterally Psych mental status grossly normal Mood & Affect: flat affect Assessment & Plan Assessment/Plan (1) COPD exacerbation: PLAN: 1. Acute hypoxic respiratory failure secondary to exacerbation of COPD-patient noted to be hypoxic on room air. Continue supplemental oxygen to maintain O2 above 90%. Will need walking pulse ox prior to discharge. Albuterol and DuoNeb aerosols. DC IV Solu-Medrol, transition to prednisone. Low suspicion for pneumonia. Elevated white count on admission likely due to UTI, now increased due to steroids. Chest x-ray without infiltrate. Afebrile. 2. Hypokalemia- replace per protocol. Trend BMP. 3. Acute UTI-on IV Rocephin. Urine culture pending. 4. Hypertension-Continue home regimen. IV hydralazine as needed. 5. Type 2 diabetes [id number] with sliding scale insulin. Hemoglobin A1c 12/12/2021 8.6. On metformin. Previously discharged on Lantus 15 units twice daily. Will need resumed at discharge. 6. Chronic kidney disease stage IIIa-appears at baseline. 7. History of CVA-not on aspirin/statin? 8. Hypothyroidism-continue Synthroid. 9. Anxiety/depression-on Celexa DVT prophylaxis-Lovenox subcu This patient was seen by Nazanin Hernandez NP-C under the supervision of Dr. Jackson. Documented by User: Dr. Cate Jackson DO 01/28/22 15:12 Subjective Subjective This patient was seen in conjunction with Nazanin Hernandez NP. The following represents my independent history and physical examination. Please see below for addendum the above. Patient is currently denying any issues. She is an extremely poor historian. She states that she was recently kicked out of her house and not living with her daughter's boyfriend and daughter. She states she is not happy there however she has nowhere else to go at this time. Evidently after her discharge from TCU APS was consulted. It appears that her last 2 admissions are in relationship to medication noncompliance. She had been living alone with her up until this admission and her daughter was helping her manage her diabetes by giving her shots. She is extremely poor knowledge of her medical issues and medications. Objective Data Lab / Micro Data Result Diagrams: 01/28/22 06:15 01/28/22 06:15 Physical Exam Const alert, oriented x3 and no apparent distress Constitutional Narrative: Upper legs white female sitting up in bed, nursing at bedside, patient appears comfortable and is watching television, currently on 1 L nasal cannula without any signs of respiratory distress, patient appears much older than stated age and appears somewhat disheveled and unkept Exam Limitations: other limitations HEENT head/scalp atraumatic and moist oral mucous membranes HEENT Narrative: Dentition is poor, Mallampati is 2, no thrush present Head and Scalp: normocephalic Resp normal respiratory effort, no retractions, no use of accessory muscles and clear to auscultation bilaterally Resp Narrative: Diffusely diminished but clear Auscultation: Negative for crackles, rales, rhonchi or wheezes Cardio regular rate, regular rhythm, S1 normal heart sound, S2 normal heart sound, no murmurs, no rub, no gallops, no clicks and no JVD GI normal to inspection, nondistended, normoactive bowel sounds, soft to palpation, non-tender and non-distended; Negative for hepatosplenomegaly Extremity no clubbing, cyanosis or edema Extremity Narrative: Significant mount of dirt and debris underneath fingernails Peripheral Pulses: Yes pulses 2+ throughout Neuro oriented x3, moves all extremities and no focal motor deficits Sensorium / Orientation: awake and alert Speech: speech normal Assessment & Plan Assessment/Plan (1) Type 2 diabetes mellitus: (2) Hypothyroidism: (3) UTI (urinary tract infection): (4) Noncompliance w/medication treatment due to intermit use of medication: (5) Hypokalemia: (6) Acute respiratory failure with hypoxia: PLAN: Assessment: Acute hypoxic respiratory failure secondary to COPD exacerbation Acute urinary tract infection Hypokalemia Leukocytosis Medication noncompliance CKD stage IIIb Hypothyroidism History of stroke Hypertension History of breast cancer Depression DM-2 COPD with ongoing tobacco abuse Plan: Patient clinically appears to be doing better and we are able to wean oxygen -Continue aerosols -We will wean steroids from Solu-Medrol 40 every 8 to prednisone daily starting tomorrow -This should help with glycemic control as well -COVID-negative/respiratory viral panel negative -We will try to facilitate some assistance at discharge given the patient was predominantly admitted secondary to medication noncompliance -P.o. potassium replacement and recheck potassium in a.m. -Continue home Plavix for history of stroke -Blood pressure and glycemic control has improved since reinitiating home medications -Anticipate discharge in the next 24 hours if patient continues to show improvement in clinical stability Charges/Coding Visit Charges Inpatient E&M: 11693 Subs Hosp L2
[2022-01-28 13:06] LABS: Bedside Glucose 304 mg/dL (74-106)
--- NOTE | 2022-01-28 15:33 | CHAPLAIN ---
Type of Pastoral Visit _x__ Initial Visit ___ Follow-up Visit ___ On-call Visit ___ General Patient Visit ___ Spiritual Assessment ___ Family Conference ___ Bereavement ___ Rapid Response ___ Code Blue ___ Other (describe below) Pastoral Care Referral From _x__ Patient ___ Family ___ Nurse ___ Physician ___ Glass Cylinder Flanger ___ Line Camera Operator ___ Other (describe below) Sacrament/Intervention _x__ Active listening ___ Anointing ___ Anglican ___ Bereavement ___ Communion ___ Tessie exploration ___ ___ Life review _x__ Prayer ___ Reconciliation ___ Sacrament of Sick _x__ Supportive presence ___ Wedding ___ Other (describe below) Pastoral Comments patient has been seen in many previous admissions; pt is always welcoming of spiritual care and visit from fryer operator; pt speaks of her also being sick but has no further information on him; pt asks prayer for her and where she is going next for recovery; pt shows interest in life of this fryer operator and asks questions
[2022-01-28 18:21] LABS: Bedside Glucose 357 mg/dL (74-106)
[2022-01-28] MEDS: Insulin Glargine-YFGN 100 UNIT/ML Pen 15 UNIT SC (22:53)
[2022-01-28] MEDS: Ceftriaxone 1 GM/50 ML BAG IV (22:59)
[2022-01-28 23:00] LABS: Bedside Glucose 236 mg/dL (74-106)
[2022-01-29] VITALS (9 sets, daily range): BP systolic 139–160; BP diastolic 89–110; PULSE 70–95; RESP 18–20; TEMP 36.4–36.8; O2SAT 87–99
[2022-01-29] MEDS: Carvedilol 12.5 MG Tablet PO (01:10)
[2022-01-29 05:35] LABS: Absolute Lymphocyte Count 2.82 X10^3/uL (0.83-4.51); Absolute Neutrophil Count 21.4 X10^3/uL (2.0-7.7); Basophil# 0.06 X10^3/uL; Basophil% 0.2 % (0-1); Hematocrit 44.2 % (37-47); Hemoglobin 14.3 g/dL (12.0-15.0); Lymphocyte # 2.82 X10^3/ul (0.83-4.51); Mean Corp Hgb Conc 32.4 g/dL (32-36); Mean Corpuscular Hgb 27.8 pg (27.0-32.0); Mean Corpuscular Volume 85.8 fL (81-99); Mean Platelet Vol. 10.5 fl (6.2-12.0); Monocyte# 0.97 X10^3/uL; Monocyte% 3.8 % (0-10); NRBC Flagged by Analyzer 0 % (0-5); Neutrophil # 21.42 X10^3/uL (2.7-7.7); Neutrophil % 83.4 % (47-70); POSITIVE DIFFERENTIAL YES; Platelet Count 314 K/mm3 (150-450); RBC Distribution Width CV 15.5 % (11.6-14.6); RBC Distribution Width SD 48.9 fl (35.1-43.9); Red Blood Count 5.15 M/mm3 (4.2-5.4); White Blood Count 25.7 K/mm3 (4.4-11.0)
[2022-01-29 05:38] LABS: Differential Indicated SCAN CRITERIA MET
[2022-01-29 05:53] LABS: Anion Gap 6 (5-15); BUN 26 mg/dL (7-18); BUN/Creat Ratio 17.7 RATIO (10-20); Calcium,Total 8.8 mg/dL (8.5-10.1); Chloride 107 mmol/L (98-107); Creatinine, Serum 1.47 mg/dL (0.55-1.02); EST Glomerular Filtration Rate 38 mL/min (>60); Est Glom Filt Rate - Afr Amer 46 mL/min (>60); Estimated Creatinine Clearance 26.67 ml/min; Glucose 152 mg/dL (74-106); Potassium 3.7 mmol/L (3.5-5.1); Sodium Level 137 mmol/L (136-145)
[2022-01-29] MEDS: Levothyroxine 100 MCG Tablet PO (05:55)
[2022-01-29] MEDS: Menthol/Lanolin/Calamine/Znox 113 GM Tube 1 APPLIC TOPICAL (05:56)
[2022-01-29 06:46] LABS: Differential Comment SCANNED
[2022-01-29] MEDS: Insulin Lispro 100 UNIT/ML INSULN.PEN SC ×2 (07:00→11:13)
[2022-01-29 07:11] LABS: Bedside Glucose 191 mg/dL (74-106)
[2022-01-29] MEDS: predniSONE 20 MG Tablet 40 MG PO (09:04)
[2022-01-29] MEDS: Anastrozole 1 MG TABLET PO (09:04)
[2022-01-29] MEDS: Enoxaparin 30 MG/0.3 ML Syringe SC (09:04)
[2022-01-29] MEDS: Clopidogrel Bisulfate 75 MG Tablet PO (09:05)
[2022-01-29] MEDS: Doxazosin 1 MG Tablet 2 MG PO (09:05)
[2022-01-29] MEDS: Citalopram 10 MG Tablet PO (09:05)
[2022-01-29] MEDS: amLODIPine 10 MG Tablet PO (09:05)
[2022-01-29] MEDS: Lisinopril 10 MG Tablet 30 MG PO (09:05)
[2022-01-29] MEDS: Calcium (Elemental) 500 MG Tablet PO (09:05)
[2022-01-29] MEDS: Glucerna Shake 120 ML LIQUID PO (09:05)
[2022-01-29] MEDS: Insulin Glargine-YFGN 100 UNIT/ML Pen 15 UNIT SC (09:06)
--- NOTE | 2022-01-29 09:57 | CASEMGMT ---
LATASHA BOSTON called [facility] to inquire if patient is active with palliative care. Per Janeen, they received referral for patient but were never able to contact patient to see patient. Palliative screening tool completed at this time. Patient meets criteria for palliative consult. Hospitalist updated and order received for palliative consult. LATASHA BOSTON in to clarify patient's phone number. Patient states she does not know her phone number. Patient states she would like palliative to contact . LATASHA BOSTON inquired if patient would be interested to [facility] to assist with medication management. Patient agreeable to [facility] referral. Patient had no further questions or concerns at this time. LATASHA BOSTON placed referral to [facility] and advised to contact for referral. LATASHA BOSTON sent referral to [facility] and updated to contact for consult.
--- NOTE | 2022-01-29 10:37 | CASEMGMT ---
Addendum entered by Pham Issa 01/29/22 10:43: Patient provided with pulse ox for at home. Original Note: RN DARVIN updated that patient qualifies for home oxygen at discharge. Script received. Patient states she has no preferences for DME and after review of DME providers, agreeable to [employer]. LATASHA BOSTON sent referral to [facility] and patient supplied with [employer] portable tank from supply. CM will continue to follow this patient and plan for a safe discharge.
--- NOTE | 2022-01-29 10:42 | PCM.DC ---
Discharge Instructions Diet Discharge Diet: Low fat / Low cholesterol Activity Discharge Activity: Return to Normal Activity Dressing / Incision Call your doctor if you observe: Fever of 101 or Higher, Shortness of breath, Dizziness and Chest pain Follow Up Care Test Results: Test results from this visit will be discussed in further detail at your follow-up appointment, if applicable. Discharge Plan Admission Admit Date/Time: 01/27/22 00:42 Primary Reason for Your Visit: COPD Attending Provider: Cate Jackson Primary Care Provider: Tera Butts Instructions Additional Instructions / Restrictions: Repeat palliative referral at discharge. Discharge Orders/Prescriptions Prescriptions: New lisinopril 10 mg Tablet 30 mg PO DAILY 30 Days Qty: 90 RF: 0 cephalexin 500 mg capsule 500 mg PO BID Qty: 10 RF: 0 prednisone 10 mg tablet See Taper mg PO DAILY Qty: 30 RF: 0 Basaglar KwikPen U-100 Insulin 100 unit/mL (3 mL) insulin pen 30 unit subcut QPM Qty: 15 RF: 0 Continued cyclobenzaprine 5 mg tablet 5 mg PO BID PRN (Reason: muscle spasm) Qty: 30 RF: 0 lidocaine 5 % adhesive patch,medicated 1 patch topical DAILY PRN (Reason: pain) Qty: 30 RF: 1 nicotine 21 mg/24 hr patch 24 hour 21 mg transdermal DAILY RF: 0 acetaminophen 325 mg capsule 325 - 650 mg PO Q6H PRN (Reason: fever or pain) Qty: 90 RF: 0 albuterol sulfate 90 mcg/actuation HFA aerosol inhaler 2 puff INHALATION Q4H PRN (Reason: SOB) Qty: 8.5 RF: 3 amlodipine 10 mg tablet 10 mg PO DAILY Qty: 90 RF: 3 anastrozole 1 mg tablet 1 mg PO DAILY Qty: 90 RF: 0 (DME) FreeStyle Test Strip See Rx Instructions .ROUTE .MEDSUPPLY Qty: 100 RF: 3 carvedilol 12.5 mg tablet 12.5 mg PO Q12H Qty: 180 RF: 1 cholecalciferol (vitamin D3) 50 mcg (2,000 unit) tablet 2,000 unit PO DAILY Qty: 90 RF: 3 calcium carbonate 600 mg calcium (1,500 mg) tablet 600 mg PO BID Qty: 180 RF: 3 citalopram 10 mg tablet 10 mg PO DAILY Qty: 90 RF: 0 clopidogrel [Plavix] 75 mg tablet 75 mg PO DAILY 30 Days Qty: 30 RF: 0 doxazosin 2 mg tablet 2 mg PO DAILY Qty: 90 RF: 0 (DME) lancets [FreeStyle Lancets] 28 gauge misc See Rx Instructions .ROUTE .MEDSUPPLY Qty: 100 RF: 3 (DME) blood-glucose meter [FreeStyle System Kit] Kit See Rx Instructions .ROUTE .MEDSUPPLY Qty: 1 RF: 0 levothyroxine 100 mcg tablet 100 mcg PO DAILY@0600 Qty: 90 RF: 1 metformin 500 mg tablet 500 mg PO BIDCM Qty: 180 RF: 3 (DME) pen needle, diabetic [Unifine Pentips] 29 gauge x 1/2 needle See Rx Instructions .ROUTE .MEDSUPPLY Qty: 100 RF: 0 potassium chloride [Klor-Con M20] 20 mEq tablet,ER particles/crystals 20 meq PO BIDCM Qty: 180 RF: 1 Discontinued lisinopril 20 mg tablet 20 mg PO DAILY Qty: 90 RF: 3 Referrals / Follow Up: Tera Butts MD [Primary Care Provider] - In 1 Week Disposition Disposition (needs filled in before D/C Order can be placed): Home, Self Care
[2022-01-29] MEDS: Ipratropium/Albuterol Sulfate 3 ML AMPUL.NEB INHALATION (10:55)
--- NOTE | 2022-01-29 11:05 | PCM.DC.SUM ---
Documented by User: Nazanin Hernandez NP, [employer]ELANCE [employer]APHIC DES[employer]ER-C 01/29/22 11:12 Providers Date of Admission: 01/27/22 Date of Discharge: 01/29/22 Primary Care Physician: Dr. Tera Butts MD Reason For Visit: COPD, POSSIBLE PNEUMONIA Diagnosis Discharge Diagnosis (1) Type 2 diabetes mellitus: Status: Chronic Code(s): E11.9 - Type 2 diabetes mellitus without complications (2) Hypothyroidism: Status: Chronic Code(s): E03.9 - Hypothyroidism, unspecified (3) UTI (urinary tract infection): Status: Acute Code(s): N39.0 - Urinary tract infection, site not specified (4) Noncompliance w/medication treatment due to intermit use of medication: Status: Acute Code(s): Z91.14 - Patient's other noncompliance with medication regimen (5) Hypokalemia: Status: Acute Code(s): E87.6 - Hypokalemia (6) Acute respiratory failure with hypoxia: Status: Acute Code(s): J96.01 - Acute respiratory failure with hypoxia Medications at Discharge Home Medications cyclobenzaprine 5 mg tablet 5 mg PO BID PRN #30 tab 01/04/22 lidocaine 5 % topical patch 1 patch TOPICAL DAILY PRN #30 ea 01/04/22 acetaminophen 325 mg capsule 325 - 650 mg PO Q6H PRN #90 cap 01/15/22 albuterol sulfate 90 mcg/actuation aerosol inhaler 2 puff INHALATION Q4H PRN #8.5 g 01/15/22 amlodipine 10 mg tablet 10 mg PO DAILY #90 tab 01/15/22 anastrozole 1 mg tablet 1 mg PO DAILY #90 tab 01/15/22 blood sugar diagnostic #100 ea 01/15/22 blood-glucose meter #1 ea 01/15/22 calcium carbonate 600 mg calcium (1,500 mg) tablet 600 mg PO BID #180 tab 01/15/22 carvedilol 12.5 mg tablet 12.5 mg PO Q12H #180 tab 01/15/22 cholecalciferol (vitamin D3) 50 mcg (2,000 unit) tablet 2,000 unit PO DAILY #90 tab 01/15/22 citalopram 10 mg tablet 10 mg PO DAILY #90 tab 01/15/22 clopidogrel 75 mg tablet 75 mg PO DAILY 30 Days #30 tab 01/15/22 doxazosin 2 mg tablet 2 mg PO DAILY #90 tab 01/15/22 lancets 28 gauge #100 ea 01/15/22 levothyroxine 100 mcg tablet 100 mcg PO DAILY@0600 #90 tab 01/15/22 metformin 500 mg tablet 500 mg PO BIDCM #180 tab 01/15/22 pen needle, diabetic 29 gauge x 1/2 #100 ea 01/15/22 potassium chloride 20 mEq tablet,extended release(part/cryst) 20 meq PO BIDCM #180 tab 01/15/22 nicotine 21 mg TRANSDERMAL DAILY 01/27/22 cephalexin 500 mg PO BID #10 cap 01/29/22 insulin glargine [Basaglar KwikPen U-100 Insulin] 30 unit SUBCUT QPM #15 ml 01/29/22 lisinopril 30 mg PO DAILY 30 Days #90 tab 01/29/22 prednisone See Taper PO DAILY #30 tab 01/29/22 Hospital Course Operations None Procedures None Summary of Care Provided Hospital Course: Patient is a 66-year-old female admitted 01/27/2022 due to shortness of breath and hyperglycemia. 1. Acute hypoxic respiratory failure secondary to exacerbation of COPD-patient noted to be hypoxic on room air. DC IV Solu-Medrol, transition to prednisone taper at discharge. Low suspicion for pneumonia. Elevated white count on admission likely due to UTI, followed by steroid use. Chest x-ray without infiltrate. Afebrile. Patient will require supplemental oxygen at discharge. She is ambulatory in the home. Continue supplement oxygen to maintain O2 at above 90%. Follow-up with PCP in 1 week. Repeat palliative referral at discharge. Previously referred to palliative by PCP however patient did not follow-up/palliative unable to reach patient. 2. Hypokalemia- replaced per protocol. Continue potassium supplementation at discharge. 3. Acute UTI-on IV Rocephin during admission. Keflex at discharge to complete course. 4. Hypertension-Continue home regimen. Lisinopril increased to 30 mg daily. 5. Type 2 diabetes mellitus-Hemoglobin A1c 12/12/2021 8.6%. On metformin. Per PCP notes, patient is to be on insulin however does not appear she has picked up a prescription for insulin/Basaglar since July 2021. Rx for Basaglar 30 units nightly at discharge. Close follow-up with PCP. 6. Chronic kidney disease stage IIIb-appears at baseline. 7. History of CVA-continue Plavix, not on statin. 8. Hypothyroidism-continue Synthroid. 9. Anxiety/depression-on Celexa. 10. History of breast cancer-on letrozole. Physical Exam Const alert and oriented x3 Orientation / Consciousness: awake, oriented to person, oriented to place and oriented to time Nutritional Appearance: cachectic HEENT normocephalic Mouth: dry mucous membranes Eyes PERRL, EOMs intact bilaterally and conjunctivae normal Neck no lymphadenopathy Resp clear to auscultation bilaterally Auscultation: diminished lung sounds Cardio regular rate, regular rhythm and no murmurs Peripheral Pulses: pulses 2+ throughout GI normal to inspection, nondistended, normoactive bowel sounds, non-tender and non-distended Extremity normal to inspection Skin no rashes or lesions noted Lesions: no lesions Rashes: no rashes Trauma: no lacerations or abrasions Neuro CN's II-XII intact bilaterally, no focal motor deficits, no sensory deficits noted and deep tendon reflexes 2+ bilaterally Psych mental status grossly normal Mood & Affect: flat affect Patient seen and examined prior to discharge. Physical assessment as noted above. Patient is stable for discharge with follow up recommendations as noted above. This patient was seen by VLADIMIR Berry under the supervision of Dr. Jackson. Weight / BMI Weight Weight: 120 lb 9.486 oz Body Mass Index (BMI) 23.5 ABG / Lab / Microbiology Data Result Diagrams: 01/29/22 05:20 01/29/22 05:20 Laboratory: Laboratory Results - last 24 hr 01/28/22 12:17: POC Glucose 304 H 01/28/22 17:35: POC Glucose 357 H 01/28/22 22:51: POC Glucose 236 H 01/29/22 05:20: WBC 25.7 H, RBC 5.15, Hgb 14.3, Hct 44.2, MCV 85.8, MCH 27.8, MCHC 32.4, RDW Std Deviation 48.9 H, RDW Coeff of Chad 15.5 H, Plt Count 314, MPV 10.5, Immature Gran % (Auto) 1.600 H, Neut % (Auto) 83.4 H, Lymph % (Auto) 11.0 L, Gooding % (Auto) 3.8, Eos % (Auto) 0.0, Baso % (Auto) 0.2, Absolute Neuts (auto) 21.4 H, Absolute Lymphs (auto) 2.82, Nucleated RBC % 0, Differential Comment SCANNED 01/29/22 05:20: Sodium 137, Potassium 3.7, Chloride 107, Carbon Dioxide 24.0, Anion Gap 6, BUN 26 H, Creatinine 1.47 H, Estim Creat Clear Calc 26.67, Est GFR (MDRD) Af Amer 46 L, Est GFR (MDRD) Non-Af 38 L, BUN/Creatinine Ratio 17.7, Glucose 152 H, Calcium 8.8 01/29/22 06:58: POC Glucose 191 H Microbiology: Microbiology 01/26/22 22:52 Urine, Clean Catch Urine Culture - Preliminary Alpha Hemolytic Streptococcus Mixed Gram Positive Organisms 01/28/22 09:54 Mucosa - Nose Respiratory Panel (PCR) - Final 01/28/22 07:50 Nasal Secretion SARS-CoV-2 Antigen (Rapid) - Final D/C Instructions Discharge Diet: Low fat / Low cholesterol Call your doctor if you observe: Fever of 101 or Higher, Shortness of breath, Dizziness and Chest pain Meaningful Use Info Meaningful Use Diagnoses (Choose all that apply): None applicable Discharge Plan Admission Admit Date/Time: 01/27/22 00:42 Primary Reason for Your Visit: COPD Attending Provider: Cate Jackson Primary Care Provider: Tera Butts Instructions Additional Instructions / Restrictions: Repeat palliative referral at discharge. Discharge Orders/Prescriptions Prescriptions: New lisinopril 10 mg Tablet 30 mg PO DAILY 30 Days Qty: 90 RF: 0 cephalexin 500 mg capsule 500 mg PO BID Qty: 10 RF: 0 prednisone 10 mg tablet See Taper mg PO DAILY Qty: 30 RF: 0 Basaglar KwikPen U-100 Insulin 100 unit/mL (3 mL) insulin pen 30 unit subcut QPM Qty: 15 RF: 0 Continued cyclobenzaprine 5 mg tablet 5 mg PO BID PRN (Reason: muscle spasm) Qty: 30 RF: 0 lidocaine 5 % adhesive patch,medicated 1 patch topical DAILY PRN (Reason: pain) Qty: 30 RF: 1 nicotine 21 mg/24 hr patch 24 hour 21 mg transdermal DAILY RF: 0 acetaminophen 325 mg capsule 325 - 650 mg PO Q6H PRN (Reason: fever or pain) Qty: 90 RF: 0 albuterol sulfate 90 mcg/actuation HFA aerosol inhaler 2 puff INHALATION Q4H PRN (Reason: SOB) Qty: 8.5 RF: 3 amlodipine 10 mg tablet 10 mg PO DAILY Qty: 90 RF: 3 anastrozole 1 mg tablet 1 mg PO DAILY Qty: 90 RF: 0 (DME) FreeStyle Test Strip See Rx Instructions .ROUTE .MEDSUPPLY Qty: 100 RF: 3 carvedilol 12.5 mg tablet 12.5 mg PO Q12H Qty: 180 RF: 1 cholecalciferol (vitamin D3) 50 mcg (2,000 unit) tablet 2,000 unit PO DAILY Qty: 90 RF: 3 calcium carbonate 600 mg calcium (1,500 mg) tablet 600 mg PO BID Qty: 180 RF: 3 citalopram 10 mg tablet 10 mg PO DAILY Qty: 90 RF: 0 clopidogrel [Plavix] 75 mg tablet 75 mg PO DAILY 30 Days Qty: 30 RF: 0 doxazosin 2 mg tablet 2 mg PO DAILY Qty: 90 RF: 0 (DME) lancets [FreeStyle Lancets] 28 gauge misc See Rx Instructions .ROUTE .MEDSUPPLY Qty: 100 RF: 3 (DME) blood-glucose meter [FreeStyle System Kit] Kit See Rx Instructions .ROUTE .MEDSUPPLY Qty: 1 RF: 0 levothyroxine 100 mcg tablet 100 mcg PO DAILY@0600 Qty: 90 RF: 1 metformin 500 mg tablet 500 mg PO BIDCM Qty: 180 RF: 3 (DME) pen needle, diabetic [Unifine Pentips] 29 gauge x 1/2 needle See Rx Instructions .ROUTE .MEDSUPPLY Qty: 100 RF: 0 potassium chloride [Klor-Con M20] 20 mEq tablet,ER particles/crystals 20 meq PO BIDCM Qty: 180 RF: 1 Discontinued lisinopril 20 mg tablet 20 mg PO DAILY Qty: 90 RF: 3 Referrals / Follow Up: Tera Butts MD [Primary Care Provider] - 02/04/22 10:00 am Disposition Disposition (needs filled in before D/C Order can be placed): Home, Self Care Documented by User: Dr. Cate Jackson DO 01/29/22 14:42 Providers Date of Admission: 01/27/22 Reason For Visit: COPD, POSSIBLE PNEUMONIA Medications at Discharge Home Medications cyclobenzaprine 5 mg tablet 5 mg PO BID PRN #30 tab 01/04/22 lidocaine 5 % topical patch 1 patch TOPICAL DAILY PRN #30 ea 01/04/22 acetaminophen 325 mg capsule 325 - 650 mg PO Q6H PRN #90 cap 01/15/22 albuterol sulfate 90 mcg/actuation aerosol inhaler 2 puff INHALATION Q4H PRN #8.5 g 01/15/22 amlodipine 10 mg tablet 10 mg PO DAILY #90 tab 01/15/22 anastrozole 1 mg tablet 1 mg PO DAILY #90 tab 01/15/22 blood sugar diagnostic #100 ea 01/15/22 blood-glucose meter #1 ea 01/15/22 calcium carbonate 600 mg calcium (1,500 mg) tablet 600 mg PO BID #180 tab 01/15/22 carvedilol 12.5 mg tablet 12.5 mg PO Q12H #180 tab 01/15/22 cholecalciferol (vitamin D3) 50 mcg (2,000 unit) tablet 2,000 unit PO DAILY #90 tab 01/15/22 citalopram 10 mg tablet 10 mg PO DAILY #90 tab 01/15/22 clopidogrel 75 mg tablet 75 mg PO DAILY 30 Days #30 tab 01/15/22 doxazosin 2 mg tablet 2 mg PO DAILY #90 tab 01/15/22 lancets 28 gauge #100 ea 01/15/22 levothyroxine 100 mcg tablet 100 mcg PO DAILY@0600 #90 tab 01/15/22 metformin 500 mg tablet 500 mg PO BIDCM #180 tab 01/15/22 pen needle, diabetic 29 gauge x 1/2 #100 ea 01/15/22 potassium chloride 20 mEq tablet,extended release(part/cryst) 20 meq PO BIDCM #180 tab 01/15/22 nicotine 21 mg TRANSDERMAL DAILY 01/27/22 cephalexin 500 mg PO BID #10 cap 01/29/22 insulin glargine [Basaglar KwikPen U-100 Insulin] 30 unit SUBCUT QPM #15 ml 01/29/22 lisinopril 30 mg PO DAILY 30 Days #90 tab 01/29/22 prednisone See Taper PO DAILY #30 tab 01/29/22 Hospital Course Operations None Procedures None Summary of Care Provided Minutes Spent on Discharge: 36 Hospital Course: Mrs. Dale is a 66-year-old white female who presented to the emergency department at [facility] on 01/27/2022 with hyperglycemia. She also complained of being mildly short of breath on presentation and found to be hypoxic in the emergency department with oxygen saturations 84% on room air. She is stated on presentation that she had stopped taking all of her medications but was unable to give a clear reason why she had stopped them. She had not taken her medications since 01/12/2022. Family did mention at the time of admission that they may have lost some of her pills while they were moving. In the emergency department she was found to be markedly hypertensive with a blood pressure of 203/139 on presentation. Her blood sugar was found to be in the 400s. She complained of some upper respiratory emptiness that started approximately 3 to 4 days prior to presentation but had no known sick contacts. She complained of cough and shortness of breath. She denied any fever or chills. Per previous records her medications were obtained and she was restarted on her home medications. She was also placed on treatment for acute exacerbation of COPD to include IV steroids, aerosols, and supplemental oxygen. She had a mildly elevated white count and initially was placed on ceftriaxone and azithromycin. Her COVID test was negative. Her respiratory panel was negative. Her chest x-ray did not show any infiltrate. A urine culture was obtained secondary to some intermittent complaints of dysuria and she was found to have a urinary tract infection with alphahemolytic strep. She was treated with 2 days of ceftriaxone and was discharged with Keflex to complete antibiotic course. Her blood pressure improved significantly once her antihypertensives were reinitiated however she remained not at goal and therefore her lisinopril was increased from 20 mg to 30 mg daily. She was sent home with a prescription for this. On 01/29/2022 we were able to completely wean her off of oxygen at rest however upon reassessment her oxygen saturation was found to be 87% and required 2 L at rest and with ambulation at discharge. She does have previous admissions for noncompliance with her home medications. We did discuss the importance of continuing her home medications as directed and she voiced understanding. This was also impressed upon her who helps take care of her with her medications. We did change her home basal insulin from 15 units twice daily to 30 units at at bedtime to decrease the amount of time her daughter would have to spend doing her injections that she does help out with her subcu injections for her diabetes. A previous referral to palliative medicine has been made by her primary care physician however they were not able to follow-up because they were unable to reach the patient. We have made a new referral and obtained working numbers to us for follow-up after discharge. The patient was discharged home in stable condition on 01/29/2022. Discharge diagnoses: Acute hypoxic respiratory failure secondary to COPD exacerbation Acute urinary tract infection Hypokalemia Leukocytosis Medication noncompliance CKD stage IIIb Hypothyroidism History of stroke Hypertension History of breast cancer Depression DM-2 COPD with ongoing tobacco abuse Physical Exam Const alert, oriented x3 and no apparent distress Constitutional Narrative: Upper middle-aged white female sitting up in bed eating breakfast and watching television, currently on room air. General Appearance: cooperative, comfortable, disheveled and appears older than stated age Orientation / Consciousness: awake, oriented to person, oriented to place and oriented to time Exam Limitations: other limitations Nutritional Appearance: cachectic HEENT normocephalic, head/scalp atraumatic, hearing grossly normal bilaterally and moist oral mucous membranes Eyes PERRL, EOMs intact bilaterally and conjunctivae normal Neck no lymphadenopathy, supple and no JVD Resp normal respiratory effort, no retractions, no use of accessory muscles and clear to auscultation bilaterally Resp Narrative: Diffusely diminished but clear Auscultation: diminished lung sounds; Negative for crackles, rales, rhonchi or wheezes Cardio regular rate, regular rhythm, S1 normal heart sound, S2 normal heart sound, no murmurs, no rub, no gallops, no clicks and no JVD Peripheral Pulses: pulses 2+ throughout GI normal to inspection, nondistended, normoactive bowel sounds, soft to palpation, non-tender and non-distended; Negative for hepatosplenomegaly Extremity normal to inspection and no clubbing, cyanosis or edema Extremity Narrative: Significant mount of dirt and debris underneath fingernails Skin no rashes or lesions noted, no wounds, skin turgor normal and no jaundice Lesions: no lesions Rashes: no rashes Trauma: no lacerations or abrasions Neuro oriented x3, CN's II-XII intact bilaterally, moves all extremities, no focal motor deficits, no sensory deficits noted and deep tendon reflexes 2+ bilaterally Sensorium / Orientation: awake and alert Speech: speech normal Psych mental status grossly normal and affect normal Appearance: appropriate Mood & Affect: flat affect ABG / Lab / Microbiology Data Result Diagrams: 01/29/22 05:20 01/29/22 05:20 Discharge Plan Admission Admit Date/Time: 01/27/22 00:42 Primary Reason for Your Visit: COPD Attending Provider: Cate Jackson Primary Care Provider: Tera Butts Instructions Additional Instructions / Restrictions: Repeat palliative referral at discharge. Discharge Orders/Prescriptions Prescriptions: New lisinopril 10 mg Tablet 30 mg PO DAILY 30 Days Qty: 90 RF: 0 cephalexin 500 mg capsule 500 mg PO BID Qty: 10 RF: 0 prednisone 10 mg tablet See Taper mg PO DAILY Qty: 30 RF: 0 Basaglar KwikPen U-100 Insulin 100 unit/mL (3 mL) insulin pen 30 unit subcut QPM Qty: 15 RF: 0 Continued cyclobenzaprine 5 mg tablet 5 mg PO BID PRN (Reason: muscle spasm) Qty: 30 RF: 0 lidocaine 5 % adhesive patch,medicated 1 patch topical DAILY PRN (Reason: pain) Qty: 30 RF: 1 nicotine 21 mg/24 hr patch 24 hour 21 mg transdermal DAILY RF: 0 acetaminophen 325 mg capsule 325 - 650 mg PO Q6H PRN (Reason: fever or pain) Qty: 90 RF: 0 albuterol sulfate 90 mcg/actuation HFA aerosol inhaler 2 puff INHALATION Q4H PRN (Reason: SOB) Qty: 8.5 RF: 3 amlodipine 10 mg tablet 10 mg PO DAILY Qty: 90 RF: 3 anastrozole 1 mg tablet 1 mg PO DAILY Qty: 90 RF: 0 (DME) FreeStyle Test Strip See Rx Instructions .ROUTE .MEDSUPPLY Qty: 100 RF: 3 carvedilol 12.5 mg tablet 12.5 mg PO Q12H Qty: 180 RF: 1 cholecalciferol (vitamin D3) 50 mcg (2,000 unit) tablet 2,000 unit PO DAILY Qty: 90 RF: 3 calcium carbonate 600 mg calcium (1,500 mg) tablet 600 mg PO BID Qty: 180 RF: 3 citalopram 10 mg tablet 10 mg PO DAILY Qty: 90 RF: 0 clopidogrel [Plavix] 75 mg tablet 75 mg PO DAILY 30 Days Qty: 30 RF: 0 doxazosin 2 mg tablet 2 mg PO DAILY Qty: 90 RF: 0 (DME) lancets [FreeStyle Lancets] 28 gauge misc See Rx Instructions .ROUTE .MEDSUPPLY Qty: 100 RF: 3 (DME) blood-glucose meter [FreeStyle System Kit] Kit See Rx Instructions .ROUTE .MEDSUPPLY Qty: 1 RF: 0 levothyroxine 100 mcg tablet 100 mcg PO DAILY@0600 Qty: 90 RF: 1 metformin 500 mg tablet 500 mg PO BIDCM Qty: 180 RF: 3 (DME) pen needle, diabetic [Unifine Pentips] 29 gauge x 1/2 needle See Rx Instructions .ROUTE .MEDSUPPLY Qty: 100 RF: 0 potassium chloride [Klor-Con M20] 20 mEq tablet,ER particles/crystals 20 meq PO BIDCM Qty: 180 RF: 1 Discontinued lisinopril 20 mg tablet 20 mg PO DAILY Qty: 90 RF: 3 Referrals / Follow Up: Tera Butts MD [Primary Care Provider] - 02/04/22 10:00 am Disposition Disposition (needs filled in before D/C Order can be placed): Home, Self Care Charges/Coding Visit Charges Inpatient E&M: 31307 Disch Hosp
[2022-01-29 11:20] LABS: Bedside Glucose 231 mg/dL (74-106)
--- NOTE | 2022-01-29 11:35 | PHA.DC.MC ---
Pharmacy Service has performed discharge medication reconciliation and counseling for this patient. 1. CEPHALEXIN 500MG PO BID X 5 DAYS 2. INSULIN GLARGINE 30UNITS SC QPM 3. LISINOPRIL 30MG PO DAILY 4. PREDNISONE 40MG PO DAILY X 3 DAYS, THEN 30MG X 3 DAYS, THEN 20MG X 3 DAYS, THEN 10MG X 3 DAYS The patient's discharge medication list was reviewed for discrepancies and discrepancies were resolved. Home Medications cyclobenzaprine 5 mg tablet 5 mg PO BID PRN #30 tab 01/04/22 lidocaine 5 % topical patch 1 patch TOPICAL DAILY PRN #30 ea 01/04/22 acetaminophen 325 mg capsule 325 - 650 mg PO Q6H PRN #90 cap 01/15/22 albuterol sulfate 90 mcg/actuation aerosol inhaler 2 puff INHALATION Q4H PRN #8.5 g 01/15/22 amlodipine 10 mg tablet 10 mg PO DAILY #90 tab 01/15/22 anastrozole 1 mg tablet 1 mg PO DAILY #90 tab 01/15/22 blood sugar diagnostic #100 ea 01/15/22 blood-glucose meter #1 ea 01/15/22 calcium carbonate 600 mg calcium (1,500 mg) tablet 600 mg PO BID #180 tab 01/15/22 carvedilol 12.5 mg tablet 12.5 mg PO Q12H #180 tab 01/15/22 cholecalciferol (vitamin D3) 50 mcg (2,000 unit) tablet 2,000 unit PO DAILY #90 tab 01/15/22 citalopram 10 mg tablet 10 mg PO DAILY #90 tab 01/15/22 clopidogrel 75 mg tablet 75 mg PO DAILY 30 Days #30 tab 01/15/22 doxazosin 2 mg tablet 2 mg PO DAILY #90 tab 01/15/22 lancets 28 gauge #100 ea 01/15/22 levothyroxine 100 mcg tablet 100 mcg PO DAILY@0600 #90 tab 01/15/22 metformin 500 mg tablet 500 mg PO BIDCM #180 tab 01/15/22 pen needle, diabetic 29 gauge x 1/2 #100 ea 01/15/22 potassium chloride 20 mEq tablet,extended release(part/cryst) 20 meq PO BIDCM #180 tab 01/15/22 nicotine 21 mg TRANSDERMAL DAILY 01/27/22 cephalexin 500 mg PO BID #10 cap 01/29/22 insulin glargine [Basaglar KwikPen U-100 Insulin] 30 unit SUBCUT QPM #15 ml 01/29/22 lisinopril 30 mg PO DAILY 30 Days #90 tab 01/29/22 prednisone See Taper PO DAILY #30 tab 01/29/22 The patient was counseled on the following discharge medications and changes in medications for homegoing were reviewed. The Reason for Use, instructions for use, and potential side effects were reviewed for all new medications. The patient's questions regarding all of their medications were answered. The patient was able to verbally demonstrate an understanding of their discharge medications.
--- NOTE | 2022-01-29 13:19 | NURSING ---
Reviewed charting with Daxa Crespo RN
--- NOTE | 2022-01-31 14:20 | CCN.REFER ---
CCN REFERRAL UNABLE TO REACH PATIENT TO SET UP CCN VISITS. VOICEMAIL NOT SET UP ON PHONE NUMBER LISTED. DTR HERRERA MARLEY CONTACTED WHOM ALSO HAS A VM THAT IS NOT SET UP. WILL CONTINUE TO CALL.
== END 2022-01-29 13:15 | disposition home or self-care (01) | DRG 190 ==
LOC: ED 01-27 00:32 → PCU 01-27 00:55
PROVIDERS: Internal Medicine; Nurse Practitioner Family; Admitting Provider Family Medicine; Emergency Provider Emergency Medicine; PCP Internal Medicine; Visit Provider Internal Medicine
DX: J44.1 Chronic obstructive pulmonary disease with (acute) exacerbation (principal); J96.01 Acute respiratory failure with hypoxia; N39.0 Urinary tract infection, site not specified; E11.65 Type 2 diabetes mellitus with hyperglycemia; E11.22 Type 2 diabetes mellitus with diabetic chronic kidney disease; N18.32 Chronic kidney disease, stage 3b; F12.90 Cannabis use, unspecified, uncomplicated; F17.210 Nicotine dependence, cigarettes, uncomplicated; E03.9 Hypothyroidism, unspecified; I12.9 Hypertensive chronic kidney disease with stage 1 through stage 4 chronic kidney disease, or unspecified chronic kidney disease; E87.6 Hypokalemia; F41.9 Anxiety disorder, unspecified; Z79.02 Long term (current) use of antithrombotics/antiplatelets; Z79.82 Long term (current) use of aspirin; F32.A Depression, unspecified; Z91.14 Patient's other noncompliance with medication regimen; Z85.3 Personal history of malignant neoplasm of breast; Z86.73 Personal history of transient ischemic attack (TIA), and cerebral infarction without residual deficits
CPT/HCPCS: 36415; 71045; 80048; 80076; 81001; 82009; 82962; 83735; 85025; 87077; 87086; 87088; 87426; 87633; 93005; 94640; 97802; 99285; 99406; J7030; J7040; A4216

== ENCOUNTER 2022-02-15 07:19 | Emergency (ER) | payer BC, SELFPAY ==
[2022-02-15 07:20] VITALS: BP 177/151; PULSE 85; RESP 18; TEMP 37.1; O2SAT 93; BMI 24.7
--- NOTE | 2022-02-15 07:48 | RAD_ITS ---
STUDY: X-RAY CHEST REASON FOR EXAM: Female, 66 years old. Chest pain TECHNIQUE: Single AP portable view of the chest. COMPARISON: Comparison is made with prior study dated 01/26/2022. FINDINGS: EKG electrodes are seen. The lungs are clear and expanded. There is no demonstrated pleural abnormality. Normal size heart. Normal mediastinum and jason. Normal visualized pulmonary arteries. There is atherosclerotic tortuosity of the aortic arch and descending thoracic aorta. Normal visualized thoracic spine. Normal visualized ribs, clavicles, and shoulders. There is no demonstrated abnormality of the visualized soft tissue structures of the upper abdomen. RAD/Chest 1 View (Portable) IMPRESSION: Normal x-ray examination of the chest. Electronically Signed: Billy Heath MD at 8:48 EDT ,
--- NOTE | 2022-02-15 07:49 | EKG12_ITS ---
Test Reason : PAIN Blood Pressure : / mmHG Vent. Rate : 081 BPM Atrial Rate : 081 BPM P-R Int : 138 ms QRS Dur : 080 ms QT Int : 382 ms P-R-T Axes : 000 -09 250 degrees QTc Int : 443 ms Normal sinus rhythm Septal infarct , age undetermined ST & T wave abnormality, consider inferolateral ischemia Abnormal ECG Confirmed by ANJUM LEO, DARRON ([id number]), makeup editor KENDELL FERNÁNDEZ ([id number]) on 02/18/2022 1:51:37 PM Referred By: JADIEL Confirmed By:DARRON VALERO MD
--- NOTE | 2022-02-15 07:51 | EDS_ITS ---
HPI History of Present Illness Chief Complaint: Other, Pain/Inj Informant: patient Narrative Narrative: Patient is a 66-year-old female with significant medical history including COPD on home oxygen at rest (seems to be intermittently compliant), recent admission for COPD exacerbation, breast cancer with mastectomy 2 years ago, hypothyroid and diabetes mellitus presenting with left-sided chest pain. Patient states she has had sharp left-sided chest pain for the past few weeks. States it was worse today which is what her triggered her to call 911. She feels mildly short of breath. She not sure if this feels like a COPD exacerbation. She denies any swelling of her legs. Patient is a poor historian and also denies any history of DVT or PE however chart review shows that she does have a history of DVT. She does not appear to be on any anticoagulation. She does feel that she is dehydrated. She is tearful and states that she wants her to be here and that she is scared. [facility] Medical History Arthritis Asthma Breast cancer Carpal tunnel syndrome CKD (chronic kidney disease) stage 3, GFR 30-59 ml/min Constipation COPD (chronic obstructive pulmonary disease) CVA (cerebral vascular accident) Diabetes Flu vaccine need Former smoker Hearing problem High blood pressure Hypertension Hypothyroidism Noncompliance Noncompliance w/medication treatment due to intermit use of medication Right hip pain Right knee pain Sleep apnea Thyroid disease Tobacco abuse Type 2 diabetes mellitus Vertigo Vision problems Home Medications cyclobenzaprine 5 mg tablet 5 mg PO BID PRN #30 tab 01/04/22 [Rx Last Taken Unknown] lidocaine 5 % topical patch 1 patch TOPICAL DAILY PRN #30 ea 01/04/22 [Rx Last Taken Unknown] acetaminophen 325 mg capsule 325 - 650 mg PO Q6H PRN #90 cap 01/15/22 [Rx Last Taken Unknown] albuterol sulfate 90 mcg/actuation aerosol inhaler 2 puff INHALATION Q4H PRN #8.5 g 01/15/22 [Rx Last Taken Unknown] amlodipine 10 mg tablet 10 mg PO DAILY #90 tab 01/15/22 [Rx Last Taken Unknown] anastrozole 1 mg tablet 1 mg PO DAILY #90 tab 01/15/22 [Rx Last Taken Unknown] blood sugar diagnostic #100 ea 01/15/22 [Rx Last Taken Unknown] blood-glucose meter #1 ea 01/15/22 [Rx Last Taken Unknown] calcium carbonate 600 mg calcium (1,500 mg) tablet 600 mg PO BID #180 tab 01/15/22 [Rx Last Taken Unknown] carvedilol 12.5 mg tablet 12.5 mg PO Q12H #180 tab 01/15/22 [Rx Last Taken Unknown] cholecalciferol (vitamin D3) 50 mcg (2,000 unit) tablet 2,000 unit PO DAILY #90 tab 01/15/22 [Rx Last Taken Unknown] citalopram 10 mg tablet 10 mg PO DAILY #90 tab 01/15/22 [Rx Last Taken Unknown] clopidogrel 75 mg tablet 75 mg PO DAILY 30 Days #30 tab 01/15/22 [Rx Last Taken Unknown] doxazosin 2 mg tablet 2 mg PO DAILY #90 tab 01/15/22 [Rx Last Taken Unknown] lancets 28 gauge #100 ea 01/15/22 [Rx Last Taken Unknown] levothyroxine 100 mcg tablet 100 mcg PO DAILY@0600 #90 tab 01/15/22 [Rx Last Taken Unknown] metformin 500 mg tablet 500 mg PO BIDCM #180 tab 01/15/22 [Rx Last Taken Unknown] pen needle, diabetic 29 gauge x 1/2 #100 ea 01/15/22 [Rx Last Taken Unknown] potassium chloride 20 mEq tablet,extended release(part/cryst) 20 meq PO BIDCM #180 tab 01/15/22 [Rx Last Taken Unknown] nicotine 21 mg TRANSDERMAL DAILY 01/27/22 [History Last Taken Unknown] cephalexin 500 mg PO BID #10 cap 01/29/22 [Rx Last Taken Unknown] lisinopril 30 mg PO DAILY 30 Days #90 tab 01/29/22 [Rx Last Taken Unknown] prednisone See Taper PO DAILY #30 tab 01/29/22 [Rx Last Taken Unknown] fluticasone furoate 200 mcg-vilanterol 25 mcg/dose inhalation powder 1 inh INHALATION Q24H #60 ea 02/05/22 [Rx Last Taken Unknown] insulin glargine 100 unit/mL (3 mL) subcutaneous pen 20 unit SUBCUT QPM 90 Days #18 ml 02/05/22 [Rx Last Taken Unknown] fluticasone furoate-vilanterol [Breo Ellipta] INHALATION 02/15/22 [History Last Taken Unknown] nystatin 1 applic TOPICAL BID #30 g 02/15/22 [Rx Last Taken Unknown] Allergy/AdvReac Type Severity Reaction Status Date / Time aspirin Allergy Unknown Nausea Verified 02/05/22 11:10 albuterol AdvReac I GET VERY Verified 02/05/22 11:10 SHAKEY/HYPERVENTILATING Penicillins AdvReac Nausea/Vom/ Verified 02/05/22 11:10 Diarrhea Family History Father Cancer bone cancer Brother Heart disease Surgical History H/O mastectomy History of appendectomy History of section Social History household members: spouse Smoking Status: Current every day smoker tobacco type: cigarettes Tobacco: How many years used: 50 alcohol intake: never substance use type: marijuana and other details: smokes 4 joints a day ROS ROS ED Constitutional Constitutional ED: Denies chills or fever(s) Eyes Eyes: Denies change in vision ENT ENT ED: Reports other Details: Dry mouth ; Denies rhinorrhea or sore throat Cardiovascular Cardiovascular: Reports chest pain; Denies palpitations Respiratory/Chest Respiratory/Chest: Reports dyspnea; Denies cough or sputum Gastrointestinal Gastrointestinal: Denies abdominal pain, nausea or vomiting Genitourinary Genitourinary ED: Denies dysuria Musculoskeletal Musculoskeletal: Denies arthralgias or myalgias Integumentary Denies rash Neurologic Neurologic: Denies headache(s) or weakness Psychiatric Psychiatric: Reports anxiety; Denies depression EXAM Physical Exam Const Vital Signs: 02/15/22 07:20 02/15/22 08:09 02/15/22 09:25 Temperature 98.8 F Temperature Source Oral Pulse Rate 85 81 78 Respiratory Rate 18 18 27 H Blood Pressure 177/151 H 205/122 H Blood Pressure Mean 159 149 Pulse Ox 93 97 95 Oxygen Delivery Method Room Air Nasal Cannula Nasal Cannula Oxygen Flow Rate (L/min) 2 2 02/15/22 10:18 02/15/22 10:47 02/15/22 12:30 Temperature Temperature Source Pulse Rate 75 76 81 Respiratory Rate 17 14 Blood Pressure 182/109 H 190/109 H 169/98 H Blood Pressure Mean 133 136 Pulse Ox 96 98 Oxygen Delivery Method Nasal Cannula Oxygen Flow Rate (L/min) 2 Positive well developed and unkempt General Appearance ED: unkempt and well developed HEENT Reports dry mucous membranes Negative for trauma Mouth ED: Yes dry mucous membranes Mouth: dry mucous membranes Eyes PERRL and EOMs intact bilaterally Neck supple and no JVD Chest Wall inspection of chest normal Chest Narrative: Status post left-sided mastectomy Resp normal respiratory effort Auscultation: diminished lung sounds; Negative for wheezes Cardio regular rate, regular rhythm and no murmurs GI normal to inspection, nondistended, normoactive bowel sounds, non-tender and non-distended Palpation: soft Back/Spine no CVA tenderness Extremity normal to inspection General Extremety ED: Negative for edema or tenderness General Extremity: Negative for edema Neuro oriented x3 Sensorium / Orientation: alert Motor Exam: general weakness Psych mental status grossly normal Appearance: unkempt Mood & Affect: tearful Skin no rashes or lesions noted and no wounds MDM MDM MDM Narrative Medical decision making narrative: Patient evaluated for 3 weeks of left-sided chest pain. Is worse today. Patient does have some also shortness of breath but does have COPD and is supposed to be on chronic home oxygen. She recently had a hospitalization for COPD exacerbation and was discharged about 2 weeks ago. Patient has a leukocytosis today of 13.1 but is actually improved from her recent hospitalization. Creatinine is at her baseline at 1.27. She is mildly hyponatremic at 133. Given her chest pain, shortness of breath and recent hospitalization D-dimer is ordered which is elevated at 2.27. CTA of the chest ordered which does not show any acute process including infiltrates or PE. Delta high-sensitivity troponin is 25 and 25. I do not think patient requires admission to the hospital. On physical exam she does have a contact of otitis to perineal and buttocks area as well as some satellite lesions concerning for yeast infection. Family states that she just lays in bed all day and does wear an adult diaper. Patient was prescribed nystatin. Discussed how patient has been referred to palliative care and family and patient are now more interested in it. Social work consult obtained for the emergency room and patient is given outpatient resources including palliative care and home health. Lab Data Attestation: I reviewed the patient's lab results. Labs: Laboratory Results - last 24 hr 02/15/22 02/15/2202/15/22 08:07 08:07 08:07 WBC 13.1 H RBC 4.93 Hgb 13.8 Hct 42.2 MCV 85.6 MCH 28.0 MCHC 32.7 RDW Std Deviation 44.1 H RDW Coeff of Chad 14.3 Plt Count MPV 11.2 Immature Gran % (Auto) 0.700 Neut % (Auto) 76.2 H Lymph % (Auto) 16.8 L [place] % (Auto) 4.2 Eos % (Auto) 1.3 Baso % (Auto) 0.8 Absolute Neuts (auto) 10.0 H Absolute Lymphs (auto) 2.19 Nucleated RBC % 0 Platelet Estimate ADEQUATE PT Cancelled INR Cancelled D-Dimer Quant (PE/DVT) Cancelled Sodium 133 L Potassium 3.8 Chloride 98 Carbon Dioxide 32.0 Anion Gap 3 L BUN 19 H Creatinine 1.27 H Estim Creat Clear Calc 30.88 Est GFR (MDRD) Af Amer 54 L Est GFR (MDRD) Non-Af 45 L BUN/Creatinine Ratio 15.0 Glucose 364 H Calcium 9.0 Troponin I High Sens 25 02/15/22 02/15/22 09:00 11:11 WBC RBC Hgb Hct MCV MCH MCHC RDW Std Deviation RDW Coeff of Chad Plt Count MPV Immature Gran % (Auto) Neut % (Auto) Lymph % (Auto) [place] % (Auto) Eos % (Auto) Baso % (Auto) Absolute Neuts (auto) Absolute Lymphs (auto) Nucleated RBC % Platelet Estimate PT 13.1 INR 1.0 D-Dimer Quant (PE/DVT) 2.27 H* Sodium Potassium Chloride Carbon Dioxide Anion Gap BUN Creatinine Estim Creat Clear Calc Est GFR (MDRD) Af Amer Est GFR (MDRD) Non-Af BUN/Creatinine Ratio Glucose Calcium Troponin I High Sens 25 Radiography Chest X-Ray - ED: 1 View, Read by ED Physician and No Acute Disease Diagnostic Testing: Clinical Impression(s) from Imaging Studies Chest X-Ray 02/15/22 07:48 IMPRESSION: Normal x-ray examination of the chest. Electronically Signed: Billy Heath MD at 8:48 EDT , Chest CTA 02/15/22 09:54 IMPRESSION: Normal CTA chest examination, without a demonstrated pulmonary embolism or arterial dissection. Electronically Signed: Billy Heath MD at 10:44 EDT , Rhythm Strip Rhythm Strip: Sinus Rhythm Rate: 81 Ectopy: None EKG Initial EKG: Attestation: I personally reviewed and interpreted this EKG as follows: Interpretation: Sinus Rhythm Comments: Normal sinus rhythm at a rate of 61 Normal axis Normal intervals T wave changes with inversions in 1, 2, V3 through V6 No change critter prior EKG on 01/26/2022 Discharge Plan Triage Chief Complaint: Other, Pain/Inj ED Provider: Yue Mathews Dx/Rx/DC Orders Clinical Impression: Chest pain, Contact dermatitis Instructions: ED Contact Dermatitis, ED Chest Pain, Uncertain Cause Prescriptions: New nystatin 100,000 unit/gram ointment 1 applic topical BID Qty: 30 RF: 0 No Action cyclobenzaprine 5 mg tablet 5 mg PO BID PRN (Reason: muscle spasm) Qty: 30 RF: 0 lidocaine 5 % adhesive patch,medicated 1 patch topical DAILY PRN (Reason: pain) Qty: 30 RF: 1 Breo Ellipta 200-25 mcg/dose blister with device 1 inh inhalation Q24H Qty: 60 RF: 3 Basaglar KwikPen U-100 Insulin 100 unit/mL (3 mL) insulin pen 20 unit subcut QPM 90 Days Qty: 18 RF: 3 nicotine 21 mg/24 hr patch 24 hour 21 mg transdermal DAILY RF: 0 lisinopril 10 mg Tablet 30 mg PO DAILY 30 Days Qty: 90 RF: 0 cephalexin 500 mg capsule 500 mg PO BID Qty: 10 RF: 0 prednisone 10 mg tablet See Taper mg PO DAILY Qty: 30 RF: 0 Breo Ellipta 200-25 mcg/dose blister with device INHALATION RF: 0 acetaminophen 325 mg capsule 325 - 650 mg PO Q6H PRN (Reason: fever or pain) Qty: 90 RF: 0 albuterol sulfate 90 mcg/actuation HFA aerosol inhaler 2 puff INHALATION Q4H PRN (Reason: SOB) Qty: 8.5 RF: 3 amlodipine 10 mg tablet 10 mg PO DAILY Qty: 90 RF: 3 anastrozole 1 mg tablet 1 mg PO DAILY Qty: 90 RF: 0 (DME) FreeStyle Test Strip See Rx Instructions .ROUTE .MEDSUPPLY Qty: 100 RF: 3 carvedilol 12.5 mg tablet 12.5 mg PO Q12H Qty: 180 RF: 1 cholecalciferol (vitamin D3) 50 mcg (2,000 unit) tablet 2,000 unit PO DAILY Qty: 90 RF: 3 calcium carbonate 600 mg calcium (1,500 mg) tablet 600 mg PO BID Qty: 180 RF: 3 citalopram 10 mg tablet 10 mg PO DAILY Qty: 90 RF: 0 clopidogrel [Plavix] 75 mg tablet 75 mg PO DAILY 30 Days Qty: 30 RF: 0 doxazosin 2 mg tablet 2 mg PO DAILY Qty: 90 RF: 0 (DME) lancets [FreeStyle Lancets] 28 gauge misc See Rx Instructions .ROUTE .MEDSUPPLY Qty: 100 RF: 3 (DME) blood-glucose meter [FreeStyle System Kit] Kit See Rx Instructions .ROUTE .MEDSUPPLY Qty: 1 RF: 0 levothyroxine 100 mcg tablet 100 mcg PO DAILY@0600 Qty: 90 RF: 1 metformin 500 mg tablet 500 mg PO BIDCM Qty: 180 RF: 3 (DME) pen needle, diabetic [Unifine Pentips] 29 gauge x 1/2 needle See Rx Instructions .ROUTE .MEDSUPPLY Qty: 100 RF: 0 potassium chloride [Klor-Con M20] 20 mEq tablet,ER particles/crystals 20 meq PO BIDCM Qty: 180 RF: 1 Other Ambulatory Orders: Home Health (Routine) Location: None Selected Ordered By: Dr. Yue Mathews Primary Care Provider: Tera Butts Referrals: Tera Butts MD [Primary Care Provider] - Activity Restrictions/Additional Instructions: Apply Desitin after every urination/bowel movements to help protect the skin. Also apply nystatin ointment prescribed today to help with the rash in her buttocks/vaginal area. It is very important that she follows/establishes with palliative care for outpatient resources and home help. Disposition Disposition: Home, Self Care Discharge Date/Time: 02/15/22 13:05
[2022-02-15] MEDS: Ipratropium 0.5 MG/2.5 ML SOLUTION INHALATION (08:08)
[2022-02-15 08:09] VITALS: PULSE 81; RESP 18; O2SAT 97
[2022-02-15] MEDS: 0.9% Normal Saline 1,000 ML 1000 ML IV (08:13)
[2022-02-15 08:16] LABS: Absolute Lymphocyte Count 2.19 X10^3/uL (0.83-4.51); Basophil# 0.11 X10^3/uL; Basophil% 0.8 % (0-1); Eosinophil# 0.17 X10^3/uL; Eosinophils% 1.3 % (0-5); Hematocrit 42.2 % (37-47); Hemoglobin 13.8 g/dL (12.0-15.0); Lymphocyte # 2.19 X10^3/ul (0.83-4.51); Lymphocyte % 16.8 % (19-41); Mean Corp Hgb Conc 32.7 g/dL (32-36); Mean Corpuscular Volume 85.6 fL (81-99); Mean Platelet Vol. 11.2 fl (6.2-12.0); Monocyte# 0.55 X10^3/uL; Monocyte% 4.2 % (0-10); NRBC Flagged by Analyzer 0 % (0-5); Neutrophil # 9.95 X10^3/uL (2.7-7.7); Neutrophil % 76.2 % (47-70); POSITIVE COUNT YES; RBC Distribution Width CV 14.3 % (11.6-14.6); RBC Distribution Width SD 44.1 fl (35.1-43.9); Red Blood Count 4.93 M/mm3 (4.2-5.4); White Blood Count 13.1 K/mm3 (4.4-11.0)
[2022-02-15 08:32] LABS: BUN 19 mg/dL (7-18); Chloride 98 mmol/L (98-107); Creatinine, Serum 1.27 mg/dL (0.55-1.02); EST Glomerular Filtration Rate 45 mL/min (>60); Est Glom Filt Rate - Afr Amer 54 mL/min (>60); Estimated Creatinine Clearance 30.88 ml/min; Glucose 364 mg/dL (74-106); Potassium 3.8 mmol/L (3.5-5.1); Sodium Level 133 mmol/L (136-145); Troponin-I HS 25 pg/mL (3.0-54.0)
[2022-02-15 08:33] LABS: Anion Gap 3 (5-15)
[2022-02-15 08:49] LABS: Differential Indicated SCAN CRITERIA MET; Platelet Estimate ADEQUATE (ADEQ)
[2022-02-15 09:25] VITALS: BP 205/122; PULSE 78; RESP 27; O2SAT 95
[2022-02-15 09:39] LABS: Prothrombin Time (Protime)PT. 13.1 SECONDS (11.7-14.9)
[2022-02-15 09:50] LABS: D-Dimer Quantitative (DVT/PE) 2.27 FEU/ug/m (0.27-0.49)
--- NOTE | 2022-02-15 09:54 | CT_ITS ---
STUDY: CTA CHEST REASON FOR EXAM: Female, 66 years old. Chest pain, elevated dimer RADIATION DOSAGE (If Supplied By Facility): CTDIvol = ( 6.23 ) mGy, DLP = ( 200.48 ) mGycm TECHNIQUE: The examination was performed with the intravenous administration of IV 100mL Isovue-370. Post-processing of the angiographic images was performed, with multiplanar reformation and 3D reconstruction. Individualized dose optimization techniques were used for this CT. COMPARISON: None. FINDINGS: Normal enhancement of the main pulmonary artery and right and left pulmonary arteries. Normal enhancement of the bilateral peripheral pulmonary arteries. There is no demonstrated pulmonary embolism. Normal thoracic aorta and visualized great vessels. There is no demonstrated aortic dissection. There are mild calcifications of the coronary arteries. Normal mediastinum. Normal hilar regions. Normal visualized trachea and bronchi. The lungs are well expanded. Normal pulmonary parenchyma. Normal pleura. Normal chest wall structures. Normal osseous structures. Normal visualized upper abdomen. CT/CTA Chest W/WO Contrast IMPRESSION: Normal CTA chest examination, without a demonstrated pulmonary embolism or arterial dissection. Electronically Signed: Billy Heath MD at 10:44 EDT ,
[2022-02-15 10:18] VITALS: BP 182/109; PULSE 75
--- NOTE | 2022-02-15 10:19 | ED.RN ---
PT STATES THAT SHE HAS NOT TAKEN ANY OF HEAR MEDS.
[2022-02-15] MEDS: Carvedilol 12.5 MG Tablet PO (10:33)
[2022-02-15] MEDS: amLODIPine 10 MG Tablet PO (10:33)
[2022-02-15 10:47] VITALS: BP 190/109; PULSE 76; RESP 17; O2SAT 96
--- NOTE | 2022-02-15 11:30 | CM.ED ---
Social Work Note SW updated that physician is recommending HHC and Palliative Care. Palliative Care Order received. LUIS ARMANDO and Belinda WHITTEN in to speak with pt, pt's daughter Lalitha Gorman ([phone]) and other daughter Brigitte Doyle ([phone]). SW spoke with pt and pt's daughters regarding community resources including HHC, [facility], [facility] Care and [facility]. Pt and pt's daughters agreeable to referral being sent to [facility], [facility] for Palliative referral, and [facility] referral. Pt's daughters also agreeable to taking contact information for [facility]. Pt agreeable to referrals as well. SW to make referrals to [facility], [facility], and [facility]. SW provided contact information for [facility] to pt's daughters. SW to continue to follow. Pham Bae TUMBLER DRIER OPERATOR, ANTIQUE COLLECTOR
[2022-02-15 11:44] LABS: Troponin-I HS 25 pg/mL (3.0-54.0)
[2022-02-15 12:30] VITALS: BP 169/98; PULSE 81; RESP 14; O2SAT 98
--- NOTE | 2022-02-15 14:47 | CM.ED ---
Social Work Note LUIS ARMANDO called Pat at [facility] and provided referral for RN, PT/OT, and SW. Stewart to review referral. LUIS ARMANDO faxed referral to [facility]. Pham Bae HIV PREVENTION SPECIALIST, SLEEPING CAR PORTER
--- NOTE | 2022-02-15 14:53 | CM.ED ---
Social Work Note LUIS ARMANDO placed a call to Pat at [facility] and provided referral for RN, PT/OT, LUIS ARMANDO. Pat to review referral. LUIS ARMANDO faxed referral to [facility]. Pham Bae BURR PICKER, ORNAMENTER
--- NOTE | 2022-02-15 16:30 | CASEMGMT ---
Addendum entered by Pham Bae 02/15/22 19:27: A referral for [facility] was also faxed for pt. Addendum entered by Pham Bae 02/15/22 19:27: LUIS ARMANDO faxed Palliative Care Order to [facility]. LUIS ARMANDO emailed Palliative Care regarding referral. Original Note: Social Work Note SW received call from Pat with [facility] stating she has got in contact with pt's family and will have a start of care tomorrow for pt. Pat request HHC order be faxed. LUIS ARMANDO faxed HHC order to Pat at [facility]. Pham Bae ARTILLERY SPECIALIST, ADVISORY INTERN
== END 2022-02-15 13:05 | disposition home or self-care (01) ==
PROVIDERS: Emergency Provider Emergency Medicine; PCP Internal Medicine; Visit Provider Emergency Medicine
DX: R07.9 Chest pain, unspecified (principal); J44.9 Chronic obstructive pulmonary disease, unspecified; E11.22 Type 2 diabetes mellitus with diabetic chronic kidney disease; N18.30 Chronic kidney disease, stage 3 unspecified; E86.0 Dehydration; E87.1 Hypo-osmolality and hyponatremia; F17.200 Nicotine dependence, unspecified, uncomplicated; L25.9 Unspecified contact dermatitis, unspecified cause; F12.90 Cannabis use, unspecified, uncomplicated; I12.9 Hypertensive chronic kidney disease with stage 1 through stage 4 chronic kidney disease, or unspecified chronic kidney disease; H66.90 Otitis media, unspecified, unspecified ear; Z99.81 Dependence on supplemental oxygen; Z85.3 Personal history of malignant neoplasm of breast
CPT/HCPCS: 71045; 71275; 80048; 84484; 85025; 85379; 85610; 93005; 94640; 96360; 99285; Q9967

== ENCOUNTER 2022-02-23 13:07 | Emergency (ER) | payer BC, SELFPAY ==
[2022-02-23 13:09] VITALS: BP 146/85; PULSE 102; RESP 16; TEMP 37.1; O2SAT 94; BMI 26.9
[2022-02-23 13:26] LABS: Absolute Lymphocyte Count 4.58 X10^3/uL (0.83-4.51); Absolute Neutrophil Count 12.4 X10^3/uL (2.0-7.7); Basophil# 0.19 X10^3/uL; Eosinophil# 0.27 X10^3/uL; Eosinophils% 1.4 % (0-5); Hematocrit 40.6 % (37-47); Hemoglobin 13.3 g/dL (12.0-15.0); Lymphocyte # 4.58 X10^3/ul (0.83-4.51); Lymphocyte % 23.8 % (19-41); Mean Corp Hgb Conc 32.8 g/dL (32-36); Mean Corpuscular Hgb 27.8 pg (27.0-32.0); Mean Corpuscular Volume 84.9 fL (81-99); Monocyte# 0.86 X10^3/uL; Monocyte% 4.5 % (0-10); NRBC Flagged by Analyzer 0 % (0-5); Neutrophil # 12.44 X10^3/uL (2.7-7.7); Neutrophil % 64.8 % (47-70); Platelet Count 460 K/mm3 (150-450); RBC Distribution Width CV 14.5 % (11.6-14.6); RBC Distribution Width SD 44.4 fl (35.1-43.9); Red Blood Count 4.78 M/mm3 (4.2-5.4); White Blood Count 19.2 K/mm3 (4.4-11.0)
--- NOTE | 2022-02-23 13:41 | EKG12_ITS ---
Test Reason : GENERAL ILLNESS Blood Pressure : / mmHG Vent. Rate : 090 BPM Atrial Rate : 090 BPM P-R Int : 160 ms QRS Dur : 080 ms QT Int : 338 ms P-R-T Axes : 073 014 166 degrees QTc Int : 413 ms Normal sinus rhythm Septal infarct , age undetermined T wave abnormality, consider lateral ischemia Abnormal ECG Confirmed by ANJUM LEO, DARRON ([id number]), brands editor KENDELL FERNÁNDEZ ([id number]) on 02/25/2022 1:04:44 PM Referred By: MARY Confirmed By:DARRON VALERO MD
[2022-02-23 13:43] LABS: Anion Gap 7 (5-15); BUN 28 mg/dL (7-18); BUN/Creat Ratio 20.9 RATIO (10-20); Calcium,Total 9.2 mg/dL (8.5-10.1); Chloride 104 mmol/L (98-107); Creatinine, Serum 1.34 mg/dL (0.55-1.02); EST Glomerular Filtration Rate 42 mL/min (>60); Est Glom Filt Rate - Afr Amer 51 mL/min (>60); Estimated Creatinine Clearance 29.26 ml/min; Glucose 97 mg/dL (74-106); Potassium 4.2 mmol/L (3.5-5.1); Sodium Level 136 mmol/L (136-145); Troponin-I HS 20 pg/mL (3.0-54.0)
[2022-02-23 14:00] LABS: Bacteria 0 SEEN /hpf (None Seen); Mucous, Urine 0 SEEN /hpf (<or=2+); Red Blood Cells-Urine 0 SEEN /hpf (0-5); Squamous Epithelial Cells - UA 0 SEEN /hpf (5-10)
--- NOTE | 2022-02-23 14:01 | ED.RN ---
Patient needed straight catheter placement for collection of urine. Patient had strong odor of urine and she had a reddened perianal and perineum extending to bilateral upper thighs and buttocks. She had white yeast like substance that had was cleaned. No opens sores noted at this time. At the time of cleaning this patient and changing bedding, it was noted the depends she had in place was completely saturated and dirty. She had saturated clothing including saturated and soiled hospital socks.
[2022-02-23 14:02] LABS: Color, Urine Yellow (Yellow); Glucose, Dipstick Normal (Normal); Ketone-Dipstick Negative (Negative); Leukocyte Esterase-Dipstick 500 /ul (Negative); Nitrite-Dipstick Positive (Negative); Occult Blood-Urine 150 /ul (Negative); Protein-Dipstick 100 mg/dl (Negative); Urine Bilirubin Dipstick Negative (Negative); Urine Clarity Cloudy (Clear); Urine Urobilinogen Normal (Normal)
[2022-02-23 14:10] LABS: White Blood Cells >100 SEEN /hpf (0-5)
[2022-02-23] MEDS: levoFLOXacin IV 750 MG/150 ML BAG 100 MG IV (14:46)
--- NOTE | 2022-02-23 15:17 | EX.ED.DYSGE1 ---
HPI History of Present Illness Chief Complaint: Fall Informant: patient and spouse/S.O. Onset/Context/Timing Onset: Today Current Severity: Mild Worsened by: Chronic RLE weakness Narrative Prior similar symptoms: Yes PFSH PFSH Medical History Arthritis Asthma Breast cancer Carpal tunnel syndrome CKD (chronic kidney disease) stage 3, GFR 30-59 ml/min Constipation COPD (chronic obstructive pulmonary disease) CVA (cerebral vascular accident) Diabetes Flu vaccine need Former smoker Hearing problem High blood pressure Hypertension Hypothyroidism Noncompliance Noncompliance w/medication treatment due to intermit use of medication Right hip pain Right knee pain Sleep apnea Thyroid disease Tobacco abuse Type 2 diabetes mellitus Vertigo Vision problems Home Medications cyclobenzaprine 5 mg tablet 5 mg PO BID PRN #30 tab 01/04/22 [Rx Last Taken Unknown] lidocaine 5 % topical patch 1 patch TOPICAL DAILY PRN #30 ea 01/04/22 [Rx Last Taken Unknown] acetaminophen 325 mg capsule 325 - 650 mg PO Q6H PRN #90 cap 01/15/22 [Rx Last Taken Unknown] albuterol sulfate 90 mcg/actuation aerosol inhaler 2 puff INHALATION Q4H PRN #8.5 g 01/15/22 [Rx Last Taken Unknown] amlodipine 10 mg tablet 10 mg PO DAILY #90 tab 01/15/22 [Rx Last Taken Unknown] anastrozole 1 mg tablet 1 mg PO DAILY #90 tab 01/15/22 [Rx Last Taken Unknown] blood sugar diagnostic #100 ea 01/15/22 [Rx Last Taken Unknown] blood-glucose meter #1 ea 01/15/22 [Rx Last Taken Unknown] calcium carbonate 600 mg calcium (1,500 mg) tablet 600 mg PO BID #180 tab 01/15/22 [Rx Last Taken Unknown] carvedilol 12.5 mg tablet 12.5 mg PO Q12H #180 tab 01/15/22 [Rx Last Taken Unknown] cholecalciferol (vitamin D3) 50 mcg (2,000 unit) tablet 2,000 unit PO DAILY #90 tab 01/15/22 [Rx Last Taken Unknown] citalopram 10 mg tablet 10 mg PO DAILY #90 tab 01/15/22 [Rx Last Taken Unknown] clopidogrel 75 mg tablet 75 mg PO DAILY 30 Days #30 tab 04/12/22 [Rx Last Taken Unknown] doxazosin 2 mg tablet 2 mg PO DAILY #90 tab 01/15/22 [Rx Last Taken Unknown] lancets 28 gauge #100 ea 01/15/22 [Rx Last Taken Unknown] levothyroxine 100 mcg tablet 100 mcg PO DAILY@0600 #90 tab 01/15/22 [Rx Last Taken Unknown] metformin 500 mg tablet 500 mg PO BIDCM #180 tab 01/15/22 [Rx Last Taken Unknown] pen needle, diabetic 29 gauge x 1/2 #100 ea 01/15/22 [Rx Last Taken Unknown] potassium chloride 20 mEq tablet,extended release(part/cryst) 20 meq PO BIDCM #180 tab 01/15/22 [Rx Last Taken Unknown] nicotine 21 mg TRANSDERMAL DAILY 01/27/22 [History Last Taken Unknown] cephalexin 500 mg PO BID #10 cap 01/29/22 [Rx Last Taken Unknown] lisinopril 30 mg PO DAILY 30 Days #90 tab 01/29/22 [Rx Last Taken Unknown] prednisone See Taper PO DAILY #30 tab 01/29/22 [Rx Last Taken Unknown] fluticasone furoate 200 mcg-vilanterol 25 mcg/dose inhalation powder 1 inh INHALATION Q24H #60 ea 02/05/22 [Rx Last Taken Unknown] fluticasone furoate-vilanterol [Breo Ellipta] INHALATION 02/15/22 [History Last Taken Unknown] nystatin 1 applic TOPICAL BID #30 g 02/15/22 [Rx Last Taken Unknown] flash glucose sensor #1 ea 02/21/22 [Rx Last Taken Unknown] insulin glargine 100 unit/mL (3 mL) subcutaneous pen 24 unit SUBCUT QPM 90 Days #21.6 ml 02/21/22 [Rx Last Taken Unknown] levofloxacin 750 mg PO DAILY #4 tab 02/23/22 [Rx Last Taken Unknown] Allergy/AdvReac Type Severity Reaction Status Date / Time aspirin Allergy Unknown Nausea Verified 02/05/22 11:10 albuterol AdvReac I GET VERY Verified 02/05/22 11:10 SHAKEY/HYPERVENTILATING Penicillins AdvReac Nausea/Vom/ Verified 02/05/22 11:10 Diarrhea Family History Father Cancer bone cancer Brother Heart disease Surgical History H/O mastectomy History of appendectomy History of section Social History household members: spouse Smoking Status: Current every day smoker tobacco type: cigarettes Tobacco: How many years used: 50 alcohol intake: never substance use type: marijuana and other details: smokes 4 joints a day ROS ROS ED Constitutional Constitutional ED: Denies chills or fever(s) Eyes Eyes: Denies change in vision ENT ENT ED: Denies ear pain Cardiovascular Cardiovascular: Denies chest pain Respiratory/Chest Respiratory/Chest: Denies dyspnea Gastrointestinal Gastrointestinal: Denies abdominal pain Genitourinary Genitourinary ED: Denies dysuria Musculoskeletal Musculoskeletal: Denies arthralgias, myalgias or neck pain Integumentary Denies rash Neurologic Neurologic: Reports weakness; Denies headache(s) or paresthesias Psychiatric Psychiatric: Denies depression Endocrine Endocrinology: Denies polyuria Allergic/Immunologic Allergic/Immunologic ED: Denies urticaria EXAM Physical Exam Const Vital Signs: 02/23/22 13:09 Temperature 98.8 F Temperature Source Temporal Pulse Rate 102 H Respiratory Rate 16 Blood Pressure 146/85 H Blood Pressure Mean 105 Pulse Ox 94 Oxygen Delivery Method Room Air Positive well nourished and well developed General Appearance ED: well developed HEENT Negative for trauma or tenderness Eyes PERRL and EOMs intact bilaterally Neck no lymphadenopathy and supple General: Negative for tenderness Resp normal respiratory effort and clear to auscultation bilaterally Cardio regular rate and regular rhythm GI normal to inspection, nondistended, normoactive bowel sounds Extremity normal to inspection General Extremety ED: Negative for edema or tenderness General Extremity: Negative for edema Neuro oriented x3 Sensorium / Orientation: alert Psych mental status grossly normal Skin Skin Narrative: Sacral decubitus ulcers and excoriations MDM MDM MDM Narrative Medical decision making narrative: EKG showed sinus rhythm at a rate of 90. No sign of acute ischemia or infarction pattern. Nonspecific T wave changes. Patient presents for a fall. This was witnessed and she did not sustain any injuries according to her and her who witnessed the fall. She has no pain. She has chronic right leg weakness. This is not new but may be slightly worse than normal. No other weakness. No numbness. No facial droop, speech changes, vision changes. There is nothing to suggest that this is a stroke, seems like a chronic issue. I advised that I cannot fix her chronic weakness today but we can check for other factors that may be exacerbating her chronic disease. Check some basic blood work and a urinalysis. She has a UTI and a culture was sent. White count was 19. Nursing notified me that she had extensive decubitus ulcers and skin breakdown. She is not having regular diaper changes. said that she does not notify him when she needs to be changed and so sometimes she does not get changed quickly. She does not want assisted placement or admission to the hospital. Nursing pepper did contact [facility] but the patient would like to be discharged home. She was covered with antibiotics. Cultures are pending. Patient will sign out AGAINST MEDICAL ADVICE. Impression #1 fall Impression #2 chronic leg weakness Impression #3 UTI Impression #4 sepsis Disposition is patient leaving AGAINST MEDICAL ADVICE Lab Data Attestation: I reviewed the patient's lab results. Labs: Laboratory Results - last 24 hr 02/23/22 02/23/22 02/23/22 13:15 13:15 13:50 WBC 19.2 H RBC 4.78 Hgb 13.3 Hct 40.6 MCV 84.9 MCH 27.8 MCHC 32.8 RDW Std Deviation 44.4 H RDW Coeff of Chad 14.5 Plt Count 460 H MPV 10.0 Immature Gran % (Auto) 4.500 H Neut % (Auto) 64.8 Lymph % (Auto) 23.8 Angelina % (Auto) 4.5 Eos % (Auto) 1.4 Baso % (Auto) 1.0 Absolute Neuts (auto) 12.4 H Absolute Lymphs (auto) 4.58 H Nucleated RBC % 0 Sodium 136 Potassium 4.2 Chloride 104 Carbon Dioxide 25.0 Anion Gap 7 BUN 28 H Creatinine 1.34 H Estim Creat Clear Calc 29.26 Est GFR (MDRD) Af Amer 51 L Est GFR (MDRD) Non-Af 42 L BUN/Creatinine Ratio 20.9 H Glucose 97 Calcium 9.2 Troponin I High Sens 20 Urine Color Yellow Urine Clarity Cloudy Urine pH 6.0 Ur Specific [place] 1.020 Urine Protein 100 H Urine Glucose (UA) Normal Urine Ketones Negative Urine Occult Blood 150 H Urine Nitrite Positive H Urine Bilirubin Negative Urine Urobilinogen Normal Ur Leukocyte Esterase 500 H Urine RBC 0 SEEN Urine WBC >100 SEEN Ur Squamous Epith Cells 0 SEEN Urine Bacteria 0 SEEN Urine Mucus 0 SEEN Discharge Plan Triage Chief Complaint: Fall ED Provider: Loc Escobar Dx/Rx/DC Orders Instructions: Understanding Urinary Tract ... Prescriptions: New levofloxacin 750 mg tablet 750 mg PO DAILY Qty: 4 RF: 0 No Action cyclobenzaprine 5 mg tablet 5 mg PO BID PRN (Reason: muscle spasm) Qty: 30 RF: 0 lidocaine 5 % adhesive patch,medicated 1 patch topical DAILY PRN (Reason: pain) Qty: 30 RF: 1 Breo Ellipta 200-25 mcg/dose blister with device 1 inh inhalation Q24H Qty: 60 RF: 3 nicotine 21 mg/24 hr patch 24 hour 21 mg transdermal DAILY RF: 0 lisinopril 10 mg Tablet 30 mg PO DAILY 30 Days Qty: 90 RF: 0 cephalexin 500 mg capsule 500 mg PO BID Qty: 10 RF: 0 prednisone 10 mg tablet See Taper mg PO DAILY Qty: 30 RF: 0 Breo Ellipta 200-25 mcg/dose blister with device INHALATION RF: 0 nystatin 100,000 unit/gram ointment 1 applic topical BID Qty: 30 RF: 0 acetaminophen 325 mg capsule 325 - 650 mg PO Q6H PRN (Reason: fever or pain) Qty: 90 RF: 0 albuterol sulfate 90 mcg/actuation HFA aerosol inhaler 2 puff INHALATION Q4H PRN (Reason: SOB) Qty: 8.5 RF: 3 amlodipine 10 mg tablet 10 mg PO DAILY Qty: 90 RF: 3 anastrozole 1 mg tablet 1 mg PO DAILY Qty: 90 RF: 0 (DME) FreeStyle Test Strip See Rx Instructions .ROUTE .MEDSUPPLY Qty: 100 RF: 3 carvedilol 12.5 mg tablet 12.5 mg PO Q12H Qty: 180 RF: 1 cholecalciferol (vitamin D3) 50 mcg (2,000 unit) tablet 2,000 unit PO DAILY Qty: 90 RF: 3 calcium carbonate 600 mg calcium (1,500 mg) tablet 600 mg PO BID Qty: 180 RF: 3 citalopram 10 mg tablet 10 mg PO DAILY Qty: 90 RF: 0 clopidogrel [Plavix] 75 mg tablet 75 mg PO DAILY 30 Days Qty: 30 RF: 0 doxazosin 2 mg tablet 2 mg PO DAILY Qty: 90 RF: 0 (DME) lancets [FreeStyle Lancets] 28 gauge misc See Rx Instructions .ROUTE .MEDSUPPLY Qty: 100 RF: 3 (DME) blood-glucose meter [FreeStyle System Kit] Kit See Rx Instructions .ROUTE .MEDSUPPLY Qty: 1 RF: 0 levothyroxine 100 mcg tablet 100 mcg PO DAILY@0600 Qty: 90 RF: 1 metformin 500 mg tablet 500 mg PO BIDCM Qty: 180 RF: 3 (DME) pen needle, diabetic [Unifine Pentips] 29 gauge x 1/2 needle See Rx Instructions .ROUTE .MEDSUPPLY Qty: 100 RF: 0 potassium chloride [Klor-Con M20] 20 mEq tablet,ER particles/crystals 20 meq PO BIDCM Qty: 180 RF: 1 (DME) FreeStyle Victorina 14 Day Sensor Kit See Rx Instructions .ROUTE .MEDSUPPLY Qty: 1 RF: 0 Basaglar KwikPen U-100 Insulin 100 unit/mL (3 mL) insulin pen 24 unit subcut QPM 90 Days Qty: 21.6 RF: 3 Primary Care Provider: Tera Butts Referrals: Tera Butts MD [Primary Care Provider] - Disposition Disposition: Home, Self Care
[2022-02-23 15:34] VITALS: BP 138/91; PULSE 98; RESP 16; O2SAT 97
[2022-02-23 16:22] VITALS: BP 112/93; PULSE 92; RESP 16; TEMP 36.6; O2SAT 96
== END 2022-02-23 16:56 | disposition home or self-care (01) ==
PROVIDERS: Emergency Provider Emergency Medicine; PCP Internal Medicine; Visit Provider Emergency Medicine
DX: A41.9 Sepsis, unspecified organism (principal); J44.9 Chronic obstructive pulmonary disease, unspecified; E11.22 Type 2 diabetes mellitus with diabetic chronic kidney disease; N18.30 Chronic kidney disease, stage 3 unspecified; N39.0 Urinary tract infection, site not specified; F17.200 Nicotine dependence, unspecified, uncomplicated; I12.9 Hypertensive chronic kidney disease with stage 1 through stage 4 chronic kidney disease, or unspecified chronic kidney disease; F12.90 Cannabis use, unspecified, uncomplicated; M62.81 Muscle weakness (generalized); E03.9 Hypothyroidism, unspecified; Z86.73 Personal history of transient ischemic attack (TIA), and cerebral infarction without residual deficits
CPT/HCPCS: 80048; 81001; 84484; 85025; 87077; 87086; 87088; 87186; 93005; 99283; J7030

== ENCOUNTER 2022-03-23 13:23 | Emergency (ER) | payer BC, SELFPAY ==
[2022-03-23 13:24] VITALS: BP 169/98; PULSE 81; RESP 16; TEMP 36.4; O2SAT 98; BMI 24.7
--- NOTE | 2022-03-23 14:16 | RAD_ITS ---
STUDY: X-RAY - PELVIS AND RIGHT HIP REASON FOR EXAM: Female, 66 years old. Pain TECHNIQUE: 3 views of the pelvis and hip. COMPARISON: None. FINDINGS: Status post right hip pinning. Heterotopic bone formation adjacent to the right greater trochanter. No evidence of acute fracture or dislocation. Unremarkable hip joints. Pelvic calcifications probably due to phleboliths. RAD/HIP, UNI W/ Pelvis 2-3 Views IMPRESSION: Status post right hip pinning. No demonstrated acute osseous changes. Electronically Signed: Albert Palafox MD at 15:11 EDT ,
[2022-03-23] MEDS: Ketorolac 15 MG/ML Vial IM (14:30)
[2022-03-23] MEDS: Lidocaine 5% Patch 1 PATCH TOPICAL (14:30)
--- NOTE | 2022-03-23 15:08 | ED.VIS.LOWEX ---
HPI History of Present Illness Chief Complaint: Lower Extremity Injury Narrative Narrative: 66-year-old female presenting with right hip pain which is nontraumatic. Patient has a history of right hip replacement which was done distantly. She cannot recall the name of the surgeon who did her hip. She states it was here in [place]. She states that she has been ambulatory with her walker but her hip hurts. She states that Tylenol is not helping. She denies any back pain. No numbness or tingling. PFSH PFS Medical History Arthritis Asthma Breast cancer Carpal tunnel syndrome CKD (chronic kidney disease) stage 3, GFR 30-59 ml/min Constipation COPD (chronic obstructive pulmonary disease) CVA (cerebral vascular accident) Diabetes Flu vaccine need Former smoker Hearing problem High blood pressure Hypertension Hypothyroidism Noncompliance Noncompliance w/medication treatment due to intermit use of medication Right hip pain Right knee pain Sleep apnea Thyroid disease Tobacco abuse Type 2 diabetes mellitus Vertigo Vision problems Home Medications cyclobenzaprine 5 mg tablet 5 mg PO BID PRN muscle spasm #30 tabs 01/04/22 [Rx Last Taken Unknown] lidocaine 5 % topical patch 1 patch topical DAILY PRN pain #30 ea 01/04/22 [Rx Last Taken Unknown] acetaminophen 325 mg capsule 325 - 650 mg PO Q6H PRN fever or pain #90 caps 01/15/22 [Rx Last Taken Unknown] albuterol sulfate 90 mcg/actuation aerosol inhaler 2 puff inhalation Q4H PRN SOB #8.5 grams 01/15/22 [Rx Last Taken Unknown] amlodipine 10 mg tablet 10 mg PO DAILY blood pressure #90 tabs 01/15/22 [Rx Last Taken Unknown] anastrozole 1 mg tablet 1 mg PO DAILY Check with primary doctor #90 tabs 01/15/22 [Rx Last Taken Unknown] blood sugar diagnostic (FreeStyle Test) #100 ea 01/15/22 [Rx Last Taken Unknown] blood-glucose meter (FreeStyle System Kit) #1 ea 01/15/22 [Rx Last Taken Unknown] calcium carbonate 600 mg calcium (1,500 mg) tablet 600 mg PO BID BONES #180 tabs 01/15/22 [Rx Last Taken Unknown] carvedilol 12.5 mg tablet 12.5 mg PO Q12H Check with primary doctor #180 tabs 04/12/22 [Rx Last Taken Unknown] cholecalciferol (vitamin D3) 50 mcg (2,000 unit) tablet 2,000 unit PO DAILY BONES #90 tabs 01/15/22 [Rx Last Taken Unknown] citalopram 10 mg tablet 10 mg PO DAILY #90 tabs 01/15/22 [Rx Last Taken Unknown] clopidogrel 75 mg tablet (Plavix) 75 mg PO DAILY clot prevention 30 days #30 tabs 01/15/22 [Rx Last Taken Unknown] doxazosin 2 mg tablet 2 mg PO DAILY Check with primary doctor #90 tabs 01/15/22 [Rx Last Taken Unknown] lancets 28 gauge (FreeStyle Lancets) #100 ea 01/15/22 [Rx Last Taken Unknown] levothyroxine 100 mcg tablet 100 mcg PO DAILY@0600 HYPOTHYROIDISM #90 tabs 01/15/22 [Rx Last Taken Unknown] metformin 500 mg tablet 500 mg PO BIDCM DIABETES #180 tabs 01/15/22 [Rx Last Taken Unknown] pen needle, diabetic 29 gauge x 1/2 (Unifine Pentips) #100 ea 01/15/22 [Rx Last Taken Unknown] potassium chloride 20 mEq tablet,extended release(part/cryst) (Klor-Con M) 20 meq PO BIDCM low potassium #180 tabs 01/15/22 [Rx Last Taken Unknown] nicotine 21 mg/24 hr daily transdermal patch 21 mg transdermal DAILY Check with primary doctor 01/27/22 [History Last Taken Unknown] cephalexin 500 mg capsule 500 mg PO BID #10 caps 01/29/22 [Rx Last Taken Unknown] lisinopril 10 mg tablet 30 mg PO DAILY 30 days #90 tabs 01/29/22 [Rx Last Taken Unknown] prednisone 10 mg tablet See Taper PO DAILY #30 tabs 01/29/22 [Rx Last Taken Unknown] fluticasone furoate 200 mcg-vilanterol 25 mcg/dose inhalation powder (Breo Ellipta) 1 inh inhalation Q24H #60 ea 02/05/22 [Rx Last Taken Unknown] fluticasone furoate 200 mcg-vilanterol 25 mcg/dose inhalation powder (Breo Ellipta) inhalation 02/15/22 [History Last Taken Unknown] nystatin 100,000 unit/gram topical ointment 1 applic topical BID #30 grams 02/15/22 [Rx Last Taken Unknown] levofloxacin 750 mg tablet 750 mg PO DAILY #4 tabs 02/23/22 [Rx Last Taken Unknown] flash glucose sensor (FreeStyle Victorina 14 Day Sensor) #1 ea 02/26/22 [Rx Last Taken Unknown] insulin glargine 100 unit/mL (3 mL) subcutaneous pen (Basaglar KwikPen U-100 Insulin) 22 unit (0.22 mL) subcut BID 3 months #39.6 mL 02/26/22 [Rx Last Taken Unknown] Allergy/AdvReac Type Severity Reaction Status Date / Time aspirin Allergy Unknown Nausea Verified 03/23/22 13:24 albuterol AdvReac I GET VERY Verified 03/23/22 13:24 SHAKEY/HYPERVENTILATING Penicillins AdvReac Nausea/Vom/ Verified 03/23/22 13:24 Diarrhea Family History Father Cancer bone cancer Brother Heart disease Surgical History H/O mastectomy History of appendectomy History of section Social History household members: spouse Smoking Status: Current every day smoker tobacco type: cigarettes Tobacco: How many years used: 50 alcohol intake: never substance use type: marijuana and other details: smokes 4 joints a day ROS ROS ED Review of Systems ROS Unobtainable: Denies due to encephalopathy Constitutional Constitutional ED: Denies chills or fever(s) Eyes Eyes: Denies blurry vision or change in vision ENT ENT ED: Denies rhinorrhea or sore throat Cardiovascular Cardiovascular: Denies chest pain or palpitations Respiratory/Chest Respiratory/Chest: Denies cough or dyspnea Gastrointestinal Gastrointestinal: Denies abdominal pain or constipation Genitourinary Genitourinary ED: Denies dysuria Musculoskeletal Musculoskeletal: Reports other Details: Right hip pain Integumentary Denies abscess or Abrasions Neurologic Neurologic: Denies headache(s) or paresthesias Psychiatric Psychiatric: Denies anxiety or depression Endocrine Endocrinology: Denies polydipsia or polyphagia EXAM Physical Exam Const Vital Signs: 03/23/22 13:24 03/23/22 16:39 Temperature 97.5 F L Temperature Source Temporal Pulse Rate 81 75 Respiratory Rate 16 16 Blood Pressure 169/98 H 170/102 H Blood Pressure Mean 121 Pulse Ox 98 97 Oxygen Delivery Method Room Air Positive well nourished and obese General Appearance ED: NAD Nutritional Appearance: obese HEENT Reports moist mucous membranes Resp normal respiratory effort Cardio regular rate and regular rhythm GI non-tender Back/Spine Thoracic Spine / Upper Back: Negative for thoracic spinal tenderness Lumbar Spine / Lower Back: Negative for lumbar spinal tenderness Extremity Extremity Narrative: Tenderness to palpation over right greater trochanter. Patient able to flex the hip under her own strength off the bed and within the air. No leg shortening. No bruising or rash. Neuro oriented x3 and CN's II-XII intact bilaterally Sensorium / Orientation: alert, oriented to person, oriented to place and oriented to time Psych mental status grossly normal Skin Lesions: no lesions Rashes: no rashes MDM MDM MDM Narrative Medical decision making narrative: X-raysPatient received a shot of Toradol. The right hip which on my interpretation no acute fracture. Her previous pinning appears to be in place. I discussed with her that Dr. El Maurer had done her hip as she could not recall this. It looks as if in the notes that she was supposed to followed up with him last time she came to the ER and was given pain medication but never made the follow-up. I recommended to her that she follow-up with Dr. Maurer and if he cannot alleviate her pain that she should have him refer her to pain management. I did also recommend that she do more getting up and walking with her walker with assistance from her family rather than laying around as the family had indicated that she was not moving around as much. Impression: 1. Right hip strain Radiography Diagnostic Testing: Clinical Impression(s) from Imaging Studies Hip/Pelvis X-Ray 03/23/22 14:16 IMPRESSION: Status post right hip pinning. No demonstrated acute osseous changes. Electronically Signed: Albert Palafox MD at 15:11 EDT , Discharge Plan Triage Chief Complaint: Lower Extremity Injury ED Provider: Tommie Valera Dx/Rx/DC Orders Instructions: ED Hip Strain Prescriptions: No Action cyclobenzaprine 5 mg tablet 5 mg PO BID PRN (Reason: muscle spasm) Qty: 30 0RF lidocaine 5 % adhesive patch,medicated 1 patch topical DAILY PRN (Reason: pain) Qty: 30 1RF Rx Instructions: leave on most painful area for up to 12 hrs Breo Ellipta 200-25 mcg/dose blister with device 1 inh inhalation Q24H Qty: 60 3RF nicotine 21 mg/24 hr patch 24 hour 21 mg transdermal DAILY lisinopril 10 mg Tablet 30 mg PO DAILY 30 Days Qty: 90 0RF cephalexin 500 mg capsule 500 mg PO BID Qty: 10 0RF prednisone 10 mg tablet See Taper PO DAILY Qty: 30 0RF Taper: Prednisone Taper 40 mg WITH BREAKFAST for 3 Days and 0 Hour 30 mg WITH BREAKFAST for 3 Days and 0 Hour 20 mg WITH BREAKFAST for 3 Days and 0 Hour 10 mg WITH BREAKFAST for 3 Days and 0 Hour Rx Instructions: 40 mg for 3 days, 30 mg for 3 days, 20 mg for 3 days, 10 mg for 3 days Breo Ellipta 200-25 mcg/dose blister with device INHALATION nystatin 100,000 unit/gram ointment 1 applic topical BID Qty: 30 0RF Rx Instructions: Apply to buttocks and perineum rash levofloxacin 750 mg tablet 750 mg PO DAILY Qty: 4 0RF acetaminophen 325 mg capsule 325 - 650 mg PO Q6H PRN (Reason: fever or pain) Qty: 90 0RF albuterol sulfate 90 mcg/actuation HFA aerosol inhaler 2 puff INHALATION Q4H PRN (Reason: SOB) Qty: 8.5 3RF amlodipine 10 mg tablet 10 mg PO DAILY Qty: 90 3RF anastrozole 1 mg tablet 1 mg PO DAILY Qty: 90 0RF (DME) FreeStyle Test Strip See Rx Instructions .ROUTE .MEDSUPPLY Qty: 100 3RF Rx Instructions: check blood glucose 3 times a day carvedilol 12.5 mg tablet 12.5 mg PO Q12H Qty: 180 1RF Rx Instructions: must administer with a meal/food cholecalciferol (vitamin D3) 50 mcg (2,000 unit) tablet 2,000 unit PO DAILY Qty: 90 3RF calcium carbonate 600 mg calcium (1,500 mg) tablet 600 mg PO BID Qty: 180 3RF citalopram 10 mg tablet 10 mg PO DAILY Qty: 90 0RF clopidogrel [Plavix] 75 mg tablet 75 mg PO DAILY 30 Days Qty: 30 0RF doxazosin 2 mg tablet 2 mg PO DAILY Qty: 90 0RF (DME) lancets [FreeStyle Lancets] 28 gauge misc See Rx Instructions .ROUTE .MEDSUPPLY Qty: 100 3RF Rx Instructions: Check blood glucose three times daily for type 2 DM (DME) blood-glucose meter [FreeStyle System Kit] Kit See Rx Instructions .ROUTE .MEDSUPPLY Qty: 1 0RF Rx Instructions: check blood glucose 3 times a day for type 2 DM levothyroxine 100 mcg tablet 100 mcg PO DAILY@0600 Qty: 90 1RF metformin 500 mg tablet 500 mg PO BIDCM Qty: 180 3RF (DME) pen needle, diabetic [Unifine Pentips] 29 gauge x 1/2 needle See Rx Instructions .ROUTE .MEDSUPPLY Qty: 100 0RF Rx Instructions: use 1 new needed as directed with each insulin injection potassium chloride [Klor-Con M20] 20 mEq tablet,ER particles/crystals 20 meq PO BIDCM Qty: 180 1RF (DME) FreeStyle Victorina 14 Day Sensor Kit See Rx Instructions .ROUTE .MEDSUPPLY Qty: 1 0RF Rx Instructions: Check blood sugar 3 times a day and as needed Basaglar KwikPen U-100 Insulin 100 unit/mL (3 mL) insulin pen 22 unit subcut BID 90 Days Qty: 39.6 3RF Primary Care Provider: Tera Butts Referrals: Tera Butts MD [Primary Care Provider] - Disposition Disposition: Home, Self Care Discharge Date/Time: 03/23/22 16:48
[2022-03-23 16:39] VITALS: BP 170/102; PULSE 75; RESP 16; O2SAT 97
== END 2022-03-23 16:48 | disposition home or self-care (01) ==
PROVIDERS: Emergency Provider Student in an Organized Health Care Education/Training Program; PCP Internal Medicine; Visit Provider Student in an Organized Health Care Education/Training Program
DX: S73.101A Unspecified sprain of right hip, initial encounter (principal); J44.9 Chronic obstructive pulmonary disease, unspecified; E11.22 Type 2 diabetes mellitus with diabetic chronic kidney disease; N18.30 Chronic kidney disease, stage 3 unspecified; I12.9 Hypertensive chronic kidney disease with stage 1 through stage 4 chronic kidney disease, or unspecified chronic kidney disease; F12.90 Cannabis use, unspecified, uncomplicated; F17.200 Nicotine dependence, unspecified, uncomplicated; Z96.641 Presence of right artificial hip joint; Z85.3 Personal history of malignant neoplasm of breast; E03.9 Hypothyroidism, unspecified; X58.XXXA Exposure to other specified factors, initial encounter
CPT/HCPCS: 73502; 96372; 99282

== ENCOUNTER 2022-04-04 12:08 | Outpatient (RCR) | payer BC, SELFPAY ==
[2022-04-04 12:54] LABS: Color, Urine Yellow (Yellow); Glucose, Dipstick 1000 mg/dl (Normal); Ketone-Dipstick Negative (Negative); Leukocyte Esterase-Dipstick 500 /ul (Negative); Nitrite-Dipstick Negative (Negative); Occult Blood-Urine 150 /ul (Negative); Protein-Dipstick 500 mg/dl (Negative); Specific Gravity, Urine 1.015 (1.002-1.030); Urine Bilirubin Dipstick Negative (Negative); Urine Clarity Turbid (Clear); Urine Urobilinogen Normal (Normal)
== END 2022-04-04 23:59 ==
LOC: HHLAB 12:08
PROVIDERS: PCP Internal Medicine; Visit Provider Nurse Practitioner Family
DX: I69.354 Hemiplegia and hemiparesis following cerebral infarction affecting left non-dominant side (principal); S72.001D Fracture of unspecified part of neck of right femur, subsequent encounter for closed fracture with routine healing; X58.XXXD Exposure to other specified factors, subsequent encounter; E11.9 Type 2 diabetes mellitus without complications
CPT/HCPCS: 81002; 87077; 87086; 87088; 87186

== ENCOUNTER 2022-04-05 13:33 | Emergency (ER) | payer BC, SELFPAY ==
[2022-04-05 13:34] VITALS: BP 179/119; PULSE 92; RESP 18; TEMP 36.2; O2SAT 93; BMI 24.6
--- NOTE | 2022-04-05 13:50 | EDS_ITS ---
HPI History of Present Illness Chief Complaint: Complaint Detail of Chief Complaint: dysuria Informant: patient and spouse/S.O. Onset/Context/Timing Onset: Weeks (2) Context: Gradual Onset Timing: Continuous Quality: dysuria Current Severity: Moderate Maximum Severity: Moderate Worsened by: urinating Relieved by: nothing Associated Symptoms Associated Symptoms: ur freq/urg, suprapubic pressure, low back discomfort Narrative Narrative: Patient states she is having symptoms of a urine infection, she has had the symptoms for several weeks, she had a urinalysis ordered for her and when they took it to the labs she was told it was invalid because is more than 1 day old. She is here now to have it addressed. She is having some lower abdominal discomfort, she denies any fevers, chills, nausea, vomiting, or unilateral back pain. She states she has a history of frequent urinary tract infections. [facility] Medical History Arthritis Asthma Breast cancer Carpal tunnel syndrome CKD (chronic kidney disease) stage 3, GFR 30-59 ml/min Constipation COPD (chronic obstructive pulmonary disease) CVA (cerebral vascular accident) Diabetes Flu vaccine need Former smoker Hearing problem High blood pressure Hypertension Hypothyroidism Noncompliance Noncompliance w/medication treatment due to intermit use of medication Right hip pain Right knee pain Sleep apnea Thyroid disease Tobacco abuse Type 2 diabetes mellitus Vertigo Vision problems Home Medications cyclobenzaprine 5 mg tablet 5 mg PO BID PRN muscle spasm #30 tabs 01/04/22 [Rx Last Taken Unknown] lidocaine 5 % topical patch 1 patch topical DAILY PRN pain #30 ea 01/04/22 [Rx Last Taken Unknown] acetaminophen 325 mg capsule 325 - 650 mg PO Q6H PRN fever or pain #90 caps 01/15/22 [Rx Last Taken Unknown] albuterol sulfate 90 mcg/actuation aerosol inhaler 2 puff inhalation Q4H PRN SOB #8.5 grams 01/15/22 [Rx Last Taken Unknown] amlodipine 10 mg tablet 10 mg PO DAILY blood pressure #90 tabs 01/15/22 [Rx Last Taken Unknown] anastrozole 1 mg tablet 1 mg PO DAILY Check with primary doctor #90 tabs 01/15/22 [Rx Last Taken Unknown] blood sugar diagnostic (FreeStyle Test) #100 ea 01/15/22 [Rx Last Taken Unknown] blood-glucose meter (FreeStyle System Kit) #1 ea 01/15/22 [Rx Last Taken Unknown] calcium carbonate 600 mg calcium (1,500 mg) tablet 600 mg PO BID BONES #180 tabs 01/15/22 [Rx Last Taken Unknown] carvedilol 12.5 mg tablet 12.5 mg PO Q12H Check with primary doctor #180 tabs 01/15/22 [Rx Last Taken Unknown] cholecalciferol (vitamin D3) 50 mcg (2,000 unit) tablet 2,000 unit PO DAILY BONES #90 tabs 01/15/22 [Rx Last Taken Unknown] citalopram 10 mg tablet 10 mg PO DAILY #90 tabs 01/15/22 [Rx Last Taken Unknown] clopidogrel 75 mg tablet (Plavix) 75 mg PO DAILY clot prevention 30 days #30 tabs 01/15/22 [Rx Last Taken Unknown] doxazosin 2 mg tablet 2 mg PO DAILY Check with primary doctor #90 tabs 01/15/22 [Rx Last Taken Unknown] lancets 28 gauge (FreeStyle Lancets) #100 ea 01/15/22 [Rx Last Taken Unknown] levothyroxine 100 mcg tablet 100 mcg PO DAILY@0600 HYPOTHYROIDISM #90 tabs 01/15/22 [Rx Last Taken Unknown] metformin 500 mg tablet 500 mg PO BIDCM DIABETES #180 tabs 01/15/22 [Rx Last Taken Unknown] pen needle, diabetic 29 gauge x 1/2 (Unifine Pentips) #100 ea 01/15/22 [Rx Last Taken Unknown] potassium chloride 20 mEq tablet,extended release(part/cryst) (Klor-Con M) 20 meq PO BIDCM low potassium #180 tabs 01/15/22 [Rx Last Taken Unknown] nicotine 21 mg/24 hr daily transdermal patch 21 mg transdermal DAILY Check with primary doctor 01/27/22 [History Last Taken Unknown] cephalexin 500 mg capsule 500 mg PO BID #10 caps 01/29/22 [Rx Last Taken Unknown] lisinopril 10 mg tablet 30 mg PO DAILY 30 days #90 tabs 01/29/22 [Rx Last Taken Unknown] prednisone 10 mg tablet See Taper PO DAILY #30 tabs 01/29/22 [Rx Last Taken Unknown] fluticasone furoate 200 mcg-vilanterol 25 mcg/dose inhalation powder (Breo Ellipta) 1 inh inhalation Q24H #60 ea 02/05/22 [Rx Last Taken Unknown] fluticasone furoate 200 mcg-vilanterol 25 mcg/dose inhalation powder (Breo Ellipta) inhalation 02/15/22 [History Last Taken Unknown] nystatin 100,000 unit/gram topical ointment 1 applic topical BID #30 grams 02/15/22 [Rx Last Taken Unknown] levofloxacin 750 mg tablet 750 mg PO DAILY #4 tabs 02/23/22 [Rx Last Taken Unknown] flash glucose sensor (FreeStyle Victorina 14 Day Sensor) #1 ea 02/26/22 [Rx Last Taken Unknown] insulin glargine 100 unit/mL (3 mL) subcutaneous pen (Basaglar KwikPen U-100 Insulin) 22 unit (0.22 mL) subcut BID 3 months #39.6 mL 02/26/22 [Rx Last Taken Unknown] nitrofurantoin monohydrate/macrocrystals 100 mg capsule 100 mg PO Q12 #14 CAPSULES 04/05/22 [Rx Last Taken Unknown] Allergy/AdvReac Type Severity Reaction Status Date / Time aspirin Allergy Unknown Nausea Verified 04/05/22 13:34 albuterol AdvReac I GET VERY Verified 04/05/22 13:34 SHAKEY/HYPERVENTILATING Penicillins AdvReac Nausea/Vom/ Verified 04/05/22 13:34 Diarrhea Family History Father Cancer bone cancer Brother Heart disease Surgical History H/O mastectomy History of appendectomy History of section Social History household members: spouse Smoking Status: Current every day smoker tobacco type: cigarettes Tobacco: How many years used: 50 alcohol intake: never substance use type: marijuana and other details: smokes 4 joints a day ROS ROS ED Constitutional Constitutional ED: Denies chills or fever(s) Eyes Eyes: Denies change in vision or diplopia ENT ENT ED: Denies rhinorrhea or sore throat Cardiovascular Cardiovascular: Denies chest pain or palpitations Respiratory/Chest Respiratory/Chest: Denies cough or dyspnea Gastrointestinal Gastrointestinal: Reports abdominal pain; Denies diarrhea, nausea or vomiting Genitourinary Genitourinary ED: Reports dysuria and urinary frequency; Denies hematuria Musculoskeletal Musculoskeletal: Reports back pain; Denies neck pain Integumentary Denies abscess or rash Neurologic Neurologic: Denies headache(s), paresthesias or weakness Psychiatric Psychiatric: Denies anxiety or suicidal thoughts EXAM Physical Exam Const Vital Signs: 04/05/22 13:34 Temperature 97.1 F L Temperature Source Temporal Pulse Rate 92 Respiratory Rate 18 Blood Pressure 179/119 H Blood Pressure Mean 139 Pulse Ox 93 Oxygen Delivery Method Room Air Positive well nourished, well developed and unkempt General Appearance ED: unkempt, well developed and NAD HEENT Reports moist mucous membranes normocephalic and atraumatic Eyes PERRL and EOMs intact bilaterally Neck full ROM and supple Resp normal respiratory effort and clear to auscultation bilaterally Cardio regular rate, regular rhythm and no murmurs GI non-distended GI Narrative: Mild suprapubic tenderness otherwise benign abdomen. No guarding or rebound. Auscultation: normoactive bowel sounds Palpation: soft Back/Spine no CVA tenderness General Back: other FROM Extremity normal to inspection General Extremety ED: Negative for edema, pulses abnormal or tenderness General Extremity: Negative for edema or pulses abnormal Neuro oriented x3, CN's II-XII intact bilaterally and no sensory deficits noted Sensorium / Orientation: awake and alert Motor Exam: strength 5/5 throughout Psych Appearance: unkempt Skin no rashes or lesions noted and no wounds MDM MDM MDM Narrative Medical decision making narrative: Urine consistent with infection. We will place her on Macrobid and advised her to follow-up or return if this does not help. Lab Data Attestation: I reviewed the patient's lab results. Labs: Laboratory Results - last 24 hr 04/05/22 14:01 Urine Color Yellow Urine Clarity Turbid Urine pH 5.0 Ur Specific [place] 1.020 Urine Protein 500 H Urine Glucose (UA) 1000 H Urine Ketones Negative Urine Occult Blood 150 H Urine Nitrite Negative Urine Bilirubin Negative Urine Urobilinogen Normal Ur Leukocyte Esterase 500 H Urine RBC 0 SEEN Urine WBC >100 SEEN Ur Squamous Epith Cells 0 SEEN Urine Bacteria 0 SEEN Urine Mucus 0 SEEN Discharge Plan Triage Chief Complaint: Complaint ED Provider: Nam Mazariegos Dx/Rx/DC Orders Clinical Impression: Acute cystitis without hematuria Instructions: ED CYSTITIS Female Adult Prescriptions: New nitrofurantoin monohyd/m-cryst [nitrofurantoin monohyd/m-cryst] 100 mg capsule 100 mg PO Q12 Qty: 14 0RF No Action cyclobenzaprine 5 mg tablet 5 mg PO BID PRN (Reason: muscle spasm) Qty: 30 0RF lidocaine 5 % adhesive patch,medicated 1 patch topical DAILY PRN (Reason: pain) Qty: 30 1RF Rx Instructions: leave on most painful area for up to 12 hrs Breo Ellipta 200-25 mcg/dose blister with device 1 inh inhalation Q24H Qty: 60 3RF nicotine 21 mg/24 hr patch 24 hour 21 mg transdermal DAILY lisinopril 10 mg Tablet 30 mg PO DAILY 30 Days Qty: 90 0RF cephalexin 500 mg capsule 500 mg PO BID Qty: 10 0RF prednisone 10 mg tablet See Taper PO DAILY Qty: 30 0RF Taper: Prednisone Taper 40 mg WITH BREAKFAST for 3 Days and 0 Hour 30 mg WITH BREAKFAST for 3 Days and 0 Hour 20 mg WITH BREAKFAST for 3 Days and 0 Hour 10 mg WITH BREAKFAST for 3 Days and 0 Hour Rx Instructions: 40 mg for 3 days, 30 mg for 3 days, 20 mg for 3 days, 10 mg for 3 days Breo Ellipta 200-25 mcg/dose blister with device INHALATION nystatin 100,000 unit/gram ointment 1 applic topical BID Qty: 30 0RF Rx Instructions: Apply to buttocks and perineum rash levofloxacin 750 mg tablet 750 mg PO DAILY Qty: 4 0RF acetaminophen 325 mg capsule 325 - 650 mg PO Q6H PRN (Reason: fever or pain) Qty: 90 0RF albuterol sulfate 90 mcg/actuation HFA aerosol inhaler 2 puff INHALATION Q4H PRN (Reason: SOB) Qty: 8.5 3RF amlodipine 10 mg tablet 10 mg PO DAILY Qty: 90 3RF anastrozole 1 mg tablet 1 mg PO DAILY Qty: 90 0RF (DME) FreeStyle Test Strip See Rx Instructions .ROUTE .MEDSUPPLY Qty: 100 3RF Rx Instructions: check blood glucose 3 times a day carvedilol 12.5 mg tablet 12.5 mg PO Q12H Qty: 180 1RF Rx Instructions: must administer with a meal/food cholecalciferol (vitamin D3) 50 mcg (2,000 unit) tablet 2,000 unit PO DAILY Qty: 90 3RF calcium carbonate 600 mg calcium (1,500 mg) tablet 600 mg PO BID Qty: 180 3RF citalopram 10 mg tablet 10 mg PO DAILY Qty: 90 0RF clopidogrel [Plavix] 75 mg tablet 75 mg PO DAILY 30 Days Qty: 30 0RF doxazosin 2 mg tablet 2 mg PO DAILY Qty: 90 0RF (DME) lancets [FreeStyle Lancets] 28 gauge misc See Rx Instructions .ROUTE .MEDSUPPLY Qty: 100 3RF Rx Instructions: Check blood glucose three times daily for type 2 DM (DME) blood-glucose meter [FreeStyle System Kit] Kit See Rx Instructions .ROUTE .MEDSUPPLY Qty: 1 0RF Rx Instructions: check blood glucose 3 times a day for type 2 DM levothyroxine 100 mcg tablet 100 mcg PO DAILY@0600 Qty: 90 1RF metformin 500 mg tablet 500 mg PO BIDCM Qty: 180 3RF (DME) pen needle, diabetic [Unifine Pentips] 29 gauge x 1/2 needle See Rx Instructions .ROUTE .MEDSUPPLY Qty: 100 0RF Rx Instructions: use 1 new needed as directed with each insulin injection potassium chloride [Klor-Con M20] 20 mEq tablet,ER particles/crystals 20 meq PO BIDCM Qty: 180 1RF (DME) FreeStyle Victorina 14 Day Sensor Kit See Rx Instructions .ROUTE .MEDSUPPLY Qty: 1 0RF Rx Instructions: Check blood sugar 3 times a day and as needed Basaglar KwikPen U-100 Insulin 100 unit/mL (3 mL) insulin pen 22 unit subcut BID 90 Days Qty: 39.6 3RF Primary Care Provider: Tera Butts Referrals: Tera Butts MD [Primary Care Provider] - 3-5 Days if not improving Disposition Disposition: Home, Self Care
[2022-04-05 14:05] LABS: Bacteria 0 SEEN /hpf (None Seen); Mucous, Urine 0 SEEN /hpf (<or=2+); Red Blood Cells-Urine 0 SEEN /hpf (0-5); Squamous Epithelial Cells - UA 0 SEEN /hpf (5-10)
[2022-04-05 14:06] LABS: Color, Urine Yellow (Yellow); Glucose, Dipstick 1000 mg/dl (Normal); Ketone-Dipstick Negative (Negative); Leukocyte Esterase-Dipstick 500 /ul (Negative); Nitrite-Dipstick Negative (Negative); Occult Blood-Urine 150 /ul (Negative); Protein-Dipstick 500 mg/dl (Negative); Urine Bilirubin Dipstick Negative (Negative); Urine Clarity Turbid (Clear); Urine Urobilinogen Normal (Normal)
[2022-04-05 14:13] LABS: White Blood Cells >100 SEEN /hpf (0-5)
== END 2022-04-05 15:45 | disposition home or self-care (01) ==
PROVIDERS: Emergency Provider Emergency Medicine; PCP Internal Medicine; Visit Provider Emergency Medicine
DX: N30.00 Acute cystitis without hematuria (principal); J44.9 Chronic obstructive pulmonary disease, unspecified; E11.22 Type 2 diabetes mellitus with diabetic chronic kidney disease; N18.30 Chronic kidney disease, stage 3 unspecified; F17.200 Nicotine dependence, unspecified, uncomplicated; F12.90 Cannabis use, unspecified, uncomplicated; I12.9 Hypertensive chronic kidney disease with stage 1 through stage 4 chronic kidney disease, or unspecified chronic kidney disease; Z86.73 Personal history of transient ischemic attack (TIA), and cerebral infarction without residual deficits; Z85.3 Personal history of malignant neoplasm of breast
CPT/HCPCS: 81001; 99282

== ENCOUNTER 2022-04-23 13:47 | Emergency (ER) | payer BC, SELFPAY ==
[2022-04-23 13:49] VITALS: BP 191/132; PULSE 84; RESP 18; TEMP 36.6; O2SAT 95; BMI 26.1
--- NOTE | 2022-04-23 14:02 | EKG12_ITS ---
Test Reason : Headache Blood Pressure : / mmHG Vent. Rate : 079 BPM Atrial Rate : 079 BPM P-R Int : 156 ms QRS Dur : 080 ms QT Int : 400 ms P-R-T Axes : 044 003 219 degrees QTc Int : 458 ms Normal sinus rhythm Septal infarct (cited on or before 15-FEB-2022) T wave abnormality, consider inferolateral ischemia Abnormal ECG Confirmed by KATHARINA LEO, MYRON ([id number]), editor school photograph CARLOS SNELL ([id number]) on 04/26/2022 8:01:40 AM Referred By: Soto Confirmed By:MYRON POSADAS MD
--- NOTE | 2022-04-23 14:02 | CT_ITS ---
STUDY: CT BRAIN WITHOUT CONTRAST REASON FOR EXAM: Female, 67 years old. Headache. Hypertension. Confusion. RADIATION DOSAGE (If Supplied By Facility): CTDIvol = ( 44.99 ) mGy, DLP = ( 745.49 ) mGycm TECHNIQUE: Transaxial CT imaging of the brain was performed without administration of intravenous contrast material. Individualized dose optimization techniques were used for this CT. COMPARISON: Comparison is made with prior study dated 10/03/2021. FINDINGS: Normal soft tissue structures. Normal calvarium. There is mild cerebral atrophy with widening of the extra-axial spaces and ventricular dilatation. There are areas of decreased attenuation within the white matter tracts of the supratentorial brain, consistent with microvascular disease changes. Stable lacunar infarcts in the basal ganglia bilaterally including the insular cortex. Normal brainstem. Normal cerebellum. There is no intracranial hemorrhage. There are no findings of an acute ischemic infarction. Atherosclerotic calcification of the cavernous portions of the internal carotid arteries bilaterally. Normal visualized paranasal sinuses. CT/Brain/Head without Contrast IMPRESSION: Chronic involutional changes of the brain. Electronically Signed: Billy Heath MD at 14:55 EDT ,
--- NOTE | 2022-04-23 14:02 | RAD_ITS ---
STUDY: X-RAY CHEST REASON FOR EXAM: Female, 67 years old. Weakness TECHNIQUE: Single AP portable view of the chest. COMPARISON: Comparison is made with prior study dated 02/15/2022. FINDINGS: EKG electrodes are seen. Surgical clips are seen in the left axilla. The lungs are clear and expanded. There is no demonstrated pleural abnormality. Normal size heart. Normal mediastinum and jason. Normal visualized pulmonary arteries. There is atherosclerotic tortuosity of the aortic arch and descending thoracic aorta. There are degenerative changes of the visualized thoracic spine. Normal visualized ribs, clavicles, and shoulders. There is no demonstrated abnormality of the visualized soft tissue structures of the upper abdomen. RAD/Chest 1 View (Portable) IMPRESSION: No acute abnormality is seen. Electronically Signed: Billy Heath MD at 14:49 EDT ,
--- NOTE | 2022-04-23 14:05 | EX.ED.VIS.HA ---
HPI History of Present Illness Chief Complaint: Headache Narrative Narrative: 67-year-old female presenting for headache. She states that her home health care aides came out today and noticed that her blood pressure was very high. She states that her typically manages her medications. She states additionally that she has been taking them and her gives them to her. She also states that she does not want to take her medications anymore. She states her checked her blood pressure and saw that it was high this morning. She also states that home health care aides took her blood pressure and saw that it was high. Patient reports that she is taking her diabetic medications she believes. Her glucose by EMS was 516. Patient denies polyuria, polyphagia, polydipsia patient has no visual complaints, nausea, vomiting. She is not having chest pain or shortness of breath. No fevers, chills. She reports that she is eating. No fevers or chills. PFSH PFSH Medical History Arthritis Asthma Breast cancer Carpal tunnel syndrome CKD (chronic kidney disease) stage 3, GFR 30-59 ml/min Constipation COPD (chronic obstructive pulmonary disease) CVA (cerebral vascular accident) Diabetes Flu vaccine need Former smoker Hearing problem High blood pressure Hypertension Hypothyroidism Noncompliance Noncompliance w/medication treatment due to intermit use of medication Right hip pain Right knee pain Sleep apnea Thyroid disease Tobacco abuse Type 2 diabetes mellitus Vertigo Vision problems Home Medications cephalexin 500 mg capsule 500 mg PO Q12 #14 caps 04/23/22 [Rx Last Taken Unknown] Allergy/AdvReac Type Severity Reaction Status Date / Time aspirin Allergy Unknown Nausea Verified 04/23/22 13:59 albuterol AdvReac I GET VERY Verified 04/23/22 13:59 SHAKEY/HYPERVENTILATING Penicillins AdvReac Nausea/Vom/ Verified 04/23/22 13:59 Diarrhea Family History Father Cancer bone cancer Brother Heart disease Surgical History H/O mastectomy History of appendectomy History of section Social History household members: spouse Smoking Status: Current every day smoker tobacco type: cigarettes Tobacco: How many years used: 50 alcohol intake: never substance use type: marijuana and other details: smokes 4 joints a day ROS ROS ED Constitutional Constitutional ED: Denies chills or fever(s) Eyes Eyes: Denies change in vision or diplopia ENT ENT ED: Denies rhinorrhea or sore throat Cardiovascular Cardiovascular: Denies chest pain or palpitations Respiratory/Chest Respiratory/Chest: Denies cough or dyspnea Gastrointestinal Gastrointestinal: Denies abdominal pain, constipation, diarrhea or nausea Genitourinary Genitourinary ED: Denies dysuria or hematuria Musculoskeletal Musculoskeletal: Denies arthralgias or back pain Integumentary Denies abscess Neurologic Neurologic: Reports headache(s); Denies paresthesias Psychiatric Psychiatric: Reports depression; Denies anxiety EXAM Physical Exam Const Vital Signs: 04/23/22 13:49 04/23/22 15:08 04/23/22 15:55 Temperature 97.9 F Temperature Source Temporal Pulse Rate 84 70 67 Respiratory Rate 18 16 18 Blood Pressure 191/132 H 158/107 H 168/94 H Blood Pressure Mean 151 124 118 Pulse Ox 95 92 95 Oxygen Delivery Method Room Air Room Air Room Air 04/23/22 17:00 Temperature Temperature Source Pulse Rate 67 Respiratory Rate 15 Blood Pressure 169/107 H Blood Pressure Mean 127 Pulse Ox 93 Oxygen Delivery Method Room Air Positive well nourished General Appearance ED: NAD; Negative for pallor HEENT Reports normocephalic and moist mucous membranes atraumatic Eyes PERRL and EOMs intact bilaterally Resp normal respiratory effort and clear to auscultation bilaterally Cardio regular rate and regular rhythm GI non-tender Extremity normal to inspection General Extremety ED: Negative for edema or tenderness General Extremity: Negative for edema Neuro oriented x3 and CN's II-XII intact bilaterally Sensorium / Orientation: awake and alert Motor Exam: general weakness Psych Mood & Affect: depressed Skin General Skin Exam: Negative for jaundice or pallor MDM MDM MDM Narrative Medical decision making narrative: Patient presenting with headache. She is found to be hypertensive and hyperglycemic. Her blood pressure was 191/132 on arrival. Patient was given 20 labetalol. She was also given Reglan, Benadryl for her headache. This was similar via EMS. Work-up was obtained due to diabetic hyperglycemia as well as hypertension and headache. EKG obtained and on my interpretation shows normal sinus rhythm with a ventricular rate of 79 bpm. T wave inversions are noted in the 4 through V6 as well as leads II and aVF. No ST elevations or depressions. High-sensitivity troponin is 48. Patient is not reporting any chest pain or abdominal pain. She has no nausea. I did obtain blood work and her CBC shows a leukocytosis of 14.6. Hemoglobin hematocrit are stable. Platelets are normal. Creatinine slightly elevated at 1.6. Patient was given a liter of IV fluids. Glucose is 440. There is no anion gap. Serum acetone negative. Urinalysis consistent with infection. She is given a dose of Rocephin IV. Urine culture sent. On reevaluation her headache is improved. Her blood pressure is now 168/94. Repeat blood sugar reported around 280. Patient given 10 units of insulin cutaneously. Patient can recheck her blood sugar at home. That she has a UTI she was placed on Keflex. I had social work come and see the patient because she is noncompliant whether it is willingly or she is unable to get enough help. They will send aids to the house to help her with her medications. She also will send Adult Protective Services to ensure the living environment is okay. Patient is amenable to this help. Chest x-ray returned negative on my interpretation. I see no signs of acute cardiopulmonary process. Radiologist agree. CT of the brain is negative for any acute intracranial findings. At this point I feel she is stable for discharge and she does not want to stay in the hospital. I spoke with her primary care physician who will follow up with her closely. Impression: 1. Hyperglycemia 2. Hypertension 3. Medical noncompliance 4. Leukocytosis 5. Dehydration 6. Headache 7. UTI Lab Data Attestation: I reviewed the patient's lab results. Labs: Laboratory Results - last 24 hr 04/23/22 04/23/22 04/23/22 14:10 14:10 14:10 WBC 14.6 H RBC 5.11 Hgb 14.4 Hct 43.2 MCV 84.5 MCH 28.2 MCHC 33.3 RDW Std Deviation 42.7 RDW Coeff of Chad 13.7 Plt Count 289 MPV 11.0 Immature Gran % (Auto) 0.900 Neut % (Auto) 72.6 H Lymph % (Auto) 20.2 Kaufman % (Auto) 4.8 Eos % (Auto) 0.9 Baso % (Auto) 0.6 Absolute Neuts (auto) 10.6 H Absolute Lymphs (auto) 2.96 Nucleated RBC % 0 Sodium 134 L Potassium 3.7 Chloride 98 Carbon Dioxide 29.0 Anion Gap 7 BUN 27 H Creatinine 1.60 H Estim Creat Clear Calc 24.17 Est GFR (MDRD) Af Amer 41 L Est GFR (MDRD) Non-Af 34 L BUN/Creatinine Ratio 16.9 Glucose 440 H Calcium 9.2 Total Bilirubin 0.30 AST 11 L ALT 14 Alkaline Phosphatase 135 H Troponin I High Sens 48 Total Protein 6.6 Albumin 2.7 L Globulin 3.9 Albumin/Globulin Ratio 0.7 L Urine Color Urine Clarity Urine pH Ur Specific [place] Urine Protein Urine Glucose (UA) Urine Ketones Urine Occult Blood Urine Nitrite Urine Bilirubin Urine Urobilinogen Ur Leukocyte Esterase Urine RBC Urine WBC Ur Squamous Epith Cells Urine Bacteria Urine Mucus Acetone Level NEGATIVE 04/23/22 14:55 WBC RBC Hgb Hct MCV MCH MCHC RDW Std Deviation RDW Coeff of Chad Plt Count MPV Immature Gran % (Auto) Neut % (Auto) Lymph % (Auto) [place]auf[place] % (Auto) Eos % (Auto) Baso % (Auto) Absolute Neuts (auto) Absolute Lymphs (auto) Nucleated RBC % Sodium Potassium Chloride Carbon Dioxide Anion Gap BUN Creatinine Estim Creat Clear Calc Est GFR (MDRD) Af Amer Est GFR (MDRD) Non-Af BUN/Creatinine Ratio Glucose Calcium Total Bilirubin AST ALT Alkaline Phosphatase Troponin I High Sens Total Protein Albumin Globulin Albumin/Globulin Ratio Urine Color Yellow Urine Clarity Cloudy Urine pH 6.0 Ur Specific [place] 1.020 Urine Protein 500 H Urine Glucose (UA) 1000 H Urine Ketones Negative Urine Occult Blood 250 H Urine Nitrite Positive H Urine Bilirubin Negative Urine Urobilinogen Normal Ur Leukocyte Esterase 500 H Urine RBC 0 SEEN Urine WBC >100 SEEN Ur Squamous Epith Cells 0 SEEN Urine Bacteria 0 SEEN Urine Mucus 0 SEEN Acetone Level Radiography Diagnostic Testing: Clinical Impression(s) from Imaging Studies Brain CT 04/23/22 14:02 IMPRESSION: Chronic involutional changes of the brain. Electronically Signed: Billy Heath MD at 14:55 EDT , Chest X-Ray 04/23/22 14:02 IMPRESSION: No acute abnormality is seen. Electronically Signed: Billy Heath MD at 14:49 EDT , Discharge Plan Triage Chief Complaint: Headache ED Provider: Tommie Valera Dx/Rx/DC Orders Instructions: ED Diabetic Hyperglycemia, ED Headache Unspecified, ED Hypertension, Established, ED CYSTITIS Female Adult Prescriptions: New cephalexin 500 mg capsule 500 mg PO Q12 Qty: 14 0RF Primary Care Provider: Tera Butts Referrals: Tera Butts MD [Primary Care Provider] - Disposition Disposition: Home, Self Care
[2022-04-23] MEDS: 0.9% Normal Saline 1,000 ML 1000 ML IV (14:13)
[2022-04-23] MEDS: DiphenhydrAMINE 50 MG/ML Syringe 25 MG IV (14:14)
[2022-04-23] MEDS: Metoclopramide 10 MG/2 ML Vial IV (14:14)
[2022-04-23] MEDS: Labetalol (Prefilled) 20 MG/4 ML IV (14:14)
[2022-04-23 14:22] LABS: Absolute Lymphocyte Count 2.96 X10^3/uL (0.83-4.51); Absolute Neutrophil Count 10.6 X10^3/uL (2.0-7.7); Basophil# 0.09 X10^3/uL; Basophil% 0.6 % (0-1); Eosinophil# 0.13 X10^3/uL; Eosinophils% 0.9 % (0-5); Hematocrit 43.2 % (37-47); Hemoglobin 14.4 g/dL (12.0-15.0); Lymphocyte # 2.96 X10^3/ul (0.83-4.51); Lymphocyte % 20.2 % (19-41); Mean Corp Hgb Conc 33.3 g/dL (32-36); Mean Corpuscular Hgb 28.2 pg (27.0-32.0); Mean Corpuscular Volume 84.5 fL (81-99); Monocyte% 4.8 % (0-10); NRBC Flagged by Analyzer 0 % (0-5); Neutrophil # 10.61 X10^3/uL (2.7-7.7); Neutrophil % 72.6 % (47-70); Platelet Count 289 K/mm3 (150-450); RBC Distribution Width CV 13.7 % (11.6-14.6); RBC Distribution Width SD 42.7 fl (35.1-43.9); Red Blood Count 5.11 M/mm3 (4.2-5.4); White Blood Count 14.6 K/mm3 (4.4-11.0)
--- NOTE | 2022-04-23 14:33 | CM.ED ---
Addendum entered by Pham Bae 04/23/22 15:11: SW back in to speak with pt. Pt states that her Blood Pressure an Blood Sugars are high. Pt states that her gives her her medications. Pt decided today she didn't want to take them. SW asked pt if she didn't take her medications because she wanted to hurt herself and pt states no. SW asked pt why she didn't take her medications then and pt states because I didn't want to. Pt states she has 12 or 13 medications to take everyday and they are a lot. SW spoke with pt about how it is important to take her medications as prescribed. SW asked pt if she thinks that she is at [facility] with high Blood Pressure and Sugar because she missed her medications and pt states yeah. SW spoke with pt about how she feels and pt states she doesn't feel good. SW spoke with pt about how if she would've taken her medications, it may have helped her to feel better. Pt states that she lives with her and a friend. Pt states that her assists with ADLs and that she doesn't regularly bathe or shower. Pt states that her helps with her medications and gives the medications to her, she just doens't take them sometimes. SW noticed that pt's fingernails are very long and dirty. Pt states that a nurse from [facility] comes out to see her once a week. SW asked pt if anyone helps with cooking, cleaning, or bathing and pt states no. SW asked pt if this worker could talk to [facility] about seeing if they could get aides in the home and pt agreeable. SW also spoke with pt about Assisted Livings and nursing homes. Pt states that she has not thought about that. SW informed pt that this worker will also provide her with list of at least Assisted Livings so pt can have the information. Pt states understanding. SW also spoke [facility] pt about [facility], pt agreeable to referral being made to [facility]. Pt states that she has three children, 2 boys and 1 girl, but one her son's just committed suicide about two weeks ago. Pt states that her son was living with his girlfriend. SW offered support to pt. Pt states that she spoke to her PCP about this, states she was not prescribed any medication. SW offered to provide pt with Grief/Counseling resources and pt denied. Pt states that she has no Mental Health History and denied any feelings of hopelessness, worthlessness, uselessness. Pt states no current thoughts or plans to harm self or others. SW informed pt that this worker will check with [facility] to inquire what service they are providing and if they are not providing aide services, see if they can add aide services on. SW also informed pt that that this worker will make a [facility] Referral and also provide her with Assisted Living and Third Loader list. Pt states understanding. LUIS ARMANDO still waiting for response from Pat with [facility] on Backline. LUIS ARMANDO did go ahead and call Pat. Pat states that pt only has SN services and they were set to discharge next visit. LUIS ARMANDO informed Pat that pt is back at [facility] ED and SW requested [facility] aide. Pat states that pt will need a resumption order to resume SN services and then to put on the order add aide services. Pat states that their [facility] aide only goes out once every 2 weeks to give baths and LUIS ARMANDO informed Pat that that is what pt needs. Pat states to let her know when pt discharges and she will speak with Mauricio to see if they can see her sooner than the next scheduled visit. Original Note: Social Work Note MD Valera updated this worker that pt stated she was not taking her medications and she didn't care. Pt is not suicidal or homicidal. Pt's blood pressure is elevated. Pt then stated later that she does take her medications and her gives them to her. LUIS ARMANDO reviewed chart, pt was in [facility] ED, and LUIS ARMANDO had made a referral to [facility], [facility], and [facility]. Pt's daughter's were present at that time and their names are Lalitha Gorman ([phone]) and Brigitte Doyle ([phone]). LUIS ARMANDO messaged Pat with [facility] and inquired if they are still active with pt. SW in to speak with pt. Pt hard to understand. Pt does state that she is not doing well. SW tried to ask pt what is going on and pt with hard to understand speech. Pt does state that she lives with her and a friend. LUIS ARMANDO asked pt if she is still taking her medications and pt states she is but then states they were stopped today. LUIS ARMANDO tried to ask pt who stopped the medications and then [facility] staffed walked in to take pt to imaging. SW informed pt that this worker will follow back up with her when she returns to ED. Pham Bae SPORTS COORDINATOR, SKIP MINER BLASTING
[2022-04-23 14:37] LABS: ALB/GLOB Ratio 0.7 RATIO (0.9-2.4); AST(SGOT) 11 U/L (15-37); Alanine Aminotransfer ALT/SGPT 14 U/L (13-56); Albumin, Serum 2.7 g/dL (3.2-5.0); Alkaline Phosphatase 135 U/L (45-117); Anion Gap 7 (5-15); BUN 27 mg/dL (7-18); BUN/Creat Ratio 16.9 RATIO (10-20); Calcium,Total 9.2 mg/dL (8.5-10.1); Chloride 98 mmol/L (98-107); EST Glomerular Filtration Rate 34 mL/min (>60); Est Glom Filt Rate - Afr Amer 41 mL/min (>60); Estimated Creatinine Clearance 24.17 ml/min; Globulin 3.9 g/dL (2.2-4.2); Glucose 440 mg/dL (74-106); Potassium 3.7 mmol/L (3.5-5.1); Protein, Total 6.6 g/dL (6.4-8.2); Sodium Level 134 mmol/L (136-145); Troponin-I HS 48 pg/mL (3.0-54.0)
[2022-04-23 15:00] LABS: Bacteria 0 SEEN /hpf (None Seen); Mucous, Urine 0 SEEN /hpf (<or=2+); Red Blood Cells-Urine 0 SEEN /hpf (0-5); Squamous Epithelial Cells - UA 0 SEEN /hpf (5-10)
[2022-04-23 15:03] LABS: Color, Urine Yellow (Yellow); Glucose, Dipstick 1000 mg/dl (Normal); Ketone-Dipstick Negative (Negative); Leukocyte Esterase-Dipstick 500 /ul (Negative); Nitrite-Dipstick Positive (Negative); Occult Blood-Urine 250 /ul (Negative); Protein-Dipstick 500 mg/dl (Negative); Urine Bilirubin Dipstick Negative (Negative); Urine Clarity Cloudy (Clear); Urine Urobilinogen Normal (Normal)
[2022-04-23 15:08] VITALS: BP 158/107; PULSE 70; RESP 16; O2SAT 92
[2022-04-23 15:10] LABS: White Blood Cells >100 SEEN /hpf (0-5)
[2022-04-23] MEDS: Ceftriaxone 1 GM/50 ML BAG IV (15:24)
[2022-04-23 15:55] VITALS: BP 168/94; PULSE 67; RESP 18; O2SAT 95
--- NOTE | 2022-04-23 16:03 | CM.ED ---
Addendum entered by Pham Bae 04/23/22 17:16: SW faxed referral to [facility]. SW placed a call to Erlinda at [facility] and left message regarding [facility] referral Addendum entered by Pham Bae 04/23/22 16:37: Pt did give permission for her to be contacted regarding [facility] Referral. Original Note: Social Work Note SW updated Soto that this worker called [facility] and pt only has SN services, no aides. SW informed MD that order can be placed to add aide services. MD agreeable if pt goes home. SW also informed MD that this worker will be making a direction home referral and [facility] referral. SW in to speak with pt. SW provided pt with resources including [facility], Assisted Livings, [facility], Private Duty list, [facility] [employer]chure and Medical Alert companies. SW to continue to follow. Pham Bae PARTS SALES MANAGER, MUSIC VIDEO PRODUCER
[2022-04-23 17:00] VITALS: BP 169/107; PULSE 67; RESP 15; O2SAT 93
--- NOTE | 2022-04-23 17:56 | CM.ED ---
Social Work Note SW updated that pt is going to discharge home tonight. Order placed for resumption of senior living and add aide services placed for [facility]. SW in to speak with pt. SW updated pt that this worker asked [facility] to add aide services and that this worker also made referral to [facility]. Pt states understanding. Pt again denied any current thoughts to harm self or others. SW placed a call to Erlinda at [facility] and left message updating her that pt discharged home. Plan: Home, with resumption of alf services and add aide services. [facility] Referral made. [facility] referral made. Pham Bae EGG BREAKER, SOUP MIXER
[2022-04-23] MEDS: Insulin Lispro 100 UNIT/ML INSULN.PEN 10 UNIT SC (17:58)
[2022-04-23 18:07] LABS: Bedside Glucose 284 mg/dL (74-106)
--- NOTE | 2022-04-23 18:35 | ED.RN ---
NOTIFIED PT'S THAT PT HAS BEEN D/C'D AND IS READY FOR OCCUPATIONAL THERAPY ASSIST. STATES HE IS AT WORK AND WILL NOTIFY GRANDSON TO GET PT-STATES GRANDSON SHOULD BE ON HIS WAY TO THE HOSPITAL ANYWAY. PT REQUESTING TO WAIT IN WHEELCHAIR BY DOORS. PT ESCORTED OUT VIA WC.
--- NOTE | 2022-04-24 14:25 | CM.ED ---
SW received voice mail message from [facility] at [facility] in reference to Carmen Dale. [facility] said that patient is in the process of enrolling so no further action is needed. [employer]'s phone number is [phone] Belinda KUMARI
--- NOTE | 2022-04-24 15:19 | CM.ED ---
LUIS ARMANDO received voice mail from Darcie at [facility]. Darcie inquired about patient's address. LUIS ARMANDO called Darcie at [facility] [phone] and left voice mail with patient's address and contact phone number. Belinda KUMARI
== END 2022-04-23 18:37 | disposition home or self-care (01) ==
PROVIDERS: Emergency Provider Student in an Organized Health Care Education/Training Program; PCP Internal Medicine; Visit Provider Student in an Organized Health Care Education/Training Program
DX: N39.0 Urinary tract infection, site not specified (principal); J44.9 Chronic obstructive pulmonary disease, unspecified; E11.22 Type 2 diabetes mellitus with diabetic chronic kidney disease; E11.65 Type 2 diabetes mellitus with hyperglycemia; N18.30 Chronic kidney disease, stage 3 unspecified; I12.9 Hypertensive chronic kidney disease with stage 1 through stage 4 chronic kidney disease, or unspecified chronic kidney disease; F17.210 Nicotine dependence, cigarettes, uncomplicated; Z91.19 Patient's noncompliance with other medical treatment and regimen
CPT/HCPCS: 70450; 71045; 80053; 81001; 82009; 82962; 84484; 85025; 87086; 87088; 87186; 93005; 96361; 96365; 96375; 99285; J7030; P9612; A4216

== ENCOUNTER 2022-04-28 08:01 | Emergency (ER) | payer BC, SELFPAY ==
[2022-04-28 08:02] VITALS: BP 115/70; PULSE 63; RESP 14; TEMP 35.5; O2SAT 92; BMI 24.8
--- NOTE | 2022-04-28 08:28 | EX.ED.DYSGE1 ---
HPI History of Present Illness Chief Complaint: Hypoglycemia Informant: patient and spouse/S.O. Onset/Context/Timing Onset: Yesterday Context: Sudden Onset Timing: Intermittent Quality: Weakness, altered mental status Location: Generalized Worsened by: Nothing Relieved by: Food Narrative Narrative: Patient presents with hyperglycemia that has been intermittent since yesterday. EMS was called today for altered mental status. On their arrival, patient's blood sugar was noted to be 32. EMS administered glucagon. Patient's blood sugar improved. Patient is now more awake and alert. Patient had a similar episode yesterday where her blood sugar dropped below 70. Family states this improved after eating. Patient denies any chest pain or shortness of breath. Patient denies any nausea or vomiting. Patient denies any fevers or chills. PFSH [facility], [facility] Medical History Arthritis Asthma Breast cancer Carpal tunnel syndrome CKD (chronic kidney disease) stage 3, GFR 30-59 ml/min Constipation COPD (chronic obstructive pulmonary disease) CVA (cerebral vascular accident) Diabetes Flu vaccine need Former smoker Hearing problem High blood pressure Hypertension Hypothyroidism Noncompliance Noncompliance w/medication treatment due to intermit use of medication Right hip pain Right knee pain Sleep apnea Thyroid disease Tobacco abuse Type 2 diabetes mellitus Vertigo Vision problems Home Medications cephalexin 500 mg capsule 500 mg PO Q12 #14 caps 04/23/22 [Rx Last Taken Unknown] Allergy/AdvReac Type Severity Reaction Status Date / Time aspirin Allergy Unknown Nausea Verified 04/28/22 08:07 albuterol AdvReac I GET VERY Verified 04/28/22 08:07 SHAKEY/HYPERVENTILATING Penicillins AdvReac Nausea/Vom/ Verified 04/28/22 08:07 Diarrhea Family History Father Cancer bone cancer Brother Heart disease Surgical History H/O mastectomy History of appendectomy History of section Social History household members: spouse Smoking Status: Current every day smoker tobacco type: cigarettes Tobacco: How many years used: 50 alcohol intake: never substance use type: marijuana and other details: smokes 4 joints a day ROS ROS ED Constitutional Constitutional ED: Denies chills or fever(s) Eyes Eyes: Denies blurry vision or change in vision ENT ENT ED: Denies rhinorrhea or sore throat Cardiovascular Cardiovascular: Denies chest pain or palpitations Respiratory/Chest Respiratory/Chest: Denies cough or dyspnea Gastrointestinal Gastrointestinal: Denies nausea or vomiting Genitourinary Genitourinary ED: Denies dysuria or hematuria Musculoskeletal Musculoskeletal: Denies back pain or neck pain Integumentary Denies abscess or rash Neurologic Neurologic: Denies headache(s) or weakness Allergic/Immunologic Allergic/Immunologic ED: Denies mouth swelling or urticaria EXAM Physical Exam Const Vital Signs: 04/28/22 08:02 04/28/22 08:09 04/28/22 10:51 Temperature 95.9 F L Temperature Source Temporal Pulse Rate 63 65 Respiratory Rate 14 14 Respiratory Effort Normal Non-Labored Respiratory Pattern Normal Blood Pressure 115/70 97/61 Blood Pressure Mean 85 73 Pulse Ox 92 96 Oxygen Delivery Method Room Air Room Air 04/28/22 11:24 Temperature Temperature Source Pulse Rate 70 Respiratory Rate 14 Respiratory Effort Respiratory Pattern Blood Pressure 94/68 Blood Pressure Mean 76 Pulse Ox 96 Oxygen Delivery Method Positive well nourished and well developed General Appearance ED: well developed HEENT Reports moist mucous membranes Neck supple and no JVD Resp normal respiratory effort and clear to auscultation bilaterally Cardio regular rate, regular rhythm and no murmurs GI normal to inspection, nondistended, normoactive bowel sounds and non-tender Palpation: soft Extremity normal to inspection General Extremety ED: Negative for edema or tenderness General Extremity: Negative for edema Neuro oriented x3, CN's II-XII intact bilaterally and no sensory deficits noted Sensorium / Orientation: alert Motor Exam: strength 5/5 throughout Psych mental status grossly normal Skin no rashes or lesions noted MDM MDM MDM Narrative Medical decision making narrative: Patient was given a regular diet tray. CBC shows a leukocytosis of 14.7. This is consistent with prior results. Comprehensive metabolic profile showed a slightly elevated creatinine of 1.58 and a BUN of 35. These are also consistent with prior results. Glucose was 45. However, this was drawn prior to patient eating anything. Urinalysis was obtained. There is no evidence of hematuria or urinary tract infection. Repeat BGT was 167. Patient is feeling better on reevaluation. Patient was instructed to eat a regular diet. Patient was instructed to follow-up with her primary care physician in 3 to 5 days. Patient was instructed to keep a log of her blood sugars. Patient was instructed to take this with her to her primary care physician. Patient and family understood and were agreeable with the plan. All questions were answered. Lab Data Attestation: I reviewed the patient's lab results. Labs: Laboratory Results - last 24 hr 04/28/22 04/28/22 04/28/22 08:12 08:12 09:06 WBC 14.7 H RBC 4.49 Hgb 12.9 Hct 39.2 MCV 87.3 MCH 28.7 MCHC 32.9 RDW Std Deviation 47.0 H RDW Coeff of Chad 14.7 H Plt Count 280 MPV 11.1 Immature Gran % (Auto) 0.800 Neut % (Auto) 69.0 Lymph % (Auto) 23.4 Spencer % (Auto) 5.1 Eos % (Auto) 1.2 Baso % (Auto) 0.5 Absolute Neuts (auto) 10.1 H Absolute Lymphs (auto) 3.44 Nucleated RBC % 0 Sodium 137 Potassium 3.7 Chloride 106 Carbon Dioxide 26.0 Anion Gap 5 BUN 35 H Creatinine 1.58 H Estim Creat Clear Calc 24.48 Est GFR (MDRD) Af Amer 42 L Est GFR (MDRD) Non-Af 35 L BUN/Creatinine Ratio 22.2 H Glucose 45 L Calcium 8.9 Total Bilirubin 0.30 AST 26 ALT 19 Alkaline Phosphatase 111 Total Protein 5.6 L Albumin 2.4 L Globulin 3.2 Albumin/Globulin Ratio 0.8 L Urine Color Urine Clarity Urine pH Ur Specific [place] Urine Protein Urine Glucose (UA) Urine Ketones Urine Occult Blood Urine Nitrite Urine Bilirubin Urine Urobilinogen Ur Leukocyte Esterase Urine RBC Urine WBC Ur Squamous Epith Cells Urine Bacteria Urine Mucus POC Glucose 148 H 04/28/22 10:28 WBC RBC Hgb Hct MCV MCH MCHC RDW Std Deviation RDW Coeff of Chad Plt Count MPV Immature Gran % (Auto) Neut % (Auto) Lymph % (Auto) Spencer % (Auto) Eos % (Auto) Baso % (Auto) Absolute Neuts (auto) Absolute Lymphs (auto) Nucleated RBC % Sodium Potassium Chloride Carbon Dioxide Anion Gap BUN Creatinine Estim Creat Clear Calc Est GFR (MDRD) Af Amer Est GFR (MDRD) Non-Af BUN/Creatinine Ratio Glucose Calcium Total Bilirubin AST ALT Alkaline Phosphatase Total Protein Albumin Globulin Albumin/Globulin Ratio Urine Color Yellow Urine Clarity Clear Urine pH 5.0 Ur Specific [place] 1.020 Urine Protein 100 H Urine Glucose (UA) Normal Urine Ketones Negative Urine Occult Blood Negative Urine Nitrite Negative Urine Bilirubin Negative Urine Urobilinogen Normal Ur Leukocyte Esterase 25 H Urine RBC 0 SEEN Urine WBC 0-5 SEEN Ur Squamous Epith Cells 0 SEEN Urine Bacteria 0 SEEN Urine Mucus 0 SEEN POC Glucose Discharge Plan Triage Chief Complaint: Hypoglycemia ED Provider: Howard Levy Dx/Rx/DC Orders Clinical Impression: Hypoglycemia, Diabetes mellitus, Tobacco abuse Instructions: ED Hypoglycemia Oral Diabetic ... Prescriptions: No Action cephalexin 500 mg capsule 500 mg PO Q12 Qty: 14 0RF Primary Care Provider: Tera Butts Referrals: Tera Butts MD [Primary Care Provider] - 3-5 Days Disposition Disposition: Home, Self Care
[2022-04-28 08:38] LABS: Absolute Lymphocyte Count 3.44 X10^3/uL (0.83-4.51); Absolute Neutrophil Count 10.1 X10^3/uL (2.0-7.7); Basophil# 0.08 X10^3/uL; Basophil% 0.5 % (0-1); Eosinophil# 0.18 X10^3/uL; Eosinophils% 1.2 % (0-5); Hematocrit 39.2 % (37-47); Hemoglobin 12.9 g/dL (12.0-15.0); Lymphocyte # 3.44 X10^3/ul (0.83-4.51); Lymphocyte % 23.4 % (19-41); Mean Corp Hgb Conc 32.9 g/dL (32-36); Mean Corpuscular Hgb 28.7 pg (27.0-32.0); Mean Corpuscular Volume 87.3 fL (81-99); Mean Platelet Vol. 11.1 fl (6.2-12.0); Monocyte# 0.75 X10^3/uL; Monocyte% 5.1 % (0-10); NRBC Flagged by Analyzer 0 % (0-5); Neutrophil # 10.12 X10^3/uL (2.7-7.7); Platelet Count 280 K/mm3 (150-450); RBC Distribution Width CV 14.7 % (11.6-14.6); Red Blood Count 4.49 M/mm3 (4.2-5.4); White Blood Count 14.7 K/mm3 (4.4-11.0)
[2022-04-28 09:02] LABS: ALB/GLOB Ratio 0.8 RATIO (0.9-2.4); AST(SGOT) 26 U/L (15-37); Alanine Aminotransfer ALT/SGPT 19 U/L (13-56); Albumin, Serum 2.4 g/dL (3.2-5.0); Alkaline Phosphatase 111 U/L (45-117); Anion Gap 5 (5-15); BUN 35 mg/dL (7-18); BUN/Creat Ratio 22.2 RATIO (10-20); Calcium,Total 8.9 mg/dL (8.5-10.1); Chloride 106 mmol/L (98-107); Creatinine, Serum 1.58 mg/dL (0.55-1.02); EST Glomerular Filtration Rate 35 mL/min (>60); Est Glom Filt Rate - Afr Amer 42 mL/min (>60); Estimated Creatinine Clearance 24.48 ml/min; Globulin 3.2 g/dL (2.2-4.2); Glucose 45 mg/dL (74-106); Potassium 3.7 mmol/L (3.5-5.1); Protein, Total 5.6 g/dL (6.4-8.2); Sodium Level 137 mmol/L (136-145)
[2022-04-28 09:26] LABS: Bedside Glucose 148 mg/dL (74-106)
[2022-04-28 10:34] LABS: Bacteria 0 SEEN /hpf (None Seen); Mucous, Urine 0 SEEN /hpf (<or=2+); Red Blood Cells-Urine 0 SEEN /hpf (0-5); Squamous Epithelial Cells - UA 0 SEEN /hpf (5-10)
[2022-04-28 10:40] LABS: Color, Urine Yellow (Yellow); Glucose, Dipstick Normal (Normal); Ketone-Dipstick Negative (Negative); Leukocyte Esterase-Dipstick 25 /ul (Negative); Nitrite-Dipstick Negative (Negative); Occult Blood-Urine Negative /ul (Negative); Protein-Dipstick 100 mg/dl (Negative); Urine Bilirubin Dipstick Negative (Negative); Urine Clarity Clear (Clear); Urine Urobilinogen Normal (Normal)
[2022-04-28 10:47] LABS: White Blood Cells 0-5 SEEN /hpf (0-5)
[2022-04-28 10:51] VITALS: BP 97/61; PULSE 65; RESP 14; O2SAT 96
[2022-04-28 11:24] VITALS: BP 94/68; PULSE 70; RESP 14; O2SAT 96
[2022-04-28 11:40] LABS: Bedside Glucose 167 mg/dL (74-106)
[2022-04-28 12:11] VITALS: RESP 18
[2022-04-29 07:54] LABS: Bedside Glucose 70 mg/dL (74-106)
== END 2022-04-28 12:11 | disposition home or self-care (01) ==
PROVIDERS: Emergency Provider Emergency Medicine; PCP Internal Medicine; Visit Provider Emergency Medicine
DX: E11.649 Type 2 diabetes mellitus with hypoglycemia without coma (principal); J44.9 Chronic obstructive pulmonary disease, unspecified; E11.22 Type 2 diabetes mellitus with diabetic chronic kidney disease; N18.30 Chronic kidney disease, stage 3 unspecified; F12.90 Cannabis use, unspecified, uncomplicated; I12.9 Hypertensive chronic kidney disease with stage 1 through stage 4 chronic kidney disease, or unspecified chronic kidney disease; Z72.0 Tobacco use; Z85.3 Personal history of malignant neoplasm of breast; Z86.73 Personal history of transient ischemic attack (TIA), and cerebral infarction without residual deficits
CPT/HCPCS: 80053; 81001; 82962; 85025; 99284; A4216

== ENCOUNTER 2022-04-29 00:03 | Observation (INO) | payer BC, SELFPAY ==
[2022-04-29] VITALS (10 sets, daily range): BP systolic 92–150; BP diastolic 61–90; PULSE 60–78; RESP 13–18; TEMP 36.3–36.8; O2SAT 91–98; BMI 26.5; BMI 25.8
[2022-04-29] MEDS: Dextrose 50%-Water 25 GM/50 ML DISP.SYRIN IV ×2 (00:20→06:01)
--- NOTE | 2022-04-29 00:20 | RAD_ITS ---
STUDY: X-RAY CHEST REASON FOR EXAM: Female, 67 years old. Pain after fall TECHNIQUE: 1 view COMPARISON: 04/23/2022 FINDINGS: Cardiomediastinal silhouette is unremarkable. Costophrenic angles are sharp. Lungs are clear. The trachea is midline. There is no pneumothorax. Surgical clips in the left axilla. The bones are grossly intact. RAD/Chest 1 View (Portable) IMPRESSION: No acute cardiopulmonary process. Electronically Signed: Raz Rivero MD at 1:20 EDT ,
--- NOTE | 2022-04-29 00:20 | RAD_ITS ---
INDICATION: fall EXAMINATION/TECHNIQUE: X-RAY - RIGHT XR Hip Unilateral with Pelvis when performed; 2-3 Views 3 VIEWS COMPARISON: 03/23/2022. FINDINGS: SOFT TISSUES: No soft tissue swelling or gas. No radiopaque foreign body. BONES/JOINTS: Status post intramedullary marisabel and dynamic hip screw placement in the right femur. Heterotopic ossification superior to the right femur. Mildly displaced fracture of the right lesser trochanter, similar compared to the prior. Normal alignment. Preservation of the joint space.. No sclerotic or destructive changes observed. RAD/HIP, UNI W/ Pelvis 2-3 Views IMPRESSION: Mildly displaced fracture of the right lesser trochanter and right femoral intramedullary marisabel and dynamic hip screw placement, similar compared to the prior. Electronically Signed: Merlin Farmer MD at 1:11 EDT ,
--- NOTE | 2022-04-29 00:20 | CT_ITS ---
STUDY: CT CERVICAL SPINE WITHOUT CONTRAST REASON FOR EXAM: Female, 67 years old. Pain after fall RADIATION DOSAGE (If Supplied By Facility): CTDIvol = ( 16.79 ) mGy, DLP = ( 330.20 ) mGycm TECHNIQUE: High resolution transaxial imaging was performed without contrast material. Sagittal and coronal images were reconstructed. Individualized dose optimization techniques were used for this CT. COMPARISON: None FINDINGS: There is no acute fracture or subluxation in the cervical spine. Loss of normal cervical lordosis is noted. Multilevel cervical spondylosis is seen. The bones are somewhat osteopenic. Prevertebral soft tissues are unremarkable. Vascular calcification is seen there is no apical pneumothorax. CT/Spine Cervical without Contras IMPRESSION: No acute fracture or subluxation in the cervical spine. Electronically Signed: Raz Rivero MD at 2:03 EDT ,
--- NOTE | 2022-04-29 00:20 | CT_ITS ---
STUDY: CT BRAIN WITHOUT CONTRAST REASON FOR EXAM: Female, 67 years old. Pain after fall RADIATION DOSAGE (If Supplied By Facility): CTDIvol = ( 44.99 ) mGy, DLP = ( 796.11 ) mGycm TECHNIQUE: Transaxial CT imaging of the brain was performed without administration of intravenous contrast material. Individualized dose optimization techniques were used for this CT. COMPARISON: No relevant priors. FINDINGS: There is no intra-/extra-axial fluid collection, mass effect, or midline shift. Old lacunar infarcts are noted in the bilateral basal ganglia. The merida/white matter junction is preserved. Hypoattenuation of periventricular and subcortical white matter suggestive of chronic small vessel ischemic disease. Mild diffuse parenchymal volume loss is noted. There is vascular calcification. The basal cisterns are patent. Visualized paranasal sinuses are clear. Partial opacification of the bilateral mastoid air cells is seen. The calvarium is intact. CT/Brain/Head without Contrast IMPRESSION: No acute intracranial finding. Electronically Signed: Raz Rivero MD at 1:51 EDT ,
--- NOTE | 2022-04-29 00:21 | EX.ED.DYSGE1 ---
HPI History of Present Illness Chief Complaint: Hypoglycemia Detail of Chief Complaint: Fall Informant: patient and EMS Narrative Narrative: Patient reportedly fell injuring her right hip. EMS noted her blood sugar to be low at 43. She was not tolerating oral glucose and they could not establish an IV. At the time of my exam blood sugars being checked and is 29. IV has been established and an amp of D50 has been ordered. Patient is somewhat slow to answer questions but is able to answer appropriately. She complains of pain in her left arm where the IV was started. She also complains of pain in her right hip. [facility] Medical History Arthritis Asthma Breast cancer Carpal tunnel syndrome CKD (chronic kidney disease) stage 3, GFR 30-59 ml/min Constipation COPD (chronic obstructive pulmonary disease) CVA (cerebral vascular accident) Diabetes Flu vaccine need Former smoker Hearing problem High blood pressure Hypertension Hypothyroidism Noncompliance Noncompliance w/medication treatment due to intermit use of medication Right hip pain Right knee pain Sleep apnea Thyroid disease Tobacco abuse Type 2 diabetes mellitus Vertigo Vision problems Home Medications amlodipine 10 mg tablet 1 tab PO DAILY blood pressure 04/29/22 [History Last Taken Unknown] anastrozole 1 mg tablet 1 tab PO DAILY chemo 04/29/22 [History Last Taken Unknown] calcium 600 mg capsule 600 mg PO DAILY supplement 04/29/22 [History Last Taken Unknown] carvedilol 12.5 mg tablet 1 tab PO DAILY blood pressure 04/29/22 [History Last Taken Unknown] cephalexin 500 mg capsule 500 mg PO Q12H antibiotic 04/29/22 [History Last Taken Unknown] cholecalciferol (vitamin D3) 50 mcg (2,000 unit) tablet 1 tab PO DAILY supplement 04/29/22 [History Last Taken Unknown] citalopram 10 mg tablet 1 tab PO DAILY depression 04/29/22 [History Last Taken Unknown] clopidogrel 75 mg tablet 1 tab PO DAILY antiplatelet 04/29/22 [History Last Taken Unknown] doxazosin 2 mg tablet 1 tab PO DAILY urinary 04/29/22 [History Last Taken Unknown] levothyroxine 100 mcg tablet 1 tab PO DAILY thyroid 04/29/22 [History Last Taken Unknown] lisinopril 10 mg tablet 3 tab PO DAILY blood pressure 04/29/22 [History Last Taken Unknown] metformin 500 mg tablet 1 tab PO DAILY diabetes 04/29/22 [History Last Taken Unknown] potassium chloride 10 mEq tablet,extended release 10 meq PO DAILY supplement 04/29/22 [History Last Taken Unknown] Allergy/AdvReac Type Severity Reaction Status Date / Time aspirin Allergy Unknown Nausea Verified 04/28/22 08:07 albuterol AdvReac I GET VERY Verified 04/28/22 08:07 SHAKEY/HYPERVENTILATING Penicillins AdvReac Nausea/Vom/ Verified 04/28/22 08:07 Diarrhea Family History Father Cancer bone cancer Brother Heart disease Surgical History H/O mastectomy History of appendectomy History of section Social History household members: spouse Smoking Status: Current every day smoker tobacco type: cigarettes Tobacco: How many years used: 50 alcohol intake: never substance use type: marijuana and other details: smokes 4 joints a day ROS ROS ED Constitutional Constitutional ED: Denies chills or fever(s) Eyes Eyes: Denies change in vision or discharge from eye(s) ENT ENT ED: Denies discharge from eye(s), rhinorrhea or sore throat Cardiovascular Cardiovascular: Denies chest pain or palpitations Respiratory/Chest Respiratory/Chest: Denies cough or dyspnea Gastrointestinal Gastrointestinal: Denies abdominal pain, diarrhea, nausea or vomiting Genitourinary Genitourinary ED: Denies dysuria Musculoskeletal Musculoskeletal: Reports extremity pain; Denies back pain Integumentary Denies Abrasions or rash Neurologic Neurologic: Denies headache(s) or weakness Allergic/Immunologic Allergic/Immunologic ED: Denies lip swelling or urticaria EXAM Physical Exam Const Vital Signs: 04/29/22 00:06 04/29/22 00:42 04/29/22 01:06 Temperature 98.1 F Temperature Source Oral Pulse Rate 75 75 Respiratory Rate 13 13 Respiratory Effort Normal Non-Labored Respiratory Pattern Normal Blood Pressure 143/90 H 120/84 H Blood Pressure Mean 107 96 Pulse Ox 96 91 Oxygen Delivery Method Room Air Room Air Positive well nourished and well developed General Appearance ED: well developed HEENT Reports dry mucous membranes Mouth ED: Yes dry mucous membranes Mouth: dry mucous membranes Eyes EOMs intact bilaterally Neck no lymphadenopathy Chest Wall inspection of chest normal and palpation of chest normal Resp normal respiratory effort and clear to auscultation bilaterally Cardio regular rate and regular rhythm GI non-tender Palpation: soft Extremity Extremity Narrative: Equal leg lengths noted bilaterally. Mild tenderness to the right hip. Neuro Neuro Narrative: Patient alert and answers questions appropriately. MDM MDM MDM Narrative Medical decision making narrative: Patient's blood sugar was 29 when IV line was established. She was given an amp of D50. Blood sugars were rechecked frequently and remained in the 150 range. Patient sent for CT scan of the head and neck. Chest x-ray and pelvis/right hip x-rays obtained. Lab work and urinalysis ordered. Lab Data Attestation: I reviewed the patient's lab results. Labs: Laboratory Results - last 24 hr 04/29/22 04/29/22 04/29/22 00:17 00:25 00:25 WBC 16.3 H RBC 4.58 Hgb 12.8 Hct 40.4 MCV 88.2 MCH 27.9 MCHC 31.7 L RDW Std Deviation 47.5 H RDW Coeff of Chad 14.7 H Plt Count 308 MPV 11.2 Immature Gran % (Auto) 0.900 Neut % (Auto) 66.5 Lymph % (Auto) 26.3 [place] % (Auto) 4.8 Eos % (Auto) 0.9 Baso % (Auto) 0.6 Absolute Neuts (auto) 10.9 H Absolute Lymphs (auto) 4.28 Nucleated RBC % 0 Sodium 137 Potassium 3.7 Chloride 104 Carbon Dioxide 26.0 Anion Gap 7 BUN 40 H Creatinine 1.67 H Estim Creat Clear Calc 23.16 Est GFR (MDRD) Af Amer 39 L Est GFR (MDRD) Non-Af 32 L BUN/Creatinine Ratio 24.0 H Glucose 34 L* Calcium 9.2 Total Bilirubin 0.30 Direct Bilirubin 0.09 AST 24 ALT 20 Alkaline Phosphatase 122 H Total Protein 6.4 Albumin 2.8 L Globulin 3.6 Urine Color Urine Clarity Urine pH Ur Specific [place] Urine Protein Urine Glucose (UA) Urine Ketones Urine Occult Blood Urine Nitrite Urine Bilirubin Urine Urobilinogen Ur Leukocyte Esterase Urine RBC Urine WBC Ur Squamous Epith Cells Urine Bacteria Urine Mucus POC Glucose 29 L* 04/29/22 04/29/2222 00:36 01:07 01:50 WBC RBC Hgb Hct MCV MCH MCHC RDW Std Deviation RDW Coeff of Chad Plt Count MPV Immature Gran % (Auto) Neut % (Auto) Lymph % (Auto) [place] % (Auto) Eos % (Auto) Baso % (Auto) Absolute Neuts (auto) Absolute Lymphs (auto) Nucleated RBC % Sodium Potassium Chloride Carbon Dioxide Anion Gap BUN Creatinine Estim Creat Clear Calc Est GFR (MDRD) Af Amer Est GFR (MDRD) Non-Af BUN/Creatinine Ratio Glucose Calcium Total Bilirubin Direct Bilirubin AST ALT Alkaline Phosphatase Total Protein Albumin Globulin Urine Color Yellow Urine Clarity Clear Urine pH 5.0 Ur Specific [place] 1.025 Urine Protein 100 H Urine Glucose (UA) 50 H Urine Ketones 5 H Urine Occult Blood 10 H Urine Nitrite Negative Urine Bilirubin Negative Urine Urobilinogen Normal Ur Leukocyte Esterase Negative Urine RBC 0 SEEN Urine WBC 0 SEEN Ur Squamous Epith Cells 0 SEEN Urine Bacteria 0 SEEN Urine Mucus 0 SEEN POC Glucose 192 H 153 H Radiography Chest X-Ray - ED: 1 View, Read by ED Physician and Chronic Changes Diagnostic Testing: Clinical Impression(s) from Imaging Studies Brain CT 04/29/22 00:20 IMPRESSION: No acute intracranial finding. Electronically Signed: Raz Rivero MD at 1:51 EDT Reading Location ID and State: [facility] / [place] Tel , Service support , Cervical Spine CT 04/29/22 00:20 IMPRESSION: No acute fracture or subluxation in the cervical spine. Electronically Signed: Raz Rivero MD at 2:03 EDT Reading Location ID and State: [facility] / [place] Tel , Service support , Chest X-Ray 04/29/22 00:20 IMPRESSION: No acute cardiopulmonary process. Electronically Signed: Raz Rivero MD at 1:20 EDT Reading Location ID and State: [facility] / [place] Tel , Service support , Hip/Pelvis X-Ray 04/29/22 00:20 IMPRESSION: Mildly displaced fracture of the right lesser trochanter and right femoral intramedullary marisabel and dynamic hip screw placement, similar compared to the prior. Electronically Signed: Merlin Farmer MD at 1:11 EDT Reading Location ID and State: [address] [place] [address] Tel , Service support , Treatment and Re-Evaluation Narrative: Chest x-ray per my interpretation reveals chronic changes. Pelvis and right hip x-rays reveal hardware to be intact. Old fracture is noted and unchanged from prior. Radiology interpretation reviewed on all imaging. CT scan of the head and C-spine reveal no acute injury. CBC was a white count of 16.3. No left shift appreciated. Chemistry studies reveal creatinine of 1.67, similar to baseline. Blood sugar is 34, this was drawn prior to patient being given D50. Urinalysis reveals no acute infection. On repeat evaluation family is now at bedside. Patient has concerned that her is not able to appropriately care for her. She does feel that she will likely need rehab for strength building. She is very adamant that she does not want to go to a long-term, but is willing to go to rehab. I will speak with hospitalist regarding admission for physical therapy evaluation. Discharge Plan Triage Chief Complaint: Hypoglycemia ED Provider: Janeen Hoang Dx/Rx/DC Orders Clinical Impression: Hypoglycemia, Fall, Generalized weakness Prescriptions: No Action calcium 600 mg Capsule 600 mg PO DAILY metformin 500 mg tablet 1 tab PO DAILY Label Comments: TAKE 1 TABLET BY MOUTH TWICE DAILY WITH MEALS FOR DIABETES anastrozole 1 mg tablet 1 tab PO DAILY Label Comments: TAKE 1 TABLET BY MOUTH DAILY check with primary doctor carvedilol 12.5 mg tablet 1 tab PO DAILY Label Comments: TAKE 1 TABLET BY MOUTH EVERY 12 HOURS WITH FOOD. check with primary doctor citalopram 10 mg tablet 1 tab PO DAILY Label Comments: TAKE 1 TABLET DAILY potassium chloride 10 mEq Tablet Extended Release 10 meq PO DAILY clopidogrel 75 mg tablet 1 tab PO DAILY Label Comments: TAKE 1 TABLET BY MOUTH EVERY DAY for clot prevention levothyroxine 100 mcg tablet 1 tab PO DAILY amlodipine 10 mg tablet 1 tab PO DAILY Label Comments: TAKE 1 TABLET BY MOUTH DAILY FOR BLOOD PRESSURE lisinopril 10 mg tablet 3 tab PO DAILY Label Comments: TAKE 3 TABLETS BY MOUTH DAILY FOR 30 DAYS doxazosin 2 mg tablet 1 tab PO DAILY Label Comments: TAKE 1 TABLET BY MOUTH DAILY check with primary doctor cholecalciferol (vitamin D3) 50 mcg (2,000 unit) tablet 1 tab PO DAILY Label Comments: TAKE 1 TABLET BY MOUTH EVERY DAY for bones cephalexin 500 mg capsule 500 mg PO Q12H Rx Instructions: started 04/23 Primary Care Provider: Tera Butts Referrals: Tera Butts MD [Primary Care Provider] - Disposition Disposition: Acute Care Hospital [facility]
[2022-04-29 00:49] LABS: Absolute Lymphocyte Count 4.28 X10^3/uL (0.83-4.51); Absolute Neutrophil Count 10.9 X10^3/uL (2.0-7.7); Basophil# 0.09 X10^3/uL; Basophil% 0.6 % (0-1); Eosinophil# 0.14 X10^3/uL; Eosinophils% 0.9 % (0-5); Hematocrit 40.4 % (37-47); Hemoglobin 12.8 g/dL (12.0-15.0); Lymphocyte # 4.28 X10^3/ul (0.83-4.51); Lymphocyte % 26.3 % (19-41); Mean Corp Hgb Conc 31.7 g/dL (32-36); Mean Corpuscular Hgb 27.9 pg (27.0-32.0); Mean Corpuscular Volume 88.2 fL (81-99); Mean Platelet Vol. 11.2 fl (6.2-12.0); Monocyte# 0.79 X10^3/uL; Monocyte% 4.8 % (0-10); NRBC Flagged by Analyzer 0 % (0-5); Neutrophil # 10.85 X10^3/uL (2.7-7.7); Neutrophil % 66.5 % (47-70); Platelet Count 308 K/mm3 (150-450); RBC Distribution Width CV 14.7 % (11.6-14.6); RBC Distribution Width SD 47.5 fl (35.1-43.9); Red Blood Count 4.58 M/mm3 (4.2-5.4); White Blood Count 16.3 K/mm3 (4.4-11.0)
[2022-04-29 00:53] LABS: AST(SGOT) 24 U/L (15-37); Alanine Aminotransfer ALT/SGPT 20 U/L (13-56); Albumin, Serum 2.8 g/dL (3.2-5.0); Alkaline Phosphatase 122 U/L (45-117); Anion Gap 7 (5-15); BUN 40 mg/dL (7-18); Bilirubin, Direct 0.09 mg/dL (0.00-0.30); Calcium,Total 9.2 mg/dL (8.5-10.1); Chloride 104 mmol/L (98-107); Creatinine, Serum 1.67 mg/dL (0.55-1.02); EST Glomerular Filtration Rate 32 mL/min (>60); Est Glom Filt Rate - Afr Amer 39 mL/min (>60); Estimated Creatinine Clearance 23.16 ml/min; Globulin 3.6 g/dL (2.2-4.2); Potassium 3.7 mmol/L (3.5-5.1); Protein, Total 6.4 g/dL (6.4-8.2); Sodium Level 137 mmol/L (136-145)
[2022-04-29 00:55] LABS: Glucose 34 mg/dL (74-106)
[2022-04-29 00:56] LABS: Bedside Glucose 192 mg/dL (74-106)
[2022-04-29 00:56] LABS: Bedside Glucose 29 mg/dL (74-106)
[2022-04-29 01:25] LABS: Bedside Glucose 153 mg/dL (74-106)
[2022-04-29 01:54] LABS: Bacteria 0 SEEN /hpf (None Seen); Mucous, Urine 0 SEEN /hpf (<or=2+); Red Blood Cells-Urine 0 SEEN /hpf (0-5); Squamous Epithelial Cells - UA 0 SEEN /hpf (5-10); White Blood Cells 0 SEEN /hpf (0-5)
[2022-04-29 01:55] LABS: Glucose, Dipstick 50 mg/dl (Normal); Ketone-Dipstick 5 mg/dl (Negative); Leukocyte Esterase-Dipstick Negative /ul (Negative); Nitrite-Dipstick Negative (Negative); Occult Blood-Urine 10 /ul (Negative); Protein-Dipstick 100 mg/dl (Negative); Specific Gravity, Urine 1.025 (1.002-1.030); Urine Bilirubin Dipstick Negative (Negative); Urine Urobilinogen Normal (Normal)
[2022-04-29 01:58] LABS: Color, Urine Yellow (Yellow); Urine Clarity Clear (Clear)
--- NOTE | 2022-04-29 03:58 | HP.PCM.HOS_ITS ---
HPI - General General Date of Admission: 04/29/22 Date of Service: 04/29/22 Chief Complaint: Fall HPI Narrative MELODY HUGGINS, is a 67 F with a significant history of hypertension and CKD stage III who presents to the emergency department with a fall. In route to the emergency department patient blood glucose was 43. However she refused oral glucose via paramedics. When she got emergency department her blood glucose was 29. Blood glucose was corrected with dextrose. At baseline she uses a walker to walk. She report that she is too weak to walk and she has pain in her right hip. Patient's fall was In the past 24 hours patient has been at the emergency department 2 times for hypoglycemia. [facility] Medical History Arthritis Asthma Breast cancer Carpal tunnel syndrome CKD (chronic kidney disease) stage 3, GFR 30-59 ml/min Constipation COPD (chronic obstructive pulmonary disease) CVA (cerebral vascular accident) Diabetes Flu vaccine need Former smoker Hearing problem High blood pressure Hypertension Hypothyroidism Noncompliance Noncompliance w/medication treatment due to intermit use of medication Right hip pain Right knee pain Sleep apnea Thyroid disease Tobacco abuse Type 2 diabetes mellitus Vertigo Vision problems Home Medications amlodipine 10 mg tablet 1 tab PO DAILY blood pressure 04/29/22 [History Last Taken Unknown] anastrozole 1 mg tablet 1 tab PO DAILY chemo 04/29/22 [History Last Taken Unknown] calcium 600 mg capsule 600 mg PO DAILY supplement 04/29/22 [History Last Taken Unknown] carvedilol 12.5 mg tablet 1 tab PO DAILY blood pressure 04/29/22 [History Last Taken Unknown] cephalexin 500 mg capsule 500 mg PO Q12H antibiotic 04/29/22 [History Last Taken Unknown] cholecalciferol (vitamin D3) 50 mcg (2,000 unit) tablet 1 tab PO DAILY supplement 04/29/22 [History Last Taken Unknown] citalopram 10 mg tablet 1 tab PO DAILY depression 04/29/22 [History Last Taken Unknown] clopidogrel 75 mg tablet 1 tab PO DAILY antiplatelet 04/29/22 [History Last Taken Unknown] doxazosin 2 mg tablet 1 tab PO DAILY urinary 04/29/22 [History Last Taken Unknown] levothyroxine 100 mcg tablet 1 tab PO DAILY thyroid 04/29/22 [History Last Taken Unknown] lisinopril 10 mg tablet 3 tab PO DAILY blood pressure 04/29/22 [History Last Taken Unknown] metformin 500 mg tablet 1 tab PO DAILY diabetes 04/29/22 [History Last Taken Unknown] potassium chloride 10 mEq tablet,extended release 10 meq PO DAILY supplement 04/29/22 [History Last Taken Unknown] Allergy/AdvReac Type Severity Reaction Status Date / Time aspirin Allergy Unknown Nausea Verified 04/28/22 08:07 albuterol AdvReac I GET VERY Verified 04/28/22 08:07 SHAKEY/HYPERVENTILATING Penicillins AdvReac Nausea/Vom/ Verified 04/28/22 08:07 Diarrhea Family History Father Cancer bone cancer Brother Heart disease Surgical History H/O mastectomy History of appendectomy History of section Social History household members: spouse Smoking Status: Current every day smoker tobacco type: cigarettes Tobacco: How many years used: 50 alcohol intake: never substance use type: marijuana and other details: smokes 4 joints a day ROS ROS Narrative Pertinent positives and pertinent negatives as noted in HPI. All other systems were reviewed and are negative. Vital Signs Vital Signs Vital Signs: 04/29/22 00:06 04/29/22 00:42 04/29/22 01:06 Temperature 98.1 F Temperature Source Oral Pulse Rate 75 75 Respiratory Rate 13 13 Respiratory Effort Normal Non-Labored Respiratory Pattern Normal Blood Pressure 143/90 H 120/84 H Blood Pressure Mean 107 96 Pulse Ox 96 91 Oxygen Delivery Method Room Air Room Air Weight Weight: 61.643 kg Body Mass Index (BMI) 26.5 Physical Exam Narrative Physical exam: General: Well-nourished, well-developed. Head: Normocephalic, atraumatic, no tenderness Eyes: Vision is grossly intact. EOMI ENT, no trauma, moist mucous membranes, no rhinorrhea Neck: Nontender, full range of motion, no spinal tenderness, deformities, step-off CVS: Regular rate and rhythm. S1-S2 present. No murmur, gallop or rub. Respiratory : clear to auscultation bilaterally, chest wall nontender, no wheezing Abdomen: Soft, nontender, nondistended, normal bowel sounds, no masses : Deferred Back: Nontender, no CVA tenderness, no midline spinal tenderness, deformities, step-offs Extremities: Minimal movement of bilateral legs; right worse than left. Skin: Normal color, no trauma, abrasions Neuro: Lethargic; incoherent speech. Oriented to place, year. Patient thinks that it is March instead of April. She knows the day. Psychiatry: Normal mood. Normal affect. Not depressed. Not anxious. Results Lab / Micro Data Result Diagrams: 04/29/22 00:25 04/29/22 00:25 Labs: Laboratory Results - last 24 hr 04/29/22 00:17: POC Glucose 29 L* 04/29/22 00:25: WBC 16.3 H, RBC 4.58, Hgb 12.8, Hct 40.4, MCV 88.2, MCH 27.9, MCHC 31.7 L, RDW Std Deviation 47.5 H, RDW Coeff of Chad 14.7 H, Plt Count 308, MPV 11.2, Immature Gran % (Auto) 0.900, Neut % (Auto) 66.5, Lymph % (Auto) 26.3, [place] % (Auto) 4.8, Eos % (Auto) 0.9, Baso % (Auto) 0.6, Absolute Neuts (auto) 10.9 H, Absolute Lymphs (auto) 4.28, Nucleated RBC % 0 04/29/22 00:25: Sodium 137, Potassium 3.7, Chloride 104, Carbon Dioxide 26.0, Anion Gap 7, BUN 40 H, Creatinine 1.67 H, Estim Creat Clear Calc 23.16, Est GFR (MDRD) Af Amer 39 L, Est GFR (MDRD) Non-Af 32 L, BUN/Creatinine Ratio 24.0 H, Glucose 34 L*, Calcium 9.2, Total Bilirubin 0.30, Direct Bilirubin 0.09, AST 24, ALT 20, Alkaline Phosphatase 122 H, Total Protein 6.4, Albumin 2.8 L, Globulin 3.6 04/29/22 00:36: POC Glucose 192 H 04/29/22 01:07: POC Glucose 153 H 04/29/22 01:50: Urine Color Yellow, Urine Clarity Clear, Urine pH 5.0, Ur Specific [place] 1.025, Urine Protein 100 H, Urine Glucose (UA) 50 H, Urine Ketones 5 H, Urine Occult Blood 10 H, Urine Nitrite Negative, Urine Bilirubin Negative, Urine Urobilinogen Normal, Ur Leukocyte Esterase Negative, Urine RBC 0 SEEN, Urine WBC 0 SEEN, Ur Squamous Epith Cells 0 SEEN, Urine Bacteria 0 SEEN, Urine Mucus 0 SEEN Radiology Impression Brain CT 04/29/22 00:20 IMPRESSION: No acute intracranial finding. Electronically Signed: Raz Rivero MD at 1:51 EDT , Cervical Spine CT 04/29/22 00:20 IMPRESSION: No acute fracture or subluxation in the cervical spine. Electronically Signed: Raz Rivero MD at 2:03 EDT , Chest X-Ray 04/29/22 00:20 IMPRESSION: No acute cardiopulmonary process. Electronically Signed: Raz Rivero MD at 1:20 EDT , Hip/Pelvis X-Ray 04/29/22 00:20 IMPRESSION: Mildly displaced fracture of the right lesser trochanter and right femoral intramedullary marisabel and dynamic hip screw placement, similar compared to the prior. Electronically Signed: Merlin Farmer MD at 1:11 EDT , Assessment & Plan Assessment/Plan (1) Hypoglycemia: (2) Fall: (3) Leg weakness: PLAN: Plan Hypoglycemia Review of labs shows fingerstick blood glucose of 29 the emergency department. Corrected at the emergency department. Stable blood glucose thereafter. Hold all home hypoglycemic regimen. Trend blood glucose. Hypoglycemia protocol. Fall Hip and pelvis x-ray on presentation and outside of 03/23/2022 was visualized and independently interpreted. Agree with radiologist impression of mildly displaced fracture of the right lesser trochanter and right femoral intramedulla ry marisabel and dynamic hip screw placement, similar compared to previous. Leg secondary to weakness and hypoglycemia. Patient's and relation who was at bedside the ED once therapy evaluation and possible rehabilitation. PT and OT consult. Case management consult for disposition. Recent UTI White count on presentation was 16.3. Negative urine leukocyte esterase and urine nitrite Patient was at emergency department on 04/23/2022 and was prescribed Keflex for 7 days. Keflex continued. Hypertension Blood pressure is not within goal Lisinopril and amlodipine continued. Trend blood pressure and adjust blood pressure medications. CKD stage IIIb Stable. DVT prophylaxis: Subcutaneous Lovenox. Charges/Coding Visit Charges OBSV E&M: 71082 Initial observation care L3
[2022-04-29] MEDS: Acetaminophen 500 MG Tablet 1000 MG PO (04:45)
[2022-04-29] MEDS: Levothyroxine 100 MCG Tablet PO (06:03)
--- NOTE | 2022-04-29 06:25 | NURSING ---
Blood glucose 62 on admission. Offered oral replacement however pt would only drink a few sips of juice and handed cup back to nurse. Pt refusing to eat or drink anymore at this time. Recheck of BG was 59. 12.5g of dextrose given at this time.
[2022-04-29 06:40] LABS: Bedside Glucose 62 mg/dL (74-106)
[2022-04-29 06:40] LABS: Bedside Glucose 59 mg/dL (74-106)
[2022-04-29 06:40] LABS: Bedside Glucose 175 mg/dL (74-106)
[2022-04-29 06:54] LABS: Absolute Lymphocyte Count 3.81 X10^3/uL (0.83-4.51); Absolute Neutrophil Count 8.3 X10^3/uL (2.0-7.7); Basophil# 0.09 X10^3/uL; Basophil% 0.7 % (0-1); Eosinophil# 0.14 X10^3/uL; Eosinophils% 1.1 % (0-5); Hematocrit 35.3 % (37-47); Hemoglobin 11.4 g/dL (12.0-15.0); Lymphocyte # 3.81 X10^3/ul (0.83-4.51); Mean Corp Hgb Conc 32.3 g/dL (32-36); Mean Corpuscular Hgb 28.2 pg (27.0-32.0); Mean Corpuscular Volume 87.4 fL (81-99); Mean Platelet Vol. 10.7 fl (6.2-12.0); Monocyte# 0.72 X10^3/uL; Monocyte% 5.5 % (0-10); NRBC Flagged by Analyzer 0 % (0-5); Neutrophil # 8.28 X10^3/uL (2.7-7.7); Neutrophil % 63.1 % (47-70); Platelet Count 261 K/mm3 (150-450); RBC Distribution Width CV 14.6 % (11.6-14.6); RBC Distribution Width SD 46.4 fl (35.1-43.9); Red Blood Count 4.04 M/mm3 (4.2-5.4); White Blood Count 13.1 K/mm3 (4.4-11.0)
[2022-04-29 07:21] LABS: Hemoglobin A1c 12.2 % (3.8-5.6)
[2022-04-29 07:26] LABS: Anion Gap 9 (5-15); BUN 34 mg/dL (7-18); BUN/Creat Ratio 23.8 RATIO (10-20); Calcium,Total 8.4 mg/dL (8.5-10.1); Chloride 103 mmol/L (98-107); Creatinine, Serum 1.43 mg/dL (0.55-1.02); EST Glomerular Filtration Rate 39 mL/min (>60); Est Glom Filt Rate - Afr Amer 47 mL/min (>60); Estimated Creatinine Clearance 27.05 ml/min; Glucose 149 mg/dL (74-106); Potassium 3.3 mmol/L (3.5-5.1); Sodium Level 135 mmol/L (136-145)
[2022-04-29] MEDS: Calcium Carbonate 500 MG Tablet PO (08:43)
[2022-04-29] MEDS: Potassium Chloride Oral Tablet 10 MEQ PO (08:43)
[2022-04-29] MEDS: Carvedilol 12.5 MG Tablet PO (10:18)
[2022-04-29] MEDS: Menthol/Lanolin/Calamine/Znox 113 GM Tube 1 APPLIC TOPICAL ×2 (10:19→21:36)
[2022-04-29] MEDS: Anastrozole 1 MG TABLET PO (10:19)
[2022-04-29] MEDS: Doxazosin 1 MG Tablet 2 MG PO (10:19)
[2022-04-29] MEDS: amLODIPine 10 MG Tablet PO (10:20)
[2022-04-29] MEDS: Citalopram 10 MG Tablet PO (10:20)
[2022-04-29] MEDS: Cholecalciferol (VIT D3) 25 MCG TABLET (1,000 UNITS) 50 MCG PO (10:20)
[2022-04-29] MEDS: Enoxaparin 30 MG/0.3 ML Syringe SC (10:20)
[2022-04-29] MEDS: Clopidogrel Bisulfate 75 MG Tablet PO (10:20)
[2022-04-29] MEDS: Lisinopril 10 MG Tablet 30 MG PO (10:20)
[2022-04-29] MEDS: Cephalexin 500 MG Capsule PO ×2 (10:20→21:40)
[2022-04-29 12:55] LABS: Bedside Glucose 72 mg/dL (74-106)
--- NOTE | 2022-04-29 15:30 | CASEMGMT ---
Addendum entered by Yazmin Cole 04/29/22 16:20: Email to palliative to verify if patient is active. Awaiting response. Original Note: LATASHA BOSTON Assessment: Face to Face with pt for initial transition planning/care coordination assessment. LATASHA BOSTON introduced self and role at [facility], pt voices understanding and consents to assessment. Pt is A/O x4 and answers all questions appropriately at this time. Asked pt who she would like her dc plan discussed with, she states she doesn't care if it is her or dtr Lalitha. Care providers, pharmacy, and demographics verified/updated. Admitting Dx: fall PCP:Benjamín Specialists:Pt denies. Preferred Pharmacy: [facility] [facility] Insurance: [employer] Prescription Benefit: yes LW/HPOA: Pt denies having a LW/DPOA and denies need for info regarding AD. LNOK: [place], ; Lalitha Garcia, dtr Living Arrangements: Pt lives with her , dtr's ex boyfriend and his mother and her grandson in a two story house with 4 steps to enter. Pt stated different family members lived with her and she lives in an apt but pt dtr stated differently. Pt states she is unable to bathe and dress herself at home and states no one helps her. Transportation: Pt does not drive. She states her provides transportation. DME/HHC/SNF: Pt has BGM and checks her blood sugar every chance I get. She states she has sufficient supplies for her BGM as well as her insulin. Pt has a FWW. Denies previous HHC or SNF stays. Pt states no concerns with going home at time of dc. She states her will take care of her. Asked if he would assist with bathing and dressing and she states yes. Asked what is different now that he will help if he did not before. She shrugs her shoulders. Pt states she would be agreeable to therapy s/t as well. Unsure if pt understands this. LATASHA BOSTON called pt , he has a vm that is not set up. TC to dtr Lalitha. She states this LATASHA BOSTON needs to speak to her adopted sister because she can translate to her so she understands. Brigitte Doyle states that pt home environment is not well. States that they do not have gas as it was shut off d/t gas leak. Therefore, pt does not have hot water. Brigitte states pt has been found laying in feces with bedsores. States pt does not take her meds as she should, is not bathing or eating. She states pt has Palliative Care services and they do not want pt to return home. Pt states no further concerns/needs. CM to follow. Advised pt to ask CM if any further question/concerns/needs arise, voices understanding. Pt Goal: TBD Plan: TBD, no therapy evals noted. Updated SW of assessment.
--- NOTE | 2022-04-29 16:32 | CASEMGMT ---
Social Work SW met with pt in room and introduced self and role of SW. SW explained that per physician, pt likely cannot return home at this time. Pt is understanding and agreeable. SW provided pt with list of SNF providers including quality and resource use data and consistent with the patient's preferred geographic region, medical needs and insurance network. Pt preferred provider is [facility]. SW will make referral. Plan: [facility], pending acceptance and precert SERGEY Pantoja
[2022-04-29 17:00] LABS: Bedside Glucose 105 mg/dL (74-106)
--- NOTE | 2022-04-29 18:10 | PCM.HOSP.N ---
Hospitalist Note She was seen and examined today briefly, I talked with her about going to a rehab facility, she knows that she will need rehab services, she is not objecting to this at this time, I suggested that we go ahead and find a place for the patient-I have instructed psychiatric social worker supervisor to look for a bed at the [facility]. Hopefully the patient will consent to this. She has had multiple ER visits and I believe that she cannot return home without receiving inpatient rehab services. Patient does not seem to objective this at this time.
[2022-04-29] MEDS: Glucerna Shake 120 ML LIQUID PO (21:36)
[2022-04-29 22:00] LABS: Bedside Glucose 133 mg/dL (74-106)
[2022-04-30 02:15] VITALS: BP 140/78; PULSE 63; RESP 16; TEMP 36.4; O2SAT 98
[2022-04-30] MEDS: Levothyroxine 100 MCG Tablet PO (05:09)
[2022-04-30 07:05] LABS: Bedside Glucose 82 mg/dL (74-106)
[2022-04-30 07:05] LABS: Bedside Glucose 55 mg/dL (74-106)
[2022-04-30 07:24] VITALS: O2SAT 95
[2022-04-30 08:00] VITALS: BP 140/86; PULSE 64; RESP 18; TEMP 36.6; O2SAT 98
[2022-04-30] MEDS: Calcium Carbonate 500 MG Tablet PO (08:14)
[2022-04-30] MEDS: Carvedilol 12.5 MG Tablet PO (08:14)
[2022-04-30] MEDS: Potassium Chloride Oral Tablet 10 MEQ PO (08:14)
--- NOTE | 2022-04-30 08:53 | CASEMGMT ---
Discharge Time Clock Mechanic Esmer d/c property assistant was notified today by LUIS ARMANDO Montilla to send referral over to [facility]. Esmer contacted Tracey at [facility] and sent over the referral. When PT/OT sees patient and notes become available Esmer will send over notes to [facility]. Plan: [facility], Waiting Acceptance. Esmer Campbell Discharge Time Clock Mechanic
--- NOTE | 2022-04-30 10:01 | CASEMGMT ---
Discussed pt status with Melissa at [facility], she is aware pt is planning to go to [facility] pending precert. She states pt has multiple family members living with her and recommendations are being made to patient from the nurse but pt is not following them.
--- NOTE | 2022-04-30 10:25 | CASEMGMT ---
Addendum entered by Esmer Campbell 04/30/22 11:13: PT notes have been sent to Tracey at [facility]. Esmer Campbell Discharge Superintendent Stations Original Note: Discharge Superintendent Stations Tracey from [facility] reached out. Facility can accept patient. Tracey will start pre-cert once Esmer sends PT notes over to Tracey. PT notes are currently not available. LUIS ARMANDO Montilla has been notified. Plan: [facility], once pre-cert is obtained. Esmer Campbell Discharge Superintendent Stations
[2022-04-30] MEDS: Doxazosin 1 MG Tablet 2 MG PO (10:47)
[2022-04-30] MEDS: Menthol/Lanolin/Calamine/Znox 113 GM Tube 1 APPLIC TOPICAL ×2 (10:47→21:18)
[2022-04-30] MEDS: Anastrozole 1 MG TABLET PO (10:47)
[2022-04-30] MEDS: Enoxaparin 30 MG/0.3 ML Syringe SC (10:48)
[2022-04-30] MEDS: Citalopram 10 MG Tablet PO (10:48)
[2022-04-30] MEDS: Cephalexin 500 MG Capsule PO (10:48)
[2022-04-30] MEDS: Clopidogrel Bisulfate 75 MG Tablet PO (10:49)
[2022-04-30] MEDS: Lisinopril 10 MG Tablet 30 MG PO (10:49)
[2022-04-30] MEDS: amLODIPine 10 MG Tablet PO (10:49)
[2022-04-30] MEDS: Cholecalciferol (VIT D3) 25 MCG TABLET (1,000 UNITS) 50 MCG PO (10:49)
--- NOTE | 2022-04-30 11:19 | CASEMGMT ---
Addendum entered by Sherry Almaraz 04/30/22 13:38: LUIS ARMANDO met with family of pt, Lalitha Garcia (dgt) and Brigitte Doyle (adoptive dgt). Family and pt discussed options and decided [facility] the SNF they would like. SW called pt and HCPOA, Cullen Dale, to update and confirm with him. SW explained the process to him and he verbally acknowledged his understanding. Mr. Dale was in agreement and accepted [facility]. SW called discharge bilingual office assistant, Esmer, to request referral be sent to [facility]. Plan: [facility], pending acceptance and precert SERGEY Khan Addendum entered by Sherry Almaraz 04/30/22 12:17: Social Work SW call family back to update there are no beds available at the [facility] currently. SW provided list of in network SNF to Lalitha, pt daughter, over the phone. Lalitha stated she would like [facility] as next choice but asked if SW would wait to confirm this choice with pt until daughter and other family can arrive at the hospital. Original Note: Social Work SW called pt to update him on pt acceptance for [facility]. Pt did not answer so SW called next person on pt list, Daughter, Lalitha Garcia. SW shared update that pt was accepted at [facility] and precert was pending. Lalitha expressed concern with her mother going to [facility] as it is a farther distance from daughter and other family to travel to visit pt once she is there. Lalitha expressed that she prefers her mother go to [facility]. LUIS ARMANDO explained that pt herself chose [facility] but that this can be discussed with family and pt together to make the best choice. Lalitha explained that she and other family members were on their way to the hospital to see pt and would be willing to meet with SW and pt to determine which SNF works best for pt and pt's family. Lalitha stated she would be at the hospital shortly to discuss.
[2022-04-30 12:35] LABS: Bedside Glucose 183 mg/dL (74-106)
--- NOTE | 2022-04-30 13:40 | CASEMGMT ---
Social Work SW received phone call from pts inquiring about discharge plan. SW explained that staff has attempted to call him but no answer and VM is not set up. Pt is agreeable that pt will need to go to SNF short term prior to return home. SW provided options of facilities that are in network with pt insurance and pt would like [facility]. SW explained that pt's dgts are coming in and want to talk to pt about this and spouse is agreeable to this and requests a return call with final decision. SERGEY Pantoja
--- NOTE | 2022-04-30 13:45 | CASEMGMT ---
Discharge Process Lead Esmer trinidad/ulisses travel assistant sent over a referral to [facility]. Will follow up. Plan: [facility]. Esmer Campbell Discharge Process Lead
[2022-04-30 14:00] VITALS: PULSE 86; RESP 18; O2SAT 95
[2022-04-30 16:00] VITALS: BP 140/82; PULSE 61; RESP 18; TEMP 36.6; O2SAT 92
[2022-04-30 16:30] LABS: Bedside Glucose 244 mg/dL (74-106)
--- NOTE | 2022-04-30 18:27 | PN.HOSP_ITS ---
Subjective Subjective Patient was seen and examined today, she does not complain of any issues at this time, we are currently awaiting approval for the patient to be transferred to senior living facility for inpatient rehab services. Objective Data Objective Data Vital Signs: Vital Signs Temp Pulse Resp BP Pulse Ox O2 Del Method O2 Flow Rate 97.8 F 61 18 140/82 H 92 Room Air 2 04/30/22 16:00 04/30/22 16:00 04/30/22 16:00 04/30/22 16:00 04/30/22 16:00 04/30/22 16:00 04/30/22 14:00 Oxygen Flow Rate (L/min) 2 Oxygen Delivery Method Room Air Weight: 60 kg Body Mass Index (BMI) 25.8 Intake & Output: Intake and Output for Last 24 Hours 04/28/22 04/29/22 04/30/22 23:59 23:59 23:59 Intake Total 800 / 800 350 / 350 Output Total 200 / 200 250 / 250 Balance 600 / 600 100 / 100 Lab / Micro Data Result Diagrams: 04/29/22 06:46 04/29/22 06:46 Labs: Laboratory Results - last 24 hr 04/29/22 21:38: POC Glucose 133 H 04/30/22 06:22: POC Glucose 55 L 04/30/22 06:42: POC Glucose 82 04/30/22 12:15: POC Glucose 183 H 04/30/22 16:08: POC Glucose 244 H Physical Exam Const alert, oriented x3 and no apparent distress Constitutional Narrative: Patient appears older than her stated age HEENT head/scalp atraumatic and moist oral mucous membranes Head and Scalp: normocephalic Eyes EOMs intact bilaterally and conjunctivae normal Neck supple and no JVD Resp normal respiratory effort, no retractions, no use of accessory muscles and clear to auscultation bilaterally Cardio regular rate, regular rhythm, S1 normal heart sound, S2 normal heart sound, no murmurs and no rub Extremity normal to inspection and no clubbing, cyanosis or edema Neuro CN's II-XII intact bilaterally, moves all extremities and no focal motor deficits Sensorium / Orientation: awake, oriented to person and oriented to place Psych affect normal Assessment & Plan Assessment/Plan (1) Debility: PLAN: Plan 1. Uqnhbtnryvoz-fyyealik-yf the time of this dictation, patient's 4 PM blood sugar was 244, I will place the patient on a sliding scale insulin protocol, patient's lack of oral intake makes managing her blood sugar difficult. #2 acute debility-PT and OT are seeing the patient, she will need at least short-term placement in a senior living facility. #3 cerebrovascular disease-patient is on Plavix #4 essential hypertension-continue present blood pressure medications #5 type 2 diabetes-patient will be placed on sliding scale insulin, blood sugars will be monitored #6 hypokalemia-patient's BMP will be rechecked tomorrow, she is on oral potassium currently Charges/Coding Visit Charges OBSV E&M: 40518 Subsequent observation care L2
[2022-04-30 20:10] VITALS: BP 126/69; PULSE 62; RESP 16; TEMP 36.6; O2SAT 96
[2022-04-30 21:41] LABS: Bedside Glucose 227 mg/dL (74-106)
[2022-05-01 02:10] VITALS: BP 122/84; PULSE 71; RESP 16; TEMP 36.6; O2SAT 96
[2022-05-01] MEDS: Levothyroxine 100 MCG Tablet PO (06:23)
[2022-05-01 06:45] LABS: Bedside Glucose 147 mg/dL (74-106)
[2022-05-01 07:35] VITALS: O2SAT 96
--- NOTE | 2022-05-01 09:11 | CASEMGMT ---
Discharge Erecting Crane Operator Esmer called [facility]. Vannesa is not in the office yet. Will follow up. Plan: [facility], Waiting acceptance. Esmer Campbell Discharge Erecting Crane Operator
[2022-05-01] MEDS: amLODIPine 10 MG Tablet PO (09:20)
[2022-05-01] MEDS: Cholecalciferol (VIT D3) 25 MCG TABLET (1,000 UNITS) 50 MCG PO (09:20)
[2022-05-01] MEDS: Clopidogrel Bisulfate 75 MG Tablet PO (09:20)
[2022-05-01] MEDS: Lisinopril 10 MG Tablet 30 MG PO (09:20)
[2022-05-01] MEDS: Citalopram 10 MG Tablet PO (09:20)
[2022-05-01] MEDS: Potassium Chloride Oral Tablet 10 MEQ PO (09:20)
[2022-05-01] MEDS: Calcium Carbonate 500 MG Tablet PO (09:21)
[2022-05-01] MEDS: Carvedilol 12.5 MG Tablet PO (09:21)
[2022-05-01] MEDS: Enoxaparin 30 MG/0.3 ML Syringe SC (09:21)
[2022-05-01] MEDS: Menthol/Lanolin/Calamine/Znox 113 GM Tube 1 APPLIC TOPICAL ×2 (09:21→21:44)
[2022-05-01] MEDS: Anastrozole 1 MG TABLET PO (09:21)
[2022-05-01] MEDS: Doxazosin 1 MG Tablet 2 MG PO (09:21)
[2022-05-01] MEDS: Acetaminophen 325 MG Tablet 650 MG PO (09:29)
[2022-05-01 09:38] VITALS: BP 149/83; PULSE 67; RESP 16; TEMP 36.4; O2SAT 93
--- NOTE | 2022-05-01 11:20 | CASEMGMT ---
Discharge Respiratory Care Practitioner Esmer reached out to [facility]. Irene is no longer there and [facility] never received referral. Esmer D/c addictions counselor assistant sent the referral again. Plan: [facility], Waiting acceptance. Esmer Campbell Discharge Respiratory Care Practitioner
[2022-05-01] MEDS: Insulin Lispro 100 UNIT/ML INSULN.PEN SC ×3 (11:24→21:44)
[2022-05-01 11:39] VITALS: BP 117/74; PULSE 63; RESP 16; TEMP 36.7; O2SAT 100
[2022-05-01 11:45] LABS: Bedside Glucose 249 mg/dL (74-106)
--- NOTE | 2022-05-01 14:02 | CASEMGMT ---
Discharge Pharmacy Helper Reached out to [facility]. Wan Support Specialist said everyone is in a meeting. Esmer emailed Irene in regards to the referral. Referral has been sent twice and Esmer can't seem to reach anyone at facility. Will follow up. Plan: [facility], Waiting Acceptance Esmer Campbell Discharge Pharmacy Helper
--- NOTE | 2022-05-01 14:36 | CASEMGMT ---
Discharge Lamination Builder Esmer trinidad/ulisses printing bindery assistant sent a referral over to [facility] at the [facility]. Will follow up. Plan: [facility], Waiting acceptance. Esmer Campbell Discharge Lamination Builder
--- NOTE | 2022-05-01 14:49 | CASEMGMT ---
Social Work Per vivi Lyman/ulisses assistant scientist, [facility] has not been able to review referral yet. Pt's family has stated first choice is [facility] and second choice is [facility]. LUIS ARMANDO placed call to Madison at the [facility] to check if a bed has become available. Madison confirms she will have a bed tomorrow and would accept the referral. Phone call to pt Cullen and updated on above. Cullen would like referral sent to [facility]. Esmer updated and to send referral. SERGEY Pantoja
[2022-05-01 14:52] VITALS: BP 109/70; PULSE 64; RESP 16; TEMP 36.6; O2SAT 98
--- NOTE | 2022-05-01 15:38 | CASEMGMT ---
Discharge Weather Anchor Reached out to Madison at the [facility]. Patient has been accepted. [facility] will start pre-cert 05/02/22. LUIS ARMANDO Montilla notified. Plan: [facility], Waiting pre-cert. Esmer Campbell Discharge Weather Anchor
[2022-05-01 16:05] LABS: Bedside Glucose 254 mg/dL (74-106)
--- NOTE | 2022-05-01 16:35 | PCM.PN.HOSP ---
Subjective Subjective Seen and examined today, she does not appear to be in any distress, she has no complaints of any shortness of breath, fevers, or chills. We are awaiting confirmation of the bed at a shelter facility for the patient. Objective Data Objective Data Vital Signs: Vital Signs Temp Pulse Resp BP Pulse Ox O2 Del Method O2 Flow Rate 97.9 F 64 16 109/70 98 Nasal Cannula 2 05/01/22 14:52 05/01/22 14:52 05/01/22 14:52 05/01/22 14:52 05/01/22 14:52 05/01/22 14:53 05/01/22 14:53 Oxygen Flow Rate (L/min) 2 Oxygen Delivery Method Nasal Cannula Weight: 60 kg Body Mass Index (BMI) 25.8 Intake & Output: Intake and Output for Last 24 Hours 04/29/22 04/30/22 05/01/22 23:59 23:59 23:59 Intake Total 800 / 800 750 / 750 150 / 150 Output Total 200 / 200 250 / 450 450 / 450 Balance 600 / 600 500 / 300 -300 / -300 Lab / Micro Data Result Diagrams: 04/29/22 06:46 04/29/22 06:46 Labs: Laboratory Results - last 24 hr 04/30/22 21:19: POC Glucose 227 H 05/01/22 06:22: POC Glucose 147 H 05/01/22 11:19: POC Glucose 249 H 05/01/22 15:45: POC Glucose 254 H Physical Exam Narrative alert, oriented x3 and no apparent distress Constitutional Narrative: Patient appears older than her stated age HEENT head/scalp atraumatic and moist oral mucous membranes Head and Scalp: normocephalic Eyes EOMs intact bilaterally and conjunctivae normal Neck supple and no JVD Resp normal respiratory effort, no retractions, no use of accessory muscles and clear to auscultation bilaterally Cardio regular rate, regular rhythm, S1 normal heart sound, S2 normal heart sound, no murmurs and no rub Extremity normal to inspection and no clubbing, cyanosis or edema Neuro CN's II-XII intact bilaterally, moves all extremities and no focal motor deficits Sensorium / Orientation: awake, oriented to person and oriented to place Psych Patient has flat affect Const alert, oriented x3 and no apparent distress Constitutional Narrative: Patient appears older than her stated age HEENT head/scalp atraumatic and moist oral mucous membranes Eyes EOMs intact bilaterally and conjunctivae normal Neck supple and no JVD Resp normal respiratory effort, no retractions, no use of accessory muscles and clear to auscultation bilaterally Cardio regular rate, regular rhythm, S1 normal heart sound, S2 normal heart sound, no murmurs and no rub Extremity normal to inspection and no clubbing, cyanosis or edema Neuro CN's II-XII intact bilaterally, moves all extremities and no focal motor deficits Sensorium / Orientation: awake, oriented to person and oriented to place Psych affect normal Assessment & Plan Assessment/Plan (1) Debility: PLAN: Plan 1. Fkccucvsvsdy-mdhsvotf-kvlmbfiq to monitor blood sugars, sliding scale insulin will be given as needed #2 acute debility-PT and OT are seeing the patient, she will need at least short-term placement in a shelter facility. #3 cerebrovascular disease-patient is on Plavix #4 essential hypertension-continue present blood pressure medications #5 type 2 diabetes-patient is on sliding scale insulin administration #6 hypokalemia-patient's BMP will be rechecked tomorrow, she is on oral potassium currently Charges/Coding Visit Charges OBSV E&M: 32323 Subsequent observation care L2
[2022-05-01 20:32] VITALS: BP 125/73; PULSE 65; RESP 16; TEMP 36.7; O2SAT 96
[2022-05-01 22:06] LABS: Bedside Glucose 162 mg/dL (74-106)
[2022-05-02 02:35] VITALS: BP 126/64; PULSE 68; RESP 16; TEMP 36.6; O2SAT 95
[2022-05-02] MEDS: Levothyroxine 100 MCG Tablet PO (06:26)
[2022-05-02 06:50] LABS: Bedside Glucose 141 mg/dL (74-106)
[2022-05-02 07:19] LABS: Anion Gap 7 (5-15); BUN 22 mg/dL (7-18); BUN/Creat Ratio 16.7 RATIO (10-20); Chloride 107 mmol/L (98-107); Creatinine, Serum 1.32 mg/dL (0.55-1.02); EST Glomerular Filtration Rate 43 mL/min (>60); Est Glom Filt Rate - Afr Amer 52 mL/min (>60); Glucose 120 mg/dL (74-106); Potassium 3.8 mmol/L (3.5-5.1); Sodium Level 139 mmol/L (136-145)
[2022-05-02 07:20] VITALS: O2SAT 94
[2022-05-02] MEDS: Carvedilol 12.5 MG Tablet PO (07:28)
[2022-05-02] MEDS: Potassium Chloride Oral Tablet 10 MEQ PO (07:29)
[2022-05-02] MEDS: Calcium Carbonate 500 MG Tablet PO (07:29)
[2022-05-02 07:56] VITALS: BP 123/75; PULSE 77; RESP 16; TEMP 37; O2SAT 99
[2022-05-02] MEDS: Doxazosin 1 MG Tablet 2 MG PO (09:26)
[2022-05-02] MEDS: Lisinopril 10 MG Tablet 30 MG PO (09:26)
[2022-05-02] MEDS: Cholecalciferol (VIT D3) 25 MCG TABLET (1,000 UNITS) 50 MCG PO (09:26)
[2022-05-02] MEDS: Clopidogrel Bisulfate 75 MG Tablet PO (09:26)
[2022-05-02] MEDS: Citalopram 10 MG Tablet PO (09:26)
[2022-05-02] MEDS: amLODIPine 10 MG Tablet PO (09:26)
[2022-05-02] MEDS: Anastrozole 1 MG TABLET PO (09:26)
[2022-05-02] MEDS: Enoxaparin 30 MG/0.3 ML Syringe SC (09:27)
[2022-05-02] MEDS: Menthol/Lanolin/Calamine/Znox 113 GM Tube 1 APPLIC TOPICAL ×2 (09:33→22:16)
[2022-05-02] MEDS: Insulin Lispro 100 UNIT/ML INSULN.PEN SC ×3 (11:03→22:15)
[2022-05-02 11:09] VITALS: BP 105/69; PULSE 72; RESP 16; TEMP 36.9; O2SAT 95
[2022-05-02 11:25] LABS: Bedside Glucose 216 mg/dL (74-106)
--- NOTE | 2022-05-02 11:36 | CASEMGMT ---
LUIS ARMANDO called and left voice mail message for [facility] at [facility]. LUIS ARMANDO inquired as if the plan continues to be no bed till Friday with precert pending. Plan: [facility] at [facility]. Patient has been accepting. Waiting on bed and precert. Belinda WHITTEN
--- NOTE | 2022-05-02 12:32 | CM.ED ---
SW Note LUIS ARMANDO spoke to Cullen Dale, patient's . Cullen said that he feels that patient is some of the way she is is because her grandson, age 15 years of age, committed suicide 4 years ago and then on December 04 2021 her son (the grandson's uncle) completed suicide via gun. Cullen said that patient will answer that patient denies any self harm but Cullen said that at times patient does not want to take her medication and stated isn't that self harm?. SW explained that with depression patient's lose interest in doing the ADL's or activities such as taking their medication. SW will update [facility] regarding Cullen's report. LUIS ARMANDO educated Cullen on [facility] having Suicide Loss survivors support group. Cullen said that he and patient have been together for 35 years. Cullen reported that he lost his mom and patient lost her dad the same year which was a connection they had with each other. SW provided emotional support to Cullen. SW encouraged Cullen to contact staff if needs arise. Cullen inquired about the transfer and SW indicated that it was this screen writer's understanding that patient's room will not be ready till Friday and we are also waiting on precertification. SW remains available if needs arise. Plan: Emotional support provided Belinda KUMARI
--- NOTE | 2022-05-02 12:51 | CM.ED ---
LUIS ARMANDO Note LUIS ARMANDO received voice mail from [facility] at [facility]. Madison said that they obtained precertification and that patient can come tomorrow 05/03/22. LUIS ARMANDO called Madison at the [facility] and updated her regarding patient and her loss of grandson and son and reports of depression. Madison said that they have a counselor that comes every Friday so maybe they can schedule patient with the counselor at [facility]. Madison will update the director social welfare. Belinda KUMARI
[2022-05-02 14:52] VITALS: BP 102/66; PULSE 63; RESP 16; TEMP 37.2; O2SAT 96
[2022-05-02 16:30] LABS: Bedside Glucose 174 mg/dL (74-106)
--- NOTE | 2022-05-02 17:38 | PCM.PN.HOSP ---
Subjective Subjective Patient was seen and examined today, we still do not have approval for the patient to go to residential facility for inpatient residential services. Patient does not complain of any shortness of breath, chills, fever, or chest pain to this examiner. Objective Data Objective Data Vital Signs: Vital Signs Temp Pulse Resp BP Pulse Ox O2 Del Method O2 Flow Rate 98.9 F 63 16 102/66 96 Room Air 2 05/02/22 14:52 05/02/22 14:52 05/02/22 14:52 05/02/22 14:52 05/02/22 14:52 05/02/22 14:52 05/01/22 14:53 Oxygen Flow Rate (L/min) 2 Oxygen Delivery Method Room Air Weight: 60 kg Body Mass Index (BMI) 25.8 Intake & Output: Intake and Output for Last 24 Hours 04/30/22 05/01/22 05/02/22 23:59 23:59 23:59 Intake Total 750 / 750 300 / 300 100 / 100 Output Total 250 / 450 550 / 700 375 / 375 Balance 500 / 300 -250 / -400 -275 / -275 Lab / Micro Data Result Diagrams: 04/29/22 06:46 05/02/22 05:40 Labs: Laboratory Results - last 24 hr 05/01/22 21:43: POC Glucose 162 H 05/02/22 05:40: Sodium 139, Potassium 3.8, Chloride 107, Carbon Dioxide 25.0, Anion Gap 7, BUN 22 H, Creatinine 1.32 H, Estim Creat Clear Calc 29.30, Est GFR (MDRD) Af Amer 52 L, Est GFR (MDRD) Non-Af 43 L, BUN/Creatinine Ratio 16.7, Glucose 120 H, Calcium 9.0 05/02/22 06:25: POC Glucose 141 H 05/02/22 11:01: POC Glucose 216 H 05/02/22 16:02: POC Glucose 174 H Physical Exam Narrative alert, oriented x3 and no apparent distress Constitutional Narrative: Patient appears older than her stated age HEENT head/scalp atraumatic and moist oral mucous membranes Head and Scalp: normocephalic Eyes EOMs intact bilaterally and conjunctivae normal Neck supple and no JVD Resp normal respiratory effort, no retractions, no use of accessory muscles and clear to auscultation bilaterally Cardio regular rate, regular rhythm, S1 normal heart sound, S2 normal heart sound, no murmurs and no rub Extremity normal to inspection and no clubbing, cyanosis or edema Neuro CN's II-XII intact bilaterally, moves all extremities and no focal motor deficits Sensorium / Orientation: awake, oriented to person and oriented to place Psych Patient has flat affect Const alert, oriented x3 and no apparent distress Constitutional Narrative: Patient appears older than her stated age HEENT head/scalp atraumatic and moist oral mucous membranes Eyes EOMs intact bilaterally and conjunctivae normal Neck supple and no JVD Resp normal respiratory effort, no retractions, no use of accessory muscles and clear to auscultation bilaterally Cardio regular rate, regular rhythm, S1 normal heart sound, S2 normal heart sound, no murmurs and no rub Extremity normal to inspection and no clubbing, cyanosis or edema Neuro CN's II-XII intact bilaterally, moves all extremities and no focal motor deficits Sensorium / Orientation: awake, oriented to person and oriented to place Psych affect normal Assessment & Plan Assessment/Plan (1) Debility: PLAN: Plan 1. Uxogcgumnbty-wgsjjkcn-iwgrxggx to monitor blood sugars, sliding scale insulin will be given as needed #2 acute debility-PT and OT are seeing the patient, she will need at least short-term placement in a residential facility. #3 cerebrovascular disease-patient is on Plavix #4 essential hypertension-continue present blood pressure medications #5 type 2 diabetes-patient is on sliding scale insulin administration #6 hypokalemia-resolved at this time #7 chronic kidney disease stage IIIb-complicates care, recovery, and prognosis Charges/Coding Visit Charges OBSV E&M: 35593 Subsequent observation care L2
[2022-05-02 21:00] VITALS: BP 121/81; PULSE 64; RESP 16; TEMP 36.7; O2SAT 93
[2022-05-02 23:30] LABS: Bedside Glucose 263 mg/dL (74-106)
[2022-05-03 03:00] VITALS: BP 111/76; PULSE 73; RESP 16; TEMP 36.8; O2SAT 99
[2022-05-03] MEDS: Levothyroxine 100 MCG Tablet PO (06:19)
[2022-05-03 07:10] LABS: Bedside Glucose 132 mg/dL (74-106)
[2022-05-03 07:27] VITALS: O2SAT 96
[2022-05-03 09:00] VITALS: PULSE 80; RESP 18
--- NOTE | 2022-05-03 09:32 | CASEMGMT ---
Social Work Note SW updated physician that pt can discharge to SNF today. Pt to discharge today. LUIS ARMANDO placed a call to Madison at [facility] and left message updating her pt to discharge today. Plan: [facility] skilled today. Pham Bae AUTO BODY PAINTER, DOG TRAINER
[2022-05-03] MEDS: Potassium Chloride Oral Tablet 10 MEQ PO (09:41)
[2022-05-03] MEDS: Calcium Carbonate 500 MG Tablet PO (09:41)
[2022-05-03] MEDS: Anastrozole 1 MG TABLET PO (09:41)
[2022-05-03] MEDS: Carvedilol 12.5 MG Tablet PO (09:41)
[2022-05-03] MEDS: Menthol/Lanolin/Calamine/Znox 113 GM Tube 1 APPLIC TOPICAL (09:42)
[2022-05-03] MEDS: Doxazosin 1 MG Tablet 2 MG PO (09:42)
[2022-05-03] MEDS: Enoxaparin 30 MG/0.3 ML Syringe SC (09:42)
[2022-05-03] MEDS: Cholecalciferol (VIT D3) 25 MCG TABLET (1,000 UNITS) 50 MCG PO (09:43)
[2022-05-03] MEDS: amLODIPine 10 MG Tablet PO (09:43)
[2022-05-03] MEDS: Clopidogrel Bisulfate 75 MG Tablet PO (09:43)
[2022-05-03] MEDS: Lisinopril 10 MG Tablet 30 MG PO (09:43)
[2022-05-03] MEDS: Citalopram 10 MG Tablet PO (09:44)
--- NOTE | 2022-05-03 11:06 | PCM.TXEXTCAR ---
Diet Diet Order/Speech Therapy: 04/29/22 05:00 Diet: Consistent Carb - Calorie Controlled Food consistency:: Regular Liquid Consistency:: Regular/Thin Type of Dietary Supplement:: Ensure Pudding Is pt able to select menu?: Yes Diet Comments: chocolate w/ lunch and dinner How many daily calories?: 1600 calorie Routine Orders/Code Status Code Status: Full Code Wound(s) right knee: Wound Type: Abrasion Therapies Weight Bearing: Full weight bearing Physical Therapy: Eval and Treat Occupational Therapy: Eval and Treat Problem/Diagnosis (1) Debility: Status: Acute Code(s): R53.81 - Other malaise Plan 1. Gdjyebrcyavb-nawirboy-wleapjoi to monitor blood sugars, sliding scale insulin will be given as needed #2 acute debility-PT and OT are seeing the patient, she will need at least short-term placement in a residential facility. #3 cerebrovascular disease-patient is on Plavix #4 essential hypertension-continue present blood pressure medications #5 type 2 diabetes-patient is on sliding scale insulin administration #6 hypokalemia-resolved at this time #7 chronic kidney disease stage IIIb-complicates care, recovery, and prognosis Allergies/Procedures Done in Hospital Allergies aspirin Allergy (Unknown, Verified 04/28/22 08:07) Nausea albuterol Adverse Reaction (Verified 04/28/22 08:07) I GET VERY SHAKEY/HYPERVENTILATING Penicillins Adverse Reaction (Verified 04/28/22 08:07) Nausea/Vom/Diarrhea Procedures: None Type of Care/Length of Stay Estimated LOS: Convalescent Care Less Than 30 days Type of Care Needed: Skilled Rehab Potential: Good Prognosis: Good Additional Orders/Day of Discharge H&P will serve as current which was dated: 04/29/22 Day of Discharge: 05/03/22 Dietary and Speech Recommendations Dietitian Recommendations/Changes: Will change diet to 1600 omid Consistent CHO diet to better meet est nutritional needs Will continue ONS w/ medpass as ordered Provide written diet education material for pt spouse at pt bedside d/t he cooks and does SMBG for pt. Discharge Plan Admission Admit Date/Time: 04/29/22 03:48 Primary Reason for Your Visit: debility, hypoglycemia Attending Provider: Johnnie Funes Primary Care Provider: Tera Butts Consulting Providers: Valentino Benentt Discharge Orders/Prescriptions Prescriptions: New acetaminophen [Tylenol] 325 mg Tablet 650 mg PO Q6H PRN PRN (Reason: Pain Score 1-10/Temp > 100.7 F) Qty: 0 0RF Continued calcium 600 mg Capsule 600 mg PO DAILY metformin 500 mg tablet 1 tab PO DAILY Label Comments: TAKE 1 TABLET BY MOUTH TWICE DAILY WITH MEALS FOR DIABETES anastrozole 1 mg tablet 1 tab PO DAILY Label Comments: TAKE 1 TABLET BY MOUTH DAILY check with primary doctor carvedilol 12.5 mg tablet 1 tab PO DAILY Label Comments: TAKE 1 TABLET BY MOUTH EVERY 12 HOURS WITH FOOD. check with primary doctor citalopram 10 mg tablet 1 tab PO DAILY Label Comments: TAKE 1 TABLET DAILY clopidogrel 75 mg tablet 1 tab PO DAILY Label Comments: TAKE 1 TABLET BY MOUTH EVERY DAY for clot prevention levothyroxine 100 mcg tablet 1 tab PO DAILY amlodipine 10 mg tablet 1 tab PO DAILY Label Comments: TAKE 1 TABLET BY MOUTH DAILY FOR BLOOD PRESSURE lisinopril 10 mg tablet 3 tab PO DAILY Label Comments: TAKE 3 TABLETS BY MOUTH DAILY FOR 30 DAYS doxazosin 2 mg tablet 1 tab PO DAILY Label Comments: TAKE 1 TABLET BY MOUTH DAILY check with primary doctor cholecalciferol (vitamin D3) 50 mcg (2,000 unit) tablet 1 tab PO DAILY Label Comments: TAKE 1 TABLET BY MOUTH EVERY DAY for bones Discontinued potassium chloride 10 mEq Tablet Extended Release 10 meq PO DAILY cephalexin 500 mg capsule 500 mg PO Q12H Rx Instructions: started 04/23 Referrals / Follow Up: Tera Butts MD [Primary Care Provider] - Disposition Disposition (needs filled in before D/C Order can be placed): Long Term Facility
--- NOTE | 2022-05-03 11:17 | PCM.DC.SUM ---
Providers Date of Admission: 04/29/22 Date of Discharge: 05/03/22 Primary Care Physician: Dr. Tera Butts MD Reason For Visit: FALL Diagnosis Discharge Diagnosis (1) Debility: Status: Acute Code(s): R53.81 - Other malaise Plan 1. Megzkkxpbesz-ocsncchx-gvsokdon to monitor blood sugars, sliding scale insulin will be given as needed #2 acute debility-PT and OT are seeing the patient, she will need at least short-term placement in a halfway facility. #3 cerebrovascular disease-patient is on Plavix #4 essential hypertension-continue present blood pressure medications #5 type 2 diabetes-patient is on sliding scale insulin administration #6 hypokalemia-resolved at this time #7 chronic kidney disease stage IIIb-complicates care, recovery, and prognosis Medications at Discharge Home Medications amlodipine 10 mg tablet 1 tab PO DAILY blood pressure 04/29/22 anastrozole 1 mg tablet 1 tab PO DAILY chemo 04/29/22 calcium 600 mg capsule 600 mg PO DAILY supplement 04/29/22 carvedilol 12.5 mg tablet 1 tab PO DAILY blood pressure 04/29/22 cholecalciferol (vitamin D3) 50 mcg (2,000 unit) tablet 1 tab PO DAILY supplement 04/29/22 citalopram 10 mg tablet 1 tab PO DAILY depression 04/29/22 clopidogrel 75 mg tablet 1 tab PO DAILY antiplatelet 04/29/22 doxazosin 2 mg tablet 1 tab PO DAILY urinary 04/29/22 levothyroxine 100 mcg tablet 1 tab PO DAILY thyroid 04/29/22 lisinopril 10 mg tablet 3 tab PO DAILY blood pressure 04/29/22 metformin 500 mg tablet 1 tab PO DAILY diabetes 04/29/22 acetaminophen 325 mg tablet (Tylenol) 650 mg PO Q6H PRN PRN Pain Score 1-10/Temp > 100.7 F #0 tabs 05/03/22 Hospital Course Operations None Procedures None Summary of Care Provided Minutes Spent on Discharge: 31 Hospital Course: This 67-year-old white female was seen in the emergency room at [facility] after sustaining a fall at home and landing on her right hip, EMS noted her blood sugar to be low at 43, at the time of the examination in the ER her blood sugar was 29. An IV was established and an amp of D50 was given to the patient, x-rays of the pelvis and right hip revealed her hardware to be intact, there were no new fractures noted to be present, CT scan of the head and C-spine revealed no acute injury, patient's white blood cell count was 16.3, creatinine was 1.67 similar to her baseline. Family arrived in the emergency room and they were concerned that the patient's was not able to appropriately care for her and voiced their opinion that she should be admitted to the hospital for transition to halfway facility. [facility] she was seen in consultation by PT and OT, it was felt that she would benefit from halfway home placement and the patient agreed to this. On 05/03/2022, patient was seen and examined: On examination she appeared in good health and spirits, she does not appear to be in any distress. Vital signs as documented. Skin warm and dry and without overt rashes. Neck without JVD, thyroid appears normal, trachea is midline, neck is supple. Lungs clear, normal air movement was noted. Heart exam notable for regular rhythm, normal sounds and absence of murmurs, rubs or gallops. Abdomen unremarkable and without evidence of organomegaly, masses, or abdominal aortic enlargement, bowel sounds are present in all 4 quadrants, no abdominal tenderness was noted. Extremities nonedematous, no cyanosis was noted, no clubbing was noted. Neuro: Cranial nerves II through XII are grossly intact, no focal motor deficits were noted, sensation to light touch and pinprick is intact, motor exam 5/5 throughout. Psych: Patient is alert and oriented x3, she does not appear anxious or depressed, she does not appear agitated. Patient appeared to be stable for discharge on 05/03/2022 and was discharged to a local extended care facility for inpatient rehab services. Weight / BMI Weight Weight: 60 kg Body Mass Index (BMI) 25.8 ABG / Lab / Microbiology Data Result Diagrams: 04/29/22 06:46 05/02/22 05:40 Laboratory: Laboratory Results - last 24 hr 05/02/22 11:01: POC Glucose 216 H 05/02/22 16:02: POC Glucose 174 H 05/02/22 22:13: POC Glucose 263 H 05/03/22 06:18: POC Glucose 132 H Meaningful Use Info Meaningful Use Diagnoses (Choose all that apply): None applicable Discharge Plan Admission Admit Date/Time: 04/29/22 03:48 Primary Reason for Your Visit: debility, hypoglycemia Attending Provider: Johnnie Funes Primary Care Provider: Tera Butts Consulting Providers: Valentino Bennett Discharge Orders/Prescriptions Prescriptions: New acetaminophen [Tylenol] 325 mg Tablet 650 mg PO Q6H PRN PRN (Reason: Pain Score 1-10/Temp > 100.7 F) Qty: 0 0RF Continued calcium 600 mg Capsule 600 mg PO DAILY metformin 500 mg tablet 1 tab PO DAILY Label Comments: TAKE 1 TABLET BY MOUTH TWICE DAILY WITH MEALS FOR DIABETES anastrozole 1 mg tablet 1 tab PO DAILY Label Comments: TAKE 1 TABLET BY MOUTH DAILY check with primary doctor carvedilol 12.5 mg tablet 1 tab PO DAILY Label Comments: TAKE 1 TABLET BY MOUTH EVERY 12 HOURS WITH FOOD. check with primary doctor citalopram 10 mg tablet 1 tab PO DAILY Label Comments: TAKE 1 TABLET DAILY clopidogrel 75 mg tablet 1 tab PO DAILY Label Comments: TAKE 1 TABLET BY MOUTH EVERY DAY for clot prevention levothyroxine 100 mcg tablet 1 tab PO DAILY amlodipine 10 mg tablet 1 tab PO DAILY Label Comments: TAKE 1 TABLET BY MOUTH DAILY FOR BLOOD PRESSURE lisinopril 10 mg tablet 3 tab PO DAILY Label Comments: TAKE 3 TABLETS BY MOUTH DAILY FOR 30 DAYS doxazosin 2 mg tablet 1 tab PO DAILY Label Comments: TAKE 1 TABLET BY MOUTH DAILY check with primary doctor cholecalciferol (vitamin D3) 50 mcg (2,000 unit) tablet 1 tab PO DAILY Label Comments: TAKE 1 TABLET BY MOUTH EVERY DAY for bones Discontinued potassium chloride 10 mEq Tablet Extended Release 10 meq PO DAILY cephalexin 500 mg capsule 500 mg PO Q12H Rx Instructions: started 04/23 Referrals / Follow Up: Tera Butts MD [Primary Care Provider] - Disposition Disposition (needs filled in before D/C Order can be placed): [facility] Facility Charges/Coding Visit Charges OBSV E&M: 20018 Observation care discharge
--- NOTE | 2022-05-03 11:27 | CASEMGMT ---
Addendum entered by Pham Bae 05/03/22 12:00: LUIS ARMANDO received call from Madison at [facility] stating they will need a COVID test and request transportation to be arranged for after 3:00pm. Original Note: Social Work Note Pt's Cullen is currently at [facility] requesting update on pt. SW updated Cullen that pt is going to [facility], SW just waiting on paperwork and then will arrange transportation. Cullen states to just let him know when pt discharges. LUIS ARMANDO placed a call to Madison at [facility] and left message asking if pt needs a COVID test. Pham Bae DIRECTOR GLOBAL SALES, SURVEYOR
[2022-05-03 12:10] LABS: Bedside Glucose 220 mg/dL (74-106)
[2022-05-03 14:59] VITALS: BP 122/71; PULSE 83; RESP 18; TEMP 36.7; O2SAT 97
--- NOTE | 2022-05-03 15:13 | NURSING ---
report called to ale @ [facility]
--- NOTE | 2022-05-03 17:10 | CASEMGMT ---
Social Work Note SW completed PAS/RR. SW faxed completed discharge paperwork to [facility] including transfer to extended care facility, signed medication list, any scripts, COVID test/tool, and PAS/RR. Original in SNF folder and copy on pt's chart. SW spoke with RN, pt to transport via cot and will need oxygen for transport. SW accessed trip assist and arranged transportation via cot for 3:30pm. Transportation form completed and placed on SNF folder and copy on pt's chart. SW updated RN on transportation time. SW placed a call to Madison at [facility] and updated her on transportation time. SW placed a call to pt's Cullen and updated him on discharge and transportation time. Cullen states understanding, states he will see pt Friday at [facility]. . SW in to speak with pt. SW updated pt that she will discharge to [facility] today at 3:30pm. Pt initially states ok and then states she wants to go home. SW spoke with pt about how it is not safe for her to go home at this time and pt's family is agreeable to pt going to SNF. Pt states that she wants to see her family. SW informed pt that her family will be able to visit her at [facility] and that her is planning on seeing her Friday at [facility]. Pt states understanding. SW familiar with pt from previous visits and this worker had made an APS referral in the past on pt. LUIS ARMANDO placed a call to Erlinda at [facility] and left message updating her that pt is back at [facility] and will be discharged to [facility] today. Pham Bae ASIAN STUDIES PROFESSOR, PETROLOGIST
== END 2022-05-03 17:02 ==
LOC: ED 03:44 → MS3 05:33
PROVIDERS: Admitting Provider Hospitalist; Emergency Provider Emergency Medicine; PCP Internal Medicine; Visit Provider Internal Medicine
DX: R53.81 Other malaise (principal); J44.9 Chronic obstructive pulmonary disease, unspecified; E11.22 Type 2 diabetes mellitus with diabetic chronic kidney disease; E11.649 Type 2 diabetes mellitus with hypoglycemia without coma; N18.32 Chronic kidney disease, stage 3b; R53.1 Weakness; E87.6 Hypokalemia; I12.9 Hypertensive chronic kidney disease with stage 1 through stage 4 chronic kidney disease, or unspecified chronic kidney disease; F17.210 Nicotine dependence, cigarettes, uncomplicated; Z79.899 Other long term (current) drug therapy; Z79.890 Hormone replacement therapy; Z79.84 Long term (current) use of oral hypoglycemic drugs; E03.9 Hypothyroidism, unspecified; G47.30 Sleep apnea, unspecified
CPT/HCPCS: 36415; 70450; 71045; 72125; 73502; 80048; 80076; 81001; 82962; 83036; 85025; 87426; 96372; 96374; 96376; 97110; 97116; 97162; 97166; 97530; 97535; 97802; 99218; 99285; 99406; A4216; G0378

== ENCOUNTER 2022-12-05 07:58 | Emergency (ER) | payer MEDICAID, SELFPAY ==
[2022-12-05 07:59] VITALS: BP 128/68; PULSE 62; RESP 16; TEMP 36.2; O2SAT 95; BMI 28.1
--- NOTE | 2022-12-05 08:37 | EKG12_ITS ---
Test Reason : PRE OP Blood Pressure : / mmHG Vent. Rate : 058 BPM Atrial Rate : 000 BPM P-R Int : 000 ms QRS Dur : 082 ms QT Int : 472 ms P-R-T Axes : 000 -02 255 degrees QTc Int : 463 ms Ectopic Atrial Bradycardia Low voltage QRS (Limb Leads) Nonspecific T wave abnormality Abnormal ECG Confirmed by KATHARINA LEO, MYRON ([id number]), society editor KENDELL FERNÁNDEZ ([id number]) on 12/09/2022 11:02:47 AM Referred By: Confirmed By:MYRON POSADAS MD
[2022-12-05 09:13] LABS: Absolute Lymphocyte Count 2.74 X10^3/uL (0.83-4.51); Absolute Neutrophil Count 6.6 X10^3/uL (2.0-7.7); Basophil# 0.07 X10^3/uL; Basophil% 0.7 % (0-1); Eosinophil# 0.28 X10^3/uL; Eosinophils% 2.7 % (0-5); Hematocrit 35.4 % (37-47); Hemoglobin 10.8 g/dL (12.0-15.0); Lymphocyte # 2.74 X10^3/ul (0.83-4.51); Lymphocyte % 26.4 % (19-41); Mean Corp Hgb Conc 30.5 g/dL (32-36); Mean Corpuscular Hgb 26.2 pg (27.0-32.0); Mean Corpuscular Volume 85.9 fL (81-99); Mean Platelet Vol. 10.9 fl (6.2-12.0); Monocyte# 0.61 X10^3/uL; Monocyte% 5.9 % (0-10); NRBC Flagged by Analyzer 0 % (0-5); Neutrophil # 6.63 X10^3/uL (2.7-7.7); Neutrophil % 63.8 % (47-70); Platelet Count 298 K/mm3 (150-450); RBC Distribution Width CV 15.7 % (11.6-14.6); RBC Distribution Width SD 49.1 fl (35.1-43.9); Red Blood Count 4.12 M/mm3 (4.2-5.4); White Blood Count 10.4 K/mm3 (4.4-11.0)
[2022-12-05 09:43] LABS: ALB/GLOB Ratio 0.8 RATIO (0.9-2.4); AST(SGOT) 12 U/L (15-37); Alanine Aminotransfer ALT/SGPT 15 U/L (13-56); Albumin, Serum 3.2 g/dL (3.2-5.0); Alkaline Phosphatase 206 U/L (45-117); Anion Gap 5 (5-15); BUN 36 mg/dL (7-18); BUN/Creat Ratio 22.4 RATIO (10-20); Calcium,Total 9.6 mg/dL (8.5-10.1); Chloride 113 mmol/L (98-107); Creatinine, Serum 1.61 mg/dL (0.55-1.02); EST Glomerular Filtration Rate 34 mL/min (>60); Est Glom Filt Rate - Afr Amer 41 mL/min (>60); Estimated Creatinine Clearance 24.02 ml/min; Globulin 3.9 g/dL (2.2-4.2); Glucose 103 mg/dL (74-106); Potassium 4.1 mmol/L (3.5-5.1); Protein, Total 7.1 g/dL (6.4-8.2); Sodium Level 144 mmol/L (136-145); Troponin-I HS 7 pg/mL (3.0-54.0)
[2022-12-05 09:50] LABS: International Normalized Ratio 1.1; Prothrombin Time (Protime)PT. 13.7 SECONDS (11.7-14.9)
[2022-12-05 09:51] LABS: Partial Thromboplast Time 30.7 Seconds (24.1-36.2)
--- NOTE | 2022-12-05 10:15 | RAD_ITS ---
STUDY: X-RAY CHEST REASON FOR EXAM: Female, 67 years old. Cough TECHNIQUE: Single AP portable view of the chest. COMPARISON: Comparison is made with prior study dated April 29, 2022. FINDINGS: The patient is status post left mastectomy and left axillary node dissection. Hyperinflation. The lungs are clear. There is no demonstrated pleural abnormality. Normal size heart. Normal mediastinum and jason. Normal visualized pulmonary arteries. Normal visualized aortic arch and descending thoracic aorta. Normal visualized thoracic spine. Normal visualized ribs, clavicles, and shoulders. There is no demonstrated abnormality of the visualized soft tissue structures of the upper abdomen. RAD/Chest 1 View (Portable) IMPRESSION: Hyperinflation. The lungs are clear. Electronically Signed: Billy Heath MD at 10:40 EST ,
--- NOTE | 2022-12-05 10:15 | RAD_ITS ---
STUDY: X-RAY - PELVIS AND RIGHT HIP REASON FOR EXAM: Female, 67 years old. Injury/Pain TECHNIQUE: 3 views of the pelvis and hip. COMPARISON: Comparison is made with prior study dated April 29, 2022. FINDINGS: There is a non-specific bowel gas pattern. Normal visualized soft tissue structures. There is narrowing with cortical sclerosis and osteophyte formation of the sacroiliac joint consistent with degenerative osteoarthritic changes. Normal bilateral superior and inferior pubic rami. Normal pubic symphysis. Normal bilateral ischial tuberosities. The patient is status post open reduction internal fixation of the right intertrochanteric fracture using an intramedullary marisabel and dynamic hip screw placement. There is good alignment. Once again, there is a heterotopic ossification superior to the right femur. RAD/HIP, UNI W/ Pelvis 2-3 Views IMPRESSION: Status post ORIF of the right intratrochanteric fracture. There is been no change. Electronically Signed: Billy Heath MD at 11:11 EST ,
--- NOTE | 2022-12-05 11:17 | ED.VIS.FALL ---
HPI HPI - Fall History of Present Illness Chief Complaint: Fall Informant: patient Occured/Mechanism Occurred: Yesterday Mechanism/Context: Yes same level fall Usually ambulates: Non-Ambulatory Pain/Injury Location: Right hip Pain Location: lower extremity Quality of Pain: Stabbing Worsened by: Movement Relieved by: Nothing Associated Symptoms Associated Symptoms: Negative for Parasthesias, Weakness, Loss of function, Inability to ambulate, Loss of consciousness or Amnesia Narrative Narrative: Patient presents with right hip pain that began after a fall yesterday. Patient states she normally gets around in a wheelchair but tried to ambulate yesterday to go to the bathroom. Patient states there was no one there to help her and she fell. Patient states she landed on her right hip. Patient states she had x-rays and was told she had a hip fracture. Patient was referred to the emergency department because of this. Patient denies any head injury or loss of consciousness. Patient states her pain is worse with certain movements. Patient describes it as stabbing. Patient denies any other injuries. [facility] Medical History Acute infarct right urban radiata Arthritis Asthma Breast cancer Carpal tunnel syndrome CKD (chronic kidney disease) stage 3, GFR 30-59 ml/min Constipation COPD (chronic obstructive pulmonary disease) CVA (cerebral vascular accident) Diabetes Fall Fall Flu vaccine need Former smoker Hearing problem High blood pressure Hypertension Hypoglycemia Hypoglycemia Hypothyroidism Noncompliance Noncompliance w/medication treatment due to intermit use of medication Right hip pain Right knee pain Sleep apnea Smoker Thyroid disease Tobacco abuse Type 2 diabetes mellitus Vertigo Vision problems Home Medications amlodipine 10 mg tablet 1 tab PO DAILY blood pressure 04/29/22 [History Last Taken Unknown] anastrozole 1 mg tablet 1 tab PO DAILY chemo 04/29/22 [History Last Taken Unknown] calcium 600 mg capsule 600 mg PO DAILY supplement 04/29/22 [History Last Taken Unknown] carvedilol 12.5 mg tablet 1 tab PO DAILY blood pressure 04/29/22 [History Last Taken Unknown] cholecalciferol (vitamin D3) 50 mcg (2,000 unit) tablet 1 tab PO DAILY supplement 04/29/22 [History Last Taken Unknown] citalopram 10 mg tablet 1 tab PO DAILY depression 04/29/22 [History Last Taken Unknown] clopidogrel 75 mg tablet 1 tab PO DAILY antiplatelet 04/29/22 [History Last Taken Unknown] doxazosin 2 mg tablet 1 tab PO DAILY urinary 04/29/22 [History Last Taken Unknown] levothyroxine 100 mcg tablet 1 tab PO DAILY thyroid 04/29/22 [History Last Taken Unknown] lisinopril 10 mg tablet 3 tab PO DAILY blood pressure 04/29/22 [History Last Taken Unknown] metformin 500 mg tablet 1 tab PO DAILY diabetes 04/29/22 [History Last Taken Unknown] acetaminophen 325 mg tablet (Tylenol) 650 mg PO Q6H PRN PRN Pain Score 1-10/Temp > 100.7 F #0 tabs 05/03/22 [Rx Last Taken Unknown] Allergy/AdvReac Type Severity Reaction Status Date / Time aspirin Allergy Unknown Nausea Verified 12/05/22 08:03 albuterol AdvReac I GET VERY Verified 12/05/22 08:03 SHAKEY/HYPERVENTILATING Penicillins AdvReac Nausea/Vom/ Verified 12/05/22 08:03 Diarrhea Family History Father Cancer bone cancer Brother Heart disease Surgical History H/O mastectomy History of appendectomy History of section Social History household members: spouse Smoking Status: Current every day smoker tobacco type: cigarettes Tobacco: How many years used: 50 alcohol intake: never substance use type: marijuana and other details: smokes 4 joints a day ROS ROS ED Constitutional Constitutional ED: Denies chills or fever(s) Eyes Eyes: Denies blurry vision or change in vision ENT ENT ED: Denies rhinorrhea or sore throat Cardiovascular Cardiovascular: Denies chest pain or palpitations Respiratory/Chest Respiratory/Chest: Denies cough or dyspnea Gastrointestinal Gastrointestinal: Denies nausea or vomiting Genitourinary Genitourinary ED: Denies dysuria or hematuria Musculoskeletal Musculoskeletal: Denies back pain or neck pain Integumentary Denies abscess or rash Neurologic Neurologic: Denies headache(s) or weakness Allergic/Immunologic Allergic/Immunologic ED: Denies mouth swelling or urticaria EXAM Physical Exam Const Vital Signs: 12/05/22 07:59 Temperature 97.2 F L Temperature Source Temporal Pulse Rate 62 Respiratory Rate 16 Blood Pressure 128/68 H Blood Pressure Mean 88 Pulse Ox 95 Oxygen Delivery Method Room Air Positive well nourished and well developed General Appearance ED: well developed and NAD HEENT Reports normocephalic atraumatic Neck full ROM and no lymphadenopathy Resp normal respiratory effort and clear to auscultation bilaterally Cardio regular rate and regular rhythm GI non-tender and non-distended Palpation: soft Extremity Extremity Narrative: There is tenderness over the right hip. There is pain with internal and external rotation. There is some mild shortening of the right lower extremity. Pedal pulses are equal bilaterally. Sensation was intact to light touch bilaterally in the lower extremities. Strength is 5/5 bilaterally in the lower extremities. Neuro oriented x3, CN's II-XII intact bilaterally, moves all extremities, no focal motor deficits and no sensory deficits noted Ludin Coma Scale: document GCS findings Spontaneous Obeys Commands Oriented 15 Sensorium / Orientation: alert Motor Exam: strength 5/5 throughout Psych mental status grossly normal [facility] Lab Data Lab results narrative: CBC was reviewed and showed a mild anemia with a hemoglobin of 10.8 and hematocrit 35.4. Comprehensive metabolic profile was reviewed and showed a slightly elevated creatinine of 1.61 and a BUN of 36. These are consistent with prior results. High-sensitivity troponin was reviewed and was normal. PT with INR and PTT were reviewed and were within normal limits. Labs: Laboratory Results - last 24 hr 12/05/22 12/05/22 12/05/22 09:00 09:00 09:00 WBC 10.4 RBC 4.12 L Hgb 10.8 L Hct 35.4 L MCV 85.9 MCH 26.2 L MCHC 30.5 L RDW Std Deviation 49.1 H RDW Coeff of Chad 15.7 H Plt Count 298 MPV 10.9 Immature Gran % (Auto) 0.500 Neut % (Auto) 63.8 Lymph % (Auto) 26.4 Leslie % (Auto) 5.9 Eos % (Auto) 2.7 Baso % (Auto) 0.7 Absolute Neuts (auto) 6.6 Absolute Lymphs (auto) 2.74 Nucleated RBC % 0 PT Cancelled INR Cancelled APTT Cancelled Sodium 144 Potassium 4.1 Chloride 113 H Carbon Dioxide 26.0 Anion Gap 5 BUN 36 H Creatinine 1.61 H Estim Creat Clear Calc 24.02 Est GFR (MDRD) Af Amer 41 L Est GFR (MDRD) Non-Af 34 L BUN/Creatinine Ratio 22.4 H Glucose 103 Calcium 9.6 Total Bilirubin 0.30 AST 12 L ALT 15 Alkaline Phosphatase 206 H Troponin I High Sens 7 Total Protein 7.1 Albumin 3.2 Globulin 3.9 Albumin/Globulin Ratio 0.8 L 12/05/22 09:30 WBC RBC Hgb Hct MCV MCH MCHC RDW Std Deviation RDW Coeff of Chad Plt Count MPV Immature Gran % (Auto) Neut % (Auto) Lymph % (Auto) Leslie % (Auto) Eos % (Auto) Baso % (Auto) Absolute Neuts (auto) Absolute Lymphs (auto) Nucleated RBC % PT 13.7 INR 1.1 APTT 30.7 Sodium Potassium Chloride Carbon Dioxide Anion Gap BUN Creatinine Estim Creat Clear Calc Est GFR (MDRD) Af Amer Est GFR (MDRD) Non-Af BUN/Creatinine Ratio Glucose Calcium Total Bilirubin AST ALT Alkaline Phosphatase Troponin I High Sens Total Protein Albumin Globulin Albumin/Globulin Ratio Radiography Chest X-Ray - ED: 1 View, Read by ED Physician, Read by Radiologist and No Acute Disease X-Ray: Right Hip, Read by ED Physician, Read by Radiologist, No Fracture and DJD Diagnostic Testing: Clinical Impression(s) from Imaging Studies Chest X-Ray 12/05/22 10:15 IMPRESSION: Hyperinflation. The lungs are clear. Electronically Signed: Billy Heath MD at 10:40 EST , Hip/Pelvis X-Ray 12/05/22 10:15 IMPRESSION: Status post ORIF of the right intratrochanteric fracture. There is been no change. Electronically Signed: Billy Heath MD at 11:11 EST , Portable 1 view chest x-ray was obtained. On my independent interpretation, lung mcclure are clear. There is normal cardiac silhouette. Bony thorax is normal. There is no acute process noted. Radiologist also interpreted the x-ray and agrees. X-ray of the right hip was obtained. There are 4 views. On my independent interpretation, there is no acute fracture or dislocation. There is a prior fixation of fracture. There is no acute process noted. There are some degenerative changes. Radiologist also interpreted the x-rays and agrees. EKG Initial EKG: Attestation: I personally reviewed and interpreted this EKG as follows: Interpretation: Sinus Rhythm (58) Comments: EKG was obtained. On my independent interpretation, it showed a normal sinus rhythm with a rate of 58. VT interval, QRS interval, and QTc intervals were all normal. [place] was normal. There are no acute ST or T wave changes. Prior EKG tracings: available for review Prior: Unchanged (04/23/2022) Treatment and Re-Evaluation Narrative: Patient was advised of her findings. Patient was advised that this is most likely a contusion of her hip. Patient does not need to be admitted to the hospital. Patient will be discharged home. Patient was instructed to continue Tylenol and ibuprofen as needed for pain. Patient was instructed to follow-up with her primary care physician in 5 to 7 days. Patient understood and was agreeable with the plan. All questions were answered. Discharge Plan Triage Chief Complaint: Fall ED Provider: Howard Levy Dx/Rx/DC Orders Clinical Impression: Contusion of right hip, initial encounter, Right hip pain Instructions: ED Contusion, Lower Extremity Prescriptions: No Action calcium 600 mg Capsule 600 mg PO DAILY metformin 500 mg tablet 1 tab PO DAILY Label Comments: TAKE 1 TABLET BY MOUTH TWICE DAILY WITH MEALS FOR DIABETES anastrozole 1 mg tablet 1 tab PO DAILY Label Comments: TAKE 1 TABLET BY MOUTH DAILY check with primary doctor carvedilol 12.5 mg tablet 1 tab PO DAILY Label Comments: TAKE 1 TABLET BY MOUTH EVERY 12 HOURS WITH FOOD. check with primary doctor citalopram 10 mg tablet 1 tab PO DAILY Label Comments: TAKE 1 TABLET DAILY clopidogrel 75 mg tablet 1 tab PO DAILY Label Comments: TAKE 1 TABLET BY MOUTH EVERY DAY for clot prevention levothyroxine 100 mcg tablet 1 tab PO DAILY amlodipine 10 mg tablet 1 tab PO DAILY Label Comments: TAKE 1 TABLET BY MOUTH DAILY FOR BLOOD PRESSURE lisinopril 10 mg tablet 3 tab PO DAILY Label Comments: TAKE 3 TABLETS BY MOUTH DAILY FOR 30 DAYS doxazosin 2 mg tablet 1 tab PO DAILY Label Comments: TAKE 1 TABLET BY MOUTH DAILY check with primary doctor cholecalciferol (vitamin D3) 50 mcg (2,000 unit) tablet 1 tab PO DAILY Label Comments: TAKE 1 TABLET BY MOUTH EVERY DAY for bones acetaminophen [Tylenol] 325 mg Tablet 650 mg PO Q6H PRN PRN (Reason: Pain Score 1-10/Temp > 100.7 F) Qty: 0 0RF Primary Care Provider: Tera Butts Referrals: Tera Butts MD [Primary Care Provider] - 5-7 Days Disposition Disposition: Home, Self Care
[2022-12-05 11:43] VITALS: BP 130/72; PULSE 75; RESP 16; O2SAT 95
== END 2022-12-05 12:34 | disposition home or self-care (01) ==
PROVIDERS: Emergency Provider Emergency Medicine; PCP Internal Medicine; Visit Provider Emergency Medicine
DX: S70.01XA Contusion of right hip, initial encounter (principal); J44.9 Chronic obstructive pulmonary disease, unspecified; E11.22 Type 2 diabetes mellitus with diabetic chronic kidney disease; N18.30 Chronic kidney disease, stage 3 unspecified; I12.9 Hypertensive chronic kidney disease with stage 1 through stage 4 chronic kidney disease, or unspecified chronic kidney disease; F17.210 Nicotine dependence, cigarettes, uncomplicated; W18.30XA Fall on same level, unspecified, initial encounter
CPT/HCPCS: 71045; 73502; 80053; 84484; 85025; 85610; 85730; 93005; 99284; A4216

== ENCOUNTER → 2023-02-17 | Outpatient (CLI) | payer MEDICAID, SELFPAY ==
--- NOTE | 2023-02-17 14:02 | ST.MBS ---
Modified Barium Swallow - Patient Information Study Date: 02/17/23 Study Time: 12:50 Direct Billable Minutes: 85 Total Minutes procedure & reportin Diagnosis: Dysphagia (R13.10) Referring Physician: Allen Obrien Reason for Referral: Objectively assess swallow function, assess risk for aspiration, and determine recommendations for least restrictive diet textures and compensatory strategies to improve safety of swallow. Medical History: PMH: Acute infarct right urban radiata, CKD, breast cancer, COPD, diabetes, HTN, DM type II, former smoker (SEE EMR for full PMH). [facility] called [facility] living, patient is currently on a mechanical soft texture / thin liquid diet. Patient unable to provide much additional history regarding swallowing difficulty; however, she did mention requiring chopped meats. Current Diet Ordered: Mechanical soft / Thin liquids Dentition: Upper Dentures, Lower Dentures Mental Status: Impaired - Poor historian, required frequent cues to maintain appropriate posture for optimal imaging of swallow function Respiratory Status: Oxygenating on Room Air - Penetration-Aspiration Scale Penetration-Aspiration Scale: OBJECTIVE ASSESSMENT OF SWALLOW FUNCTION (QUANTITATIVE ? PER TRIAL): PENETRATION / ASPIRATION SCALE (MCNEAL): 1 = does not enter airway 2 = enters airway/above vocal folds/ejected 3 = enters airway/above vocal folds/not ejected 4 = enters airway/contacts vocal folds/ejected 5 = enters airway/contacts vocal folds/not ejected 6 = enters airway/below vocal folds/ejected 7 = enters airway/below vocal folds/not ejected despite effort 8 = enters airway/below vocal folds/no effort VIDEOFLOROSCOPIC SCALE SCORE (MCNEAL): Grade I = aspiration of material that has penetrated into the laryngeal vestibule, intact cough reflex Grade II = aspiration < 10 % of the bolus, intact cough reflex Grade III = aspiration of < 10 % of the bolus, reduced cough reflex or aspiration of > 10 % of the bolus, intact cough reflex Grade IV = aspiration of > 10 % of the bolus, reduced cough reflex - Penetration-Aspiration Scale Score Thin Liquid via teaspoon Result: 1= does not enter airway Thin Liquid via small single sip from cup Result: 2= enter airway/above vocal folds/ejected [place] Thick Liquid via small single sip from cup Result: 1= does not enter airway Pudding via teaspoon with esophageal screen Result: 1= does not enter airway 1/4 Cookie Result: 1= does not enter airway Thin Liquid via single sip from straw Result: 1= does not enter airway - Oral Phase Labial Seal: No Labial Escape Tongue Control During Bolus Hold: Posterior escape of greater than half of bolus - pudding to pyriforms Bolus Preparation/Mastication: Slow prolonged chewing/mashing with complete recollection Bolus Transport/Lingual Motion: Repetitive/disorganized tongue motion - lingual pumping Oral Residue: Residue collection on oral structures - pudding - Pharyngeal Phase Initiation of Pharyngeal Swallow: Bolus head in pyriforms Soft Palate Elevation: Trace column of contrast/air between soft palate and pharyngeal wall Laryngeal Elevation: Comp. Superior move thyroid cart w/comp. apprx arytenoid cart-epig pet Anterior Hyoid Excursion: Partial anterior movement Epiglottic Movement: Partial inversion Laryngeal Vestibule Closure at Height of Swallow: Incomplete; narrow column of air/contrast in laryngeal vestibule Pharyngeal Stripping Wave: Present - complete Pharyngoesophageal Segment Opening: Complete distension and complete duration; no obstruction of flow Tongue Base Retraction: Trace column of contrast between tongue base & post. pharyngeal wall Pharyngeal Residue: Trace residue within or on pharyngeal structures - Esophageal Phase Esophageal Clearance: Complete clearance - Diagnosis/Impression Diagnosis: Mild oropharyngeal phase dysphagia (R13.12) Impression: The oral phase is primarily marked by... -Decreased bolus control with >1/2 of the bolus spilling posteriorly to the pyriforms prior to swallow onset observed with pudding and thin by cup especially. -Lingual pumping observed with A-P transport of cookie. -Prolonged but adequate mastication of cookie. Patient requested to chew 1/4 cookie as opposed to 1/2 cookie due to preference for smaller bite. The pharyngeal phase is primarily marked by... -Mildly decreased airway closure during the swallow due to partial anterior hyoid excursion and partial epiglottic inversion. -Delayed swallow onset (and decreased bolus control mentioned above) contributed to laryngeal penetration of thin liquid via cup. Laryngeal penetration fully ejected after the swallow. No aspiration was observed during the study. - Recommendations Diet: Thin Liquids - Easy to Chew textures (IDDSI Level 7), Minced and moist textured meats (IDDSI Level 5) Compensatory Strategies: Small Bites, Small Sips, Slow Rate - Bites and sips one at a time, Sitting upright, Assist with verbal cues to use recommended strategies Supervision: 1:1 Close Supervision - Consider decreased supervision needs if patient is able to follow recommended aspiration precautions Recommend Repeat Modified Barium Swallow: TBD Need for Skilled Speech Therapy Services: Yes Comment: Will recommend the patient for dysphagia therapy to address mild deficits in oropharyngeal swallow function. Will recommend the patient for oropharyngeal strengthening to improve lingual control and coordination, swallow onset, and hyoid excursion (lingual resistance, lingual coordination, CTAR, and Jerardo). The patient would benefit from thorough education regarding diet recommendations and recommended compensatory strategies. Education Completed: 1. Described result of evaluation., 7. Pt requires further education on strategies & risks. - Status Active ST Patient: Active - Contact Information [facility] Speech Therapy:: Lauren Pulido M.A. [facility] Speech-Language Pathologist [facility] [address] [place] [address] [email or web address] [phone] 02/17/23 16:09
== END | disposition home or self-care (01) ==
LOC: RAD 12:14
PROVIDERS: PCP Internal Medicine; Referring Provider Family Medicine; Visit Provider Family Medicine
DX: R13.10 Dysphagia, unspecified (principal)
CPT/HCPCS: 74230; 92611

== ENCOUNTER 2024-06-17 18:13 | Emergency (ER) | payer MEDICAID, SELFPAY ==
[2024-06-17] VITALS (10 sets, daily range): BP systolic 100–136; BP diastolic 54–96; PULSE 62–99; RESP 12–25; TEMP 36.6–38.5; O2SAT 92–99; BMI 28.8
--- NOTE | 2024-06-17 18:44 | EKG12_ITS ---
Test Reason : DYSRHYTHMIA Blood Pressure : / mmHG Vent. Rate : 082 BPM Atrial Rate : 082 BPM P-R Int : 156 ms QRS Dur : 074 ms QT Int : 378 ms P-R-T Axes : 067 -16 -86 degrees QTc Int : 441 ms Normal sinus rhythm Low voltage QRS Septal infarct , age undetermined ST & T wave abnormality, consider lateral ischemia Abnormal ECG Confirmed by Cullen Lopez ([id number]), purchase request editor CARLOS SNELL ([id number]) on 06/21/2024 9:39:33 AM Referred By: Confirmed By:Cullen Lopez
--- NOTE | 2024-06-17 18:46 | EDS_ITS ---
HPI History of Present Illness Chief Complaint: Shortness of Breath Informant: patient, EMS and SNF Narrative Narrative: 69-year-old female [facility] chief complaint of COVID-19 and hypoxia. Patient has multiple medical problems including prior stroke COPD diabetes remote history of breast cancer who states that on Friday she felt ill with cough headache and fever. She tested positive for COVID-19 at the SNF. She states she really has not had much appetite. She has not really gotten out of bed. At baseline she will occasionally ambulate with assistance but spends most of her time in a wheelchair. She states that she has been trying to drink fluids today. She states that she does not normally wear oxygen. [facility] Medical History Smoker Fall Hypoglycemia Hypoglycemia CKD (chronic kidney disease) stage 3, GFR 30-59 ml/min Former smoker Sleep apnea COPD (chronic obstructive pulmonary disease) Tobacco abuse Right knee pain Noncompliance w/medication treatment due to intermit use of medication CVA (cerebral vascular accident) Vertigo Constipation Flu vaccine need Noncompliance Hypertension Right hip pain Acute infarct right urban radiata Fall Type 2 diabetes mellitus Hypothyroidism Vision problems Thyroid disease High blood pressure Hearing problem Diabetes Carpal tunnel syndrome Breast cancer Asthma Arthritis Home Medications ?Medication ?Instructions ?Recorded ?Last Taken ?Type amlodipine 10 mg tablet 1 tab PO DAILY blood pressure 04/29/22 Unknown History carvedilol 12.5 mg tablet 1 tab PO DAILY blood pressure 04/29/22 Unknown History cholecalciferol (vitamin D3) 50 1 tab PO DAILY supplement 04/29/22 Unknown History mcg (2,000 unit) tablet citalopram 10 mg tablet 1 tab PO DAILY depression 04/29/22 Unknown History clopidogrel 75 mg tablet 1 tab PO DAILY antiplatelet 04/29/22 Unknown History doxazosin 2 mg tablet 1 tab PO DAILY urinary 04/29/22 Unknown History insulin glargine 100 unit/mL (3 24 unit subcut QHS 12/19/22 Unknown History mL) subcutaneous pen (Basaglar KwikPen U-100 Insulin) acetaminophen 325 mg tablet 650 mg PO Q6H PRN Pain Score 06/17/24 Unknown History (Tylenol) 1-10/Temp > 100.7 F anastrozole 1 mg tablet 1 mg PO DAILY 06/17/24 Unknown History bisacodyl 10 mg rectal suppository 10 mg TN DAILY PRN constipation 06/17/24 Unknown History calcium carbonate (Calcium 500) 500 mg PO DAILY 06/17/24 Unknown History guaifenesin 600 mg tablet, 1,200 mg PO BID PRN congestion 06/17/24 Unknown History extended release 12 hr (Mucinex) levothyroxine 75 mcg tablet 75 mcg PO DAILY 06/17/24 Unknown History lisinopril 30 mg tablet 30 mg PO DAILY 06/17/24 Unknown History magnesium hydroxide 400 mg/5 mL 30 ml PO DAILY PRN constipation 06/17/24 Unknown History oral suspension (Milk of Magnesia) nirmatrelvir 150 mg-ritonavir 100 See Rx Instructions PO .COMPLEX 06/17/24 Unknown Rx mg tablets in a dose pack #20 tabs (Paxlovid) ondansetron HCl 4 mg tablet 4 mg PO Q6H PRN nausea and vomiting 06/17/24 Unknown History trazodone 50 mg tablet 50 mg PO QHS 06/17/24 Unknown History Allergy/AdvReac Type Severity Reaction Status Date / Time aspirin Allergy Unknown Nausea Verified 06/17/24 18:14 albuterol AdvReac I GET VERY Verified 06/17/24 18:14 SHAKEY/HYPERVENTILATING Penicillins AdvReac Nausea/Vom/ Verified 06/17/24 18:14 Diarrhea Family History Father Cancer bone cancer Brother Heart disease Surgical History History of section H/O mastectomy History of appendectomy Social History household members: spouse Smoking Status: Former smoker Tobacco: How many years used: 50 alcohol intake: never substance use type: marijuana and other details: smokes 4 joints a day ROS ROS ED Constitutional Constitutional ED: Reports chills, fever(s) and sweats; Denies weight loss Eyes Eyes: Denies change in vision or diplopia ENT ENT ED: Denies ear pain, rhinorrhea or sore throat Cardiovascular Cardiovascular: Denies chest pain, orthopnea, palpitations or racing heartbeat Respiratory/Chest Respiratory/Chest: Reports cough and dyspnea; Denies orthopnea Gastrointestinal Gastrointestinal: Denies abdominal pain, diarrhea, nausea or vomiting Genitourinary Genitourinary ED: Denies dysuria, hematuria or urinary frequency Musculoskeletal Musculoskeletal: Reports myalgias; Denies arthralgias Integumentary Denies abscess or rash Neurologic Neurologic: Reports headache(s); Denies weakness Psychiatric Psychiatric: Denies anxiety, depression, suicidal ideation or suicidal thoughts Endocrine Endocrinology: Denies polydipsia, polyphagia or polyuria Allergic/Immunologic Allergic/Immunologic ED: Denies mouth swelling, tongue swelling or urticaria EXAM Physical Exam Const Vital Signs: 06/17/24 18:14 06/17/24 18:17 06/17/24 18:18 Temperature 101.3 F H 101.3 F H Temperature Source Oral Oral Pulse Rate 99 92 Respiratory Rate 25 H 25 H Respiratory Effort Short of Breath Respiratory Depth Shallow Respiratory Pattern Tachypnea Blood Pressure 136/64 H 136/64 H Blood Pressure Mean 88 88 Pulse Ox 94 99 Oxygen Delivery Method Room Air Room Air Room Air Oxygen Flow Rate (L/min) 06/17/24 18:56 06/17/24 19:12 06/17/24 19:17 Temperature 100 F H Temperature Source Oral Pulse Rate 82 69 Respiratory Rate 16 13 Respiratory Effort Respiratory Depth Respiratory Pattern Normal Blood Pressure 110/96 H Blood Pressure Mean 100 Pulse Ox 97 Oxygen Delivery Method Nasal Cannula Nasal Cannula Oxygen Flow Rate (L/min) 3 3 06/17/24 20:00 06/17/24 21:00 Temperature 100 F H 98.8 F Temperature Source Oral Oral Pulse Rate 68 71 Respiratory Rate 15 17 Respiratory Effort Respiratory Depth Respiratory Pattern Blood Pressure 101/54 L 111/66 Blood Pressure Mean 69 81 Pulse Ox 97 96 Oxygen Delivery Method Nasal Cannula Nasal Cannula Oxygen Flow Rate (L/min) 3 3 Positive well nourished, well developed and obese General Appearance ED: well developed and NAD Nutritional Appearance: obese HEENT Reports normocephalic, head/scalp atraumatic and moist mucous membranes HEENT Narrative: Patient is mouth breathing. Nasal cannula is in her mouth. Eyes PERRL and EOMs intact bilaterally Neck no lymphadenopathy, supple and no JVD Resp normal respiratory effort Resp Narrative: Faint expiratory wheeze Cardio regular rate, regular rhythm and no murmurs GI normal to inspection, nondistended, normoactive bowel sounds and non-tender Palpation: soft Back/Spine no CVA tenderness and normal ROM Extremity normal to inspection General Extremety ED: Negative for edema General Extremity: Negative for edema Neuro oriented x3 and CN's II-XII intact bilaterally Sensorium / Orientation: alert Motor Exam: general weakness Psych mental status grossly normal Mood & Affect: Negative for depressed or tearful Skin no rashes or lesions noted and no wounds MDM MDM MDM Narrative Medical decision making narrative: Differential diagnosis includes COVID-19 pneumonia CHF COPD exacerbation dehydration pulmonary embolism My independent interpretation of the chest x-ray is no acute process. White count 10.1 hemoglobin 10.2 platelet count of 213. INR is 1.4 PTT 36.3 lactic acid is normal at 0.6 creatinine slightly elevated at baseline at 1.84 with a BUN of 19 anion gap is 9 CO2 26 urinalysis shows no overt infection. CTA of the chest does not demonstrate pulmonary embolism or pneumonia. Patient received fluids as well as Tylenol. She received supplemental oxygen and a dose of Atrovent. Patient is resting comfortably in the bed. She is drinking some milk. The patient states she overall feels much better now that she does not have a fever. Clinically do not see anything that would require hospitalization. I spoke with the patient regarding Paxlovid. I think is reasonable given her mild to moderate symptoms in an effort to keep her from requiring hospitalization. History & Record Review Discussion w/independent historian: EMS personnel and Patient Lab Data Attestation: I reviewed the patient's lab results. Labs: Laboratory Results - last 24 hr 06/17/24 06/17/24 18:42 19:50 WBC 10.1 RBC 4.06 L Hgb 10.2 L Hct 33.4 L MCV 82.3 MCH 25.1 L MCHC 30.5 L RDW Std Deviation 44.8 H RDW Coeff of Chad 14.9 H Plt Count 213 MPV 10.5 Immature Gran % (Auto) 1.100 H Neut % (Auto) 81.8 H Lymph % (Auto) 10.1 L Jenkins % (Auto) 6.3 Eos % (Auto) 0.1 Baso % (Auto) 0.6 Absolute Neuts (auto) 8.2 H Absolute Lymphs (auto) 1.02 Nucleated RBC % 0 PT 16.6 H INR 1.4 APTT 36.3 H Sodium 142 Potassium 3.3 L Chloride 107 Carbon Dioxide 26.0 Anion Gap 9 BUN 19 H Creatinine 1.84 H Estim Creat Clear Calc 24.26 Est GFR (MDRD) Af Amer 35 L Est GFR (MDRD) Non-Af 29 L BUN/Creatinine Ratio 10.3 Glucose 184 H Lactic Acid 0.6 Calcium 9.4 Total Bilirubin 0.50 AST 13 L ALT 17 Alkaline Phosphatase 200 H Troponin I High Sens 10 Total Protein 7.1 Albumin 3.2 Globulin 3.9 Albumin/Globulin Ratio 0.8 L Urine Color Yellow Urine Clarity Sl. Cloudy Urine pH 5.0 Ur Specific [place] 1.020 Urine Protein 500 H Urine Glucose (UA) Normal Urine Ketones Negative Urine Occult Blood 25 H Urine Nitrite Negative Urine Bilirubin Negative Urine Urobilinogen Normal Ur Leukocyte Esterase Negative Urine RBC 0-5 SEEN Urine WBC 0 SEEN Ur Squamous Epith Cells 0-5 SEEN Amorphous Sediment 1+ URATE Urine Bacteria 0 SEEN Hyaline Casts 0-5 SEEN Fine Granular Casts 0-5 SEEN RBC Casts 0-5 SEEN Urine Mucus 0 SEEN Radiography Diagnostic Testing: Clinical Impression(s) from Imaging Studies Chest X-Ray 06/17/24 19:00 IMPRESSION: No acute cardiopulmonary pathology Electronically Signed: Azam Hernadez MD at 19:19 EDT , Chest CTA 06/17/24 20:04 IMPRESSION: Minor atelectasis within the dependent portion of the lower lobes.. No acute cardiopulmonary pathology. No evidence for pulmonary embolus Electronically Signed: Azam Hernadez MD at 21:12 EDT , EKG Initial EKG: Attestation: I personally reviewed and interpreted this EKG as follows: Comments: Normal sinus rhythm ventricular rate of 82 bpm Discharge Plan Triage Chief Complaint: Shortness of Breath ED Provider: Loc Medina Dx/Rx/DC Orders Clinical Impression: COVID-19, Fever, COPD (chronic obstructive pulmonary disease) Prescriptions: New Paxlovid 150-100 mg tablets,dose pack See Rx Instructions .ROUTE .COMPLEX Qty: 20 0RF Rx Instructions: orally per package directions No Action insulin glargine [Basaglar KwikPen U-100 Insulin] 100 unit/mL (3 mL) insulin pen 24 unit subcut QHS carvedilol 12.5 mg tablet 1 tab PO DAILY citalopram 10 mg tablet 1 tab PO DAILY clopidogrel 75 mg tablet 1 tab PO DAILY amlodipine 10 mg tablet 1 tab PO DAILY doxazosin 2 mg tablet 1 tab PO DAILY cholecalciferol (vitamin D3) 50 mcg (2,000 unit) tablet 1 tab PO DAILY calcium carbonate [Calcium 500] 500 mg calcium (1,250 mg) tablet,chewable 500 mg PO DAILY anastrozole 1 mg tablet 1 mg PO DAILY bisacodyl 10 mg suppository 10 mg TN DAILY PRN (Reason: constipation) levothyroxine 75 mcg tablet 75 mcg PO DAILY lisinopril 30 mg tablet 30 mg PO DAILY guaifenesin [Mucinex] 600 mg tablet extended release 12hr 1,200 mg PO BID PRN (Reason: congestion) magnesium hydroxide [Milk of Magnesia] 400 mg/5 mL suspension 30 ml PO DAILY PRN (Reason: constipation) trazodone 50 mg tablet 50 mg PO QHS ondansetron HCl 4 mg tablet 4 mg PO Q6H PRN (Reason: nausea and vomiting) acetaminophen [Tylenol] 325 mg Tablet 650 mg PO Q6H PRN (Reason: Pain Score 1-10/Temp > 100.7 F) Primary Care Provider: Allen Obrien Referrals: Tera Butts MD [Med Staff - Active Staff] - Activity Restrictions/Additional Instructions: I would recommend aggressive fever control using Tylenol. Oxygen as needed to maintain saturations as per previous order Oral hydration Monitor your breathing return if worsening Print Language: Hong Konger Disposition Disposition: Home, Self Care
[2024-06-17] MEDS: 0.9% Normal Saline (1000mL) 1,000 ML 999 ML IV (18:55)
[2024-06-17] MEDS: Acetaminophen 500 MG Tablet 1000 MG PO (18:55)
--- NOTE | 2024-06-17 19:00 | RAD_ITS ---
STUDY: X-RAY CHEST REASON FOR EXAM: Female, 69 years old. COVID 19 TECHNIQUE: AP portable COMPARISON: December 05, 2022 FINDINGS: The lungs are clear and expanded. There is no demonstrated pleural abnormality. Normal size heart. Normal mediastinum and jason. Normal visualized pulmonary arteries. Normal visualized aortic arch and descending thoracic aorta. Postop change status post left mastectomy Normal visualized thoracic spine. Normal visualized ribs, clavicles, and shoulders. There is no demonstrated abnormality of the visualized soft tissue structures of the upper abdomen. No significant change since prior exam RAD/Chest 1 View (Portable) IMPRESSION: No acute cardiopulmonary pathology Electronically Signed: Azam Hernadez MD at 19:19 EDT ,
[2024-06-17 19:07] LABS: Absolute Lymphocyte Count 1.02 X10^3/uL (0.83-4.51); Absolute Neutrophil Count 8.2 X10^3/uL (2.0-7.7); Basophil# 0.06 X10^3/uL; Basophil% 0.6 % (0-1); Eosinophil# 0.01 X10^3/uL; Eosinophils% 0.1 % (0-5); Hematocrit 33.4 % (37-47); Hemoglobin 10.2 g/dL (12.0-15.0); Lymphocyte # 1.02 X10^3/ul (0.83-4.51); Lymphocyte % 10.1 % (19-41); Mean Corp Hgb Conc 30.5 g/dL (32-36); Mean Corpuscular Hgb 25.1 pg (27.0-32.0); Mean Corpuscular Volume 82.3 fL (81-99); Mean Platelet Vol. 10.5 fl (6.2-12.0); Monocyte# 0.63 X10^3/uL; Monocyte% 6.3 % (0-10); NRBC Flagged by Analyzer 0 % (0-5); Neutrophil # 8.22 X10^3/uL (2.7-7.7); Neutrophil % 81.8 % (47-70); Platelet Count 213 K/mm3 (150-450); RBC Distribution Width CV 14.9 % (11.6-14.6); RBC Distribution Width SD 44.8 fl (35.1-43.9); Red Blood Count 4.06 M/mm3 (4.2-5.4); White Blood Count 10.1 K/mm3 (4.4-11.0)
[2024-06-17] MEDS: Ipratropium 0.5 MG/2.5 ML SOLUTION INHALATION (19:12)
[2024-06-17 19:19] LABS: International Normalized Ratio 1.4; Prothrombin Time (Protime)PT. 16.6 SECONDS (11.7-14.9)
[2024-06-17 19:20] LABS: Partial Thromboplast Time 36.3 Seconds (24.1-36.2)
[2024-06-17 19:25] LABS: ALB/GLOB Ratio 0.8 RATIO (0.9-2.4); AST(SGOT) 13 U/L (15-37); Alanine Aminotransfer ALT/SGPT 17 U/L (13-56); Albumin, Serum 3.2 g/dL (3.2-5.0); Alkaline Phosphatase 200 U/L (45-117); Anion Gap 9 (5-15); BUN 19 mg/dL (7-18); BUN/Creat Ratio 10.3 RATIO (10-20); Calcium,Total 9.4 mg/dL (8.5-10.1); Chloride 107 mmol/L (98-107); Creatinine, Serum 1.84 mg/dL (0.55-1.02); EST Glomerular Filtration Rate 29 mL/min (>60); Est Glom Filt Rate - Afr Amer 35 mL/min (>60); Estimated Creatinine Clearance 24.26 ml/min; Globulin 3.9 g/dL (2.2-4.2); Glucose 184 mg/dL (74-106); Potassium 3.3 mmol/L (3.5-5.1); Protein, Total 7.1 g/dL (6.4-8.2); Sodium Level 142 mmol/L (136-145); Troponin-I HS 10 pg/mL (3.0-54.0)
[2024-06-17 19:29] LABS: Lactic Acid 0.6 mmol/L (0.4-1.9)
[2024-06-17 20:02] LABS: Bacteria 0 SEEN /hpf (None Seen); Mucous, Urine 0 SEEN /hpf (<or=2+); White Blood Cells 0 SEEN /hpf (0-5)
--- NOTE | 2024-06-17 20:04 | CT_ITS ---
STUDY: CTA CHEST REASON FOR EXAM: Female, 69 years old. pulmonary embolism RADIATION DOSAGE (If Supplied By Facility): CTDIvol = ( 23.23 ) mGy, DLP = ( 458.26 ) mGycm TECHNIQUE: The examination was performed with the intravenous administration of IV 75mL Isovue-370. Post-processing of the angiographic images was performed, with multiplanar reformation and 3D reconstruction. Individualized dose optimization techniques were used for this CT. COMPARISON: None. FINDINGS: Normal enhancement of the main pulmonary artery and right and left pulmonary arteries. Normal enhancement of the bilateral peripheral pulmonary arteries. There is no demonstrated pulmonary embolism. Mild atherosclerotic change of the aorta without evidence for aneurysm. There is no demonstrated aortic dissection. The heart size is normal. There is minor coronary artery calcification Normal mediastinum. Normal hilar regions. Normal visualized trachea and bronchi. The lungs are well expanded. There is minor atelectasis within the dependent portion of the lower lobes. There is no focal infiltration or pulmonary nodule. Normal pleura. Left breast has been removed surgically.. Dorsal spine demonstrates mild spondylosis Normal visualized upper abdomen. CT/CTA Chest W/WO Contrast IMPRESSION: Minor atelectasis within the dependent portion of the lower lobes.. No acute cardiopulmonary pathology. No evidence for pulmonary embolus Electronically Signed: Azam Hernadez MD at 21:12 EDT ,
[2024-06-17 21:09] LABS: Color, Urine Yellow (Yellow); Glucose, Dipstick Normal (Normal); Ketone-Dipstick Negative (Negative); Leukocyte Esterase-Dipstick Negative /ul (Negative); Nitrite-Dipstick Negative (Negative); Occult Blood-Urine 25 /ul (Negative); Protein-Dipstick 500 mg/dl (Negative); Urine Bilirubin Dipstick Negative (Negative); Urine Clarity Sl. Cloudy (Clear); Urine Urobilinogen Normal (Normal)
[2024-06-17 21:40] LABS: Fine Granular Cast- Urine 0-5 SEEN /lpf (0-5); Hyaline Cast 0-5 SEEN /lpf (0-5); Red Blood Cells-Urine 0-5 SEEN /hpf (0-5); Squamous Epithelial Cells - UA 0-5 SEEN /hpf (5-10)
[2024-06-17 21:41] LABS: Amorphous Sediment 1+ URATE; Red Cell Cast 0-5 SEEN /lpf (None Seen)
[2024-06-17] MEDS: 0.9% Normal Saline (1000mL) 1,000 ML 150 ML IV (22:16)
--- NOTE | 2024-06-17 23:23 | ED.RN ---
Report given to Parish Nguyễn.
[2024-06-18] VITALS: BP 124/63; PULSE 66; RESP 15; TEMP 36.6; O2SAT 97
[2024-06-18 01:00] VITALS: BP 126/58; PULSE 63; RESP 22; TEMP 36.6; O2SAT 95
[2024-06-18 02:00] VITALS: BP 104/58; PULSE 59; RESP 20; TEMP 36.6; O2SAT 96
== END 2024-06-18 02:34 | disposition home or self-care (01) ==
PROVIDERS: Emergency Provider Emergency Medicine; PCP Family Medicine; Visit Provider Emergency Medicine
DX: U07.1 COVID-19 (principal); J44.9 Chronic obstructive pulmonary disease, unspecified; E11.22 Type 2 diabetes mellitus with diabetic chronic kidney disease; Z79.4 Long term (current) use of insulin; N18.30 Chronic kidney disease, stage 3 unspecified; I12.9 Hypertensive chronic kidney disease with stage 1 through stage 4 chronic kidney disease, or unspecified chronic kidney disease; Z86.73 Personal history of transient ischemic attack (TIA), and cerebral infarction without residual deficits; Z85.3 Personal history of malignant neoplasm of breast; Z79.899 Other long term (current) drug therapy; Z79.02 Long term (current) use of antithrombotics/antiplatelets; E03.9 Hypothyroidism, unspecified; Z90.49 Acquired absence of other specified parts of digestive tract; Z90.10 Acquired absence of unspecified breast and nipple; R50.9 Fever, unspecified
CPT/HCPCS: 51701; 71045; 71275; 80053; 81001; 83605; 84484; 85025; 85610; 85730; 87040; 87086; 87631; 93005; 94640; 96360; 99285; J7030; P9612; Q9967; A4216

== ENCOUNTER → 2024-12-01 | Outpatient (CLI) | payer MEDICAID, SELFPAY ==
--- NOTE | 2024-12-01 12:15 | RAD_ITS ---
PROCEDURE: PA and lateral chest radiograph, two views REASON FOR EXAM: Weight loss TECHNIQUE: PA and lateral chest radiographs were obtained. COMPARISON: 06/17/2024 FINDINGS: The cardiomediastinal silhouette is similar. There appears to be some new silhouetting of the right hemidiaphragm on the PA view. Mild scarring or subsegmental atelectasis at the left lung base. A lobulated 2.4 cm opacity projecting over the upper left lily thorax on the PA view likely corresponds to a vague density projecting over the anterior soft tissues of the upper thorax on the lateral view, possibly on the patient's clothing or a hair tie. RAD/Chest PA and Lateral IMPRESSION: There is some new silhouetting of the right hemidiaphragm compared to the prior study, suspicious for right middle lobe pneumonia. No sizable pleural effusion. Recommend a follow-up PA and lateral chest radiograph in 1 week. A 2.4 cm lobulated opacity projecting over the upper left lily thorax on the PA view, favored to be something on the patient's clothing or hair tie, projecting over the anterior soft tissues of the anterior upper thorax on the lateral projection. Suggest correlation with clinical exam findings. Attention to this location on the fol low-up study in 1 week. Reading Location: [facility]
[2024-12-01 12:27] LABS: Absolute Lymphocyte Count 2.44 X10^3/uL (0.83-4.51); Absolute Neutrophil Count 7.1 X10^3/uL (2.0-7.7); Basophil# 0.08 X10^3/uL; Basophil% 0.8 % (0-1); Eosinophil# 0.21 X10^3/uL; Hematocrit 38.3 % (37-47); Hemoglobin 11.9 g/dL (12.0-15.0); Lymphocyte # 2.44 X10^3/ul (0.83-4.51); Lymphocyte % 23.4 % (19-41); Mean Corp Hgb Conc 31.1 g/dL (32-36); Mean Corpuscular Hgb 25.2 pg (27.0-32.0); Mean Platelet Vol. 10.7 fl (6.2-12.0); Monocyte# 0.53 X10^3/uL; Monocyte% 5.1 % (0-10); NRBC Flagged by Analyzer 0 % (0-5); Neutrophil # 7.08 X10^3/uL (2.7-7.7); Platelet Count 284 K/mm3 (150-450); RBC Distribution Width CV 15.7 % (11.6-14.6); RBC Distribution Width SD 46.2 fl (35.1-43.9); Red Blood Count 4.73 M/mm3 (4.2-5.4); White Blood Count 10.4 K/mm3 (4.4-11.0)
[2024-12-01 13:56] LABS: ALB/GLOB Ratio 1.3 RATIO (0.9-2.4); AST(SGOT) 16 U/L (<=31); Alanine Aminotransfer ALT/SGPT 13 U/L (<=34); Albumin, Serum 3.8 g/dL (3.4-4.8); Alkaline Phosphatase 157 U/L (35-104); Anion Gap 11 (5-15); BUN 27 mg/dL (4-19); BUN/Creat Ratio 17.3 RATIO (10-20); Calcium 9.5 mg/dL (7.6-11.0); Carbon Dioxide 24.1 mmol/L (22.0-29.0); Chloride 104 mmol/L (96-108); Creatinine, Serum 1.6 mg/dL (0.6-1.0); EST Glomerular Filtration Rate 35 (>60); Globulin 2.9 g/dL (2.2-4.2); Glucose 185 mg/dL (70-99); Potassium 4.2 mmol/L (3.3-5.1); Protein, Total 6.7 g/dL (5.9-8.4); Sodium Level 139 mmol/L (133-145); Total Bilirubin 0.28 mg/dL (0.00-1.30)
== END | disposition home or self-care (01) ==
PROVIDERS: PCP Family Medicine; Referring Provider Nurse Practitioner Acute Care; Visit Provider Nurse Practitioner Acute Care
DX: R63.4 Abnormal weight loss (principal); Z85.3 Personal history of malignant neoplasm of breast; Z87.891 Personal history of nicotine dependence
CPT/HCPCS: 36415; 71046; 80053; 85025

== ENCOUNTER → 2024-12-23 | Outpatient (CLI) | payer MEDICAID, SELFPAY ==
--- NOTE | 2024-12-23 17:45 | CT_ITS ---
PROCEDURE: ABDOMEN/PELVIS WITH CONTRAST (procedure code CTABDPELW), 12/23/2024 REASON FOR EXAM: WEIGHT LOSS TECHNIQUE: CT abdomen and pelvis was performed with IV contrast. Multiplanar reformats were generated. Oral contrast also administered. IV CONTRAST: Isovue 370 VOLUME: 100mL ORAL CONTRAST TYPE: Gastrografin AMOUNT: Not provided. RADIATION DOSE SUMMARY: CTDlvol: 13.3 mGy DLP: 606.41 mGycm One or more dose reduction techniques were used (e.g., Automated exposure control, adjustment of the mA and/or kV according to patient size, use of iterative reconstruction technique). COMPARISON: No prior CT FINDINGS: Mild artifact through the pelvis related to RIGHT hip orthopedic hardware. Note that the exam is slightly limited by late arterial phase of contrast timing with unopacified hepatic veins. Lung bases: LEFT mastectomy. Liver: Unremarkable. Spleen: Unremarkable. Gallbladder: Underdistended gallbladder with mild nonspecific wall thickening. Cholelithiasis. No convincing adjacent inflammation. Top-normal caliber of the CBD. Pancreas: Unremarkable. Adrenals: Unremarkable. Kidneys: 1.2 cm LEFT renal macroscopic fat containing likely angiomyolipoma. Bowel: Mild focal wall thickening versus underdistention along the antral pyloric stomach. Small duodenal lipoma. Likely appendectomy. Lymph nodes: Unremarkable. Vasculature: Moderate to advanced atherosclerosis. Accessory RIGHT lower pole renal artery, normal variant. Peritoneum: Unremarkable. Bladder: Underdistended and suboptimally evaluated, grossly unremarkable. Reproductive Organs: Unremarkable. Body Wall: Unremarkable. Bones: Demineralization. Multilevel spondylosis. Age-indeterminate L2 compression deformity with roughly 30% loss of anterior vertebral body height. Partially imaged proximal RIGHT femoral orthopedic hardware with old posttraumatic deformity. CT/Abdomen/Pelvis WITH Contrast IMPRESSION: 1. Demineralization with age-indeterminate L2 compression deformity. Correlate with history and point tenderness. 2. Cholelithiasis with mild nonspecific gallbladder wall thickening. Acute cho lecystitis is considered unlikely given that the gallbladder is not distended and in the absence of convincing adjacent inflamma tion. Chronic cholecystitis or other etiologies for gallbladder wall thickening such as venous congestion or reactive wall thic kening related to a hepatic process are additional considerations. Top-normal caliber of the CBD. 3. Mild focal wall thickening versus underdistention along the antropyloric sto mach. Recommend clinical follow-up to exclude a underlying lesion in this location. 4. Additional description as above. Reading Location: [id number]
== END | disposition home or self-care (01) ==
LOC: CT 17:43
PROVIDERS: PCP Family Medicine; Referring Provider Nurse Practitioner Acute Care; Visit Provider Nurse Practitioner Acute Care
DX: R63.4 Abnormal weight loss (principal); Z85.3 Personal history of malignant neoplasm of breast; Z87.891 Personal history of nicotine dependence
CPT/HCPCS: 74177; Q9967; A4216

== ENCOUNTER → 2024-12-30 | Outpatient (CLI) | payer MEDICAID, SELFPAY ==
[2024-12-30 19:59] LABS: AST(SGOT) 12 U/L (<=31); Alanine Aminotransfer ALT/SGPT 9 U/L (<=34); Albumin, Serum 3.8 g/dL (3.4-4.8); Alkaline Phosphatase 166 U/L (35-104); Bilirubin, Direct 0.11 mg/dL (0.00-0.30); Globulin 2.8 g/dL (2.2-4.2); Protein, Total 6.6 g/dL (5.9-8.4); Total Bilirubin 0.27 mg/dL (0.00-1.30)
[2025-01-01 04:07] LABS: GGTP 18 IU/L (0-60)
== END | disposition home or self-care (01) ==
LOC: LAB 15:41
PROVIDERS: PCP Family Medicine; Referring Provider Nurse Practitioner Acute Care; Visit Provider Nurse Practitioner Acute Care
DX: R74.8 Abnormal levels of other serum enzymes (principal); R93.89 Abnormal findings on diagnostic imaging of other specified body structures; Z85.3 Personal history of malignant neoplasm of breast; R63.4 Abnormal weight loss
CPT/HCPCS: 36415; 80076; 82977; 84443

== ENCOUNTER 2025-03-23 08:50 | Day surgery (SDC) | payer MEDICAID, SELFPAY ==
--- NOTE | 2025-03-22 18:44 | PAT.ANESEVAL ---
Pre-Assessment Diagnosis/Proposed Procedure Planned Operative Procedure(s): COLONOSCOPY, EGD Anesthesia History Anesthesia History - infection control specialist: Anesthesia History - infection control specialist Hx Hospitalization No 03/22/25 15:42 Any Problems With Anesthesia No 03/22/25 15:42 Cholinesterase deficiency No 03/22/25 15:42 You/Your Family Experience No 03/22/25 15:42 fever (hyperthermia) with Relationship Recent Exposure to Contagious No 07/02/21 11:44 Disease Does patient have nerve No 03/22/25 15:42 stimulator Patient instructed to have device shut off --Does patient have Pacemaker or ICD? When Was Last Pacemaker Check QUESTION #4 FULL TEXT: You/Your Family Experience fever (hyperthermia) with Anesthesia Last Oral Intake Last Oral intake: Last Oral Intake NPO since Meds taken in AM with sips of water? Meds patient instructed to take am of surgery PONV PONV - infection control specialist: PONV - infection control specialist Female Yes 03/22/25 15:42 HX of Motion Sickness No 03/22/25 15:42 HX of N/V After Surgery No 03/22/25 15:42 Non-Smoker Yes 03/22/25 15:42 Duration of Surgery greater No 03/22/25 15:42 than 60 minutes Number of Risk Factors 2 03/22/25 15:42 PONV Score Moderate Risk 03/22/25 15:42 Height & Weight Height & Weight: Anesthesia: Height & Weight Height 5 ft 12/30/24 14:49 Respiratory Assessment Respiratory Assessment - infection control specialist: Respiratory Tract Infection Hx - infection control specialist Hx Respiratory Tract Infection No 03/22/25 15:42 STOP Sleep Apnea STOP Sleep Apnea - infection control specialist: STOP Sleep Apnea - infection control specialist Hx Hypertension Yes 03/22/25 15:42 Hx Sleep Apnea Yes 03/22/25 15:42 CPAP No 03/22/25 15:42 BIPAP No 03/22/25 15:42 Do you snore loudly (louder than talking or can be heard Do you often feel tired/ fatigued/ sleepy during daytime? Has anyone observed you stop breathing during sleep? STOP Results Positive 03/22/25 15:42 QUESTION #5 FULL TEXT : Do you snore loudly (louder than talking or can be heard through closed doors)? 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 Specify any problems Hx of Preganancy in last 3 No 03/22/25 15:42 Months Nurse Filling Out Transfusion [id number] 03/22/25 15:42 & Questions: Date: 03/22/25 03/22/25 15:42 Time: 15:48 03/22/25 15:42 Patient unable to answer at this time (ie. confused, unrespo /Reproduction History /Reproductive History - infection control specialist: /Reproductive Hx- infection control specialist Hx Now No 03/22/25 15:42 Gestational Age (in weeks): EDC: Hx Hx Para Hx Section SAB PFSH Medical History Smoker Fall Hypoglycemia Hypoglycemia CKD (chronic kidney disease) stage 3, GFR 30-59 ml/min Former smoker Sleep apnea COPD (chronic obstructive pulmonary disease) Tobacco abuse Right knee pain Noncompliance w/medication treatment due to intermit use of medication CVA (cerebral vascular accident) Vertigo Constipation Flu vaccine need Noncompliance Hypertension Right hip pain Acute infarct right urban radiata Fall Type 2 diabetes mellitus Hypothyroidism Vision problems Thyroid disease High blood pressure Hearing problem Diabetes Carpal tunnel syndrome Breast cancer Asthma Arthritis Home Medications ?Medication ?Instructions ?Recorded ?Last Taken ?Type amlodipine 10 mg tablet 1 tab PO DAILY blood pressure 04/29/22 Unknown History carvedilol 12.5 mg tablet 1 tab PO DAILY blood pressure 04/29/22 Unknown History cholecalciferol (vitamin D3) 50 1 tab PO DAILY supplement 04/29/22 Unknown History mcg (2,000 unit) tablet citalopram 10 mg tablet 1 tab PO DAILY depression 04/29/22 Unknown History clopidogrel 75 mg tablet 1 tab PO DAILY antiplatelet 04/29/22 Unknown History Held on 03/22/25. Instructions: SINCE 05/08/24 anastrozole 1 mg tablet 1 mg PO DAILY 06/17/24 Unknown History bisacodyl 10 mg rectal suppository 10 mg SC DAILY PRN constipation 06/17/24 Unknown History calcium carbonate (Calcium 500) 500 mg PO DAILY 06/17/24 Unknown History lisinopril 30 mg tablet 30 mg PO DAILY 06/17/24 Unknown History magnesium hydroxide 400 mg/5 mL 30 ml PO DAILY PRN constipation 06/17/24 Unknown History oral suspension (Milk of Magnesia) ondansetron HCl 4 mg tablet 4 mg PO Q6H PRN nausea and vomiting 06/17/24 Unknown History peg 3350-electrolytes 236 240 ml PO Q10M #4,000 mL 12/30/24 Unknown Rx gram-22.74 gram-6.74 gram-5.86 gram solution (Golytely) acetaminophen 500 mg capsule 1,000 mg PO Q8H PRN pain 03/22/25 Unknown History calcium carbonate (Calcium 500) 500 mg PO Q4H PRN PRN indigestion 03/22/25 Unknown History dextrose 40 % oral gel (Glucose 15 g PO Q15M PRN hypoglycemia 03/22/25 Unknown History Gel) doxazosin 1 mg tablet 1 mg PO DAILY 03/22/25 Unknown History glucagon 1 mg/0.2 mL subcutaneous 1 mg subcut PRN 03/22/25 Unknown History auto-injector insulin glargine 100 unit/mL (3 10 unit subcut QHS 03/22/25 Unknown History mL) subcutaneous pen (Basaglar KwikPen U-100 Insulin) levothyroxine 88 mcg tablet 88 mcg PO DAILY 03/22/25 Unknown History mineral oil (Fleet Mineral Oil 118 ml SC DAILY PRN constipation 03/22/25 Unknown History enema) Allergy/AdvReac Type Severity Reaction Status Date / Time aspirin Allergy Unknown Nausea Verified 03/22/25 15:30 albuterol AdvReac I GET VERY Verified 03/22/25 15:30 SHAKEY/HYPERVENTILATING Penicillins AdvReac Nausea/Vom/ Verified 03/22/25 15:30 Diarrhea Family History Father Cancer bone cancer Brother Heart disease Surgical History History of section H/O mastectomy History of appendectomy Social History household members: spouse Smoking Status: Former smoker Tobacco: How many years used: 50 alcohol intake: never substance use type: marijuana and other details: smokes 4 joints a day Audit: Pertinent Findings Pertinent Findings EKG Perinent findings: NSR with ST & T wave abrnormality - 06/2024 Recommendation Anesthesia Recommendation Anesthesia recommendation: OPTIMIZED for anesthesia
[2025-03-23] VITALS (8 sets, daily range): BP systolic 117–165; BP diastolic 59–81; PULSE 68–77; RESP 14–18; TEMP 36.1–36.9; O2SAT 94–99; BMI 25.8
--- NOTE | 2025-03-23 08:57 | EKG12_ITS ---
Test Reason : preop Blood Pressure : */* mmHG Vent. Rate : 67 BPM Atrial Rate : 67 BPM P-R Int : 160 ms QRS Dur : 74 ms QT Int : 426 ms P-R-T Axes : 72 11 -78 degrees QTcB Int : 450 ms Normal sinus rhythm Low voltage QRS Septal infarct (cited on or before 17-Jun-2024) T wave abnormality, consider inferior ischemia Abnormal ECG When compared with ECG of 17-Jun-2024 18:50, No significant change was found Confirmed by ANJUM LEO, DARRON ([id number]), videotape editor KENDELL FERNÁNDEZ ([id number]) on 03/24/2025 5:37:11 AM Referred By: Allen Obrien Confirmed By: DARRON VALERO MD
--- NOTE | 2025-03-23 08:58 | PCM.HP.STD ---
HPI - General General Date of Admission: 03/23/25 Date of Service: 03/23/25 Chief Complaint: Abdominal pain and weight loss HPI Narrative MELODY HUGGINS, is a 69 F who presents Chief Complaint: Upper abdominal pain and weight loss . CXR was completed 12/01/2024 and was suspicious for right middle lobe pneumonia. It was recommended she repeat CXR in [address] A&P performed 12/23/2024 revealed mild focal wall thickening versus underdistention along the antral pyloric stomach, small duodenal lipoma, an underdistended gallbladder with mild nonspecific wall thickening, cholelithiasis and top normal CBD. Labs performed 12/01/2024 reveal hemoglobin 11.9, alkaline phosphatase 157 (down from 200 06/17/2024). - denies any cough, CP or fevers - denies any loss of appetite - h/o smoking - denies any coughing with swallowing - reports she is eating well - denies any change in bowel habits - denies any pain or nausea - pers h/o breast cancer - she is non-mobile - denies any heart disease - denies any lung disease - denies any kidney disease - she is claustrophobic ROS Const Constitutional: Positive for fatigue; No fever(s) or weight change ENT ENT: No difficulty swallowing Gastro GI: No abdominal pain, belching, bloating, change in bowel habits, change in stool character, coffee ground emesis, constipation, cramping, diarrhea, heartburn, difficulty swallowing, feeling full early, excessive flatus, incontinent of stools, Vomiting blood/hematemesis, Blood in stool, loose stools, Black,tarry stools, nausea/dyspepsia, pain with swallowing, vomiting or other Musc Musculoskeletal: Positive for Arthritis; No joint pain Skin Skin: No yellowing of the eye or itchy eyes Psych Psychiatric: No anxiety and Positive for depression Endo Endocrine: Positive for fatigue; No weight change Aller/Imm Allergy/Immunologic: No itchy eyes Eusebio/Lymp Hematologic/Lymphatic: Positive for easy bruising; No easy bleeding Exam Const General: cooperative, healthy appearing, no acute distress and well developed Nutritional Appearance: average body habitus and well nourished Orientation: alert and oriented x3 Other: Sitting in wheelchair [facility] Head: normocephalic Ears: hearing grossly normal bilaterally Mouth: moist mucous membranes Eyes Conjunctivae: conjunctivae normal Sclera: sclerae normal Neck Neck: normal visual inspection, full ROM and trachea midline Resp Effort & Inspection: normal respiratory effort, able to speak in complete sentences and symmetric chest movement Auscultation: Bilateral: Clear to Auscultation Cardio Rate: regular rate Rhythm: regular rhythm GI Inspection: normal to inspection Auscultation: normal bowel sounds Palpation: soft and no hepatosplenomegaly Rectal Exam: deferred Neuro General: patient alert and patient oriented x3 Cranial Nerves: other (CN's grossly intact, non-focal exam) Cognition: normal cognition Speech: speech normal Psych Appearance: grossly normal and well kempt Affect: normal affect Attitude: cooperative Thought Process: normal Assessment and Plan Assessment and Plan (1) Weight loss: Status: Acute (2) Personal history of breast cancer: Status: Acute (3) Elevated alkaline phosphatase level: Status: Acute (4) Abnormal chest xray: Status: Acute Orders: Orders Liver Profile Today R63.4 - Abnormal weight loss, R74.8 - Abnormal levels of other serum enzymes, R93.89 - Abnormal findings on diagnostic imaging of other specified body structures, Z85.3 - Personal history of malignant neoplasm of breast Thyroid Stim Hormone (TSH) Today R63.4 - Abnormal weight loss, R93.89 - Abnormal findings on diagnostic imaging of other specified body structures Medications: New peg 3350-electrolytes 236-22.74-6.74 -5.86 gram (Golytely) as directed for split dose bowel prep 240 mL PO Q10M 4,000 mL 0RF Plan 69-year-old female presents for follow-up of weight loss. She was last seen in the office on 12/01/2024 with a reported weight loss of greater than 20 pounds in the past 3 months. CXR was completed 12/01/2024 and was suspicious for right middle lobe pneumonia. It was recommended she repeat CXR in 1 week. However, due to inability to make contact with her snf after several attempts repeat CXR was not performed until 12/24/2024 which was [address] A&P performed 12/23/2024 revealed mild focal wall thickening versus underdistention along the antral pyloric stomach, small duodenal lipoma, an underdistended gallbladder with mild nonspecific wall thickening, cholelithiasis and top normal CBD. Labs performed 12/01/2024 reveal hemoglobin 11.9, alkaline phosphatase 157 (down from 200 06/17/2024). Her weight is down an additional 2 pounds in the past month. She continues to deny any loss of appetite, pain, nausea, vomiting or change in bowel habits. I have ordered repeat labs and scheduled her for bidirectional endoscopies. The patient arrived for their appointment from the snf without pertinent records or medication list. Multiple calls were required to obtain this information. For future visits, it would be greatly appreciated if the necessary records and medication list could accompany the patient to prevent delays in care. Note: [employer] speech recognition director of intercollegiate athlet[employer] software was used to create portions of this document. Sound-alike and misspelled words, as well as other director of intercollegiate athletics errors may be contained in the documentation. Patient Instructions: Complete labs at [facility] today Colonoscopy and EGD-GoLytely bowel prep [facility] Medical History Smoker Fall Hypoglycemia Hypoglycemia CKD (chronic kidney disease) stage 3, GFR 30-59 ml/min Former smoker Sleep apnea COPD (chronic obstructive pulmonary disease) Tobacco abuse Right knee pain Noncompliance w/medication treatment due to intermit use of medication CVA (cerebral vascular accident) Vertigo Constipation Flu vaccine need Noncompliance Hypertension Right hip pain Acute infarct right urban radiata Fall Type 2 diabetes mellitus Hypothyroidism Vision problems Thyroid disease High blood pressure Hearing problem Diabetes Carpal tunnel syndrome Breast cancer Asthma Arthritis Home Medications ?Medication ?Instructions ?Recorded ?Last Taken ?Type amlodipine 10 mg tablet 1 tab PO DAILY blood pressure 04/29/22 Unknown History carvedilol 12.5 mg tablet 1 tab PO DAILY blood pressure 04/29/22 Unknown History cholecalciferol (vitamin D3) 50 1 tab PO DAILY supplement 04/29/22 Unknown History mcg (2,000 unit) tablet citalopram 10 mg tablet 1 tab PO DAILY depression 04/29/22 Unknown History clopidogrel 75 mg tablet 1 tab PO DAILY antiplatelet 04/29/22 Unknown History Held on 03/22/25. Instructions: SINCE 05/08/24 anastrozole 1 mg tablet 1 mg PO DAILY 06/17/24 Unknown History bisacodyl 10 mg rectal suppository 10 mg NE DAILY PRN constipation 06/17/24 Unknown History calcium carbonate (Calcium 500) 500 mg PO DAILY 06/17/24 Unknown History lisinopril 30 mg tablet 30 mg PO DAILY 06/17/24 Unknown History magnesium hydroxide 400 mg/5 mL 30 ml PO DAILY PRN constipation 06/17/24 Unknown History oral suspension (Milk of Magnesia) ondansetron HCl 4 mg tablet 4 mg PO Q6H PRN nausea and vomiting 06/17/24 Unknown History peg 3350-electrolytes 236 240 ml PO Q10M #4,000 mL 12/30/24 Unknown Rx gram-22.74 gram-6.74 gram-5.86 gram solution (Golytely) acetaminophen 500 mg capsule 1,000 mg PO Q8H PRN pain 03/22/25 Unknown History calcium carbonate (Calcium 500) 500 mg PO Q4H PRN PRN indigestion 03/22/25 Unknown History dextrose 40 % oral gel (Glucose 15 g PO Q15M PRN hypoglycemia 03/22/25 Unknown History Gel) doxazosin 1 mg tablet 1 mg PO DAILY 03/22/25 Unknown History glucagon 1 mg/0.2 mL subcutaneous 1 mg subcut PRN 03/22/25 Unknown History auto-injector insulin glargine 100 unit/mL (3 10 unit subcut QHS 03/22/25 Unknown History mL) subcutaneous pen (Basaglar KwikPen U-100 Insulin) levothyroxine 88 mcg tablet 88 mcg PO DAILY 03/22/25 Unknown History mineral oil (Fleet Mineral Oil 118 ml NE DAILY PRN constipation 03/22/25 Unknown History enema) Allergy/AdvReac Type Severity Reaction Status Date / Time aspirin Allergy Unknown Nausea Verified 03/22/25 15:30 albuterol AdvReac I GET VERY Verified 03/22/25 15:30 SHAKEY/HYPERVENTILATING Penicillins AdvReac Nausea/Vom/ Verified 03/22/25 15:30 Diarrhea Family History Father Cancer bone cancer Brother Heart disease Surgical History History of section H/O mastectomy History of appendectomy Social History household members: spouse Smoking Status: Former smoker Tobacco: How many years used: 50 alcohol intake: never substance use type: marijuana and other details: smokes 4 joints a day ROS Constitutional Constitutional: Denies fatigue, fever(s), poor appetite, weight gain or weight loss Gastrointestinal Gastrointestinal: Denies belching, bloating, change in bowel habits, change in stool character, chewing difficulty, coffee ground emesis, constipation, cramping, diarrhea, dyspepsia, dysphagia, early satiety, excessive flatus, fecal incontinence, heartburn, hematemesis, hematochezia, hemorrhoids, loose stools, melena, nausea, odynophagia, rectal bleeding, tenesmus, vomiting or weight changes Physical Exam Const alert, oriented x3, no apparent distress and healthy appearing General Appearance: cooperative GI normal to inspection, nondistended, normoactive bowel sounds, soft to palpation, non-tender and non-distended Percussion: normal to percussion Rectal Exam: deferred Assessment & Plan Assessment/Plan (1) Weight loss: (2) Tobacco abuse: PLAN: Chief Complaint: I want to lose weight in my stomach Details: MELODY HUGGINS, is a 69 F who presents to the office today for CXR was completed 12/01/2024 and was suspicious for right middle lobe pneumonia. It was recommended she repeat CXR in [address] A&P performed 12/23/2024 revealed mild focal wall thickening versus underdistention along the antral pyloric stomach, small duodenal lipoma, an underdistended gallbladder with mild nonspecific wall thickening, cholelithiasis and top normal CBD. Labs performed 12/01/2024 reveal hemoglobin 11.9, alkaline phosphatase 157 (down from 200 06/17/2024). - denies any cough, CP or fevers - denies any loss of appetite - h/o smoking - denies any coughing with swallowing - reports she is eating well - denies any change in bowel habits - denies any pain or nausea - pers h/o breast cancer - she is non-mobile - denies any heart disease - denies any lung disease - denies any kidney disease - Assessment and Plan Assessment and Plan (1) Weight loss: Status: Acute (2) Personal history of breast cancer: Status: Acute (3) Elevated alkaline phosphatase level: Status: Acute (4) Abnormal chest xray: Status: Acute Orders: Orders Liver Profile Today R63.4 - Abnormal weight loss, R74.8 - Abnormal levels of other serum enzymes, R93.89 - Abnormal findings on diagnostic imaging of other specified body structures, Z85.3 - Personal history of malignant neoplasm of breast Thyroid Stim Hormone (TSH) Today R63.4 - Abnormal weight loss, R93.89 - Abnormal findings on diagnostic imaging of other specified body structures Medications: New peg 3350-electrolytes 236-22.74-6.74 -5.86 gram (Golytely) as directed for split dose bowel prep 240 mL PO Q10M 4,000 mL 0RF Plan 69-year-old female presents for follow-up of weight loss. She was last seen in the office on 12/01/2024 with a reported weight loss of greater than 20 pounds in the past 3 months. CXR was completed 12/01/2024 and was suspicious for right middle lobe pneumonia. It was recommended she repeat CXR in 1 week. However, due to inability to make contact with her snf after several attempts repeat CXR was not performed until 12/24/2024 which was un[address]. CT A&P performed 12/23/2024 revealed mild focal wall thickening versus underdistention along the antral pyloric stomach, small duodenal lipoma, an underdistended gallbladder with mild nonspecific wall thickening, cholelithiasis and top normal CBD. Labs performed 12/01/2024 reveal hemoglobin 11.9, alkaline phosphatase 157 (down from 200 06/17/2024). Her weight is down an additional 2 pounds in the past month. She continues to deny any loss of appetite, pain, nausea, vomiting or change in bowel habits. I have ordered repeat labs and scheduled her for bidirectional endoscopies. The patient arrived for their appointment from the snf without pertinent records or medication list. Multiple calls were required to obtain this information. For future visits, it would be greatly appreciated if the necessary records and medication list could accompany the patient to prevent delays in care. Note: [employer] speech recognition director of [employer]col[employer]iate [employer] software was used to create portions of this document. Sound-alike and misspelled words, as well as other director of intercollegiate athletics errors may be contained in the documentation. Patient Instructions: Complete labs at [facility] today Colonoscopy and EGD-GoLytely bowel prep
[2025-03-23] MEDS: Lactated Ringers 1,000 ML 15 ML IV (09:15)
--- NOTE | 2025-03-23 09:51 | PCM.PRE.AN2 ---
ASA Classification* ASA Classification ASA Classification: 3 Assessment & Plan Anesthesia* Anesthesia Assessment Anesthesia Assessment: Discussed sedation and/or anesthesia options, risks, benefits, and alternatives with patient/parents/legal guardian/POA. Questions invited. The patient/parents/legal guardian/POA seems to understand and agrees to proceed with anesthesia plan. Reviewed the physical assessment, medical history, allergy history and patient home medications list prior to surgery/procedure/anesthetic and documented any changes. Performed airway and anesthesia risk assessments. Anesthesia Type Anesthesia Type: MAC (Patient has mild aortic stenosis. Avoid high heart rates and low blood pressures. Phenylephrine is drug of choice.) History Source History Obtained from:: Patient and Chart Anesthesia Focused Assessment* Temperature: 98.5 F Pulse Rate: 69 Blood Pressure: 165/81 Respiratory Rate: 18 Pulse Ox: 95 Oxygen Delivery Method: Room Air Airway Assessment Mouth opens: 2 cm Mallampati Score: IV Teeth Condition: Dentures (Patient has full upper and lower dentures. They will come out.) Neck Range of motion (ROM): Limited ROM Labs Anesthesia Preop lab: CBC WBC 10.4 K/mm3 (4.4-11.0) 12/01/24 12:03 12/01/24 RBC 4.73 M/mm3 (4.2-5.4) 12/01/24 12:03 12/01/24 Hgb 11.9 g/dL (12.0-15.0) L 12/01/24 12:03 12/01/24 Hct 38.3 % (37-47) 12/01/24 12:03 12/01/24 Plt Count 284 K/mm3 (150-450) 12/01/24 12:03 12/01/24 CHEMISTRY Potassium 4.2 mmol/L (3.3-5.1) 12/01/24 12:03 12/01/24 Sodium 139 mmol/L (133-145) 12/01/24 12:03 12/01/24 Magnesium 1.3 mg/dL (1.6-2.6) L 01/27/22 05:33 01/27/22 Phosphorus 3.5 mg/dL (2.5-4.9) 01/12/20 05:32 01/12/20 BUN 27 mg/dL (4-19) H 12/01/24 12:03 12/01/24 Creatinine 1.6 mg/dL (0.6-1.0) H 12/01/24 12:03 12/01/24 Glucose 185 mg/dL (70-99) H 12/01/24 12:03 12/01/24 POC Glucose 220 mg/dL (74-106) H 05/03/22 11:48 05/03/22 TSH 0.620 uIU/mL (0.300-4.200) 12/30/24 15:47 12/30/24 COAG PT 16.6 SECONDS (11.7-14.9) H 06/17/24 18:42 06/17/24 Pre-Assessment Diagnosis/Proposed Procedure Planned Operative Procedure(s): COLONOSCOPY, EGD Anesthesia History Anesthesia History - color maker formulator: Anesthesia History - color maker formulator Hx Hospitalization No 03/22/25 15:42 Any Problems With Anesthesia No 03/22/25 15:42 Cholinesterase deficiency No 03/22/25 15:42 You/Your Family Experience No 03/22/25 15:42 fever (hyperthermia) with Relationship Recent Exposure to Contagious No 03/23/25 09:29 Disease Does patient have nerve No 03/22/25 15:42 stimulator Patient instructed to have device shut off --Does patient have Pacemaker No 03/23/25 09:29 or ICD? When Was Last Pacemaker Check QUESTION #4 FULL TEXT: You/Your Family Experience fever (hyperthermia) with Anesthesia Last Oral Intake Last Oral intake: Last Oral Intake NPO since 00:00 03/23/25 09:29 Meds taken in AM with sips of No 03/23/25 09:29 water? Meds patient instructed to take am of surgery PONV PONV - color maker formulator: PONV - color maker formulator Female Yes 03/22/25 15:42 HX of Motion Sickness No 03/22/25 15:42 HX of N/V After Surgery No 03/22/25 15:42 Non-Smoker Yes 03/22/25 15:42 Duration of Surgery greater No 03/22/25 15:42 than 60 minutes Number of Risk Factors 2 03/22/25 15:42 PONV Score Moderate Risk 03/22/25 15:42 Height & Weight Height & Weight: Anesthesia: Height & Weight Height 5 ft 03/23/25 09:29 Weight: 60 kg 03/23/25 09:29 Body Mass Index (BMI) 25.8 03/23/25 09:29 Respiratory Assessment Respiratory Assessment - color maker formulator: Respiratory Tract Infection Hx - color maker formulator Hx Respiratory Tract Infection No 03/22/25 15:42 STOP Sleep Apnea STOP Sleep Apnea - color maker formulator: STOP Sleep Apnea - color maker formulator Hx Hypertension Yes 03/22/25 15:42 Hx Sleep Apnea Yes 03/22/25 15:42 CPAP No 03/22/25 15:42 BIPAP No 03/22/25 15:42 Do you snore loudly (louder than talking or can be heard Do you often feel tired/ fatigued/ sleepy during daytime? Has anyone observed you stop breathing during sleep? STOP Results Positive 03/22/25 15:42 QUESTION #5 FULL TEXT : Do you snore loudly (louder than talking or can be heard through closed doors)? 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 Specify any problems Hx of Preganancy in last 3 No 03/22/25 15:42 Months Nurse Filling Out Transfusion [email or web address] 03/22/25 15:42 & Questions: Date: 03/22/25 03/22/25 15:42 Time: 15:48 03/22/25 15:42 Patient unable to answer at this time (ie. confused, unrespo /Reproduction History /Reproductive History - color maker formulator: /Reproductive Hx- color maker formulator Hx Now No 06/17/25 15:42 Gestational Age (in weeks): EDC: Hx Hx Para Hx Section SAB Active Medications Active Medications: Current Medications Generic Name Dose Route Start Last Admin Trade Name Freq PRN Reason Stop Dose Admin Lactated Ringer's 1,000 mls @ 15 mls/hr 03/23/25 09:15 IV .Q48H [facility] PFSH Medical History Smoker Fall Hypoglycemia Hypoglycemia CKD (chronic kidney disease) stage 3, GFR 30-59 ml/min Former smoker Sleep apnea COPD (chronic obstructive pulmonary disease) Tobacco abuse Right knee pain Noncompliance w/medication treatment due to intermit use of medication CVA (cerebral vascular accident) Vertigo Constipation Flu vaccine need Noncompliance Hypertension Right hip pain Acute infarct right urban radiata Fall Type 2 diabetes mellitus Hypothyroidism Vision problems Thyroid disease High blood pressure Hearing problem Diabetes Carpal tunnel syndrome Breast cancer Asthma Arthritis Home Medications ?Medication ?Instructions ?Recorded ?Last Taken ?Type amlodipine 10 mg tablet 1 tab PO DAILY blood pressure 04/29/22 Unknown History carvedilol 12.5 mg tablet 1 tab PO DAILY blood pressure 04/29/22 Unknown History cholecalciferol (vitamin D3) 50 1 tab PO DAILY supplement 04/29/22 Unknown History mcg (2,000 unit) tablet citalopram 10 mg tablet 1 tab PO DAILY depression 04/29/22 Unknown History clopidogrel 75 mg tablet 1 tab PO DAILY antiplatelet 04/29/22 Unknown History Held on 03/22/25. Instructions: SINCE 05/08/24 anastrozole 1 mg tablet 1 mg PO DAILY 06/17/24 Unknown History bisacodyl 10 mg rectal suppository 10 mg NE DAILY PRN constipation 06/17/24 Unknown History calcium carbonate (Calcium 500) 500 mg PO DAILY 06/17/24 Unknown History lisinopril 30 mg tablet 30 mg PO DAILY 06/17/24 Unknown History magnesium hydroxide 400 mg/5 mL 30 ml PO DAILY PRN constipation 06/17/24 Unknown History oral suspension (Milk of Magnesia) ondansetron HCl 4 mg tablet 4 mg PO Q6H PRN nausea and vomiting 06/17/24 Unknown History peg 3350-electrolytes 236 240 ml PO Q10M #4,000 mL 12/30/24 Unknown Rx gram-22.74 gram-6.74 gram-5.86 gram solution (Golytely) acetaminophen 500 mg capsule 1,000 mg PO Q8H PRN pain 03/22/25 Unknown History calcium carbonate (Calcium 500) 500 mg PO Q4H PRN PRN indigestion 03/22/25 Unknown History dextrose 40 % oral gel (Glucose 15 g PO Q15M PRN hypoglycemia 03/22/25 Unknown History Gel) doxazosin 1 mg tablet 1 mg PO DAILY 03/22/25 Unknown History glucagon 1 mg/0.2 mL subcutaneous 1 mg subcut PRN 03/22/25 Unknown History auto-injector insulin glargine 100 unit/mL (3 10 unit subcut QHS 03/22/25 Unknown History mL) subcutaneous pen (Basaglar KwikPen U-100 Insulin) levothyroxine 88 mcg tablet 88 mcg PO DAILY 03/22/25 Unknown History mineral oil (Fleet Mineral Oil 118 ml NE DAILY PRN constipation 03/22/25 Unknown History enema) Allergy/AdvReac Type Severity Reaction Status Date / Time aspirin Allergy Unknown Nausea Verified 03/23/25 09:29 albuterol AdvReac I GET VERY Verified 03/23/25 09:29 SHAKEY/HYPERVENTILATING Penicillins AdvReac Nausea/Vom/ Verified 03/23/25 09:29 Diarrhea Family History Father Cancer bone cancer Brother Heart disease Surgical History History of section H/O mastectomy History of appendectomy Social History household members: spouse Smoking Status: Former smoker Tobacco: How many years used: 50 alcohol intake: never substance use type: marijuana and other details: smokes 4 joints a day Review of Systems (Anesthesia) ROS Narrative System reviewed and no additional complaints, except as documented.
--- NOTE | 2025-03-23 10:00 | EGD_PTH ---
PATIENT: MELODY HUGGINS LOC: [facility] U#:[id number] AGE/SX: 69/F ROOM: RE03/23/[address]: Dr. Neftali Interiano DO : 1955 BED: DIS: 03/23/2025 SPEC #: [id number] RECD: 03/23/25 13:05 STATUS: BETSY CROW #: [id number] NESTOR: 03/23/25 10:[address]: Neftali Interiano DEPT: SURGICAL PATHOLOGY RECD BY: Jorge Ware ENTERED: 03/23/25 14:00 SP TYPE: EGD BIOPSY MICHAEL DR: Dr. Allen Obrien MD Tissues: A - Esophagus, NOS B - Duodenum, NOS C - Duodenum, NOS D - COLON BIOPSY E - Transverse colon Procedures: Surgery Specimen Level IV HEADER OPERATION: Colonoscopy, EGD and biopsy and polypectomy PRE-OP DIAGNOSIS: Abdominal pain, weight loss TISSUE SUBMITTED: A- Distal esophagus biopsy, B- Duodenal biopsy, C- Duodenal lipoma, D- Hepatic flexure polyp, E- Transverse colon polyp MICROSCOPIC DIAGNOSIS A. Distal esophagus, biopsy: Oxyntic mucosa, negative for goblet cell metaplasia. Scant squamous mucosa with reactive changes. B. Duodenum, biopsy: Normal villous architecture with gastric mucin cell metaplasia and mild acute inflammation, suggestive of peptic injury. C. Duodenum, lipoma, biopsy: Normal villous architecture with Garfield gland hyperplasia - see note. Note: A lipoma is not observed in these sections. A lesion deep to the biopsy cannot be ruled out. D. Hepatic flexure, colon, polyp, biopsy: Tubular adenoma. E. Transverse colon, polyp, biopsy: Multiple fragments of polyp - see note. Note: The findings are suggestive of a sessile serrated lesion, however, marked cautery artifact interferes with the assessment. A low grade dysplasia cannot be excluded. MICROSCOPIC DESCRIPTION Slides are reviewed. GROSS DESCRIPTION A. Received in fixative is one container labeled with the patient's name and designated Distal esophagus biopsy. The specimen consists of two irregular fragments of light bella soft tissue, each measuring 0.4 cm. The specimen is totally submitted in one cassette. B. Received in fixative is one container labeled with the patient's name and designated Duodenal biopsy. The specimen consists of one irregular fragment of light bella soft tissue that measures 0.5 cm. The specimen is totally submitted in one cassette. C. Received in fixative is one container labeled with the patient's name and designated Duodenal lipoma. The specimen consists of one irregular fragment of light bella soft tissue that measures 0.5 cm. The specimen is totally submitted in one cassette. D. Received in fixative is one container labeled with the patient's name and designated Hepatic flexure polyp. The specimen consists of one irregular fragment of light bella soft tissue that measures 0.4 cm. The specimen is totally submitted in one cassette. E. Received in fixative is one container labeled with the patient's name and designated Transverse colon polyp. The specimen consists of two irregular fragments of light bella soft tissue, each measuring 0.3 cm. The specimen is totally submitted in one cassette. Rafael 03/23/2025 CPT:49617w6
[2025-03-23 11:00] LABS: Bedside Glucose 125 mg/dL (74-106)
--- NOTE | 2025-03-23 11:05 | PCM.POST.ANE ---
Anesthesia: Postop Eval I Current Vital Signs Temperature: 97 F Pulse Rate: 68 Blood Pressure: 126/64 Respiratory Rate: 16 Pulse Ox: 98 Oxygen Delivery Method: Room Air Assessment Airway patent: Yes Spontaneous unlabored respirations: Yes Mental status: Awake and Calm nausea: No Vomiting: No Anesthesia Complication: No Fluid Hydration Crystalloid volume administer (ml): 600 Total IV fluid infused: 600 Progress Note Anesthesia document: Postop Eval 1 completed: Yes
--- NOTE | 2025-03-23 11:06 | OP.CCLET_ITS ---
03/23/2025 Allen Obrien MD [address] [id number] Re : Upper GI endoscopy procedure for Carmen Dale Dear Dr. Obrien This procedure was performed on Sunday, March 23, 2025. My impressions and recommendations are as follows: Impressions : - Z-line irregular, 39 cm from the incisors. Biopsied. - Normal stomach. - Chronic duodenitis. Biopsied. - Duodenal lipoma. Biopsied. Recommendations : - Discharge patient to home. - Resume previous diet. - Continue present medications. My findings are described in the full procedure note, which is enclosed. If I can be of further assistance, please feel free to contact me at . Sincerely, Neftali Interiano, 03/23/2025 11:05:40 AM This report has been signed electronically.
--- NOTE | 2025-03-23 11:06 | OP.EGD_ITS ---
Patient Name: Carmen Dale Procedure Date: 03/23/2025 10:16 AM Date of : 1955 Age: 69 Procedure: Upper GI endoscopy Indications: Epigastric abdominal pain, Iron deficiency anemia Providers: Neftali Interiano DO Medicines: Monitored Anesthesia Care Patient Profile: This is a 69 year old female. Refer to note in patient chart for documentation of history and physical. Patient has symptoms of chronic abdominal distention, chronic dyspepsia and chronic nausea. Complications: No immediate complications. Procedure: Pre-Anesthesia Assessment: - Prior to the procedure, a History and Physical was performed, and patient medications and allergies were reviewed. The patient is competent. The risks and benefits of the procedure and the sedation options and risks were discussed with the patient. All questions were answered and informed consent was obtained. Patient identification and proposed procedure were verified by the physician in the pre-procedure area. Mental Status Examination: alert and oriented. Airway Examination: normal oropharyngeal airway and neck mobility. Respiratory Examination: clear to auscultation. CV Examination: normal. Prophylactic Antibiotics: The patient does not require prophylactic antibiotics. Prior Anticoagulants: The patient has taken no anticoagulant or antiplatelet agents except for NSAID medication. ASA Grade Assessment: II - A patient with mild systemic disease. After reviewing the risks and benefits, the patient was deemed in satisfactory condition to undergo the procedure. The anesthesia plan was to use monitored anesthesia care (MAC). Immediately prior to administration of medications, the patient was re-assessed for adequacy to receive sedatives. The heart rate, respiratory rate, oxygen saturations, blood pressure, adequacy of pulmonary ventilation, and response to care were monitored throughout the procedure. The physical status of the patient was re-assessed after the procedure. After obtaining informed consent, the endoscope was passed under direct vision. Throughout the procedure, the patient's blood pressure, pulse, and oxygen saturations were monitored continuously. The Colonoscope was introduced through the mouth, and advanced to the fourth part of the duodenum. Small bowel enteroscopy was deemed necessary. The upper GI endoscopy was accomplished without difficulty. The patient tolerated the procedure well. Scope In: 10:30:18 AM Scope Out: 10:34:26 AM Total Procedure Duration Time 0 hours 4 minutes 8 seconds Findings: The Z-line was irregular and was found 39 cm from the incisors. Biopsies were taken with a cold forceps for histology. Verification of patient identification for the specimen was done. Estimated blood loss was minimal. The entire examined stomach was normal. Patchy mild inflammation characterized by erosions and erythema was found in the entire duodenum. Biopsies were taken with a cold forceps for histology. Verification of patient identification for the specimen was done. Estimated blood loss was minimal. There was a medium-sized lipoma, 8 mm in diameter, in the second portion of the duodenum. Biopsies were taken with a cold forceps for histology. Verification of patient identification for the specimen was done. Estimated blood loss was minimal. Impression: - Z-line irregular, 39 cm from the incisors. Biopsied. - Normal stomach. - Chronic duodenitis. Biopsied. - Duodenal lipoma. Biopsied. Recommendation: - Discharge patient to home. - Resume previous diet. - Continue present medications. Procedure Code(s): --- Professional --- 44910, Small intestinal endoscopy, enteroscopy beyond second portion of duodenum, not including ileum; with biopsy, single or multiple CPT copyright 2021 [employer]. All rights reserved. The codes documented in this report are preliminary and upon inpatient coder review may be revised to meet current compliance requirements. Neftali Interiano DO 03/23/2025 11:05:40 AM This report has been signed electronically. Number of Addenda: 0 Note Initiated On: 03/23/2025 10:16 AM
--- NOTE | 2025-03-23 11:08 | OP.COLON_ITS ---
Patient Name: Carmen Dale Procedure Date: 03/23/2025 10:34 AM Date of : 1955 Age: 69 Procedure: Colonoscopy Indications: Screening for colorectal malignant neoplasm Providers: Neftali Interiano DO Medicines: Monitored Anesthesia Care Patient Profile: This is a 69 year old female. Refer to note in patient chart for documentation of history and physical. Patient has symptoms of chronic abdominal distention, chronic dyspepsia and chronic nausea. Last Colonoscopy: 10 years ago. Complications: No immediate complications. Procedure: Pre-Anesthesia Assessment: - Prior to the procedure, a History and Physical was performed, and patient medications and allergies were reviewed. The patient is competent. The risks and benefits of the procedure and the sedation options and risks were discussed with the patient. All questions were answered and informed consent was obtained. Patient identification and proposed procedure were verified by the physician in the pre-procedure area. Mental Status Examination: alert and oriented. Airway Examination: normal oropharyngeal airway and neck mobility. Respiratory Examination: clear to auscultation. CV Examination: normal. Prophylactic Antibiotics: The patient does not require prophylactic antibiotics. Prior Anticoagulants: The patient has taken no anticoagulant or antiplatelet agents except for NSAID medication. ASA Grade Assessment: II - A patient with mild systemic disease. After reviewing the risks and benefits, the patient was deemed in satisfactory condition to undergo the procedure. The anesthesia plan was to use monitored anesthesia care (MAC). Immediately prior to administration of medications, the patient was re-assessed for adequacy to receive sedatives. The heart rate, respiratory rate, oxygen saturations, blood pressure, adequacy of pulmonary ventilation, and response to care were monitored throughout the procedure. The physical status of the patient was re-assessed after the procedure. After I obtained informed consent, the scope was passed under direct vision. Throughout the procedure, the patient's blood pressure, pulse, and oxygen saturations were monitored continuously. The Colonoscope was introduced through the anus and advanced to the terminal ileum. The colonoscopy was performed without difficulty. The patient tolerated the procedure well. The quality of the bowel preparation was adequate. The ileocecal valve, appendiceal orifice, and rectum were photographed. Scope In: 10:36:10 AM Scope Withdrawal Time 0 hours 12 minutes 28 seconds Scope Out: 10:55:39 AM Total Procedure Duration Time 0 hours 19 minutes 29 seconds Findings: The perianal and digital rectal examinations were normal. A few small-mouthed diverticula were found in the recto-sigmoid colon and sigmoid colon. An 8 mm polyp was found in the transverse colon. The polyp was sessile. The polyp was removed with a hot snare. Resection and retrieval were complete. Verification of patient identification for the specimen was done. Estimated blood loss was minimal. A 4 mm polyp was found in the ascending colon. The polyp was sessile. The polyp was removed with a jumbo cold forceps. Resection and retrieval were complete. Verification of patient identification for the specimen was done. Estimated blood loss was minimal. Impression: - Diverticulosis in the recto-sigmoid colon and in the sigmoid colon. - One 8 mm polyp in the transverse colon, removed with a hot snare. Resected and retrieved. - One 4 mm polyp in the ascending colon, removed with a jumbo cold forceps. Resected and retrieved. Recommendation: - Repeat colonoscopy in 5 years for surveillance. - Continue present medications. Procedure Code(s): --- Professional --- 10932, Colonoscopy, flexible; with removal of tumor(s), polyp(s), or other lesion(s) by snare technique 30145, 59, Colonoscopy, flexible; with biopsy, single or multiple CPT copyright 2021 [employer]. All rights reserved. The codes documented in this report are preliminary and upon astrobiologist review may be revised to meet current compliance requirements. Neftali Interiano DO 03/23/2025 11:07:59 AM This report has been signed electronically. Number of Addenda: 0 Note Initiated On: 03/23/2025 10:34 AM
--- NOTE | 2025-03-23 11:08 | OP.CCLET_ITS ---
03/23/2025 Allen Obrien MD [address] [id number] Re : Colonoscopy procedure for Carmen Dale Dear Dr. Obrien This procedure was performed on Sunday, March 23, 2025. My impressions and recommendations are as follows: Impressions : - Diverticulosis in the recto-sigmoid colon and in the sigmoid colon. - One 8 mm polyp in the transverse colon, removed with a hot snare. Resected and retrieved. - One 4 mm polyp in the ascending colon, removed with a jumbo cold forceps. Resected and retrieved. Recommendations : - Repeat colonoscopy in 5 years for surveillance. - Continue present medications. My findings are described in the full procedure note, which is enclosed. If I can be of further assistance, please feel free to contact me at . Sincerely, Neftali Interiano, 03/23/2025 11:07:59 AM This report has been signed electronically.
--- NOTE | 2025-03-23 16:12 | PCM.POSTANE2 ---
Anesthesia Postop Eval I Sum Postop Eval Completion status Anesthesia document: Postop Eval 1 completed: Yes Anesthesia Postop Eval I Summary Anesthesia Postop Eval I Summary: Anesthesia Postop Eval I: Assessment Summary Airway patent Yes 03/23/25 11:06 [email or web address] Spontaneous unlabored Yes 03/23/25 11:06 [email or web address] respirations Mental status Awake,Calm 03/23/25 11:06 [email or web address] nausea No 03/23/25 11:06 [email or web address] Vomiting No 03/23/25 11:06 [email or web address] Anesthesia Postop Eval I: Fluid Summary Crystalloid volume administer 600 03/23/25 11:06 [email or web address] (ml) Colloids volume administered ( ml) Blood Product volume administered (ml) Total IV fluid infused 600 03/23/25 11:06 [email or web address] Anesthesia Postop Eval I: Summary Notes Anesthesia Complication No 03/23/25 11:06 [email or web address] Anesthesia Complication Comment: Post-operative progress note Anesthesia: Postop Eval II Evaluation Mental status: Awake Pain Level: 0 nausea: No Vomiting: No
== END 2025-03-23 11:50 | disposition skilled nursing facility (03) ==
LOC: EN 08:53 → AC 08:56
PROVIDERS: PCP Family Medicine; Referring Provider Family Medicine; Visit Provider Internal Medicine Gastroenterology
PROC: 0DJD8ZZ Inspection of Lower Intestinal Tract, Via Natural or Artificial Opening Endoscopic (ICD-10-PCS; CPT 45378; principal; 2025-03-23 09:55)
DX: Z12.11 Encounter for screening for malignant neoplasm of colon (principal); J44.9 Chronic obstructive pulmonary disease, unspecified; E11.22 Type 2 diabetes mellitus with diabetic chronic kidney disease; N18.30 Chronic kidney disease, stage 3 unspecified; K29.80 Duodenitis without bleeding; D50.9 Iron deficiency anemia, unspecified; I12.9 Hypertensive chronic kidney disease with stage 1 through stage 4 chronic kidney disease, or unspecified chronic kidney disease; K57.30 Diverticulosis of large intestine without perforation or abscess without bleeding; Z85.3 Personal history of malignant neoplasm of breast; R63.4 Abnormal weight loss; R74.8 Abnormal levels of other serum enzymes; R93.89 Abnormal findings on diagnostic imaging of other specified body structures; Z87.891 Personal history of nicotine dependence; F40.240 Claustrophobia; Z86.73 Personal history of transient ischemic attack (TIA), and cerebral infarction without residual deficits; E03.9 Hypothyroidism, unspecified; F12.90 Cannabis use, unspecified, uncomplicated; D12.3 Benign neoplasm of transverse colon
CPT/HCPCS: 45380; 45385; 43239; 82962; 88305; 93005; J2405

== ENCOUNTER 2025-08-07 01:54 | Inpatient (IN) | payer MEDICAID, SELFPAY ==
[2025-08-07] VITALS (16 sets, daily range): BP systolic 131–171; BP diastolic 67–87; PULSE 70–93; RESP 14–24; TEMP 36.2–37.1; O2SAT 89–98; BMI 29.3; BMI 26.6
--- NOTE | 2025-08-07 01:09 | EKG12_ITS ---
Test Reason : SOB
--- NOTE | 2025-08-07 01:11 | EX.ED.DYSGE1 ---
HPI History of Present Illness Chief Complaint: Shortness of Breath Informant: patient, EMS and SNF Narrative Narrative: Patient is a 70[place]year-old [place] with past medical history of COPD who quit smoking roughly 1 year ago but states she smoked anywhere from 1 to 3 packs a day for 50 years or so. She states she does not typically require oxygen at baseline. She also has history of hypertension hyperlipidemia hypothyroidism and insulin-dependent diabetes. She states that she does not typically get around well and uses her wheelchair more so than walking. She denies any known sick contacts or recent fevers or chills. However this evening had increased shortness of breath and nursing reports pulse ox was low at 83% on room air. Secondary to this EMS was called. They placed the patient on nasal cannula oxygen and her sats improved into the mid 90s and she was given 1 DuoNeb treatment prior to arrival. Patient does states she is feeling better upon arrival to the ER [facility] Medical History Smoker Fall Hypoglycemia Hypoglycemia CKD (chronic kidney disease) stage 3, GFR 30-59 ml/min Former smoker Sleep apnea COPD (chronic obstructive pulmonary disease) Tobacco abuse Right knee pain Noncompliance w/medication treatment due to intermit use of medication CVA (cerebral vascular accident) Vertigo Constipation Flu vaccine need Noncompliance Hypertension Right hip pain Acute infarct right urban radiata Fall Type 2 diabetes mellitus Hypothyroidism Vision problems Thyroid disease High blood pressure Hearing problem Diabetes Carpal tunnel syndrome Breast cancer Asthma Arthritis Home Medications ?Medication ?Instructions ?Recorded ?Last Taken ?Type amlodipine 10 mg tablet 1 tab PO DAILY blood pressure 04/29/22 Unknown History carvedilol 12.5 mg tablet 1 tab PO DAILY blood pressure 04/29/22 Unknown History cholecalciferol (vitamin D3) 50 1 tab PO DAILY supplement 04/29/22 Unknown History mcg (2,000 unit) tablet citalopram 10 mg tablet 1 tab PO DAILY depression 04/29/22 Unknown History clopidogrel 75 mg tablet 1 tab PO DAILY antiplatelet 04/29/22 Unknown History anastrozole 1 mg tablet 1 mg PO DAILY 06/17/24 Unknown History bisacodyl 10 mg rectal suppository 10 mg NM DAILY PRN constipation 06/17/24 Unknown History calcium carbonate (Calcium 500) 500 mg PO DAILY 06/17/24 Unknown History lisinopril 30 mg tablet 30 mg PO DAILY 06/17/24 Unknown History magnesium hydroxide 400 mg/5 mL 30 ml PO DAILY PRN constipation 06/17/24 Unknown History oral suspension (Milk of Magnesia) ondansetron HCl 4 mg tablet 4 mg PO Q6H PRN nausea and vomiting 06/17/24 Unknown History peg 3350-electrolytes 236 240 ml PO Q10M #4,000 mL 12/30/24 Unknown Rx gram-22.74 gram-6.74 gram-5.86 gram solution (Golytely) acetaminophen 500 mg capsule 1,000 mg PO Q8H PRN pain 03/22/25 Unknown History calcium carbonate (Calcium 500) 500 mg PO Q4H PRN PRN indigestion 03/22/25 Unknown History dextrose 40 % oral gel (Glucose 15 g PO Q15M PRN hypoglycemia 03/22/25 Unknown History Gel) doxazosin 1 mg tablet 1 mg PO DAILY 03/22/25 Unknown History glucagon 1 mg/0.2 mL subcutaneous 1 mg subcut PRN 03/22/25 Unknown History auto-injector insulin glargine 100 unit/mL (3 10 unit subcut QHS 03/22/25 Unknown History mL) subcutaneous pen (Basaglar KwikPen U-100 Insulin) levothyroxine 88 mcg tablet 88 mcg PO DAILY 03/22/25 Unknown History mineral oil (Fleet Mineral Oil 118 ml NM DAILY PRN constipation 03/22/25 Unknown History enema) Allergy/AdvReac Type Severity Reaction Status Date / Time aspirin Allergy Unknown Nausea Verified 07/29/25 14:33 albuterol AdvReac I GET VERY Verified 07/29/25 14:33 SHAKEY/HYPERVENTILATING Penicillins AdvReac Nausea/Vom/ Verified 07/29/25 14:33 Diarrhea Family History Father Cancer bone cancer Brother Heart disease Surgical History History of section H/O mastectomy History of appendectomy Social History household members: spouse Smoking Status: Former smoker Tobacco: How many years used: 50 alcohol intake: never substance use type: marijuana and other details: smokes 4 joints a day ROS ROS ED Constitutional Constitutional ED: Denies chills or fever(s) Eyes Eyes: Denies blurry vision or change in vision ENT ENT ED: Denies rhinorrhea or sore throat Cardiovascular Cardiovascular: Denies chest pain, palpitations or racing heartbeat Respiratory/Chest Respiratory/Chest: Reports cough, dyspnea and dyspnea on exertion Gastrointestinal Gastrointestinal: Denies abdominal pain, diarrhea, nausea or vomiting Musculoskeletal Musculoskeletal: Denies myalgias Integumentary Denies rash Neurologic Neurologic: Denies headache(s) Hematologic/Lymphatic Hematologic/Lymphatic: Denies easy bleeding or easy bruising EXAM Physical Exam Const Vital Signs: 08/07/25 01:56 EDT 08/07/25 01:01 EST 08/07/25 01:05 EST Temperature 98.1 F Temperature Source Oral Pulse Rate 91 Respiratory Rate 24 H Respiratory Effort Normal Respiratory Depth Normal Respiratory Pattern Normal Blood Pressure 154/82 H Blood Pressure Mean 106 Pulse Ox 89 92 Oxygen Delivery Method Room Air Room Air Nasal Cannula Oxygen Flow Rate (L/min) 1 08/07/25 01:20 EST 08/07/25 01:55 EST 08/07/25 01:59 EST Temperature 97.9 F Temperature Source Oral Pulse Rate 91 92 89 Respiratory Rate 22 H 16 16 Respiratory Effort Respiratory Depth Respiratory Pattern Tachypnea Blood Pressure 168/82 H 169/86 H Blood Pressure Mean 110 113 Pulse Ox 90 93 Oxygen Delivery Method Nasal Cannula Nasal Cannula Oxygen Flow Rate (L/min) 1 1 08/07/25 03:00 08/07/25 03:41 08/07/25 03:48 Temperature 97.9 F 98.7 F 97.9 F Temperature Source Oral Oral Pulse Rate 90 92 93 Respiratory Rate 17 16 19 H Respiratory Effort Respiratory Depth Respiratory Pattern Blood Pressure 169/87 H 161/73 H 171/75 H Blood Pressure Mean 114 102 107 Pulse Ox 91 91 91 Oxygen Delivery Method Nasal Cannula Nasal Cannula Oxygen Flow Rate (L/min) 1 1 Positive well nourished and well developed General Appearance ED: well developed; Negative for pallor HEENT HEENT Narrative: Normocephalic atraumatic No tongue or lip swelling no oral lesions no airway edema or compromise Cobblestoning is noted in the posterior pharynx consistent with sinus drainage; no secondary findings to suggest infection Eyes PERRL and EOMs intact bilaterally General Eye ED: Negative for scleral icterus Neck supple and no JVD Resp Resp Narrative: Patient is tachypneic and breath sounds are diminished throughout with faint diffuse expiratory wheezing and rhonchi in bilateral bases Cardio regular rate and regular rhythm Rate: other Other Details: Radial and carotid pulses are equal and symmetric GI normal to inspection, nondistended, normoactive bowel sounds, non-tender, non-distended and no masses GI Narrative: No voluntary guarding or rigidity or pulsatile mass No fluid wave No peritoneal signs Auscultation: normoactive bowel sounds Palpation: soft Extremity Extremity Narrative: Trace pitting edema to the bilateral lower extremities that is equal and symmetric Negative Homans' sign bilaterally Neuro oriented x3 and CN's II-XII intact bilaterally Sensorium / Orientation: alert Psych mental status grossly normal Skin no rashes or lesions noted General Skin Exam: Negative for jaundice or pallor MDM MDM MDM Narrative Medical decision making narrative: Patient arrived to the ER satting in the mid 90s on just 1 to 2 L nasal cannula oxygen and overall was in no acute distress. However as she has a history of COPD and nursing reported her pulse ox was 83% on room air without baseline needed supplemental oxygen there is concern that patient is has developed congestive heart failure versus viral infection such as COVID influenza RSV or potential pneumonia or pneumothorax. Hypoxia could also be associated with acute blood loss anemia or acute kidney injury. Basic blood work was obtained and showed a white count of essentially 23 with left shift at 20. These values would indicate potential infection. Chest x-ray is obtained to assess for lung pathology with did not reveal any acute findings such as volume overload or pneumonia. However her proBNP is elevated at 2130 and with concern for missed vascular congestion or infiltrate a CT of the chest was ordered. This revealed no pleural effusion or pulmonary vascular congestion but did show bilateral lower lobe pneumonia greatest on the left. This would correlate with the leukocytosis and left shift as well as hypoxia. At this time she is not triggering sepsis protocol she is not hypotensive or tachycardic or febrile and her lactic is less than 1. However as she has significant past medical issues such as insulin-dependent diabetes and COPD I feel that she would benefit from admission to the hospital with IV antibiotics and to ensure that she is showing improvement and moving away from supplemental oxygen as she typically does not require this. Therefore discussed the case with the hospitalist who does agree to accept the patient to her service for continued care. As the patient is not showing signs of sepsis we will hold off on blood cultures at this time. History & Record Review Discussion w/independent historian: Patient and Family Lab Data Attestation: I reviewed the patient's lab results. Labs: Laboratory Results - last 24 hr 08/07/25 08/07/25 08/07/25 01:02 EST 01:40 EST 01:55 EST WBC 22.7 H RBC 4.77 Hgb 11.9 L Hct 37.9 MCV 79.5 L MCH 24.9 L MCHC 31.4 L RDW Std Deviation 40.6 RDW Coeff of [place] 14.0 Plt Count 344 MPV 10.3 Immature Gran % (Auto) 0.700 Neut % (Auto) 87.9 H Lymph % (Auto) 6.1 L [place] % (Auto) 4.2 Eos % (Auto) 0.7 Baso % (Auto) 0.4 Absolute Neuts (auto) 19.9 H Absolute Lymphs (auto) 1.39 Nucleated RBC % 0 Sodium 141 Potassium 3.7 Chloride 105 Carbon Dioxide 24.0 Anion Gap 12 BUN 20 H Creatinine 1.54 H Estim Creat Clear Calc 28.87 L Est GFR (MDRD) Non-Af 36 L BUN/Creatinine Ratio 13.2 Glucose 148 H Lactic Acid < 1.0 Calcium 9.6 Magnesium 1.8 NT pro BNP II 2130 H Procalcitonin 0.07 Urine Color Yellow Urine Clarity Clear Urine pH 6.0 Ur Specific [place] 1.015 Urine Protein 100 H Urine Glucose (UA) Normal Urine Ketones Negative Urine Occult Blood 25 H Urine Nitrite Negative Urine Bilirubin Negative Urine Urobilinogen Normal Ur Leukocyte Esterase Negative Urine RBC 0-5 SEEN Urine WBC 0-5 SEEN Ur Squamous Epith Cells 0-5 SEEN Ur Renal Epithelial Cell 0-5 SEEN Amorphous Sediment 1+ Urine Bacteria RARE Hyaline Casts 0-5 SEEN Fine Granular Casts 0-5 SEEN Urine Mucus RARE Radiography Diagnostic Testing: Clinical Impression(s) from Imaging Studies Chest X-Ray 08/07/25 01:39 EST IMPRESSION: No evidence of acute cardiopulmonary disease. Reading Location: [id number] Chest CT 08/07/25 02:04 IMPRESSION: Patchy foci of airspace consolidation bilaterally, predominantly in the posterior left lung base compatible with pneumonia. No pleural effusions. Mild reactive mediastinal adenopathy. Reading Location: [facility] Chest x-ray as interpreted by the emergency medicine physician reveals no acute infiltrate pneumothorax or pleural effusion Management Discussion w/another healthcare provider: Hospitalist Discharge Plan Dx/Rx/DC Orders Clinical Impression: Bilateral pneumonia, Hypoxia, Insulin dependent diabetes mellitus, Hypertension, Hyperlipidemia Disposition Disposition: Acute Care Hospital [facility]
[2025-08-07 01:17] LABS: Hematocrit 37.9 % (37-47); Hemoglobin 11.9 g/dL (12.0-15.0); Immature Granulocytes Count 0.160 X10^3/uL (0.0-0.0); Mean Corp Hgb Conc 31.4 g/dL (32-36); Mean Corpuscular Volume 79.5 fL (81-99); Mean Platelet Vol. 10.3 fl (6.2-12.0); NRBC Flagged by Analyzer 0 % (0-5); Platelet Count 344 K/mm3 (150-450); RBC Distribution Width CV 14.0 % (11.6-14.6); RBC Distribution Width SD 40.6 fl (35.1-43.9); Red Blood Count 4.77 M/mm3 (4.2-5.4); White Blood Count 22.7 K/mm3 (4.4-11.0)
--- NOTE | 2025-08-07 01:39 | RAD_ITS ---
PROCEDURE: RAD/Chest 1 View (Portable)
[2025-08-07 01:45] LABS: Magnesium 1.8 mg/dL (1.5-2.2); Pro- Brain NATRIURETIC PEPTIDE 2130 pg/mL (<=900)
[2025-08-07 01:52] LABS: Anion Gap 12 (5-15); BUN 20 mg/dL (4-19); BUN/Creat Ratio 13.2 RATIO (10-20); Calcium,Total 9.6 mg/dL (7.6-11.0); Carbon Dioxide 24.0 mmol/L (21.0-32.0); Chloride 105 mmol/L (98-108); Estimated Creatinine Clearance 28.87 ml/min (50-250); Glucose 148 mg/dL (70-99); Potassium 3.7 mmol/L (3.3-5.1)
[2025-08-07 02:00] LABS: Glucose, Dipstick Normal (Normal); Ketone-Dipstick Negative (Negative); Leukocyte Esterase-Dipstick Negative /ul (Negative); Nitrite-Dipstick Negative (Negative); Occult Blood-Urine 25 /ul (Negative); Protein-Dipstick 100 mg/dl (Negative); Specific Gravity, Urine 1.015 (1.002-1.030); Urine Bilirubin Dipstick Negative (Negative)
--- NOTE | 2025-08-07 02:04 | CT_ITS ---
PROCEDURE: CT/Chest without Contrast
[2025-08-07 02:05] LABS: Color, Urine Yellow (Yellow)
[2025-08-07 02:10] LABS: Fine Granular Cast- Urine 0-5 SEEN /lpf (0-5); Mucous, Urine RARE /hpf (<or=2+); Red Blood Cells-Urine 0-5 SEEN /hpf (0-5); Squamous Epithelial Cells - UA 0-5 SEEN /hpf (5-10)
[2025-08-07 02:13] LABS: Procalcitonin 0.07 ng/mL (<=0.10)
--- NOTE | 2025-08-07 03:32 | PCM.HP.STD ---
HPI - General General Date of Admission: 08/07/25 Date of Service: 08/07/25 Chief Complaint: Dyspnea, cough, wheezing. HPI Narrative The patient is a 70 y/o F w/ PMHx: Hx CVA, SYLVIE not using PAP therapy, Obesity, Chronic microcytic anemia, CKD stage III unclear subtype per GFR trending, Diabetes mellitus type II, Anxiety and Depression, Hx Breast CA unclear type, HTN, HLD, Hypothyroidism, Former tobacco use, COPD/Asthma who presents to the [facility] ED on 08/07/2025 with history of residing in a senior care not typically on oxygen at baseline with recent increase of shortness of breath with notable fatigue, malaise, productive cough, wheezing with reported pulse oximeter at the skilled facility of 83% with no recent fever, chills and no recent ill contacts but given hypoxia prompted ED evaluation to be cautious. Workup in the ED included T98.1, heart rate 91, BP 154/82, respiratory rate 24, 89% on room air with improvement to 92% on 1 L nasal cannula with most recent repeat vitals heart rate 92, BP 168/82, respiratory rate 16, 90% on 1 L nasal cannula, CBC with WBC 22.7, hemoglobin 11.9, MCV 79.5, platelet 344 with left shift, BMP with BUN/creatinine 20/1.54, GFR 36, glucose 148, magnesium 1.8, NT proBNPII 2130, urinalysis unremarkable, rapid SARS COVID/influenza/RSV PCR negative, CT chest patchy foci of airspace consolidation bilaterally, predominantly in the posterior left lung base compatible with pneumonia., no pleural effusionsm mild reactive mediastinal adenopathy. In the ED patient administered DuoNeb therapy and Solu-Medrol 125 mg IV x 1. [facility] Medical History Smoker Fall Hypoglycemia Hypoglycemia CKD (chronic kidney disease) stage 3, GFR 30-59 ml/min Former smoker Sleep apnea COPD (chronic obstructive pulmonary disease) Tobacco abuse Right knee pain Noncompliance w/medication treatment due to intermit use of medication CVA (cerebral vascular accident) Vertigo Constipation Flu vaccine need Noncompliance Hypertension Right hip pain Acute infarct right urban radiata [place] Type 2 diabetes mellitus Hypothyroidism Vision problems Thyroid disease High blood pressure Hearing problem Diabetes Carpal tunnel syndrome Breast cancer Asthma Arthritis Home Medications ?Medication ?Instructions ?Recorded ?Last Taken ?Type amlodipine 10 mg tablet 1 tab PO DAILY blood pressure 04/29/22 Unknown History carvedilol 12.5 mg tablet 1 tab PO DAILY blood pressure 04/29/22 Unknown History cholecalciferol (vitamin D3) 50 1 tab PO DAILY supplement 04/29/22 Unknown History mcg (2,000 unit) tablet citalopram 10 mg tablet 1 tab PO DAILY depression 04/29/22 Unknown History clopidogrel 75 mg tablet 1 tab PO DAILY antiplatelet 04/29/22 Unknown History anastrozole 1 mg tablet 1 mg PO DAILY 06/17/24 Unknown History bisacodyl 10 mg rectal suppository 10 mg [place] DAILY PRN constipation 06/17/24 Unknown History calcium carbonate (Calcium 500) 500 mg PO DAILY 06/17/24 Unknown History lisinopril 30 mg tablet 30 mg PO DAILY 06/17/24 Unknown History magnesium hydroxide 400 mg/5 mL 30 ml PO DAILY PRN constipation 06/17/24 Unknown History oral suspension (Milk of Magnesia) ondansetron HCl 4 mg tablet 4 mg PO Q6H PRN nausea and vomiting 06/17/24 Unknown History peg 3350-electrolytes 236 240 ml PO Q10M #4,000 mL 12/30/24 Unknown Rx gram-22.74 gram-6.74 gram-5.86 gram solution (Golytely) acetaminophen 500 mg capsule 1,000 mg PO Q8H PRN pain 03/22/25 Unknown History calcium carbonate (Calcium 500) 500 mg PO Q4H PRN PRN indigestion 03/22/25 Unknown History dextrose 40 % oral gel (Glucose 15 g PO Q15M PRN hypoglycemia 03/22/25 Unknown History Gel) doxazosin 1 mg tablet 1 mg PO DAILY 03/22/25 Unknown History glucagon 1 mg/0.2 mL subcutaneous 1 mg subcut PRN 03/22/25 Unknown History auto-injector insulin glargine 100 unit/mL (3 10 unit subcut QHS 03/22/25 Unknown History mL) subcutaneous pen (Basaglar KwikPen U-100 Insulin) levothyroxine 88 mcg tablet 88 mcg PO DAILY 03/22/25 Unknown History mineral oil (Fleet Mineral Oil 118 ml [place] DAILY PRN constipation 03/22/25 Unknown History enema) Allergy/AdvReac Type Severity Reaction Status Date / Time aspirin Allergy Unknown Nausea Verified 07/29/25 14:33 albuterol AdvReac I GET VERY Verified 07/29/25 14:33 SHAKEY/HYPERVENTILATING Penicillins AdvReac Nausea/Vom/ Verified 07/29/25 14:33 Diarrhea Family History (Updated 08/07/25 @ 04:[address] Kellie Beatty MD) Father Cancer bone cancer Brother Heart disease Mother Heart disease Surgical History History of section H/O mastectomy History of appendectomy Social History (Updated 08/07/25 @ 04:[address] Kellie Beatty MD) housing: senior care Smoking Status: Former smoker Tobacco: How many years used: 50 alcohol intake: never substance use type: marijuana and other details: smokes 4 joints a day ROS ROS Narrative Admission Review of Systems: CONSTITUTIONAL: No weight loss, fever, chills, + weakness or fatigue. HEENT: Eyes: No visual loss, blurred vision, double vision or yellow sclerae. Ears, Nose, Throat: No hearing loss, sneezing, congestion, runny nose or sore throat. SKIN: No rash or itching, lesions, wounds except + occasional stage ecchymoses, abrasion. CARDIOVASCULAR: No chest pain, chest pressure or chest discomfort, palpitations, edema, orthopnea, syncopal events. RESPIRATORY: + Dyspnea, wheezing, cough with occasional productive sputum. No hemoptysis. GASTROINTESTINAL: No anorexia, nausea, vomiting or diarrhea, abdominal pain, melena, BRBPR. GENITOURINARY: No dysuria, frequency, urgency or retention. NEUROLOGICAL: Hx CVA prior with resolved prior L sided deficits. No headache, dizziness, syncope, paralysis, ataxia, numbness or tingling in the extremities, focal weakness, change in bowel or bladder control, seizure. MUSCULOSKELETAL: + muscle, back pain, joint pain or stiffness. HEMATOLOGIC: + Chronic anemia, easy bleeding/bruising. LYMPHATICS: No enlarged nodes. No history of splenectomy. PSYCHIATRIC: + History of anxiety and depression. ENDOCRINOLOGIC: No reports of sweating, cold or heat intolerance. No polyuria or polydipsia. ALLERGIES: + History of asthma. Vital Signs Vital Signs Vital Signs: 08/07/25 01:56 EDT 08/07/25 01:01 EST 08/07/25 01:05 EST Temperature 98.1 F Temperature Source Oral Pulse Rate 91 Respiratory Rate 24 H Respiratory Effort Normal Respiratory Depth Normal Respiratory Pattern Normal Blood Pressure 154/82 H Blood Pressure Mean 106 Pulse Ox 89 92 Oxygen Delivery Method Room Air Room Air Nasal Cannula Oxygen Flow Rate (L/min) 1 08/07/25 01:20 EST 08/07/25 01:55 EST 08/07/25 01:59 EST Temperature 97.9 F Temperature Source Oral Pulse Rate 91 92 89 Respiratory Rate 22 H 16 16 Respiratory Effort Respiratory Depth Respiratory Pattern Tachypnea Blood Pressure 168/82 H 169/86 H Blood Pressure Mean 110 113 Pulse Ox 90 93 Oxygen Delivery Method Nasal Cannula Nasal Cannula Oxygen Flow Rate (L/min) 1 1 08/07/25 03:00 Temperature 97.9 F Temperature Source Oral Pulse Rate 90 Respiratory Rate 17 Respiratory Effort Respiratory Depth Respiratory Pattern Blood Pressure 169/87 H Blood Pressure Mean 114 Pulse Ox 91 Oxygen Delivery Method Nasal Cannula Oxygen Flow Rate (L/min) 1 Weight Weight: 150 lb 5.684 oz Body Mass Index (BMI) 29.3 Physical Exam Narrative Physical Examination: General: Awake, alert, oriented x 3 and cooperative, seated upright in the ED bed, fatigued, hoarse voice reporting that she has had significant coughing, fatigue, malaise. Skin: Normal color, normal turgor, no icterus, no cyanosis except occasional stage ecchymoses. HEENT: AT/NC, EOMI, PERRLA, mildly dry MM, mildly erythematous irritated posterior oropharynx, no carotid bruits or JVD noted. Lungs: Diminished, greater bases, mildly increased respiratory rate but no distress, end expiratory wheezing, no marked rales or rhonchi. Heart: Regular rate and rhythm; no gallop, rub audible. Abdomen: Soft, obese, NTTP, ND, normal BS, no appreciated HSM. Extremities: No cyanosis, no clubbing, no significant distal edema. Neurological: Patient awake, alert, oriented as noted, cognitive function intact; pupils equally reactive to light and accommodation, cranial nerves grossly normal, moving all 4 extremities, strength moderately to severely globally decreased. Psychiatric: Affect appears flat, fatigued, ill-appearing, no acute evidence of depressive or anxiety feelings but does have underlying history. Results Lab / Micro Data 08/07/25 01:02 EST 08/07/25 01:02 EST Labs: Laboratory Results - last 24 hr 08/07/25 01:02 EST: WBC 22.7 H, RBC 4.77, Hgb 11.9 L, Hct 37.9, MCV 79.5 L, MCH 24.9 L, MCHC 31.4 L, RDW Std Deviation 40.6, RDW Coeff of Chad 14.0, Plt Count 344, MPV 10.3, Immature Gran % (Auto) 0.700, Neut % (Auto) 87.9 H, Lymph % (Auto) 6.1 L, [place] % (Auto) 4.2, Eos % (Auto) 0.7, Baso % (Auto) 0.4, Absolute Neuts (auto) 19.9 H, Absolute Lymphs (auto) 1.39, Nucleated RBC % 0, Sodium 141, Potassium 3.7, Chloride 105, Carbon Dioxide 24.0, Anion Gap 12, BUN 20 H, Creatinine 1.54 H, Estim Creat Clear Calc 28.87 L, Est GFR (MDRD) Non-Af 36 L, BUN/Creatinine Ratio 13.2, Glucose 148 H, Calcium 9.6, Magnesium 1.8, NT pro BNP II 2130 H, Procalcitonin 0.07 08/07/25 01:40 EST: Lactic Acid < 1.0 08/07/25 01:55 EST: Urine Color Yellow, Urine Clarity Clear, Urine pH 6.0, Ur Specific [place] 1.015, Urine Protein 100 H, Urine Glucose (UA) Normal, Urine Ketones Negative, Urine Occult Blood 25 H, Urine Nitrite Negative, Urine Bilirubin Negative, Urine Urobilinogen Normal, Ur Leukocyte Esterase Negative, Urine RBC 0-5 SEEN, Urine WBC 0-5 SEEN, Ur Squamous Epith Cells 0-5 SEEN, Ur Renal Epithelial Cell 0-5 SEEN, Amorphous Sediment 1+, Urine Bacteria RARE, Hyaline Casts 0-5 SEEN, Fine Granular Casts 0-5 SEEN, Urine Mucus RARE Micro: Microbiology 08/07/25 01:15 EST Mucosa - Nose SARS-CoV-2, Influenza & RSV (PCR) - Final Imaging Radiology Impression Chest X-Ray 08/07/25 01:39 EST IMPRESSION: No evidence of acute cardiopulmonary disease. Reading Location: [facility] Chest CT 08/07/25 02:04 IMPRESSION: Patchy foci of airspace consolidation bilaterally, predominantly in the posterior left lung base compatible with pneumonia. No pleural effusions. Mild reactive mediastinal adenopathy. Reading Location: [facility] Assessment & Plan Assessment/Plan (1) Bilateral pneumonia: PLAN: Plan The patient is a 70 y/o F w/ PMHx: Hx CVA, SYLVIE not using PAP therapy, Obesity, Chronic microcytic anemia, CKD stage III unclear subtype per GFR trending, Diabetes mellitus type II, Anxiety and Depression, Hx Breast CA unclear type, HTN, HLD, Hypothyroidism, Former tobacco use, COPD/Asthma who presents to the [facility] ED on 08/07/2025 with history of residing in a senior care not typically on oxygen at baseline with recent increase of shortness of breath with notable fatigue, malaise, productive cough, wheezing with reported pulse oximeter at the skilled facility of 83% with no recent fever, chills and no recent ill contacts but given hypoxia prompted ED evaluation to be cautious. #1. Acute Hypoxia secondary to BL Community Acquired Pneumonia and Acute on Chronic COPD/Asthma exacerbation: Will admit to [facility], maintain on oxygen with wean as tolerated to room air, continue ATC duonebs, PRN albuterol, IV methylprednisolone, maintain on IV Rocephin and Azithromycin, HOB, IS parameters w/ pending sputum cultures and urine antigens. Bld cx x 1 obtained in the ED. #2. History CVA: Previous left-sided deficits, patient notes these have resolved, Will continue patient home Plavix, hypertensive regimen, diabetic regimen with adjustments as noted, per current list does not appear to be on statin therapy but clarifying to be certain. #3. Diabetes mellitus type II: Hold oral home regimen, continue home insulin regimen, ADA diet, accu checks w/ ISS. #4. Hypertension: Continue home regimen including lisinopril, Coreg, amlodipine with hold parameters as needed, PRN hydralazine. #5. History of breast cancer: Unclear type, status postmastectomy, considered in remission, will continue patient on anastrozole regimen, encourage follow-up with oncology as previously arranged. #6. Chronic Kidney Disease Stage III, unclear subtype or GFR trending: Admission BUN/Cr 20/1.54, GFR 30, baseline renal function primarily 1.3-1.6, repeat BMP in AM. #7. Chronic microcytic anemia: Hemoglobin 1.9, MCV 79.5, baseline hemoglobin 10-11, stable, continue to trend. #8. Anxiety and depression: Will continue patient home citalopram regimen, encourage continued follow-up outpatient as previously arranged. #9. Hypothyroidism: Will continue patient on levothyroxine regimen. #10. Obesity: Weight loss and lifestyle changes encouraged. #11. Former tobacco use: Encourage continued tobacco cessation. #12. SYLVIE: Denies using PAP therapy. #13. DVT prophylaxis: Lovenox. #14. CODE status: Patient WILFRIDO is her daughter who is present and living will is currently in place. Discussed CODE status at length including difference between FULL code, DNR-CCA and DNR-CC status. Following discussions about the differences in these status, requested DNR-CCA with allowance of short term intubation following examples. Advanced Care Planning Face to Face Time: 16 minutes. Charges/Coding Visit Charges Inpatient E&M: 13651 Init Hosp L3 Procedures Hospitalists Procedures: 65982 Advncd Care Plan 30 Min
[2025-08-07] MEDS: 0.9% Normal Saline (1000mL) 1,000 ML 100 ML IV (05:16)
[2025-08-07] MEDS: Azithromycin 500 MG in 0.9% Normal Saline (250mL Bag) 250 ML 250 MG IV ×2 (05:16→20:56)
[2025-08-07 07:13] LABS: Hematocrit 35.9 % (37-47); Hemoglobin 11.1 g/dL (12.0-15.0); Mean Corp Hgb Conc 30.9 g/dL (32-36); Mean Corpuscular Volume 80.3 fL (81-99); Mean Platelet Vol. 10.6 fl (6.2-12.0); NRBC Flagged by Analyzer 0 % (0-5); POSITIVE DIFFERENTIAL YES; POSITIVE MORPHOLOGY YES; Platelet Count 325 K/mm3 (150-450); RBC Distribution Width CV 13.9 % (11.6-14.6); RBC Distribution Width SD 40.8 fl (35.1-43.9); Red Blood Count 4.47 M/mm3 (4.2-5.4); White Blood Count 25.5 K/mm3 (4.4-11.0)
[2025-08-07 07:21] LABS: Differential Indicated SCAN CRITERIA MET
[2025-08-07 07:35] LABS: AST(SGOT) 15 U/L (<=31); Alanine Aminotransfer ALT/SGPT 7 U/L (<=34); Albumin, Serum 3.6 g/dL (3.4-4.8); Alkaline Phosphatase 175 U/L (35-104); Anion Gap 11 (5-15); BUN 20 mg/dL (4-19); BUN/Creat Ratio 13.4 RATIO (10-20); Calcium,Total 9.1 mg/dL (7.6-11.0); Carbon Dioxide 23.1 mmol/L (21.0-32.0); Chloride 107 mmol/L (98-108); Estimated Creatinine Clearance 28.59 ml/min (50-250); Globulin 2.8 g/dL (2.2-4.2); Glucose 178 mg/dL (70-99); Potassium 3.8 mmol/L (3.3-5.1)
--- NOTE | 2025-08-07 07:42 | CPS ---
Nasal swab ordered at 04:44, night time babysitter did not notify me if it was collected or not and Nursing was also unaware, so I swabbed pt. at 07:42
--- NOTE | 2025-08-07 08:36 | PCM.PN.HOSP ---
Subjective Subjective Doing well, currently having a breathing treatment but states that she is breathing little bit better Objective Data Objective Data Vital Signs: Vital Signs Temp Pulse Resp BP Pulse Ox O2 Del Method O2 Flow Rate 97.1 F L 91 18 135/68 H 96 Nasal Cannula 2 08/07/25 08:18 08/07/25 08:18 08/07/25 08:18 08/07/25 08:18 08/07/25 08:18 08/07/25 08:18 08/07/25 08:18 Oxygen Flow Rate (L/min) 2 Oxygen Delivery Method Nasal Cannula Weight: 135 lb 12.876 oz Body Mass Index (BMI) 26.6 Intake & Output: Intake and Output for Last 24 Hours 08/06/25 08/07/25 08/08/25 03:59 02:59 03:59 Intake Total 400 / 400 Balance 400 / 400 Lab / Micro Data 08/07/25 06:26 08/07/25 06:26 Labs: Laboratory Results - last 24 hr 08/07/25 01:02 EST: WBC 22.7 H, RBC 4.77, Hgb 11.9 L, Hct 37.9, MCV 79.5 L, MCH 24.9 L, MCHC 31.4 L, RDW Std Deviation 40.6, RDW Coeff of Chad 14.0, Plt Count 344, MPV 10.3, Immature Gran % (Auto) 0.700, Neut % (Auto) 87.9 H, Lymph % (Auto) 6.1 L, [place] % (Auto) 4.2, Eos % (Auto) 0.7, Baso % (Auto) 0.4, Absolute Neuts (auto) 19.9 H, Absolute Lymphs (auto) 1.39, Nucleated RBC % 0, Sodium 141, Potassium 3.7, Chloride 105, Carbon Dioxide 24.0, Anion Gap 12, BUN 20 H, Creatinine 1.54 H, Estim Creat Clear Calc 28.87 L, Est GFR (MDRD) Non-Af 36 L, BUN/Creatinine Ratio 13.2, Glucose 148 H, Calcium 9.6, Magnesium 1.8, NT pro BNP II 2130 H, Procalcitonin 0.07 08/07/25 01:40 EST: Lactic Acid < 1.0 08/07/25 01:55 EST: Urine Color Yellow, Urine Clarity Clear, Urine pH 6.0, Ur Specific [place] 1.015, Urine Protein 100 H, Urine Glucose (UA) Normal, Urine Ketones Negative, Urine Occult Blood 25 H, Urine Nitrite Negative, Urine Bilirubin Negative, Urine Urobilinogen Normal, Ur Leukocyte Esterase Negative, Urine RBC 0-5 SEEN, Urine WBC 0-5 SEEN, Ur Squamous Epith Cells 0-5 SEEN, Ur Renal Epithelial Cell 0-5 SEEN, Amorphous Sediment 1+, Urine Bacteria RARE, Hyaline Casts 0-5 SEEN, Fine Granular Casts 0-5 SEEN, Urine Mucus RARE 08/07/25 06:18: POC Glucose 168 H 08/07/25 06:26: WBC 25.5 H, RBC 4.47, Hgb 11.1 L, Hct 35.9 L, MCV 80.3 L, MCH 24.8 L, MCHC 30.9 L, RDW Std Deviation 40.8, RDW Coeff of Chad 13.9, Plt Count 325, MPV 10.6, Immature Gran % (Auto) 0.800, Neut % (Auto) 79.1 H, Lymph % (Auto) 3.0 L, [place] % (Auto) 1.7, Eos % (Auto) 15.2 H, Baso % (Auto) 0.2, Absolute Neuts (auto) 20.2 H, Absolute Lymphs (auto) 0.76 L, Nucleated RBC % 0, Sodium 141, Potassium 3.8, Chloride 107, Carbon Dioxide 23.1, Anion Gap 11, BUN 20 H, Creatinine 1.48 H, Estim Creat Clear Calc 28.59 L, Est GFR (MDRD) Non-Af 38 L, BUN/Creatinine Ratio 13.4, Glucose 178 H, Calcium 9.1, Total Bilirubin 0.25, AST 15, ALT 7, Alkaline Phosphatase 175 H, Total Protein 6.3, Albumin 3.6, Globulin 2.8, Albumin/Globulin Ratio 1.3 Micro: Microbiology 08/07/25 01:53 EST Urine Catheter - Catheter Legionella Antigen - Final 08/07/25 01:53 EST Urine Catheter - Catheter Streptococcus pneumoniae Antigen (M - Final 08/07/25 01:15 EST Mucosa - Nose SARS-CoV-2, Influenza & RSV (PCR) - Final Radiography Diagnostic Testing: Radiology Impression Chest X-Ray 08/07/25 01:39 EST IMPRESSION: No evidence of acute cardiopulmonary disease. Reading Location: [facility] Chest CT 08/07/25 02:04 IMPRESSION: Patchy foci of airspace consolidation bilaterally, predominantly in the posterior left lung base compatible with pneumonia. No pleural effusions. Mild reactive mediastinal adenopathy. Reading Location: [facility] Physical Exam Narrative General: Alert, Oriented x3, Cooperative, No apparent distress HEENT: Atraumatic, PERRLA, EOMI, Normocephalic Oral: Moist Mucosa Neck: Supple, No JVD Lungs: Diminished, Normal air movement, No rhonchi, wheeze, No rales Cardiovascular: Regular rate, Regular Rhythm, Normal S1, Normal S2, No murmurs Abdomen: Soft, Non Tender, Non-Distended, No Hepato-splenomegaly Extremities: No edema, Capillary Refill Less than 3 Seconds Skin: No rashes, No breakdown Musculoskeletal: No Tenderness to Palpation of Joints or Extremities Neurological: No focal neurological deficits, moves all extremities Psych/Mental Status: Normal Affect, Appropriate Assessment & Plan Assessment/Plan (1) Bilateral pneumonia: PLAN: Plan 1. Acute hypoxic respiratory insufficiency secondary to bilateral community-acquired pneumonia in setting of an acute COPD exacerbation ? Continue with antibiotics ? Continue with steroids ? Continue with breathing treatments ? Sputum cultures are pending, urine antigens were negative ? Respiratory panel is pending 2. Essential HTN ? Blood pressures are stabilized?continue with her home blood pressure medications ? Continue with her home antiplatelet medications 3. DM2 with CKD 3 ? Continue with insulin ? Accu-Cheks ? Will monitor and make adjustments as necessary ? Renal function is at baseline 4. History of breast cancer ? Currently on anastrozole which we will continue 5. Anxiety/depression ? Stable ? Continue with her home medications 6. Hypothyroidism ? Stable ? Continue with Synthroid DVT: Lovenox Charges/Coding Visit Charges Inpatient E&M: 80568 Subs Hosp L2
[2025-08-07 08:37] LABS: Immature Granulocytes Count 0.140 X10^3/uL (0.0-0.0)
[2025-08-07] MEDS: 0.9% Saline Lock 10 ML Syringe IV (14:42)
[2025-08-07] MEDS: guaiFENesin 10 ML UDC (200MG/10ML) 20 ML PO (18:08)
[2025-08-07] MEDS: Insulin Glargine-YFGN 100 UNIT/ML Pen 10 UNIT SC (20:50)
[2025-08-08] VITALS (9 sets, daily range): BP systolic 120–141; BP diastolic 64–81; PULSE 74–81; RESP 16–20; TEMP 36.5–37; O2SAT 82–96; BMI 27.0
[2025-08-08 07:04] LABS: Hematocrit 32.1 % (37-47); Hemoglobin 10.0 g/dL (12.0-15.0); Immature Granulocytes Count 0.140 X10^3/uL (0.0-0.0); Mean Corp Hgb Conc 31.2 g/dL (32-36); Mean Corpuscular Volume 80.5 fL (81-99); Mean Platelet Vol. 10.8 fl (6.2-12.0); NRBC Flagged by Analyzer 0 % (0-5); Platelet Count 310 K/mm3 (150-450); RBC Distribution Width CV 14.4 % (11.6-14.6); RBC Distribution Width SD 42.1 fl (35.1-43.9); Red Blood Count 3.99 M/mm3 (4.2-5.4); White Blood Count 20.0 K/mm3 (4.4-11.0)
[2025-08-08 07:35] LABS: Anion Gap 10 (5-15); BUN 33 mg/dL (4-19); BUN/Creat Ratio 17.2 RATIO (10-20); Calcium,Total 8.8 mg/dL (7.6-11.0); Carbon Dioxide 21.8 mmol/L (21.0-32.0); Chloride 107 mmol/L (98-108); Estimated Creatinine Clearance 22.52 ml/min (50-250); Glucose 266 mg/dL (70-99); Potassium 3.9 mmol/L (3.3-5.1)
--- NOTE | 2025-08-08 08:30 | PCM.PN.HOSP ---
Subjective Subjective Still with some wheezing and scattered rhonchi. No issues overnight Objective Data Objective Data Vital Signs: Vital Signs Temp Pulse Resp BP Pulse Ox O2 Del Method O2 Flow Rate 98.6 F 78 16 133/72 H 95 Nasal Cannula 2 08/08/25 04:42 08/08/25 07:00 08/08/25 07:00 08/08/25 04:42 08/08/25 07:00 08/08/25 07:00 08/08/25 07:00 Oxygen Flow Rate (L/min) 2 Oxygen Delivery Method Nasal Cannula Weight: 137 lb 9.095 oz Body Mass Index (BMI) 27.0 Intake & Output: Intake and Output for Last 24 Hours 08/07/25 08/08/25 08/09/25 02:59 03:59 03:59 Intake Total 2800 / 2800 Balance 2800 / 2800 Lab / Micro Data 08/08/25 06:38 08/08/25 06:38 Labs: Laboratory Results - last 24 hr 08/07/25 06:26: Immature Gran % (Auto) 0.600, Neut % (Auto) 94.3 H, Lymph % (Auto) 3.2 L, Eos % (Auto) 0.0, Absolute Neuts (auto) 23.3 H, Absolute Lymphs (auto) 0.79 L 08/07/25 11:10: POC Glucose 272 H 08/07/25 16:21: POC Glucose 312 H 08/07/25 20:48: POC Glucose 301 H 08/08/25 04:45: POC Glucose 245 H 08/08/25 06:38: WBC 20.0 H, RBC 3.99 L, Hgb 10.0 L, Hct 32.1 L, MCV 80.5 L, MCH 25.1 L, MCHC 31.2 L, RDW Std Deviation 42.1, RDW Coeff of Chad 14.4, Plt Count 310, MPV 10.8, Immature Gran % (Auto) 0.700, Neut % (Auto) 91.1 H, Lymph % (Auto) 6.5 L, [place] % (Auto) 1.6, Eos % (Auto) 0.0, Baso % (Auto) 0.1, Absolute Neuts (auto) 18.2 H, Absolute Lymphs (auto) 1.29, Nucleated RBC % 0, Sodium 139, Potassium 3.9, Chloride 107, Carbon Dioxide 21.8, Anion Gap 10, BUN 33 H, Creatinine 1.89 H, Estim Creat Clear Calc 22.52 L, Est GFR (MDRD) Non-Af 28 L, BUN/Creatinine Ratio 17.2, Glucose 266 H, Calcium 8.8 Micro: Microbiology 08/07/25 07:42 Mucosa - Nasopharyngeal Respiratory Panel (PCR) - Final 08/07/25 01:53 EST Urine Catheter - Catheter Legionella Antigen - Final 08/07/25 01:53 EST Urine Catheter - Catheter Streptococcus pneumoniae Antigen (M - Final 08/07/25 01:15 EST Mucosa - Nose SARS-CoV-2, Influenza & RSV (PCR) - Final Physical Exam Narrative General: Alert, Oriented x3, Cooperative, No apparent distress HEENT: Atraumatic, PERRLA, EOMI, Normocephalic Oral: Moist Mucosa Neck: Supple, No JVD Lungs: Diminished, Normal air movement, scattered rhonchi, wheeze, No rales Cardiovascular: Regular rate, Regular Rhythm, Normal S1, Normal S2, No murmurs Abdomen: Soft, Non Tender, Non-Distended, No Hepato-splenomegaly Extremities: No edema, Capillary Refill Less than 3 Seconds Skin: No rashes, No breakdown Musculoskeletal: No Tenderness to Palpation of Joints or Extremities Neurological: No focal neurological deficits, moves all extremities Psych/Mental Status: Normal Affect, Appropriate Assessment & Plan Assessment/Plan (1) Bilateral pneumonia: PLAN: Plan 1. Acute hypoxic respiratory insufficiency secondary to bilateral community-acquired pneumonia in setting of an acute COPD exacerbation ? Continue with antibiotics ? Continue with steroids ? Continue with breathing treatments ? Sputum cultures are pending, urine antigens were negative ? Respiratory panel is pending 2. Essential HTN ? Blood pressures are stabilized?continue with her home blood pressure medications ? Continue with her home antiplatelet medications 3. DM2 with CKD 3 ? Continue with insulin ? Accu-Cheks ? Will monitor and make adjustments as necessary ? Renal function is at baseline 4. History of breast cancer ? Currently on anastrozole which we will continue 5. Anxiety/depression ? Stable ? Continue with her home medications 6. Hypothyroidism ? Stable ? Continue with Synthroid DVT: Lovenox Charges/Coding Visit Charges Inpatient E&M: 85623 Subs Hosp L2
[2025-08-08] MEDS: guaiFENesin 10 ML UDC (200MG/10ML) 20 ML PO ×3 (09:23→20:02)
--- NOTE | 2025-08-08 11:03 | CASEMGMT ---
Social Work- SW met with pt to discuss discharge planning. SW introduced self and role; pt agreeable to meeting. Pt confirms that she is from [facility] and reports that she plans to return. DCA notified. SW confirmed that pt does not have directives and reports that she does not want to complete at this time. SW remains available to follow. Plan: [facility]; return SERGEY Kurtz
[2025-08-08] MEDS: 0.9% Saline Lock 10 ML Syringe IV (13:25)
--- NOTE | 2025-08-08 14:31 | CASEMGMT ---
[facility]charge [facility]. Isabella Alarcon DC Planning Asst.
[2025-08-08] MEDS: Insulin Glargine-YFGN 100 UNIT/ML Pen 15 UNIT SC (22:21)
[2025-08-08] MEDS: MELATONIN 3 MG TABLET PO (22:29)
[2025-08-08] MEDS: Azithromycin 500 MG in 0.9% Normal Saline (250mL Bag) 250 ML 250 MG IV (23:01)
[2025-08-09] VITALS (7 sets, daily range): BP systolic 118–153; BP diastolic 61–103; PULSE 69–89; RESP 16–20; TEMP 36.4–36.7; O2SAT 88–95; BMI 27.2
[2025-08-09 07:24] LABS: Hematocrit 35.8 % (37-47); Hemoglobin 10.9 g/dL (12.0-15.0); Immature Granulocytes Count 0.260 X10^3/uL (0.0-0.0); Mean Corp Hgb Conc 30.4 g/dL (32-36); Mean Corpuscular Volume 81.2 fL (81-99); Mean Platelet Vol. 10.9 fl (6.2-12.0); NRBC Flagged by Analyzer 0 % (0-5); Platelet Count 411 K/mm3 (150-450); RBC Distribution Width CV 14.4 % (11.6-14.6); RBC Distribution Width SD 42.3 fl (35.1-43.9); Red Blood Count 4.41 M/mm3 (4.2-5.4); White Blood Count 19.6 K/mm3 (4.4-11.0)
[2025-08-09] MEDS: guaiFENesin 10 ML UDC (200MG/10ML) 20 ML PO (07:32)
[2025-08-09 08:18] LABS: Anion Gap 11 (5-15); BUN 45 mg/dL (4-19); BUN/Creat Ratio 21.4 RATIO (10-20); Calcium,Total 9.2 mg/dL (7.6-11.0); Carbon Dioxide 21.6 mmol/L (21.0-32.0); Chloride 105 mmol/L (98-108); Estimated Creatinine Clearance 20.27 ml/min (50-250); Glucose 238 mg/dL (70-99); Potassium 4.4 mmol/L (3.3-5.1)
--- NOTE | 2025-08-09 08:44 | PN.HOSP_ITS ---
Reason for Visit
--- NOTE | 2025-08-09 08:44 | PCM.PN.HOSP ---
Reason for Visit Chief Complaint: States that she feels about the same as when she came in Objective Data Objective Data Vital Signs: Vital Signs Temp Pulse Resp BP Pulse Ox O2 Del Method O2 Flow Rate 98.1 F 74 19 H 144/71 H 94 Nasal Cannula 2 08/09/25 08:13 08/09/25 08:13 08/09/25 08:13 08/09/25 08:13 08/09/25 08:13 08/09/25 08:14 08/09/25 08:14 Oxygen Flow Rate (L/min) 2 Oxygen Delivery Method Nasal Cannula Weight: 138 lb 14.259 oz Body Mass Index (BMI) 27.2 Intake & Output: Intake and Output for Last 24 Hours 08/08/25 08/09/25 08/10/25 03:59 03:59 03:59 Intake Total 2800 / 2800 500 / 500 100 / 100 Balance 2800 / 2800 500 / 500 100 / 100 Lab / Micro Data 08/09/25 06:45 08/09/25 06:45 Labs: Laboratory Results - last 24 hr 08/08/25 11:15: POC Glucose 256 H 08/08/25 16:02: POC Glucose 379 H 08/08/25 22:19: POC Glucose 302 H 08/09/25 06:11: POC Glucose 226 H 08/09/25 06:45: WBC 19.6 H, RBC 4.41, Hgb 10.9 L, Hct 35.8 L, MCV 81.2, MCH 24.7 L, MCHC 30.4 L, RDW Std Deviation 42.3, RDW Coeff of Chad 14.4, Plt Count 411, MPV 10.9, Immature Gran % (Auto) 1.300 H, Neut % (Auto) 90.2 H, Lymph % (Auto) 6.8 L, [place] % (Auto) 1.5, Eos % (Auto) 0.0, Baso % (Auto) 0.2, Absolute Neuts (auto) 17.6 H, Absolute Lymphs (auto) 1.33, Nucleated RBC % 0, Sodium 138, Potassium 4.4, Chloride 105, Carbon Dioxide 21.6, Anion Gap 11, BUN 45 H, Creatinine 2.11 H, Estim Creat Clear Calc 20.27 L, Est GFR (MDRD) Non-Af 25 L, BUN/Creatinine Ratio 21.4 H, Glucose 238 H, Calcium 9.2 Micro: Microbiology 08/07/25 07:42 Mucosa - Nasopharyngeal Respiratory Panel (PCR) - Final 08/07/25 01:53 EST Urine Catheter - Catheter Legionella Antigen - Final 08/07/25 01:53 EST Urine Catheter - Catheter Streptococcus pneumoniae Antigen (M - Final 08/07/25 01:15 EST Mucosa - Nose SARS-CoV-2, Influenza & RSV (PCR) - Final Physical Exam Narrative General: Alert, Oriented x3, Cooperative, No apparent distress HEENT: Atraumatic, PERRLA, EOMI, Normocephalic Oral: Moist Mucosa Neck: Supple, No JVD Lungs: Diminished, Normal air movement, scattered rhonchi, wheeze, No rales Cardiovascular: Regular rate, Regular Rhythm, Normal S1, Normal S2, No murmurs Abdomen: Soft, Non Tender, Non-Distended, No Hepato-splenomegaly Extremities: No edema, Capillary Refill Less than 3 Seconds Skin: No rashes, No breakdown Musculoskeletal: No Tenderness to Palpation of Joints or Extremities Neurological: No focal neurological deficits, moves all extremities Psych/Mental Status: Normal Affect, Appropriate Assessment & Plan Assessment/Plan (1) Bilateral pneumonia: PLAN: Plan 1. Acute hypoxic respiratory insufficiency secondary to bilateral community-acquired pneumonia in setting of an acute COPD exacerbation ? Continue with antibiotics ? Continue with steroids ? Continue with breathing treatments ? Sputum cultures are pending, urine antigens were negative ? Respiratory panel is unremarkable ? Will obtain an ambulatory pulse ox today 2. Essential HTN ? Blood pressures are stabilized ? Continue with her home blood pressure medications ? Continue with her home antiplatelet medications 3. DM2 with CKD 3 ? Continue with insulin ? Accu-Cheks ? Will monitor and make adjustments as necessary ? Renal function is at baseline 4. History of breast cancer ? Currently on anastrozole which we will continue 5. Anxiety/depression ? Stable ? Continue with her home medications 6. Hypothyroidism ? Stable ? Continue with Synthroid DVT: Lovenox Charges/Coding Visit Charges Inpatient E&M: 51521 Subs Hosp L2
--- NOTE | 2025-08-09 13:37 | PCM.TXEXTCAR ---
Diet Diet Order/Speech Therapy: INPATIENT Hospital Diet / Speech Therapy Order(s) 08/07/25 04:44 Diet: Consistent Carb - Calorie Controlled Food consistency:: Regular Liquid Consistency:: Regular/Thin Dietary Modifications:: Cardiac / Heart Healthy Type of Dietary Supplement:: Glucerna Shake Diet Comments: 120mL glucerna shake with meals How many daily calories?: 1500 calorie Routine Orders/Code Status Routine Lab Work: CBC and BMP Code Status: Full Code DC O2, CPAP, BIPAP needs Home O2 Discharge instructions: No Therapies Physical Therapy: Eval and Treat Occupational Therapy: Eval and Treat Problem/Diagnosis (1) Bilateral pneumonia: Status: Acute Code(s): J18.9 - Pneumonia, unspecified organism Plan 1. Acute hypoxic respiratory insufficiency secondary to bilateral community-acquired pneumonia in setting of an acute COPD exacerbation ? Continue with antibiotics ? Continue with steroids ? Continue with breathing treatments ? Sputum cultures are pending, urine antigens were negative ? Respiratory panel is unremarkable ? Will obtain an ambulatory pulse ox today 2. Essential HTN ? Blood pressures are stabilized ? Continue with her home blood pressure medications ? Continue with her home antiplatelet medications 3. DM2 with CKD 3 ? Continue with insulin ? Accu-Cheks ? Will monitor and make adjustments as necessary ? Renal function is at baseline 4. History of breast cancer ? Currently on anastrozole which we will continue 5. Anxiety/depression ? Stable ? Continue with her home medications 6. Hypothyroidism ? Stable ? Continue with Synthroid DVT: Lovenox Allergies/Procedures Done in Hospital Allergies aspirin Allergy (Unknown, Verified 07/29/25 14:33) Nausea albuterol Adverse Reaction (Verified 07/29/25 14:33) I GET VERY SHAKEY/HYPERVENTILATING Penicillins Adverse Reaction (Verified 07/29/25 14:33) Nausea/Vom/Diarrhea Procedures: None Type of Care/Length of Stay Estimated LOS: Convalescent Care Less Than 30 days Type of Care Needed: Skilled Rehab Potential: Good Prognosis: Good Additional Orders/Day of Discharge Day of Discharge: 08/09/25 Discharge Plan Admission Admit Date/Time: 08/07/25 03:34 Attending Provider: Moris Heard Primary Care Provider: Allen Obrien Consulting Providers: Kellie Beatty Instructions Additional Instructions / Restrictions: Your creatinine is elevated to 2.11 today with a baseline of 1.6, you do not have an acute kidney injury yet. I recommend holding your lisinopril for a few days when you go back to the SNF. Discharge Orders/Prescriptions Prescriptions: New cefdinir 300 mg capsule 300 mg PO BID 4 Days Qty: 8 0RF prednisone 10 mg tablet 10 mg PO DAILY Qty: 32 0RF Rx Instructions: Take 4 tablets daily for 3 days then 3 tablets daily for 3 days then 2 tablets daily for 3 days then 1 tablet daily for 3 days then half tablet daily for 4 days Continued peg 3350-electrolytes [Golytely] 236-22.74-6.74 -5.86 gram recon soln 240 ml PO Q10M Qty: 4000 0RF Rx Instructions: as directed for split dose bowel prep carvedilol 12.5 mg tablet 1 tab PO DAILY citalopram 10 mg tablet 1 tab PO DAILY clopidogrel 75 mg tablet 1 tab PO DAILY amlodipine 10 mg tablet 1 tab PO DAILY cholecalciferol (vitamin D3) 50 mcg (2,000 unit) tablet 1 tab PO DAILY calcium carbonate [Calcium 500] 500 mg calcium (1,250 mg) tablet,chewable 500 mg PO DAILY anastrozole 1 mg tablet 1 mg PO DAILY bisacodyl 10 mg suppository 10 mg AR DAILY PRN (Reason: constipation) lisinopril 30 mg tablet 30 mg PO DAILY magnesium hydroxide [Milk of Magnesia] 400 mg/5 mL suspension 30 ml PO DAILY PRN (Reason: constipation) ondansetron HCl 4 mg tablet 4 mg PO Q6H PRN (Reason: nausea and vomiting) doxazosin 1 mg tablet 1 mg PO DAILY levothyroxine 88 mcg tablet 88 mcg PO DAILY insulin glargine [Basaglar KwikPen U-100 Insulin] 100 unit/mL (3 mL) insulin pen 10 unit subcut QHS mineral oil [Fleet Mineral Oil] Enema 118 ml AR DAILY PRN (Reason: constipation) Rx Instructions: discard any unused portion glucagon 1 mg/0.2 mL auto-injector 1 mg subcut PRN Patient Comments: 1 APPLICATION EVERY 15 MIN PRN dextrose [Glucose Gel] 40 % gel 15 g PO Q15M PRN (Reason: hypoglycemia) Rx Instructions: until symptoms of low blood sugar are controlled calcium carbonate [Calcium 500] 500 mg calcium (1,250 mg) tablet,chewable 500 mg PO Q4H PRN PRN (Reason: indigestion) acetaminophen 500 mg capsule 1,000 mg PO Q8H PRN (Reason: pain) Referrals / Follow Up: Allen Obrien MD [Primary Care Provider, Family Practice] Disposition Disposition (needs filled in before D/C Order can be placed): [facility]
[2025-08-09] MEDS: 0.9% Saline Lock 10 ML Syringe IV (13:52)
--- NOTE | 2025-08-09 14:04 | PHA.DC_ITS ---
Pharmacy [place] Med Reconciliation
--- NOTE | 2025-08-09 14:04 | PHA.DC.MR.R ---
Pharmacy [place] Med Reconciliation Pharmacy Service has performed discharge medication reconciliation for this patient. The patient's discharge medication list was reviewed for discrepancies and discrepancies were resolved. Medications at Discharge Home Medications amlodipine 10 mg tablet 1 tab PO DAILY blood pressure 04/29/22 carvedilol 12.5 mg tablet 1 tab PO DAILY blood pressure 04/29/22 cholecalciferol (vitamin D3) 50 mcg (2,000 unit) tablet 1 tab PO DAILY supplement 04/29/22 citalopram 10 mg tablet 1 tab PO DAILY depression 04/29/22 clopidogrel 75 mg tablet 1 tab PO DAILY antiplatelet 04/29/22 anastrozole 1 mg tablet 1 mg PO DAILY 06/17/24 bisacodyl 10 mg rectal suppository 10 mg DE DAILY PRN constipation 06/17/24 calcium carbonate (Calcium 500) 500 mg PO DAILY 06/17/24 lisinopril 30 mg tablet 30 mg PO DAILY 06/17/24 magnesium hydroxide 400 mg/5 mL oral suspension (Milk of Magnesia) 30 ml PO DAILY PRN constipation 06/17/24 ondansetron HCl 4 mg tablet 4 mg PO Q6H PRN nausea and vomiting 06/17/24 peg 3350-electrolytes 236 gram-22.74 gram-6.74 gram-5.86 gram solution (Golytely) 240 ml PO Q10M #4,000 mL 12/30/24 acetaminophen 500 mg capsule 1,000 mg PO Q8H PRN pain 03/22/25 calcium carbonate (Calcium 500) 500 mg PO Q4H PRN PRN indigestion 03/22/25 dextrose 40 % oral gel (Glucose Gel) 15 g PO Q15M PRN hypoglycemia 03/22/25 doxazosin 1 mg tablet 1 mg PO DAILY 03/22/25 glucagon 1 mg/0.2 mL subcutaneous auto-injector 1 mg subcut PRN 03/22/25 insulin glargine 100 unit/mL (3 mL) subcutaneous pen (Basaglar KwikPen U-100 Insulin) 10 unit subcut QHS 03/22/25 levothyroxine 88 mcg tablet 88 mcg PO DAILY 03/22/25 mineral oil (Fleet Mineral Oil enema) 118 ml DE DAILY PRN constipation 03/22/25 cefdinir 300 mg capsule 300 mg PO BID 4 days #8 caps 08/09/25 prednisone 10 mg tablet 10 mg PO DAILY #32 tabs 08/09/25
--- NOTE | 2025-08-09 14:42 | CASEMGMT ---
Discharge Planning Discharge orders, signed med list, and transport time sent via [facility] to [place] [facility]. Physicians will transport pt by wheelchair at 4p. Nursing, SW, and pt updated. VM left for pts son (Guilherme). Pts daughter (Lalitha) does not have a set up vm. Isabella Alarcon DC Planning Asst.
--- NOTE | 2025-08-09 15:49 | CASEMGMT ---
Social Work Physician updated and pt is ready for discharge today. SW met with pt and they are agreeable to discharge plan as stated above.? DCA and bedside nurse notified of discharge. DCA to complete all arrangements and notifications. Disposition:[facility], return to intermediate level of care SERGEY Kurtz
--- NOTE | 2025-08-09 18:23 | PCM.DC.SUM ---
Providers Date of Admission: 08/07/25 Primary Care Physician: Dr. Allen Obrien MD Reason For Visit: HYPOXIA, COPD/ASTHMA EXAC, PNA Diagnosis Discharge Diagnosis (1) Bilateral pneumonia: Status: Acute Code(s): J18.9 - Pneumonia, unspecified organism Medications at Discharge Home Medications amlodipine 10 mg tablet 1 tab PO DAILY blood pressure 04/29/22 carvedilol 12.5 mg tablet 1 tab PO DAILY blood pressure 04/29/22 cholecalciferol (vitamin D3) 50 mcg (2,000 unit) tablet 1 tab PO DAILY supplement 04/29/22 citalopram 10 mg tablet 1 tab PO DAILY depression 04/29/22 clopidogrel 75 mg tablet 1 tab PO DAILY antiplatelet 04/29/22 anastrozole 1 mg tablet 1 mg PO DAILY 06/17/24 bisacodyl 10 mg rectal suppository 10 mg AR DAILY PRN constipation 06/17/24 calcium carbonate (Calcium 500) 500 mg PO DAILY 06/17/24 lisinopril 30 mg tablet 30 mg PO DAILY 06/17/24 magnesium hydroxide 400 mg/5 mL oral suspension (Milk of Magnesia) 30 ml PO DAILY PRN constipation 06/17/24 ondansetron HCl 4 mg tablet 4 mg PO Q6H PRN nausea and vomiting 06/17/24 peg 3350-electrolytes 236 gram-22.74 gram-6.74 gram-5.86 gram solution (Golytely) 240 ml PO Q10M #4,000 mL 12/30/24 acetaminophen 500 mg capsule 1,000 mg PO Q8H PRN pain 03/22/25 calcium carbonate (Calcium 500) 500 mg PO Q4H PRN PRN indigestion 03/22/25 dextrose 40 % oral gel (Glucose Gel) 15 g PO Q15M PRN hypoglycemia 03/22/25 doxazosin 1 mg tablet 1 mg PO DAILY 03/22/25 glucagon 1 mg/0.2 mL subcutaneous auto-injector 1 mg subcut PRN 03/22/25 insulin glargine 100 unit/mL (3 mL) subcutaneous pen (Basaglar KwikPen U-100 Insulin) 10 unit subcut QHS 03/22/25 levothyroxine 88 mcg tablet 88 mcg PO DAILY 03/22/25 mineral oil (Fleet Mineral Oil enema) 118 ml AR DAILY PRN constipation 03/22/25 cefdinir 300 mg capsule 300 mg PO BID 4 days #8 caps 08/09/25 prednisone 10 mg tablet 10 mg PO DAILY #32 tabs 08/09/25 Hospital Course Operations None Procedures None Summary of Care Provided Minutes Spent on Discharge: 33 Hospital Course: Per HPI: The patient is a 70 y/o F w/ PMHx: Hx CVA, SYLVIE not using PAP therapy, Obesity, Chronic microcytic anemia, CKD stage III unclear subtype per GFR trending, Diabetes mellitus type II, Anxiety and Depression, Hx Breast CA unclear type, HTN, HLD, Hypothyroidism, Former tobacco use, COPD/Asthma who presents [facility] ED on 08/07/[facility]25 with history of residing in a chcf not typically on oxygen at baseline with recent increase of shortness of breath with notable fatigue, malaise, productive cough, wheezing with reported pulse oximeter at the skilled facility of 83% with no recent fever, chills and no recent ill contacts but given hypoxia prompted ED evaluation to be cautious. Workup in the ED included T98.1, heart rate 91, BP 154/82, respiratory rate 24, 89% on room air with improvement to 92% on 1 L nasal cannula with most recent repeat vitals heart rate 92, BP 168/82, respiratory rate 16, 90% on 1 L nasal cannula, CBC with WBC 22.7, hemoglobin 11.9, MCV 79.5, platelet 344 with left shift, BMP with BUN/creatinine 20/1.54, GFR 36, glucose 148, magnesium 1.8, NT proBNPII 2130, urinalysis unremarkable, rapid SARS COVID/influenza/RSV PCR negative, CT chest patchy foci of airspace consolidation bilaterally, predominantly in the posterior left lung base compatible with pneumonia., no pleural effusionsm mild reactive mediastinal adenopathy. In the ED patient administered DuoNeb therapy and Solu-Medrol 125 mg IV x 1. Hospital Course: 1. Acute hypoxic respiratory insufficiency secondary to bilateral community-acquired pneumonia in setting of an acute COPD exacerbation ? Continue with Cefdinir for 4 more days on discharge and she completed 3 days of azithromycin ? Continue with steroid taper on discharge ? Continue with breathing treatments ?Urine antigens were negative ? Respiratory panel is unremarkable ?Ambulatory pulse ox today showed a 2 L requirement with ambulation and room air at rest. I discussed with her the possibility of going back to the chcf and she expressed understanding of the risks and benefits of going back and would like to go today. We did discuss the fact that her kidney function was a little bit high though with her baseline being between 1.6 and 1.8 recently that she does not meet the criteria for an ERIC. I do recommend that we hold her lisinopril for a few more days and recheck as an outpatient. 2. Essential HTN ? Blood pressures are stabilized ? Continue with her home blood pressure medications ? Continue with her home antiplatelet medications 3. DM2 with CKD 3 ? Continue with insulin ? Accu-Cheks ? Will monitor and make adjustments as necessary 4. History of breast cancer ? Currently on anastrozole which we will continue 5. Anxiety/depression ? Stable ? Continue with her home medications 6. Hypothyroidism ? Stable ? Continue with Synthroid Weight / BMI Weight Weight: 138 lb 14.259 oz Body Mass Index (BMI) 27.2 ABG / Lab / Microbiology Data 08/09/25 06:45 08/09/25 06:45 Laboratory: Laboratory Results - last 24 hr 08/08/25 22:19: POC Glucose 302 H 08/09/25 06:11: POC Glucose 226 H 08/09/25 06:45: WBC 19.6 H, RBC 4.41, Hgb 10.9 L, Hct 35.8 L, MCV 81.2, MCH 24.7 L, MCHC 30.4 L, RDW Std Deviation 42.3, RDW Coeff of Chad 14.4, Plt Count 411, MPV 10.9, Immature Gran % (Auto) 1.300 H, Neut % (Auto) 90.2 H, Lymph % (Auto) 6.8 L, [place] % (Auto) 1.5, Eos % (Auto) 0.0, Baso % (Auto) 0.2, Absolute Neuts (auto) 17.6 H, Absolute Lymphs (auto) 1.33, Nucleated RBC % 0, Sodium 138, Potassium 4.4, Chloride 105, Carbon Dioxide 21.6, Anion Gap 11, BUN 45 H, Creatinine 2.11 H, Estim Creat Clear Calc 20.27 L, Est GFR (MDRD) Non-Af 25 L, BUN/Creatinine Ratio 21.4 H, Glucose 238 H, Calcium 9.2 08/09/25 10:59: POC Glucose 224 H Microbiology: Microbiology 08/07/25 01:40 EST Blood Culture (Wb) - Anticubital Left Blood Culture - Preliminary No growth in 48 hours. 08/07/25 07:42 Mucosa - Nasopharyngeal Respiratory Panel (PCR) - Final 08/07/25 01:53 EST Urine Catheter - Catheter Legionella Antigen - Final 08/07/25 01:53 EST Urine Catheter - Catheter Streptococcus pneumoniae Antigen (M - Final 08/07/25 01:15 EST Mucosa - Nose SARS-CoV-2, Influenza & RSV (PCR) - Final D/C Instructions DC O2, CPAP, BIPAP Needs Home O2 Discharge instructions: No Meaningful Use Info Meaningful Use Meaningful Use Diagnoses (Choose all that apply): None applicable Discharge Plan Admission Admit Date/Time: 08/07/25 03:34 Attending Provider: Moris Heard Primary Care Provider: Allen Obrien Consulting Providers: Kellie Beatty Instructions Additional Instructions / Restrictions: Your creatinine is elevated to 2.11 today with a baseline of 1.6, you do not have an acute kidney injury yet. I recommend holding your lisinopril for a few days when you go back to the SNF. Discharge Orders/Prescriptions Prescriptions: New cefdinir 300 mg capsule 300 mg PO BID 4 Days Qty: 8 0RF prednisone 10 mg tablet 10 mg PO DAILY Qty: 32 0RF Rx Instructions: Take 4 tablets daily for 3 days then 3 tablets daily for 3 days then 2 tablets daily for 3 days then 1 tablet daily for 3 days then half tablet daily for 4 days Continued peg 3350-electrolytes [Golytely] 236-22.74-6.74 -5.86 gram recon soln 240 ml PO Q10M Qty: 4000 0RF Rx Instructions: as directed for split dose bowel prep carvedilol 12.5 mg tablet 1 tab PO DAILY citalopram 10 mg tablet 1 tab PO DAILY clopidogrel 75 mg tablet 1 tab PO DAILY amlodipine 10 mg tablet 1 tab PO DAILY cholecalciferol (vitamin D3) 50 mcg (2,000 unit) tablet 1 tab PO DAILY calcium carbonate [Calcium 500] 500 mg calcium (1,250 mg) tablet,chewable 500 mg PO DAILY anastrozole 1 mg tablet 1 mg PO DAILY bisacodyl 10 mg suppository 10 mg AR DAILY PRN (Reason: constipation) lisinopril 30 mg tablet 30 mg PO DAILY magnesium hydroxide [Milk of Magnesia] 400 mg/5 mL suspension 30 ml PO DAILY PRN (Reason: constipation) ondansetron HCl 4 mg tablet 4 mg PO Q6H PRN (Reason: nausea and vomiting) doxazosin 1 mg tablet 1 mg PO DAILY levothyroxine 88 mcg tablet 88 mcg PO DAILY insulin glargine [Basaglar KwikPen U-100 Insulin] 100 unit/mL (3 mL) insulin pen 10 unit subcut QHS mineral oil [Fleet Mineral Oil] Enema 118 ml AR DAILY PRN (Reason: constipation) Rx Instructions: discard any unused portion glucagon 1 mg/0.2 mL auto-injector 1 mg subcut PRN Patient Comments: 1 APPLICATION EVERY 15 MIN PRN dextrose [Glucose Gel] 40 % gel 15 g PO Q15M PRN (Reason: hypoglycemia) Rx Instructions: until symptoms of low blood sugar are controlled calcium carbonate [Calcium 500] 500 mg calcium (1,250 mg) tablet,chewable 500 mg PO Q4H PRN PRN (Reason: indigestion) acetaminophen 500 mg capsule 1,000 mg PO Q8H PRN (Reason: pain) Referrals / Follow Up: Allen Obrien MD [Primary Care Provider, Family Practice] Disposition Disposition (needs filled in before D/C Order can be placed): [facility] Charges/Coding Visit Charges Inpatient E&M: 91262 Disch Hosp >30min
== END 2025-08-09 16:10 | DRG 139 ==
LOC: ED 03:55 → MS3 04:11
PROVIDERS: Admitting Provider Family Medicine; Emergency Provider Emergency Medicine; PCP Family Medicine; Visit Provider Family Medicine
DX: J18.9 Pneumonia, unspecified organism (principal); J44.0 Chronic obstructive pulmonary disease with (acute) lower respiratory infection; E11.22 Type 2 diabetes mellitus with diabetic chronic kidney disease; D50.9 Iron deficiency anemia, unspecified; J45.901 Unspecified asthma with (acute) exacerbation; N18.30 Chronic kidney disease, stage 3 unspecified; E03.9 Hypothyroidism, unspecified; I12.9 Hypertensive chronic kidney disease with stage 1 through stage 4 chronic kidney disease, or unspecified chronic kidney disease; F32.A Depression, unspecified; E66.9 Obesity, unspecified; J44.1 Chronic obstructive pulmonary disease with (acute) exacerbation; Z79.4 Long term (current) use of insulin; E78.5 Hyperlipidemia, unspecified; F41.9 Anxiety disorder, unspecified; F12.90 Cannabis use, unspecified, uncomplicated; Z79.811 Long term (current) use of aromatase inhibitors; Z79.02 Long term (current) use of antithrombotics/antiplatelets; Z86.73 Personal history of transient ischemic attack (TIA), and cerebral infarction without residual deficits; R09.02 Hypoxemia; Z87.891 Personal history of nicotine dependence; Z85.3 Personal history of malignant neoplasm of breast
CPT/HCPCS: 36415; 71045; 71250; 80048; 80053; 81001; 82962; 83605; 83735; 83880; 84145; 85025; 87040; 87449; 87631; 87633; 93005; 94640; 94668; 99285; A4216; J2405

== ENCOUNTER 2025-10-05 10:37 | Day surgery (SDC) | payer MEDICAID, SELFPAY ==
--- NOTE | 2025-08-23 17:08 | PAT.ANESEVAL ---
Pre-Assessment Diagnosis/Proposed Procedure Planned Operative Procedure(s): CSCOPE Anesthesia History Anesthesia History - novelty twister tender: Anesthesia History - novelty twister tender Hx Hospitalization Yes: 08/07/25 PNEUMONIA 08/23/25 09:23 Any Problems With Anesthesia No 08/23/25 09:23 Cholinesterase deficiency No 08/23/25 09:23 You/Your Family Experience No 08/23/25 09:23 fever (hyperthermia) with Relationship Recent Exposure to Contagious No 03/23/25 09:29 Disease Does patient have nerve No 08/23/25 09:23 stimulator Patient instructed to have device shut off --Does patient have Pacemaker or ICD? When Was Last Pacemaker Check QUESTION #4 FULL TEXT: You/Your Family Experience fever (hyperthermia) with Anesthesia Last Oral Intake Last Oral intake: Last Oral Intake NPO since Meds taken in AM with sips of water? Meds patient instructed to take am of surgery PONV PONV - novelty twister tender: PONV - novelty twister tender Female Yes 08/23/25 09:23 HX of Motion Sickness No 08/23/25 09:23 HX of N/V After Surgery No 08/23/25 09:23 Non-Smoker Yes 08/23/25 09:23 Duration of Surgery greater No 08/23/25 09:23 than 60 minutes Number of Risk Factors 2 08/23/25 09:23 PONV Score Moderate Risk 08/23/25 09:23 Height & Weight Height & Weight: Anesthesia: Height & Weight Height 5 ft 08/09/25 09:38 Respiratory Assessment Respiratory Assessment - novelty twister tender: Respiratory Tract Infection Hx - novelty twister tender Hx Respiratory Tract Infection Yes: PNEUMONIA 08/23/25 09:23 STOP Sleep Apnea STOP Sleep Apnea - novelty twister tender: STOP Sleep Apnea - novelty twister tender Hx Hypertension Yes 08/23/25 09:23 Hx Sleep Apnea Yes 08/23/25 09:23 CPAP No 08/23/25 09:23 BIPAP No 08/23/25 09:23 Do you snore loudly (louder than talking or can be heard Do you often feel tired/ fatigued/ sleepy during daytime? Has anyone observed you stop breathing during sleep? STOP Results Positive 08/23/25 09:23 QUESTION #5 FULL TEXT : Do you snore loudly (louder than talking or can be heard through closed doors)? 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 Specify any problems Hx of Preganancy in last 3 N/A 08/23/25 09:23 Months Nurse Filling Out Transfusion [facility] 08/23/25 09:23 & Questions: Date: 08/23/25 08/23/25 09:23 Time: 08/23/25 09:23 Patient unable to answer at this time (ie. confused, unrespo /Reproduction History /Reproductive History - novelty twister tender: /Reproductive Hx- novelty twister tender Hx Now No 08/23/25 09:23 Gestational Age (in weeks): EDC: Hx Hx Para Hx Section SAB No 08/23/25 09:23 Does the father of the baby or his family experience fever w Father of the baby Malignant Hypertension history comment [facility] Medical History (Updated 08/23/25 @ 09:33 by Martha Arita) Cerebral infarction History of renal disease Wears dentures Cancer Uses wheelchair Shortness of breath on exertion History of echocardiogram History of stress test Smoker Fall Hypoglycemia Hypoglycemia CKD (chronic kidney disease) stage 3, GFR 30-59 ml/min Former smoker Sleep apnea COPD (chronic obstructive pulmonary disease) Tobacco abuse Right knee pain Noncompliance w/medication treatment due to intermit use of medication CVA (cerebral vascular accident) Vertigo Constipation Flu vaccine need Noncompliance Hypertension Right hip pain Acute infarct right urban radiata Fall Type 2 diabetes mellitus Hypothyroidism Vision problems Thyroid disease High blood pressure Hearing problem Diabetes Carpal tunnel syndrome Breast cancer Asthma Arthritis Home Medications ?Medication ?Instructions ?Recorded ?Last Taken ?Type amlodipine 10 mg tablet 1 tab PO DAILY blood pressure 04/29/22 Unknown History carvedilol 12.5 mg tablet 1 tab PO DAILY blood pressure 04/29/22 Unknown History cholecalciferol (vitamin D3) 50 1 tab PO DAILY supplement 04/29/22 Unknown History mcg (2,000 unit) tablet citalopram 10 mg tablet 1 tab PO DAILY depression 04/29/22 Unknown History clopidogrel 75 mg tablet 1 tab PO DAILY antiplatelet 04/29/22 Unknown History anastrozole 1 mg tablet 1 mg PO DAILY 06/17/24 Unknown History bisacodyl 10 mg rectal suppository 10 mg [place] DAILY PRN constipation 06/17/24 Unknown History calcium carbonate (Calcium 500) 500 mg PO DAILY 06/17/24 Unknown History lisinopril 30 mg tablet 30 mg PO DAILY 06/17/24 Unknown History magnesium hydroxide 400 mg/5 mL 30 ml PO DAILY PRN constipation 06/17/24 Unknown History oral suspension (Milk of Magnesia) ondansetron HCl 4 mg tablet 4 mg PO Q6H PRN nausea and vomiting 06/17/24 Unknown History peg 3350-electrolytes 236 240 ml PO Q10M #4,000 mL 12/30/24 Unknown Rx gram-22.74 gram-6.74 gram-5.86 gram solution (Golytely) acetaminophen 500 mg capsule 1,000 mg PO Q8H PRN pain 03/22/25 Unknown History calcium carbonate (Calcium 500) 500 mg PO Q4H PRN PRN indigestion 03/22/25 Unknown History dextrose 40 % oral gel (Glucose 15 g PO Q15M PRN hypoglycemia 03/22/25 Unknown History Gel) doxazosin 1 mg tablet 1 mg PO DAILY 03/22/25 Unknown History insulin glargine 100 unit/mL (3 10 unit subcut QHS 03/22/25 Unknown History mL) subcutaneous pen (Basaglar KwikPen U-100 Insulin) levothyroxine 88 mcg tablet 88 mcg PO DAILY 03/22/25 Unknown History mineral oil (Fleet Mineral Oil 118 ml [place] DAILY PRN constipation 03/22/25 Unknown History enema) prednisone 10 mg tablet 10 mg PO DAILY #32 tabs 08/09/25 Unknown Rx insulin lispro 100 unit/mL 1 sliding scale dose subcut ACHS 08/23/25 Unknown History subcutaneous pen (Humalog KwikPen (U-100) Insulin) Allergy/AdvReac Type Severity Reaction Status Date / Time aspirin Allergy Unknown Nausea Verified 08/23/25 09:21 albuterol AdvReac I GET VERY Verified 08/23/25 09:21 SHAKEY/HYPERVENTILATING Penicillins AdvReac Nausea/Vom/ Verified 08/23/25 09:21 Diarrhea Family History (Updated 08/07/25 @ 04:[address] Kellie Beatty MD) Father Cancer bone cancer Brother Heart disease Mother Heart disease Surgical History History of section H/O mastectomy History of appendectomy Social History (Updated 08/07/25 @ 04:[address] Kellie Beatty MD) housing: assisted Smoking Status: Former smoker Tobacco: How many years used: 50 alcohol intake: never substance use type: marijuana and other details: smokes 4 joints a day Audit: Pertinent Findings Pertinent Findings EKG Perinent findings: EKG 08/07/2025. Normal sinus rhythm. Recommendation Anesthesia Recommendation Anesthesia recommendation: F/U recommended (The patient was recently diagnosed with pneumonia in 08/07/2025. The recommendation is to postpone anesthesia 4 to 6 weeks post pneumonia.)
--- NOTE | 2025-09-14 10:23 | PAT.ANE_ITS ---
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 When Was Last Pacemaker Check QUESTION #4 FULL TEXT: You/Your Family Experience fever (hyperthermia) with Anesthesia Last Oral Intake Last Oral intake: Last Oral Intake NPO since Meds taken in AM with sips of water? Meds patient instructed to take am of surgery PONV PONV - dermatology sales representative: PONV - dermatology sales representative Female Yes 08/23/25 09:23 HX of Motion Sickness No 08/23/25 09:23 HX of N/V After Surgery No 08/23/25 09:23 Non-Smoker Yes 08/23/25 09:23 Duration of Surgery greater No 08/23/25 09:23 than 60 minutes Number of Risk Factors 2 08/23/25 09:23 PONV Score Moderate Risk 08/23/25 09:23 Height & Weight Height & Weight: Anesthesia: Height & Weight Height 5 ft 08/09/25 09:38 Respiratory Assessment Respiratory Assessment - dermatology sales representative: Respiratory Tract Infection Hx - dermatology sales representative Hx Respiratory Tract Infection Yes: PNEUMONIA 08/23/25 09:23 STOP Sleep Apnea STOP Sleep Apnea - dermatology sales representative: STOP Sleep Apnea - dermatology sales representative Hx Hypertension Yes 08/23/25 09:23 Hx Sleep Apnea Yes 08/23/25 09:23 CPAP No 08/23/25 09:23 BIPAP No 08/23/25 09:23 Do you snore loudly (louder than talking or can be heard Do you often feel tired/ fatigued/ sleepy during daytime? Has anyone observed you stop breathing during sleep? STOP Results Positive 08/23/25 09:23 QUESTION #5 FULL TEXT : Do you snore loudly (louder than talking or can be heard through closed doors)? 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 Specify any problems Hx of Preganancy in last 3 N/A 08/23/25 09:23 Months Nurse Filling Out Transfusion [facility] 08/23/25 09:23 & Questions: Date: 08/23/25 08/23/25 09:23 Time: 08/23/25 09:23 Patient unable to answer at this time (ie. confused, unrespo /Reproduction History /Reproductive History - dermatology sales representative: /Reproductive Hx- dermatology sales representative Hx Now No 08/23/25 09:23 Gestational Age (in weeks): EDC: Hx Hx Para Hx Section SAB No 08/23/25 09:23 Does the father of the baby or his family experience fever w Father of the baby Malignant Hypertension history comment [facility] Medical History Cerebral infarction History of renal disease Wears dentures Cancer Uses wheelchair Shortness of breath on exertion History of echocardiogram History of stress test Smoker Fall Hypoglycemia Hypoglycemia CKD (chronic kidney disease) stage 3, GFR 30-59 ml/min Former smoker Sleep apnea COPD (chronic obstructive pulmonary disease) Tobacco abuse Right knee pain Noncompliance w/medication treatment due to intermit use of medication CVA (cerebral vascular accident) Vertigo Constipation Flu vaccine need Noncompliance Hypertension Right hip pain Acute infarct right urban radiata Fall Type 2 diabetes mellitus Hypothyroidism Vision problems Thyroid disease High blood pressure Hearing problem Diabetes Carpal tunnel syndrome Breast cancer Asthma Arthritis Home Medications ?Medication ?Instructions ?Recorded ?Last Taken ?Type amlodipine 10 mg tablet 1 tab PO DAILY blood pressur e 04/29/22 Unknown History carvedilol 12.5 mg tablet 1 tab PO DAILY blood pressur e 04/29/22 Unknown History cholecalciferol (vitamin D3) 50 1 tab PO DAILY supplem ent 04/29/22 Unknown History mcg (2,000 unit) tablet citalopram 10 mg tablet 1 tab PO DAILY depression Unknown History clopidogrel 75 mg tablet 1 tab PO DAILY antiplatelet 04/29/22 Unknown History anastrozole 1 mg tablet 1 mg PO DAILY 06/17/24 Unkno wn History bisacodyl 10 mg rectal suppository 10 mg [place] DAILY PRN constipation 06/17/24 Unknown History calcium carbonate (Calcium 500) 500 mg PO DAILY Unknown History lisinopril 30 mg tablet 30 mg PO DAILY 06/17/24 Unkn own History magnesium hydroxide 400 mg/5 mL 30 ml PO DAILY PRN con stipation 06/17/24 Unknown History oral suspension (Milk of Magnesia) ondansetron HCl 4 mg tablet 4 mg PO Q6H PRN nausea and vomiting 06/17/24 Unknown History peg 3350-electrolytes 236 240 ml PO Q10M #4,000 mL Unknown Rx gram-22.74 gram-6.74 gram-5.86 gram solution (Golytely) acetaminophen 500 mg capsule 1,000 mg PO Q8H PRN pain 03/22/25 Unknown History calcium carbonate (Calcium 500) 500 mg PO Q4H PRN PRN indigestion 03/22/25 Unknown History dextrose 40 % oral gel (Glucose 15 g PO Q15M PRN hypog lycemia 03/22/25 Unknown History Gel) doxazosin 1 mg tablet 1 mg PO DAILY 03/22/25 Unkno wn History insulin glargine 100 unit/mL (3 10 unit subcut QHS Unknown History mL) subcutaneous pen (Shahanaaglvickie Bee U-100 Insulin) levothyroxine 88 mcg tablet 88 mcg PO DAILY 03/22/25 U nknown History mineral oil (Fleet Mineral Oil 118 ml [place] DAILY PRN con stipation 03/22/25 Unknown History enema) prednisone 10 mg tablet 10 mg PO DAILY #32 tabs 11/0 01/28 Unknown Rx insulin lispro 100 unit/mL 1 sliding scale dose subcut ACHS 08/23/25 Unknown History subcutaneous pen (Humalog KwikPen (U-100) Insulin) Allergy/AdvReac Type Severity Reaction Status Date / Time aspirin Allergy Unknown Nausea Verified 08/23/25 09:21 albuterol AdvReac I GET VERY Verified 08/23/25 09:21 SHAKEY/HYPERVENTILATING Penicillins AdvReac Nausea/Vom/ Verified 08/23/25 09:21 Diarrhea Family History Father Cancer bone cancer Brother Heart disease Mother Heart disease Surgical History History of section H/O mastectomy History of appendectomy Social History housing: detention Smoking Status: Former smoker Tobacco: How many years used: 50 alcohol intake: never substance use type: marijuana and other details: smokes 4 joints a day Audit: Pertinent Findings HISTORY of Pertinent Findings History of Pertinent Findings: EKG Pertinent Findings EKG Perinent findings EKG 08/07/2025. Normal sinus 08/23/25 17:10 rhythm. Recommendation Anesthesia Recommendation Anesthesia recommendation: F/U recommended
--- NOTE | 2025-10-03 13:52 | PAT.ANESEVAL ---
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 When Was Last Pacemaker Check QUESTION #4 FULL TEXT: You/Your Family Experience fever (hyperthermia) with Anesthesia Last Oral Intake Last Oral intake: Last Oral Intake NPO since Meds taken in AM with sips of water? Meds patient instructed to take am of surgery PONV PONV - transportation supervisor: PONV - transportation supervisor Female Yes 10/03/25 10:59 HX of Motion Sickness No 10/03/25 10:59 HX of N/V After Surgery No 10/03/25 10:59 Non-Smoker Yes 10/03/25 10:59 Duration of Surgery greater No 10/03/25 10:59 than 60 minutes Number of Risk Factors 2 10/03/25 10:59 PONV Score Moderate Risk 10/03/25 10:59 Height & Weight Height & Weight: Anesthesia: Height & Weight Height 5 ft 08/09/25 09:38 Respiratory Assessment Respiratory Assessment - transportation supervisor: Respiratory Tract Infection Hx - transportation supervisor Hx Respiratory Tract Infection Yes: PNEUMONIA 10/03/25 10:59 STOP Sleep Apnea STOP Sleep Apnea - transportation supervisor: STOP Sleep Apnea - transportation supervisor Hx Hypertension Yes 10/03/25 10:59 Hx Sleep Apnea Yes 10/03/25 10:59 CPAP No 10/03/25 10:59 BIPAP No 10/03/25 10:59 Do you snore loudly (louder than talking or can be heard Do you often feel tired/ fatigued/ sleepy during daytime? Has anyone observed you stop breathing during sleep? STOP Results Positive 10/03/25 10:59 QUESTION #5 FULL TEXT : Do you snore loudly (louder than talking or can be heard through closed doors)? 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 Specify any problems Hx of Preganancy in last 3 N/A 10/03/25 10:59 Months Nurse Filling Out Transfusion [facility] 10/03/25 10:59 & Questions: Date: 10/03/25 10/03/25 10:59 Time: 10:59 10/03/25 10:59 Patient unable to answer at this time (ie. confused, unrespo /Reproduction History /Reproductive History - transportation supervisor: /Reproductive Hx- transportation supervisor Hx Now No 10/03/25 10:59 Gestational Age (in weeks): EDC: Hx Hx Para Hx Section SAB No 10/03/25 10:59 Does the father of the baby or his family experience fever w Father of the baby Malignant Hypertension history comment [facility] Medical History Cerebral infarction History of renal disease Wears dentures Cancer Uses wheelchair Shortness of breath on exertion History of echocardiogram History of stress test Smoker Fall Hypoglycemia Hypoglycemia CKD (chronic kidney disease) stage 3, GFR 30-59 ml/min Former smoker Sleep apnea COPD (chronic obstructive pulmonary disease) Tobacco abuse Right knee pain Noncompliance w/medication treatment due to intermit use of medication CVA (cerebral vascular accident) Vertigo Constipation Flu vaccine need Noncompliance Hypertension Right hip pain Acute infarct right urban radiata Fall Type 2 diabetes mellitus Hypothyroidism Vision problems Thyroid disease High blood pressure Hearing problem Diabetes Carpal tunnel syndrome Breast cancer Asthma Arthritis Home Medications ?Medication ?Instructions ?Recorded ?Last Taken ?Type amlodipine 10 mg tablet 1 tab PO DAILY blood pressure 04/29/22 Unknown History carvedilol 12.5 mg tablet 1 tab PO DAILY blood pressure 04/29/22 Unknown History cholecalciferol (vitamin D3) 50 1 tab PO DAILY supplement 04/29/22 Unknown History mcg (2,000 unit) tablet citalopram 10 mg tablet 1 tab PO DAILY depression 04/29/22 Unknown History clopidogrel 75 mg tablet 1 tab PO DAILY antiplatelet 04/29/22 Unknown History Held on 10/03/25. Instructions: MD Ordered anastrozole 1 mg tablet 1 mg PO DAILY 06/17/24 Unknown History bisacodyl 10 mg rectal suppository 10 mg [place] DAILY PRN constipation 06/17/24 Unknown History calcium carbonate (Calcium 500) 500 mg PO DAILY 06/17/24 Unknown History lisinopril 30 mg tablet 30 mg PO DAILY 06/17/24 Unknown History magnesium hydroxide 400 mg/5 mL 30 ml PO DAILY PRN constipation 06/17/24 Unknown History oral suspension (Milk of Magnesia) ondansetron HCl 4 mg tablet 4 mg PO Q6H PRN nausea and vomiting 06/17/24 Unknown History peg 3350-electrolytes 236 240 ml PO Q10M #4,000 mL 12/30/24 Unknown Rx gram-22.74 gram-6.74 gram-5.86 gram solution (Golytely) acetaminophen 500 mg capsule 1,000 mg PO Q8H PRN pain 03/22/25 Unknown History calcium carbonate (Calcium 500) 500 mg PO Q4H PRN PRN indigestion 03/22/25 Unknown History dextrose 40 % oral gel (Glucose 15 g PO Q15M PRN hypoglycemia 03/22/25 Unknown History Gel) doxazosin 1 mg tablet 1 mg PO DAILY 03/22/25 Unknown History insulin glargine 100 unit/mL (3 10 unit subcut QHS 03/22/25 Unknown History mL) subcutaneous pen (Basaglar KwikPen U-100 Insulin) levothyroxine 88 mcg tablet 88 mcg PO DAILY 03/22/25 Unknown History mineral oil (Fleet Mineral Oil 118 ml [place] DAILY PRN constipation 03/22/25 Unknown History enema) prednisone 10 mg tablet 10 mg PO DAILY #32 tabs 08/09/25 Unknown Rx insulin lispro 100 unit/mL 1 sliding scale dose subcut ACHS 08/23/25 Unknown History subcutaneous pen (Humalog KwikPen (U-100) Insulin) Allergy/AdvReac Type Severity Reaction Status Date / Time aspirin Allergy Unknown Nausea Verified 10/03/25 10:42 albuterol AdvReac I GET VERY Verified 10/03/25 10:42 SHAKEY/HYPERVENTILATING Penicillins AdvReac Nausea/Vom/ Verified 10/03/25 10:42 Diarrhea Family History Father Cancer bone cancer Brother Heart disease Mother Heart disease Surgical History History of section H/O mastectomy History of appendectomy Social History housing: halfway Smoking Status: Former smoker Tobacco: How many years used: 50 alcohol intake: never substance use type: marijuana and other details: smokes 4 joints a day Audit: Pertinent Findings HISTORY of Pertinent Findings History of Pertinent Findings: EKG Pertinent Findings EKG Perinent findings EKG 08/07/2025. Normal sinus 08/23/25 17:10 rhythm. Pertinent Findings Additional pertinent findings: Previous colonoscopy was canceled due to patient being on as needed O2. Per report patient has been off O2 for about 4 weeks. Seems okay to proceed. Final decision will be made by anesthesiologist on the morning day of procedure Recommendation Anesthesia Recommendation Anesthesia recommendation: OPTIMIZED for anesthesia
[2025-10-05] VITALS (10 sets, daily range): BP systolic 128–177; BP diastolic 71–100; PULSE 70–84; RESP 12–20; TEMP 36.1–37.1; O2SAT 94–100; BMI 25.9
--- NOTE | 2025-10-05 10:58 | PCM.PRE.AN2 ---
ASA Classification* ASA Classification ASA Classification: 2 Assessment & Plan Anesthesia* Anesthesia Assessment Anesthesia Assessment: Discussed sedation and/or anesthesia options, risks, benefits, and alternatives with patient/parents/legal guardian/POA. Questions invited. The patient/parents/legal guardian/POA seems to understand and agrees to proceed with anesthesia plan. Reviewed the physical assessment, medical history, allergy history and patient home medications list prior to surgery/procedure/anesthetic and documented any changes. Performed airway and anesthesia risk assessments. Anesthesia Type Anesthesia Type: MAC Anesthesia Focused Assessment* Airway Assessment Mouth opens: >3 cm Mallampati Score: II Labs Anesthesia Preop lab: CBC WBC, (4.4-11.0) 19.6 K/mm3 H 08/09/25, 06:45 RBC, (4.2-5.4) 4.41 M/mm3 08/09/25, 06:45 Hgb, (12.0-15.0) 10.9 g/dL L 08/09/25, 06:45 Hct, (37-47) 35.8 % L 08/09/25, 06:45 Plt Count, (150-450) 411 K/mm3 08/09/25, 06:45 CHEMISTRY Potassium, (3.3-5.1) 4.4 mmol/L 08/09/25, 06:45 Sodium, (133-145) 138 mmol/L 08/09/25, 06:45 Magnesium, (1.5-2.2) 1.8 mg/dL 08/07/25, 01:02 Phosphorus, (2.5-4.9) 3.5 mg/dL 01/12/20, 05:32 BUN, (4-19) 45 mg/dL H 08/09/25, 06:45 Creatinine, (0.70-1.20) 2.11 mg/dL H 08/09/25, 06:45 Glucose, (70-99) 238 mg/dL H 08/09/25, 06:45 POC Glucose, (74-106) 224 mg/dL H 08/09/25, 10:59 TSH, (0.300-4.200) 0.620 uIU/mL 12/30/24, 15:47 COAG PT, (11.7-14.9) 16.6 SECONDS H 06/17/24, 18:42 Pre-Assessment Diagnosis/Proposed Procedure Planned Operative Procedure(s): CSCOPE Anesthesia History Anesthesia History - sales agent financial report service: Anesthesia History - sales agent financial report service Hx Hospitalization Yes: 08/07/25 PNEUMONIA 10/03/25 10:59 Any Problems With Anesthesia No 10/03/25 10:59 Cholinesterase deficiency No 10/03/25 10:59 You/Your Family Experience No 10/03/25 10:59 fever (hyperthermia) with Relationship Recent Exposure to Contagious No 03/23/25 09:29 Disease Does patient have nerve No 10/03/25 10:59 stimulator Patient instructed to have device shut off --Does patient have Pacemaker or ICD? When Was Last Pacemaker Check QUESTION #4 FULL TEXT: You/Your Family Experience fever (hyperthermia) with Anesthesia Last Oral Intake Last Oral intake: Last Oral Intake NPO since Meds taken in AM with sips of water? Meds patient instructed to take am of surgery PONV PONV - sales agent financial report service: PONV - sales agent financial report service Female Yes 10/03/25 10:59 HX of Motion Sickness No 10/03/25 10:59 HX of N/V After Surgery No 10/03/25 10:59 Non-Smoker Yes 10/03/25 10:59 Duration of Surgery greater No 10/03/25 10:59 than 60 minutes Number of Risk Factors 2 10/03/25 10:59 PONV Score Moderate Risk 10/03/25 10:59 Height & Weight Height & Weight: Anesthesia: Height & Weight Height 5 ft 08/09/25 09:38 Respiratory Assessment Respiratory Assessment - sales agent financial report service: Respiratory Tract Infection Hx - sales agent financial report service Hx Respiratory Tract Infection Yes: PNEUMONIA 10/03/25 10:59 STOP Sleep Apnea STOP Sleep Apnea - sales agent financial report service: STOP Sleep Apnea - sales agent financial report service Hx Hypertension Yes 10/03/25 10:59 Hx Sleep Apnea Yes 10/03/25 10:59 CPAP No 10/03/25 10:59 BIPAP No 10/03/25 10:59 Do you snore loudly (louder than talking or can be heard Do you often feel tired/ fatigued/ sleepy during daytime? Has anyone observed you stop breathing during sleep? STOP Results Positive 10/03/25 10:59 QUESTION #5 FULL TEXT : Do you snore loudly (louder than talking or can be heard through closed doors)? 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 Specify any problems Hx of Preganancy in last 3 N/A 10/03/25 10:59 Months Nurse Filling Out Transfusion VLEHELBA 10/03/25 10:59 & Questions: Date: 10/03/25 10/03/25 10:59 Time: 10:59 10/03/25 10:59 Patient unable to answer at this time (ie. confused, unrespo /Reproduction History /Reproductive History - sales agent financial report service: /Reproductive Hx- sales agent financial report service Hx Now No 10/03/25 10:59 Gestational Age (in weeks): EDC: Hx Hx Para Hx Section SAB No 10/03/25 10:59 Does the father of the baby or his family experience fever w Father of the baby Malignant Hypertension history comment Active Medications Active Medications: Current Medications Generic Name Dose Route Start Last Admin Trade Name Freq PRN Reason Stop Dose Admin Lactated Ringer's 1,000 mls @ 15 mls/hr 10/05/25 11:00 IV .Q48H VANNESSA PFSH Medical History Cerebral infarction History of renal disease Wears dentures Cancer Uses wheelchair Shortness of breath on exertion History of echocardiogram History of stress test Smoker Fall Hypoglycemia Hypoglycemia CKD (chronic kidney disease) stage 3, GFR 30-59 ml/min Former smoker Sleep apnea COPD (chronic obstructive pulmonary disease) Tobacco abuse Right knee pain Noncompliance w/medication treatment due to intermit use of medication CVA (cerebral vascular accident) Vertigo Constipation Flu vaccine need Noncompliance Hypertension Right hip pain Acute infarct right urban radiata Fall Type 2 diabetes mellitus Hypothyroidism Vision problems Thyroid disease High blood pressure Hearing problem Diabetes Carpal tunnel syndrome Breast cancer Asthma Arthritis Home Medications ?Medication ?Instructions ?Recorded ?Last Taken ?Type amlodipine 10 mg tablet 1 tab PO DAILY blood pressure 04/29/22 Unknown History carvedilol 12.5 mg tablet 1 tab PO DAILY blood pressure 04/29/22 Unknown History cholecalciferol (vitamin D3) 50 1 tab PO DAILY supplement 04/29/22 Unknown History mcg (2,000 unit) tablet citalopram 10 mg tablet 1 tab PO DAILY depression 04/29/22 Unknown History clopidogrel 75 mg tablet 1 tab PO DAILY antiplatelet 04/29/22 Unknown History Held on 10/03/25. Instructions: MD Ordered anastrozole 1 mg tablet 1 mg PO DAILY 06/17/24 Unknown History bisacodyl 10 mg rectal suppository 10 mg UT DAILY PRN constipation 06/17/24 Unknown History calcium carbonate (Calcium 500) 500 mg PO DAILY 06/17/24 Unknown History lisinopril 30 mg tablet 30 mg PO DAILY 06/17/24 Unknown History magnesium hydroxide 400 mg/5 mL 30 ml PO DAILY PRN constipation 06/17/24 Unknown History oral suspension (Milk of Magnesia) ondansetron HCl 4 mg tablet 4 mg PO Q6H PRN nausea and vomiting 06/17/24 Unknown History peg 3350-electrolytes 236 240 ml PO Q10M #4,000 mL 12/30/24 Unknown Rx gram-22.74 gram-6.74 gram-5.86 gram solution (Golytely) acetaminophen 500 mg capsule 1,000 mg PO Q8H PRN pain 03/22/25 Unknown History calcium carbonate (Calcium 500) 500 mg PO Q4H PRN PRN indigestion 03/22/25 Unknown History dextrose 40 % oral gel (Glucose 15 g PO Q15M PRN hypoglycemia 03/22/25 Unknown History Gel) doxazosin 1 mg tablet 1 mg PO DAILY 03/22/25 Unknown History insulin glargine 100 unit/mL (3 10 unit subcut QHS 03/22/25 Unknown History mL) subcutaneous pen (Basaglar KwikPen U-100 Insulin) levothyroxine 88 mcg tablet 88 mcg PO DAILY 03/22/25 Unknown History mineral oil (Fleet Mineral Oil 118 ml UT DAILY PRN constipation 03/22/25 Unknown History enema) prednisone 10 mg tablet 10 mg PO DAILY #32 tabs 08/09/25 Unknown Rx insulin lispro 100 unit/mL 1 sliding scale dose subcut ACHS 08/23/25 Unknown History subcutaneous pen (Humalog KwikPen (U-100) Insulin) Allergy/AdvReac Type Severity Reaction Status Date / Time aspirin Allergy Unknown Nausea Verified 10/05/25 10:54 albuterol AdvReac I GET VERY Verified 10/05/25 10:54 SHAKEY/HYPERVENTILATING Penicillins AdvReac Nausea/Vom/ Verified 10/05/25 10:54 Diarrhea Family History Father Cancer bone cancer Brother Heart disease Mother Heart disease Surgical History History of section H/O mastectomy History of appendectomy Social History housing: longterm Smoking Status: Former smoker Tobacco: How many years used: 50 alcohol intake: never substance use type: marijuana and other details: smokes 4 joints a day Review of Systems (Anesthesia) ROS Narrative System reviewed and no additional complaints, except as documented.
[2025-10-05] MEDS: Lactated Ringers 1,000 ML 15 ML IV (11:09)
--- NOTE | 2025-10-05 11:15 | PCM.HP.STD ---
HPI - General General Date of Admission: 10/05/25 Date of Service: 10/05/25 Chief Complaint: Polyp with low-grade dysplasia HPI Narrative CARMEN HUGGINS, is a 70 F who presents [Chief Complaint: Weight loss and personal history of polyps Last office visit 12/30/2024 with Janeen Wilde NP for unintentional weight loss. With 20 pound weight loss over the past [address] abdomen pelvis 12/23/2024 with focal wall thickening versus underdistention along the antral pyloric stomach, small duodenal lipoma, and understanding gallbladder with mild nonspecific wall thickening, cholelithiasis and normal CBD. Colonoscopy 03/23/2025 - Diverticulosis in the recto-sigmoid colon and in the sigmoid colon. - One 8 mm polyp in the transverse colon, removed with a hot snare. Resected and retrieved. - One 4 mm polyp in the ascending colon, removed with a jumbo cold forceps. Resected and retrieved. EGD 03/23/2025 - Z-line irregular, 39 cm from the incisors. Biopsied. - Normal stomach. - Chronic duodenitis. Biopsied. - Duodenal lipoma. Biopsied. Pathology distal esophagus oxyntic mucosa negative for goblet cell metaplasia. Duodenum normal villous architecture with gastric mucin cell metaplasia and mild acute inflammation. Duodenal bulb, normal villous architecture with Garfield gland hyperplasia. Hepatic flexure tubular adenoma. Transverse colon multiple fragments of polyp findings suggestive of sessile serrated lesion however marked cautery artifact interferes with the assessment a low-grade dysplasia cannot be excluded. *Per Dr. Interiano recommendation she should have repeat colonoscopy in 6 months OV 07/29/2025 patient having loose stool intermittently. When she does have loose stool it will be for the entire day. This is new over the past few months. She denies abdominal pain, nausea, vomiting, heartburn or blood in her stool. [facility] Medical History Cerebral infarction History of renal disease Wears dentures Cancer Uses wheelchair Shortness of breath on exertion History of echocardiogram History of stress test Smoker Fall Hypoglycemia Hypoglycemia CKD (chronic kidney disease) stage 3, GFR 30-59 ml/min Former smoker Sleep apnea COPD (chronic obstructive pulmonary disease) Tobacco abuse Right knee pain Noncompliance w/medication treatment due to intermit use of medication CVA (cerebral vascular accident) Vertigo Constipation Flu vaccine need Noncompliance Hypertension Right hip pain Acute infarct right urban radiata Fall Type 2 diabetes mellitus Hypothyroidism Vision problems Thyroid disease High blood pressure Hearing problem Diabetes Carpal tunnel syndrome Breast cancer Asthma Arthritis Home Medications ?Medication ?Instructions ?Recorded ?Last Taken ?Type amlodipine 10 mg tablet 1 tab PO DAILY blood pressure 04/29/22 Unknown History carvedilol 12.5 mg tablet 1 tab PO DAILY blood pressure 04/29/22 Unknown History cholecalciferol (vitamin D3) 50 1 tab PO DAILY supplement 04/29/22 Unknown History mcg (2,000 unit) tablet citalopram 10 mg tablet 1 tab PO DAILY depression 04/29/22 Unknown History clopidogrel 75 mg tablet 1 tab PO DAILY antiplatelet 04/29/22 Unknown History Held on 10/03/25. Instructions: MD Ordered anastrozole 1 mg tablet 1 mg PO DAILY 06/17/24 Unknown History bisacodyl 10 mg rectal suppository 10 mg ME DAILY PRN constipation 06/17/24 Unknown History calcium carbonate (Calcium 500) 500 mg PO DAILY 06/17/24 Unknown History lisinopril 30 mg tablet 30 mg PO DAILY 06/17/24 Unknown History magnesium hydroxide 400 mg/5 mL 30 ml PO DAILY PRN constipation 06/17/24 Unknown History oral suspension (Milk of Magnesia) ondansetron HCl 4 mg tablet 4 mg PO Q6H PRN nausea and vomiting 06/17/24 Unknown History peg 3350-electrolytes 236 240 ml PO Q10M #4,000 mL 12/30/24 Unknown Rx gram-22.74 gram-6.74 gram-5.86 gram solution (Golytely) acetaminophen 500 mg capsule 1,000 mg PO Q8H PRN pain 03/22/25 Unknown History calcium carbonate (Calcium 500) 500 mg PO Q4H PRN PRN indigestion 03/22/25 Unknown History dextrose 40 % oral gel (Glucose 15 g PO Q15M PRN hypoglycemia 03/22/25 Unknown History Gel) doxazosin 1 mg tablet 1 mg PO DAILY 03/22/25 Unknown History insulin glargine 100 unit/mL (3 10 unit subcut QHS 03/22/25 Unknown History mL) subcutaneous pen (Basaglar KwikPen U-100 Insulin) levothyroxine 88 mcg tablet 88 mcg PO DAILY 03/22/25 Unknown History mineral oil (Fleet Mineral Oil 118 ml ME DAILY PRN constipation 03/22/25 Unknown History enema) prednisone 10 mg tablet 10 mg PO DAILY #32 tabs 08/09/25 Unknown Rx insulin lispro 100 unit/mL 1 sliding scale dose subcut ACHS 08/23/25 Unknown History subcutaneous pen (Humalog KwikPen (U-100) Insulin) Allergy/AdvReac Type Severity Reaction Status Date / Time aspirin Allergy Unknown Nausea Verified 10/05/25 10:54 albuterol AdvReac I GET VERY Verified 10/05/25 10:54 SHAKEY/HYPERVENTILATING Penicillins AdvReac Nausea/Vom/ Verified 10/05/25 10:54 Diarrhea Family History Father Cancer bone cancer Brother Heart disease Mother Heart disease Surgical History History of section H/O mastectomy History of appendectomy Social History housing: detention Smoking Status: Former smoker Tobacco: How many years used: 50 alcohol intake: never substance use type: marijuana and other details: smokes 4 joints a day ROS Constitutional Constitutional: Denies fatigue, fever(s), poor appetite, weight gain or weight loss Gastrointestinal Gastrointestinal: Denies belching, bloating, change in bowel habits, change in stool character, chewing difficulty, coffee ground emesis, constipation, cramping, diarrhea, dyspepsia, dysphagia, early satiety, excessive flatus, fecal incontinence, heartburn, hematemesis, hematochezia, hemorrhoids, loose stools, melena, nausea, odynophagia, rectal bleeding, tenesmus, vomiting or weight changes Patient's Goals Of Care . What would you like to achieve or improve as a result of your hospital stay?: NONE Vital Signs Vital Signs Vital Signs: 10/05/25 10:56 10/05/25 10:56 10/05/25 10:56 Temperature 98.8 F Temperature Source Temporal Pulse Rate 70 Respiratory Rate 16 Respiratory Pattern Normal Blood Pressure 128/76 H Blood Pressure Mean 93 Blood Pressure Source Monitor Blood Pressure Position Semi-Fowlers Blood Pressure Location Left Forearm Baseline BP 128/76 Pulse Ox 100 Oxygen Delivery Method Room Air Weight Weight: 133 lb Body Mass Index (BMI) 25.9 Physical Exam Const alert, oriented x3, no apparent distress and healthy appearing General Appearance: cooperative GI normal to inspection, nondistended, normoactive bowel sounds, soft to palpation, non-tender and non-distended Percussion: normal to percussion Rectal Exam: deferred Assessment & Plan Assessment/Plan (1) Weight loss: (2) Personal history of colonic polyps: PLAN: Assessment and Plan Assessment and Plan (1) Elevated alkaline phosphatase level: Status: Acute Plan: Carmen is a 70-year-old female patient with past medical history of elevated alkaline phosphatase, breast cancer, stroke, osteoarthritis, marijuana abuse, diabetes, osteoporosis, hypertension and asthma here today for follow-up. Patient underwent EGD and colonoscopy due to unintentional weight loss of 20 pounds. EGD demonstrating irregular Z-line, normal stomach, chronic duodenitis and duodenal lipoma. Colonoscopy with diverticulosis, one 8 mm polyp in the transverse colon, one 4 mm polyp in the ascending colon. Pathology of distal esophagus negative for goblet cell metaplasia, duodenum with normal villous architecture with gastric mucin cell metaplasia and mild acute inflammation, hepatic flexure tubular adenoma, transverse colon multiple fragments of polyp findings suggestive of sessile serrated lesion however marked cautery artifact interferes with this assessment a low-grade dysplasia cannot be excluded. Due to pathology, Dr. Interiano recommended repeat colonoscopy in 6 months. I reviewed these results with her and the detention will be called to schedule her repeat colonoscopy. Patient endorses frequent loose stools. Recommended starting a fiber supplement. - Reviewed results -Weight is stable -Repeat colonoscopy - Start fiber supplement - Follow-up after procedure (2) Weight loss: Status: Acute (3) Colonic polyp: Status: Acute ]
--- NOTE | 2025-10-05 11:45 | COLBX_PTH ---
PATIENT: MELODY HUGGINS LOC: EN U#:[id number] AGE/SX: 70/F ROOM: RE10/05/[address]: Dr. Neftali Interiano DO : 1955 BED: DIS: 10/05/2025 SPEC #: [id number] RECD: 10/06/25 14:42 STATUS: BETSY CROW #: [id number] NESTOR: 10/05/25 11:[address]: Neftali Interiano DEPT: SURGICAL PATHOLOGY RECD BY: Juliana Casarez ENTERED: 10/07/25 09:22 SP TYPE: COLON BX OTHR DR: Dr. Allen Obrien MD Tissues: A - Transverse colon Procedures: Surgery Specimen Level IV HEADER OPERATION: Colonoscopy, polypectomy biopsy with cautery PRE-OP DIAGNOSIS: Weight loss, personal history of colonic polyps TISSUE SUBMITTED: A. Transverse colon polyp MICROSCOPIC DIAGNOSIS A. Colon, transverse, polyp, polypectomy: - Tubular adenoma. MICROSCOPIC DESCRIPTION Slides are reviewed. GROSS DESCRIPTION A. Received is one container labeled with the patient name and designated Transverse polyp. The specimen consists of multiple irregular fragments of light bella soft tissue that in aggregate measure 2.0 x 0.5 x 0.3 cm. The specimen is totally submitted in one cassette. DELMIS 10/07/2025 CPT:69227
--- NOTE | 2025-10-05 13:42 | OP.PROVAT_ITS ---
10/05/2025 Allen Obrien MD [address] [id number] Re : Colonoscopy procedure for Carmen Dale Dear Dr. Obrien This procedure was performed on Sunday, October 05, 2025. My impressions and recommendations are as follows: Impressions : - One 10 mm polyp in the transverse colon, removed with a hot snare. Resected and retrieved. - The examination was otherwise normal on direct and retroflexion views. Recommendations : - Discharge patient to home. - Resume previous diet. - Continue present medications. - Repeat colonoscopy in 3 years for surveillance. My findings are described in the full procedure note, which is enclosed. If I can be of further assistance, please feel free to contact me at . Sincerely, Neftali Interiano, 10/05/2025 1:41:38 PM This report has been signed electronically.
--- NOTE | 2025-10-05 13:42 | OP.COLON_ITS ---
Patient Name: Carmen Dale Procedure Date: 10/05/2025 12:26 PM Date of : 1955 Age: 70 Procedure: Colonoscopy Indications: High risk colon cancer surveillance: Personal history of colonic polyps Providers: Neftali Interiano DO Referring MD: Allen Obrien MD Medicines: Monitored Anesthesia Care Patient Profile: This is a 70 year old female. Refer to note in patient chart for documentation of history and physical. Last Colonoscopy: within the past year. Complications: No immediate complications. Procedure: Pre-Anesthesia Assessment: - Prior to the procedure, a History and Physical was performed, and patient medications and allergies were reviewed. The patient is competent. The risks and benefits of the procedure and the sedation options and risks were discussed with the patient. All questions were answered and informed consent was obtained. Patient identification and proposed procedure were verified by the physician in the pre-procedure area. Mental Status Examination: alert and oriented. Airway Examination: normal oropharyngeal airway and neck mobility. Respiratory Examination: clear to auscultation. CV Examination: normal. Prophylactic Antibiotics: The patient does not require prophylactic antibiotics. Prior Anticoagulants: The patient has taken no anticoagulant or antiplatelet agents except for NSAID medication. ASA Grade Assessment: II - A patient with mild systemic disease. After reviewing the risks and benefits, the patient was deemed in satisfactory condition to undergo the procedure. The anesthesia plan was to use monitored anesthesia care (MAC). Immediately prior to administration of medications, the patient was re-assessed for adequacy to receive sedatives. The heart rate, respiratory rate, oxygen saturations, blood pressure, adequacy of pulmonary ventilation, and response to care were monitored throughout the procedure. The physical status of the patient was re-assessed after the procedure. After I obtained informed consent, the scope was passed under direct vision. Throughout the procedure, the patient's blood pressure, pulse, and oxygen saturations were monitored continuously. The pediatric colonoscope was introduced through the anus and advanced to the cecum, identified by appendiceal orifice and ileocecal valve. The colonoscopy was performed without difficulty. The patient tolerated the procedure well. The quality of the bowel preparation was adequate. The ileocecal valve, appendiceal orifice, and rectum were photographed. Scope In: 1:15:26 PM Scope Withdrawal Time 0 hours 9 minutes 55 seconds Scope Out: 1:32:48 PM Total Procedure Duration Time 0 hours 17 minutes 22 seconds Findings: The perianal and digital rectal examinations were normal. A 10 mm polyp was found in the transverse colon. The polyp was sessile. The polyp was removed with a hot snare. Resection and retrieval were complete. Verification of patient identification for the specimen was done. Estimated blood loss was minimal. The exam was otherwise without abnormality on direct and retroflexion views. Impression: - One 10 mm polyp in the transverse colon, removed with a hot snare. Resected and retrieved. - The examination was otherwise normal on direct and retroflexion views. Recommendation: - Discharge patient to home. - Resume previous diet. - Continue present medications. - Repeat colonoscopy in 3 years for surveillance. Procedure Code(s): --- Professional --- 17571, Colonoscopy, flexible; with removal of tumor(s), polyp(s), or other lesion(s) by snare technique CPT copyright 2021 [employer]. All rights reserved. The codes documented in this report are preliminary and upon railcar switchman review may be revised to meet current compliance requirements. Neftali Interiano DO 10/05/2025 1:41:38 PM This report has been signed electronically. Number of Addenda: 0 Note Initiated On: 10/05/2025 12:26 PM
--- NOTE | 2025-10-05 13:43 | PCM.POST.ANE ---
Anesthesia: Postop Eval I Current Vital Signs Temperature: 98.1 F Pulse Rate: 82 Blood Pressure: 175/90 Respiratory Rate: 16 Pulse Ox: 95 Assessment Airway patent: Yes Spontaneous unlabored respirations: Yes nausea: No Vomiting: No Anesthesia Complication: No Fluid Hydration Crystalloid volume administer (ml): 300 Total IV fluid infused: 300 Progress Note Anesthesia document: Postop Eval 1 completed: Yes
--- NOTE | 2025-10-05 14:06 | POSTOPAN2_ITS ---
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.[email or web address] respirations Mental status nausea No 10/05/25 13:43 MACHINE TOOL TECHNOLOGY INSTRUCTOR.TNES Vomiting No 10/05/25 13:43 MACHINE TOOL TECHNOLOGY INSTRUCTOR.TNES Anesthesia Postop Eval I: Fluid Summary Crystalloid volume administer 300 10/05/25 13:43 MACHINE TOOL TECHNOLOGY INSTRUCTOR.TNES (ml) Colloids volume administered ( ml) Blood Product volume administered (ml) Total IV fluid infused 300 10/05/25 13:43 MACHINE TOOL TECHNOLOGY INSTRUCTOR.TNES Anesthesia Postop Eval I: Summary Notes Anesthesia Complication No 10/05/25 13:43 MACHINE TOOL TECHNOLOGY INSTRUCTOR.TNES Anesthesia Complication Comment: Post-operative progress note Anesthesia: Postop Eval II Evaluation Mental status: Awake and Calm Pain Level: 1 nausea: No Vomiting: No
--- NOTE | 2025-10-05 14:06 | PCM.POSTANE2 ---
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
== END 2025-10-05 14:47 | disposition home or self-care (01) ==
LOC: EN 10:40 → AC 10:41
PROVIDERS: PCP Family Medicine; Referring Provider Family Medicine; Visit Provider Internal Medicine Gastroenterology
PROC: 0DJD8ZZ Inspection of Lower Intestinal Tract, Via Natural or Artificial Opening Endoscopic (ICD-10-PCS; CPT 45378; principal; 2025-10-05 11:40)
DX: Z12.11 Encounter for screening for malignant neoplasm of colon (principal); J44.9 Chronic obstructive pulmonary disease, unspecified; E11.22 Type 2 diabetes mellitus with diabetic chronic kidney disease; N18.30 Chronic kidney disease, stage 3 unspecified; I12.9 Hypertensive chronic kidney disease with stage 1 through stage 4 chronic kidney disease, or unspecified chronic kidney disease; Z86.0100 Personal history of colon polyps, unspecified; Z87.891 Personal history of nicotine dependence; D12.3 Benign neoplasm of transverse colon
CPT/HCPCS: 45385; 82962; 88305; J2405